=== PATIENT | female | born 1950 | race Caucasian/White ===

== ENCOUNTER → 2018-02-26 16:37 | Outpatient (CLI) | payer MEDICARE, SELFPAY | PROVIDERS: PCP Family Medicine; Visit Provider Internal Medicine | DX: L03.031 Cellulitis of right toe (principal) | CPT/HCPCS: 87070; 87075; 87205 ==

== ENCOUNTER 2018-06-07 15:57 | Emergency (ER) | payer MEDICARE, SELFPAY ==
[2018-06-07 16:05] VITALS: BP 155/114; PULSE 133; RESP 16; TEMP 36.6; O2SAT 93; BMI 31.9
--- NOTE | 2018-06-07 16:10 | DI.RAD.S_ITS ---
PROCEDURE: XR CHEST 1V INDICATIONS: chest pain TECHNIQUE: One view of the chest was acquired. COMPARISON: None. FINDINGS: Surgical changes and devices: None. Lungs and pleura: Linear areas of increased attenuation are seen within the right hilar region and the left costophrenic angle. No focal consolidation, effusion, or pneumothorax is evident. Mediastinum: Mediastinal contours appear normal. Heart size is enlarged. Bones and chest wall: No suspicious bony lesions. Degenerative changes of the spine and shoulders are not adequately evaluated. Overlying soft tissues appear unremarkable. IMPRESSION: 1. Cardiomegaly without overt heart failure. 2. Scar versus atelectasis within the right hilum and left costophrenic angle. No definite pneumonia. Dictated by: James Pedro M.D. on 06/07/2018 at 16:23 Approved by: James Pedro M.D. on 06/07/2018 at 16:24
[2018-06-07 16:21] LABS: Add Manual Diff / Slide Review NO; Eosinophils Percent Auto 2.8 % (2-4); Hematocrit 44.3 % (36-46); Hemoglobin 14.5 g/dL (12.0-16.0); Lymphocytes Percent Auto 19.3 % (25-40); Mean Corpuscular HGB Conc 32.8 % (30-36); Mean Corpuscular Hemoglobin 28.7 PG (26-34); Mean Corpuscular Volume 87.3 fL (80-100); Monocytes Percent Auto 7.9 % (3-14); Neutrophils Absolute Auto 7900 /uL (3000-5900); Platelet Count 289 X10^3/uL (150-400); Red Blood Cell Count 5.07 X10^6/uL (4.0-5.2); Red Cell Distribution Width 14.4 % (11.6-14.8); White Blood Cell Count 11.4 X10^3/uL (4.5-11.0)
[2018-06-07 16:24] VITALS: BP 134/103; PULSE 143
[2018-06-07] MEDS: SODIUM CHLORIDE 0.9% 1,000 ML 150 ML IV (16:24)
[2018-06-07] MEDS: dilTIAZem 5 MG/ML SDV 10 MG IV ×2 (16:24→16:48)
[2018-06-07 16:29] LABS: Prothrombin Time 12.1 SECONDS (10.1-12.7)
[2018-06-07 16:31] LABS: PTT Partial Thromboplastin Tim 29 SECONDS (26.4-36.2)
[2018-06-07 16:34] LABS: Alanine Aminotransferase 25 IU/L (9-52); Albumin Globulin Ratio 1.3 (1.0-2.8); Alkaline Phosphatase 85 U/L (38-126); Aspartate Aminotransferase 22 IU/L (14-36); BUN Creatinine Ratio 27.3 (6-22); Bilirubin Total 0.5 mg/dL (0.2-1.3); Blood Urea Nitrogen 30 mg/dL (7-17); Calcium 9.9 mg/dL (8.4-10.2); Carbon Dioxide 29 mmol/L (22-32); Chloride 103 mmol/L (98-107); Creatine Kinase 109 U/L (30-135); Estimated Glomerular Filt Rate 49.2 mL/min (>60); Globulin 3.1 g/dL (1.7-4.1); Glucose 93 mg/dL (80-110); HEMOLYSIS 17 (0-50); Magnesium 1.8 mg/dL (1.6-2.3); Sodium 142 mmol/L (137-145); Total Protein 7.1 g/dL (6.3-8.2)
[2018-06-07 16:46] LABS: Troponin I < 0.012 ng/mL (0.01-0.034)
[2018-06-07 16:48] VITALS: BP 136/84; PULSE 117
[2018-06-07 16:50] LABS: CKMB % Relative Index 1.6 % (1.5-5.0); Creatine Kinase MB 1.76 ng/mL (<2.37)
--- NOTE | 2018-06-07 16:54 | PC.NURSE ---
pt c/o abd discomfort, described as butterflys for the past few weeks, pt states she has also had a few episodes of dizziness intermittently.
[2018-06-07 16:58] VITALS: BP 143/84; PULSE 102; RESP 16; O2SAT 98
[2018-06-07] MEDS: METOPROLOL IR 25 MG TABLET PO (17:27)
[2018-06-07 17:34] LABS: Thyroid Stimulating Hormone 0.53 uIU/mL (0.47-4.68)
--- NOTE | 2018-06-07 17:37 | ED_ITS ---
HPI - Arrhythmia/Palpitations General Chief Complaint: Arrhythmia/Palpitations Stated Complaint: Heart Racing Time Seen by Provider: 06/07/18 16:10 Source: patient Mode of arrival: ambulatory Limitations: no limitations History of Present Illness HPI narrative: Patient is a 67-year-old female presenting from PCP with new onset AFib with RVR. He is actually there for abdominal discomfort diarrhea. She said that she has been having diarrhea off and on for awhile. She denies any nausea or vomiting. She has no chest pain heart palpitations shortness of breath neck pain lightheadedness dizziness. Related Data Home Medications Medication Instructions Recorded Confirmed multivitamin 1 cap PO EVERY DAY #0 10/01/10 06/07/18 cyanocobalamin (vitamin B-12) 1,000 mcg PO DAILY #0 08/05/16 06/07/18 Calcium 1 dose PO DAILY 06/07/18 06/07/18 albuterol sulfate [Ventolin HFA] 2 - 4 puff INH Q4H PRN 06/07/18 06/07/18 atorvastatin [Lipitor] 10 mg PO BEDTIME 06/07/18 06/07/18 cholecalciferol (vitamin D3) 2,000 unit PO DAILY 06/07/18 06/07/18 [Vitamin D3] fluticasone 1 spray INTRANASAL DAILY 06/07/18 06/07/18 fluticasone-vilanterol [Breo 1 inhalation INHALATION DAILY 06/07/18 06/07/18 Ellipta] gabapentin [Neurontin] 600 mg PO BID 06/07/18 06/07/18 levothyroxine 75 mcg PO DAILY 06/07/18 06/07/18 losartan-hydrochlorothiazide 1 tab PO DAILY 06/07/18 06/07/18 omeprazole magnesium [Prilosec OTC] 20 mg PO DAILY 06/07/18 06/07/18 Previous Rx's Medication Instructions Recorded metoprolol tartrate 25 mg PO BID #60 tab 06/07/18 warfarin [Coumadin] 5 mg PO DAILY #30 tab 06/07/18 Allergies Allergy/AdvReac Type Severity Reaction Status Date / Time No Known Drug Allergies Allergy Verified 06/07/18 15:04 Review of Systems Review of Systems All systems reviewed & are unremarkable except as noted in HPI and below Constitutional Denies chills, Denies fever(s), Denies lethargy and Denies weakness Cardiovascular Reports as per HPI, Denies dyspnea and Denies dyspnea on exertion Respiratory Denies cough, Denies dyspnea, Denies dyspnea on exertion and Denies wheezing Gastrointestinal Gastrointestinal: Reports abdominal pain, Denies change in bowel habits, Reports diarrhea, Denies nausea and Denies vomiting Musculoskeletal Denies back pain, Denies muscle weakness, Denies numbness and Denies tingling Integumentary/Breasts Denies pruritus, Denies erythema, Denies rash and Denies wounds Neurologic Denies numbness, Denies tingling and Denies weakness Allergic/Immunologic Denies wheezing [facility] Medical History Asthma (Chronic) Hyperlipidemia (Chronic) Hypertension (Chronic ~1997) Hypothyroidism (Chronic ~2007) Osteoarthritis (Chronic) Recurrent sinusitis (Chronic ~1999) Seasonal allergies (Chronic) Sleep apnea (Chronic) Chickenpox (Resolved) History of torn meniscus of right knee (Resolved) Measles (Resolved) Surgical History History of foot surgery (Resolved) Polyp of nasal sinus (Resolved) Anesthesia (Inactive) History of hip replacement (~2010) History of hip replacement (~2012) Status post hysterectomy with oophorectomy (~1996) Family History Father Heart disease Hypertension Mother Heart disease Stroke Hypertension Diabetes mellitus Dementia Grandfather Cancer Grandmother No problems noted. Grandfather No problems noted. Grandmother No problems noted. Social History Smoking Status: Former smoker Exam Initial Vital Signs Initial Vital Signs: Vital Signs Temperature 98 F 06/07/18 16:05 Pulse Rate 133 H 06/07/18 16:05 Respiratory Rate 16 06/07/18 16:05 Blood Pressure 155/114 H 06/07/18 16:05 Pulse Oximetry 93 06/07/18 16:05 GENERAL: Alert female no acute distress HEENT: Head atraumatic,EOMI, pupils reactive CARDIOVASCULAR: Tachycardic irregularly irregular RESPIRATORY: Breath sounds equal bilaterally, no wheezes rales or rhonchi. ABDOMEN: Soft, nontender. Normoactive bowel sounds all 4 quadrants. No guarding or rebound. EXTREMITIES: Normal range of motion, no clubbing or edema. Neurovascularly intact NEUROLOGICAL: Alert and oriented x4.Normal gait and speech. SKIN: Warm, dry, no laceration, no petechiae, no rashes or lesions. Course Orders Ordered: ED Orders 06/07/18 16:05 Complete Blood Count AUTO DIFF Stat Comprehensive Metabolic Panel Stat Magnesium Stat Partial Thromboplastin Time Stat Prothrombin Time INR Stat Thyroid Stimulating Hormone Stat Troponin & CK Cardiac Panel Stat 06/07/18 16:10 XR chest 1V Stat Discontinued Medications Diltiazem HCl (Cardizem) 10 mg IV NOW ONE Stop: 06/07/18 16:11 Last Admin: 06/07/18 16:24 Dose: 10 mg Diltiazem HCl (Cardizem) 10 mg IV NOW ONE Stop: 06/07/18 16:48 Last Admin: 06/07/18 16:48 Dose: 10 mg Sodium Chloride (Normal Saline 0.9%) 1,000 mls @ 150 mls/hr IV CONT BINH Last Infusion: 06/07/18 18:04 Dose: 0 mls/hr Admin: 06/07/18 16:24 Dose: 150 mls/hr Metoprolol Tartrate (Lopressor) 25 mg PO NOW ONE Stop: 06/07/18 17:16 Last Admin: 06/07/18 17:27 Dose: 25 mg Warfarin Sodium (Coumadin) 5 mg PO NOW ONE Stop: 06/07/18 17:31 Last Admin: 06/07/18 17:52 Dose: 5 mg Vital Signs - 8 hr 06/07/18 16:05 06/07/18 16:24 06/07/18 16:48 Temperature 98 F Pulse Rate 133 H 143 H 117 H Respiratory Rate 16 Blood Pressure 155/114 H 134/103 H 136/84 Blood Pressure [Left Arm] Pulse Oximetry 93 06/07/18 16:58 06/07/18 18:05 Temperature Pulse Rate 102 H 92 H Respiratory Rate 16 16 Blood Pressure 141/81 H Blood Pressure [Left Arm] 143/84 H Pulse Oximetry 98 98 MDM - Arrhythmia/Palpitations Lab Data Attestation: I reviewed the patient's lab results. Result diagrams: 06/07/18 16:05 06/07/18 16:05 Lab Results 06/07/18 06/07/1818 Range/Units 16:05 16:05 16:05 WBC 11.4 H (4.5-11.0) X10^3/uL RBC 5.07 (4.0-5.2) X10^6/uL Hgb 14.5 (12.0-16.0) g/dL Hct 44.3 (36-46) % MCV 87.3 (80-100) fL MCH 28.7 (26-34) PG MCHC 32.8 (30-36) % RDW 14.4 (11.6-14.8) % Plt Count 289 (150-400) X10^3/uL Neut % (Auto) 69.0 (50-75) % Lymph % (Auto) 19.3 L (25-40) % Atkinson % (Auto) 7.9 (3-14) % Eos % (Auto) 2.8 (2-4) % Baso % (Auto) 1.0 (0-2) % Neut # (Auto) 7900 H (5706-6419) /uL PT 12.1 (10.1-12.7) SECONDS INR 1.0 (0.9-1.3) APTT 29 (26.4-36.2) SECONDS Sodium 142 (137-145) mmol/L Potassium 4.0 (3.4-5.1) mmol/L Chloride 103 (98-107) mmol/L Carbon Dioxide 29 (22-32) mmol/L BUN 30 H (7-17) mg/dL Creatinine 1.10 H (0.52-1.04) mg/dL Estimated GFR 49.2 L (>60) mL/min BUN/Creatinine Ratio 27.3 H (6-22) Glucose 93 (80-110) mg/dL Calcium 9.9 (8.4-10.2) mg/dL Magnesium 1.8 (1.6-2.3) mg/dL Total Bilirubin 0.5 (0.2-1.3) mg/dL AST 22 (14-36) IU/L ALT 25 (9-52) IU/L Alkaline Phosphatase 85 (38-126) U/L Total Creatine Kinase 109 (30-135) U/L CK-MB (CK-2) 1.76 (<2.37) ng/mL CK-MB (CK-2) Rel Index 1.6 (1.5-5.0) % Troponin I < 0.012 (0.01-0.034) ng/mL Total Protein 7.1 (6.3-8.2) g/dL Albumin 4.0 (3.5-5.0) g/dL Globulin 3.1 (1.7-4.1) g/dL Albumin/Globulin Ratio 1.3 (1.0-2.8) TSH (0.47-4.68) uIU/mL 06/07/18 Range/Units 16:05 WBC (4.5-11.0) X10^3/uL RBC (4.0-5.2) X10^6/uL Hgb (12.0-16.0) g/dL Hct (36-46) % MCV (80-100) fL MCH (26-34) PG MCHC (30-36) % RDW (11.6-14.8) % Plt Count (150-400) X10^3/uL Neut % (Auto) (50-75) % Lymph % (Auto) (25-40) % Atkinson % (Auto) (3-14) % Eos % (Auto) (2-4) % Baso % (Auto) (0-2) % Neut # (Auto) (4024-8077) /uL PT (10.1-12.7) SECONDS INR (0.9-1.3) APTT (26.4-36.2) SECONDS Sodium (137-145) mmol/L Potassium (3.4-5.1) mmol/L Chloride (98-107) mmol/L Carbon Dioxide (22-32) mmol/L BUN (7-17) mg/dL Creatinine (0.52-1.04) mg/dL Estimated GFR (>60) mL/min BUN/Creatinine Ratio (6-22) Glucose (80-110) mg/dL Calcium (8.4-10.2) mg/dL Magnesium (1.6-2.3) mg/dL Total Bilirubin (0.2-1.3) mg/dL AST (14-36) IU/L ALT (9-52) IU/L Alkaline Phosphatase (38-126) U/L Total Creatine Kinase (30-135) U/L CK-MB (CK-2) (<2.37) ng/mL CK-MB (CK-2) Rel Index (1.5-5.0) % Troponin I (0.01-0.034) ng/mL Total Protein (6.3-8.2) g/dL Albumin (3.5-5.0) g/dL Globulin (1.7-4.1) g/dL Albumin/Globulin Ratio (1.0-2.8) TSH 0.53 (0.47-4.68) uIU/mL Imaging Data Chest x-ray: Radiologist's impression: PROCEDURE: XR CHEST 1V INDICATIONS: chest pain TECHNIQUE: One view of the chest was acquired. COMPARISON: None. FINDINGS: Surgical changes and devices: None. Lungs and pleura: Linear areas of increased attenuation are seen within the right hilar region and the left costophrenic angle. No focal consolidation, effusion, or pneumothorax is evident. Mediastinum: Mediastinal contours appear normal. Heart size is enlarged. Bones and chest wall: No suspicious bony lesions. Degenerative changes of the spine and shoulders are not adequately evaluated. Overlying soft tissues appear unremarkable. IMPRESSION: 1. Cardiomegaly without overt heart failure. 2. Scar versus atelectasis within the right hilum and left costophrenic angle. No definite pneumonia. Dictated by: James Pedro M.D. on 06/07/2018 at 16:23 ECG Data Attestation: I personally reviewed and interpreted this ECG as follows: Interpretation: AFib with RVR rate [address] changes MDM Narrative Medical decision making narrative: The patient is completely asymptomatic. Her heart rate is 151 it does respond well to diltiazem. A discussed at length with her her options of anticoagulation, at this time she would like to start Coumadin. She understands that it will need to be checked. I have called and spoken with Dr. Juan who recommends that she call office Monday to have an INR checked. KERA?DS?-VASc Score for Atrial Fibrillation Stroke Risk from [employer] on 2017 All calculations should be rechecked by clinician prior to use RESULT SUMMARY: 2 points Stroke risk was 2.2% per year in >90,000 patients (the [place] Atrial Fibrillation Cohort Study) and 2.9% risk of stroke/TIA/systemic embolism. One recommendation suggests a 0 score is ?low? risk and may not require anticoagulation; a 1 score is ?low-moderate? risk and should consider antiplatelet or anticoagulation, and score 2 or greater is ?moderate-high? risk and should otherwise be an anticoagulation candidate. INPUTS: Age ?> 0 = <65 Sex ?> 1 = Female <abbr title='Congestive heart failure'>CHF</abbr> history ?> 0 = No Hypertension history ?> 1 = Yes Stroke / TIA / Thromboembolism history ?> 0 = No Vascular disease history ?> 0 = No Diabetes history ?> 0 = No Discharge Plan Departure Patient Disposition: Home Clinical Impression: Atrial fibrillation Discharge Date/Time: 06/07/18 18:07 Interventions: ED Discharge Assessment Last Done: 06/07/18 18:05 Instructions: Atrial Fibrillation Activity Restrictions/Additional Instructions: *You have been diagnosed with atrial fibrillation *What to do: You will need to have your INR checked frequently initially. *Continue to take medications as directed: FAXED TO [employer] [place] [employer] [facility] Metoprolol 25 mg twice a day Coumadin/warfarin 5 mg once a day *Follow up with your primary care provider in 2-3 days, call tomorrow to set up INR appointment next week and Dr. Valladares will see you when she returned *Return to ER if you should have bloody stool, chest pain, heart palpitations, trauma or injury to head or any new, worsening or concerning symptoms Prescriptions: New warfarin [Coumadin] 5 mg tablet 5 mg PO DAILY Qty: 30 RF: 0 metoprolol tartrate 25 mg tablet 25 mg PO BID Qty: 60 RF: 0 No Action multivitamin 1 cap PO EVERY DAY Qty: 0 RF: 0 cyanocobalamin (vitamin B-12) 1,000 MCG tablet extended release 1,000 mcg PO DAILY Qty: 0 RF: 0 levothyroxine 75 mcg tablet 75 mcg PO DAILY RF: 0 atorvastatin [Lipitor] 10 mg tablet 10 mg PO BEDTIME RF: 0 gabapentin [Neurontin] 300 mg capsule 600 mg PO BID RF: 0 losartan-hydrochlorothiazide 50-12.5 mg tablet 1 tab PO DAILY RF: 0 omeprazole magnesium [Prilosec OTC] 20 mg Tablet,Delayed Release (Dr/Ec) 20 mg PO DAILY RF: 0 cholecalciferol (vitamin D3) [Vitamin D3] 2,000 unit Capsule 2,000 unit PO DAILY RF: 0 Calcium 1 dose PO DAILY RF: 0 albuterol sulfate [Ventolin HFA] 90 MCG/PUFF HFA aerosol inhaler 2 - 4 puff INH Q4H PRN (Reason: Shortness Of Breath) RF: 0 fluticasone 16 GM spray,suspension 1 spray Intranasal DAILY RF: 0 fluticasone-vilanterol [Breo Ellipta] 100-25 mcg/dose blister with device 1 inhalation INHALATION DAILY RF: 0 Referrals: Tasha Valladares DO [Primary Care Provider] -
[2018-06-07] MEDS: WARFARIN 5 MG TABLET PO (17:52)
[2018-06-07 18:05] VITALS: BP 141/81; PULSE 92; RESP 16; O2SAT 98
== END 2018-06-07 18:07 | disposition home or self-care (01) ==
PROVIDERS: Emergency Provider Emergency Medicine; PCP Family Medicine
DX: I48.91 Unspecified atrial fibrillation (principal)
CPT/HCPCS: 36591; 71045; 80053; 82550; 82553; 83735; 84443; 84484; 85025; 85610; 85730; 93005; 93010; 96361; 96374; 96376; 99283; 99285

== ENCOUNTER → 2018-06-08 06:01 | Outpatient (CLI) | payer MEDICARE, SELFPAY | PROVIDERS: PCP Family Medicine; Visit Provider Family Medicine ==

== ENCOUNTER → 2018-06-12 13:30 | Outpatient (CLI) | payer MEDICARE, SELFPAY ==
[2018-06-12 15:43] LABS: Adenovirus F 40/41 Not Detected (Not Detect); Astrovirus Not Detected (Not Detect); Campylobacter Not Detected (Not Detect); Clostridium difficile toxin AB Not Detected (Not Detect); Cryptosporidium Not Detected (Not Detect); Cyclospora cayetanensis Not Detected (Not Detect); Entamoeba histolytica Not Detected (Not Detect); Enteroaggregative E.coli Not Detected (Not Detect); Enteropathogenic E.coli Not Detected (Not Detect); Enterotoxigenic E.coli It/st Not Detected (Not Detect); Giardia lamblia Not Detected (Not Detect); Norovirus GI/GII Not Detected (Not Detect); Plesiomonsa shigelloides Not Detected (Not Detect); Rotavirus A Not Detected (Not Detect); Salmonella Not Detected (Not Detect); Sapovirus Not Detected (Not Detect); Shiga-like toxin-prod E.coli Not Detected (Not Detect); Shigella/Enteroinvasive E.coli Not Detected (Not Detect); Vibrio Not Detected (Not Detect); Vibrio cholerae Not Detected (Not Detect); Yersinia enterocolitica Not Detected (Not Detect)
== END ==
PROVIDERS: Family Provider Family Medicine; PCP Family Medicine; Visit Provider Internal Medicine
DX: R19.7 Diarrhea, unspecified (principal)
CPT/HCPCS: 87507

== ENCOUNTER → 2018-06-27 09:38 | Outpatient (CLI) | payer MEDICARE, SELFPAY ==
--- NOTE | 2018-06-27 09:40 | DI.ECHO.S_ITS ---
[place] +---------+ [facility] +---------+ : : [address] : : : : [id number] : : : : Phone: [phone]+ Echocardiogram Report + + :Name: NITZA ARAUJO Study Date: 06/27/2018 Height: 65 in : :[facility] Weight: 206 lb : : Gender: Female BSA: 2.0 m2 : :: 1950 Age: 67 yrs BP: 112/78 mmHg: :Reason For Study: Atrial fibrillation : : Performed By: Mary Boyd : :Referring: ALLYSON CA R : + + Interpretation Summary The study quality was technically adequate. The patient was in atrial fibrillation with heart rates between 109-139 bpm during the exam. -The left ventricle is normal in size and wall thickness. Ejection fraction is 60-65% although there is [id number] variability due to atrial fibrillation. There is no obvious regional wall motion abnormalities. -Diastolic function could not be accurately assessed due to atrial fibrillation. -The right ventricle is normal in size and function by visual assessment.TAPSE is at least 1.8 cm. -The right ventricular systolic pressure is estimated to be at least 31 mmHg based on an estimated right atrial pressure of 3 mm Hg. -No significant valve pathology. -There is no prior echocardiogram noted for this patient. Procedure: A two-dimensional transthoracic echocardiogram with color flow and Doppler was performed. The study quality was technically adequate. There is no prior echocardiogram noted for this patient. The patient was in atrial fibrillation with heart rates between 109-139 bpm during the exam. Left Ventricle: The left ventricle is normal in size. There is normal left ventricular wall thickness. The ejection fraction is estimated to be 60-65%. There are no obvious focal wall motion abnormalities noted but poor endocardial definition reduces the sensitivity for the detection of such. Diastolic function could not be accurately assessed due to atrial fibrillation. Right Ventricle: The right ventricle is normal in size and function. Atria: The left atrium is mildly dilated. Right atrial size is normal. There is no Doppler evidence for an interatrial shunt. Mitral Valve: The mitral valve is grossly normal. There is no mitral valve stenosis. There is mild to moderate mitral regurgitation. Aortic Valve: The aortic valve is trileaflet. The aortic valve opens well. There is no aortic valve stenosis. No aortic regurgitation is present. Tricuspid Valve: The tricuspid valve leaflets are thin and pliable. There is mild to moderate tricuspid regurgitation. The right ventricular systolic pressure is estimated to be at least 31 mmHg based on an estimated right atrial pressure of 3 mm Hg. Pulmonic Valve: The pulmonic valve is not well seen, but is grossly normal. There is no pulmonic valvular regurgitation. Great Vessels: The aortic root is normal size. The dimensions of the ascending aorta are normal. The aortic arch is normal in size. The IVC is of normal diameter and collapses greater than 50% with a sniff. This suggests a low right atrial pressure of 3 mm Hg. Pericardium/ Pleura There is no pericardial effusion. There is no pleural effusion. MMode/2D Measurements & Calculations LVIDd: 4.6 cm Ao root diam: 3.0 cm LVIDs: 3.0 cm Aortic Jxn: 2.6 cm FS: 34.4 % asc Aorta Diam: 3.1 cm EPSS: 0.18 cm Ao Arch Diam (Prox Trans): 2.8 cm IVSd: 0.86 cm LVPWd: 0.80 cm LV abdalla. diameter/BSA (cm/m^2): 2.3 LV sys. diameter/BSA (cm/m^2): 1.5 LA dimension: 4.5 cm RA long axis: 5.3 cm LA A2 area: 22.4 cm2 RA area: 19.3 cm2 LA A4 area: 23.7 cm2 RA vol: 59.7 ml LA length (vol): 5.6 cm RA : 29.8 ml/m2 LA vol: 80.1 ml IVC diam: 2.0 cm LA vol index: 40.0 ml/m2 RVDd major: 5.8 cm RVD1 (basal): 3.2 cm RVD2 (mid): 2.9 cm Doppler Measurements & Calculations Ao V2 max: 108.5 cm/sec MV P1/2t: 43.5 msec Ao V2 mean: 72.5 cm/sec Ao max P.7 mmHg Ao mean P.4 mmHg Ao V2 VTI: 18.9 cm TR max alley: 264.8 cm/sec MV V2 mean: 61.8 cm/sec TR max P.1 mmHg MV mean P.0 mmHg PA V2 max: 63.2 cm/sec MV V2 VTI: 14.4 cm PA V2 mean: 43.8 cm/sec PA mean P.86 mmHg PA Accel Time: 0.08 sec MV P1/2t max alley: 109.6 cm/sec MVA(P1/2t): 5.1 cm2 Electronically signed by: Tomasz Rivers M.D. on Reading Physician:06/27/2018 11:14 AM
== END ==
PROVIDERS: PCP Family Medicine; Visit Provider Internal Medicine
DX: I48.91 Unspecified atrial fibrillation (principal); I08.1 Rheumatic disorders of both mitral and tricuspid valves
CPT/HCPCS: 93306

== ENCOUNTER → 2018-07-17 13:45 | Outpatient (CLI) | payer MEDICARE, SELFPAY ==
--- NOTE | 2018-07-17 13:46 | DI.NM.S_ITS ---
PROCEDURE: NM BARRY PERF SPECT R&S PHARM Rest and pharmacological stress myocardial perfusion SPECT with gated imaging and ejection fraction RADIOPHARMACEUTICAL: 23.9 mCi Tc-99m tetrafosmin IV at rest and 24.3 mCi Tc-99m tetrafosmin IV at peak effect of pharmacological stress. [id number] was performed. INDICATIONS: Afib TECHNIQUE: Radiopharmaceutical was injected at peak stress test, and also at rest. SPECT images were obtained. SPECT myocardial perfusion images were displayed in short axis, horizontal long axis, and vertical long axis views. Gated images were reviewed using [employer] software. COMPARISON: None. CARDIAC STRESS: A pharmacologic stress test was performed under the supervision of an attending staff, using an infusion of lexiscan 0.4mg IV X1. Hemodynamic data: There is normal blood pressure and heart rate response to pharmacologic stress. Symptoms: The patient denied anginal chest pain. Aminophylline: none EKG: Atrial fibrillation with rapid ventricular response present throughout the study. No diagnostic changes of ischemia. FINDINGS: Raw data: There is good myocardial uptake of radiotracer. No significant motion artifacts. Nalt-rj-dgbwa ratio is 0.39 (normal is less than 0.38 for tetrafosmin tracer). Left ventricle function: Gated images demonstrate normal left ventricular wall thickening. No segmental wall motion abnormalities. No transient ischemic dilation; TID is 0.88 (normal less than 1.3). Left ventricle resting end diastolic volume is 48 mL. Left ventricle stress ejection fraction is 75%; normal range is above 45%. Myocardial perfusion: There is normal distribution of activity in the right and left ventricular myocardium. No fixed or reversible perfusion defects. IMPRESSION: Low risk, normal pharmaceutical nuclear stress test. Atrial fibrillation with rapid ventricular response present throughout the study. 1) Normal perfusion images, with no evidence of ischemia or infarction. 2) Normal left ventricular size, wall motion, and systolic function (post stress EF 75%). 3) No ECG evidence of ischemia. 4) Atrial fibrillation with rapid ventricular response present throughout the study. 5) No angina during the study. 6) No prior nuclear stress test available for comparison. Dictated by: Roseline Koo MD on 07/18/2018 at 12:55 Approved by: Roseline Koo MD on 07/18/2018 at 12:58
--- NOTE | 2018-07-17 14:59 | PM.TREADMILL ---
Cardiac Stress Test Report Referral & Results Date Patient Seen: 07/17/18 Requesting provider: Tasha Valladares Indication: Atrial fibrillation Rest ECG: Atrial fibrillation with rapid ventricular response Procedure Note: After both written and verbal informed consent the patient had an IV started by the diagnostic imaging RN, and then was hooked up to the treadmill monitoring system. The Lexiscan material, and then the Cardiolite tracer, were administered sequentially. An additional 3 min was spent monitoring the patient while supine on the gurney. The patient had a normal response to all infused materials. Impression: Patient had normal response as above, perfusion imaging will be reported separately Patient also tachycardic at rest. She was instructed to double the dose of her metoprolol so that she will now be taking 50 mg metoprolol tartrate twice daily. She has a follow-up with Dr. Valladares in 10 days or so Please note: Actual ECG tracings can be found in the PACS system.
== END ==
PROVIDERS: PCP Family Medicine; Visit Provider Internal Medicine
DX: I48.91 Unspecified atrial fibrillation (principal)
CPT/HCPCS: 78452; 93016; 93017; 93018; A9502; J2785

== ENCOUNTER → 2018-11-02 10:42 | Outpatient (CLI) | payer MEDICARE, SELFPAY ==
[2018-11-02 11:51] LABS: Alanine Aminotransferase 21 IU/L (9-52); Albumin Globulin Ratio 1.3 (1.0-2.8); Alkaline Phosphatase 80 U/L (38-126); Aspartate Aminotransferase 22 IU/L (14-36); Bilirubin Total 0.7 mg/dL (0.2-1.3); Blood Urea Nitrogen 25 mg/dL (7-17); Calcium 9.3 mg/dL (8.4-10.2); Carbon Dioxide 31 mmol/L (22-32); Chloride 100 mmol/L (98-107); Estimated Glomerular Filt Rate 54.8 mL/min (>60); Globulin 3.1 g/dL (1.7-4.1); Glucose 89 mg/dL (80-110); HEMOLYSIS < 15 (0-50); Magnesium 1.7 mg/dL (1.6-2.3); Potassium 3.7 mmol/L (3.4-5.1); Sodium 139 mmol/L (137-145); Total Protein 7.1 g/dL (6.3-8.2)
[2018-11-02 13:24] LABS: Thyroid Stimulating Hormone 0.15 uIU/mL (0.47-4.68)
[2018-11-03 12:13] LABS: Free T3, Triiodothyronine Free 3.42 pg/mL (2.77-5.27); Free T4, Direct Thyroxine 2.63 ng/dL (0.78-2.19)
== END ==
PROVIDERS: Family Provider Family Medicine; PCP Family Medicine; Visit Provider Internal Medicine Cardiovascular Disease
DX: I48.1 Persistent atrial fibrillation (principal); I10 Essential (primary) hypertension; E03.9 Hypothyroidism, unspecified
CPT/HCPCS: 36415; 80053; 83735; 84439; 84443; 84481

== ENCOUNTER → 2018-11-20 11:37 | Outpatient (CLI) | payer MEDICARE, SELFPAY ==
[2018-11-20 12:09] LABS: Add Manual Diff / Slide Review NO; Basophils Absolute Auto 100 /uL (0-100); Eosinophils Absolute Auto 300 /uL (0-450); Eosinophils Percent Auto 3.3 % (2-4); Hematocrit 45.6 % (36-46); Lymphocytes Absolute Auto 1500 /uL (1100-4500); Lymphocytes Percent Auto 16.4 % (25-40); Mean Corpuscular HGB Conc 32.8 % (30-36); Mean Corpuscular Hemoglobin 27.8 PG (26-34); Mean Corpuscular Volume 84.7 fL (80-100); Monocytes Absolute Auto 700 /uL (0-900); Neutrophils Absolute Auto 6600 /uL (1500-7000); Neutrophils Percent Auto 71.3 % (50-75); Platelet Count 229 X10^3/uL (150-400); Red Blood Cell Count 5.39 X10^6/uL (4.0-5.2); Red Cell Distribution Width 15.8 % (11.6-14.8); White Blood Cell Count 9.3 X10^3/uL (4.5-11.0)
== END ==
PROVIDERS: Family Provider Family Medicine; PCP Family Medicine; Visit Provider Internal Medicine Cardiovascular Disease
DX: I48.1 Persistent atrial fibrillation (principal)
CPT/HCPCS: 36415; 85025

== ENCOUNTER → 2018-12-06 12:47 | Outpatient (CLI) | payer MEDICARE, SELFPAY ==
[2018-12-06 13:29] LABS: B Type Natriuretic Peptide 227 (<100)
== END ==
PROVIDERS: Family Provider Family Medicine; PCP Family Medicine; Visit Provider Nurse Practitioner
DX: R60.0 Localized edema (principal); I48.1 Persistent atrial fibrillation; I10 Essential (primary) hypertension; R06.02 Shortness of breath
CPT/HCPCS: 36415; 83880

== ENCOUNTER → 2018-12-20 14:38 | Outpatient (CLI) | payer MEDICARE, SELFPAY ==
[2018-12-20 15:44] LABS: BUN Creatinine Ratio 21.8 (6-22); Blood Urea Nitrogen 24 mg/dL (7-17); Calcium 9.3 mg/dL (8.4-10.2); Carbon Dioxide 33 mmol/L (22-32); Chloride 101 mmol/L (98-107); Estimated Glomerular Filt Rate 49.1 mL/min (>60); Glucose 95 mg/dL (80-110); HEMOLYSIS < 15 (0-50); Potassium 4.5 mmol/L (3.4-5.1); Sodium 141 mmol/L (137-145)
== END ==
PROVIDERS: PCP Family Medicine; Visit Provider Nurse Practitioner
DX: I48.1 Persistent atrial fibrillation (principal); I10 Essential (primary) hypertension; R60.0 Localized edema
CPT/HCPCS: 36415; 80048

== ENCOUNTER → 2019-01-14 11:41 | Outpatient (CLI) | payer MEDICARE, SELFPAY ==
[2019-01-14 13:48] LABS: Free T3, Triiodothyronine Free 3.36 pg/mL (2.77-5.27); Free T4, Direct Thyroxine 1.74 ng/dL (0.78-2.19)
[2019-01-14 14:01] LABS: Thyroid Stimulating Hormone 0.32 uIU/mL (0.47-4.68)
[2019-01-14 14:59] LABS: BUN Creatinine Ratio 24.5 (6-22); Blood Urea Nitrogen 27 mg/dL (7-17); Calcium 9.3 mg/dL (8.4-10.2); Carbon Dioxide 29 mmol/L (22-32); Chloride 101 mmol/L (98-107); Estimated Glomerular Filt Rate 49.1 mL/min (>60); Glucose 91 mg/dL (80-110); HEMOLYSIS < 15 (0-50); Magnesium 1.6 mg/dL (1.6-2.3); Sodium 141 mmol/L (137-145)
[2019-01-16 16:05] LABS: Triiodothyronine T3 Total 105 ng/dL (76-181)
== END ==
PROVIDERS: PCP Family Medicine; Visit Provider Internal Medicine Cardiovascular Disease
DX: I48.0 Paroxysmal atrial fibrillation (principal); I10 Essential (primary) hypertension; E03.9 Hypothyroidism, unspecified
CPT/HCPCS: 36415; 80048; 83735; 84436; 84439; 84443; 84480; 84481

== ENCOUNTER → 2019-02-18 10:36 | Outpatient (CLI) | payer MEDICARE, SELFPAY ==
[2019-02-18 11:59] LABS: INR 1.8 (0.9-1.3); Prothrombin Time 21.1 SECONDS (10.1-12.7)
[2019-02-18 12:34] LABS: Thyroid Stimulating Hormone 1.81 uIU/mL (0.47-4.68)
== END ==
PROVIDERS: Nurse Practitioner; PCP Family Medicine; Visit Provider Nurse Practitioner
DX: R00.2 Palpitations (principal); R60.0 Localized edema; I48.1 Persistent atrial fibrillation; I10 Essential (primary) hypertension; R06.02 Shortness of breath; Z51.81 Encounter for therapeutic drug level monitoring; Z79.01 Long term (current) use of anticoagulants
CPT/HCPCS: 36415; 84443; 85610

== ENCOUNTER → 2019-02-28 09:07 | Outpatient (CLI) | payer MEDICARE, SELFPAY ==
--- NOTE | 2019-02-28 | DI.ECHO.S_ITS ---
[facility] +---------+ : : [address] : [address] [place] : : : : [id number] : : : : Phone: [phone]+ Echocardiogram Report + + :Name: NITZA ARAUJO Study Date: 02/28/2019 Height: 65 in : :[facility] Weight: 213 lb : : Gender: Female BSA: 2.0 m2 : :: 1950 Age: 68 yrs BP: 128/75 mmHg: :Reason For Study: AFIB : : Performed By: Chicho Godoy : :Referring: KIERRA MARR N : + + Interpretation Summary The left ventricle is normal in size. Left ventricular ejection fraction is estimated to be 60 +/- 5%. There has been no significant change in LV EF since the previous study. The right ventricle is normal in size and function. There is moderate mitral regurgitation. Compared to the prior echo study, there has been an increase in the severity of mitral regurgitation. There is moderate tricuspid regurgitation. Compared to the prior echo exam, there has been an increase in TR severity. The right ventricular systolic pressure is estimated to be at least 28 mmHg based on an estimated right atrial pressure of 3 mm Hg. Procedure: A two-dimensional transthoracic echocardiogram with color flow and Doppler was performed. The study quality was technically adequate. Comparison is made with the echocardiogram of 06/27/18. The patient was in atrial fibrillation with rapid ventricular response during the exam with a heart rate exceeding 100 bpm. The patient had a heart rate of 80-116 beats per minute. Left Ventricle: The left ventricle is normal in size. There is normal left ventricular wall thickness. There is no thrombus. Left ventricular ejection fraction is estimated to be 60 +/- 5%. There has been no significant change since the previous study. There are no focal wall motion abnormalities. E/E' med: 14.7. Right Ventricle: The right ventricle is normal in size and function. Atria: The left atrium is moderately dilated. Both atria have mildly increased in size since the prior echo exam. The right atrium is moderately dilated. The interatrial septum is intact with no evidence for an atrial septal defect. Mitral Valve: The mitral valve leaflets are slightly calcified. There is mild mitral annular calcification. There is moderate mitral regurgitation. Compared to the prior echo study, there has been an increase in the severity of mitral regurgitation. Aortic Valve: The aortic valve is trileaflet. The aortic valve opens well. There is no aortic valve stenosis. No aortic regurgitation is present. Tricuspid Valve: The tricuspid valve is normal. There is moderate tricuspid regurgitation. The right ventricular systolic pressure is estimated to be at least 28 mmHg based on an estimated right atrial pressure of 3 mm Hg. Compared to the prior echo exam, there has been an increase in TR severity. Compared to the prior echo exam, there has been no change in the severity of pulmonary hypertension. Pulmonic Valve: The pulmonic valve is not well seen, but is grossly normal. There is no pulmonic valvular regurgitation. Great Vessels: The aortic root is normal size. The dimensions of the ascending aorta are normal. The pulmonary artery is normal size. The IVC is of normal diameter and collapses greater than 50% with a sniff. This suggests a low right atrial pressure of 3 mm Hg. Pericardium/ Pleura There is no pericardial effusion. There is no pleural effusion. MMode/2D Measurements & Calculations LVIDd: 4.2 cm LVOT diam: 2.1 cm LVIDs: 2.6 cm Ao root diam: 3.0 cm FS: 38.9 % Aortic Jxn: 2.6 cm EPSS: 0.18 cm asc Aorta Diam: 3.2 cm IVSd: 0.86 cm Ao Arch Diam (Prox Trans): 2.6 cm LVPWd: 0.95 cm LV abdalla. diameter/BSA (cm/m^2): 2.1 LV sys. diameter/BSA (cm/m^2): 1.3 LA dimension: 4.7 cm RA long axis: 5.3 cm LA A2 area: 20.1 cm2 RA area: 23.6 cm2 LA A4 area: 25.7 cm2 RA vol: 89.8 ml LA length (vol): 5.8 cm RA : 44.2 ml/m2 LA vol: 75.4 ml IVC diam: 1.8 cm LA vol index: 37.1 ml/m2 RVD1 (basal): 3.5 cm RVD2 (mid): 3.8 cm Doppler Measurements & Calculations Ao V2 max: 95.6 cm/sec LVOT Max Jordan: 61.4 cm/sec Ao V2 mean: 69.0 cm/sec LV V1 max P.5 mmHg Ao max P.7 mmHg LV V1 VTI: 11.3 cm Ao mean P.1 mmHg GENESIS(I,D): 2.2 cm2 Ao V2 VTI: 17.1 cm GENESIS(V,D): 2.1 cm2 sev ratio: 0.66 GENESIS indexed to BSA (cm^2/m^2): 1.1 MV E max jordan: 91.5 cm/sec TR max jordan: 250.6 cm/sec MV A max jordan: 2.2 cm/sec TR max P.2 mmHg MV E/A: 42.2 PA V2 max: 61.3 cm/sec Med Peak E' Jordan: 6.2 cm/sec PA V2 mean: 47.3 cm/sec E/E' med: 14.7 PA mean P.94 mmHg Lat Peak E' Jordan: 8.4 cm/sec PA pr(Accel): 49.1 mmHg E/E' lat: 10.9 PA Accel Time: 0.07 sec E/e' average: 12.8 MV dec time: 0.13 sec SV(LVOT): 37.6 ml Reading Physician:01:06 PM
== END ==
PROVIDERS: Family Provider Family Medicine; PCP Family Medicine; Visit Provider Nurse Practitioner
DX: I48.1 Persistent atrial fibrillation (principal); R60.0 Localized edema
CPT/HCPCS: 93306

== ENCOUNTER → 2019-05-15 10:46 | Outpatient (CLI) | payer MEDICARE, SELFPAY ==
[2019-05-15 11:34] LABS: Add Manual Diff / Slide Review NO; Basophils Absolute Auto 100 /uL (0-100); Basophils Percent Auto 0.7 % (0-2); Eosinophils Absolute Auto 300 /uL (0-450); Hematocrit 39.1 % (36-46); Hemoglobin 12.9 g/dL (12.0-16.0); Lymphocytes Absolute Auto 1300 /uL (1100-4500); Lymphocytes Percent Auto 12.4 % (25-40); Mean Corpuscular Hemoglobin 28.8 PG (26-34); Mean Corpuscular Volume 87.4 fL (80-100); Monocytes Absolute Auto 1000 /uL (0-900); Monocytes Percent Auto 9.7 % (3-14); Neutrophils Absolute Auto 7800 /uL (1500-7000); Neutrophils Percent Auto 74.2 % (50-75); Platelet Count 230 X10^3/uL (150-400); Red Blood Cell Count 4.47 X10^6/uL (4.0-5.2); Red Cell Distribution Width 14.8 % (11.6-14.8); White Blood Cell Count 10.5 X10^3/uL (4.5-11.0)
[2019-05-15 11:39] LABS: HEMOLYSIS < 15 (0-50); Iron 64 ug/dL (37-170)
[2019-05-15 11:47] LABS: Transferrin 261 mg/dL (206-381)
[2019-05-15 11:57] LABS: Free T3, Triiodothyronine Free 3.42 pg/mL (2.77-5.27); Free T4, Direct Thyroxine 1.83 ng/dL (0.78-2.19)
[2019-05-15 12:11] LABS: Thyroid Stimulating Hormone 2.52 uIU/mL (0.47-4.68)
[2019-05-15 12:18] LABS: Ferritin 13.8 ng/mL (11.1-264); Vitamin D 25 Hydroxy (D3) 45.5 ng/mL (30.0-100.0)
[2019-05-15 12:32] LABS: Vitamin B12 > 1000 pg/mL (239-931)
[2019-05-17 14:04] LABS: Percent Iron Saturation 20 % (15-50); Total Iron Binding Capacity 326 ug/dL (265-497)
[2019-05-17 15:29] LABS: Homocysteine 10.9 umol/L (< 10.4)
[2019-05-17 23:30] LABS: Methylmalonic Acid 281 nmol/L (87-318)
== END ==
PROVIDERS: PCP Family Medicine; Visit Provider Family Medicine
DX: D64.9 Anemia, unspecified (principal); G47.33 Obstructive sleep apnea (adult) (pediatric); G62.9 Polyneuropathy, unspecified; I48.91 Unspecified atrial fibrillation; M81.0 Age-related osteoporosis without current pathological fracture; I10 Essential (primary) hypertension
CPT/HCPCS: 36415; 82306; 82607; 82728; 83090; 83540; 83550; 83921; 84439; 84443; 84481; 85025

== ENCOUNTER → 2019-06-28 11:10 | Outpatient (CLI) | payer MEDICARE, SELFPAY ==
[2019-06-28 12:04] LABS: Blood Urea Nitrogen 24 mg/dL (7-17); Calcium 9.1 mg/dL (8.4-10.2); Carbon Dioxide 30 mmol/L (22-32); Chloride 98 mmol/L (98-107); Estimated Glomerular Filt Rate 44.4 mL/min (>60); Glucose 105 mg/dL (80-110); HEMOLYSIS < 15 (0-50); Potassium 3.7 mmol/L (3.4-5.1); Sodium 137 mmol/L (137-145)
== END ==
PROVIDERS: PCP Family Medicine; Visit Provider Internal Medicine Cardiovascular Disease
DX: I10 Essential (primary) hypertension (principal)
CPT/HCPCS: 36415; 80048

== ENCOUNTER → 2019-11-26 11:21 | Outpatient (CLI) | payer MEDICARE, SELFPAY ==
[2019-12-09 11:26] LABS: Bullous Pemphigoid 230 IgG AB 110.5 U/ml (.)
== END ==
PROVIDERS: PCP Family Medicine; Referring Provider Dermatology; Visit Provider Dermatology
DX: L30.9 Dermatitis, unspecified (principal)
CPT/HCPCS: 83516

== ENCOUNTER → 2019-12-04 12:37 | Outpatient (CLI) | payer MEDICARE, SELFPAY ==
--- NOTE | 2019-12-04 12:38 | DI.CT.S_ITS ---
PROCEDURE: CT CHEST WO CON INDICATIONS: 3 month pulmonary nodule follow up TECHNIQUE: Noncontrast 5 mm thick sections acquired from the pulmonary apices to the posterior costophrenic angles. 1 mm lung window, 5 mm thick coronal and sagittal and 7 mm axial MIP reformats were then acquired. For radiation dose reduction, the following was used: automated exposure control, adjustment of mA and/or kV according to patient size. COMPARISON: None. FINDINGS: Image quality: Excellent. Lungs and pleura: 7 mm left upper lobe lung nodule, stable (3/136). 6 mm subpleural left lower lobe nodule (3/186) subpleural right middle lobe nodule measuring 6 mm (3/193), round right lower lobe 5 mm nodule (182), right middle lobe nodule measuring 5 mm (178), and right pedro-fissural nodules are stable. Mild chronic medial left lower lobe subpleural atelectatic changes and minor bibasilar scarring. No acute air space opacities. No pleural effusions or pneumothorax. Central and peripheral airways are patent and normal in caliber. Mediastinum: Heart size is normal. No pericardial effusion. No mediastinal adenopathy by size criteria. Thoracic aorta and central pulmonary arteries are normal in size. Esophagus is normal in caliber. No hiatal hernia. Bones and chest wall: No suspicious bony lesions. No vertebral body compression fractures. No axillary or supraclavicular adenopathy by size criteria. Thyroid gland is is diminutive.. Abdomen: Visualized upper abdominal solid organs and bowel loops appear normal in the absence of contrast. Prominent gallstone. IMPRESSION: 1. Stable bilateral pulmonary nodules as described. Continued followup in 12 months is recommended. 2. Cholelithiasis. Dictated by: Cammy Barraza M.D. on 12/04/2019 at 14:07 Approved by: Cammy Barraza M.D. on 12/04/2019 at 14:17
== END ==
PROVIDERS: PCP Family Medicine; Referring Provider Family Medicine; Visit Provider Family Medicine
DX: R91.8 Other nonspecific abnormal finding of lung field (principal); K80.20 Calculus of gallbladder without cholecystitis without obstruction
CPT/HCPCS: 71250

== ENCOUNTER → 2020-02-05 08:39 | Outpatient (CLI) | payer MEDICARE, SELFPAY ==
[2020-02-05 09:25] LABS: INR 2.2 (0.9-1.3); Prothrombin Time 25.4 SECONDS (10.1-12.7)
[2020-02-05 09:28] LABS: PTT Partial Thromboplastin Tim 33 SECONDS (26.4-36.2)
[2020-02-05 09:30] LABS: Alanine Aminotransferase 36 IU/L (<35); Albumin 3.6 g/dL (3.5-5.0); Albumin Globulin Ratio 1.2 (1.0-2.8); Alkaline Phosphatase 117 U/L (38-126); Aspartate Aminotransferase 30 IU/L (14-36); BUN Creatinine Ratio 26.4 (6-22); Bilirubin Total 0.8 mg/dL (0.2-1.3); Blood Urea Nitrogen 28 mg/dL (7-17); Calcium 9.2 mg/dL (8.4-10.2); Carbon Dioxide 31 mmol/L (22-32); Chloride 94 mmol/L (98-107); Estimated Glomerular Filt Rate 51.1 mL/min (>60); Glucose 71 mg/dL (80-110); HEMOLYSIS < 15 (0-50); Sodium 132 mmol/L (137-145); Total Protein 6.6 g/dL (6.3-8.2)
== END ==
PROVIDERS: PCP Family Medicine; Referring Provider Family Medicine; Visit Provider Family Medicine
DX: R79.89 Other specified abnormal findings of blood chemistry (principal); Z79.01 Long term (current) use of anticoagulants; I48.91 Unspecified atrial fibrillation; Z79.899 Other long term (current) drug therapy
CPT/HCPCS: 36415; 80053; 85610; 85730

== ENCOUNTER → 2020-02-12 14:33 | Outpatient (CLI) | payer MEDICARE, SELFPAY ==
[2020-02-13 07:22] LABS: Hepatitis B Core Antibody Negative (Negative)
[2020-02-13 07:38] LABS: Hepatitis B Core IgM Negative (Negative); Hepatitis B Surf Ab Qualitativ Non Reactive (.)
[2020-02-13 19:28] LABS: Hepatitis B Surface Antigen NEGATIVE s/c (NEGATIVE)
[2020-02-14 12:35] LABS: Hepatitis B Virus DNA HBV DNA not detected IU/mL (.)
== END ==
PROVIDERS: PCP Family Medicine; Referring Provider Family Medicine; Visit Provider Family Medicine
DX: R76.8 Other specified abnormal immunological findings in serum (principal); R79.89 Other specified abnormal findings of blood chemistry
CPT/HCPCS: 36415; 86704; 86705; 86706; 87340; 87517

== ENCOUNTER → 2020-02-15 10:39 | Outpatient (CLI) | payer MEDICARE, SELFPAY ==
--- NOTE | 2020-02-15 | DI.MG.S_ITS ---
BILATERAL DIGITAL SCREENING MAMMOGRAM 3D/2D WITH CAD: 02/15/2020 CLINICAL: Routine screening. Comparison is made to exams dated: 10/20/2017 mammogram, 09/09/2014 mammogram, and 09/02/2014 mammogram - [facility]. There are scattered fibroglandular elements in both breasts. Current study was also evaluated with a Computer Aided Detection (CAD) system. No significant masses, calcifications, or other findings are seen in either breast. There has been no significant interval change. IMPRESSION: NEGATIVE There is no mammographic evidence of malignancy. A 1 year screening mammogram is recommended. This exam was interpreted at Station ID: [id number]. NOTE: For mammograms, a report in lay terms will be sent to the patient. Approximately 15% of breast malignancies will not be visualized mammographically. In the management of a palpable breast mass, a negative mammogram must not discourage biopsy of a clinically suspicious lesion. Electronically Signed By: Rogerio krishnamurthy/arsen:02/17/2020 07:59:50 letter sent: Normal Exam ACR BI-RADS Category 1: Negative [id number]
== END ==
PROVIDERS: PCP Family Medicine; Referring Provider Family Medicine; Visit Provider Family Medicine
DX: Z12.31 Encounter for screening mammogram for malignant neoplasm of breast (principal)
CPT/HCPCS: 77063; 77067

== ENCOUNTER → 2020-03-03 11:03 | Outpatient (CLI) | payer MEDICARE, SELFPAY ==
--- NOTE | 2020-03-03 11:04 | DI.US.S_ITS ---
PROCEDURE: US ABDOMEN COMPLETE INDICATIONS: Elevated LFTs TECHNIQUE: Real-time scanning was performed of the abdominal and retroperitoneal organs, with image documentation. COMPARISON: [facility], CT, CT CHEST WO CON, 12/04/2019, 12:44. FINDINGS: Liver: Liver is normal in size and homogeneous in echotexture. Gallbladder: Prior CT scanning in December of this year had identified a relatively large calcified gallstone. This calculus can be again seen within the gallbladder lumen, mobile, measuring up to 1.1 x 2.7 x 2.8 cm. Gallbladder wall thickness is normal and there is no tenderness during sonographic palpation of the gallbladder. Biliary ducts: Intrahepatic bile ducts are non-dilated. Extrahepatic bile duct caliber measures 2.0 mm. Normal is 6-7 mm or less in diameter, or 10 mm or less post-cholecystectomy. Pancreas: Visualized portions of the pancreas are sonographically normal. Spleen: Spleen is normal in size and homogeneous in echotexture. Kidneys: Kidneys are normal in size and echotexture. Right kidney measures 10.0 cm long; left kidney measures 10.7 cm long. No hydronephrosis or nephrolithiasis. No solid masses. Aorta: Visualized aorta is normal in caliber at less than 3 cm. Iliacs: Proximal common iliac arteries are normal in caliber at less than 2.5 cm. IVC: Intrahepatic inferior vena cava is patent. Miscellaneous: No free abdominal fluid. IMPRESSION: Large gallstone mobile within the gallbladder lumen, no evidence of acute cholecystitis or biliary obstruction. Source of elevated liver function tests is not found. Depending on the clinical status follow-up by CT scanning may be warranted. Dictated by: Sacha Vanessa M.D. on 03/03/2020 at 14:53 Approved by: Sacha Vanessa M.D. on 03/03/2020 at 14:55
== END ==
PROVIDERS: PCP Family Medicine; Referring Provider Family Medicine; Visit Provider Family Medicine
DX: R79.89 Other specified abnormal findings of blood chemistry (principal); K80.20 Calculus of gallbladder without cholecystitis without obstruction
CPT/HCPCS: 76700

== ENCOUNTER → 2020-03-04 16:47 | Outpatient (CLI) | payer MEDICARE, SELFPAY ==
[2020-03-04 18:11] LABS: Add Manual Diff / Slide Review NO; Basophils Absolute Auto 100 /uL (0-100); Basophils Percent Auto 1.2 % (0-2); Eosinophils Absolute Auto 100 /uL (0-450); Eosinophils Percent Auto 1.5 % (2-4); Hematocrit 37.2 % (36-46); Hemoglobin 12.1 g/dL (12.0-16.0); Lymphocytes Absolute Auto 1000 /uL (1100-4500); Lymphocytes Percent Auto 10.4 % (25-40); Mean Corpuscular HGB Conc 32.5 % (30-36); Mean Corpuscular Hemoglobin 27.1 PG (26-34); Mean Corpuscular Volume 83.2 fL (80-100); Monocytes Absolute Auto 700 /uL (0-900); Monocytes Percent Auto 7.1 % (3-14); Neutrophils Absolute Auto 7400 /uL (1500-7000); Neutrophils Percent Auto 79.8 % (50-75); Platelet Count 241 X10^3/uL (150-400); Red Blood Cell Count 4.47 X10^6/uL (4.0-5.2); White Blood Cell Count 9.3 X10^3/uL (4.5-11.0)
[2020-03-04 18:24] LABS: Reticulocyte Count, Percent 1.4 % (1.06-2.63)
[2020-03-04 18:32] LABS: Alanine Aminotransferase 28 IU/L (<35); Albumin 3.6 g/dL (3.5-5.0); Albumin Globulin Ratio 1.3 (1.0-2.8); Alkaline Phosphatase 104 U/L (38-126); Aspartate Aminotransferase 34 IU/L (14-36); BUN Creatinine Ratio 18.2 (6-22); Bilirubin Total 0.6 mg/dL (0.2-1.3); Blood Urea Nitrogen 18 mg/dL (7-17); Carbon Dioxide 27 mmol/L (22-32); Chloride 99 mmol/L (98-107); Estimated Glomerular Filt Rate 55.3 mL/min (>60); Globulin 2.8 g/dL (1.7-4.1); Glucose 143 mg/dL (80-110); HEMOLYSIS < 15 (0-50); Potassium 3.8 mmol/L (3.4-5.1); Sodium 134 mmol/L (137-145); Total Protein 6.4 g/dL (6.3-8.2)
[2020-03-06 13:45] LABS: Glucose-6-Phosphate Dehydrogen 283 (127-427)
== END ==
PROVIDERS: PCP Family Medicine; Referring Provider Family Medicine; Visit Provider Family Medicine
DX: L12.0 Bullous pemphigoid (principal); R79.89 Other specified abnormal findings of blood chemistry
CPT/HCPCS: 36415; 80053; 82955; 85025; 85041; 85045

== ENCOUNTER → 2020-03-11 11:15 | Outpatient (CLI) | payer MEDICARE, SELFPAY ==
[2020-03-11 11:34] LABS: Add Manual Diff / Slide Review NO; Basophils Absolute Auto 100 /uL (0-100); Basophils Percent Auto 1.1 % (0-2); Eosinophils Absolute Auto 300 /uL (0-450); Eosinophils Percent Auto 2.9 % (2-4); Hematocrit 37.3 % (36-46); Hemoglobin 12.1 g/dL (12.0-16.0); Lymphocytes Absolute Auto 1300 /uL (1100-4500); Lymphocytes Percent Auto 11.4 % (25-40); Mean Corpuscular HGB Conc 32.6 % (30-36); Mean Corpuscular Volume 82.8 fL (80-100); Monocytes Absolute Auto 1300 /uL (0-900); Monocytes Percent Auto 11.6 % (3-14); Neutrophils Absolute Auto 8200 /uL (1500-7000); Platelet Count 265 X10^3/uL (150-400); Red Cell Distribution Width 16.4 % (11.6-14.8); White Blood Cell Count 11.3 X10^3/uL (4.5-11.0)
== END ==
PROVIDERS: PCP Family Medicine; Referring Provider Family Medicine; Visit Provider Family Medicine
DX: Z79.899 Other long term (current) drug therapy (principal)
CPT/HCPCS: 36415; 85025

== ENCOUNTER → 2020-03-18 14:16 | Outpatient (CLI) | payer MEDICARE, SELFPAY ==
[2020-03-18 14:54] LABS: Add Manual Diff / Slide Review NO; Basophils Absolute Auto 200 /uL (0-100); Basophils Percent Auto 1.3 % (0-2); Eosinophils Absolute Auto 400 /uL (0-450); Eosinophils Percent Auto 3.2 % (2-4); Hemoglobin 12.8 g/dL (12.0-16.0); Lymphocytes Absolute Auto 1300 /uL (1100-4500); Lymphocytes Percent Auto 9.9 % (25-40); Mean Corpuscular HGB Conc 31.9 % (30-36); Mean Corpuscular Hemoglobin 26.6 PG (26-34); Mean Corpuscular Volume 83.3 fL (80-100); Monocytes Absolute Auto 1200 /uL (0-900); Monocytes Percent Auto 9.2 % (3-14); Neutrophils Absolute Auto 10300 /uL (1500-7000); Neutrophils Percent Auto 76.4 % (50-75); Platelet Count 257 X10^3/uL (150-400); Red Cell Distribution Width 16.7 % (11.6-14.8); White Blood Cell Count 13.5 X10^3/uL (4.5-11.0)
== END ==
PROVIDERS: PCP Family Medicine; Referring Provider Family Medicine; Visit Provider Family Medicine
DX: Z79.899 Other long term (current) drug therapy (principal)
CPT/HCPCS: 36415; 85025

== ENCOUNTER → 2020-03-25 13:01 | Outpatient (CLI) | payer MEDICARE, SELFPAY ==
[2020-03-25 13:46] LABS: Add Manual Diff / Slide Review NO; Basophils Absolute Auto 100 /uL (0-100); Basophils Percent Auto 0.6 % (0-2); Eosinophils Absolute Auto 200 /uL (0-450); Eosinophils Percent Auto 1.1 % (2-4); Hematocrit 36.8 % (36-46); Hemoglobin 11.8 g/dL (12.0-16.0); Lymphocytes Absolute Auto 1300 /uL (1100-4500); Lymphocytes Percent Auto 9.1 % (25-40); Mean Corpuscular HGB Conc 32.1 % (30-36); Mean Corpuscular Volume 83.9 fL (80-100); Monocytes Absolute Auto 1100 /uL (0-900); Neutrophils Absolute Auto 11600 /uL (1500-7000); Neutrophils Percent Auto 81.2 % (50-75); Platelet Count 224 X10^3/uL (150-400); Red Blood Cell Count 4.38 X10^6/uL (4.0-5.2); Red Cell Distribution Width 17.6 % (11.6-14.8); White Blood Cell Count 14.3 X10^3/uL (4.5-11.0)
== END ==
PROVIDERS: PCP Family Medicine; Referring Provider Family Medicine; Visit Provider Family Medicine
DX: L12.0 Bullous pemphigoid (principal)
CPT/HCPCS: 36415; 85025

== ENCOUNTER → 2020-04-07 13:25 | Outpatient (CLI) | payer MEDICARE, SELFPAY ==
[2020-04-07 14:08] LABS: Hematocrit 35.8 % (36-46); Hemoglobin 11.6 g/dL (12.0-16.0); Mean Corpuscular HGB Conc 32.3 % (30-36); Mean Corpuscular Hemoglobin 27.3 PG (26-34); Mean Corpuscular Volume 84.7 fL (80-100); Platelet Count 192 X10^3/uL (150-400); Red Blood Cell Count 4.23 X10^6/uL (4.0-5.2); Reticulocyte Count, Percent 2.3 % (1.06-2.63); White Blood Cell Count 7.1 X10^3/uL (4.5-11.0)
[2020-04-07 14:19] LABS: Neutrophils Absolute Manual 6106 /uL (3000-5900); RBC Morphology Normal Morphology; Total Cells Counted 100
[2020-04-07 15:11] LABS: Alanine Aminotransferase 30 IU/L (<35); Albumin 3.3 g/dL (3.5-5.0); Albumin Globulin Ratio 1.3 (1.0-2.8); Alkaline Phosphatase 112 U/L (38-126); Aspartate Aminotransferase 33 IU/L (14-36); BUN Creatinine Ratio 18.7 (6-22); Bilirubin Total 0.9 mg/dL (0.2-1.3); Blood Urea Nitrogen 20 mg/dL (7-17); Calcium 8.6 mg/dL (8.4-10.2); Carbon Dioxide 28 mmol/L (22-32); Chloride 97 mmol/L (98-107); Estimated Glomerular Filt Rate 50.6 mL/min (>60); Globulin 2.5 g/dL (1.7-4.1); Glucose 101 mg/dL (80-110); HEMOLYSIS < 15 (0-50); Potassium 3.8 mmol/L (3.4-5.1); Sodium 133 mmol/L (137-145); Total Protein 5.8 g/dL (6.3-8.2)
== END ==
PROVIDERS: PCP Family Medicine; Referring Provider Family Medicine; Visit Provider Family Medicine
DX: L12.0 Bullous pemphigoid (principal); N18.2 Chronic kidney disease, stage 2 (mild); R79.89 Other specified abnormal findings of blood chemistry; Z79.899 Other long term (current) drug therapy
CPT/HCPCS: 36415; 80053; 85025; 85045

== ENCOUNTER → 2020-04-22 12:47 | Outpatient (CLI) | payer MEDICARE, SELFPAY ==
[2020-04-22 14:25] LABS: Add Manual Diff / Slide Review NO; Basophils Absolute Auto 100 /uL (0-100); Basophils Percent Auto 1.4 % (0-2); Eosinophils Absolute Auto 0 /uL (0-450); Hematocrit 35.9 % (36-46); Hemoglobin 11.6 g/dL (12.0-16.0); Lymphocytes Absolute Auto 1100 /uL (1100-4500); Lymphocytes Percent Auto 13.6 % (25-40); Mean Corpuscular HGB Conc 32.2 % (30-36); Mean Corpuscular Hemoglobin 27.6 PG (26-34); Mean Corpuscular Volume 85.6 fL (80-100); Monocytes Absolute Auto 1000 /uL (0-900); Monocytes Percent Auto 12.1 % (3-14); Neutrophils Absolute Auto 6000 /uL (1500-7000); Neutrophils Percent Auto 72.9 % (50-75); Platelet Count 275 X10^3/uL (150-400); Red Blood Cell Count 4.19 X10^6/uL (4.0-5.2); White Blood Cell Count 8.2 X10^3/uL (4.5-11.0)
== END ==
PROVIDERS: PCP Family Medicine; Referring Provider Family Medicine; Visit Provider Family Medicine
DX: Z79.899 Other long term (current) drug therapy (principal)
CPT/HCPCS: 36415; 85025

== ENCOUNTER → 2020-05-09 10:58 | Outpatient (CLI) | payer MEDICARE, SELFPAY ==
[2020-05-09 12:02] LABS: Add Manual Diff / Slide Review NO; Basophils Absolute Auto 100 /uL (0-100); Basophils Percent Auto 1.3 % (0-2); Eosinophils Absolute Auto 0 /uL (0-450); Eosinophils Percent Auto 0.2 % (2-4); Hematocrit 34.3 % (36-46); Hemoglobin 10.9 g/dL (12.0-16.0); Lymphocytes Absolute Auto 1500 /uL (1100-4500); Lymphocytes Percent Auto 14.5 % (25-40); Mean Corpuscular HGB Conc 31.7 % (30-36); Mean Corpuscular Hemoglobin 28.2 PG (26-34); Mean Corpuscular Volume 88.9 fL (80-100); Monocytes Absolute Auto 1400 /uL (0-900); Monocytes Percent Auto 13.4 % (3-14); Neutrophils Absolute Auto 7200 /uL (1500-7000); Neutrophils Percent Auto 70.6 % (50-75); Platelet Count 209 X10^3/uL (150-400); Red Blood Cell Count 3.85 X10^6/uL (4.0-5.2); Red Cell Distribution Width 19.8 % (11.6-14.8); White Blood Cell Count 10.2 X10^3/uL (4.5-11.0)
== END ==
PROVIDERS: PCP Family Medicine; Referring Provider Family Medicine; Visit Provider Family Medicine
DX: Z79.899 Other long term (current) drug therapy (principal); L12.0 Bullous pemphigoid
CPT/HCPCS: 36415; 85025

== ENCOUNTER → 2020-08-12 13:56 | Outpatient (CLI) | payer MEDICARE, SELFPAY ==
[2020-08-12 16:36] LABS: BUN Creatinine Ratio 24.5 (6-22); Blood Urea Nitrogen 23 mg/dL (7-17); Carbon Dioxide 29 mmol/L (22-32); Chloride 103 mmol/L (98-107); Estimated Glomerular Filt Rate 58.5 mL/min (>60); Glucose 95 mg/dL (80-110); HEMOLYSIS < 15 (0-50); Magnesium 1.8 mg/dL (1.6-2.3); Potassium 4.2 mmol/L (3.4-5.1); Sodium 137 mmol/L (137-145)
== END ==
PROVIDERS: PCP Family Medicine; Referring Provider Family Medicine; Visit Provider Family Medicine
DX: Z51.81 Encounter for therapeutic drug level monitoring (principal); I48.0 Paroxysmal atrial fibrillation; Z79.899 Other long term (current) drug therapy; I10 Essential (primary) hypertension; N18.2 Chronic kidney disease, stage 2 (mild)
CPT/HCPCS: 36415; 80048; 83735

== ENCOUNTER → 2020-11-25 09:35 | Outpatient (CLI) | payer MEDICARE, SELFPAY ==
[2020-11-25 10:13] LABS: COVID19 -Nasal RAPID Negative (Negative)
== END ==
PROVIDERS: PCP Family Medicine; Visit Provider Surgery
DX: Z01.812 Encounter for preprocedural laboratory examination (principal); Z20.822 Contact with and (suspected) exposure to COVID-19
CPT/HCPCS: 87635; C9803

== ENCOUNTER 2020-11-26 07:30 | Day surgery (SDC) | payer MEDICARE, SELFPAY ==
[2020-11-26] VITALS (9 sets, daily range): BP systolic 115–141; BP diastolic 55–90; PULSE 66–85; RESP 14–19; TEMP 36.2–36.6; O2SAT 94–99
--- NOTE | 2020-11-26 | PATH_ITS ---
[facility] Accession Number: [id number] . 01 Material submitted: . colon - SUBCUTANEOUS MASS AT 60 CM . 01 Clinical history: . DX COLONOSCOPY W/POSS BX/POSS POLYPECTOMY . 02 Diagnosis: Colon at 60 cm, Biopsies: Colonic mucosa with no diagnostic abnormality; please see comment. Negative for dysplasia or malignancy. MRV 12/03/2020 1306 Local . 02 Comment: The endoscopic impression of a submucosal mass is noted. No submucosal tissue is present for evaluation. There is no evidence of neoplasm in the sampled material. . 02 Electronically signed: . Eulalio Singh MD, PhD, Pathologist NPI- [id number] . 01 Gross description: . The specimen is received in formalin labeled subcutaneous mass 60 cm and consists of two andujar fragments of soft tissue, measuring 0.4 x 0.3 x 0.2 cm in aggregate. The specimen is entirely submitted in cassette A1. ([id number]) /[facility] 11/27/2020 1645 Local . 02 Pathologist provided ICD-10: D64.9, Z12.11 . 02 CPT . 839418 Performed at: [address] [facility] [address], [place], [place] [id number] MD Fan Wynn MD Phone: [phone] Performed at: 02 [facility] [id number] [address] [place], [place] [id number] MD Jud Grider MD Phone: [phone]
--- NOTE | 2020-11-26 08:10 | PM.PREOP ---
Pre-operative Note COVID-19 COVID-19 status: Negative Result date/Date tested (Pos, Neg/Pending): 11/25/20 Interval Note History & Physical reviewed/Exam performed by Physician: Yes Changes to H&P: No
[2020-11-26] MEDS: SODIUM CHLORIDE 0.9% 1,000 ML 200 ML IV (08:11)
--- NOTE | 2020-11-26 08:27 | P.OP.ENDO_ITS ---
Operative Date/Time/Diagnoses Date of procedure: 11/26/20 Time of procedure: 08:27 Pre-op diagnosis: Anemia, has not had a colonoscopy in 15 years Post-op diagnosis: other (Diverticulosis in the sigmoid colon, 3 cm subcutaneous mass in the descending colon, possible lipoma, possible GIST) Procedure & Clinicians Study performed: Colonoscopy Procedural sedation performed by the endoscopist Same procedure as scheduled: Yes Indications: Anemia, due for colonoscopy Surgeon: Zulema Farias Procedure Notes SCOAP/Timeout: Performed Procedure in detail: The patient was brought to the room and placed in left lateral decubitus position with all bony prominences padded. A time-out was performed and then the patient was given procedural sedation starting with 4 mg of Versed and 100 mcg of fentanyl. Vitals were monitored throughout the procedure and remained stable. Once adequately sedated, the procedure was begun. A rectal exam was performed revealing no abnormalities. The colonoscope was then introduced to the rectum and advanced to the cecum in the usual fashion. The cecum was identified by the appendiceal orifice, the mucosal tri- fold, and the ileocecal valve. The scope was then retracted while rotating side to side and examining each mucosal fold. At 60 cm, likely in the descending colon, a 3 cm subcutaneous umbilicated mass was seen, which appeared like a lipoma, or a GIST. It was biopsied, and tattooed 5 cm proximal and 2 cm distal. Marked diverticulosis is seen in the sigmoid colon with false passages, and some associated chronic thickening without stenosis. At the conclusion of the procedure retroflexion was performed and small grade 1-2 internal hemorrhoids without stigmata of bleeding were seen. The scope was then withdrawn from the rectum the procedure was concluded. The patient tolerated the procedure well and was transferred to the PACU in stable condition. Scope withdrawal time: 11 Sedation minutes: 24 Findings: diverticulosis and other findings (Subcutaneous mass, possible lipoma, possible GIST) Specimen(s): other (Biopsy of mass at 60 cm) Complications: none Impression: The mass in the descending colon, may be a lipoma or a gastrointestinal stromal tumor. Biopsies pending. Marked diverticulosis in the sigmoid colon Post-procedure Recommendations: Other recommendation (Follow-up will depend on biopsy results. Also recommend fiber supplement such as Metamucil. Weight 2 days to restart Eliquis.) Follow up: as needed Disposition: PACU
[2020-11-26] MEDS: MIDAZOLAM 5 MG/5 ML VIAL IV (08:37)
[2020-11-26] MEDS: fentaNYL 250 MCG/5 ML INJ IV (08:37)
--- NOTE | 2020-11-26 09:45 | SUR.PHASEII ---
brought in per Dr. Farias's instructions, call telles in reach, pt's belly soft and tolerating po flds.
--- NOTE | 2020-11-26 10:38 | SUR.PHASEII ---
Provider requested be brought back to OP upon her findings of a mass during her procedure. Findings, possible treatment were discussed. Pt was discharged to main entrance in stable condition
== END 2020-11-26 10:38 | disposition home or self-care (01) ==
PROVIDERS: PCP Family Medicine; Referring Provider Surgery; Visit Provider Surgery
PROC: 0DJD8ZZ Inspection of Lower Intestinal Tract, Via Natural or Artificial Opening Endoscopic (ICD-10-PCS; CPT 45378; principal; 2020-11-26 08:30)
DX: D64.9 Anemia, unspecified (principal); K57.30 Diverticulosis of large intestine without perforation or abscess without bleeding; K64.0 First degree hemorrhoids; E66.01 Morbid (severe) obesity due to excess calories; Z68.41 Body mass index [BMI] 40.0-44.9, adult
CPT/HCPCS: 45381; 45380; 99152; J2250; J3010

== ENCOUNTER → 2020-12-09 12:46 | Outpatient (CLI) | payer MEDICARE, SELFPAY ==
--- NOTE | 2020-12-09 12:47 | DI.CT.S_ITS ---
PROCEDURE: CT CHEST WO CON INDICATIONS: 1 year surviellence TECHNIQUE: Noncontrast 5 mm thick sections acquired from the pulmonary apices to the posterior costophrenic angles. 1 mm lung window, 5 mm thick coronal and sagittal and 7 mm axial MIP reformats were then acquired. For radiation dose reduction, the following was used: automated exposure control, adjustment of mA and/or kV according to patient size. COMPARISON: [facility], CT, CT CHEST WO CON, 12/04/2019, 12:44. FINDINGS: Image quality: Excellent. Lungs and pleura: Stable 7 mm peripheral left upper lobe nodule seen on image 130, series 3. Stable appearance of 6 mm subpleural left lower lobe pulmonary nodule seen on image 181, series 3. Stable 7 mm pleural-based posterior left lower lobe nodule seen on image 206, series 3. Stable 5 mm right middle lobe nodule seen on image 169, series 3. Stable round 5 mm right lower lobe nodule seen on image 177, series 3. Several subcentimeter fissural based nodules are seen on the right. No acute air space opacities. No pleural effusions or pneumothorax. No septal thickening or nodularity. Central and peripheral airways are patent and normal in caliber. Mediastinum: Heart size is normal. Moderate scattered atherosclerotic calcifications of the coronary arteries are noted. No pericardial effusion. No mediastinal adenopathy by size criteria. Thoracic aorta and central pulmonary arteries are normal in size. Esophagus is normal in caliber. No hiatal hernia. Bones and chest wall: No suspicious bony lesions. No vertebral body compression fractures. No axillary or supraclavicular adenopathy by size criteria. Thyroid gland is unremarkable. Abdomen: Cholelithiasis without CT evidence for acute cholecystitis. Remainder of the visualized upper abdominal solid organs and bowel loops appear normal in the absence of contrast. IMPRESSION: 1. Multiple stable bilateral pulmonary nodules as described above measuring between 5 and 7 mm. Continue annual surveillance chest CT in 12 months. 2. Cholelithiasis without CT evidence for acute cholecystitis. 3. Atherosclerosis. Dictated by: Rogerio Abreu M.D. on 12/09/2020 at 17:19 Approved by: Rogerio Abreu M.D. on 12/09/2020 at 17:28
== END ==
PROVIDERS: PCP Family Medicine; Referring Provider Family Medicine; Visit Provider Family Medicine
DX: R91.8 Other nonspecific abnormal finding of lung field (principal); I25.10 Atherosclerotic heart disease of native coronary artery without angina pectoris; K80.20 Calculus of gallbladder without cholecystitis without obstruction
CPT/HCPCS: 71250

== ENCOUNTER → 2021-06-14 16:28 | Outpatient (CLI) | payer MEDICARE, SELFPAY ==
--- NOTE | 2021-06-14 16:31 | DI.RAD.S_ITS ---
PROCEDURE: XR CHEST 2V INDICATIONS: short of breath, cough, no energy TECHNIQUE: 2 views of the chest were acquired. COMPARISON: [facility], CR, XR CHEST 2 VIEWS, 05/03/2021, 16:14. [facility], CR, XR CHEST 1V, 06/07/2018, 16:49. FINDINGS: Surgical changes and devices: Left pacemaker with right atrial and right ventricular leads. Lungs and pleura: No consolidation. Mild streaky retrocardiac airspace opacity. No pleural effusions or pneumothorax. Mediastinum: Mediastinal contours are normal. Heart size is enlarged. Bones and chest wall: No suspicious bony abnormalities. Soft tissues appear unremarkable. IMPRESSION: Cardiomegaly. Mild streaky retrocardiac airspace opacity. Favor atelectasis over pneumonia. Dictated by: Leopoldo Longo M.D. on 06/15/2021 at 8:15 Approved by: Leopoldo Longo M.D. on 06/15/2021 at 8:20
[2021-06-14 18:37] LABS: Add Manual Diff / Slide Review NO; Basophils Absolute Auto 100 /uL (0-100); Basophils Percent Auto 0.7 % (0-2); Eosinophils Absolute Auto 100 /uL (0-450); Eosinophils Percent Auto 1.1 % (2-4); Hematocrit 24.5 % (36-46); Hemoglobin 7.1 g/dL (12.0-16.0); Lymphocytes Absolute Auto 800 /uL (1100-4500); Lymphocytes Percent Auto 7.4 % (25-40); Mean Corpuscular Hemoglobin 19.1 PG (26-34); Mean Corpuscular Volume 65.8 fL (80-100); Monocytes Absolute Auto 1300 /uL (0-900); Monocytes Percent Auto 11.8 % (3-14); Neutrophils Absolute Auto 8700 /uL (1500-7000); Platelet Count 505 X10^3/uL (150-400); Red Blood Cell Count 3.72 X10^6/uL (4.0-5.2); Red Cell Distribution Width 19.8 % (11.6-14.8); White Blood Cell Count 11.1 X10^3/uL (4.5-11.0)
[2021-06-14 19:12] LABS: Anisocytosis 1+; Hypochromasia 1+; Microcytosis 2+; Ovalocytes 1+; Poikilocytosis 3+; Polychromasia 1+; Target Cells 1+
[2021-06-14 19:41] LABS: Erythrocyte Sedimentation Rate 42 MM/HR (0-20)
[2021-06-14 19:47] LABS: HEMOLYSIS < 15 (0-50); Iron 11 ug/dL (37-170)
[2021-06-14 19:50] LABS: Alanine Aminotransferase 10 IU/L (<35); Albumin 3.3 g/dL (3.5-5.0); Albumin Globulin Ratio 1.4 (1.0-2.8); Alkaline Phosphatase 75 U/L (38-126); Aspartate Aminotransferase 16 IU/L (14-36); BUN Creatinine Ratio 19.3 (6-22); Bilirubin Total 0.5 mg/dL (0.2-1.3); Blood Urea Nitrogen 22 mg/dL (7-17); Carbon Dioxide 26 mmol/L (22-32); Chloride 101 mmol/L (98-107); Estimated Glomerular Filt Rate 46.9 mL/min (>60); Globulin 2.4 g/dL (1.7-4.1); Glucose 98 mg/dL (80-110); HEMOLYSIS < 15 (0-50); Potassium 4.8 mmol/L (3.4-5.1); Sodium 136 mmol/L (137-145); Total Protein 5.7 g/dL (6.3-8.2)
[2021-06-14 19:52] LABS: C-Reactive Protein Quant 5.5 mg/dL (<1.0)
[2021-06-14 19:57] LABS: Percent Iron Saturation 3 % (15-50); Total Iron Binding Capacity 340 ug/dL (265-497); Transferrin 257 mg/dL (206-381)
[2021-06-14 20:00] LABS: NT-proBNP (BNP-Adult 18+) 1520 pg/mL (<125)
[2021-06-14 20:21] LABS: TSH w/ Reflex to FT4 3.25 uIU/mL (0.47-4.68)
[2021-06-14 20:23] LABS: Ferritin 11 ng/mL (11-264)
== END ==
PROVIDERS: PCP Family Medicine; Referring Provider Family Medicine; Visit Provider Family Medicine
DX: D64.9 Anemia, unspecified (principal); Z79.899 Other long term (current) drug therapy; Z95.0 Presence of cardiac pacemaker; Z79.01 Long term (current) use of anticoagulants; I10 Essential (primary) hypertension; N18.2 Chronic kidney disease, stage 2 (mild); E03.9 Hypothyroidism, unspecified
CPT/HCPCS: 36415; 71046; 80053; 82728; 83540; 83550; 83880; 84443; 85025; 85651; 86140

== ENCOUNTER 2021-06-15 09:17 | Emergency (ER) | payer MEDICARE, SELFPAY ==
[2021-06-15] VITALS (17 sets, daily range): BP systolic 107–183; BP diastolic 55–93; PULSE 59–69; RESP 16–35; TEMP 37.2; O2SAT 94–98; BMI 41.5
--- NOTE | 2021-06-15 09:26 | ED_ITS ---
HPI - Recheck/Abnormal Lab/Rx General Chief Complaint: Recheck/Abnormal Lab/Rx Stated Complaint: Anemia-complications Time Seen by Provider: 06/15/21 09:18 Source: patient Mode of arrival: Wheelchair History of Present Illness HPI narrative: Patient is a 70-year-old female who was called into the emergency department by her primary doctor for evaluation symptoms. It appears that the patient has had a complicated medical history to include atrial fibrillation and also pauses associated with that. She does have pacemaker in place. She is on anticoagulation. She states that she is also getting shortness of breath with exertion. Has felt very fatigued. No chest pain. As of yesterday she stop taking CellCept which she was on because of bullous pemphigoid. 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 Had an appointment with her primary doctor yesterday. Had labs performed. Was anemic. Had a chest x-ray which showed cardiomegaly and atel ectasis. She has also been coughing. Had elevated BNP. No fevers. No vision changes. No abdominal pain. No urinary symptoms. No change in bowel habits. No change in color of her stools. She does have lower extremity swelling but this is not new. Related Data Home Medications Medication Instructions Recorded Confirmed cyanocobalamin (vitamin B-12) 1,000 mcg PO DAILY #0 08/05/16 02/12/21 1,000 mcg tablet,extended release omeprazole magnesium 20 mg 20 mg PO DAILY 06/07/18 02/12/21 tablet,delayed release (Prilosec OTC) losartan 50 mg tablet 50 mg PO DAILY 12/25/18 02/12/21 potassium gluconate [potassium] PO DAILY 12/25/18 02/12/21 rivaroxaban 20 mg tablet (Xarelto) 20 mg PO DAILY 05/07/19 02/12/21 mycophenolate mofetil 500 mg 1,000 mg PO BID 07/01/20 02/12/21 tablet (CellCept) triamcinolone acetonide 0.1 % 1 applic TOP BID PRN gram 07/01/20 02/12/21 topical cream calcium carb-vit D3-magnesium 250 2 cap PO DAILY 11/04/20 02/12/21 mg-200 unit-125 mg capsule vitamin B complex 1 tab PO DAILY 05/05/21 08/13/21 flecainide 50 mg tablet 100 mg PO Q12H tab 06/14/21 metoprolol succinate 50 mg 50 mg PO BID 06/14/21 tablet,extended release 24 hr Previous Rx's Medication Instructions Recorded albuterol sulfate 90 mcg/actuation 2 - 4 puff INHALATION Q4H PRN #8.5 04/08/20 aerosol inhaler (Ventolin HFA) gram sodium,potassium,mag sulfates 17.5 177 ml PO DAILY #354 ml 11/04/20 gram-3.13 gram-1.6 gram oral soln atorvastatin 10 mg tablet See Rx Instructions .ROUTE 01/20/21 .COMPLEX #90 tab levothyroxine 75 mcg tablet See Rx Instructions .ROUTE 01/22/21 .COMPLEX #90 tab trazodone 50 mg tablet 50 mg PO BEDTIME PRN #90 tab 02/05/21 fluticasone furoate 100 See Rx Instructions .ROUTE 05/11/21 mcg-vilanterol 25 mcg/dose .COMPLEX #180 ea inhalation powder (Breo Ellipta) pramipexole 0.125 mg tablet 0.125 mg PO BEDTIME #90 tab 05/11/21 gabapentin 600 mg tablet See Rx Instructions .ROUTE 06/01/21 .COMPLEX #90 tab Allergies Allergy/AdvReac Type Severity Reaction Status Date / Time No Known Drug Allergies Allergy Verified 06/15/21 09:24 Review of Systems Constitutional Constitutional: Reports fatigue, Denies fever(s), Denies headache(s) and Reports lethargy Eyes Eyes: Reports system reviewed and no additional complaints, except as documented ENT Ears, Nose, Mouth, and Throat: Denies headache(s) and Denies sore throat Cardiovascular Cardiovascular: Reports as per HPI and Reports system reviewed and no additional complaints, except as documented Respiratory Respiratory: Reports as per HPI and Reports system reviewed and no additional complaints, except as documented Gastrointestinal Gastrointestinal: Denies abdominal pain, Denies melena, Denies change in bowel habits, Denies coffee ground emesis, Denies nausea and Denies vomiting Genitourinary Genitourinary: Denies dysuria Musculoskeletal Musculoskeletal: Reports system reviewed and no additional complaints, except as documented Integumentary/Breasts Skin/Breast: Reports system reviewed and no additional complaints, except as documented Neurologic Neurologic: Reports system reviewed and no additional complaints, except as documented and Denies headache(s) Psychiatric Psychiatric: Reports system reviewed and no additional complaints, except as documented Endocrine Endocrine: Reports fatigue Hematologic/Lymphatic On Anticoagulants: No Allergic/Immunologic Allergic/Immunologic: Reports system reviewed and no additional complaints, except as documented Patient History Medical History Anemia Asthma Atrial fibrillation by electrocardiography Bullous pemphigoid (~10/2019) Chickenpox Cholelithiasis Chronic kidney disease (CKD) stage G2/A1, mildly decreased glomerular filtration rate (GFR) between 60-89 mL/min/1.73 square meter and albuminuria creatinine ratio less than 30 mg/g (09/06/17) Chronic obstructive pulmonary disease (10/19/16) Class 1 obesity (09/05/16) Diverticulosis of colon (~12/2020) Eczema Environmental allergies (09/05/16) Fatigue due to sleep pattern disturbance Hepatitis B core antibody positive History of torn meniscus of right knee Hyperlipidemia (01/25/11) Hypertension (01/25/11) Hypothyroidism (~2007) Insomnia due to medical condition Measles Morbid obesity with body mass index (BMI) of 40.0 to 49.9 Osteoarthritis (01/25/11) Pacemaker (~05/2021) Pedal edema Persistent atrial fibrillation Pulmonary nodules/lesions, multiple Recurrent sinusitis (~1999) Seasonal allergies Sigmoid diverticulosis Snoring Surgical History (Updated 06/15/21 @ 08:09 by Tasha Valladares DO) Anesthesia History of foot surgery History of hip replacement (~2010) History of hip replacement (~2012) History of radiofrequency ablation procedure for cardiac arrhythmia (~07/2019) Polyp of nasal sinus Status post hysterectomy with oophorectomy (~1996) Family History Father Heart disease Hypertension Mother Heart disease Stroke Hypertension Diabetes mellitus Dementia Grandfather Cancer Grandmother No problems noted. Grandfather No problems noted. Grandmother No problems noted. Brother Pacemaker Social History marital status: household members: spouse occupational status: previously employed Smoking Status: Former smoker alcohol intake: current substance use type: does not use Smoking Status: Former smoker alcohol intake frequency: a few times a month Substance Use Type: does not use Exam Initial Vital Signs Initial Vital Signs: Vital Signs Temperature 99.0 F 06/15/21 09:20 Pulse Rate 67 06/15/21 09:20 Respiratory Rate 16 06/15/21 09:20 Blood Pressure 107/77 06/15/21 09:20 Pulse Oximetry 95 06/15/21 09:20 Const General: cooperative, comfortable, well developed and well groomed Limitations: mental status not altered HENWI Head: normal to inspection and normocephalic Chest Chest: normal inspection of the chest Breast inspection: normal inspection of the breasts Resp Effort & Inspection: normal respiratory effort Auscultation: clear to auscultation bilaterally Cardio Rate: regular rate Rhythm: regular rhythm GI Inspection: non-distended Palpation: soft and No tender Skin General: no rashes or lesions noted Neuro General: patient alert, patient awake, patient oriented x3 and moves all extremities Extrem General: normal to inspection, capillary refill normal and edema Psych Appearance: grossly normal and well kempt Course Orders Ordered: ED Orders 06/15/21 09:32 EKG-12 Lead Stat 06/15/21 09:35 Complete Blood Count AUTO DIFF Stat Comprehensive Metabolic Panel Stat Lactate (Lactic Acid) Stat Lipase Stat Magnesium Stat NT-proBNP (BNP-Adult 18+) Stat Troponin & CK Cardiac Panel Stat Type and Screen Stat Discontinued Medications Iron Sucrose 100 mg/ Sodium (Chloride) 105 mls @ 420 mls/hr IV NOW ONE Stop: 06/15/21 11:04 Last Infusion: 06/15/21 12:05 Dose: 0 mls/hr Documented by: Admin: 06/15/21 11:31 Dose: 420 mls/hr Documented by: DEREK Vital Signs Vital signs: Vital Signs - 8 hr 06/15/21 10:30 06/15/21 10:31 06/15/21 11:00 Pulse Rate 59 L 59 L 59 L Respiratory Rate 21 26 H 20 Blood Pressure 131/63 Pulse Oximetry 96 96 96 06/15/21 11:01 06/15/21 11:30 06/15/21 11:31 Pulse Rate 59 L 59 L 59 L Respiratory Rate 25 H 30 H 33 H Blood Pressure 144/67 H 143/93 H Pulse Oximetry 96 94 95 06/15/21 12:00 06/15/21 12:01 06/15/21 12:22 Pulse Rate 59 L 60 62 Respiratory Rate 23 24 Blood Pressure 155/71 H 183/74 H Pulse Oximetry 94 94 98 06/15/21 12:30 Pulse Rate 59 L Respiratory Rate 21 Blood Pressure 157/55 H Pulse Oximetry 97 MDM - Recheck/Abnormal Lab/Rx Medical Records Attestation: I reviewed the patient's medical records. Lab Data Attestation: I reviewed the patient's lab results. Result diagrams: 06/15/21 09:35 06/15/21 09:35 Labs: Lab Results 06/15/21 06/15/21 06/15/21 Range/Units 09:35 09:35 09:35 WBC 10.8 (4.5-11.0) X10^3/uL RBC 3.66 L (4.0-5.2) X10^6/uL Hgb 7.1 L (12.0-16.0) g/dL Hct 24.0 L (36-46) % MCV 65.6 L (80-100) fL MCH 19.5 L (26-34) PG MCHC 29.7 L (30-36) % RDW 19.7 H (11.6-14.8) % Plt Count 475 H (150-400) X10^3/uL Neut % (Auto) 80.6 H (50-75) % Lymph % (Auto) 7.4 L (25-40) % [place] % (Auto) 10.3 (3-14) % Eos % (Auto) 1.1 L (2-4) % Baso % (Auto) 0.6 (0-2) % Neut # (Auto) 8700 H (9910-2047) /uL Lymph # (Auto) 800 L (5387-5751) /uL [place] # (Auto) 1100 H (0-900) /uL Eos # (Auto) 100 (0-450) /uL Baso # (Auto) 100 (0-100) /uL RBC Morphology Not Reportable Polychromasia 1+ H Hypochromasia 2+ H Poikilocytosis 1+ H D Microcytosis 3+ H Sodium 136 L (137-145) mmol/L Potassium 4.1 (3.4-5.1) mmol/L Chloride 103 (98-107) mmol/L Carbon Dioxide 24 (22-32) mmol/L BUN 24 H (7-17) mg/dL Creatinine 1.24 H (0.52-1.04) mg/dL Estimated GFR 42.5 L (>60) mL/min BUN/Creatinine Ratio 19.4 (6-22) Glucose 137 H (80-110) mg/dL Lactate 1.4 (0.7-2.1) mmol/L Calcium 8.8 (8.4-10.2) mg/dL Magnesium 1.8 (1.6-2.3) mg/dL Total Bilirubin 0.5 (0.2-1.3) mg/dL AST 16 (14-36) IU/L ALT 11 (<35) IU/L Alkaline Phosphatase 73 (38-126) U/L Total Creatine Kinase 52 (30-135) U/L CK-MB (CK-2) TNP CK-MB (CK-2) Rel Index TNP Troponin I < 0.012 (0.01-0.034) ng/mL NT-Pro-B Natriuret Pep 1320 H (<125) pg/mL Total Protein 6.2 L (6.3-8.2) g/dL Albumin 3.5 (3.5-5.0) g/dL Globulin 2.7 (1.7-4.1) g/dL Albumin/Globulin Ratio 1.3 (1.0-2.8) Lipase 56 (23-300) U/L Blood Type Antibody Screen 06/15/21 Range/Units 09:35 WBC (4.5-11.0) X10^3/uL RBC (4.0-5.2) X10^6/uL Hgb (12.0-16.0) g/dL Hct (36-46) % MCV (80-100) fL MCH (26-34) PG MCHC (30-36) % RDW (11.6-14.8) % Plt Count (150-400) X10^3/uL Neut % (Auto) (50-75) % Lymph % (Auto) (25-40) % Edmonson % (Auto) (3-14) % Eos % (Auto) (2-4) % Baso % (Auto) (0-2) % Neut # (Auto) (4144-0498) /uL Lymph # (Auto) (4602-9400) /uL Edmonson # (Auto) (0-900) /uL Eos # (Auto) (0-450) /uL Baso # (Auto) (0-100) /uL RBC Morphology Polychromasia Hypochromasia Poikilocytosis Microcytosis Sodium (137-145) mmol/L Potassium (3.4-5.1) mmol/L Chloride (98-107) mmol/L Carbon Dioxide (22-32) mmol/L BUN (7-17) mg/dL Creatinine (0.52-1.04) mg/dL Estimated GFR (>60) mL/min BUN/Creatinine Ratio (6-22) Glucose (80-110) mg/dL Lactate (0.7-2.1) mmol/L Calcium (8.4-10.2) mg/dL Magnesium (1.6-2.3) mg/dL Total Bilirubin (0.2-1.3) mg/dL AST (14-36) IU/L ALT (<35) IU/L Alkaline Phosphatase (38-126) U/L Total Creatine Kinase (30-135) U/L CK-MB (CK-2) CK-MB (CK-2) Rel Index Troponin I (0.01-0.034) ng/mL NT-Pro-B Natriuret Pep (<125) pg/mL Total Protein (6.3-8.2) g/dL Albumin (3.5-5.0) g/dL Globulin (1.7-4.1) g/dL Albumin/Globulin Ratio (1.0-2.8) Lipase (23-300) U/L Blood Type O Positive Antibody Screen Negative ECG Data Attestation: I personally reviewed and interpreted this ECG as follows: Interpretation: AV dual paced Rate is 61 MDM Narrative Medical decision making narrative: Symptoms that the patient presents today are not new. They been going on for the past several weeks. She is not clinically in heart failure. However we did discuss potentially using some diuretics to see if this does not help her presenting symptoms. She states that diuretics and especially Lasix has caused her bullous pemphigoid to present itself in the past she would like to avoid this. We did discuss a blood transfusion given her anemia today. Patient would like to hold on this for now. We did discuss the risks and benefits of this treatment. Patient did stop her CellCept yesterday which may help some of her symptoms. We did interrogate her pacemaker and does appear to be functioning properly. I do not necessarily think the patient needs admitted to the hospital. Her symptoms are not new today she does have follow-up with Cardiology 2 days from now. I did discuss the case with her primary doctor. Plan will be to discharge home she was given strict return precautions. She expressed understanding and agreement. Discharge Plan Departure Patient Disposition: Home Clinical Impression: Fatigue, Anemia, Exertional shortness of breath Instructions: Anemia, DI for Fatigue Activity Restrictions/Additional Instructions: I do recommend that you continue all of your medications as directed. Keep your scheduled medical appointments. Contact your primary doctor for a follow-up. Return to the emergency department for any new or worsening symptoms. Prescriptions: No Action cyanocobalamin (vitamin B-12) 1,000 MCG tablet extended release 1,000 mcg PO DAILY Qty: 0 0RF sodium,potassium,mag sulfates 17.5-3.13-1.6 gram recon soln 177 ml PO DAILY Qty: 354 0RF Rx Instructions: Please take medication per [facility] written instructions. atorvastatin 10 mg tablet See Rx Instructions .ROUTE .COMPLEX Qty: 90 1RF Dose Instruction: TAKE ONE TABLET BY MOUTH ONE TIME DAILY AT BEDTIME Rx Instructions: TAKE ONE TABLET BY MOUTH ONE TIME DAILY AT BEDTIME levothyroxine 75 mcg tablet See Rx Instructions .ROUTE .COMPLEX Qty: 90 0RF Dose Instruction: TAKE 1 TABLET BY MOUTH ONCE DAILY FOR 6 DAYS PER WEEK Rx Instructions: TAKE 1 TABLET BY MOUTH ONCE DAILY FOR 6 DAYS PER WEEK pramipexole 0.125 mg tablet 0.125 mg PO BEDTIME Qty: 90 1RF Breo Ellipta 100-25 mcg/dose blister with device See Rx Instructions .ROUTE .COMPLEX Qty: 180 1RF Dose Instruction: INHALE ONE PUFF BY MOUTH ONE TIME DAILY Rx Instructions: INHALE ONE PUFF BY MOUTH ONE TIME DAILY gabapentin 600 mg tablet See Rx Instructions .ROUTE .COMPLEX Qty: 90 1RF Dose Instruction: TAKE 1 TABLET BY MOUTH ONCE DAILY AT BEDTIME Rx Instructions: TAKE 1 TABLET BY MOUTH ONCE DAILY AT BEDTIME flecainide 50 mg tablet 100 mg PO Q12H 0RF metoprolol succinate 50 mg tablet extended release 24 hr 50 mg PO BID 0RF Xarelto 20 mg tablet 20 mg PO DAILY 0RF albuterol sulfate [Ventolin HFA] 90 mcg/actuation HFA aerosol inhaler 2 - 4 puff inhalation Q4H PRN (Reason: Shortness Of Breath) Qty: 8.5 0RF trazodone 50 mg tablet 50 mg PO BEDTIME PRN (Reason: insomnia) Qty: 90 0RF calcium carb-vit D3-magnesium 250-200-125 mg-unit-mg capsule 2 cap PO DAILY 0RF vitamin B complex Tablet 1 tab PO DAILY 0RF omeprazole magnesium [Prilosec OTC] 20 mg Tablet,Delayed Release (Dr/Ec) 20 mg PO DAILY 0RF potassium gluconate PO DAILY 0RF losartan 50 mg tablet 50 mg PO DAILY 0RF mycophenolate mofetil [CellCept] 500 mg tablet 1,000 mg PO BID 0RF triamcinolone acetonide 0.1 % cream 1 applic TOP BID PRN (Reason: Rash) 0RF Referrals: Tasha Valladares DO [Primary Care Provider] -
[2021-06-15 10:02] LABS: Add Manual Diff / Slide Review NO; Basophils Absolute Auto 100 /uL (0-100); Basophils Percent Auto 0.6 % (0-2); Eosinophils Absolute Auto 100 /uL (0-450); Eosinophils Percent Auto 1.1 % (2-4); Hemoglobin 7.1 g/dL (12.0-16.0); Lymphocytes Absolute Auto 800 /uL (1100-4500); Lymphocytes Percent Auto 7.4 % (25-40); Mean Corpuscular HGB Conc 29.7 % (30-36); Mean Corpuscular Hemoglobin 19.5 PG (26-34); Mean Corpuscular Volume 65.6 fL (80-100); Monocytes Absolute Auto 1100 /uL (0-900); Monocytes Percent Auto 10.3 % (3-14); Neutrophils Absolute Auto 8700 /uL (1500-7000); Neutrophils Percent Auto 80.6 % (50-75); Platelet Count 475 X10^3/uL (150-400); Red Blood Cell Count 3.66 X10^6/uL (4.0-5.2); Red Cell Distribution Width 19.7 % (11.6-14.8); White Blood Cell Count 10.8 X10^3/uL (4.5-11.0)
[2021-06-15 10:14] LABS: Lactate (Lactic Acid) 1.4 mmol/L (0.7-2.1)
[2021-06-15 10:16] LABS: Alanine Aminotransferase 11 IU/L (<35); Albumin 3.5 g/dL (3.5-5.0); Albumin Globulin Ratio 1.3 (1.0-2.8); Alkaline Phosphatase 73 U/L (38-126); Aspartate Aminotransferase 16 IU/L (14-36); BUN Creatinine Ratio 19.4 (6-22); Bilirubin Total 0.5 mg/dL (0.2-1.3); Blood Urea Nitrogen 24 mg/dL (7-17); Calcium 8.8 mg/dL (8.4-10.2); Carbon Dioxide 24 mmol/L (22-32); Chloride 103 mmol/L (98-107); Creatine Kinase 52 U/L (30-135); Estimated Glomerular Filt Rate 42.5 mL/min (>60); Globulin 2.7 g/dL (1.7-4.1); Glucose 137 mg/dL (80-110); HEMOLYSIS < 15 (0-50); Lipase 56 U/L (23-300); Magnesium 1.8 mg/dL (1.6-2.3); Potassium 4.1 mmol/L (3.4-5.1); Sodium 136 mmol/L (137-145); Total Protein 6.2 g/dL (6.3-8.2)
[2021-06-15 10:22] LABS: Hypochromasia 2+; Poikilocytosis 1+
[2021-06-15 10:23] LABS: Microcytosis 3+; Polychromasia 1+
[2021-06-15 10:27] LABS: NT-proBNP (BNP-Adult 18+) 1320 pg/mL (<125); Troponin I < 0.012 ng/mL (0.01-0.034)
--- NOTE | 2021-06-15 10:44 | PC.NURSE ---
pt feels short of breath and dizzy with exertion.
[2021-06-15] MEDS: IRON SUCROSE 100 MG in SODIUM CHLORIDE 0.9% 100 ML 420 ML IV (11:31)
== END 2021-06-15 13:15 | disposition home or self-care (01) ==
PROVIDERS: Emergency Provider Emergency Medicine; PCP Family Medicine
DX: D64.9 Anemia, unspecified (principal); I10 Essential (primary) hypertension; Z79.01 Long term (current) use of anticoagulants; Z87.891 Personal history of nicotine dependence; Z95.0 Presence of cardiac pacemaker
CPT/HCPCS: 36415; 80053; 82550; 83605; 83690; 83735; 83880; 84484; 85025; 86850; 86900; 86901; 93005; 93010; 96365; 99284; J1756

== ENCOUNTER → 2021-07-05 14:36 | Outpatient (CLI) | payer MEDICARE, SELFPAY ==
[2021-07-05 20:00] LABS: Occult Blood 1 Negative (Negative); Occult Blood 2 Negative (Negative)
== END ==
PROVIDERS: PCP Family Medicine; Referring Provider Family Medicine; Visit Provider Family Medicine
DX: D64.9 Anemia, unspecified (principal); Z79.01 Long term (current) use of anticoagulants
CPT/HCPCS: 82270

== ENCOUNTER → 2021-07-07 15:49 | Outpatient (CLI) | payer MEDICARE, SELFPAY ==
--- NOTE | 2021-07-07 15:53 | DI.RAD.S_ITS ---
PROCEDURE: XR CHEST 2V INDICATIONS: shortness of breath TECHNIQUE: 2 views of the chest were acquired. COMPARISON: [facility], , XR CHEST 2V, 06/14/2021, 17:55. FINDINGS: Surgical changes and devices: Dual-chamber left-sided pacemaker present. Lungs and pleura: Lungs are clear. No pleural effusions or pneumothorax. Mediastinum: Heart size is enlarged. Mild vascular congestion noted. Blunting the right costophrenic angle. Bones and chest wall: No suspicious bony abnormalities. Soft tissues appear unremarkable. IMPRESSION: Cardiomegaly, pacemaker and mild vascular congestion Tiny right pleural effusion Approved by: Roque Rae M.D. on 07/07/2021 at 16:05
== END ==
PROVIDERS: PCP Family Medicine; Referring Provider Family Medicine; Visit Provider Family Medicine
DX: R06.00 Dyspnea, unspecified (principal); I51.7 Cardiomegaly; I50.9 Heart failure, unspecified; Z95.0 Presence of cardiac pacemaker
CPT/HCPCS: 71046

== ENCOUNTER 2021-07-07 16:39 | Inpatient (IN) | payer MEDICARE, SELFPAY ==
[2021-07-07] VITALS (17 sets, daily range): BP systolic 130–171; BP diastolic 58–87; PULSE 59–70; RESP 18–47; TEMP 36.7; O2SAT 95–98
--- NOTE | 2021-07-07 17:13 | ED_ITS ---
HPI - Recheck/Abnormal Lab/Rx General Chief Complaint: Recheck/Abnormal Lab/Rx Stated Complaint: Sent over by DR Valladares office Time Seen by Provider: 07/07/21 17:13 Source: patient Mode of arrival: Wheelchair History of Present Illness HPI narrative: 70-year-old female former smoker with history of chronic anemia, slowly worsening renal function and relatively recent pacer placement presents with her PCP for evaluation of worsening SOB. She has become sufficiently short of breath that she cannot make it 6-10 feet across the room without becoming profoundly winded and requiring significant assistance from her . She has been increasingly short of breath when lying flat as well. She denies any chest pain. She has had a few episodes of near-syncope with exertion. She has had no nausea, vomiting or diarrhea. She had recently been given a 5 day break from her Xarelto in order to do stool studies to further evaluate her anemia. She has had no fever or chills. Related Data Home Medications Medication Instructions Recorded Confirmed cyanocobalamin (vitamin B-12) 1,000 mcg PO DAILY #0 08/05/16 07/07/21 1,000 mcg tablet,extended release omeprazole magnesium 20 mg 20 mg PO DAILY 06/07/18 07/07/21 tablet,delayed release (Prilosec OTC) losartan 50 mg tablet 50 mg PO DAILY 12/25/18 07/07/21 rivaroxaban 20 mg tablet (Xarelto) 20 mg PO DAILY 05/07/19 07/07/21 triamcinolone acetonide 0.1 % 1 applic TOP BID PRN gram 07/01/20 07/07/21 topical cream calcium carb-vit D3-magnesium 250 2 cap PO DAILY 11/04/20 07/07/21 mg-200 unit-125 mg capsule vitamin B complex 1 tab PO DAILY 11/04/20 07/07/21 flecainide 50 mg tablet 100 mg PO Q12H tab 06/14/21 07/07/21 doxepin 10 mg capsule 10 mg PO BEDTIME cap 07/07/21 07/07/21 metoprolol succinate 50 mg 25 mg PO BID tab 07/07/21 07/07/21 tablet,extended release 24 hr potassium chloride 10 mEq 10 meq PO DAILY tab 07/07/21 07/07/21 tablet,extended release(part/cryst) Previous Rx's Medication Instructions Recorded albuterol sulfate 90 mcg/actuation 2 - 4 puff INHALATION Q4H PRN #8.5 04/08/20 aerosol inhaler (Ventolin HFA) gram levothyroxine 75 mcg tablet See Rx Instructions .ROUTE 01/22/21 .COMPLEX #90 tab trazodone 50 mg tablet 50 mg PO BEDTIME PRN #90 tab 02/05/21 fluticasone furoate 100 See Rx Instructions .ROUTE 05/11/21 mcg-vilanterol 25 mcg/dose .COMPLEX #180 ea inhalation powder (Breo Ellipta) pramipexole 0.125 mg tablet 0.125 mg PO BEDTIME #90 tab 05/11/21 gabapentin 600 mg tablet See Rx Instructions .ROUTE 06/01/21 .COMPLEX #90 tab atorvastatin 10 mg tablet See Rx Instructions .ROUTE 06/16/21 .COMPLEX #90 tab ferrous sulfate 325 mg (65 mg 325 mg PO BID #60 tab 06/24/21 iron) tablet Allergies Allergy/AdvReac Type Severity Reaction Status Date / Time No Known Drug Allergies Allergy Verified 07/07/21 12:25 Review of Systems Review of Systems Narrative: GENERAL: Denies chills, fatigue, malaise, fever, sweats. HEENT: Denies sinus pain, ear pain, sore throat, difficulty swallowing, dizziness. RESPIRATORY: See HPI CARDIOVASCULAR: Denies chest pain, palpitations, orthopnea, edema, GASTROINTESTINAL: Denies nausea, vomiting, abdominal pain, diarrhea, constipation, melena. : Denies dysuria, frequency, incontinence, hematuria, urinary retention. MUSCULOSKELETAL: denies weakness, joint pain, or bony pain SKIN: Denies rash, skin lesions, or other NEUROLOGIC: Denies weakness, headache, numbness, change in speech, confusion, seizures, incoordination. PSYCHIATRIC: No concerning psychosocial issues. 12 point review of systems is negative except for those stated above Patient History Medical History Anemia Asthma Atrial fibrillation by electrocardiography Bullous pemphigoid (~10/2019) Chickenpox Cholelithiasis Chronic kidney disease (CKD) stage G2/A1, mildly decreased glomerular filtration rate (GFR) between 60-89 mL/min/1.73 square meter and albuminuria creatinine ratio less than 30 mg/g (09/06/17) Chronic obstructive pulmonary disease (10/19/16) Class 1 obesity (09/05/16) Diverticulosis of colon (~12/2020) Eczema Environmental allergies (09/05/16) Fatigue due to sleep pattern disturbance Hepatitis B core antibody positive History of torn meniscus of right knee Hyperlipidemia (01/25/11) Hypertension (01/25/11) Hypothyroidism (~2007) Insomnia due to medical condition Measles Morbid obesity with body mass index (BMI) of 40.0 to 49.9 Osteoarthritis (01/25/11) Pacemaker (~05/2021) Pedal edema Persistent atrial fibrillation Pulmonary nodules/lesions, multiple Recurrent sinusitis (~1999) Seasonal allergies Sigmoid diverticulosis Snoring Surgical History Anesthesia History of foot surgery History of hip replacement (~2010) History of hip replacement (~2012) History of radiofrequency ablation procedure for cardiac arrhythmia (~07/2019) Polyp of nasal sinus Status post hysterectomy with oophorectomy (~1996) Family History Father Heart disease Hypertension Mother Heart disease Stroke Hypertension Diabetes mellitus Dementia Grandfather Cancer Grandmother No problems noted. Grandfather No problems noted. Grandmother No problems noted. Brother Pacemaker Social History marital status: household members: spouse occupational status: previously employed Smoking Status: Former smoker alcohol intake: current substance use type: does not use Smoking Status: Former smoker alcohol intake frequency: a few times a month Substance Use Type: does not use Exam Narrative Exam Narrative: GENERAL: [70 year old patient appears stated age. Well-developed patient, in mild distress. HEAD: Atraumatic. Normocephalic. EYES: Pupils equal round and reactive. Extraocular motions intact. No scleral icterus. No injection or drainage. ENT: Nose without bleeding, purulent drainage. Throat without erythema, t onsillar hypertrophy or exudate. Airway patent. NECK: Trachea midline. Non tender CARDIOVASCULAR: Regular rate and rhythm without murmurs, gallops, or rubs. RESPIRATORY: Increased work of breathing with minimal exertion. faint crackles in B/L bases GASTROINTESTINAL: Abdomen soft, non-tender, nondistended. EXTREMITIES: No edema or joint tenderness. BACK: Nontender without deformity or crepitance. No flank tenderness. NEURO: AOx3. SKIN: No rash or erythema of visible areas Initial Vital Signs Initial Vital Signs: Vital Signs Temperature 98.0 F 07/07/21 16:52 Pulse Rate 59 L 07/07/21 16:52 Respiratory Rate 22 07/07/21 16:52 Blood Pressure 130/58 L 07/07/21 16:52 Pulse Oximetry 98 07/07/21 16:52 Course Orders Ordered: ED Orders 07/07/21 17:31 CT angio chest PE protocol Stat 07/07/21 19:24 COVID19 - ADMIT ([employer] swab/PCR) Stat 07/07/21 19:26 Troponin & CK Cardiac Panel Stat 07/07/21 19:44 RT Consult Eval and Treat Now 07/07/21 19:46 Education, smoking cessation ONGOING 07/07/21 19:50 Magnesium Urgent Thyroid Stimulating Hormone Urgent 07/07/21 19:55 Phosphorous Urgent 07/07/21 20:05 Troponin & CK Cardiac Panel Stat 07/08/21 05:00 Complete Blood Count AUTO DIFF DAILY Comprehensive Metabolic Panel DAILY Prothrombin Time INR Routine Troponin I Routine 07/09/21 05:00 Complete Blood Count AUTO DIFF DAILY Comprehensive Metabolic Panel DAILY 07/10/21 05:00 Complete Blood Count AUTO DIFF DAILY Comprehensive Metabolic Panel DAILY Acetaminophen (Acetaminophen 325 Mg Tablet) 650 mg PO Q6HR PRN PRN Reason: Fever/Mild Pain (1-3) Albuterol/Ipratropium (Albuterol/Ipratropium 3 Ml Ampul) 3 ml INH [id number] [facility] Apixaban (Apixaban 5 Mg Tablet) 5 mg PO BID BINH Furosemide (Furosemide 20 Mg/2 Ml Vial) 20 mg IV BID [facility] Lactated Ringer's (Lactated Ringers) 1,000 mls @ 42 mls/hr IV CONT BINH Naloxone HCl (Naloxone 0.4 Mg/Ml Vial) 0.2 mg IV Q2MIN PRN PRN Reason: Opiate Reversal Ondansetron HCl (Ondansetron 4 Mg/2 Ml Inj) 4 mg IV Q8HR PRN PRN Reason: Nausea And Vomiting Prednisone (Prednisone 20 Mg Tablet) 40 mg PO DAILY BINH Stop: 07/11/21 08:59 Sennosides (Sennosides 8.6 Mg Tablet) 17.2 mg PO BEDTIME BINH Discontinued Medications Apixaban (Apixaban 5 Mg Tablet) 5 mg PO NOW ONE Stop: 07/07/21 19:31 Last Admin: 07/07/21 19:34 Dose: 5 mg Documented by: MICHELLE Furosemide (Furosemide 40 Mg/4 Ml Vial) 40 mg IV NOW ONE Stop: 07/07/21 20:08 Sodium Chloride (Normal Saline 0.9%) 500 mls @ 1,000 mls/hr IV BOLUS ONE Stop: 07/07/21 18:00 Last Infusion: 07/07/21 19:39 Dose: 0 mls/hr Documented by: Admin: 07/07/21 18:51 Dose: 1,000 mls/hr Documented by: MICHELLE Consultations Consultation #1: Discussed anticoagulation with on-call Hematology. She had been short of breath prior to her break from Xarelto which suggest an increased likelihood of a breakthrough while on anticoagulation. Dr. Hill recommend switching from Xarelto to Eliquis but against the loading dose that would often be used when initiating treatment. Vital Signs Vital signs: Vital Signs - 8 hr 07/07/21 16:52 07/07/21 19:40 Temperature 98.0 F Pulse Rate 59 L 63 Respiratory Rate 22 Blood Pressure 130/58 L 161/78 H Pulse Oximetry 98 95 MDM - Recheck/Abnormal Lab/Rx Imaging Data CT scan - chest: Radiologist's Impression: [address] [address] [address] Scan Report Signed Patient: Mishel Reeder MR#: [id number] : 1950 Acct:[id number] Age/Sex: 70 / F Date of Service: 07/07/21 Loc: ED Accession Number: [id number] ?? Procedure: CT angio chest PE protocol Ordering Provider: Lj Bean D.O. PROCEDURE:? CT ANGIO CHEST PE PROTOCOL ? INDICATIONS:? SOB, critical Dimer, recent pacer, post op complication? ? TECHNIQUE:? After the administration of intravenous contrast, 2 mm thick sections acquired from the pulmonary apices to the posterior costophrenic angles.? For radiation dose reduction, the following was used:? automated exposure control, adjustment of mA and/or kV according to patient size.? ? COMPARISON:? None. ? FINDINGS:? Image quality:? Excellent.? ? Pulmonary arteries:? Bilateral segmental and subsegmental pulmonary emboli no patria.? No evidence of right heart strain however.? There is a dual-chamber left-sided pacemaker. ? Lungs and pleura:? Moderate right pleural effusion with compressive atelectasis.? A focal pulmonary emphysema noted. ? Mediastinum:? Heart size is normal, without pericardial effusion.? No mediastinal or hilar adenopathy.? Thoracic aorta is normal in caliber and enhancement.? Esophagus is normal in caliber, without hiatal hernia.? ? Bones and chest wall:? No suspicious bony lesions.? Ribs and thoracic spine appear intact throughout.? Thyroid gland unremarkable.? No axillary or supraclavicular dread opathy.? ? Abdomen:? Cholelithiasis partially imaged. ? IMPRESSION:? ? Bilateral segmental and subsegmental pulmonary emboli without evidence of right heart strain. ? Moderate right pleural effusion with compressive atelectasis. ? Left-sided dual-chamber pacemaker without evidence of complication ? Note:? Critical results were discussed with Dr. Bean at 05:31 PM [place] time on 07/07/21 ? Approved by: Roque Rae M.D. on 07/07/2021 at 17:32? [facility] Narrative Medical decision making narrative: Patient with gradually worsening shortness of breath, renal function and elevated BNP is found to have bilateral pulmonary emboli in the absence of any radiographic findings suggestive of right heart strain. She is not hypoxemic at rest, she is not a candidate for mechanical retrieval. She does present a complex an area go with alterations in her anticoagulation, need for diuresis in the setting of worsening kidney function in the setting of persistent and symptomatic anemia. Discharge Plan Departure Patient Disposition: Admitted as Observation Clinical Impression: Pulmonary embolism, Pleural effusion, Acute CHF
--- NOTE | 2021-07-07 17:31 | DI.CT.S_ITS ---
PROCEDURE: CT ANGIO CHEST PE PROTOCOL INDICATIONS: SOB, critical Dimer, recent pacer, post op complication? TECHNIQUE: After the administration of intravenous contrast, 2 mm thick sections acquired from the pulmonary apices to the posterior costophrenic angles. For radiation dose reduction, the following was used: automated exposure control, adjustment of mA and/or kV according to patient size. COMPARISON: None. FINDINGS: Image quality: Excellent. Pulmonary arteries: Bilateral segmental and subsegmental pulmonary emboli noted. No evidence of right heart strain however. There is a dual-chamber left-sided pacemaker. Lungs and pleura: Moderate right pleural effusion with compressive atelectasis. A focal pulmonary emphysema noted. Mediastinum: Heart size is normal, without pericardial effusion. No mediastinal or hilar adenopathy. Thoracic aorta is normal in caliber and enhancement. Esophagus is normal in caliber, without hiatal hernia. Bones and chest wall: No suspicious bony lesions. Ribs and thoracic spine appear intact throughout. Thyroid gland unremarkable. No axillary or supraclavicular adenopathy. Abdomen: Cholelithiasis partially imaged. IMPRESSION: Bilateral segmental and subsegmental pulmonary emboli without evidence of right heart strain. Moderate right pleural effusion with compressive atelectasis. Left-sided dual-chamber pacemaker without evidence of complication Note: Critical results were discussed with Dr. Bean at 05:31 PM [place] time on 07/07/21 Approved by: Roque Rae M.D. on 07/07/2021 at 17:32
[2021-07-07] MEDS: SODIUM CHLORIDE 0.9% 500 ML 1000 ML IV (18:51)
[2021-07-07] MEDS: APIXABAN 5 MG TABLET PO (19:34)
[2021-07-07] MEDS: LACTATED RINGERS 1,000 ML 42 ML IV (21:02)
[2021-07-07] MEDS: FUROSEMIDE 20 MG/2 ML VIAL IV (21:24)
[2021-07-07] MEDS: SENNOSIDES 8.6 MG TABLET 17.2 MG PO (21:24)
[2021-07-07 21:28] LABS: COVID19 - ADMIT (NP swab/PCR) Negative (Negative)
[2021-07-07 22:24] LABS: Magnesium 1.9 mg/dL (1.6-2.3)
[2021-07-07 22:25] LABS: Creatine Kinase 40 U/L (30-135); Phosphorous 4.1 mg/dL (2.8-4.1)
[2021-07-07 22:37] LABS: Troponin I 0.016 ng/mL (0.01-0.034)
[2021-07-07 23:12] LABS: Thyroid Stimulating Hormone 2.64 uIU/mL (0.47-4.68)
[2021-07-08] VITALS (19 sets, daily range): BP systolic 103–148; BP diastolic 46–82; PULSE 61–72; RESP 16–22; TEMP 36.6–36.8; O2SAT 93–98; BMI 43.1
--- NOTE | 2021-07-08 00:20 | P.HP_ITS ---
History of Present Illness History of Present Illness Date Patient Seen: 07/07/21 Time Patient Seen: 20:00 Chief complaint: Sent over by DR Urias office Narrative: Mishel Reeder is a 70-year-old female former smoker with history of chronic anemia, persistent atrial fibrillation on Xarelto-post ablation with recent pacemaker placement 05/03/2021, COPD, CKD stage G2/A1, hyperlipidemia, hypothyroidism, peripheral neuropathy, morbid obesity, autoimmune bollous pemp higoid, YONI/Cpap presented to the ED with her PCP for evaluation of worsening SOB.? She has become sufficiently short of breath, unable to 6-10 feet across the room without becoming profoundly winded, 02 sat in the low 80's% and requiring significant assistance from her .? Patient desats to low 80% while lying in bed and speaking. Desaturation continued to low 80's, even after applying 2L/NC. Patient reports a few episodes of near-syncope with exertion, worsening global weakness, peripheral edema, and chronically worsening SOB over the past year.? These symptoms were present prior to pacemaker placement, and have only continued to worsen since placement. Patient reports falling to the slate floor due to a syncopal episode around [place], her husbands notes that she had LOC, developing a bump on the head. Following the fall, he reports two episodes of confusion, garbled speech, and extremity weakness. The patient is unable to recall these events. Patient denies weakness, changes in vision, changes in speech, difficulty swallowing, chest pain, abdominal pain, nausea, vomiting, diarrhea, chills, fever, urinary symptoms, vaginal symptoms hematemesis, hematuria, melena, no recent illness or trauma. Patient does note chronic stable bilateral peripheral edema. She had recently been given a 5 day break from her Xarelto in order to do stool studies to further evaluate her ane nancy.? PCP Dr. Valladares, Cemetery Laborer Dr. Devyn Blanco, Infectious Disease at [facility]. Upon admit patient's vitals temp 98?, BP 130/58, HR 59, R 22, O2 saturation 80% on room air. Patient failed multiple ambulation trials, including desaturation at rest. Patient's hgb 8.5, hct 30.2, MCV 68, BUN 47, creatinine 1.6, GFR 31.7, dimer 1528, Lac D 839, BNP 5820. Urinalysis is positive for nitrates, culture pending. CTA demonstrated bilateral segmental and subsegmental pulmonary embolisms without evidence of right heart strain, moderate right pleural effusion with compressive atelectasis, left dual chamber pacemaker without complication and place. Dr. Hill hematology was consulted in ED. patient admitted for acute respiratory failure secondary to bilateral pulmonary embolisms, right pleural effusion, in addition to exacerbation CHF/COPD, UTI resulting in acute on chronic kidney injury. Patient History Medical History Anemia Asthma Atrial fibrillation by electrocardiography Bullous pemphigoid (~10/2019) Chickenpox Cholelithiasis Chronic kidney disease (CKD) stage G2/A1, mildly decreased glomerular filtration rate (GFR) between 60-89 mL/min/1.73 square meter and albuminuria creatinine ratio less than 30 mg/g (09/06/17) Chronic obstructive pulmonary disease (10/19/16) Class 1 obesity (09/05/16) Diverticulosis of colon (~12/2020) Eczema Environmental allergies (09/05/16) Fatigue due to sleep pattern disturbance Hepatitis B core antibody positive History of torn meniscus of right knee Hyperlipidemia (01/25/11) Hypertension (01/25/11) Hypothyroidism (~2007) Insomnia due to medical condition Measles Morbid obesity with body mass index (BMI) of 40.0 to 49.9 Osteoarthritis (01/25/11) Pacemaker (~05/2021) Pedal edema Persistent atrial fibrillation Pulmonary nodules/lesions, multiple Recurrent sinusitis (~1999) Seasonal allergies Sigmoid diverticulosis Snoring Surgical History Anesthesia History of foot surgery History of hip replacement (~2010) History of hip replacement (~2012) History of radiofrequency ablation procedure for cardiac arrhythmia (~07/2019) Polyp of nasal sinus Status post hysterectomy with oophorectomy (~1996) Family & Social History Family History Father Heart disease Hypertension Mother Heart disease Stroke Hypertension Diabetes mellitus Dementia Grandfather Cancer Grandmother No problems noted. Grandfather No problems noted. Grandmother No problems noted. Brother Pacemaker Social History: household members spouse, pt uses a walker to get around at home. Tobacco & Substance use: Smoking Status Former smoker alcohol intake current alcohol intake frequency a few times a month Substance Use Type does not use Meds Home Medications and Allergies Home Medications Medication Instructions Recorded Confirmed Type cyanocobalamin (vitamin B-12) 1,000 mcg PO DAILY #0 08/05/16 07/08/21 History 1,000 mcg tablet,extended release omeprazole magnesium 20 mg 20 mg PO DAILY 06/07/18 07/08/21 History tablet,delayed release (Prilosec OTC) losartan 50 mg tablet 50 mg PO DAILY 12/25/18 07/08/21 History albuterol sulfate 90 mcg/actuation 2 - 4 puff INHALATION Q4H PRN #8.5 04/08/20 07/08/21 Rx aerosol inhaler (Ventolin HFA) gram calcium carb-vit D3-magnesium 250 2 cap PO DAILY 11/04/20 07/08/21 History mg-200 unit-125 mg capsule fluticasone furoate 100 See Rx Instructions .ROUTE 05/11/21 07/08/21 Rx mcg-vilanterol 25 mcg/dose .COMPLEX #180 ea inhalation powder (Breo Ellipta) pramipexole 0.125 mg tablet 0.125 mg PO BEDTIME #90 tab 05/11/21 07/08/21 Rx flecainide 50 mg tablet 100 mg PO BID tab 06/14/21 07/08/21 History ferrous sulfate 325 mg (65 mg 325 mg PO BID #60 tab 06/24/21 07/08/21 Rx iron) tablet doxepin 10 mg capsule 10 mg PO BEDTIME cap 07/07/21 07/08/21 History metoprolol succinate 50 mg 100 mg PO BID tab 07/07/21 07/08/21 History tablet,extended release 24 hr potassium chloride 10 mEq 10 meq PO BEDTIME tab 07/07/21 07/08/21 History tablet,extended release(part/cryst) atorvastatin 10 mg tablet 10 mg PO BEDTIME 07/08/21 07/08/21 History gabapentin 600 mg tablet 600 mg PO BEDTIME 07/08/21 07/08/21 History levothyroxine 75 mcg tablet 75 mcg PO DAILY 07/08/21 07/08/21 History niacinamide 500 mg tablet,extended 500 mg PO BID 07/08/21 07/08/21 History release Allergies Allergy/AdvReac Type Severity Reaction Status Date / Time No Known Drug Allergies Allergy Verified 07/07/21 12:25 Review of Systems Review of Systems Narrative: All 12 point systems reviewed with the patient and are negative except otherwise documented. Exam Vital Signs (past 8 hours): - 07/07/21 16:52 07/07/21 19:13 07/07/21 19:30 Temperature 98.0 F Pulse Rate 59 L 65 Respiratory Rate 22 Blood Pressure 130/58 L 171/81 H Pulse Oximetry 98 98 07/07/21 19:31 07/07/21 19:40 07/07/21 20:00 Temperature Pulse Rate 62 63 60 Respiratory Rate Blood Pressure 161/78 H 161/78 H Pulse Oximetry 98 95 96 07/07/21 20:01 07/07/21 20:30 07/07/21 21:00 Temperature Pulse Rate 60 62 60 Respiratory Rate Blood Pressure 144/62 H Pulse Oximetry 96 97 95 07/07/21 21:30 07/07/21 22:00 07/07/21 22:07 Temperature Pulse Rate 59 L 60 70 Respiratory Rate Blood Pressure 141/87 H Pulse Oximetry 95 96 96 07/07/21 22:30 07/07/21 22:31 07/07/21 23:00 Temperature Pulse Rate 61 59 L 59 L Respiratory Rate 24 21 29 H Blood Pressure 167/83 H Pulse Oximetry 97 97 97 07/07/21 23:16 07/07/21 23:30 Temperature Pulse Rate 63 59 L Respiratory Rate 47 H 18 Blood Pressure 139/77 151/72 H Pulse Oximetry 98 97 Oxygen Delivery Method Room Air Narrative Exam Narrative: General: Patient is a well-developed, well-nourished, delightful obese female in no distress, but increased work of breathing at this time. HEENT: Normocephalic, atraumatic, extraocular muscles intact, oral pharynx is clear and mucous membranes are dry. Neck is supple and symmetric, trachea is midline, no adenopathy, no thyroid enlargement, nontender, no masses palpated. Negative for JVD Chest: Normal AP diameter and contour, no nasal flaring, retractions. Positive shallow, tachypneic labored, work of breathing. Lungs: Auscultation of all lung wu, mild bilateral crackles in bases. Cardio: S1 & S2 with regular rate and rhythm without murmur, rubs, or gallops, no carotid bruit, no cardiac pulsations present. Abdomen: Soft nontender, negative for organomegaly, or masses. Bowel sounds are present in all 4 quadrants without guarding or rebound, no CVA tenderness. Musculoskeletal: Muscle strength and tone are equal within normal limits, no deformity, crepitus, effusions, cyanosis, or clubbing. Bilateral +3 non-pitting edema. Full range of motion intact radial and pedal pulses are normal. Skin: Warm dry and intact without rashes, ulcerations or petechiae. Neuro: Alert and orientated x3, sensation to touch intact, no gross deficits noted of cranial nerves. Psych: Patient has a well-kept appearance, appropriate affect, mental status attitude thought context and judgment are appropriate for age. Objective Labs Labs: Laboratory Results - last 24 hr 07/07/21 07/07/21 07/07/21 19:24 22:05 22:05 Phosphorus Magnesium 1.9 Total Creatine Kinase 40 CK-MB (CK-2) TNP CK-MB (CK-2) Rel Index TNP Troponin I 0.016 TSH SARS-CoV-2 (PCR) Negative 07/07/21 07/07/21 22:05 22:05 Phosphorus 4.1 Magnesium Total Creatine Kinase CK-MB (CK-2) CK-MB (CK-2) Rel Index Troponin I TSH 2.64 SARS-CoV-2 (PCR) Assessment & Plan Assessment & Plan narrative: Mishel Reeder is a 70-year-old female former smoker with history of chronic anemia, persistent atrial fibrillation on Xarelto-post ablation with recent pacemaker placement 05/03/2021, COPD, CKD stage G2/A1, hyperlipidemia, hypothyroidism, peripheral neuropathy, morbid obesity, autoimmune bollous pemphigoid, YONI/Cpap presented to the ED with her PCP for evaluation of worsening SOB.? patient admitted for acute respiratory failure secondary to bilateral pulmonary embolisms, right pleural effusion, in addition to exacerbation CHF/COPD, UTI resulting in acute on chronic kidney injury. Patient requires hospitalization for the resolution of acute respiratory failure, transitioning patient from Xarelto to Eliquis, respiratory support/monitoring for PE's, and pleural effusion, mild diuresis for CHF, gentle hydration for NGOC, treatment of UTI, and monitoring of anemia/ bleeding. 1.Acute respiratory failure with Hypoxia, secondary to bilateral pulmonary embolisms, right pleural effusion,acute, in the setting of COPD exacerbation/YONI Cpap, acute on chronic, present on admission -RR 22, O2 saturation 80% on room air. Patient failed multiple ambulation trials, including desaturation at rest. dimer 1528, Lac D 839 -CTA demonstrated bilateral segmental and subsegmental pulmonary embolisms without evidence of right heart strain, moderate right pleural effusion with compressive atelectasis, left dual chamber pacemaker without complication and place. -95% on 2L/NC- patient continues to desat to 80's at rest, while talking on 02. -continue albuterol, potassium -Resp consult: DuoNeb q.4 hours, prednisone 40 mg x 3 days -Eliquis 5 mg b.i.d. -Repeat Trop 2. Possible CHF exacerbation, acute, present on admission -BNP 5820 -Echo 02/28/2019 Dr. Nathan left EF 60+/-5%-moderate mitral valve regurgitation, tricuspid regurgitation. -Will consider repeat Echo, f/u with Cardiology Dr. Resendiz -2000 cc fluid restriction, low-sodium, mild diuresis- Lasix 20 mg IV b.i.d., avoid NSAIDs and morphine. 3. UTI, resulting in Acute kidney injury on chronic kidney injury, Stage G2/A1, acute on chronic, present on admission -Urinalysis is positive for nitrates, culture pending. Patient started on broad-spectrum Rocephin 1 g Q 24 hours. - BUN 47, creatinine 1.6, GFR 31.7 (last BUN 24, CHIP BIN OPERATOR 1.24, GFR 42.5 (GFR) between 60-89 mL- 06/2021) -Gentle hydration for renal function NS@42cc/hr -Hold Losarten 4. Anemia, Iron deficiency, Chronic, present on admssion- improved -hgb 8.5, hct 30.2, MCV 68 Managed by Hematology & PCP -continue ferrous sulfate -She has a significant anemia with her last hgb 7.1./Hgb 24, iron deficiency. She had a negative stool test for blood. -She has had one iron infusion and is taking oral iron with vitamin C as well. 5. Fall/syncopal episode, head injury, reported neurological deficit, recurrent/History of (Observed), present on admission-stable -recommend Head CT to evaluate for TIA/Stroke once NGOC resolved, and/or Outpt follow up neurology referral. -Pt demonstrated no s/s of TIA/Stroke on admission. 6. Persistent atrial fibrillation post ablation, pace maker placement (05/2021), on chronic anticoagulation, chronic, present on admission-stable -Xarelto Failure change pt to Eliquis 5 mg b.i.d. -Dr. Hill hematology consult. -continue flecainide, metoprolol -Pt on Telemed 7. Essential hypertension, chronic, present on admission-stable -continue metoprolol (PCP decreased to 25mg BID 07/07/2021), Hold losarten due to NGOC -Admitting B/P 130/58 8. Hyperlipidemia, chronic, present on admission -Continue Lipitor, niacin 9. Peripheral neuropathy, chronic, present on admission -Continue gabapentin 10. Depression, chronic, present on admission -continue Doxepin 11. Autoimmune Bullous pemphigoid, chronic, present on admission -continue Niacinamide 12. Restless leg syndrome, chronic, present on admission -Continue pramipexole 13. Hypothyroidism, acquired, chronic, present on admission -continue levothyroxine 14. GERD, chronic, present on admission -continue omeprazole 15. Insomnia, chronic, Present on admission -continue Trazadone 16. Obesity as evidence by BMI of 43.1, acute on chronic, present on admission -consult for dietary placed Code status:Full Surrogate decision maker: Spouse Keshav Reeder COVID PCR:Negative COVID vaccination: [employer]) x2, booster, 2020 DVT/VTE prophylaxis: SCDs and Eliquis Disposition: Patient's estimated length of stay greater than 2 midnights. I have utilized all available immediate resources to obtain, update, or review the patient's current medications. I confirmed that the patient's advanced care plan is present, Code status is documented and/or surrogate decision maker is listed in the patient's medical record. Time Spent With Patient Critical Care time: I spent a total of [] minutes of critical care time on this patient's care today; this time is exclusive of procedural time. Scores GCS Felix coma scale eye opening: Spontaneous [place] coma scale verbal response: Orientated Felix coma scale motor response: Obey commands [place] coma scale total score: 15
[2021-07-08 07:09] LABS: Add Manual Diff / Slide Review NO; Basophils Absolute Auto 100 /uL (0-100); Basophils Percent Auto 1.4 % (0-2); Eosinophils Absolute Auto 200 /uL (0-450); Eosinophils Percent Auto 3.1 % (2-4); Hematocrit 28.5 % (36-46); Hemoglobin 8.1 g/dL (12.0-16.0); Lymphocytes Absolute Auto 900 /uL (1100-4500); Lymphocytes Percent Auto 14.6 % (25-40); Mean Corpuscular HGB Conc 28.3 % (30-36); Mean Corpuscular Hemoglobin 19.2 PG (26-34); Mean Corpuscular Volume 67.8 fL (80-100); Monocytes Absolute Auto 600 /uL (0-900); Monocytes Percent Auto 10.2 % (3-14); Neutrophils Absolute Auto 4500 /uL (1500-7000); Neutrophils Percent Auto 70.7 % (50-75); Platelet Count 305 X10^3/uL (150-400); Red Blood Cell Count 4.21 X10^6/uL (4.0-5.2); Red Cell Distribution Width 22.5 % (11.6-14.8); White Blood Cell Count 6.3 X10^3/uL (4.5-11.0)
[2021-07-08 07:23] LABS: INR 2.4 (0.9-1.3); Prothrombin Time 27.6 SECONDS (10.1-12.7)
[2021-07-08] MEDS: BUDESONIDE 0.5 MG/2 ML NEB INH ×2 (07:27→20:47)
[2021-07-08] MEDS: ALBUTEROL/IPRATROPIUM 3 ML AMPUL INH ×3 (07:27→20:46)
[2021-07-08 07:28] LABS: Alanine Aminotransferase 11 IU/L (<35); Albumin 3.3 g/dL (3.5-5.0); Albumin Globulin Ratio 1.2 (1.0-2.8); Alkaline Phosphatase 59 U/L (38-126); Aspartate Aminotransferase 18 IU/L (14-36); BUN Creatinine Ratio 27.3 (6-22); Bilirubin Total 0.7 mg/dL (0.2-1.3); Blood Urea Nitrogen 39 mg/dL (7-17); Calcium 9.3 mg/dL (8.4-10.2); Carbon Dioxide 26 mmol/L (22-32); Chloride 106 mmol/L (98-107); Estimated Glomerular Filt Rate 36.1 mL/min (>60); Globulin 2.8 g/dL (1.7-4.1); Glucose 95 mg/dL (80-110); HEMOLYSIS < 15 (0-50); Potassium 3.8 mmol/L (3.4-5.1); Sodium 139 mmol/L (137-145); Total Protein 6.1 g/dL (6.3-8.2)
[2021-07-08 07:40] LABS: Troponin I 0.017 ng/mL (0.01-0.034)
[2021-07-08 08:01] LABS: Hypochromasia 2+; Microcytosis 2+
[2021-07-08 08:02] LABS: Anisocytosis 3+; Poikilocytosis 1+; Polychromasia 1+
[2021-07-08 08:03] LABS: Ovalocytes 1+
--- NOTE | 2021-07-08 10:23 | CM.DANOTE ---
DCP: Case received, EMR reviewed and met with patient. Introduced self and role. Was able to obtain information regarding patient's baseline activity status prior to hospitalization. DCP assessment completed with information currently available. Patient is a 70 year old female who admitted yesterday evening to the care of the hospitalist team. PCP: Dr. Valladares. Payer: confirmed: Medicare/[employer]. Patient came to the hospital sent over by her primary care provider secondary to symptoms of increased shortness of breath, as well as her lab results. Patient holds current diagnosis of pulmonary embolism/CHF. Patient had been also getting her iron infusion. Patient also had a recent pacer put in at [facility]. Met with patient in her room. She is pleasant. She resides here in [place] with her spouse, Keshav. At her baseline, she does not drive. She uses a FWW at home. Patient indicated that she had a fall around [place] time, and had to help getting her up. Patient stated that she also has a wheel-chair at home for use. P: DCP to continue to follow closely. She does not yet have P.T. orders in place, but may be able to work with P.T. when medically stable. Mirna Munoz RN/Locomotive Switch Operator Discharge Planning/Care Management Advanced directive, confirm from FAMILY Start: 07/08/21 00:52 Freq: Q24H Status: Active Protocol: Document 07/08/21 00:52 MW (Rec: 07/08/21 06:06 MW [id number]) Advance Directive, confirm on record Time 00:20 Person contacted patient Copy received No CM Discharge Assessment Start: 07/08/21 10:19 Freq: Status: Active Protocol: Document 07/08/21 10:21 (Rec: 07/08/21 10:23 [id number]) Discharge Planning Assessment Assigned Tag Press Operator Mirna Munoz RN/Locomotive Switch Operator Advance Directives? No History Provided By Patient,Medical Record Prior Living Arrangements House Household Members spouse Type of transporation used prior to Relies on Others admit Independent with ADL's Yes Is patient alert and oriented? Yes Needs Assistance With Home Chores / Shopping Caregiver for Another No DME Already Rented / Owned FWW / Walker Barriers to Discharge No Discharge Plan Home Referrals Initiated None needed Whiteboard Updated in Patient Room with Yes name and ext. # of Tag Press Operator Review Status In Process Next Review Type Continued Stay Review
[2021-07-08] MEDS: predniSONE 20 MG TABLET 40 MG PO (10:47)
[2021-07-08] MEDS: FUROSEMIDE 20 MG/2 ML VIAL IV ×2 (10:47→20:50)
[2021-07-08] MEDS: METOPROLOL ER 50 MG TABLET 25 MG PO ×2 (10:48→20:50)
[2021-07-08] MEDS: FERROUS SULFATE 325 MG TABLET PO ×2 (10:48→20:50)
[2021-07-08] MEDS: PANTOPRAZOLE DR 40 MG TABLET PO (10:48)
[2021-07-08] MEDS: LEVOTHYROXINE 75 MCG TABLET PO (10:54)
[2021-07-08] MEDS: APIXABAN 5 MG TABLET PO ×2 (10:54→20:59)
[2021-07-08] MEDS: FLECAINIDE 100 MG TABLET PO ×2 (10:54→20:53)
[2021-07-08] MEDS: NIACIN 500 MG TAB ER PO ×2 (10:57→20:54)
--- NOTE | 2021-07-08 14:44 | P.PN_ITS ---
Subjective Subjective Date Patient Seen: 07/08/21 Interval history: BRIEF HPI PATIENT BEING TREATED FOR A BILATERAL PE A URINARY TRACT INFECTION ON ELIQUIS AND ROCEPHIN TODAY SPOKE TO PATIENT WITH HER AT BEDSIDE SHE WOULD LIKE TO GO HOME SOON POSSIBLE SHE DID NOT HAVE ANY INCREASING SHORTNESS OF BREATH OR CHEST PRESSURE NO CHEST PAIN. NO COUGH NO SIGNIFICANT ISSUES IS ADMITTED OVERNIGHT Exam Vital Signs (past 8 hours): - 07/08/21 07:32 07/08/21 07:43 07/08/21 07:50 Temperature 97.9 F Pulse Rate 63 65 Respiratory Rate 16 18 Blood Pressure 131/46 L Pulse Oximetry 98 96 93 07/08/21 10:48 07/08/21 11:15 07/08/21 12:00 Temperature 97.9 F Pulse Rate 66 Respiratory Rate 18 18 Blood Pressure 131/46 L Pulse Oximetry 95 97 07/08/21 12:10 07/08/21 13:15 07/08/21 13:37 Temperature Pulse Rate 61 Respiratory Rate 18 Blood Pressure 103/51 L 127/55 L Pulse Oximetry 97 Oxygen Delivery Method Room Air Oxygen Flow Rate 0 Narrative Exam Narrative: NO ACUTE DISTRESS. MORBIDLY OBESE VITAL SIGNS STABLE HEAD ATRAUMATIC NORMOCEPHALIC NECK : SUPPLE WITHOUT ADENOPATHY NO CAROTID BRUITS EYE: EOMI, PERRLA, NORMAL CONJUNCTIVA; NO JAUNDICE CHEST: REGULAR RATE. NO RUBS. PMI IS NON DISPLACED. NO MURMURS; NORMAL S1- S2 PULMONARY: DECREASED BS OVER THE BASES. MILD BIBASILAR CRACKLES NOTED; NO INCREASED DULLNESS TO PERCUSSION ABDOMEN: SOFT. NONTENDER. NONDISTENDED. BOWEL SOUNDS ARE PRESENT IN ALL 4 QUADRANTS. EXTREMITIES: 2+ NONPITTINGEDEMA.. NO CYANOSIS CLUBBING NOTED. NEURO: CRANIAL NERVES 2-12 GROSSLY INTACT. NO FOCAL NEUROLOGICAL DEFICIT NOTED. MSK: NORMAL RANGE OF MOTION FOR AGE. NO JOINT EFFUSION. SKIN: NORMAL FOR ETHNICITY; NO ECCHYMOSIS. NO LESION. GOOD TURGOR.; NO RASHES : NORMAL EXTERNAL GENITALIA. PSYCH : APPROPRIATE MOOD AND AFFECT. ALERT AWAKE ORIENTED X3 Objective Labs Result Diagrams: 07/08/21 06:53 07/08/21 06:53 Labs: Laboratory Results - last 24 hr 07/07/21 07/07/21 07/07/21 19:24 22:05 22:05 WBC RBC Hgb Hct MCV MCH MCHC RDW Plt Count Neut % (Auto) Lymph % (Auto) [place] % (Auto) Eos % (Auto) Baso % (Auto) Neut # (Auto) Lymph # (Auto) [place] # (Auto) Eos # (Auto) Baso # (Auto) RBC Morphology Polychromasia Hypochromasia Poikilocytosis Anisocytosis Microcytosis Ovalocytes PT INR Sodium Potassium Chloride Carbon Dioxide BUN Creatinine Estimated GFR BUN/Creatinine Ratio Glucose Calcium Phosphorus Magnesium 1.9 Total Bilirubin AST ALT Alkaline Phosphatase Total Creatine Kinase 40 CK-MB (CK-2) TNP CK-MB (CK-2) Rel Index TNP Troponin I 0.016 Total Protein Albumin Globulin Albumin/Globulin Ratio TSH SARS-CoV-2 (PCR) Negative 07/07/21 07/07/21 07/08/21 22:05 22:05 06:53 WBC 6.3 RBC 4.21 Hgb 8.1 L Hct 28.5 L MCV 67.8 L MCH 19.2 L MCHC 28.3 L RDW 22.5 H Plt Count 305 Neut % (Auto) 70.7 Lymph % (Auto) 14.6 L [place] % (Auto) 10.2 Eos % (Auto) 3.1 Baso % (Auto) 1.4 Neut # (Auto) 4500 Lymph # (Auto) 900 L [place] # (Auto) 600 Eos # (Auto) 200 Baso # (Auto) 100 RBC Morphology See below Polychromasia 1+ H Hypochromasia 2+ H Poikilocytosis 1+ H Anisocytosis 3+ H Microcytosis 2+ H Ovalocytes 1+ H PT INR Sodium Potassium Chloride Carbon Dioxide BUN Creatinine Estimated GFR BUN/Creatinine Ratio Glucose Calcium Phosphorus 4.1 Magnesium Total Bilirubin AST ALT Alkaline Phosphatase Total Creatine Kinase CK-MB (CK-2) CK-MB (CK-2) Rel Index Troponin I Total Protein Albumin Globulin Albumin/Globulin Ratio TSH 2.64 SARS-CoV-2 (PCR) 07/08/21 07/08/21 06:53 06:53 WBC RBC Hgb Hct MCV MCH MCHC RDW Plt Count Neut % (Auto) Lymph % (Auto) [place] % (Auto) Eos % (Auto) Baso % (Auto) Neut # (Auto) Lymph # (Auto) [place] # (Auto) Eos # (Auto) Baso # (Auto) RBC Morphology Polychromasia Hypochromasia Poikilocytosis Anisocytosis Microcytosis Ovalocytes PT 27.6 H INR 2.4 H Sodium 139 Potassium 3.8 Chloride 106 Carbon Dioxide 26 BUN 39 H Creatinine 1.43 H Estimated GFR 36.1 L BUN/Creatinine Ratio 27.3 H Glucose 95 Calcium 9.3 Phosphorus Magnesium Total Bilirubin 0.7 AST 18 ALT 11 Alkaline Phosphatase 59 Total Creatine Kinase CK-MB (CK-2) CK-MB (CK-2) Rel Index Troponin I 0.017 Total Protein 6.1 L Albumin 3.3 L Globulin 2.8 Albumin/Globulin Ratio 1.2 TSH SARS-CoV-2 (PCR) [facility] Medical History Anemia Asthma Atrial fibrillation by electrocardiography Bullous pemphigoid (~10/2019) Chickenpox Cholelithiasis Chronic kidney disease (CKD) stage G2/A1, mildly decreased glomerular filtration rate (GFR) between 60-89 mL/min/1.73 square meter and albuminuria creatinine ratio less than 30 mg/g (09/06/17) Chronic obstructive pulmonary disease (10/19/16) Class 1 obesity (09/05/16) Diverticulosis of colon (~12/2020) Eczema Environmental allergies (09/05/16) Fatigue due to sleep pattern disturbance Hepatitis B core antibody positive History of torn meniscus of right knee Hyperlipidemia (01/25/11) Hypertension (01/25/11) Hypothyroidism (~2007) Insomnia due to medical condition Measles Morbid obesity with body mass index (BMI) of 40.0 to 49.9 Osteoarthritis (01/25/11) Pacemaker (~05/2021) Pedal edema Persistent atrial fibrillation Pulmonary nodules/lesions, multiple Recurrent sinusitis (~1999) Seasonal allergies Sigmoid diverticulosis Snoring Surgical History Anesthesia History of foot surgery History of hip replacement (~2010) History of hip replacement (~2012) History of radiofrequency ablation procedure for cardiac arrhythmia (~07/2019) Polyp of nasal sinus Status post hysterectomy with oophorectomy (~1996) Family History Father Heart disease Hypertension Mother Heart disease Stroke Hypertension Diabetes mellitus Dementia Grandfather Cancer Grandmother No problems noted. Grandfather No problems noted. Grandmother No problems noted. Brother Pacemaker Social History marital status: household members: spouse occupational status: previously employed Smoking Status: Former smoker alcohol intake: current substance use type: does not use Assessment & Plan Assessment & Plan narrative: PROBLEM LIST NEW ONSET PE. PRESENT ON ARRIVAL. ON ELIQUIS COPD WITH POSSIBLE ACUTE EXACERBATION. DUONEBS STEROIDS AND ANTIBIOTICS URINARY TRACT INFECTION. GRAM-NEGATIVE BACILLI; ON ROCEPHIN MORBID OBESITY. COUNSELING GIVEN ANEMIA. LIKELY IRON DEFICIENCY. COAGULOPATHY. COULD BE RELATED TO IS A WHILE TO ACUTE KIDNEY INJURY. ON CKD 2; AVOID NEPHROTOXINS PLAN URINE CULTURE TAKEN ON ADMISSION GROWING GRAM-NEGATIVE BACILLI WILL AWAIT IDENTIFICATION AND SENSITIVITY REPORT PRIOR TO MAKE ANY CHANGES TO ANTIBIOTICS MONITOR INPUT AND OUTPUT CLOSELY MONITOR CBC CLOSELY WELL MONITOR BLOOD CULTURE CLOSELY CONTINUE ELIQUIS IN REGARD TO NEW PE MONITOR VITALS STATUS CLOSELY OXYGEN SUPPLEMENT TO MAINTAIN PROPER OXYGEN SATURATION ABOVE 88% AGGRESSIVE PULMONARY TOILETING WITH RT INSIGHTS ANALYST ADDITIONAL MANAGEMENT PER CLINICAL COURSE Time Spent With Patient Critical Care time: I spent a total of [] minutes of critical care time on this patient's care today; this time is exclusive of procedural time.
[2021-07-08] MEDS: LACTOBACILLUS ACIDOPHILUS TABLET 1 EACH PO (16:22)
[2021-07-08] MEDS: ASCORBIC ACID 500 MG TABLET PO ×2 (16:22→20:53)
--- NOTE | 2021-07-08 16:39 | PC.NURSE ---
Pt had relatively uneventful day, Denies discomfort. HL RAC intact/patent. SpO2 97% RA continues w/ fine crackles Tele shows A-fib/BBB per ICU staff. Call light w/in reach, pt calls appropriately for needs. Continue w/plan of care.
[2021-07-08] MEDS: POTASSIUM CHLORIDE 10 MEQ TAB PO (20:50)
[2021-07-08] MEDS: ATORVASTATIN 20 MG TABLET 10 MG PO (20:52)
[2021-07-08] MEDS: GABAPENTIN 600 MG TABLET PO (20:52)
[2021-07-08] MEDS: SENNOSIDES 8.6 MG TABLET 17.2 MG PO (20:53)
[2021-07-08] MEDS: DOXEPIN 10 MG CAPSULE PO (20:54)
[2021-07-08] MEDS: PRAMIPEXOLE 0.25 MG TABLET 0.125 MG PO (21:16)
[2021-07-08] MEDS: SODIUM CHLORIDE 0.9% FLUSH 10 ML IV (21:20)
[2021-07-09] VITALS (9 sets, daily range): BP systolic 120–155; BP diastolic 59–65; PULSE 64–67; RESP 16–20; TEMP 36.3–36.4; O2SAT 94–96
[2021-07-09 07:01] LABS: Add Manual Diff / Slide Review NO; Basophils Absolute Auto 0 /uL (0-100); Basophils Percent Auto 0.3 % (0-2); Eosinophils Absolute Auto 0 /uL (0-450); Eosinophils Percent Auto 0.1 % (2-4); Hematocrit 28.1 % (36-46); Lymphocytes Absolute Auto 1000 /uL (1100-4500); Lymphocytes Percent Auto 13.8 % (25-40); Mean Corpuscular HGB Conc 28.6 % (30-36); Mean Corpuscular Hemoglobin 19.4 PG (26-34); Mean Corpuscular Volume 67.9 fL (80-100); Monocytes Absolute Auto 600 /uL (0-900); Monocytes Percent Auto 9.2 % (3-14); Neutrophils Absolute Auto 5400 /uL (1500-7000); Neutrophils Percent Auto 76.6 % (50-75); Platelet Count 298 X10^3/uL (150-400); Red Blood Cell Count 4.14 X10^6/uL (4.0-5.2); Red Cell Distribution Width 22.5 % (11.6-14.8)
[2021-07-09 07:12] LABS: Phosphorous 3.3 mg/dL (2.8-4.1)
[2021-07-09 07:13] LABS: Alanine Aminotransferase 11 IU/L (<35); Albumin 3.5 g/dL (3.5-5.0); Albumin Globulin Ratio 1.3 (1.0-2.8); Alkaline Phosphatase 59 U/L (38-126); Aspartate Aminotransferase 20 IU/L (14-36); BUN Creatinine Ratio 22.6 (6-22); Bilirubin Total 0.7 mg/dL (0.2-1.3); Blood Urea Nitrogen 31 mg/dL (7-17); Calcium 9.4 mg/dL (8.4-10.2); Carbon Dioxide 29 mmol/L (22-32); Chloride 106 mmol/L (98-107); Estimated Glomerular Filt Rate 37.9 mL/min (>60); Globulin 2.6 g/dL (1.7-4.1); Glucose 112 mg/dL (80-110); HEMOLYSIS < 15 (0-50); Potassium 3.6 mmol/L (3.4-5.1); Sodium 140 mmol/L (137-145); Total Protein 6.1 g/dL (6.3-8.2)
[2021-07-09 07:50] LABS: Anisocytosis 3+; Hypochromasia 2+; Microcytosis 1+; Ovalocytes 1+
[2021-07-09 07:51] LABS: Polychromasia 1+
[2021-07-09 07:53] LABS: Poikilocytosis 1+
[2021-07-09] MEDS: ALBUTEROL/IPRATROPIUM 3 ML AMPUL INH (09:09)
[2021-07-09] MEDS: BUDESONIDE 0.5 MG/2 ML NEB INH (09:09)
[2021-07-09] MEDS: APIXABAN 5 MG TABLET PO (10:00)
[2021-07-09] MEDS: CHOLECALCIFEROL (VITAMIN D3) 400 UNIT TABLET 800 UNIT PO (10:00)
[2021-07-09] MEDS: LACTOBACILLUS ACIDOPHILUS TABLET 1 EACH PO ×2 (10:00→12:45)
[2021-07-09] MEDS: METOPROLOL ER 50 MG TABLET 25 MG PO (10:00)
[2021-07-09] MEDS: PANTOPRAZOLE DR 40 MG TABLET PO (10:00)
[2021-07-09] MEDS: FERROUS SULFATE 325 MG TABLET PO (10:00)
[2021-07-09] MEDS: FUROSEMIDE 20 MG/2 ML VIAL IV (10:00)
[2021-07-09] MEDS: predniSONE 20 MG TABLET 40 MG PO (10:00)
[2021-07-09] MEDS: SODIUM CHLORIDE 0.9% FLUSH 10 ML IV (10:00)
[2021-07-09] MEDS: FLECAINIDE 100 MG TABLET PO (10:00)
[2021-07-09] MEDS: ASCORBIC ACID 500 MG TABLET PO (10:00)
[2021-07-09] MEDS: NIACIN 500 MG TAB ER PO (11:03)
--- NOTE | 2021-07-09 11:38 | PM.DS.1 ---
History of Present Illness History of Present Illness Date Patient Seen: 07/09/21 Chief complaint: Sent over by DR Urias office Narrative: History of Present Illness History of Present Illness Date Patient Seen:?07/07/21 Time Patient Seen:?20:00 Narrative: Mishel Reeder is a 70-year-old female former smoker with history of chronic anemia, persistent atrial fibrillation on Xarelto-post ablation with recent pacemaker placement 05/03/2021, COPD, CKD stage G2/A1, hyperlipidemia, hypothyroidism, peripheral neuropathy,? morbid obesity, autoimmune bollous pemphigoid, YONI/Cpap presented to the ED with her PCP for evaluation of worsening SOB.? She has become sufficiently short of breath, unable to 6-10 feet across the room without becoming profoundly winded, 02 sat in the low 80's% and requiring significant assistance from her .? Patient desats to low 80% while lying in bed and speaking. Desaturation continued to low 80's, even after applying 2L/NC.? Patient reports a few episodes of near-syncope with exertion, worsening global weakness, peripheral edema, and chronically worsening SOB over the past year.? These symptoms were present prior to pacemaker placement, and have only continued to worsen since placement. Patient reports falling to the slate floor due to a syncopal episode around [place], her husbands notes that she had LOC, developing a bump on the head. Following the fall, he reports two episodes of confusion, garbled speech, and extremity weakness. The patient is unable to recall these events. Patient denies weakness, changes in vision, changes in speech, difficulty swallowing, chest pain, abdominal pain, nausea, vomiting, diarrhea, chills, fever, urinary symptoms, vaginal symptoms hematemesis, hematuria, melena, no recent illness or trauma. Patient does note chronic stable bilateral peripheral edema.? She had recently been given a 5 day break from her Xarelto in order to do stool studies to further evaluate her anemia.? PCP Dr. Valladares, Emts Dr. Devyn Blanco, Infectious Disease at [facility]. Upon admit patient's vitals temp 98?, BP 130/58, HR 59, R 22, O2 saturation 80% on room air.? Patient failed multiple ambulation trials, including desaturation at rest.? Patient's hgb 8.5, hct 30.2, MCV 68, BUN 47, creatinine 1.6, GFR 31.7, dimer 1528, Lac D 839, BNP 5820.? Urinalysis is positive for nitrates, culture pending.? CTA demonstrated bilateral segmental and subsegmental pulmonary embolisms without evidence of right heart strain, moderate right pleural effusion with compressive atelectasis, left dual chamber pacemaker without complication and place.? Dr. Hill hematology was consulted in ED. patient admitted for acute respiratory failure secondary to bilateral pulmonary embolisms, right pleural effusion, in addition to exacerbation CHF/COPD, UTI resulting in acute on chronic kidney injury. Discharge Providers Provider Date of admission: 07/07/21 23:57 Discharge Date: 07/09/21 Primary care physician: Tasha Valladares DO Consults: 07/08/21 00:52 Consult to Dietitian, Adult Routine Comment: Reason For Exam: loss of appetite w/ multiple recent medical issues 07/08/21 14:55 Consult to Occupational Therapy Evaluate & Treat Comment: Physician Instructions: Evaluate and treat Consult to Physical Therapy Evaluate & Treat Comment: Physician Instructions: Evaluate and Treat Discharge provider: David Medina DO Summary Hospital Course Discharge Diagnosis: NEW ONSET PE.? PRESENT ON ARRIVAL.?DC ON ELIQUIS ?COPD . ACUTE EXACERBATION RULED OUT ? E COLI URINARY TRACT INFECTION.? PANSENSITIVE. DISCHARGED ON OMNICEF ?MORBID OBESITY. ? COUNSELING GIVEN ?ANEMIA.? IRON DEFICIENCY. BEING OUTPATIENT ? COAGULOPATHY. RELATED TO LONG-TERM ANTICOAGULANT THERAPY. ?ACUTE KIDNEY INJURY.? ON CKD 2;? AVOID NEPHROTOXINS Hospital Course: VERY PLEASANT 70-YEAR-OLD FEMALE SENT TO THE HOSPITAL BY PCP WITH REPORTED PE. SHE HAS BEEN ON XARELTO AND WAS SWITCHED TO ELIQUIS. SHE HAS BEEN DOING VERY WELL AND NO SIGN OF COMPLICATIONS FROM ANTI COAGULANT THERAPY TODAY AT THIS TIME SHE WILL BE CONTINUED ON ELIQUIS ON DISPOSITION. PATIENT HAS A URINARY TRACT INFECTION. E COLI GREW ON THE CULTURE TAKEN ON ADMISSION. THIS IS A PANSENSITIVE ORGANISM. SHE WILL BE DISCHARGED A 7 DAY COURSE OF ANTIBIOTICS. SHE APPEARS TO BE AT BASELINE AT THIS TIME CLINICALLY ADDITIONAL MANAGEMENT WILL BE DEFERRED TO OUTPATIENT PROVIDERS Status at Discharge Cognitive/behavioral status at discharge: oriented Functional status at discharge: independent ambulation Overall status at discharge: patient is back to baseline Time Spent with Patient Time spent: Greater than 30 minutes Exam Vital Signs (past 8 hours): - 07/09/21 04:00 07/09/21 05:41 07/09/21 09:09 Temperature 97.6 F Pulse Rate 67 67 66 Respiratory Rate 18 20 Blood Pressure 120/59 L 120/59 L Pulse Oximetry 94 95 07/09/21 09:15 07/09/21 10:05 Temperature 97.3 F L Pulse Rate 64 65 Respiratory Rate 18 18 Blood Pressure 123/65 Pulse Oximetry 96 Oxygen Delivery Method Room Air Oxygen Flow Rate 0 Narrative Exam Narrative: NO ACUTE DISTRESS. ? MORBIDLY OBESE VITAL SIGNS STABLE HEAD ATRAUMATIC NORMOCEPHALIC NECK : SUPPLE WITHOUT ADENOPATHY NO CAROTID BRUITS EYE:? EOMI, PERRLA, NORMAL CONJUNCTIVA; NO JAUNDICE CHEST:? REGULAR RATE.? ? NO RUBS.? PMI IS NON DISPLACED.? NO MURMURS; NORMAL S1-S2 PULMONARY:? DECREASED BS OVER THE BASES.? MILD BIBASILAR CRACKLES NOTED; NO INCREASED DULLNESS TO PERCUSSION ABDOMEN:? SOFT.? NONTENDER.? NONDISTENDED.? BOWEL SOUNDS ARE PRESENT IN ALL 4 QUADRANTS. ? EXTREMITIES:? 2+ NONPITTINGEDEMA..? NO CYANOSIS CLUBBING NOTED. NEURO:? CRANIAL NERVES 2-12 GROSSLY INTACT. NO FOCAL NEUROLOGICAL DEFICIT NOTED. MSK:? NORMAL RANGE OF MOTION FOR AGE.? NO JOINT EFFUSION. SKIN:? NORMAL FOR ETHNICITY; NO ECCHYMOSIS.? NO LESION. ? GOOD? TURGOR.; NO RASHES :? NORMAL EXTERNAL GENITALIA. PSYCH :? APPROPRIATE MOOD AND AFFECT.? ALERT AWAKE ORIENTED X3 Objective Labs Result Diagrams: 07/09/21 06:36 07/09/21 06:36 Labs: Laboratory Results - last 24 hr 07/09/21 07/09/21 07/09/21 06:36 06:36 06:36 WBC 7.0 RBC 4.14 Hgb 8.0 L Hct 28.1 L MCV 67.9 L MCH 19.4 L MCHC 28.6 L RDW 22.5 H Plt Count 298 Neut % (Auto) 76.6 H Lymph % (Auto) 13.8 L Wirt % (Auto) 9.2 Eos % (Auto) 0.1 L Baso % (Auto) 0.3 Neut # (Auto) 5400 Lymph # (Auto) 1000 L Wirt # (Auto) 600 Eos # (Auto) 0 Baso # (Auto) 0 RBC Morphology See below Polychromasia 1+ H Hypochromasia 2+ H Poikilocytosis 1+ H Anisocytosis 3+ H Microcytosis 1+ H Ovalocytes 1+ H Sodium 140 Potassium 3.6 Chloride 106 Carbon Dioxide 29 BUN 31 H Creatinine 1.37 H Estimated GFR 37.9 L BUN/Creatinine Ratio 22.6 H Glucose 112 H Calcium 9.4 Phosphorus 3.3 Total Bilirubin 0.7 AST 20 ALT 11 Alkaline Phosphatase 59 Total Protein 6.1 L Albumin 3.5 Globulin 2.6 Albumin/Globulin Ratio 1.3 [facility] Medical History Anemia Asthma Atrial fibrillation by electrocardiography Bullous pemphigoid (~10/2019) Chickenpox Cholelithiasis Chronic kidney disease (CKD) stage G2/A1, mildly decreased glomerular filtration rate (GFR) between 60-89 mL/min/1.73 square meter and albuminuria creatinine ratio less than 30 mg/g (09/06/17) Chronic obstructive pulmonary disease (10/19/16) Class 1 obesity (09/05/16) Diverticulosis of colon (~12/2020) Eczema Environmental allergies (09/05/16) Fatigue due to sleep pattern disturbance Hepatitis B core antibody positive History of torn meniscus of right knee Hyperlipidemia (01/25/11) Hypertension (01/25/11) Hypothyroidism (~2007) Insomnia due to medical condition Measles Morbid obesity with body mass index (BMI) of 40.0 to 49.9 Osteoarthritis (01/25/11) Pacemaker (~05/2021) Pedal edema Persistent atrial fibrillation Pulmonary nodules/lesions, multiple Recurrent sinusitis (~1999) Seasonal allergies Sigmoid diverticulosis Snoring Surgical History Anesthesia History of foot surgery History of hip replacement (~2010) History of hip replacement (~2012) History of radiofrequency ablation procedure for cardiac arrhythmia (~07/2019) Polyp of nasal sinus Status post hysterectomy with oophorectomy (~1996) Family History Father Heart disease Hypertension Mother Heart disease Stroke Hypertension Diabetes mellitus Dementia Grandfather Cancer Grandmother No problems noted. Grandfather No problems noted. Grandmother No problems noted. Brother Pacemaker Social History marital status: household members: spouse occupational status: previously employed Smoking Status: Former smoker alcohol intake: current substance use type: does not use Discharge Plan Discharge Plan Patient Disposition: Home Health Service Discharge orders & Medications Prescriptions: New ascorbic acid (vitamin C) [Vitamin C] 500 mg Tablet 500 mg PO BID Qty: 90 2RF Eliquis 5 mg Tablet 5 mg PO BID Qty: 120 2RF furosemide [Lasix] 20 mg tablet 20 mg PO DAILY Qty: 30 0RF cefdinir 300 mg capsule 300 mg PO BID Qty: 14 0RF Continued cyanocobalamin (vitamin B-12) 1,000 MCG tablet extended release 1,000 mcg PO DAILY Qty: 0 0RF pramipexole 0.125 mg tablet 0.125 mg PO BEDTIME Qty: 90 1RF Breo Ellipta 100-25 mcg/dose blister with device See Rx Instructions .ROUTE .COMPLEX Qty: 180 1RF Dose Instruction: INHALE ONE PUFF BY MOUTH ONE TIME DAILY Rx Instructions: INHALE ONE PUFF BY MOUTH ONE TIME DAILY flecainide 50 mg tablet 100 mg PO BID 0RF potassium chloride 10 mEq tablet,ER particles/crystals 10 meq PO BEDTIME 0RF Label Comments: TAKE ONE TABLET BY MOUTH ONE TIME DAILY. doxepin 10 mg capsule 10 mg PO BEDTIME 0RF Label Comments: TAKE ONE CAPSULE BY MOUTH EVERY NIGHT FOR ONE WEEK. MAY INCREASE TO TWO CAPSULES AT NIGHT FOR ONE WEEK AND THEN THREE CAPSULES NIGHTLY IF SHE IS TOLERATING metoprolol succinate 50 mg tablet extended release 24 hr 100 mg PO BID 0RF albuterol sulfate [Ventolin HFA] 90 mcg/actuation HFA aerosol inhaler 2 - 4 puff inhalation Q4H PRN (Reason: Shortness Of Breath) Qty: 8.5 0RF calcium carb-vit D3-magnesium 250-200-125 mg-unit-mg capsule 2 cap PO DAILY 0RF omeprazole magnesium [Prilosec OTC] 20 mg Tablet,Delayed Release (Dr/Ec) 20 mg PO DAILY 0RF niacinamide 500 mg Tablet Extended Release 500 mg PO BID 0RF gabapentin 600 mg tablet 600 mg PO BEDTIME 0RF Rx Instructions: TAKE 1 TABLET BY MOUTH ONCE DAILY AT BEDTIME atorvastatin 10 mg tablet 10 mg PO BEDTIME 0RF Rx Instructions: TAKE ONE TABLET BY MOUTH ONE TIME DAILY AT BEDTIME levothyroxine 75 mcg tablet 75 mcg PO DAILY 0RF Rx Instructions: TAKE 1 TABLET BY MOUTH ONCE DAILY FOR 6 DAYS PER WEEK losartan 50 mg tablet 50 mg PO DAILY 0RF Changed ferrous sulfate 325 mg (65 mg iron) tablet 325 mg PO TID Qty: 60 0RF Follow up/Referrals: Tasha Valladares DO [Primary Care Provider] - Diet/Activity/Treatments Diet: Carb-consistent/Diabetic, Low-fat, Low-sodium and Low-cholesterol Activity: TOLERATED Skin/Wound/Dressing Care Report to your healthcare provider any signs of infection, such as:: chills, fever, night sweats and increased pain Discharge Data Primary Care Provider: Tasha Valladares
--- NOTE | 2021-07-09 14:06 | PT-IP ANOTE ---
Pt already d/cd so cannot initiate PT evaluation.
--- NOTE | 2021-07-09 14:20 | OT.IPNOTE ---
Pt already discharged prior to seeing the pt.
--- NOTE | 2021-07-09 14:51 | PC.NURSE ---
Pt A&Ox3, VSS, afebrile on RA. She denies pain this a.m. She is able to get up to BSC independently with minimal SOB. After RT treatment this a.m. LS clear throught. Minimal edema to BLE's 1+. She is reweighed and reports an 8 lb wt loss since her admission. Yesterday I had trouble bending my legs and today I can. MD at bedside this a.m. evaluating patient and she is medically cleared for discharge. She and verbalize understanding of new medications and plan for discharge as well as follow up appointments. She denies need or desire for home health at this time. She is escorted to private vehicle with after lunch this a .m. with all of her belongings.
== END 2021-07-09 13:00 | disposition home or self-care (01) | DRG 175 ==
LOC: ED 20:05 → AC 07-08 04:06
PROVIDERS: Hospitalist; Admitting Provider Nurse Practitioner Family; Emergency Provider Emergency Medicine; PCP Family Medicine; Visit Provider Nurse Practitioner Family
DX: I26.94 Multiple subsegmental thrombotic pulmonary emboli without acute cor pulmonale (principal); J96.01 Acute respiratory failure with hypoxia; N17.9 Acute kidney failure, unspecified; N39.0 Urinary tract infection, site not specified; I48.19 Other persistent atrial fibrillation; Z68.41 Body mass index [BMI] 40.0-44.9, adult; J90 Pleural effusion, not elsewhere classified; L12.0 Bullous pemphigoid; I13.0 Hypertensive heart and chronic kidney disease with heart failure and stage 1 through stage 4 chronic kidney disease, or unspecified chronic kidney disease; E66.01 Morbid (severe) obesity due to excess calories; J44.9 Chronic obstructive pulmonary disease, unspecified; D50.9 Iron deficiency anemia, unspecified; I12.9 Hypertensive chronic kidney disease with stage 1 through stage 4 chronic kidney disease, or unspecified chronic kidney disease; N18.2 Chronic kidney disease, stage 2 (mild); G47.33 Obstructive sleep apnea (adult) (pediatric); B96.20 Unspecified Escherichia coli [E. coli] as the cause of diseases classified elsewhere; E78.5 Hyperlipidemia, unspecified; G62.9 Polyneuropathy, unspecified; F32.A Depression, unspecified; G25.81 Restless legs syndrome; E03.9 Hypothyroidism, unspecified; K21.9 Gastro-esophageal reflux disease without esophagitis; G47.00 Insomnia, unspecified; Z79.01 Long term (current) use of anticoagulants; Z20.822 Contact with and (suspected) exposure to COVID-19; Z87.891 Personal history of nicotine dependence; Z95.0 Presence of cardiac pacemaker; D64.9 Anemia, unspecified; I50.9 Heart failure, unspecified; I51.7 Cardiomegaly; Z79.899 Other long term (current) drug therapy
CPT/HCPCS: 36415; 71046; 71275; 80053; 81001; 82270; 82550; 82570; 83010; 83615; 83735; 83880; 84100; 84300; 84443; 84484; 85018; 85025; 85045; 85379; 85610; 86880; 87077; 87086; 87186; 87635; 94640; 94760; 96360; 96365; 96366; 99284; C9803; A9270; J1756; J1940; Q9967

== ENCOUNTER → 2021-08-05 14:02 | Outpatient (CLI) | payer MEDICARE, SELFPAY ==
[2021-07-12 16:04] VITALS: BMI 43.1
[2021-08-23 11:23] LABS: Cardiolipin IgA Negative
== END ==
PROVIDERS: PCP Family Medicine; Referring Provider Family Medicine; Visit Provider Family Medicine
DX: D64.9 Anemia, unspecified (principal); I26.94 Multiple subsegmental thrombotic pulmonary emboli without acute cor pulmonale
CPT/HCPCS: 36415; 83520; 86147; 86148

== ENCOUNTER → 2021-10-12 14:43 | Outpatient (CLI) | payer MEDICARE, SELFPAY ==
[2021-07-12 16:04] VITALS: BMI 43.1
[2021-10-12 15:57] LABS: BUN Creatinine Ratio 18.8 (6-22); Blood Urea Nitrogen 21 mg/dL (7-17); Calcium 9.3 mg/dL (8.4-10.2); Carbon Dioxide 32 mmol/L (22-32); Chloride 102 mmol/L (98-107); Estimated Glomerular Filt Rate 51.9 mL/min (>60); Glucose 107 mg/dL (80-110); HEMOLYSIS < 15 (0-50); Potassium 4.3 mmol/L (3.4-5.1); Sodium 140 mmol/L (137-145)
== END ==
PROVIDERS: PCP Family Medicine; Referring Provider Registered Nurse Diabetes Educator; Visit Provider Registered Nurse Diabetes Educator
DX: N18.30 Chronic kidney disease, stage 3 unspecified (principal); R60.9 Edema, unspecified; Z51.81 Encounter for therapeutic drug level monitoring
CPT/HCPCS: 36415; 80048

== ENCOUNTER → 2021-10-22 16:58 | Outpatient (CLI) | payer MEDICARE, SELFPAY ==
[2021-07-12 16:04] VITALS: BMI 43.1
--- NOTE | 2021-10-22 17:00 | DI.RAD.S_ITS ---
PROCEDURE: XR WRIST LT MIN 3V INDICATIONS: fall, left wrist pain TECHNIQUE: 4 views of the wrist were acquired. COMPARISON: None. FINDINGS: Bones: No fractures or dislocations. No suspicious bony lesions. The bones are demineralized. Joint space narrowing and subchondral sclerosis and subchondral cystic changes of the 1st carpometacarpal joint and triscaphe joint. Scaphoid view: No fracture. Soft tissues: No suspicious soft tissue calcifications. IMPRESSION: 1. Degenerative changes. 2. No acute abnormality. Dictated by: Dipak Sorto M.D. on 10/22/2021 at 17:23 Approved by: Dipak Sorto M.D. on 10/22/2021 at 17:24
== END ==
PROVIDERS: PCP Family Medicine; Referring Provider Nurse Practitioner Family; Visit Provider Nurse Practitioner Family
DX: S69.92XA Unspecified injury of left wrist, hand and finger(s), initial encounter (principal); X58.XXXA Exposure to other specified factors, initial encounter
CPT/HCPCS: 73110

== ENCOUNTER → 2021-11-10 14:17 | Outpatient (CLI) | payer MEDICARE, SELFPAY ==
[2021-07-12 16:04] VITALS: BMI 43.1
[2021-11-10 15:01] LABS: Appearance Urine UA CLOUDY; Bilirubin Urine UA NEGATIVE (NEGATIVE); Color Urine UA YELLOW; Glucose Urine UA NEGATIVE (Negative); Ketones Urine UA NEGATIVE (NEGATIVE); Leukocyte Esterase Urine UA 1+ (NEGATIVE); Nitrite Urine UA NEGATIVE (Negative); Occult Blood Urine UA 3+ (Negative); Protein Urine UA 2+ (Negative); Specific Gravity Urine UA 1.025 (1.000-1.035); Urobilinogen Urine UA 0.2 E.U./dL (0.2)
[2021-11-10 15:16] LABS: Amorphous Sediment Urine 1+; Culture Indicated Urine Specimen Cultured
[2021-11-10 17:14] LABS: pH Urine UA 5.5 (4.5-8.0)
[2021-11-10 17:16] LABS: Bacteria Urine Many (>30); RBC Urine 30-100/HPF (0-5/HPF); WBC Urine 30-100/HPF (0-5/HPF)
== END ==
PROVIDERS: PCP Family Medicine; Referring Provider Family Medicine; Visit Provider Family Medicine
DX: N39.0 Urinary tract infection, site not specified (principal)
CPT/HCPCS: 81001; 87077; 87086; 87186

== ENCOUNTER 2021-11-12 15:13 | Emergency (ER) | payer MEDICARE, SELFPAY ==
[2021-07-12 16:04] VITALS: BMI 43.1
[2021-11-12] VITALS (7 sets, daily range): BP systolic 154–189; BP diastolic 67–88; PULSE 64–67; RESP 18; TEMP 36.3; O2SAT 97–100; BMI 38.2
[2021-11-12 16:36] LABS: Add Manual Diff / Slide Review NO; Basophils Absolute Auto 100 /uL (0-100); Basophils Percent Auto 1.1 % (0-2); Eosinophils Absolute Auto 400 /uL (0-450); Hematocrit 41.9 % (36-46); Hemoglobin 13.5 g/dL (12.0-16.0); Lymphocytes Absolute Auto 800 /uL (1100-4500); Lymphocytes Percent Auto 10.7 % (25-40); Mean Corpuscular HGB Conc 32.2 % (30-36); Mean Corpuscular Hemoglobin 28.1 PG (26-34); Mean Corpuscular Volume 87.1 fL (80-100); Monocytes Absolute Auto 500 /uL (0-900); Monocytes Percent Auto 7.6 % (3-14); Neutrophils Absolute Auto 5400 /uL (1500-7000); Neutrophils Percent Auto 75.6 % (50-75); Platelet Count 187 X10^3/uL (150-400); Red Blood Cell Count 4.81 X10^6/uL (4.0-5.2); Red Cell Distribution Width 15.1 % (11.6-14.8); White Blood Cell Count 7.2 X10^3/uL (4.5-11.0)
[2021-11-12 16:47] LABS: BUN Creatinine Ratio 21.1 (6-22); Blood Urea Nitrogen 20 mg/dL (7-17); Calcium 9.1 mg/dL (8.4-10.2); Carbon Dioxide 27 mmol/L (22-32); Chloride 105 mmol/L (98-107); Estimated Glomerular Filt Rate > 60 mL/min (>60); Glucose 99 mg/dL (80-110); HEMOLYSIS < 15 (0-50); Potassium 4.2 mmol/L (3.4-5.1); Sodium 139 mmol/L (137-145)
--- NOTE | 2021-11-12 18:10 | ED_ITS ---
HPI - Extremity Problem General Chief complaint: Extremity Problem,Nontraumatic Stated complaint: LEFT LEG WOUND NOT HEALING Time Seen by Provider: 11/12/21 17:53 Source: patient Mode of arrival: Wheelchair History of Present Illness HPI Narrative: 71-year-old female nonsmoker with history of AFib on long-term anticoagulation, pulmonary embolism, bullous pemphigoid, hypertension, GERD, hypothyroid presents with her at the request of the walk-in clinic for evaluation of a poorly healing wound on her left anterior beavers. She states that about 1 month ago she had a blister in this spot that would frequently leak and eventually scabbed over. She has been having some discomfort with ambulation but denies any specific injury. She has had no dizziness, weakness or lightheadedness. She denies any fever or chills. She denies any loss of control of bowel or bladder, has no saddle anesthesia and denies any footdrop or lower extremity weakness. Related Data Home Medications Medication Instructions Recorded Confirmed cyanocobalamin (vitamin B-12) 1,000 mcg PO DAILY #0 08/05/16 10/22/21 1,000 mcg tablet,extended release omeprazole magnesium 20 mg 20 mg PO DAILY 06/07/18 10/22/21 tablet,delayed release (Prilosec OTC) losartan 50 mg tablet 50 mg PO DAILY 12/25/18 10/22/21 calcium carb-vit D3-magnesium 250 2 cap PO DAILY 11/04/20 10/22/21 mg-200 unit-125 mg capsule flecainide 50 mg tablet 100 mg PO BID tab 06/14/21 10/22/21 doxepin 10 mg capsule 10 mg PO BEDTIME cap 07/07/21 10/22/21 metoprolol succinate 50 mg 100 mg PO BID tab 07/07/21 10/22/21 tablet,extended release 24 hr potassium chloride 10 mEq 10 meq PO BEDTIME tab 07/07/21 10/22/21 tablet,extended release(part/cryst) atorvastatin 10 mg tablet 10 mg PO BEDTIME 07/08/21 10/22/21 gabapentin 600 mg tablet 600 mg PO BEDTIME 07/08/21 10/22/21 niacinamide 500 mg tablet,extended 500 mg PO BID 07/08/21 10/22/21 release ferrous sulfate 325 mg (65 mg 325 mg PO DAILY 08/18/21 10/22/21 iron) tablet Previous Rx's Medication Instructions Recorded albuterol sulfate 90 mcg/actuation 2 - 4 puff INHALATION Q4H PRN #8.5 04/08/20 aerosol inhaler (Ventolin HFA) gram fluticasone furoate 100 See Rx Instructions .ROUTE 05/11/21 mcg-vilanterol 25 mcg/dose .COMPLEX #180 ea inhalation powder (Breo Ellipta) apixaban 5 mg tablet (Eliquis) 5 mg PO BID #120 tab 07/09/21 levothyroxine 75 mcg tablet See Rx Instructions .ROUTE 08/27/21 .COMPLEX #90 tablet torsemide 5 mg tablet 2.5 mg PO DAILY #30 tab 09/22/21 pramipexole 0.125 mg tablet 0.125 mg PO BEDTIME #90 tab 11/05/21 cephalexin 500 mg capsule 500 mg PO BID 5 Days #10 cap 11/11/21 Allergies Allergy/AdvReac Type Severity Reaction Status Date / Time No Known Drug Allergies Allergy Verified 11/12/21 16:05 Review of Systems Review of Systems Narrative: GENERAL: Denies chills, fatigue, malaise, fever, sweats. HEENT: Denies sinus pain, ear pain, sore throat, difficulty swallowing, dizziness. RESPIRATORY: Denies dyspnea, cough, wheezing, hemoptysis, sputum. CARDIOVASCULAR: Denies chest pain, palpitations, orthopnea, edema, GASTROINTESTINAL: Denies nausea, vomiting, abdominal pain, diarrhea, constipat ion, melena. : Denies dysuria, frequency, incontinence, hematuria, urinary retention. MUSCULOSKELETAL: denies weakness, joint pain, or bony pain SKIN: See HPI NEUROLOGIC: Denies weakness, headache, numbness, change in speech, confusion, seizures, incoordination. PSYCHIATRIC: No concerning psychosocial issues. 12 point review of systems is negative except for those stated above Patient History Medical History Anemia Asthma Atrial fibrillation by electrocardiography Bullous pemphigoid (~10/2019) Chickenpox Cholelithiasis Chronic kidney disease (CKD) stage G2/A1, mildly decreased glomerular filtration rate (GFR) between 60-89 mL/min/1.73 square meter and albuminuria creatinine ratio less than 30 mg/g (09/06/17) Chronic obstructive pulmonary disease (10/19/16) Class 1 obesity (09/05/16) Diverticulosis of colon (~12/2020) Eczema Environmental allergies (09/05/16) Fatigue due to sleep pattern disturbance Hepatitis B core antibody positive History of torn meniscus of right knee Hyperlipidemia (01/25/11) Hypertension (01/25/11) Hypothyroidism (~2007) Insomnia due to medical condition Measles Morbid obesity with body mass index (BMI) of 40.0 to 49.9 Osteoarthritis (01/25/11) Pacemaker (~05/2021) Pedal edema Persistent atrial fibrillation Pulmonary nodules/lesions, multiple Recurrent sinusitis (~1999) Seasonal allergies Sigmoid diverticulosis Snoring Surgical History Anesthesia History of foot surgery History of hip replacement (~2010) History of hip replacement (~2012) History of radiofrequency ablation procedure for cardiac arrhythmia (~07/2019) Polyp of nasal sinus Status post hysterectomy with oophorectomy (~1996) Family History Father Heart disease Hypertension Mother Heart disease Stroke Hypertension Diabetes mellitus Dementia Grandfather Cancer Grandmother No problems noted. Grandfather No problems noted. Grandmother No problems noted. Brother Pacemaker Social History marital status: household members: spouse occupational status: previously employed Smoking Status: Former smoker alcohol intake: current substance use type: does not use Smoking Status: Former smoker alcohol intake frequency: a few times a month Substance Use Type: does not use Exam Narrative Exam Narrative: GENERAL: [] year old patient appears stated age. Well-developed patient, in mild distress. HEAD: Atraumatic. Normocephalic. EYES: Pupils equal round and reactive. Extraocular motions intact. No scleral icterus. No injection or drainage. ENT: Nose without bleeding, purulent drainage. Throat without erythema, tonsillar hypertrophy or exudate. Airway patent. NECK: Trachea midline. Non tender CARDIOVASCULAR: Regular rate and rhythm without murmurs, gallops, or rubs. RESPIRATORY: Clear to auscultation. Breath sounds equal bilaterally. No wheezes, rales, or rhonchi. GASTROINTESTINAL: Abdomen soft, non-tender, nondistended. EXTREMITIES: 2 x 2 cm kyleigh are with very minimal surrounding erythema, no drainage, no induration, no fluctuance or lymphangitis in the anterior mid beavers left lower extremity. No edema or joint tenderness. Bilateral lower extremitie s 5/5 strength with 1+ patellar reflexes. Sensation in dorsalis pedis is present bilaterally BACK: Nontender without deformity or crepitance. No flank tenderness. NEURO: AOx3. SKIN: No rash or erythema of visible areas Initial Vital Signs Initial Vital Signs: Vital Signs Temperature 97.3 F L 11/12/21 15:51 Pulse Rate 67 11/12/21 15:51 Respiratory Rate 18 11/12/21 15:51 Blood Pressure 173/74 H 11/12/21 15:51 Pulse Oximetry 99 11/12/21 15:51 Course Orders Ordered: ED Orders 11/12/21 18:18 XR tibia fibula LT 2V Stat 11/12/21 18:19 US periph venous low extrem lt Stat 11/12/21 19:05 CRP [C-Reactive Protein Quant] Stat ESR [Erythrocyte Sedimentation Rate] Stat Vital Signs Vital signs: Vital Signs - 8 hr 11/12/21 17:56 11/12/21 18:00 11/12/21 18:01 Pulse Rate 64 66 65 Respiratory Rate Blood Pressure 189/88 H 154/67 H Pulse Oximetry 99 100 99 11/12/21 20:35 11/12/21 20:37 11/12/21 21:15 Pulse Rate 67 67 Respiratory Rate 18 Blood Pressure 155/84 H 155/84 H Pulse Oximetry 97 MDM - Extremity (Nontraumatic) Lab Data Result diagrams: 11/12/21 16:20 11/12/21 16:20 Labs: Lab Results 11/12/21 11/12/21 11/12/21 Range/Units 16:20 16:20 19:05 WBC 7.2 (4.5-11.0) X10^3/uL RBC 4.81 (4.0-5.2) X10^6/uL Hgb 13.5 (12.0-16.0) g/dL Hct 41.9 (36-46) % MCV 87.1 (80-100) fL MCH 28.1 (26-34) PG MCHC 32.2 (30-36) % RDW 15.1 H (11.6-14.8) % Plt Count 187 (150-400) X10^3/uL Neut % (Auto) 75.6 H (50-75) % Lymph % (Auto) 10.7 L (25-40) % [place] % (Auto) 7.6 (3-14) % Eos % (Auto) 5.0 H (2-4) % Baso % (Auto) 1.1 (0-2) % Neut # (Auto) 5400 (5948-3795) /uL Lymph # (Auto) 800 L (8414-8064) /uL [place] # (Auto) 500 (0-900) /uL Eos # (Auto) 400 (0-450) /uL Baso # (Auto) 100 (0-100) /uL ESR 22 H (0-20) MM/HR Sodium 139 (137-145) mmol/L Potassium 4.2 (3.4-5.1) mmol/L Chloride 105 (98-107) mmol/L Carbon Dioxide 27 (22-32) mmol/L BUN 20 H (7-17) mg/dL Creatinine 0.95 (0.52-1.04) mg/dL Estimated GFR > 60 (>60) mL/min BUN/Creatinine Ratio 21.1 (6-22) Glucose 99 (80-110) mg/dL Calcium 9.1 (8.4-10.2) mg/dL C-Reactive Protein (<1.0) mg/dL / Range/Units 19:05 WBC (4.5-11.0) X10^3/uL RBC (4.0-5.2) X10^6/uL Hgb (12.0-16.0) g/dL Hct (36-46) % MCV (80-100) fL MCH (26-34) PG MCHC (30-36) % RDW (11.6-14.8) % Plt Count (150-400) X10^3/uL Neut % (Auto) (50-75) % Lymph % (Auto) (25-40) % [place] % (Auto) (3-14) % Eos % (Auto) (2-4) % Baso % (Auto) (0-2) % Neut # (Auto) (9651-7440) /uL Lymph # (Auto) (5127-9298) /uL [place] # (Auto) (0-900) /uL Eos # (Auto) (0-450) /uL Baso # (Auto) (0-100) /uL ESR (0-20) MM/HR Sodium (137-145) mmol/L Potassium (3.4-5.1) mmol/L Chloride (98-107) mmol/L Carbon Dioxide (22-32) mmol/L BUN (7-17) mg/dL Creatinine (0.52-1.04) mg/dL Estimated GFR (>60) mL/min BUN/Creatinine Ratio (6-22) Glucose (80-110) mg/dL Calcium (8.4-10.2) mg/dL C-Reactive Protein 3.2 H (<1.0) mg/dL Imaging Data Extremity x-ray #1: Radiologist's Impression: Launch?[place] [address] XRay Report Signed Patient: Mishel Reeder MR#: [id number] : 1950 Acct:[id number] Age/Sex: 71 / F Date of Service: 11/12/21 Loc: ED Accession Number: [id number] ?? Procedure: XR tibia fibula LT 2V Ordering Provider: Lj Bean D.O. PROCEDURE:? XR TIBIA FIBULA LT 2V ? INDICATIONS:? poorly healing wound x1 month, signs of osteo? ? TECHNIQUE:? 2 views of the tibia and fibula were acquired.? ? COMPARISON:? None. ? FINDINGS:? ? Bones:? No fractures or dislocations.? No periosteal reaction.? No focal sclerosis.? No suspicious bony lesions.? Degenerative change at the knee joint. ? Soft tissues:? No suspicious soft tissue calcifications or masses.? No radiopaque foreign body. ? IMPRESSION:? No osseous erosion or focal sclerosis demonstrated. ? Consider follow-up three-phase bone scan or MRI for further evaluation for osteomyelitis. ? ? Dictated by: Leopoldo Longo M.D. on 11/12/2021 at 19:01 ? ? Approved by: Leopoldo Longo M.D. on 11/12/2021 at 19:03 ? US - DVT: Radiologist's Impression: Mishel Reeder??71??F??1950 ? Allergy/Adv: No Known Drug Allergies Close Vascular Ultrasound (Signed) Call,Leopoldo - 11/12/21 Tibia/Fibula X-Ray (Signed) Call,Leopoldo - 11/12/21 Wrist X-Ray (Signed) Dipak Sorto - 10/22/21 Telemetry Strips 07/07/21 Chest CTA (Signed) Danish Raeic - 07/07/21 Chest X-Ray (Signed) Danish Raeic - 07/07/21 Chest X-Ray (Signed) Call,Leopoldo - 06/14/[address] (Signed) Rogerio Abreu - 12/09/20 Telemetry Strips 11/26/20 Abdomen Ultrasound (Signed) Sacha Vanessa - 03/03/20 Mammogram Screening (Signed) Rogerio Abreu - 02/15/20 DI Result CC 12/30/[address] (Signed) Cammy Barraza - 12/04/19 Outside DI 07/10/19 DI Result CC 07/02/19 Echocardiogram Ultrasound (Signed) Qiana Nathan - 02/28/19 Myocardial Perfusion Scan Nuc Med (Signed) Roseline Koo - 07/17/18 Echocardiogram Ultrasound (Signed) Tomasz Rivers - 06/27/18 Chest X-Ray (Signed) James Pedro - 06/07/18 Launch?[place] [address] Ultrasound Report Signed Patient: Mishel Reeder MR#: [id number] : 1950 Acct:[id number] Age/Sex: 71 / F Date of Service: 11/12/21 Loc: ED Accession Number: [id number] ?? Procedure: US periph venous low extrem lt Ordering Provider: Lj Bean D.O. PROCEDURE:? US PERIPH VENOUS LOW EXTREM LT ? INDICATIONS:? PAIN, EDEMA ? TECHNIQUE:? Real-time imaging, as well as color and pulse Doppler interrogation, were performed of the lower extremity deep veins from the inguinal ligament to the popliteal fossa.? ? COMPARISON:? [facility], CR, XR TIBIA FIBULA LT 2V, 11/12/2021, 18:21. ? FINDINGS:? The common femoral, femoral and popliteal veins are normally compressible, and free of intraluminal thrombus.? Color and pulse Doppler demonstrate normal phasic intraluminal flow.? There is normal augmentation response to distal compression maneuver. ? ? Popliteal fossa fluid collection measuring 2.7 x 2.6 x 1 cm. ? IMPRESSION:? No left lower extremity DVT. ? Small Noe's cyst. ? ? Dictated by: Leopoldo Longo M.D. on 11/12/2021 at 20:09 ? ? Approved by: Leopoldo Longo M.D. on 11/12/2021 at 20:10 ? MDM Narrative Medical decision making narrative: Multiple etiologies for patient's symptoms considered including: [DVT versus osteomyelitis versus active infection versus chronic healing complications versus other Patient has very reassuring history physical exam, no indication for antibiotics today. Patient is ambulatory through the department. Referral to Wound Care sent on her behalf Findings and discharge diagnosis discussed with patient/family followed by verbalization of understanding Return precautions discussed with patient/family whom verbalize understanding. Discharge Plan Departure Patient Disposition: Home Clinical Impression: Leg wound, left Activity Restrictions/Additional Instructions: *You have been diagnosed with [chronic left lower extremity wound. As we discussed, your history and physical exam as well as labs and imaging are very reassuring. The ultrasound shows no evidence of clot and the x-ray shows no obvious involvement of the bone. *What to do: *Please continue to take your regular medications as directed. [ ] New medication prescriptions sent to your pharmacy: [ ] [ ] New medication written as a paper prescription [ ] No new medications given *Please follow up with your primary care provider in 2-3 days, call for an appointment. Let them know you were seen in the Emergency Department and that we ask that you be seen in follow up. We will electronically transmit a record of monet mejia's note if your PCP is in our system *If you do not have a primary care provider please contact the [facility] Resource line at [phone]. They will ask some questions about your medical history and help get you set up with a doctor in the community. *Return to Emergency Department if you should have any new, worsening or concerning symptoms, such as [fever greater than 101 F, shaking chills, worsening pain, persistent vomiting or other bothersome symptoms] Prescriptions: No Action cyanocobalamin (vitamin B-12) 1,000 MCG tablet extended release 1,000 mcg PO DAILY Qty: 0 0RF Breo Ellipta 100-25 mcg/dose blister with device See Rx Instructions .ROUTE .COMPLEX Qty: 180 1RF Dose Instruction: INHALE ONE PUFF BY MOUTH ONE TIME DAILY Rx Instructions: INHALE ONE PUFF BY MOUTH ONE TIME DAILY flecainide 50 mg tablet 100 mg PO BID 0RF levothyroxine 75 mcg tablet See Rx Instructions .ROUTE .COMPLEX Qty: 90 0RF Dose Instruction: TAKE ONE TABLET BY MOUTH ONE TIME DAILY FOR 6 DAYS PER WEEK Rx Instructions: TAKE ONE TABLET BY MOUTH ONE TIME DAILY FOR 6 DAYS PER WEEK pramipexole 0.125 mg tablet 0.125 mg PO BEDTIME Qty: 90 1RF cephalexin 500 mg capsule 500 mg PO BID 5 Days Qty: 10 0RF potassium chloride 10 mEq tablet,ER particles/crystals 10 meq PO BEDTIME 0RF Label Comments: TAKE ONE TABLET BY MOUTH ONE TIME DAILY. doxepin 10 mg capsule 10 mg PO BEDTIME 0RF Label Comments: TAKE ONE CAPSULE BY MOUTH EVERY NIGHT FOR ONE WEEK. MAY INCREASE TO TWO CAPSULES AT NIGHT FOR ONE WEEK AND THEN THREE CAPSULES NIGHTLY IF SHE IS TOLERATING metoprolol succinate 50 mg tablet extended release 24 hr 100 mg PO BID 0RF albuterol sulfate [Ventolin HFA] 90 mcg/actuation HFA aerosol inhaler 2 - 4 puff inhalation Q4H PRN (Reason: Shortness Of Breath) Qty: 8.5 0RF torsemide 5 mg tablet 2.5 mg PO DAILY Qty: 30 1RF calcium carb-vit D3-magnesium 250-200-125 mg-unit-mg capsule 2 cap PO DAILY 0RF ferrous sulfate 325 mg (65 mg iron) tablet 325 mg PO DAILY 0RF omeprazole magnesium [Prilosec OTC] 20 mg Tablet,Delayed Release (Dr/Ec) 20 mg PO DAILY 0RF niacinamide 500 mg Tablet Extended Release 500 mg PO BID 0RF gabapentin 600 mg tablet 600 mg PO BEDTIME 0RF Rx Instructions: TAKE 1 TABLET BY MOUTH ONCE DAILY AT BEDTIME atorvastatin 10 mg tablet 10 mg PO BEDTIME 0RF Rx Instructions: TAKE ONE TABLET BY MOUTH ONE TIME DAILY AT BEDTIME Eliquis 5 mg Tablet 5 mg PO BID Qty: 120 2RF losartan 50 mg tablet 50 mg PO DAILY 0RF Referrals: Olinda Vanessa MD [Primary Care Provider] -
--- NOTE | 2021-11-12 18:18 | DI.RAD.S_ITS ---
PROCEDURE: XR TIBIA FIBULA LT 2V INDICATIONS: poorly healing wound x1 month, signs of osteo? TECHNIQUE: 2 views of the tibia and fibula were acquired. COMPARISON: None. FINDINGS: Bones: No fractures or dislocations. No periosteal reaction. No focal sclerosis. No suspicious bony lesions. Degenerative change at the knee joint. Soft tissues: No suspicious soft tissue calcifications or masses. No radiopaque foreign body. IMPRESSION: No osseous erosion or focal sclerosis demonstrated. Consider follow-up three-phase bone scan or MRI for further evaluation for osteomyelitis. Dictated by: Leopoldo Longo M.D. on 11/12/2021 at 19:01 Approved by: Leopoldo Longo M.D. on 11/12/2021 at 19:03
--- NOTE | 2021-11-12 18:19 | DI.US.S_ITS ---
PROCEDURE: US PERIPH VENOUS LOW EXTREM LT INDICATIONS: PAIN, EDEMA TECHNIQUE: Real-time imaging, as well as color and pulse Doppler interrogation, were performed of the lower extremity deep veins from the inguinal ligament to the popliteal fossa. COMPARISON: [facility], CR, XR TIBIA FIBULA LT 2V, 11/12/2021, 18:21. FINDINGS: The common femoral, femoral and popliteal veins are normally compressible, and free of intraluminal thrombus. Color and pulse Doppler demonstrate normal phasic intraluminal flow. There is normal augmentation response to distal compression maneuver. Popliteal fossa fluid collection measuring 2.7 x 2.6 x 1 cm. IMPRESSION: No left lower extremity DVT. Small Noe's cyst. Dictated by: Leopoldo Longo M.D. on 11/12/2021 at 20:09 Approved by: Leopoldo Longo M.D. on 11/12/2021 at 20:10
--- NOTE | 2021-11-12 18:28 | PC.NURSE ---
Pt reports a hx of Bullous pemphigoid which she states caused this current wound on her LLE. Small, scattered, blisters noted on her right calf.
[2021-11-12 19:30] LABS: C-Reactive Protein Quant 3.2 mg/dL (<1.0)
[2021-11-12 19:41] LABS: Erythrocyte Sedimentation Rate 22 MM/HR (0-20)
== END 2021-11-12 20:36 | disposition home or self-care (01) ==
PROVIDERS: Emergency Medicine; Emergency Provider Emergency Medicine; PCP Family Medicine
DX: S81.802A Unspecified open wound, left lower leg, initial encounter (principal); R60.9 Edema, unspecified
CPT/HCPCS: 36415; 73590; 80048; 85025; 85651; 86140; 93971; 99284

== ENCOUNTER → 2021-11-19 08:18 | Outpatient (CLI) | payer MEDICARE, SELFPAY ==
[2021-07-12 16:04] VITALS: BMI 43.1
== END ==
PROVIDERS: Family Provider Family Medicine; PCP Family Medicine; Referring Provider Emergency Medicine; Visit Provider Nurse Practitioner Family
DX: L12.0 Bullous pemphigoid (principal); L97.822 Non-pressure chronic ulcer of other part of left lower leg with fat layer exposed; R60.0 Localized edema; I13.0 Hypertensive heart and chronic kidney disease with heart failure and stage 1 through stage 4 chronic kidney disease, or unspecified chronic kidney disease; N18.9 Chronic kidney disease, unspecified; I50.9 Heart failure, unspecified; I48.91 Unspecified atrial fibrillation; Z79.01 Long term (current) use of anticoagulants; Z95.0 Presence of cardiac pacemaker; Z86.711 Personal history of pulmonary embolism
CPT/HCPCS: 11042; 87070; 87075; 87205; 93922; 99204; 99214

== ENCOUNTER → 2021-11-24 14:09 | Outpatient (CLI) | payer MEDICARE, SELFPAY ==
[2021-11-23 16:13] VITALS: BMI 43.1
== END ==
PROVIDERS: Family Provider Family Medicine; PCP Family Medicine; Visit Provider Physician Assistant
DX: N34.3 Urethral syndrome, unspecified (principal)
CPT/HCPCS: 87077; 87086; 87186

== ENCOUNTER → 2021-11-26 12:09 | Outpatient (CLI) | payer MEDICARE, SELFPAY ==
[2021-11-23 16:13] VITALS: BMI 43.1
== END ==
PROVIDERS: Family Provider Family Medicine; PCP Family Medicine; Referring Provider Emergency Medicine; Visit Provider Nurse Practitioner Family
DX: L12.0 Bullous pemphigoid (principal); L97.822 Non-pressure chronic ulcer of other part of left lower leg with fat layer exposed; R60.0 Localized edema; I13.0 Hypertensive heart and chronic kidney disease with heart failure and stage 1 through stage 4 chronic kidney disease, or unspecified chronic kidney disease; N18.9 Chronic kidney disease, unspecified; I50.9 Heart failure, unspecified; I48.91 Unspecified atrial fibrillation; Z79.01 Long term (current) use of anticoagulants; Z95.0 Presence of cardiac pacemaker; Z86.711 Personal history of pulmonary embolism
CPT/HCPCS: 11042

== ENCOUNTER → 2021-12-03 12:04 | Outpatient (CLI) | payer MEDICARE, SELFPAY ==
[2021-11-23 16:13] VITALS: BMI 43.1
== END ==
PROVIDERS: Family Provider Family Medicine; PCP Family Medicine; Referring Provider Family Medicine; Visit Provider Nurse Practitioner Family
DX: L12.0 Bullous pemphigoid (principal); L97.822 Non-pressure chronic ulcer of other part of left lower leg with fat layer exposed; R60.0 Localized edema; I13.0 Hypertensive heart and chronic kidney disease with heart failure and stage 1 through stage 4 chronic kidney disease, or unspecified chronic kidney disease; N18.9 Chronic kidney disease, unspecified; I50.9 Heart failure, unspecified; I48.91 Unspecified atrial fibrillation; Z95.0 Presence of cardiac pacemaker; Z86.711 Personal history of pulmonary embolism; Z79.01 Long term (current) use of anticoagulants
CPT/HCPCS: 11042

== ENCOUNTER → 2021-12-10 10:45 | Outpatient (CLI) | payer MEDICARE, SELFPAY ==
[2021-11-23 16:13] VITALS: BMI 43.1
== END ==
PROVIDERS: Family Provider Family Medicine; PCP Family Medicine; Referring Provider Family Medicine; Visit Provider Nurse Practitioner Family
DX: L12.0 Bullous pemphigoid (principal); L97.822 Non-pressure chronic ulcer of other part of left lower leg with fat layer exposed; R60.0 Localized edema; R10.13 Epigastric pain; R11.0 Nausea; I50.9 Heart failure, unspecified; N17.9 Acute kidney failure, unspecified
CPT/HCPCS: 36415; 80048; 83013; 99213

== ENCOUNTER → 2021-12-10 11:06 | Outpatient (CLI) | payer MEDICARE, SELFPAY ==
[2021-11-23 16:13] VITALS: BMI 43.1
[2021-12-10 12:30] LABS: Blood Urea Nitrogen 23 mg/dL (7-17); Carbon Dioxide 28 mmol/L (22-32); Chloride 105 mmol/L (98-107); Estimated Glomerular Filt Rate > 60 mL/min (>60); Glucose 88 mg/dL (80-110); HEMOLYSIS < 15 (0-50); Potassium 4.3 mmol/L (3.4-5.1); Sodium 138 mmol/L (137-145)
[2021-12-13 14:36] LABS: Interpretation Negative (Negative)
== END ==
PROVIDERS: Family Provider Family Medicine; PCP Family Medicine; Referring Provider Registered Nurse Diabetes Educator; Visit Provider Registered Nurse Diabetes Educator
DX: R10.13 Epigastric pain (principal); R11.0 Nausea; I50.9 Heart failure, unspecified; N17.9 Acute kidney failure, unspecified
CPT/HCPCS: 36415; 80048; 83013

== ENCOUNTER → 2021-12-13 11:49 | Outpatient (CLI) | payer MEDICARE, SELFPAY ==
[2021-11-23 16:13] VITALS: BMI 43.1
[2021-12-13 13:47] LABS: Appearance Urine UA SL CLOUDY; Bilirubin Urine UA NEGATIVE (NEGATIVE); Color Urine UA YELLOW; Glucose Urine UA NEGATIVE (Negative); Ketones Urine UA NEGATIVE (NEGATIVE); Leukocyte Esterase Urine UA 2+ (NEGATIVE); Nitrite Urine UA NEGATIVE (Negative); Occult Blood Urine UA 3+ (Negative); Protein Urine UA TRACE (Negative); Specific Gravity Urine UA 1.015 (1.000-1.035); Urobilinogen Urine UA 0.2 E.U./dL (0.2)
[2021-12-13 13:50] LABS: pH Urine UA 5.5 (4.5-8.0)
[2021-12-13 13:52] LABS: Bacteria Urine None Seen; Culture Indicated Urine Cult Not Indicated; RBC Urine 10-30/HPF (0-5/HPF); Squamous Epithelial Cell Urine 5-10 /HPF (0-5/HPF); WBC Urine 10-30/HPF (0-5/HPF)
== END ==
PROVIDERS: Family Provider Family Medicine; PCP Pediatrics; Referring Provider Pediatrics; Visit Provider Pediatrics
DX: G25.81 Restless legs syndrome (principal); I10 Essential (primary) hypertension; L12.0 Bullous pemphigoid; N18.2 Chronic kidney disease, stage 2 (mild); N39.0 Urinary tract infection, site not specified; R31.9 Hematuria, unspecified
CPT/HCPCS: 81001; 87077; 87086; 87186

== ENCOUNTER → 2021-12-17 14:09 | Outpatient (CLI) | payer MEDICARE, SELFPAY ==
[2021-11-23 16:13] VITALS: BMI 43.1
== END ==
PROVIDERS: Family Provider Family Medicine; PCP Pediatrics; Referring Provider Pediatrics; Visit Provider Family Medicine
DX: L12.0 Bullous pemphigoid (principal); L97.822 Non-pressure chronic ulcer of other part of left lower leg with fat layer exposed; R60.0 Localized edema; E11.22 Type 2 diabetes mellitus with diabetic chronic kidney disease; I13.0 Hypertensive heart and chronic kidney disease with heart failure and stage 1 through stage 4 chronic kidney disease, or unspecified chronic kidney disease; I50.9 Heart failure, unspecified; N18.9 Chronic kidney disease, unspecified; I48.91 Unspecified atrial fibrillation; E66.9 Obesity, unspecified; Z68.38 Body mass index [BMI] 38.0-38.9, adult; Z79.01 Long term (current) use of anticoagulants; Z95.0 Presence of cardiac pacemaker; Z86.711 Personal history of pulmonary embolism
CPT/HCPCS: 11042; 99213

== ENCOUNTER → 2021-12-24 12:00 | Outpatient (CLI) | payer MEDICARE, SELFPAY ==
[2021-11-23 16:13] VITALS: BMI 43.1
== END ==
PROVIDERS: Family Provider Student in an Organized Health Care Education/Training Program; PCP Student in an Organized Health Care Education/Training Program; Referring Provider Student in an Organized Health Care Education/Training Program; Visit Provider Nurse Practitioner Family
DX: L12.0 Bullous pemphigoid (principal); L97.822 Non-pressure chronic ulcer of other part of left lower leg with fat layer exposed; R60.0 Localized edema; I13.0 Hypertensive heart and chronic kidney disease with heart failure and stage 1 through stage 4 chronic kidney disease, or unspecified chronic kidney disease; N18.9 Chronic kidney disease, unspecified; I50.9 Heart failure, unspecified; I48.91 Unspecified atrial fibrillation; Z79.01 Long term (current) use of anticoagulants; Z95.0 Presence of cardiac pacemaker; Z86.711 Personal history of pulmonary embolism
CPT/HCPCS: 15271; Q4196

== ENCOUNTER → 2022-01-07 13:08 | Outpatient (CLI) | payer MEDICARE, SELFPAY ==
[2021-11-23 16:13] VITALS: BMI 43.1
== END ==
PROVIDERS: Family Provider Student in an Organized Health Care Education/Training Program; PCP Student in an Organized Health Care Education/Training Program; Referring Provider Student in an Organized Health Care Education/Training Program; Visit Provider Family Medicine
DX: L12.0 Bullous pemphigoid (principal); L97.822 Non-pressure chronic ulcer of other part of left lower leg with fat layer exposed; R60.0 Localized edema; I13.0 Hypertensive heart and chronic kidney disease with heart failure and stage 1 through stage 4 chronic kidney disease, or unspecified chronic kidney disease; N18.9 Chronic kidney disease, unspecified; I50.9 Heart failure, unspecified; I48.91 Unspecified atrial fibrillation; Z79.01 Long term (current) use of anticoagulants; Z86.711 Personal history of pulmonary embolism; Z95.0 Presence of cardiac pacemaker
CPT/HCPCS: 15271; Q4196

== ENCOUNTER → 2022-01-28 11:04 | Outpatient (CLI) | payer MEDICARE, SELFPAY ==
[2021-11-23 16:13] VITALS: BMI 43.1
== END ==
PROVIDERS: Family Provider Student in an Organized Health Care Education/Training Program; PCP Student in an Organized Health Care Education/Training Program; Referring Provider Student in an Organized Health Care Education/Training Program; Visit Provider Nurse Practitioner Family
DX: L12.0 Bullous pemphigoid (principal); L97.821 Non-pressure chronic ulcer of other part of left lower leg limited to breakdown of skin; R60.0 Localized edema; Z95.0 Presence of cardiac pacemaker; Z79.01 Long term (current) use of anticoagulants; S80.822A Blister (nonthermal), left lower leg, initial encounter
CPT/HCPCS: 97597; 99213

== ENCOUNTER 2022-02-03 10:30 | Outpatient (RCR) | payer MEDICARE, SELFPAY ==
[2021-11-23 16:13] VITALS: BMI 43.1
--- NOTE | 2022-01-26 08:51 | PT.OPPOC ---
Physical, Occupational & Speech Therapy At [facility] Current Diagnoses Iliotibial band syndrome, left leg (01/26/22) Difficulty in walking, not elsewhere classified (01/26/22) Dizziness and giddiness (01/26/22) Weakness (01/26/22) Visit Care Team Role Provider Type Brent Dumont MD Attending Provider Physician Family Provider Primary Care Provider Referring Provider Specialty: Internal Medicine Address: [address] [place] [address], [address], [address] Email: [email or web address] Plan Of Care PT-OP-T Assessment and Plan Start: 01/26/22 09:04 Freq: Status: Active Protocol: Document 01/26/22 09:06 RUFINO (Rec: 01/26/22 09:55 [facility] [id number]) Physical Therapy Assessment Rehab Potential Rehabilitation Potential Good Evaluation Complexity Number of Personal Factors/Comorbidities 1-2 Number of Body Systems Impaired 3 Impairments Impairments Activity Tolerance,Functional Mobility,Gait,Pain,Strength Goals no HEP Impairment not currently doing any exercises Short Term Goal (STG) Patient to be instructed in progressive HEP for strengthening, balance, gait STG Duration 03/03/22 Pediatric Nephrologist Goal (LTG) Patient to be independent and compliant with HEP to help her return to her prior level of fucntion LTG Duration 04/26/22 gait dysfunciton Impairment antalgic gait, uses single point cane, only sanjuanita short distances Impairment step-to pattern descending stairs Short Term Goal (STG) Patient able to ambulate with cane without limp all household and short distance community without assistance STG Duration 03/03/22 Care Home Goal (LTG) Patient able to descend stairs using railing with alternating pattern LTG Duration 04/26/22 weakness Impairment weakness left LE throughout, lacks antigravity strength hip Impairment difficulty with mobility including in/out of bed, sit to stand Short Term Goal (STG) Improve functional strength as evidenced by patient able to get in and out of bed without difficulty or assistance. STG Duration 02/23/22 Care Home Goal (LTG) Improve left LE strenth to at least 4+/5, patient able to move sit to stand 10x in a row without use of hands as evidence of improved functional strength LTG Duration 04/26/22 pain left LE Impairment 01/09 left LE with LEFS 21% Impairment limits patient mobility Short Term Goal (STG) decrease pain to no greater than 4/10 with all usual activities STG Duration 02/23/22 Pediatric Nephrologist Goal (LTG) Patient to report decrease in pain to no greater than 2/10 to allow her to return to her prior level of function including taking walks at [place]. Improve LEFS to at least 75%. LTG Duration 04/26/22 Assessment Summary Assessment Patient presents with function limiting pain and weakness in her left LE, started August 2021 unknown reason but patient has had 2 falls since then. Has gained weight and activity level has gradually declined. Also has N/T bilateral feet which has come on since August as well, negative for DM, appears possible nerve compression. She has moderate left LE weakness, gait dysfunction, decreased activity tolerance, tenderness to palpation and tightness IT band, decreased hamstring flexibility, core weakness. Would benefit from PT to decrease her pain, improve her flexibility and strength, improve her activity level, and help her return to her prior level of function Physical Therapy Plan Frequency and Duration Frequency of Treatment 2x/Week Duration of Treatment 12 weeks Plan of Care Start Date 01/26/22 Plan of Care End Date 04/26/22 Therapeutic Interventions Therapeutic Interventions Aquatic Therapy,Gait Training, Home Exercise Program,Manual Therapy,Neuromuscular Re- education,Patient/Caregiver Education,Self-Care/Home Management,Soft Tissue Mobilization,Taping, Therapeutic Activities, Therapeutic Exercises Next Visit Focus/Plan Next Note Type Treatment Note Next Visit Plan Start with recumbent elliptical, review HEP, gentle strengthening as tolerated. Consider manual treatment to IT band and manual lumbar traction. Plan of Care Dates Plan of Care Start Date 01/26/22 Plan of Care End Date 04/26/22 Electronically Signed by: Aurea Gonzalez, PT 01/30/22 0851 If you are in agreement with this Plan of Care, please return a signed and dated copy. I have reviewed this Plan of Care and certify that the skilled therapy services above are required to meet the patient?s needs. Physician Signature Date Printed Name and Credentials Clinical Instructor Signature Printed Name and Credentials
--- NOTE | 2022-01-26 16:00 | PT.OIE ---
Current Diagnoses Iliotibial band syndrome, left leg (01/26/22) Difficulty in walking, not elsewhere classified (01/26/22) Dizziness and giddiness (01/26/22) Weakness (01/26/22) Past Medical History (Last Reviewed 11/24/21 @ 16:38 by Nicole Ware PA-C) Anemia Asthma Atrial fibrillation by electrocardiography Bullous pemphigoid (~10/2019) Chickenpox Cholelithiasis Chronic kidney disease (CKD) stage G2/A1, mildly decreased glomerular filtration rate (GFR) between 60-89 mL/min/1.73 square meter and albuminuria creatinine ratio less than 30 mg/g (09/06/17) Chronic obstructive pulmonary disease (10/19/16) Class 1 obesity (09/05/16) Diverticulosis of colon (~12/2020) Eczema Environmental allergies (09/05/16) Fatigue due to sleep pattern disturbance Hepatitis B core antibody positive History of torn meniscus of right knee Hyperlipidemia (01/25/11) Hypertension (01/25/11) Hypothyroidism (~2007) Insomnia due to medical condition Measles Morbid obesity with body mass index (BMI) of 40.0 to 49.9 Osteoarthritis (01/25/11) Pacemaker (~05/2021) Pedal edema Persistent atrial fibrillation Pulmonary nodules/lesions, multiple Recurrent sinusitis (~1999) Seasonal allergies Sigmoid diverticulosis Snoring Past Surgical History (Last Reviewed 11/24/21 @ 16:38 by Nicole Ware PA-C) Anesthesia History of foot surgery History of hip replacement (~2010) History of hip replacement (~2012) History of radiofrequency ablation procedure for cardiac arrhythmia (~07/2019) Polyp of nasal sinus Status post hysterectomy with oophorectomy (~1996) Visit Care Team Role Provider Type Brent Dumont MD Attending Provider Physician Family Provider Primary Care Provider Referring Provider Specialty: Internal Medicine Address: [address] [place] [address], [address] [place] [address], [id number] Email: [email or web address] Physical Therapy Initial Evaluation PT-OP-A Visit Information Start: 01/26/22 09:04 Freq: Status: Active Protocol: Document 01/26/22 09:06 RUFINO (Rec: 01/26/22 09:55 [facility] [id number]) Out-Patient Physical Therapy Visit Information Visit Information Visit Type Initial Evaluation Visit Start Time 09:05 Visit Stop Time 09:50 Total Visit Minutes 45 Visit Number 1 PT-OP-B Current Condition Start: 01/26/22 09:04 Freq: Status: Active Protocol: Document 01/26/22 09:06 [facility] (Rec: 01/26/22 09:55 [facility] [id number]) Current Condition History of Current Condition Onset Date August 2021 Current Complaints Wa History of Current Condition August 2020 started getting weaker, iron level going down. May 03 pacemaker surgery, got even weaker, couldn't walk, passed out 1x. Fell 1 other time at [employer]. Did iron infusions, had pulmonary embolisms. Is on a blood thinner but had to go off for pacemaker surgery. Has walker and cane, holds onto when using cane. Takes immune suppressant due to autoimmune disorder. Has stairs at home, alternates legs ascending, step-to descending with railing. Unable to get up from chair without hands. No grab bars at home. Going to wound care for left LE wound. Arms hurting from using them for mobility. Increase in weight due to lack of activity. Uncertain cause of left LE pain which has come on during all her medical complications. Has history bertram CHANCE approx 2007 and 2009. N/T bilateral feet Prior Treatments and Tests x-ray: arthritis Future Testing and Treatments Planned unsure of next physician appointment. Treatment Goals Patient/Caregiver Goals Be able to go for a walk [place], improve strength, be able to play withShop[employer]ocket[employer]. Prior Functional Status Baseline Function- ADL's Independent Baseline Function- Mobility Independent Baseline Function- Gait no pain, no device Baseline Function- Work/School retired from [employer] Baseline Function- Recreation/Hobbies quilting Current Functional Impairments (Reported) Functional Limitations- ADL's painful Functional Limitations- Mobility/Gait painful, uses single point cane Functional Limitations- Recreation/ able to quilt, unable to take Hobbies walks PT-OP-C Subjective Start: 01/26/22 09:04 Freq: Status: Active Protocol: Document 01/26/22 09:06 [facility] (Rec: 01/30/22 08:48 [facility] [id number]) Patient Questionnaires Lower Extremity Functional Scale LEFS Score 21 OP-PT Pain Assessment Location left LE Intensity 7 Scale Used Numeric (0 - 10) Description Aching,Burning,Chronic,Tender Frequency Frequent PT-OP-D Balance Start: 01/26/22 09:04 Freq: Status: Active Protocol: Document 01/26/22 09:06 [facility] (Rec: 01/30/22 08:48 [facility] [id number]) Monteiro Balance Assessment Evaluation Sitting to Standing Ability Independent w/Hands Unsupported Stance Supervision- 2 minutes Sitting Unsupported, Feet on Floor Safely- 2 minutes Standing to Sitting Ability Assist, Use Legs on Chair Transfer Ability Safely, Hand Use Unsupported Stance- Eyes Closed Supervision, 10 seconds Unsupported Stance- Eyes Open Supervision to maintain Reaching Forward Standing Safely, 5 inches Pick- Up Object From Floor Independent/Safe Look Behind Shoulder - Standing Shifts Weight Unilateral Turning 360 Degrees Turns slowly, but safely Unsupported Stance, Alternating Feet on (I)- 8 Steps in > 20 secs Stair Unsupported Tandem Stance Balance Lost- Step/Stand Unilateral Leg Stance Lifts Leg/Unable to Hold Total Score Monteiro Total Score (out of 56 points) 37 PT-OP-G Mobility & Gait Start: 01/26/22 09:04 Freq: Status: Active Protocol: Document 01/26/22 09:06 [facility] (Rec: 01/30/22 08:48 [facility] [id number]) OP Gait Assessment Gait Gait Assistance Required: Independent Assistive Devices Assistive Device Front Wheeled Walker Gait Deviations General Gait Pattern Decreased Stride Length, Decreased Feet Clearance,Wide Based Gait Factors Limiting Gait Function Factors Limiting Gait Function Decreased Strength PT-OP-H Neuro Start: 01/26/22 09:04 Freq: Status: Active Protocol: Document 01/26/22 09:06 [facility] (Rec: 01/30/22 08:48 [facility] [id number]) Sensation Evaluation Gross Sensation Gross Sensation WNL PT-OP-J Posture/Palpation/Skin Start: 01/26/22 09:04 Freq: Status: Active Protocol: Document 01/26/22 09:06 [facility] (Rec: 01/30/22 08:48 [facility] [id number]) Posture Evaluation Position Standing Head/C-Spine Posture Forward Head Shoulder Posture (L) Rounded,(R) Rounded Scapula Posture (L) Protracted,(R) Protracted Arm Posture (L) Internally Rotated,(R) Internally Rotated PT-OP-K Range of Motion Start: 01/26/22 09:04 Freq: Status: Active Protocol: Document 01/26/22 09:06 [facility] (Rec: 01/30/22 08:48 [facility] [id number]) Hip Goniometric Range of Motion Hip ROM Limitations Hip ROM Limitations Soft Tissue Tightness Comments bertram IT band left greater than right, bertram quads, bertram hip flex , bertram hamstrings; all left greater than right Knee Goniometric Range of Motion Knee bertram Knee ROM WFL Yes Ankle and Foot Goniometric Range of Motion Ankle and Foot ROM Limitations ROM Limitations Soft Tissue Tightness Comments mod gastroc tightness bertram left greater than right PT-OP-M Strength Start: 01/26/22 09:04 Freq: Status: Active Protocol: Document 01/26/22 09:06 [facility] (Rec: 01/30/22 08:48 [facility] [id number]) Hip Strength Hip Manual Muscle Testing Left Flexion (L2) 4- Good- Extension (S1) 3+ Fair+ Abduction 3+ Fair+ Adduction 4 Good External Rotation 3+ Fair+ Internal Rotation 4 Good Right Flexion (L2) 4 Good Extension (S1) 3+ Fair+ Abduction 4- Good- Adduction 4 Good External Rotation 4- Good- Internal Rotation 4 Good Ankle/Foot Strength Ankle and Foot Manual Muscle Testing Left Dorsiflexion (L4) 4 Good Plantarflexion (S1) 4 Good Right Dorsiflexion (L4) 4+ Good+ Plantarflexion (S1) 4+ Good+ PT-OP-Q Treatments Start: 01/26/22 09:04 Freq: Status: Active Protocol: Document 01/26/22 09:06 [facility] (Rec: 01/30/22 08:48 [facility] [id number]) Self-Care/Home Management Treatment Education Patient Education Home Exercise Program,Pain Management,Posture PT-OP-T Assessment and Plan Start: 01/26/22 09:04 Freq: Status: Active Protocol: Document 01/26/22 09:06 [facility] (Rec: 01/26/22 09:55 [facility] [id number]) Physical Therapy Assessment Rehab Potential Rehabilitation Potential Good Evaluation Complexity Number of Personal Factors/Comorbidities 1-2 Number of Body Systems Impaired 3 Impairments Impairments Activity Tolerance,Functional Mobility,Gait,Pain,Strength Goals no HEP Impairment not currently doing any exercises Short Term Goal (STG) Patient to be instructed in progressive HEP for strengthening, balance, gait STG Duration 03/03/22 Usps Letter Carrier Goal (LTG) Patient to be independent and compliant with HEP to help her return to her prior level of fucntion LTG Duration 04/26/22 gait dysfunciton Impairment antalgic gait, uses single point cane, only sanjuanita short distances Impairment step-to pattern descending stairs Short Term Goal (STG) Patient able to ambulate with cane without limp all household and short distance community without assistance STG Duration 03/03/22 Usps Letter Carrier Goal (LTG) Patient able to descend stairs using railing with alternating pattern LTG Duration 04/26/22 weakness Impairment weakness left LE throughout, lacks antigravity strength hip Impairment difficulty with mobility including in/out of bed, sit to stand Short Term Goal (STG) Improve functional strength as evidenced by patient able to get in and out of bed without difficulty or assistance. STG Duration 02/23/22 Us[employer] Letter Carrier Goal (LTG) Improve left LE strenth to at least 4+/5, patient able to move sit to stand 10x in a row without use of hands as evidence of improved functional strength LTG Duration 04/26/22 pain left LE Impairment 7/10 left LE with LEFS 21% Impairment limits patient mobility Short Term Goal (STG) decrease pain to no greater than 4/10 with all usual activities STG Duration 02/23/22 Prison Goal (LTG) Patient to report decrease in pain to no greater than 2/10 to allow her to return to her prior level of function including taking walks at [facility]. Improve LEFS to at least 75%. LTG Duration 04/26/22 Assessment Summary Assessment Patient presents with function limiting pain and weakness in her left LE, started August 2021 unknown reason but patient has had 2 falls since then. Has gained weight and activity level has gradually declined. Also has N/T bilateral feet which has come on since August as well, negative for DM, appears possible nerve compression. She has moderate left LE weakness, gait dysfunction, decreased activity tolerance, tenderness to palpation and tightness IT band, decreased hamstring flexibility, core weakness. Would benefit from PT to decrease her pain, improve her flexibility and strength, improve her activity level, and help her return to her prior level of function Physical Therapy Plan Frequency and Duration Frequency of Treatment 2x/Week Duration of Treatment 12 weeks Plan of Care Start Date 01/26/22 Plan of Care End Date 04/26/22 Therapeutic Interventions Therapeutic Interventions Aquatic Therapy,Gait Training, Home Exercise Program,Manual Therapy,Neuromuscular Re- education,Patient/Caregiver Education,Self-Care/Home Management,Soft Tissue Mobilization,Taping, Therapeutic Activities, Therapeutic Exercises Next Visit Focus/Plan Next Note Type Treatment Note Next Visit Plan Start with recumbent elliptical, review HEP, gentle strengthening as tolerated. Consider manual treatment to IT band and manual lumbar traction.
--- NOTE | 2022-01-31 08:04 | PT-OP ANOTE ---
cancelled due to hurting leg other than one being treated over the weekend.
--- NOTE | 2022-02-03 16:38 | PT.OTN ---
Current Diagnoses Iliotibial band syndrome, left leg (02/03/22) Difficulty in walking, not elsewhere classified (02/03/22) Dizziness and giddiness (02/03/22) Weakness (02/03/22) Physical Therapy Treatment Note PT-OP-A Visit Information Start: 01/26/22 09:04 Freq: Status: Active Protocol: Document 02/03/22 10:30 [facility] (Rec: 02/03/22 11:17 [facility] [id number]) Out-Patient Physical Therapy Visit Information Visit Information Visit Type Treatment Note Visit Start Time 10:30 Visit Stop Time 11:25 Total Visit Minutes 55 Visit Number 2 PT-OP-B Current Condition Start: 01/26/22 09:04 Freq: Status: Active Protocol: Document 02/03/22 10:30 [facility] (Rec: 02/03/22 11:17 [facility] [id number]) Current Condition Treatment Goals Patient/Caregiver Goals Be able to go for a walk [place], improve strength, be able to play withBohemian Guitarsdchildren. PT-OP-C Subjective Start: 01/26/22 09:04 Freq: Status: Active Protocol: Document 02/03/22 10:30 [facility] (Rec: 02/03/22 11:17 [facility] [id number]) OP-PT Subjective Patient Comments Patient Comments Dizziness improving, comes and goes. Standing for a long time at [facility], right knee hurt and swollen possibly due to favoring left LE. PT-OP-D Balance Start: 01/26/22 09:04 Freq: Status: Active Protocol: Document 01/26/22 09:06 [facility] (Rec: 01/30/22 08:48 [facility] [id number]) Monteiro Balance Assessment Evaluation Sitting to Standing Ability Independent w/Hands Unsupported Stance Supervision- 2 minutes Sitting Unsupported, Feet on Floor Safely- 2 minutes Standing to Sitting Ability Assist, Use Legs on Chair Transfer Ability Safely, Hand Use Unsupported Stance- Eyes Closed Supervision, 10 seconds Unsupported Stance- Eyes Open Supervision to maintain Reaching Forward Standing Safely, 5 inches Pick- Up Object From Floor Independent/Safe Look Behind Shoulder - Standing Shifts Weight Unilateral Turning 360 Degrees Turns slowly, but safely Unsupported Stance, Alternating Feet on (I)- 8 Steps in > 20 secs Stair Unsupported Tandem Stance Balance Lost- Step/Stand Unilateral Leg Stance Lifts Leg/Unable to Hold Total Score Monteiro Total Score (out of 56 points) 37 PT-OP-G Mobility & Gait Start: 01/26/22 09:04 Freq: Status: Active Protocol: Document 01/26/22 09:06 [facility] (Rec: 01/30/22 08:48 [facility] [id number]) OP Gait Assessment Gait Gait Assistance Required: Independent Assistive Devices Assistive Device Front Wheeled Walker Gait Deviations General Gait Pattern Decreased Stride Length, Decreased Feet Clearance,Wide Based Gait Factors Limiting Gait Function Factors Limiting Gait Function Decreased Strength PT-OP-H Neuro Start: 01/26/22 09:04 Freq: Status: Active Protocol: Document 01/26/22 09:06 [facility] (Rec: 01/30/22 08:48 [facility] [id number]) Sensation Evaluation Gross Sensation Gross Sensation WNL PT-OP-J Posture/Palpation/Skin Start: 01/26/22 09:04 Freq: Status: Active Protocol: Document 01/26/22 09:06 [facility] (Rec: 01/30/22 08:48 [facility] [id number]) Posture Evaluation Position Standing Head/C-Spine Posture Forward Head Shoulder Posture (L) Rounded,(R) Rounded Scapula Posture (L) Protracted,(R) Protracted Arm Posture (L) Internally Rotated,(R) Internally Rotated PT-OP-K Range of Motion Start: 01/26/22 09:04 Freq: Status: Active Protocol: Document 01/26/22 09:06 [facility] (Rec: 01/30/22 08:48 [facility] [id number]) Hip Goniometric Range of Motion Hip ROM Limitations Hip ROM Limitations Soft Tissue Tightness Comments bertram IT band left greater than right, bertram quads, bertram hip flex , bertram hamstrings; all left greater than right Knee Goniometric Range of Motion Knee bertram Knee ROM WFL Yes Ankle and Foot Goniometric Range of Motion Ankle and Foot ROM Limitations ROM Limitations Soft Tissue Tightness Comments mod gastroc tightness bertram left greater than right PT-OP-M Strength Start: 01/26/22 09:04 Freq: Status: Active Protocol: Document 01/26/22 09:06 [facility] (Rec: 01/30/22 08:48 [facility] [id number]) Hip Strength Hip Manual Muscle Testing Left Flexion (L2) 4- Good- Extension (S1) 3+ Fair+ Abduction 3+ Fair+ Adduction 4 Good External Rotation 3+ Fair+ Internal Rotation 4 Good Right Flexion (L2) 4 Good Extension (S1) 3+ Fair+ Abduction 4- Good- Adduction 4 Good External Rotation 4- Good- Internal Rotation 4 Good Ankle/Foot Strength Ankle and Foot Manual Muscle Testing Left Dorsiflexion (L4) 4 Good Plantarflexion (S1) 4 Good Right Dorsiflexion (L4) 4+ Good+ Plantarflexion (S1) 4+ Good+ PT-OP-Q Treatments Start: 01/26/22 09:04 Freq: Status: Active Protocol: Document 02/03/22 10:30 [facility] (Rec: 02/03/22 11:17 [facility] [id number]) Cardio Equipment Recumbent Stepper (Sci-Fit) Duration (Minutes) 6 Resistance 1 Seat Position 11 Therapeutic Exercises Sitting Exercises sit to stand Reps/Minutes 1x Comments cues for goal of 10x without UE support LAQ Reps/Minutes 10x hamstring stretch Reps/Minutes 2x30 gluteal set Reps/Minutes 5x seated clam Resistance L2 Reps/Minutes 10x ball squeeze Reps/Minutes 10x TrA Reps/Minutes 5x Gait Training Gait Activity 1 Device Used [employer] Level of Assistance CGA, cues for correct use, sequencing Surface firm Distance/Duration 50 ft Treatment Focus correct fit and use, safety Self-Care/Home Management Treatment Education Patient Education Home Exercise Program,Pain Management,Posture Other Education updated written HEP with LAQ and sit to stand PT-OP-R Modalities Start: 01/26/22 09:04 Freq: Status: Active Protocol: Document 02/03/22 10:30 [facility] (Rec: 02/03/22 16:37 [facility] [id number]) Hot Pack/Cold Pack Treatment Cold Pack Location bilateral knees Patient Position Hooklying Treatment Duration (minutes) 10 Patient Tolerance Good PT-OP-T Assessment and Plan Start: 01/26/22 09:04 Freq: Status: Active Protocol: Document 02/03/22 10:30 [facility] (Rec: 02/03/22 11:17 [facility] [id number]) Physical Therapy Assessment Goals no HEP Impairment not currently doing any exercises Short Term Goal (STG) Patient to be instructed in progressive HEP for strengthening, balance, gait STG Duration 03/03/22 Shutdown Planner Goal (LTG) Patient to be independent and compliant with HEP to help her return to her prior level of fucntion LTG Duration 04/26/22 gait dysfunciton Impairment antalgic gait, uses single point cane, only sanju[place]ita short distances Impairment step-to pattern descending stairs Short Term Goal (STG) Patient able to ambulate with cane without limp all household and short distance community without assistance STG Duration 03/03/22 [facility] Goal (LTG) Patient able to descend stairs using railing with alternating pattern LTG Duration 04/26/22 weakness Impairment weakness left LE throughout, lacks antigravity strength hip Impairment difficulty with mobility including in/out of bed, sit to stand Short Term Goal (STG) Improve functional strength as evidenced by patient able to get in and out of bed without difficulty or assistance. STG Duration 02/23/22 Fpc Goal (LTG) Improve left LE strenth to at least 4+/5, patient able to move sit to stand 10x in a row without use of hands as evidence of improved functional strength LTG Duration 04/26/22 pain left LE Impairment 7/10 left LE with LEFS 21% Impairment limits patient mobility Short Term Goal (STG) decrease pain to no greater than 4/10 with all usual activities STG Duration 02/23/22 Shutdown Planner Goal (LTG) Patient to report decrease in pain to no greater than 2/10 to allow her to return to her prior level of function including taking walks at [facility]. Improve LEFS to at least 75%. LTG Duration 04/26/22 Assessment Summary Assessment Fair tolerance for gentle ther ex today. Patient has low activity tolerance. Cues for core activation prior to performing all ther ex with good understanding verbalized. Instructed in use of trekking poles for possible use instead of cane at times, especially outdoors; good understanding demonstrated after instruction, needs further practice. Physical Therapy Plan Frequency and Duration Frequency of Treatment 2x/Week Duration of Treatment 12 weeks Plan of Care Start Date 01/26/22 Plan of Care End Date 04/26/22 Therapeutic Interventions Therapeutic Interventions Aquatic Therapy,Gait Training, Home Exercise Program,Manual Therapy,Neuromuscular Re- education,Patient/Caregiver Education,Self-Care/Home Management,Soft Tissue Mobilization,Taping, Therapeutic Activities, Therapeutic Exercises Next Visit Focus/Plan Next Note Type Treatment Note Next Visit Plan Continue PT per POC with emphasis on strengthening. Consider manual treatment to IT band and manual lumbar traction depending on pain. Modalities as needed.
--- NOTE | 2022-02-07 08:02 | PT-OP ANOTE ---
cancelled PT due to in hospital with cellulitis 02/05-02/06/22
--- NOTE | 2022-02-15 18:09 | PT.OPDS ---
Current Diagnoses Iliotibial band syndrome, left leg (02/03/22) Difficulty in walking, not elsewhere classified (02/03/22) Dizziness and giddiness (02/03/22) Weakness (02/03/22) Visit Care Team Role Provider Type Brent Dumont MD Attending Provider Physician Family Provider Primary Care Provider Referring Provider Specialty: Internal Medicine Address: [address] [place] [address], [facility] Email: [email or web address] Visit Number Visit Number 2 Discharge Summary PT-OP-B Current Condition Start: 01/26/22 09:04 Freq: Status: Active Protocol: Document 02/03/22 10:30 SAK (Rec: 02/03/22 11:17 [facility] [id number]) Current Condition Treatment Goals Patient/Caregiver Goals Be able to go for a walk around [employer], improve strength, be able to play with[employer]. PT-OP-C Subjective Start: 01/26/22 09:04 Freq: Status: Active Protocol: Document 02/03/22 10:30 SAK (Rec: 02/03/22 11:17 [facility] [id number]) OP-PT Subjective Patient Comments Patient Comments Dizziness improving, comes and goes. Standing for a long time at [facility], right knee hurt and swollen possibly due to favoring left LE. PT-OP-D Balance Start: 01/26/22 09:04 Freq: Status: Active Protocol: Document 01/26/22 09:06 SAK (Rec: 01/30/22 08:48 [facility] [id number]) [place] Balance Assessment Evaluation Sitting to Standing Ability Independent w/Hands Unsupported Stance Supervision- 2 minutes Sitting Unsupported, Feet on Floor Safely- 2 minutes Standing to Sitting Ability Assist, Use Legs on Chair Transfer Ability Safely, Hand Use Unsupported Stance- Eyes Closed Supervision, 10 seconds Unsupported Stance- Eyes Open Supervision to maintain Reaching Forward Standing Safely, 5 inches Pick- Up Object From Floor Independent/Safe Look Behind Shoulder - Standing Shifts Weight Unilateral Turning 360 Degrees Turns slowly, but safely Unsupported Stance, Alternating Feet on (I)- 8 Steps in > 20 secs Stair Unsupported Tandem Stance Balance Lost- Step/Stand Unilateral Leg Stance Lifts Leg/Unable to Hold Total Score Monteiro Total Score (out of 56 points) 37 PT-OP-G Mobility & Gait Start: 01/26/22 09:04 Freq: Status: Active Protocol: Document 01/26/22 09:06 [facility] (Rec: 01/30/22 08:48 [facility] [id number]) OP Gait Assessment Gait Gait Assistance Required: Independent Assistive Devices Assistive Device Front Wheeled Walker Gait Deviations General Gait Pattern Decreased Stride Length, Decreased Feet Clearance,Wide Based Gait Factors Limiting Gait Function Factors Limiting Gait Function Decreased Strength PT-OP-H Neuro Start: 01/26/22 09:04 Freq: Status: Active Protocol: Document 01/26/22 09:06 [facility] (Rec: 01/30/22 08:48 [facility] [id number]) Sensation Evaluation Gross Sensation Gross Sensation WNL PT-OP-J Posture/Palpation/Skin Start: 01/26/22 09:04 Freq: Status: Active Protocol: Document 01/26/22 09:06 [facility] (Rec: 01/30/22 08:48 [facility] [id number]) Posture Evaluation Position Standing Head/C-Spine Posture Forward Head Shoulder Posture (L) Rounded,(R) Rounded Scapula Posture (L) Protracted,(R) Protracted Arm Posture (L) Internally Rotated,(R) Internally Rotated PT-OP-K Range of Motion Start: 01/26/22 09:04 Freq: Status: Active Protocol: Document 01/26/22 09:06 [facility] (Rec: 01/30/22 08:48 [facility] [id number]) Hip Goniometric Range of Motion Hip ROM Limitations Hip ROM Limitations Soft Tissue Tightness Comments bertram IT band left greater than right, bertram quads, bertram hip flex , bertram hamstrings; all left greater than right Knee Goniometric Range of Motion Knee bertram Knee ROM WFL Yes Ankle and Foot Goniometric Range of Motion Ankle and Foot ROM Limitations ROM Limitations Soft Tissue Tightness Comments mod gastroc tightness bertram left greater than right PT-OP-M Strength Start: 01/26/22 09:04 Freq: Status: Active Protocol: Document 01/26/22 09:06 [facility] (Rec: 01/30/22 08:48 [facility] [id number]) Hip Strength Hip Manual Muscle Testing Left Flexion (L2) 4- Good- Extension (S1) 3+ Fair+ Abduction 3+ Fair+ Adduction 4 Good External Rotation 3+ Fair+ Internal Rotation 4 Good Right Flexion (L2) 4 Good Extension (S1) 3+ Fair+ Abduction 4- Good- Adduction 4 Good External Rotation 4- Good- Internal Rotation 4 Good Ankle/Foot Strength Ankle and Foot Manual Muscle Testing Left Dorsiflexion (L4) 4 Good Plantarflexion (S1) 4 Good Right Dorsiflexion (L4) 4+ Good+ Plantarflexion (S1) 4+ Good+ PT-OP-T Assessment and Plan Start: 01/26/22 09:04 Freq: Status: Active Protocol: Document 02/15/22 18:08 [facility] (Rec: 02/15/22 18:08 [facility] [id number]) Physical Therapy Plan Discharge Physical Therapy Discharge Reasons Change in Medical Status
== END 2022-02-21 09:39 ==
LOC: PHYS 10:30
PROVIDERS: Family Provider Student in an Organized Health Care Education/Training Program; PCP Student in an Organized Health Care Education/Training Program; Referring Provider Student in an Organized Health Care Education/Training Program; Visit Provider Student in an Organized Health Care Education/Training Program
DX: M76.32 Iliotibial band syndrome, left leg (principal); R42 Dizziness and giddiness; R26.2 Difficulty in walking, not elsewhere classified; R53.1 Weakness
CPT/HCPCS: 97110; 97116; 97162; 97535

== ENCOUNTER 2022-02-05 17:26 | Observation (INO) | payer MEDICARE, SELFPAY ==
[2021-11-23 16:13] VITALS: BMI 43.1
[2022-02-05] VITALS (17 sets, daily range): BP systolic 147–179; BP diastolic 64–110; PULSE 70–77; RESP 17–31; TEMP 36.1–36.9; O2SAT 91–100; BMI 39.1; BMI 39.4
[2022-02-05 18:50] LABS: Add Manual Diff / Slide Review NO; Basophils Absolute Auto 100 /uL (0-100); Basophils Percent Auto 0.4 % (0-2); Eosinophils Absolute Auto 100 /uL (0-450); Eosinophils Percent Auto 0.4 % (2-4); Hematocrit 40.7 % (36-46); Hemoglobin 13.3 g/dL (12.0-16.0); Lymphocytes Absolute Auto 900 /uL (1100-4500); Lymphocytes Percent Auto 5.4 % (25-40); Mean Corpuscular HGB Conc 32.8 % (30-36); Mean Corpuscular Hemoglobin 28.5 PG (26-34); Mean Corpuscular Volume 86.9 fL (80-100); Monocytes Absolute Auto 1500 /uL (0-900); Monocytes Percent Auto 9.4 % (3-14); Neutrophils Absolute Auto 13900 /uL (1500-7000); Neutrophils Percent Auto 84.4 % (50-75); Platelet Count 190 X10^3/uL (150-400); Red Blood Cell Count 4.69 X10^6/uL (4.0-5.2); Red Cell Distribution Width 14.3 % (11.6-14.8); White Blood Cell Count 16.5 X10^3/uL (4.5-11.0)
[2022-02-05 18:59] LABS: Alanine Aminotransferase 9 IU/L (<35); Albumin 3.6 g/dL (3.5-5.0); Albumin Globulin Ratio 1.2 (1.0-2.8); Alkaline Phosphatase 110 U/L (38-126); Aspartate Aminotransferase 16 IU/L (14-36); BUN Creatinine Ratio 22.1 (6-22); Bilirubin Total 1.1 mg/dL (0.2-1.3); Blood Urea Nitrogen 19 mg/dL (7-17); Calcium 8.7 mg/dL (8.4-10.2); Carbon Dioxide 27 mmol/L (22-32); Chloride 100 mmol/L (98-107); Estimated Glomerular Filt Rate > 60 mL/min (>60); Glucose 104 mg/dL (80-110); HEMOLYSIS < 15 (0-50); Magnesium 1.7 mg/dL (1.6-2.3); Potassium 3.5 mmol/L (3.4-5.1); Sodium 136 mmol/L (137-145); Total Protein 6.6 g/dL (6.3-8.2)
--- NOTE | 2022-02-05 19:06 | ED.WOUNDLAC ---
HPI - Wound/Laceration General Chief Complaint: Wound/Laceration Stated Complaint: LEFT LEG HOT, SORE, SWOLLEN Time Seen by Provider: 02/05/22 17:47 Source: patient and family Mode of arrival: Wheelchair History of Present Illness HPI narrative: 71-year-old female former smoker with history of pacemaker, CHF, atrial fibrillation, anticoagulation, bolus pemphigoid and chronic wounds on left lower extremity managed by wound care presents due to a rapid progression of pain, redness and swelling on her left lower extremity. She had been previously treated for cellulitis and had been doing well but had symptoms return rather quickly over the past day or 2. She denies any fever or chills nor nausea or vomiting. She has no chest pain or shortness of breath. She denies any recent procedures on her leg and has not been on antibiotics recently. Related Data Home Medications Medication Instructions Recorded Confirmed cyanocobalamin (vitamin B-12) 1,000 mcg PO DAILY ##0 08/05/16 01/27/22 1,000 mcg tablet,extended release omeprazole magnesium 20 mg 20 mg PO DAILY 06/07/18 01/27/22 tablet,delayed release (Prilosec OTC) losartan 50 mg tablet 50 mg PO DAILY 12/25/18 01/27/22 calcium carb-vit D3-magnesium 250 2 cap PO DAILY 11/04/20 01/27/22 mg-200 unit-125 mg capsule flecainide 50 mg tablet 100 mg PO BID 06/14/21 01/27/22 doxepin 10 mg capsule 10 mg PO BEDTIME 07/07/21 01/27/22 metoprolol succinate 50 mg 100 mg PO BID 07/07/21 01/27/22 tablet,extended release 24 hr potassium chloride 10 mEq 10 meq PO BEDTIME 07/07/21 01/27/22 tablet,extended release(part/cryst) ferrous sulfate 325 mg (65 mg 325 mg PO DAILY 08/18/21 01/27/22 iron) tablet mycophenolate mofetil 200 mg/mL 1,000 mg PO BID 11/25/21 01/27/22 oral suspension (CellCept) Previous Rx's Medication Instructions Recorded albuterol sulfate 90 mcg/actuation 2 - 4 puff inhalation Q4H PRN 04/08/20 aerosol inhaler (Ventolin HFA) Shortness Of Breath #8.5 grams fluticasone furoate 100 See Rx Instructions .Route 05/11/21 mcg-vilanterol 25 mcg/dose .COMPLEX #180 ea inhalation powder (Breo Ellipta) torsemide 5 mg tablet 2.5 mg PO DAILY #30 tabs 09/22/21 pramipexole 0.125 mg tablet 0.125 mg PO BEDTIME #90 tabs 11/05/21 gabapentin 600 mg tablet See Rx Instructions .Route 11/26/21 .COMPLEX #90 tabs atorvastatin 10 mg tablet See Rx Instructions .Route 12/09/21 .COMPLEX #90 tabs tramadol 50 mg tablet 50 mg PO TID PRN severe pain #60 12/13/21 tabs levothyroxine 75 mcg tablet See Rx Instructions .Route 12/27/21 .COMPLEX #90 tabs apixaban 5 mg tablet (Eliquis) 5 mg PO BID #120 tabs 12/29/21 Allergies Allergy/AdvReac Type Severity Reaction Status Date / Time No Known Drug Allergies Allergy Verified 01/27/22 11:07 Review of Systems Review of Systems Narrative: GENERAL: Denies chills, fatigue, malaise, fever, sweats. HEENT: Denies sinus pain, ear pain, sore throat, difficulty swallowing, dizziness. RESPIRATORY: Denies dyspnea, cough, wheezing, hemoptysis, sputum. CARDIOVASCULAR: Denies chest pain, palpitations, orthopnea, edema, GASTROINTESTINAL: Denies nausea, vomiting, abdominal pain, diarrhea, constipation, melena. : Denies dysuria, frequency, incontinence, hematuria, urinary retention. MUSCULOSKELETAL: See HPI SKIN: See HPI NEUROLOGIC: Denies weakness, headache, numbness, change in speech, confusion, seizures, incoordination. PSYCHIATRIC: No concerning psychosocial issues. 12 point review of systems is negative except for those stated above Patient History Medical History Anemia Asthma Atrial fibrillation by electrocardiography Bullous pemphigoid (~10/2019) Chickenpox Cholelithiasis Chronic kidney disease (CKD) stage G2/A1, mildly decreased glomerular filtration rate (GFR) between 60-89 mL/min/1.73 square meter and albuminuria creatinine ratio less than 30 mg/g (09/06/17) Chronic obstructive pulmonary disease (10/19/16) Class 1 obesity (09/05/16) Diverticulosis of colon (~12/2020) Eczema Environmental allergies (09/05/16) Fatigue due to sleep pattern disturbance Hepatitis B core antibody positive History of torn meniscus of right knee Hyperlipidemia (01/25/11) Hypertension (01/25/11) Hypothyroidism (~2007) Insomnia due to medical condition Measles Morbid obesity with body mass index (BMI) of 40.0 to 49.9 Osteoarthritis (01/25/11) Pacemaker (~05/2021) Pedal edema Persistent atrial fibrillation Pulmonary nodules/lesions, multiple Recurrent sinusitis (~1999) Seasonal allergies Sigmoid diverticulosis Snoring Surgical History Anesthesia History of foot surgery History of hip replacement (~2010) History of hip replacement (~2012) History of radiofrequency ablation procedure for cardiac arrhythmia (~07/2019) Polyp of nasal sinus Status post hysterectomy with oophorectomy (~1996) Family History Father Heart disease Hypertension Mother Heart disease Stroke Hypertension Diabetes mellitus Dementia Grandfather Cancer Grandmother No problems noted. Grandfather No problems noted. Grandmother No problems noted. Brother Pacemaker Social History marital status: household members: spouse occupational status: previously employed Smoking Status: Former smoker alcohol intake: current substance use type: does not use Smoking Status: Former smoker alcohol intake frequency: a few times a month Substance Use Type: does not use Exam Narrative Exam Narrative: GENERAL: [71 year old patient appears stated age. Well-developed patient, in mild distress. HEAD: Atraumatic. Normocephalic. EYES: Pupils equal round and reactive. Extraocular motions intact. No scleral icterus. No injection or drainage. ENT: Nose without bleeding, purulent drainage. Throat without erythema, tonsillar hypertrophy or exudate. Airway patent. NECK: Trachea midline. Non tender CARDIOVASCULAR: Regular rate and rhythm without murmurs, gallops, or rubs. RESPIRATORY: Clear to auscultation. Breath sounds equal bilaterally. No wheezes, rales, or rhonchi. GASTROINTESTINAL: Abdomen soft, non-tender, nondistended. EXTREMITIES: Left lower extremity notably swollen with erythema and warmth from the dorsum of the foot extending circumferentially up most of the lower extremity to just below the knee. There are 3 small lesions that had been addressed by Wound Care, 1 of which is actively draining serous fluid, this has been cultured and sent to the lab BACK: Nontender without deformity or crepitance. No flank tenderness. NEURO: AOx3. SKIN: No rash or erythema of visible areas Initial Vital Signs Initial Vital Signs: Vital Signs Temperature 97 F L 02/05/22 17:36 Pulse Rate 70 02/05/22 17:36 Respiratory Rate 18 02/05/22 17:36 Blood Pressure 177/86 H 02/05/22 17:36 Pulse Oximetry 95 02/05/22 17:36 Oxygen Delivery Method 02/05/22 17:36 Course Orders Ordered: ED Orders 02/05/22 18:14 EKG-12 Lead Stat 02/05/22 18:36 Blood Culture Stat Complete Blood Count AUTO DIFF Stat Comprehensive Metabolic Panel Stat Magnesium Stat 02/05/22 21:19 Wound Culture and Gram Stain Stat 02/05/22 21:32 US periph venous low extrem lt Stat 02/05/22 21:40 COVID19 -Nasal RAPID/Pre-Proc Stat Acetaminophen (Acetaminophen 325 Mg Tablet) 650 mg PO Q6HR [facility] Last Admin: 02/06/22 00:36 Dose: 650 mg Documented By: MERA Al Hydrox/Mg Hydrox/Simethicone (Mag Hydrox/Alum/Simeth 30 Ml Udc) 30 ml PO Q6HR PRN PRN Reason: Dyspepsia Apixaban (Apixaban 5 Mg Tablet) 5 mg PO BID [facility] Last Admin: 02/06/22 00:36 Dose: 5 mg Documented By: MERA Atorvastatin Calcium ([facility] 20 Mg [facility] Doxepin HCl (Doxepin 10 Mg Capsule) 10 mg PO BEDTIME [facility] Last Admin: 02/06/22 00:50 Dose: Not Given Documented By: MERA Ferrous Sulfate (Ferrous Sulfate 325 Mg Tablet) 325 mg PO DAILY [facility] Flecainide Acetate (Flecainide 100 Mg Tablet) 100 mg PO BID [facility] Last Admin: 02/06/22 00:50 Dose: Not Given Documented By: Gabapentin (Gabapentin 600 Mg Tablet) 600 mg PO BEDTIME [facility] Last Admin: 02/06/22 00:35 Dose: 600 mg Documented By: Sodium Chloride (Normal Saline 0.9%) 1,000 mls @ 100 mls/hr IV CONT [facility] Last Admin: 02/06/22 00:50 Dose: 100 mls/hr Documented By: MERA Vancomycin HCl/Dextrose (Vancomycin) 2,000 mg in 400 mls @ 200 mls/hr IV Q24H [facility] Levothyroxine Sodium (Levothyroxine 75 Mcg Tablet) 75 mcg PO QACBREAK [facility] Losartan Potassium (Losartan 50 Mg Tablet) 50 mg PO DAILY [facility] Magnesium Hydroxide (Magnesium Hydroxide 30 Ml Udc) 30 ml PO DAILY PRN PRN Reason: Constipation Metoprolol Succinate (Metoprolol Er 50 Mg Tablet) 100 mg PO BID [facility] Last Admin: 02/06/22 00:52 Dose: 100 mg Documented By: MERA Mycophenolate Mofetil (Mycophenolate Mofetil 500 Mg Tablet) 1,000 mg PO BID [facility] Last Admin: 02/06/22 00:36 Dose: 1,000 mg Documented By: MERA Non-Formulary Medication (Fluticasone Furoate-Vilanterol [Breo Ellipta]) 0 mg .ROUTE .COMPLEX [facility] Pantoprazole Sodium (Pantoprazole Dr 20 Mg Tablet) 20 mg PO DAILY [facility] Potassium Chloride (Potassium Chloride 10 Meq Tab) 10 meq PO BEDTIME [facility] Pramipexole Dihydrochloride (Pramipexole 0.125 Mg Tablet) 0.125 mg PO BEDTIME [facility] Last Admin: 02/06/22 00:51 Dose: Not Given Documented By: MERA Torsemide (Torsemide 10 Mg Tablet) 2.5 mg PO DAILY [facility] Tramadol HCl (Tramadol 50 Mg Tablet) 50 mg PO TID PRN PRN Reason: severe pain Vancomycin HCl (Vancomycin Per Pharmacy) 1 request [facility] NOW ONE Stop: 02/06/22 07:53 Discontinued Medications Apixaban (Apixaban 5 Mg Tablet) 5 mg PO BID [facility] Vancomycin HCl/Dextrose (Vancomycin) 2,000 mg in 400 mls @ 200 mls/hr IV NOW ONE Stop: 02/05/22 23:14 Last Infusion: 02/05/22 22:56 Dose: 0 mls/hr Documented By: Admin: 02/05/22 21:20 Dose: 200 mls/hr Documented By: HAILEY Metoprolol Succinate (Metoprolol Er 50 Mg Tablet) 100 mg PO BID [facility] Mycophenolate Mofetil (Mycophenolate Mofetil 500 Mg Tablet) 1,000 mg PO BID [facility] Pramipexole Dihydrochloride (Pramipexole 0.125 Mg Tablet) 0.125 mg PO BEDTIME [facility] Vancomycin HCl (Vancomycin Per Pharmacy) 1 request [facility] NOW ONE Stop: 02/05/22 23:19 Vital Signs Vital signs: Vital Signs - 8 hr 02/05/22 17:36 02/05/22 18:27 02/05/22 18:28 Temperature 97 F L Pulse Rate 70 70 73 Respiratory Rate 18 Blood Pressure 177/86 H Pulse Oximetry 95 100 100 Oxygen Delivery Method Room Air 02/05/22 18:28 02/05/22 18:30 02/05/22 18:30 Temperature Pulse Rate 72 Respiratory Rate 17 Blood Pressure 148/67 H 153/66 H Pulse Oximetry 99 Oxygen Delivery Method 02/05/22 19:00 02/05/22 19:00 02/05/22 19:30 Temperature Pulse Rate 71 Respiratory Rate 18 Blood Pressure 156/67 H 179/110 H Pulse Oximetry 99 Oxygen Delivery Method 02/05/22 19:30 02/05/22 20:00 02/05/22 20:01 Temperature Pulse Rate 77 72 Respiratory Rate 18 19 Blood Pressure 165/69 H Pulse Oximetry 98 97 Oxygen Delivery Method 02/05/22 20:01 02/05/22 20:30 02/05/22 20:31 Temperature Pulse Rate 72 71 70 Respiratory Rate 24 22 20 Blood Pressure Pulse Oximetry 98 98 97 Oxygen Delivery Method 02/05/22 20:31 02/05/22 21:00 02/05/22 21:00 Temperature Pulse Rate 74 Respiratory Rate 25 H Blood Pressure 149/67 H 162/105 H Pulse Oximetry 97 Oxygen Delivery Method 02/05/22 21:30 02/05/22 21:31 02/05/22 21:31 Temperature Pulse Rate 71 75 Respiratory Rate 24 31 H Blood Pressure 160/74 H Pulse Oximetry 98 98 Oxygen Delivery Method 02/05/22 22:00 02/05/22 22:00 Temperature Pulse Rate 70 Respiratory Rate 18 Blood Pressure 176/73 H Pulse Oximetry 99 Oxygen Delivery Method MDM - Wound/Laceration Lab Data Result diagrams: 02/05/22 18:36 02/05/22 18:36 Labs: Lab Results 08/06/22 08/06/22 08/06/22 Range/Units 18:36 18:36 21:40 WBC 16.5 H (4.5-11.0) X10^3/uL RBC 4.69 (4.0-5.2) X10^6/uL Hgb 13.3 (12.0-16.0) g/dL Hct 40.7 (36-46) % MCV 86.9 (80-100) fL MCH 28.5 (26-34) PG MCHC 32.8 (30-36) % RDW 14.3 (11.6-14.8) % Plt Count 190 (150-400) X10^3/uL Neut % (Auto) 84.4 H (50-75) % Lymph % (Auto) 5.4 L (25-40) % [place] % (Auto) 9.4 (3-14) % Eos % (Auto) 0.4 L (2-4) % Baso % (Auto) 0.4 (0-2) % Neut # (Auto) 64778 H (9514-8391) /uL Lymph # (Auto) 900 L (8475-9603) /uL [place] # (Auto) 1500 H (0-900) /uL Eos # (Auto) 100 (0-450) /uL Baso # (Auto) 100 (0-100) /uL Sodium 136 L (137-145) mmol/L Potassium 3.5 (3.4-5.1) mmol/L Chloride 100 (98-107) mmol/L Carbon Dioxide 27 (22-32) mmol/L BUN 19 H (7-17) mg/dL Creatinine 0.86 (0.52-1.04) mg/dL Estimated GFR > 60 (>60) mL/min BUN/Creatinine Ratio 22.1 H (6-22) Glucose 104 (80-110) mg/dL Calcium 8.7 (8.4-10.2) mg/dL Magnesium 1.7 (1.6-2.3) mg/dL Total Bilirubin 1.1 (0.2-1.3) mg/dL AST 16 (14-36) IU/L ALT 9 (<35) IU/L Alkaline Phosphatase 110 (38-126) U/L Total Protein 6.6 (6.3-8.2) g/dL Albumin 3.6 (3.5-5.0) g/dL Globulin 3.0 (1.7-4.1) g/dL Albumin/Globulin Ratio 1.2 (1.0-2.8) SARS-CoV-2 (PCR) Negative (Negative) MDM Narrative Medical decision making narrative: Patient with multiple comorbidities has rapid onset circumferential cellulitis of the majority of her left lower leg. She has elevated white count and feels poorly. She requires hospitalization for stabilization and further treatment of her condition Discharge Plan Departure Patient Disposition: Admitted As Inpatient Clinical Impression: Cellulitis of left leg, Disequilibrium Admit Date/Time: 02/05/22 22:23 Admit Provider: Gavin Colvin
--- NOTE | 2022-02-05 19:45 | PC.NURSE ---
pt's left leg is red hot to the touch and swollen to the knee, the pt states she has always had dependent edema but yesterday the left leg became red, legs has a few tiny open areas and a blister, pt states she is unable to walk on the leg today and has difficulty even raising the leg
[2022-02-05] MEDS: VANCOMYCIN 2,000 MG/400 ML PIGGYBACK 200 MG IV (21:20)
--- NOTE | 2022-02-05 21:32 | DI.US.S_ITS ---
PROCEDURE: US [facility] VENOUS LOW EXTREM LT INDICATIONS: pain, swelling, redness TECHNIQUE: Real-time imaging, as well as color and pulse Doppler interrogation, were performed of the lower extremity deep veins from the inguinal ligament to the popliteal fossa. COMPARISON: [facility], [facility] VENOUS LOW EXTREM LT, 11/12/2021, 18:51. FINDINGS: The common femoral, femoral and popliteal veins are normally compressible, and free of intraluminal thrombus. Color and pulse Doppler demonstrate normal phasic intraluminal flow. There is normal augmentation response to distal compression maneuver. IMPRESSION: No DVT found. Dictated by: Sacha Vanessa M.D. on 02/05/2022 at 22:31 Approved by: Sacha Vanessa M.D. on 02/05/2022 at 22:31
[2022-02-05 22:01] LABS: COVID19 -Nasal RAPID Negative (Negative)
--- NOTE | 2022-02-05 23:56 | PM.HP.1 ---
History of Present Illness History of Present Illness Date Patient Seen: 02/05/22 Time Patient Seen: 23:57 Date of Onset of Symptoms: 02/05/22 Chief complaint: LEFT LEG HOT, SORE, SWOLLEN Narrative: Patient is a 71-year-old white female with history of multiple medical problems including but not limited to atrial fibrillation bullous pemphigoid chronic kidney disease COPD hypertension and history of edema. Apparently in her usual state health feeling relatively well up until yesterday when she began having some left leg pain. Seem to be getting worse. No other significant new change. No fevers no chills. But was not feeling great. Today increasing left foot and ankle pain and redness. Seem to be progressing quite fast. And was brought to the emergency room. No other significant change. Patient has a history of bladder infections and maybe has some questionable symptoms. No abdominal pain. No nausea no vomiting. Energy level is been down. Has been treating with CellCept for her pemphigus. But no other changes. No new medication. No history of trauma. Apparently patient has had a chronic wound on her left leg which they have been treating but felt like things had been going well. Has been seeing the wound clinic. No chest pain cough shortness of breath abdominal discomfort change in bowel movements. Patient has been taking her anticoagulant. She had a history of PE in July. Has been stable on that since that time. No other changes. Patient History Medical History Anemia Asthma Atrial fibrillation by electrocardiography Bullous pemphigoid (~10/2019) Chickenpox Cholelithiasis Chronic kidney disease (CKD) stage G2/A1, mildly decreased glomerular filtration rate (GFR) between 60-89 mL/min/1.73 square meter and albuminuria creatinine ratio less than 30 mg/g (09/06/17) Chronic obstructive pulmonary disease (10/19/16) Class 1 obesity (09/05/16) Diverticulosis of colon (~12/2020) Eczema Environmental allergies (09/05/16) Fatigue due to sleep pattern disturbance Hepatitis B core antibody positive History of torn meniscus of right knee Hyperlipidemia (01/25/11) Hypertension (01/25/11) Hypothyroidism (~2007) Insomnia due to medical condition Measles Morbid obesity with body mass index (BMI) of 40.0 to 49.9 Osteoarthritis (01/25/11) Pacemaker (~05/2021) Pedal edema Persistent atrial fibrillation Pulmonary nodules/lesions, multiple Recurrent sinusitis (~1999) Seasonal allergies Sigmoid diverticulosis Snoring Surgical History Anesthesia History of foot surgery History of hip replacement (~2010) History of hip replacement (~2012) History of radiofrequency ablation procedure for cardiac arrhythmia (~07/2019) Polyp of nasal sinus Status post hysterectomy with oophorectomy (~1996) Family & Social History Family History Father Heart disease Hypertension Mother Heart disease Stroke Hypertension Diabetes mellitus Dementia Grandfather Cancer Grandmother No problems noted. Grandfather No problems noted. Grandmother No problems noted. Brother Pacemaker Social History: household members spouse Prior Living Arrangements House Safety & Behavioral: Feels Safe in Current Yes Environment Been Physically Hurt or No Threatened By a Person Tobacco & Substance use: Smoking Status Former smoker alcohol intake current alcohol intake frequency a few times a month Substance Use Type does not use Meds Home Medications and Allergies Home Medications Medication Instructions Recorded Confirmed Type cyanocobalamin (vitamin B-12) 1,000 mcg PO DAILY ##0 08/05/16 01/27/22 History 1,000 mcg tablet,extended release omeprazole magnesium 20 mg 20 mg PO DAILY 06/07/18 01/27/22 History tablet,delayed release (Prilosec OTC) losartan 50 mg tablet 50 mg PO DAILY 12/25/18 01/27/22 History albuterol sulfate 90 mcg/actuation 2 - 4 puff inhalation Q4H PRN 04/08/20 01/27/22 Rx aerosol inhaler (Ventolin HFA) Shortness Of Breath #8.5 grams calcium carb-vit D3-magnesium 250 2 cap PO DAILY 11/04/20 01/27/22 History mg-200 unit-125 mg capsule fluticasone furoate 100 See Rx Instructions .Route 05/11/21 01/27/22 Rx mcg-vilanterol 25 mcg/dose .COMPLEX #180 ea inhalation powder (Breo Ellipta) flecainide 50 mg tablet 100 mg PO BID 06/14/21 01/27/22 History doxepin 10 mg capsule 10 mg PO BEDTIME 07/07/21 01/27/22 History metoprolol succinate 50 mg 100 mg PO BID 07/07/21 01/27/22 History tablet,extended release 24 hr potassium chloride 10 mEq 10 meq PO BEDTIME 07/07/21 01/27/22 History tablet,extended release(part/cryst) ferrous sulfate 325 mg (65 mg 325 mg PO DAILY 08/18/21 01/27/22 History iron) tablet torsemide 5 mg tablet 2.5 mg PO DAILY #30 tabs 09/22/21 01/27/22 Rx pramipexole 0.125 mg tablet 0.125 mg PO BEDTIME #90 tabs 11/05/21 01/27/22 Rx mycophenolate mofetil 200 mg/mL 1,000 mg PO BID 11/25/21 01/27/22 History oral suspension (CellCept) gabapentin 600 mg tablet See Rx Instructions .Route 11/26/21 01/27/22 Rx .COMPLEX #90 tabs atorvastatin 10 mg tablet See Rx Instructions .Route 12/09/21 01/27/22 Rx .COMPLEX #90 tabs tramadol 50 mg tablet 50 mg PO TID PRN severe pain #60 12/13/21 01/27/22 Rx tabs levothyroxine 75 mcg tablet See Rx Instructions .Route 12/27/21 01/27/22 Rx .COMPLEX #90 tabs apixaban 5 mg tablet (Eliquis) 5 mg PO BID #120 tabs 12/29/21 01/27/22 Rx Allergies Allergy/AdvReac Type Severity Reaction Status Date / Time No Known Drug Allergies Allergy Verified 01/27/22 11:07 Review of Systems Review of Systems Narrative: All negative except above Exam Vital Signs (past 8 hours): - 02/05/22 17:36 02/05/22 18:27 02/05/22 18:28 Temperature 97 F L Pulse Rate 70 70 73 Respiratory Rate 18 Blood Pressure 177/86 H Pulse Oximetry 95 100 100 Oxygen Delivery Method Room Air 02/05/22 18:28 02/05/22 18:30 02/05/22 18:30 Temperature Pulse Rate 72 Respiratory Rate 17 Blood Pressure 148/67 H 153/66 H Pulse Oximetry 99 Oxygen Delivery Method 02/05/22 19:00 02/05/22 19:00 02/05/22 19:30 Temperature Pulse Rate 71 Respiratory Rate 18 Blood Pressure 156/67 H 179/110 H Pulse Oximetry 99 Oxygen Delivery Method 02/05/22 19:30 02/05/22 20:00 02/05/22 20:01 Temperature Pulse Rate 77 72 Respiratory Rate 18 19 Blood Pressure 165/69 H Pulse Oximetry 98 97 Oxygen Delivery Method 02/05/22 20:01 02/05/22 20:30 02/05/22 20:31 Temperature Pulse Rate 72 71 70 Respiratory Rate 24 22 20 Blood Pressure Pulse Oximetry 98 98 97 Oxygen Delivery Method 02/05/22 20:31 02/05/22 21:00 02/05/22 21:00 Temperature Pulse Rate 74 Respiratory Rate 25 H Blood Pressure 149/67 H 162/105 H Pulse Oximetry 97 Oxygen Delivery Method 02/05/22 21:30 02/05/22 21:31 02/05/22 21:31 Temperature Pulse Rate 71 75 Respiratory Rate 24 31 H Blood Pressure 160/74 H Pulse Oximetry 98 98 Oxygen Delivery Method 02/05/22 22:00 02/05/22 22:00 02/05/22 22:30 Temperature Pulse Rate 70 70 Respiratory Rate 18 23 Blood Pressure 176/73 H Pulse Oximetry 99 91 Oxygen Delivery Method 02/05/22 22:31 02/05/22 22:31 Temperature Pulse Rate 70 Respiratory Rate 22 Blood Pressure 172/77 H Pulse Oximetry 92 Oxygen Delivery Method Oxygen Delivery Method Room Air Narrative Exam Narrative: Alert obese elderly female lying in bed no acute distress. HEENT exam mucous membranes moist neck supple without adenopathy. Lungs are clear. Heart regular rate and rhythm without murmurs clicks rubs or gallops. Abdomen is soft positive bowel sounds nontender. Extremities bilateral 2+ edema. Says moderate tenderness with no evidence of abscess or open wounds from about mid beavers to her toes. Feet is swollen bilaterally but left leg is erythematous to about 15 cm up the left leg. Above the malleolus. Warm to the touch. Deep violaceous red. No open or draining wounds that I can see. Capillary refills okay. Neurologic exam is normal. Objective Labs Result Diagrams: 02/05/22 18:36 02/05/22 18:36 Labs: Laboratory Results - last 24 hr 02/05/22 02/05/22 02/05/22 18:36 18:36 21:40 WBC 16.5 H RBC 4.69 Hgb 13.3 Hct 40.7 MCV 86.9 MCH 28.5 MCHC 32.8 RDW 14.3 Plt Count 190 Neut % (Auto) 84.4 H Lymph % (Auto) 5.4 L Karnes % (Auto) 9.4 Eos % (Auto) 0.4 L Baso % (Auto) 0.4 Neut # (Auto) 96551 H Lymph # (Auto) 900 L Karnes # (Auto) 1500 H Eos # (Auto) 100 Baso # (Auto) 100 Sodium 136 L Potassium 3.5 Chloride 100 Carbon Dioxide 27 BUN 19 H Creatinine 0.86 Estimated GFR > 60 BUN/Creatinine Ratio 22.1 H Glucose 104 Calcium 8.7 Magnesium 1.7 Total Bilirubin 1.1 AST 16 ALT 9 Alkaline Phosphatase 110 Total Protein 6.6 Albumin 3.6 Globulin 3.0 Albumin/Globulin Ratio 1.2 SARS-CoV-2 (PCR) Negative Assessment & Plan Assessment & Plan narrative: Cellulitis left leg. Aggressive. Basically significantly affected over the course of 24 hours. No real open wounds to culture although the emergency room did culture with they could see. I do not think it is going to be significant at this point. Hard to tell. But certainly primarily appears to be a cellulitis. At this point started on vancomycin will continue follow-up cultures and decide on long-term treated depending on response and if cultures grow anything. Does not appear be septic at this time. Dehydration mild. Will follow. Continue oral hydration. Atrial fibrillation. Status post ablation seems to be doing well. No evidence of active AFib. Will follow. History of pemphigus. On CellCept will continue usual meds. Hypertension. Stable at this time. History of pulmonary embolism. Did get ultrasound of left lower leg since slightly more swollen but I suspect it is not DVT. She is on anticoagulation. Will continue her anticoagulation with her history. History of renal failure chronic. Will recheck in a.m.. Stable at this time. Obesity. May impact some of her edema which is causing problems with her cellulitis. Will see how things go. Certainly not actively going to treat. Hypothyroidism usual meds COPD. Usual inhalers as needed DVT prophylaxis on treatment already. GI prophylaxis. On think we need any active treatment at this time will follow. Disposition. Clearly will be here more than 48 hours. Discussed with her and her . Questions answered. Time Spent With Patient Critical Care time: I spent a total of [] minutes of critical care time on this patient's care today; this time is exclusive of procedural time. Quality VTE Deep Vein Thrombosis/Pulmonary Embolism Present on Admission: No
[2022-02-06] MEDS: GABAPENTIN 600 MG TABLET PO (00:35)
[2022-02-06] MEDS: ACETAMINOPHEN 325 MG TABLET 650 MG PO ×2 (00:36→06:40)
[2022-02-06] MEDS: MYCOPHENOLATE MOFETIL 500 MG TABLET 1000 MG PO ×2 (00:36→09:08)
[2022-02-06] MEDS: APIXABAN 5 MG TABLET PO ×2 (00:36→08:55)
[2022-02-06] MEDS: SODIUM CHLORIDE 0.9% 1,000 ML 100 ML IV (00:50)
[2022-02-06 00:52] VITALS: BP 147/64; PULSE 71
[2022-02-06] MEDS: METOPROLOL ER 50 MG TABLET 100 MG PO ×2 (00:52→08:56)
[2022-02-06] MEDS: TRAMADOL 50 MG TABLET PO (01:34)
[2022-02-06 01:50] VITALS: BP 137/67; PULSE 67
[2022-02-06 05:46] LABS: Add Manual Diff / Slide Review NO; Basophils Absolute Auto 100 /uL (0-100); Basophils Percent Auto 0.7 % (0-2); Eosinophils Absolute Auto 100 /uL (0-450); Hematocrit 37.9 % (36-46); Hemoglobin 12.2 g/dL (12.0-16.0); Lymphocytes Absolute Auto 800 /uL (1100-4500); Lymphocytes Percent Auto 6.6 % (25-40); Mean Corpuscular HGB Conc 32.2 % (30-36); Mean Corpuscular Hemoglobin 28.1 PG (26-34); Mean Corpuscular Volume 87.5 fL (80-100); Monocytes Absolute Auto 1200 /uL (0-900); Monocytes Percent Auto 9.2 % (3-14); Neutrophils Absolute Auto 10400 /uL (1500-7000); Neutrophils Percent Auto 82.5 % (50-75); Platelet Count 165 X10^3/uL (150-400); Red Blood Cell Count 4.33 X10^6/uL (4.0-5.2); Red Cell Distribution Width 13.9 % (11.6-14.8); White Blood Cell Count 12.6 X10^3/uL (4.5-11.0)
[2022-02-06 05:57] LABS: BUN Creatinine Ratio 18.3 (6-22); Blood Urea Nitrogen 15 mg/dL (7-17); Carbon Dioxide 30 mmol/L (22-32); Chloride 103 mmol/L (98-107); Estimated Glomerular Filt Rate > 60 mL/min (>60); Glucose 95 mg/dL (80-110); Sodium 135 mmol/L (137-145)
[2022-02-06 05:59] LABS: Calcium 8.3 mg/dL (8.4-10.2); HEMOLYSIS < 15 (0-50); Potassium 3.3 mmol/L (3.4-5.1)
[2022-02-06] MEDS: LEVOTHYROXINE 75 MCG TABLET PO (06:40)
[2022-02-06] MEDS: ALBUTEROL 2.5 MG/3 ML NEB (ADULT) INH (07:48)
[2022-02-06 07:49] VITALS: PULSE 64; RESP 18; O2SAT 98
[2022-02-06] MEDS: BUDESONIDE 0.5 MG/2 ML NEB INH (07:49)
[2022-02-06 07:54] VITALS: PULSE 62; RESP 20
[2022-02-06 08:10] VITALS: BP 138/59; PULSE 60; TEMP 36.4; O2SAT 97
[2022-02-06] MEDS: ATORVASTATIN 20 MG TABLET 10 MG PO (08:54)
[2022-02-06] MEDS: PANTOPRAZOLE DR 20 MG TABLET PO (08:54)
[2022-02-06] MEDS: FERROUS SULFATE 325 MG TABLET PO (08:55)
[2022-02-06] MEDS: LOSARTAN 50 MG TABLET PO (08:56)
[2022-02-06] MEDS: FLECAINIDE 100 MG TABLET PO (08:56)
[2022-02-06] MEDS: POTASSIUM CHLORIDE 20 MEQ TAB 40 MEQ PO (09:07)
[2022-02-06] MEDS: TORSEMIDE 10 MG TABLET 2.5 MG PO (09:08)
[2022-02-06] MEDS: PRAMIPEXOLE 0.125 MG TABLET PO (10:35)
--- NOTE | 2022-02-06 12:17 | PM.DS.1 ---
History of Present Illness History of Present Illness Date Patient Seen: 02/06/22 Date of Onset of Symptoms: 02/05/22 Chief complaint: LEFT LEG HOT, SORE, SWOLLEN Narrative: Per Dr. Colvin, Patient is a 71-year-old white female with history of multiple medical problems including but not limited to atrial fibrillation bullous pemphigoid chronic kidney disease COPD hypertension and history of edema. Apparently in her usual state health feeling relatively well up until yesterday when she began having some left leg pain. Seem to be getting worse. No other significant new change. No fevers no chills. But was not feeling great. Today increasing left foot and ankle pain and redness. Seem to be progressing quite fast. And was brought to the emergency room. No other significant change. Patient has a history of bladder infections and maybe has some questionable symptoms. No abdominal pain. No nausea no vomiting. Energy level is been down. Has been treating with CellCept for her pemphigus. But no other changes. No new medication. No history of trauma. Apparently patient has had a chronic wound on her left leg which they have been treating but felt like things had been going well. Has been seeing the wound clinic. No chest pain cough shortness of breath abdominal discomfort change in bowel movements. Patient has been taking her anticoagulant. She had a history of PE in July. Has been stable on that since that time. No other changes. Discharge Providers Provider Date of admission: 02/05/22 22:23 Discharge Date: 02/06/22 Primary care physician: Brent Dumont MD Consults: 02/06/22 11:10 Consult to Inpatient Wound Care Nurse Routine Comment: Reason for consultation: Auto immune disease that attacks skin, cellulitis Has provider been notified: Yes Discharge provider: Jaime Sung DO Summary Hospital Course Discharge Diagnosis: Cellulitis left leg. history of paroxysmal Atrial fibrillation? Status post ablation History of bullous pemphigoid. Hypertension.? History of pulmonary embolism.? Obesity, BMI 39.? Hypothyroidism, chronic COPD without exacerbation, chronic Hospital Course: This is a 71-year-old female with a past medical history of bolus pemphigoid, paroxysmal atrial fibrillation status post ablation, hypertension, as well as prior PE and obesity with a BMI of 39 was admitted with a left lower extremity cellulitis. She was started on aggressive IV antibiotics with ceftriaxone and vancomycin with rapid improvement in swelling, erythema, and pain. Pain at the time of discharge, and her swelling had markedly improved. Discussed further management options including the risks and benefits of continued IV antibiotics or discharge home given her rapid improvement, the patient elected for discharge home. She will be of cephalexin and Linzeolid as I suspect some venous insufficiency contributing towards her cellulitis. Should cultures returned negative for MRSA that were collected in the emergency room she can stop Linezolid therapy. DVT study was performed as well which was negative for DVT. Exam Vital Signs (past 8 hours): - 02/06/22 07:49 02/06/22 07:54 02/06/22 08:10 Temperature 97.5 F L Pulse Rate 64 62 60 Respiratory Rate 18 20 Blood Pressure 138/59 L Pulse Oximetry 98 97 Oxygen Delivery Method Room Air Room Air Oxygen Flow Rate 0 Oxygen Delivery Method Room Air Oxygen Flow Rate 0 Narrative Exam Narrative: General:? Patient is well developed and well nourished, in no distress at this time. HEENT:? Normocephalic, atraumatic, extraocular muscles intact, oral pharynx is clear and mucous membranes are moist. Neck: supple and symmetric, trachea is midline, no cervical adenopathy. Negative for JVD Chest:? Normal AP diameter and contour without kyphoscoliosis, no tachypnea, equal chest rise bilaterally. Lungs:? CTA b/l no wheezing rhonchi or rales. Cardio:?RRR no m/r/g. distal pulses (radial and DP) +2 Abdomen: S NT ND. Musculoskeletal:? Muscle strength and tone are equal within normal limits, no deformity. Extremities: mild bilateral peripheral edema, mild L ankle swelling, left edema is > R. Edema is pitting. Skin:? Pale,?LLE with swelling as noted above, mild erythema, tenderness, and warmth. well appearing chronic superficial ulcers of the LLE (x3 small <0.5 cm on the anterior beavers), without surrounding erythema or induration. Neuro:? Alert and orientated x3,? sensation to touch slightly diminished bilateral lower extremities, no gross deficits noted of cranial nerves. Psych:? Patient has a well-kept appearance, appropriate affect, mental status attitude thought context and judgment are appropriate for age. Objective Labs Result Diagrams: 02/06/22 05:19 02/06/22 05:19 Labs: Laboratory Results - last 24 hr 02/05/22 02/05/22 02/05/22 18:36 18:36 21:40 WBC 16.5 H RBC 4.69 Hgb 13.3 Hct 40.7 MCV 86.9 MCH 28.5 MCHC 32.8 RDW 14.3 Plt Count 190 Neut % (Auto) 84.4 H Lymph % (Auto) 5.4 L Carver % (Auto) 9.4 Eos % (Auto) 0.4 L Baso % (Auto) 0.4 Neut # (Auto) 15946 H Lymph # (Auto) 900 L Carver # (Auto) 1500 H Eos # (Auto) 100 Baso # (Auto) 100 Sodium 136 L Potassium 3.5 Chloride 100 Carbon Dioxide 27 BUN 19 H Creatinine 0.86 Estimated GFR > 60 BUN/Creatinine Ratio 22.1 H Glucose 104 Calcium 8.7 Magnesium 1.7 Total Bilirubin 1.1 AST 16 ALT 9 Alkaline Phosphatase 110 Total Protein 6.6 Albumin 3.6 Globulin 3.0 Albumin/Globulin Ratio 1.2 SARS-CoV-2 (PCR) Negative 02/06/22 02/06/22 05:19 05:19 WBC 12.6 H RBC 4.33 Hgb 12.2 Hct 37.9 MCV 87.5 MCH 28.1 MCHC 32.2 RDW 13.9 Plt Count 165 Neut % (Auto) 82.5 H Lymph % (Auto) 6.6 L Carver % (Auto) 9.2 Eos % (Auto) 1.0 L Baso % (Auto) 0.7 Neut # (Auto) 00832 H Lymph # (Auto) 800 L Carver # (Auto) 1200 H Eos # (Auto) 100 Baso # (Auto) 100 Sodium 135 L Potassium 3.3 L Chloride 103 Carbon Dioxide 30 BUN 15 Creatinine 0.82 Estimated GFR > 60 BUN/Creatinine Ratio 18.3 Glucose 95 Calcium 8.3 L Magnesium Total Bilirubin AST ALT Alkaline Phosphatase Total Protein Albumin Globulin Albumin/Globulin Ratio SARS-CoV-2 (PCR) [facility] Medical History Anemia Asthma Atrial fibrillation by electrocardiography Bullous pemphigoid (~10/2019) Chickenpox Cholelithiasis Chronic kidney disease (CKD) stage G2/A1, mildly decreased glomerular filtration rate (GFR) between 60-89 mL/min/1.73 square meter and albuminuria creatinine ratio less than 30 mg/g (09/06/17) Chronic obstructive pulmonary disease (10/19/16) Class 1 obesity (09/05/16) Diverticulosis of colon (~12/2020) Eczema Environmental allergies (09/05/16) Fatigue due to sleep pattern disturbance Hepatitis B core antibody positive History of torn meniscus of right knee Hyperlipidemia (01/25/11) Hypertension (01/25/11) Hypothyroidism (~2007) Insomnia due to medical condition Measles Morbid obesity with body mass index (BMI) of 40.0 to 49.9 Osteoarthritis (01/25/11) Pacemaker (~05/2021) Pedal edema Persistent atrial fibrillation Pulmonary nodules/lesions, multiple Recurrent sinusitis (~1999) Seasonal allergies Sigmoid diverticulosis Snoring Surgical History Anesthesia History of foot surgery History of hip replacement (~2010) History of hip replacement (~2012) History of radiofrequency ablation procedure for cardiac arrhythmia (~07/2019) Polyp of nasal sinus Status post hysterectomy with oophorectomy (~1996) Family History Father Heart disease Hypertension Mother Heart disease Stroke Hypertension Diabetes mellitus Dementia Grandfather Cancer Grandmother No problems noted. Grandfather No problems noted. Grandmother No problems noted. Brother Pacemaker Social History marital status: household members: spouse occupational status: previously employed Smoking Status: Former smoker alcohol intake: current substance use type: does not use Discharge Plan Discharge Plan Patient Disposition: Home Provider Discharge Comment: You were admitted to the hospital with cellulitis of your left leg. This improved quickly with IV antibiotics and you are safe to discharge home. There was no blood clot in your leg. Please keep leg elevated at home and complete full treatment with antibiotics. Please follow up with wound care as previously scheduled. Discharge orders & Medications Prescriptions: New cephalexin 500 mg tablet 500 mg PO QID 14 Days Qty: 56 0RF linezolid 600 mg tablet 600 mg PO BID 14 Days Qty: 28 0RF Continued cyanocobalamin (vitamin B-12) 1,000 MCG tablet extended release 1,000 mcg PO DAILY Qty: 0 flecainide 50 mg tablet 100 mg PO BID pramipexole 0.125 mg tablet 0.125 mg PO BEDTIME Qty: 90 1RF Eliquis 5 mg tablet 5 mg PO BID Qty: 120 2RF potassium chloride 10 mEq tablet,ER particles/crystals 10 meq PO BEDTIME Label Comments: TAKE ONE TABLET BY MOUTH ONE TIME DAILY. doxepin 10 mg capsule 10 mg PO BEDTIME Label Comments: TAKE ONE CAPSULE BY MOUTH EVERY NIGHT FOR ONE WEEK. MAY INCREASE TO TWO CAPSULES AT NIGHT FOR ONE WEEK AND THEN THREE CAPSULES NIGHTLY IF SHE IS TOLERATING metoprolol succinate 50 mg tablet extended release 24 hr 100 mg PO BID albuterol sulfate [Ventolin HFA] 90 mcg/actuation HFA aerosol inhaler 2 - 4 puff inhalation Q4H PRN (Reason: Shortness Of Breath) Qty: 8.5 0RF tramadol 50 mg tablet 50 mg PO TID PRN (Reason: severe pain) Qty: 60 0RF Rx Instructions: Call for refills if/as needed. Caution regarding excessive sedation. ferrous sulfate 325 mg (65 mg iron) tablet 325 mg PO Q OTHER DAY atorvastatin 10 mg tablet 10 mg PO BEDTIME gabapentin 600 mg tablet 600 mg PO BEDTIME Label Comments: TAKE 1 TABLET BY MOUTH ONCE DAILY AT BEDTIME levothyroxine 75 mcg tablet 75 mcg PO DAILY Label Comments: TAKE ONE TABLET BY MOUTH ONE TIME DAILY FOR 6 DAYS PER WEEK mycophenolate mofetil 500 mg tablet 1,000 mg PO BID Label Comments: TAKE TWO TABLETS BY MOUTH TWICE DAILY omeprazole magnesium [Prilosec OTC] 20 mg Tablet,Delayed Release (Dr/Ec) 20 mg PO DAILY losartan 50 mg tablet 50 mg PO DAILY Follow up/Referrals: Brent Dumont MD [Primary Care Provider] - Diet/Activity/Treatments Diet: Diet as Tolerated Activity: As tolerated, keep leg elevated when resting. Visit Report/Discharge Packet Instructions: DI for Cellulitis -- Adult, Cellulitis Discharge Data Primary Care Provider: Brent Dumont Quality VTE Deep Vein Thrombosis/Pulmonary Embolism Present on Admission: No
--- NOTE | 2022-02-06 12:52 | CM.DANOTE ---
Addendum entered by ALESSANDRA Sandoval 02/06/22 13:01: ADD: Per , pt is stable for d/c home later today with oral abx and no identified barriers to discharge. BF Original Note: Patient is a 71 yo female who was admitted on 02/05/22 for Left Leg swelling. Pt has MCR and [employer] for insurance and her PCP is Dr. Brent Dumont. EMR was reviewed. Per , pt with hx of AFIB, COPD, edema and goes to [facility] at baseline. EMR was reviewed. Per , pt with cellulitis and admitted for IV-Abx and cultures pending towards determining d/c today vs tomorrow on orals pending progess. SW met bedside with pt and explained role and pt confirms she was last admitted in Jul 2021 this year for PEs and was able to d/c home with outpt f/u. Pt confirms she still lives in [place] with her spouse and is independent at baseline and has a walker and w/c at home in case needed. Pt no longer drives and her spouse is about 10 years older than she is but active and independent. Pt denies any hx of HH or SNF and does not anticipate any needs at d/c. Pt states they have their Living Will and DPOA pwk all completed with their workers compensation attorney but it will not be formally finalized until the of this month (about a week away). Pt states DPOA will be 1)spouse 2) Dtr in [facility]. Pt states she and spouse are the only two local although they have supportive friends and their adult children live driving distance away around [facility]. Plan: SW to follow for likely d/c home today vs tomorrow pending progess and cellulitis and abx and any further identified discharge planning needs. ALESSANDRA Sandoval Discharge Planning/Care Management CM Discharge Assessment Start: 02/06/22 12:47 Freq: Status: Active Protocol: Document 02/06/22 12:47 BF (Rec: 02/06/22 12:52 BF [id number]) Discharge Planning Assessment Assigned Editor Publications ALESSANDRA Malloy DPOA/Assigned Designee Name Spouse Keshav Contact Information [phone] Advance Directives? No Advance Directives on File No History Provided By Patient,Medical Record Has Patient been admitted in last 30 No days? Prior Living Arrangements House Household Members spouse Type of transporation used prior to Relies on Others admit Independent with ADL's Yes Is patient alert and oriented? Yes Needs Assistance With Home Chores / Shopping Caregiver for Another No Community Services used prior to Physical Therapy admission: DME Already Rented / Owned Wheelchair,FWW / Walker Barriers to Discharge No Discharge Plan Home Transportation Arrangement Spouse plans to provide transport home at d/c Referrals Initiated None needed Whiteboard Updated in Patient Room with Yes name and ext. # of Editor Publications Review Status In Process Please Provide Date Initial DC 02/06/22 Assessment Was Performed Next Review Type Continued Stay Review
== END 2022-02-06 13:38 | disposition home or self-care (01) ==
LOC: ED 21:35 → AC 22:45
PROVIDERS: Admitting Provider Family Medicine; Emergency Provider Emergency Medicine; Family Provider Student in an Organized Health Care Education/Training Program; PCP Student in an Organized Health Care Education/Training Program; Referring Provider Emergency Medicine; Visit Provider Internal Medicine
DX: L03.116 Cellulitis of left lower limb (principal); I13.0 Hypertensive heart and chronic kidney disease with heart failure and stage 1 through stage 4 chronic kidney disease, or unspecified chronic kidney disease; N18.2 Chronic kidney disease, stage 2 (mild); I50.9 Heart failure, unspecified; E66.9 Obesity, unspecified; J44.9 Chronic obstructive pulmonary disease, unspecified; Z68.39 Body mass index [BMI] 39.0-39.9, adult; E03.9 Hypothyroidism, unspecified; Z86.711 Personal history of pulmonary embolism; Z79.01 Long term (current) use of anticoagulants; Z95.0 Presence of cardiac pacemaker; Z20.822 Contact with and (suspected) exposure to COVID-19
CPT/HCPCS: 36415; 80048; 80053; 83735; 85025; 87040; 87070; 87075; 87077; 87147; 87186; 87205; 87635; 93005; 93971; 94640; 96365; 96366; 99284; C9803; G0378; J7613

== ENCOUNTER → 2022-02-11 13:53 | Outpatient (CLI) | payer MEDICARE, SELFPAY ==
[2022-02-05 22:38] VITALS: BMI 39.4
== END ==
PROVIDERS: Family Provider Student in an Organized Health Care Education/Training Program; PCP Student in an Organized Health Care Education/Training Program; Referring Provider Student in an Organized Health Care Education/Training Program; Visit Provider Nurse Practitioner Family
DX: L97.822 Non-pressure chronic ulcer of other part of left lower leg with fat layer exposed (principal); L12.0 Bullous pemphigoid; R60.0 Localized edema; L03.116 Cellulitis of left lower limb; I50.9 Heart failure, unspecified; I48.91 Unspecified atrial fibrillation; Z79.01 Long term (current) use of anticoagulants; I26.99 Other pulmonary embolism without acute cor pulmonale; Z95.0 Presence of cardiac pacemaker
CPT/HCPCS: 97597; 99213

== ENCOUNTER → 2022-03-04 14:09 | Outpatient (CLI) | payer MEDICARE, SELFPAY ==
[2022-02-05 22:38] VITALS: BMI 39.4
== END ==
PROVIDERS: Family Provider Student in an Organized Health Care Education/Training Program; PCP Pediatrics; Referring Provider Pediatrics; Visit Provider Nurse Practitioner Family
DX: L12.0 Bullous pemphigoid (principal); L97.822 Non-pressure chronic ulcer of other part of left lower leg with fat layer exposed; L03.116 Cellulitis of left lower limb; R60.9 Edema, unspecified; Z79.01 Long term (current) use of anticoagulants; L08.9 Local infection of the skin and subcutaneous tissue, unspecified; M79.605 Pain in left leg; Z95.0 Presence of cardiac pacemaker
CPT/HCPCS: 11042; 99212; 99214

== ENCOUNTER → 2022-03-11 11:09 | Outpatient (CLI) | payer MEDICARE, SELFPAY ==
[2022-02-05 22:38] VITALS: BMI 39.4
== END ==
PROVIDERS: Family Provider Student in an Organized Health Care Education/Training Program; PCP Pediatrics; Referring Provider Pediatrics; Visit Provider Nurse Practitioner Family
DX: L97.822 Non-pressure chronic ulcer of other part of left lower leg with fat layer exposed (principal); L12.0 Bullous pemphigoid; I50.9 Heart failure, unspecified; R60.9 Edema, unspecified; I48.91 Unspecified atrial fibrillation; Z79.01 Long term (current) use of anticoagulants; I26.99 Other pulmonary embolism without acute cor pulmonale; Z95.0 Presence of cardiac pacemaker
CPT/HCPCS: 11042

== ENCOUNTER → 2022-03-18 09:23 | Outpatient (CLI) | payer MEDICARE, SELFPAY ==
[2022-02-05 22:38] VITALS: BMI 39.4
== END ==
PROVIDERS: Family Provider Student in an Organized Health Care Education/Training Program; PCP Pediatrics; Referring Provider Pediatrics; Visit Provider Nurse Practitioner Family
DX: L97.821 Non-pressure chronic ulcer of other part of left lower leg limited to breakdown of skin (principal); L12.0 Bullous pemphigoid; I50.9 Heart failure, unspecified; R60.9 Edema, unspecified; I48.91 Unspecified atrial fibrillation; Z79.01 Long term (current) use of anticoagulants; I26.99 Other pulmonary embolism without acute cor pulmonale; Z95.0 Presence of cardiac pacemaker
CPT/HCPCS: 15271; 97597; Q4196

== ENCOUNTER → 2022-03-25 08:52 | Outpatient (CLI) | payer MEDICARE, SELFPAY ==
[2022-02-05 22:38] VITALS: BMI 39.4
== END ==
PROVIDERS: Family Provider Student in an Organized Health Care Education/Training Program; PCP Pediatrics; Referring Provider Emergency Medicine; Visit Provider Nurse Practitioner Family
DX: L97.822 Non-pressure chronic ulcer of other part of left lower leg with fat layer exposed (principal); L97.821 Non-pressure chronic ulcer of other part of left lower leg limited to breakdown of skin; L12.0 Bullous pemphigoid; R60.0 Localized edema; L53.9 Erythematous condition, unspecified
CPT/HCPCS: 15271; 97597; Q4196

== ENCOUNTER → 2022-04-01 14:08 | Outpatient (CLI) | payer MEDICARE, SELFPAY ==
[2022-02-05 22:38] VITALS: BMI 39.4
== END ==
PROVIDERS: Family Provider Student in an Organized Health Care Education/Training Program; PCP Pediatrics; Referring Provider Emergency Medicine; Visit Provider Nurse Practitioner Family
DX: L12.0 Bullous pemphigoid (principal)
CPT/HCPCS: 99213

== ENCOUNTER → 2022-04-08 10:28 | Outpatient (CLI) | payer MEDICARE, SELFPAY ==
[2022-02-05 22:38] VITALS: BMI 39.4
== END ==
PROVIDERS: Family Provider Student in an Organized Health Care Education/Training Program; PCP Pediatrics; Referring Provider Emergency Medicine; Visit Provider Nurse Practitioner Family
DX: L97.822 Non-pressure chronic ulcer of other part of left lower leg with fat layer exposed (principal); L97.821 Non-pressure chronic ulcer of other part of left lower leg limited to breakdown of skin; L12.0 Bullous pemphigoid; R60.9 Edema, unspecified; Z79.01 Long term (current) use of anticoagulants
CPT/HCPCS: 99212; 99213

== ENCOUNTER 2022-04-15 17:44 | Emergency (ER) | payer MEDICARE, SELFPAY ==
[2022-02-05 22:38] VITALS: BMI 39.4
[2022-04-15 18:21] VITALS: BP 185/85; PULSE 68; RESP 18; TEMP 37.2; O2SAT 98; BMI 37.4
--- NOTE | 2022-04-15 19:03 | DI.US.S_ITS ---
PROCEDURE: US [facility] VENOUS LOW EXTREM LT INDICATIONS: pain, swelling, redness left calf, no injury TECHNIQUE: Real-time imaging, as well as color and pulse Doppler interrogation, were performed of the lower extremity deep veins from the inguinal ligament to the popliteal fossa. COMPARISON: [facility], , [facility] VENOUS LOW EXTREM LT, 02/05/2022, 22:03. FINDINGS: The common femoral, femoral and popliteal veins are normally compressible, and free of intraluminal thrombus. Color and pulse Doppler demonstrate normal phasic intraluminal flow. There is normal augmentation response to distal compression maneuver. IMPRESSION: Technically difficult exam. No left lower extremity DVT. Dictated by: Leopoldo Longo M.D. on 04/15/2022 at 20:03 Approved by: Leopoldo Longo M.D. on 04/15/2022 at 20:04
--- NOTE | 2022-04-15 19:12 | ED.SKABFB ---
HPI - Skin/Abscess/Foreign Bdy General Chief complaint: Skin/Abscess/Foreign Body Stated complaint: Swollen red left leg Time Seen by Provider: 04/15/22 19:03 History of Present Illness HPI narrative: 71-year-old female nonsmoker with history of AFib on long-term anticoagulation, pulmonary embolism, bullous pemphigoid, hypertension, GERD, hypothyroid presents with her and a chief complaint of a relatively rapid onset of pain, swelling and redness of her left lower extremity in the absence of any injury. She denies any chest pain or shortness of breath. She denies any dizziness, weakness or lightheadedness and states that she had chills 2 nights ago but no measured fever. She denies nausea or vomiting. She denies any abdominal pain, constipation or diarrhea and has no urinary complaints. She is had cellulitis in the past and is concerned about the possibility of another occurrence Related Data Home Medications Medication Instructions Recorded Confirmed cyanocobalamin (vitamin B-12) 1,000 mcg PO DAILY ##0 08/05/16 03/15/22 1,000 mcg tablet,extended release omeprazole magnesium 20 mg 20 mg PO DAILY 06/07/18 03/15/22 tablet,delayed release (Prilosec OTC) losartan 50 mg tablet 50 mg PO DAILY 12/25/18 03/15/22 flecainide 50 mg tablet 100 mg PO BID 06/14/21 03/15/22 doxepin 10 mg capsule 10 mg PO BEDTIME 07/07/21 03/15/22 metoprolol succinate 50 mg 100 mg PO BID 07/07/21 03/15/22 tablet,extended release 24 hr potassium chloride 10 mEq 10 meq PO BEDTIME 07/07/21 03/15/22 tablet,extended release(part/cryst) ferrous sulfate 325 mg (65 mg 325 mg PO Q OTHER DAY 08/18/21 03/15/22 iron) tablet mycophenolate mofetil 500 mg tablet 1,000 mg PO BID 02/06/22 03/15/22 Previous Rx's Medication Instructions Recorded albuterol sulfate 90 mcg/actuation 2 - 4 puff inhalation Q4H PRN 04/08/20 aerosol inhaler (Ventolin HFA) Shortness Of Breath #8.5 grams pramipexole 0.125 mg tablet 0.125 mg PO BEDTIME #90 tabs 11/05/21 apixaban 5 mg tablet (Eliquis) 5 mg PO BID #120 tabs 12/29/21 gabapentin 600 mg tablet See Rx Instructions .Route 02/17/22 .COMPLEX #90 tabs tramadol 50 mg tablet 50 mg PO TID PRN severe pain #60 03/03/22 tabs atorvastatin 10 mg tablet See Rx Instructions .Route 03/11/22 .COMPLEX #90 tabs levothyroxine 75 mcg tablet See Rx Instructions .Route 04/07/22 .COMPLEX #90 tabs cephalexin 500 mg capsule 500 mg PO Q6H 10 days #40 caps 04/15/22 linezolid 600 mg tablet 600 mg PO BID #20 tabs 04/15/22 Allergies Allergy/AdvReac Type Severity Reaction Status Date / Time No Known Drug Allergies Allergy Verified 04/15/22 18:28 Review of Systems Review of Systems Narrative: GENERAL: Denies chills, fatigue, malaise, fever, sweats. HEENT: Denies sinus pain, ear pain, sore throat, difficulty swallowing, dizziness. RESPIRATORY: Denies dyspnea, cough, wheezing, hemoptysis, sputum. CARDIOVASCULAR: Denies chest pain, palpitations, orthopnea, edema, GASTROINTESTINAL: Denies nausea, vomiting, abdominal pain, diarrhea, constipation, melena. : Denies dysuria, frequency, incontinence, hematuria, urinary retention. MUSCULOSKELETAL: denies weakness, joint pain, or bony pain SKIN: See HPI NEUROLOGIC: Denies weakness, headache, numbness, change in speech, confusion, seizures, incoordination. PSYCHIATRIC: No concerning psychosocial issues. 12 point review of systems is negative except for those stated above Patient History Medical History Anemia Asthma Atrial fibrillation by electrocardiography Bullous pemphigoid (~10/2019) Chickenpox Cholelithiasis Chronic kidney disease (CKD) stage G2/A1, mildly decreased glomerular filtration rate (GFR) between 60-89 mL/min/1.73 square meter and albuminuria creatinine ratio less than 30 mg/g (09/06/17) Chronic obstructive pulmonary disease (10/19/16) Class 1 obesity (09/05/16) Diverticulosis of colon (~12/2020) Eczema Environmental allergies (09/05/16) Fatigue due to sleep pattern disturbance Hepatitis B core antibody positive History of torn meniscus of right knee Hyperlipidemia (01/25/11) Hypertension (01/25/11) Hypothyroidism (~2007) Insomnia due to medical condition Measles Morbid obesity with body mass index (BMI) of 40.0 to 49.9 Osteoarthritis (01/25/11) Pacemaker (~05/2021) Pedal edema Persistent atrial fibrillation Pulmonary nodules/lesions, multiple Recurrent sinusitis (~1999) Seasonal allergies Sigmoid diverticulosis Snoring Surgical History Anesthesia History of foot surgery History of hip replacement (~2010) History of hip replacement (~2012) History of radiofrequency ablation procedure for cardiac arrhythmia (~07/2019) Polyp of nasal sinus Status post hysterectomy with oophorectomy (~1996) Family History Father Heart disease Hypertension Mother Heart disease Stroke Hypertension Diabetes mellitus Dementia Grandfather Cancer Grandmother No problems noted. Grandfather No problems noted. Grandmother No problems noted. Brother Pacemaker Social History marital status: household members: spouse occupational status: previously employed Smoking Status: Former smoker alcohol intake: current substance use type: does not use Smoking Status: Former smoker alcohol intake frequency: a few times a month Substance Use Type: does not use Exam Narrative Exam Narrative: GENERAL: [71] year old patient appears stated age. Well-developed patient, in mild distress. HEAD: Atraumatic. Normocephalic. EYES: Pupils equal round and reactive. Extraocular motions intact. No scleral icterus. No injection or drainage. ENT: Nose without bleeding, purulent drainage. Throat without erythema, tonsillar hypertrophy or exudate. Airway patent. NECK: Trachea midline. Non tender CARDIOVASCULAR: Regular rate and rhythm without murmurs, gallops, or rubs. RESPIRATORY: Clear to auscultation. Breath sounds equal bilaterally. No wheezes, rales, or rhonchi. GASTROINTESTINAL: Abdomen soft, non-tender, nondistended. EXTREMITIES: Left lower extremity with a red, warm and painful rash involving her foot and the majority of the posterior aspect of her lower extremity to the knee BACK: Nontender without deformity or crepitance. No flank tenderness. NEURO: AOx3. SKIN: No rash or erythema of visible areas Initial Vital Signs Initial Vital Signs: Vital Signs Temperature 98.9 F 04/15/22 18:21 Pulse Rate 68 04/15/22 18:21 Respiratory Rate 18 04/15/22 18:21 Blood Pressure 185/85 H 04/15/22 18:21 Pulse Oximetry 98 04/15/22 18:21 Oxygen Delivery Method 04/15/22 18:21 Course Orders Ordered: ED Orders 04/15/22 19:03 US periph venous low extrem lt Stat 04/15/22 21:12 CBC Auto Diff [Complete Blood Count AUTO DIFF] Stat CMP [Comprehensive Metabolic Panel] Stat Lactate (Lactic Acid) Stat 04/15/22 22:04 Blood Culture Stat Discontinued Medications Cefazolin Sodium (Cephalexin 250 Mg Prepack) 1 bottle MISC SEEINSTR ONE Stop: 04/15/22 22:09 Last Admin: 04/15/22 22:34 Dose: 1 pack Documented By: OCTAVIA Vital Signs Vital signs: Vital Signs - 8 hr 04/15/22 18:21 04/15/22 22:30 Temperature 98.9 F Pulse Rate 68 68 Respiratory Rate 18 18 Blood Pressure 185/85 H 162/67 H Pulse Oximetry 98 100 Oxygen Delivery Method Room Air Room Air MDM - Skin/Abscess/Foreign Bdy Lab Data Result diagrams: 04/15/22 21:12 04/15/22 21:12 Labs: Lab Results 04/15/22 04/15/22 04/15/22 Range/Units 21:12 21:12 21:12 WBC 9.9 (4.5-11.0) X10^3/uL RBC 4.80 (4.0-5.2) X10^6/uL Hgb 13.3 (12.0-16.0) g/dL Hct 40.9 (36-46) % MCV 85.3 (80-100) fL MCH 27.7 (26-34) PG MCHC 32.5 (30-36) % RDW 15.4 H (11.6-14.8) % Plt Count 191 (150-400) X10^3/uL Neut % (Auto) 75.8 H (50-75) % Lymph % (Auto) 9.4 L (25-40) % Preston % (Auto) 10.9 (3-14) % Eos % (Auto) 2.9 (2-4) % Baso % (Auto) 1.0 (0-2) % Neut # (Auto) 7500 H (8277-8697) /uL Lymph # (Auto) 900 L (8184-7959) /uL Preston # (Auto) 1100 H (0-900) /uL Eos # (Auto) 300 (0-450) /uL Baso # (Auto) 100 (0-100) /uL Sodium 137 (137-145) mmol/L Potassium 3.8 (3.4-5.1) mmol/L Chloride 100 (98-107) mmol/L Carbon Dioxide 29 (22-32) mmol/L BUN 17 (7-17) mg/dL Creatinine 0.96 (0.52-1.04) mg/dL Estimated GFR > 60 (>60) mL/min BUN/Creatinine Ratio 17.7 (6-22) Glucose 100 (80-110) mg/dL Lactate 1.1 (0.7-2.1) mmol/L Calcium 8.8 (8.4-10.2) mg/dL Total Bilirubin 0.7 (0.2-1.3) mg/dL AST 16 (14-36) IU/L ALT 11 (<35) IU/L Alkaline Phosphatase 113 (38-126) U/L Total Protein 7.0 (6.3-8.2) g/dL Albumin 3.9 (3.5-5.0) g/dL Globulin 3.1 (1.7-4.1) g/dL Albumin/Globulin Ratio 1.3 (1.0-2.8) MDM Narrative Medical decision making narrative: Patient presents with recurrence of left lower extremity pain, redness and discomfort. She has no evidence of systemic findings such as fever, chills nor nausea or vomiting. Labs are very reassuring, ultrasound demonstrates no clot. Antibiotics initiated tonight and remainder sent to her pharmacy of choice. She is given extensive return precautions and has had questions answered to her apparent satisfaction. Both her and understand and agree with the plan Discharge Plan Departure Patient Disposition: Home Clinical Impression: Cellulitis of left leg Instructions: DI for Cellulitis -- Adult Activity Restrictions/Additional Instructions: *You have been diagnosed with [left leg cellulitis. As we discussed your history and physical exam are reassuring and ultrasound shows no clot] *What to do: *Please continue to take your regular medications as directed. [x ] New medication prescriptions sent to your pharmacy: [ [facility]] [ ] New medication written as a paper prescription [ ] No new medications given *Please follow up with your primary care provider in 2-3 days, call for an appointment. Let them know you were seen in the Emergency Department and that we ask that you be seen in follow up. We will electronically transmit a record of today's note if your PCP is in our system *Return to Emergency Department if you should have any new, worsening or concerning symptoms, such as [fever greater than 101 F, shaking chills, worsening pain, persistent vomiting or other bothersome symptoms] Prescriptions: New cephalexin 500 mg capsule 500 mg PO Q6H 10 Days Qty: 40 0RF linezolid 600 mg tablet 600 mg PO BID Qty: 20 0RF No Action cyanocobalamin (vitamin B-12) 1,000 MCG tablet extended release 1,000 mcg PO DAILY Qty: 0 flecainide 50 mg tablet 100 mg PO BID pramipexole 0.125 mg tablet 0.125 mg PO BEDTIME Qty: 90 1RF Eliquis 5 mg tablet 5 mg PO BID Qty: 120 2RF gabapentin 600 mg tablet See Rx Instructions .ROUTE .COMPLEX Qty: 90 0RF Dose Instruction: TAKE 1 TABLET BY MOUTH ONCE DAILY AT BEDTIME Rx Instructions: TAKE 1 TABLET BY MOUTH ONCE DAILY AT BEDTIME tramadol 50 mg tablet 50 mg PO TID PRN (Reason: severe pain) Qty: 60 0RF Rx Instructions: Call for refills if/as needed. Caution regarding excessive sedation. atorvastatin 10 mg tablet See Rx Instructions .ROUTE .COMPLEX Qty: 90 0RF Dose Instruction: TAKE ONE TABLET BY MOUTH ONE TIME DAILY AT BEDTIME Rx Instructions: TAKE ONE TABLET BY MOUTH ONE TIME DAILY AT BEDTIME levothyroxine 75 mcg tablet See Rx Instructions .ROUTE .COMPLEX Qty: 90 0RF Dose Instruction: TAKE ONE TABLET BY MOUTH ONE TIME DAILY FOR 6 DAYS PER WEEK Rx Instructions: TAKE ONE TABLET BY MOUTH ONE TIME DAILY FOR 6 DAYS PER WEEK potassium chloride 10 mEq tablet,ER particles/crystals 10 meq PO BEDTIME Label Comments: TAKE ONE TABLET BY MOUTH ONE TIME DAILY. doxepin 10 mg capsule 10 mg PO BEDTIME Label Comments: TAKE ONE CAPSULE BY MOUTH EVERY NIGHT FOR ONE WEEK. MAY INCREASE TO TWO CAPSULES AT NIGHT FOR ONE WEEK AND THEN THREE CAPSULES NIGHTLY IF SHE IS TOLERATING metoprolol succinate 50 mg tablet extended release 24 hr 100 mg PO BID albuterol sulfate [Ventolin HFA] 90 mcg/actuation HFA aerosol inhaler 2 - 4 puff inhalation Q4H PRN (Reason: Shortness Of Breath) Qty: 8.5 0RF ferrous sulfate 325 mg (65 mg iron) tablet 325 mg PO Q OTHER DAY mycophenolate mofetil 500 mg tablet 1,000 mg PO BID Label Comments: TAKE TWO TABLETS BY MOUTH TWICE DAILY omeprazole magnesium [Prilosec OTC] 20 mg Tablet,Delayed Release (Dr/Ec) 20 mg PO DAILY losartan 50 mg tablet 50 mg PO DAILY Referrals: Mike Gallo MD [Primary Care Provider] - Visit Report Forms: Patient Portal/API
[2022-04-15 21:30] LABS: Add Manual Diff / Slide Review NO; Basophils Absolute Auto 100 /uL (0-100); Eosinophils Absolute Auto 300 /uL (0-450); Eosinophils Percent Auto 2.9 % (2-4); Hematocrit 40.9 % (36-46); Hemoglobin 13.3 g/dL (12.0-16.0); Lymphocytes Absolute Auto 900 /uL (1100-4500); Lymphocytes Percent Auto 9.4 % (25-40); Mean Corpuscular HGB Conc 32.5 % (30-36); Mean Corpuscular Hemoglobin 27.7 PG (26-34); Mean Corpuscular Volume 85.3 fL (80-100); Monocytes Absolute Auto 1100 /uL (0-900); Monocytes Percent Auto 10.9 % (3-14); Neutrophils Absolute Auto 7500 /uL (1500-7000); Neutrophils Percent Auto 75.8 % (50-75); Platelet Count 191 X10^3/uL (150-400); Red Cell Distribution Width 15.4 % (11.6-14.8); White Blood Cell Count 9.9 X10^3/uL (4.5-11.0)
[2022-04-15 21:47] LABS: Alanine Aminotransferase 11 IU/L (<35); Albumin 3.9 g/dL (3.5-5.0); Albumin Globulin Ratio 1.3 (1.0-2.8); Alkaline Phosphatase 113 U/L (38-126); Aspartate Aminotransferase 16 IU/L (14-36); BUN Creatinine Ratio 17.7 (6-22); Bilirubin Total 0.7 mg/dL (0.2-1.3); Blood Urea Nitrogen 17 mg/dL (7-17); Calcium 8.8 mg/dL (8.4-10.2); Carbon Dioxide 29 mmol/L (22-32); Chloride 100 mmol/L (98-107); Estimated Glomerular Filt Rate > 60 mL/min (>60); Globulin 3.1 g/dL (1.7-4.1); Glucose 100 mg/dL (80-110); HEMOLYSIS < 15 (0-50); Lactate (Lactic Acid) 1.1 mmol/L (0.7-2.1); Potassium 3.8 mmol/L (3.4-5.1); Sodium 137 mmol/L (137-145)
[2022-04-15 22:30] VITALS: BP 162/67; PULSE 68; RESP 18; O2SAT 100
[2022-04-15] MEDS: cephALEXin 250 MG PREPACK 1 BOTTLE MISC (22:34)
== END 2022-04-15 22:35 | disposition home or self-care (01) ==
PROVIDERS: Emergency Provider Emergency Medicine; Family Provider Student in an Organized Health Care Education/Training Program; PCP Pediatrics
DX: L03.116 Cellulitis of left lower limb (principal)
CPT/HCPCS: 36415; 80053; 83605; 85025; 87040; 93971; 99283

== ENCOUNTER → 2022-04-29 08:44 | Outpatient (CLI) | payer MEDICARE, SELFPAY ==
[2022-04-27 17:23] VITALS: BMI 39.4
== END ==
PROVIDERS: PCP Pediatrics; Referring Provider Pediatrics; Visit Provider Family Medicine
DX: L97.822 Non-pressure chronic ulcer of other part of left lower leg with fat layer exposed (principal); L12.0 Bullous pemphigoid; I50.9 Heart failure, unspecified; R60.9 Edema, unspecified; I48.91 Unspecified atrial fibrillation; Z79.01 Long term (current) use of anticoagulants; I26.99 Other pulmonary embolism without acute cor pulmonale; Z95.0 Presence of cardiac pacemaker
CPT/HCPCS: 11042; 99213

== ENCOUNTER → 2022-05-06 10:59 | Outpatient (CLI) | payer MEDICARE, SELFPAY ==
[2022-04-27 17:23] VITALS: BMI 39.4
== END ==
PROVIDERS: PCP Family Medicine; Referring Provider Family Medicine; Visit Provider Nurse Practitioner Family
DX: L12.0 Bullous pemphigoid (principal)
CPT/HCPCS: 99213

== ENCOUNTER → 2022-05-13 10:19 | Outpatient (CLI) | payer MEDICARE, SELFPAY ==
[2022-04-27 17:23] VITALS: BMI 39.4
== END ==
PROVIDERS: PCP Family Medicine; Referring Provider Emergency Medicine; Visit Provider Nurse Practitioner Family
DX: L12.0 Bullous pemphigoid (principal)
CPT/HCPCS: 99213

== ENCOUNTER → 2022-05-20 11:25 | Outpatient (CLI) | payer MEDICARE, SELFPAY ==
[2022-04-27 17:23] VITALS: BMI 39.4
== END ==
PROVIDERS: PCP Family Medicine; Referring Provider Family Medicine; Visit Provider Nurse Practitioner Family
DX: L97.822 Non-pressure chronic ulcer of other part of left lower leg with fat layer exposed (principal); L12.0 Bullous pemphigoid; R60.0 Localized edema; Z79.01 Long term (current) use of anticoagulants
CPT/HCPCS: 97597; 99213

== ENCOUNTER → 2022-06-03 10:08 | Outpatient (CLI) | payer MEDICARE, SELFPAY ==
[2022-04-27 17:23] VITALS: BMI 39.4
== END ==
PROVIDERS: PCP Family Medicine; Referring Provider Family Medicine; Visit Provider Nurse Practitioner Family
DX: L97.822 Non-pressure chronic ulcer of other part of left lower leg with fat layer exposed (principal); L12.0 Bullous pemphigoid
CPT/HCPCS: 15271; 15272; 99213; Q4196

== ENCOUNTER 2022-06-06 14:52 | Emergency (ER) | payer MEDICARE, SELFPAY ==
[2022-04-27 17:23] VITALS: BMI 39.4
[2022-06-06 15:07] VITALS: BP 197/92; PULSE 65; RESP 18; TEMP 36.6; O2SAT 97; BMI 38.4
--- NOTE | 2022-06-06 15:13 | DI.US.S_ITS ---
PROCEDURE: US PERIPH VENOUS LOW EXTREM RT INDICATIONS: PAIN, EDEMA TECHNIQUE: Real-time imaging, as well as color and pulse Doppler interrogation, were performed of the lower extremity deep veins from the inguinal ligament to the popliteal fossa. COMPARISON: None. FINDINGS: The common femoral, femoral and popliteal veins are normally compressible, and free of intraluminal thrombus. Color and pulse Doppler demonstrate normal phasic intraluminal flow. There is normal augmentation response to distal compression maneuver. IMPRESSION: No sonographic evidence of DVT. Dictated by: Nuno Oliver M.D. on 06/06/2022 at 15:06 Approved by: Nuno Oliver M.D. on 06/06/2022 at 15:06
== END 2022-06-06 18:35 | disposition left against medical advice (07) ==
PROVIDERS: Emergency Provider Emergency Medicine; PCP Family Medicine
DX: R60.9 Edema, unspecified (principal)
CPT/HCPCS: 93971; 99281

== ENCOUNTER → 2022-06-10 10:32 | Outpatient (CLI) | payer MEDICARE, SELFPAY ==
[2022-04-27 17:23] VITALS: BMI 39.4
== END ==
PROVIDERS: PCP Family Medicine; Referring Provider Family Medicine; Visit Provider Nurse Practitioner Family
DX: L97.822 Non-pressure chronic ulcer of other part of left lower leg with fat layer exposed (principal); L12.0 Bullous pemphigoid; R60.9 Edema, unspecified
CPT/HCPCS: 15271; 15272; Q4196

== ENCOUNTER → 2022-06-17 11:07 | Outpatient (CLI) | payer MEDICARE, SELFPAY ==
[2022-04-27 17:23] VITALS: BMI 39.4
== END ==
PROVIDERS: PCP Family Medicine; Referring Provider Emergency Medicine; Visit Provider Nurse Practitioner Family
DX: L97.822 Non-pressure chronic ulcer of other part of left lower leg with fat layer exposed (principal); L12.0 Bullous pemphigoid; Z79.01 Long term (current) use of anticoagulants; R60.0 Localized edema; L53.9 Erythematous condition, unspecified
CPT/HCPCS: 15271; Q4196

== ENCOUNTER 2022-07-04 13:36 | Emergency (ER) | payer MEDICARE, SELFPAY ==
[2022-04-27 17:23] VITALS: BMI 39.4
[2022-07-04] VITALS (7 sets, daily range): BP systolic 139–165; BP diastolic 74–109; PULSE 108–125; RESP 15–24; TEMP 36.3; O2SAT 96–97; BMI 37.4
--- NOTE | 2022-07-04 14:35 | DI.US.S_ITS ---
PROCEDURE: US PERIP VENOUS LOW EXTREM LT INDICATIONS: EDEMA TECHNIQUE: Real-time imaging, as well as color and pulse Doppler interrogation, were performed of the lower extremity deep veins from the inguinal ligament to the popliteal fossa. COMPARISON: [facility], [facility] VENOUS LOW EXTREM LT, 04/15/2022, 19:18. FINDINGS: The common femoral, femoral and popliteal veins are normally compressible, and free of intraluminal thrombus. Color and pulse Doppler demonstrate normal phasic intraluminal flow. There is normal augmentation response to distal compression maneuver. IMPRESSION: Negative for deep venous thrombosis. Dictated by: Jean Lanier M.D. on 07/04/2022 at 14:32 Approved by: Jean Lanier M.D. on 07/04/2022 at 14:32
--- NOTE | 2022-07-04 14:41 | DI.RAD.S_ITS ---
PROCEDURE: XR CHEST 1V INDICATIONS: suspected sepsis TECHNIQUE: One view of the chest was acquired. COMPARISON: [facility], , US PERIPH VENOUS LOW EXTREM LT, 07/04/2022, 15:10. [facility], CR, XR CHEST 2V, 07/07/2021, 15:46. [facility], CR, XR CHEST 2V, 06/14/2021, 17:55. FINDINGS: Surgical changes and devices: A pacer device is seen. Lungs and pleura: On this semiupright portable chest examination, no large pneumothorax is seen. There is blunting of the left costophrenic angle. No focal infiltrates are seen. Mediastinum: Mediastinal contours appear normal. Heart size is normal. Bones and chest wall: No suspicious bony lesions. Overlying soft tissues appear unremarkable. IMPRESSION: Small left-sided pleural effusion. No focal infiltrates are seen. Dictated by: Jean Lanier M.D. on 07/04/2022 at 15:24 Approved by: Jean Lanier M.D. on 07/04/2022 at 15:26
[2022-07-04 15:14] LABS: Add Manual Diff / Slide Review NO; Basophils Absolute Auto 0 /uL (0-100); Basophils Percent Auto 0.4 % (0-2); Eosinophils Absolute Auto 0 /uL (0-450); Eosinophils Percent Auto 0.3 % (2-4); Hematocrit 45.2 % (36-46); Hemoglobin 14.5 g/dL (12.0-16.0); Lymphocytes Absolute Auto 700 /uL (1100-4500); Lymphocytes Percent Auto 8.2 % (25-40); Mean Corpuscular Hemoglobin 26.8 PG (26-34); Mean Corpuscular Volume 83.7 fL (80-100); Monocytes Absolute Auto 900 /uL (0-900); Monocytes Percent Auto 10.3 % (3-14); Neutrophils Absolute Auto 7200 /uL (1500-7000); Neutrophils Percent Auto 80.8 % (50-75); Platelet Count 179 X10^3/uL (150-400); Red Cell Distribution Width 15.2 % (11.6-14.8); White Blood Cell Count 8.9 X10^3/uL (4.5-11.0)
[2022-07-04 15:17] LABS: INR 1.6 (0.9-1.3); Prothrombin Time 18.9 SECONDS (10.1-12.7)
[2022-07-04 15:20] LABS: PTT Partial Thromboplastin Tim 31 SECONDS (26-36)
[2022-07-04 15:25] LABS: Alanine Aminotransferase 21 IU/L (<35); Albumin 3.4 g/dL (3.5-5.0); Alkaline Phosphatase 98 U/L (38-126); Aspartate Aminotransferase 33 IU/L (14-36); Bilirubin Total 1.1 mg/dL (0.2-1.3); Blood Urea Nitrogen 17 mg/dL (7-17); Calcium 8.7 mg/dL (8.4-10.2); Carbon Dioxide 28 mmol/L (22-32); Chloride 96 mmol/L (98-107); Creatine Kinase 122 U/L (30-135); Estimated Glomerular Filt Rate > 60 mL/min (>60); Globulin 3.5 g/dL (1.7-4.1); Glucose 84 mg/dL (80-110); HEMOLYSIS < 15 (0-50); Lipase 53 U/L (23-300); Potassium 3.2 mmol/L (3.4-5.1); Sodium 135 mmol/L (137-145); Total Protein 6.9 g/dL (6.3-8.2)
[2022-07-04 15:36] LABS: Troponin I 0.021 ng/mL (0.01-0.034)
[2022-07-04 15:41] LABS: CKMB % Relative Index 1.2 % (1.5-5.0); Creatine Kinase MB 1.46 ng/mL (<2.37)
[2022-07-04 16:35] LABS: COVID19 -Nasal RAPID Negative (Negative)
--- NOTE | 2022-07-04 16:46 | DI.RAD.S_ITS ---
PROCEDURE: XR FEMUR LT MIN 2V INDICATIONS: cellulitis, eval left leg/knee for sub q air TECHNIQUE: 2 views of the femur were acquired. COMPARISON: [facility], , XR TIBIA FIBULA LT 2V, 07/04/2022, 16:49. [facility], , US PERIPH VENOUS LOW EXTREM LT, 07/04/2022, 15:10. [facility], CR, XR CHEST 1V, 07/04/2022, 14:47. FINDINGS: Bones: No fractures or dislocations. No suspicious bony lesions. Left hip arthroplasty hardware is seen. Degenerative changes are seen, particularly involving the knee. Soft tissues: Distal soft tissue swelling is seen. No soft tissue gas is seen by plain film. IMPRESSION: Distal soft tissue swelling, without gas seen by plain film. Dictated by: Jean Lanier M.D. on 07/04/2022 at 16:33 Approved by: Jean Lanier M.D. on 07/04/2022 at 16:34
--- NOTE | 2022-07-04 16:46 | DI.RAD.S_ITS ---
PROCEDURE: XR TIBIA FIBULA LT 2V INDICATIONS: cellulitis, eval left leg/knee for sub q air TECHNIQUE: 2 views of the tibia and fibula were acquired. COMPARISON: [facility], , XR FEMUR LT MIN 2V, 07/04/2022, 16:49. [facility], , US PERIPH VENOUS LOW EXTREM LT, 07/04/2022, 15:10. [facility], CR, XR TIBIA FIBULA LT 2V, 11/12/2021, 18:21. FINDINGS: Bones: No fractures or dislocations. No suspicious bony lesions. Age-appropriate bony degenerative changes are seen. Soft tissues: Generalized soft tissue swelling is seen. By plain film, no soft tissue gas is seen. IMPRESSION: Soft tissue swelling is seen, without soft tissue gas seen by plain film. Dictated by: Jean Lanier M.D. on 07/04/2022 at 16:32 Approved by: Jean Lanier M.D. on 07/04/2022 at 16:33
--- NOTE | 2022-07-04 16:49 | ED_ITS ---
HPI - Extremity Problem <Jud Eckert, TRANSACTION MANAGER - Last Filed: 07/07/22 12:22> General Chief complaint: Extremity Problem,Nontraumatic Stated complaint: cough, swollen red lt leg Time Seen by Provider: 07/04/22 16:35 Source: patient and family Mode of arrival: Family Vehicle Related Data Home Medications Medication Instructions Recorded Confirmed cyanocobalamin (vitamin B-12) 1,000 mcg PO DAILY ##0 08/05/16 04/29/22 1,000 mcg tablet,extended release omeprazole magnesium 20 mg 20 mg PO DAILY 06/07/18 04/29/22 tablet,delayed release (Prilosec OTC) losartan 50 mg tablet 50 mg PO DAILY 12/25/18 04/29/22 flecainide 50 mg tablet 100 mg PO BID 06/14/21 04/29/22 metoprolol succinate 50 mg 100 mg PO BID 07/07/21 04/29/22 tablet,extended release 24 hr potassium chloride 10 mEq 10 meq PO BEDTIME 07/07/21 04/29/22 tablet,extended release(part/cryst) ferrous sulfate 325 mg (65 mg 325 mg PO Q OTHER DAY 08/18/21 04/29/22 iron) tablet mycophenolate mofetil 500 mg tablet 1,000 mg PO BID 02/06/22 04/29/22 Previous Rx's Medication Instructions Recorded albuterol sulfate 90 mcg/actuation 2 - 4 puff inhalation Q4H PRN 04/08/20 aerosol inhaler (Ventolin HFA) Shortness Of Breath #8.5 grams apixaban 5 mg tablet (Eliquis) 5 mg PO BID #120 tabs 12/29/21 levothyroxine 75 mcg tablet See Rx Instructions .Route 04/07/22 .COMPLEX #90 tabs pramipexole 0.125 mg tablet 0.125 mg PO BEDTIME #90 tabs 05/13/22 gabapentin 600 mg tablet See Rx Instructions .Route 05/18/22 .COMPLEX #90 tabs atorvastatin 10 mg tablet See Rx Instructions .Route 06/06/22 .COMPLEX #90 tabs tramadol 50 mg tablet 50 mg PO BID PRN severe pain #60 07/01/22 tabs doxycycline hyclate 100 mg capsule 100 mg PO BID 10 days #20 caps 07/04/22 Allergies Allergy/AdvReac Type Severity Reaction Status Date / Time No Known Drug Allergies Allergy Verified 06/06/22 15:07 Patient History <Jud Eckert [facility] - Last Filed: 07/07/22 12:22> Medical History Anemia Asthma Atrial fibrillation by electrocardiography Bullous pemphigoid (~10/2019) Chickenpox Cholelithiasis Chronic kidney disease (CKD) stage G2/A1, mildly decreased glomerular filtration rate (GFR) between 60-89 mL/min/1.73 square meter and albuminuria creatinine ratio less than 30 mg/g (09/06/17) Chronic obstructive pulmonary disease (10/19/16) Class 1 obesity (09/05/16) Diverticulosis of colon (~12/2020) Eczema Environmental allergies (09/05/16) Fatigue due to sleep pattern disturbance Hepatitis B core antibody positive History of torn meniscus of right knee Hyperlipidemia (01/25/11) Hypertension (01/25/11) Hypothyroidism (~2007) Insomnia due to medical condition Measles Morbid obesity with body mass index (BMI) of 40.0 to 49.9 Osteoarthritis (01/25/11) Pacemaker (~05/2021) Pedal edema Persistent atrial fibrillation Pulmonary nodules/lesions, multiple Recurrent sinusitis (~1999) Seasonal allergies Sigmoid diverticulosis Snoring Surgical History Anesthesia History of foot surgery History of hip replacement (~2010) History of hip replacement (~2012) History of radiofrequency ablation procedure for cardiac arrhythmia (~07/2019) Polyp of nasal sinus Status post hysterectomy with oophorectomy (~1996) Family History Father Heart disease Hypertension Mother Heart disease Stroke Hypertension Diabetes mellitus Dementia Grandfather Cancer Grandmother No problems noted. Grandfather No problems noted. Grandmother No problems noted. Brother Pacemaker Social History marital status: household members: spouse occupational status: previously employed Smoking Status: Former smoker alcohol intake: current substance use type: does not use Smoking Status: Former smoker tobacco type: cigarettes alcohol intake frequency: a few times a month Substance Use Type: does not use Exam <ISELA Roque - Last Filed: 07/07/22 12:22> Initial Vital Signs Initial Vital Signs: Vital Signs Temperature 97.3 F L 07/04/22 14:36 Pulse Rate 112 H 07/04/22 14:36 Respiratory Rate 24 07/04/22 14:36 Blood Pressure 165/109 H 07/04/22 14:36 Pulse Oximetry 96 07/04/22 14:36 Oxygen Delivery Method 07/04/22 14:36 <Varinder Hanson MD - Last Filed: 07/13/22 21:47> Initial Vital Signs Initial Vital Signs: Vital Signs Temperature 97.3 F L 07/04/22 14:36 Pulse Rate 112 H 07/04/22 14:36 Respiratory Rate 24 07/04/22 14:36 Blood Pressure 165/109 H 07/04/22 14:36 Pulse Oximetry 96 07/04/22 14:36 Oxygen Delivery Method 07/04/22 14:36 Course <ISELA Roque - Last Filed: 07/07/22 12:22> Orders Ordered: Discontinued Medications Doxycycline Hyclate (Doxycycline Hyclate 100 Mg Tablet) 100 mg PO NOW ONE Stop: 07/04/22 16:46 Last Admin: 07/04/22 17:21 Dose: 100 mg Documented By: OCTAVIA Ceftriaxone Sodium 2,000 mg/ (Sodium Chloride) 100 mls @ 200 mls/hr IV NOW ONE Stop: 07/04/22 16:46 Last Infusion: 07/04/22 18:04 Dose: 0 mls/hr Documented By: Admin: 07/04/22 17:21 Dose: 200 mls/hr Documented By: OCTAVIA Potassium Chloride (Potassium Chloride 20 Meq/15 Ml Udc) 40 meq PO NOW ONE Stop: 07/04/22 16:51 Last Admin: 07/04/22 17:21 Dose: 40 meq Documented By: OCTAVIA Vital Signs Vital signs: Vital Signs - 8 hr 07/04/22 14:36 Temperature 97.3 F L Pulse Rate 112 H Respiratory Rate 24 Blood Pressure 165/109 H Pulse Oximetry 96 Oxygen Delivery Method Room Air <Varinder Hanson MD - Last Filed: 07/13/22 21:47> Orders Ordered: Discontinued Medications Doxycycline Hyclate (Doxycycline Hyclate 100 Mg Tablet) 100 mg PO NOW ONE Stop: 07/04/22 16:46 Last Admin: 07/04/22 17:21 Dose: 100 mg Documented By: OCTAVIA Ceftriaxone Sodium 2,000 mg/ (Sodium Chloride) 100 mls @ 200 mls/hr IV NOW ONE Stop: 07/04/22 16:46 Last Infusion: 07/04/22 18:04 Dose: 0 mls/hr Documented By: Admin: 07/04/22 17:21 Dose: 200 mls/hr Documented By: OCTAVIA Potassium Chloride (Potassium Chloride 20 Meq/15 Ml Udc) 40 meq PO NOW ONE Stop: 07/04/22 16:51 Last Admin: 07/04/22 17:21 Dose: 40 meq Documented By: OCTAVIA Vital Signs Vital signs: Vital Signs - 8 hr 07/04/22 14:36 Temperature 97.3 F L Pulse Rate 112 H Respiratory Rate 24 Blood Pressure 165/109 H Pulse Oximetry 96 Oxygen Delivery Method Room Air MDM - Extremity (Nontraumatic) <ISELA Roque - Last Filed: 07/07/22 12:22> Lab Data Lab results narrative: [facility] CLIA ID [id number] [address] [place] [address] RUN DATE: 07/04/22 Specimen Inquiry PAGE 1 RUN TIME: 164 Name: Mishel Reeder Age/Sex: 71/F Attend Dr: Jaime Sung D.O. Unit#: [id number] : 1950Location: AC 209-1 Re02/05/22 Disch: 02/06/22 Status: DIS INOo SPEC #: [id number] NEAL: 02/05/22 STATUS: COMP REQ #: [id number] SPDESC: RECD: 02/05/[address]: Lj Bean D.O. SOURCE: Leg Lt ENTR: 02/05/[address]: Brent Dumont MD FAX TO: ORDERED: WOUND Cx and GS Procedure Result Verified Site Gram Stain Final 02/05/222148 White blood cells Occasional WBC seen Gram Positive Cocci 3+ Aerobic Culture for wounds Final 02/08/22737 Organism 1 Staphylococcus aureus Growth HEAVY 1. Staphylococcus aureus M.I.C. RX --------- --- * Daptomycin 0.5 S * Vancomycin <=0.5 S * Ciprofloxacin <=0.5 S * Clindamycin 0.25 S * Doxycycline <=0.5 S * Erythromycin <=0.25 S * Gentamicin <=0.5 S * Levofloxacin 0.25 S * Linezolid 2 S * Moxifloxacin <=0.25 S * Oxacillin Noe 0.5 S * Rifampin <=0.5 S * Tetracycline <=1 S * Trimethoprim/Sulfamethoxazole <=10 S Anaerobic Culture Final 02/06/22- 1145 Test not performed Result diagrams: 07/04/22 14:43 07/04/22 14:43 Labs: Lab Results 07/04/22 07/04/22 07/04/22 Range/Units 14:43 14:43 14:43 WBC 8.9 (4.5-11.0) X10^3/uL RBC 5.40 H (4.0-5.2) X10^6/uL Hgb 14.5 (12.0-16.0) g/dL Hct 45.2 (36-46) % MCV 83.7 (80-100) fL MCH 26.8 (26-34) PG MCHC 32.0 (30-36) % RDW 15.2 H (11.6-14.8) % Plt Count 179 (150-400) X10^3/uL Neut % (Auto) 80.8 H (50-75) % Lymph % (Auto) 8.2 L (25-40) % Lassen % (Auto) 10.3 (3-14) % Eos % (Auto) 0.3 L (2-4) % Baso % (Auto) 0.4 (0-2) % Neut # (Auto) 7200 H (6236-6933) /uL Lymph # (Auto) 700 L (0548-7526) /uL Lassen # (Auto) 900 (0-900) /uL Eos # (Auto) 0 (0-450) /uL Baso # (Auto) 0 (0-100) /uL PT 18.9 H (10.1-12.7) SECONDS INR 1.6 H (0.9-1.3) APTT 31 (26-36) SECONDS Sodium 135 L (137-145) mmol/L Potassium 3.2 L (3.4-5.1) mmol/L Chloride 96 L (98-107) mmol/L Carbon Dioxide 28 (22-32) mmol/L BUN 17 (7-17) mg/dL Creatinine 0.74 (0.52-1.04) mg/dL Estimated GFR > 60 (>60) mL/min BUN/Creatinine Ratio 23.0 H (6-22) Glucose 84 (80-110) mg/dL Lactate (0.7-2.1) mmol/L Calcium 8.7 (8.4-10.2) mg/dL Total Bilirubin 1.1 (0.2-1.3) mg/dL AST 33 (14-36) IU/L ALT 21 (<35) IU/L Alkaline Phosphatase 98 (38-126) U/L Total Creatine Kinase (30-135) U/L CK-MB (CK-2) (<2.37) ng/mL CK-MB (CK-2) Rel Index (1.5-5.0) % Troponin I (0.01-0.034) ng/mL Total Protein 6.9 (6.3-8.2) g/dL Albumin 3.4 L (3.5-5.0) g/dL Globulin 3.5 (1.7-4.1) g/dL Albumin/Globulin Ratio 1.0 (1.0-2.8) Lipase 53 (23-300) U/L Procalcitonin 0.10 (<0.5) ng/mL Urine RBC (0-5/HPF) Urine WBC (0-5/HPF) Urine Bacteria (None) Urine Mucus (Negative) Ur Culture Indicated? SARS-CoV-2 (PCR) (Negative) Influenza A (RT-PCR) (NEGATIVE) Influenza B (RT-PCR) (NEGATIVE) RSV (PCR) (Negative) 07/04/22 07/04/22 07/04/22 Range/Units 14:43 14:43 14:43 WBC (4.5-11.0) X10^3/uL RBC (4.0-5.2) X10^6/uL Hgb (12.0-16.0) g/dL Hct (36-46) % MCV (80-100) fL MCH (26-34) PG MCHC (30-36) % RDW (11.6-14.8) % Plt Count (150-400) X10^3/uL Neut % (Auto) (50-75) % Lymph % (Auto) (25-40) % Lassen % (Auto) (3-14) % Eos % (Auto) (2-4) % Baso % (Auto) (0-2) % Neut # (Auto) (2747-4105) /uL Lymph # (Auto) (1251-0939) /uL Lassen # (Auto) (0-900) /uL Eos # (Auto) (0-450) /uL Baso # (Auto) (0-100) /uL PT (10.1-12.7) SECONDS INR (0.9-1.3) APTT (26-36) SECONDS Sodium (137-145) mmol/L Potassium (3.4-5.1) mmol/L Chloride (98-107) mmol/L Carbon Dioxide (22-32) mmol/L BUN (7-17) mg/dL Creatinine (0.52-1.04) mg/dL Estimated GFR (>60) mL/min BUN/Creatinine Ratio (6-22) Glucose (80-110) mg/dL Lactate 1.0 (0.7-2.1) mmol/L Calcium (8.4-10.2) mg/dL Total Bilirubin (0.2-1.3) mg/dL AST (14-36) IU/L ALT (<35) IU/L Alkaline Phosphatase (38-126) U/L Total Creatine Kinase 122 (30-135) U/L CK-MB (CK-2) 1.46 (<2.37) ng/mL CK-MB (CK-2) Rel Index 1.2 L (1.5-5.0) % Troponin I 0.021 (0.01-0.034) ng/mL Total Protein (6.3-8.2) g/dL Albumin (3.5-5.0) g/dL Globulin (1.7-4.1) g/dL Albumin/Globulin Ratio (1.0-2.8) Lipase (23-300) U/L Procalcitonin (<0.5) ng/mL Urine RBC (0-5/HPF) Urine WBC (0-5/HPF) Urine Bacteria (None) Urine Mucus (Negative) Ur Culture Indicated? SARS-CoV-2 (PCR) Negative (Negative) Influenza A (RT-PCR) (NEGATIVE) Influenza B (RT-PCR) (NEGATIVE) RSV (PCR) (Negative) 07/04/22 07/04/22 Range/Units 17:19 17:19 WBC (4.5-11.0) X10^3/uL RBC (4.0-5.2) X10^6/uL Hgb (12.0-16.0) g/dL Hct (36-46) % MCV (80-100) fL MCH (26-34) PG MCHC (30-36) % RDW (11.6-14.8) % Plt Count (150-400) X10^3/uL Neut % (Auto) (50-75) % Lymph % (Auto) (25-40) % Lassen % (Auto) (3-14) % Eos % (Auto) (2-4) % Baso % (Auto) (0-2) % Neut # (Auto) (7113-4647) /uL Lymph # (Auto) (4683-5360) /uL Lassen # (Auto) (0-900) /uL Eos # (Auto) (0-450) /uL Baso # (Auto) (0-100) /uL PT (10.1-12.7) SECONDS INR (0.9-1.3) APTT (26-36) SECONDS Sodium (137-145) mmol/L Potassium (3.4-5.1) mmol/L Chloride (98-107) mmol/L Carbon Dioxide (22-32) mmol/L BUN (7-17) mg/dL Creatinine (0.52-1.04) mg/dL Estimated GFR (>60) mL/min BUN/Creatinine Ratio (6-22) Glucose (80-110) mg/dL Lactate (0.7-2.1) mmol/L Calcium (8.4-10.2) mg/dL Total Bilirubin (0.2-1.3) mg/dL AST (14-36) IU/L ALT (<35) IU/L Alkaline Phosphatase (38-126) U/L Total Creatine Kinase (30-135) U/L CK-MB (CK-2) (<2.37) ng/mL CK-MB (CK-2) Rel Index (1.5-5.0) % Troponin I (0.01-0.034) ng/mL Total Protein (6.3-8.2) g/dL Albumin (3.5-5.0) g/dL Globulin (1.7-4.1) g/dL Albumin/Globulin Ratio (1.0-2.8) Lipase (23-300) U/L Procalcitonin (<0.5) ng/mL Urine RBC 0-1/hpf D (0-5/HPF) Urine WBC 5-10/hpf H (0-5/HPF) Urine Bacteria Occasional (0-1) (None) Urine Mucus 1+ H (Negative) Ur Culture Indicated? Specimen cultured SARS-CoV-2 (PCR) Negative (Negative) Influenza A (RT-PCR) Flu a positive H (NEGATIVE) Influenza B (RT-PCR) Flu b negative (NEGATIVE) RSV (PCR) Negative (Negative) Urine Dip Bedside Urine Glucose Negative Bedside Urine Bilirubin - Negative Bedside Urine Ketone +/- 5 Urine Specific [place] 1.015 Bedside Urine Occult Blood +/- Bedside Urine pH 6.0 Bedside Urine Protein + 30 Bedside Urine Urobilinogen - Negative Bedside Urine Nitrite - Negative Bedside Urine Leukocytes - Negative Esterase Imaging Data Chest x-ray: Radiologist's Impression: PROCEDURE:? XR CHEST 1V ? INDICATIONS:? suspected sepsis ? TECHNIQUE:? One view of the chest was acquired.? ? COMPARISON:? [facility], , US PERIPH VENOUS LOW EXTREM LT, 07/04/2022, 15:10.? [facility], , XR CHEST 2V, 07/07/2021, 15:46.? [facility], , XR CHEST 2V, 06/14/2021, 17:55. ? FINDINGS:? ? Surgical changes and devices:? A pacer device is seen.? ? Lungs and pleura:? On this semiupright portable chest examination, no large pneumothorax is seen.? There is blunting of the left costophrenic angle.? No focal infiltrates are seen.? ? Mediastinum:? Mediastinal contours appear normal.? Heart size is normal.? ? Bones and chest wall:? No suspicious bony lesions.? Overlying soft tissues appear unremarkable.? ? IMPRESSION:? Small left-sided pleural effusion. ? No focal infiltrates are seen. ? ? Dictated by: Jean Lanier M.D. on 07/04/2022 at 15:24 ? ? Approved by: Jean Lanier M.D. on 07/04/2022 at 15:26 ? US - DVT: Radiologist's Impression: PROCEDURE:? US PERIPH VENOUS LOW EXTREM LT ? INDICATIONS:? EDEMA ? TECHNIQUE:? Real-time imaging, as well as color and pulse Doppler interrogation, were perf ormed of the lower extremity deep veins from the inguinal ligament to the popliteal fossa.? ? COMPARISON:? [facility] PERIP VENOUS LOW EXTREM LT, 04/15/2022, 19:18. ? FINDINGS:? The common femoral, femoral and popliteal veins are normally compressible, and free of intraluminal thrombus.? Color and pulse Doppler demonstrate normal phasic intraluminal flow.? There is normal augmentation response to distal compression maneuver. ? ? IMPRESSION:? ? Negative for deep venous thrombosis. ? ? Dictated by: Jean Lanier M.D. on 07/04/2022 at 14:32 ? ? Approved by: Jean Lanier M.D. on 07/04/2022 at 14:32 ? Extremity x-ray #2: Radiologist's Impression: PROCEDURE:? XR TIBIA FIBULA LT 2V ? INDICATIONS:? cellulitis, eval left leg/knee for sub q air ? TECHNIQUE:? 2 views of the tibia and fibula were acquired.? ? COMPARISON:? [facility], CR, XR FEMUR LT MIN 2V, 07/04/2022, 16:49.? [facility] PERIP VENOUS LOW EXTREM LT, 07/04/2022, 15:10.? [facility], CR, XR TIBIA FIBULA LT 2V, 11/12/2021, 18:21. ? FINDINGS:? ? Bones:? No fractures or dislocations.? No suspicious bony lesions.? Age-appropri ate bony degenerative changes are seen.? ? Soft tissues:? Generalized soft tissue swelling is seen.? By plain film, no soft tissue gas is seen. ? ? IMPRESSION:? ? Soft tissue swelling is seen, without soft tissue gas seen by plain film. ? ? Dictated by: Jean Lanier M.D. on 07/04/2022 at 16:32 ? ? Approved by: Jean Lanier M.D. on 07/04/2022 at 16:33 ? Extremity x-ray #1: Radiologist's Impression: PROCEDURE:? XR FEMUR LT MIN 2V ? INDICATIONS:? cellulitis, eval left leg/knee for sub q air ? TECHNIQUE:? 2 views of the femur were acquired.? ? COMPARISON:? [facility], CR, XR TIBIA FIBULA LT 2V, 07/04/2022, 16:49.? Located within [facility], PERIPH VENOUS LOW EXTREM LT, 07/04/2022, 15:10.? [facility], CR, XR CHEST 1V, 07/04/2022, 14:47. ? FINDINGS:? ? Bones:? No fractures or dislocations.? No suspicious bony lesions.? ? Left hip arthroplasty hardware is seen.? Degenerative changes are seen, particularly involving the knee. ? Soft tissues:? Distal soft tissue swelling is seen.? No soft tissue gas is seen by plain film. ? IMPRESSION:? Distal soft tissue swelling, without gas seen by plain film. ? Dictated by: Jean Lanier M.D. on 07/04/2022 at 16:33 ? ? Approved by: Jean Lanier M.D. on 07/04/2022 at 16:34 ? MDM Narrative Medical decision making narrative: This is a 71-year-old female with history of blood clots, CHF, atrial fibrillation and is anticoagulated on Eliquis, hypertension, hyperlipidemia, CKD with baseline creatinine of 0.96 and presents today with concern about tenderness and erythema to her left lateral leg which patient started to noticed 3 days ago. She has an active wound to her left foot and is being seen at wound care currently but is not on anti biotics. Her most recent wound culture from the left leg shows staph aureus growth with full susceptibility. Ultrasound DVT of her left lower extremity is negative for DVT. Patient expresses that she is had a productive cough for the last 3 days and with diarrhea. Respiratory panel is pending but COVID PCR is negative today. Patient's lab work overall is reassuring, no leukocytosis or anemia however there is a left shift, potassium of 3.2, this was treated with 40 mEq of oral potassium, patient is tolerating p.o., creatinine is 0.74, no elevation to liver enzymes or troponin, lipase of 53, procalcitonin 0.10. COVID PCR is negative. This patient presents with initial presentation of local erythema, warmth, swelling concerning for cellulitis. Sensitivity/pain to light touch around the erythematous area. No lymphangitic spread visible and no fluid pockets or fluctuance concerning for abscess noted. Low concern for osteomyelitis or DVT. Differential diagnoses also include DVT, necrotizing fasciitis, erysipelas, lymphangitis, scarlet fever. Patient is immunosuppressed on CellCept for her bullous pemphigoid, today her erythematous skin is without, bullae, pain out of proportion, or rapid progression concerning for necrotizing fasciitis. Patient to be discharged home with prescription for doxycycline, blood cultures are pending, she will follow-up at her appointment at the wound clinic on Monday as scheduled and follow up with their PMD. X-ray of her femur and tib-fib of the left is negative for subcu gas showing distal soft tissue swelling. Chest x-ray without any focal infiltrates. Vital Signs: I, the ED provider, reviewed the patient?s vital signs, past medical records and encounters if available, and nursing notes. I have spoken with the patient/family and discussed today?s findings whom verbalize understanding. Counseling was provided regarding the diagnosis and prognosis, and specific details were provided for the plan of care. Questions are addressed and there is agreement with the plan and for follow-up. Patient is appropriate for outpatient management. Portions of this chart have been created with [employer] voice recognition software. Occasional wrong word or sound alike substitutions may have occurred due to the inherent limitations of this software. I, ISELA Falcon, personally performed the services described in the documentation, and it accurately records my words and actions. I collaborated with the ED attending physician for RANDALL level 2, 3, and some level 4s as needed MIPS: This encounter doesn't have any diagnosis associated with MIPS criteria. Electronically signed by: ISELA Falcon Patient's symptoms improved over duration of stay with above-stated therapies. Findings and discharge diagnosis discussed with patient/family followed by verbalization of understanding Return precautions discussed with patient/family whom verbalize understanding. <Varinder Hanson MD - Last Filed: 07/13/22 21:47> Lab Data Labs: Lab Results 07/04/22 07/04/22 07/04/22 Range/Units 14:43 14:43 14:43 WBC 8.9 (4.5-11.0) X10^3/uL RBC 5.40 H (4.0-5.2) X10^6/uL Hgb 14.5 (12.0-16.0) g/dL Hct 45.2 (36-46) % MCV 83.7 (80-100) fL MCH 26.8 (26-34) PG MCHC 32.0 (30-36) % RDW 15.2 H (11.6-14.8) % Plt Count 179 (150-400) X10^3/uL Neut % (Auto) 80.8 H (50-75) % Lymph % (Auto) 8.2 L (25-40) % Lassen % (Auto) 10.3 (3-14) % Eos % (Auto) 0.3 L (2-4) % Baso % (Auto) 0.4 (0-2) % Neut # (Auto) 7200 H (4976-2171) /uL Lymph # (Auto) 700 L (4086-5836) /uL Lassen # (Auto) 900 (0-900) /uL Eos # (Auto) 0 (0-450) /uL Baso # (Auto) 0 (0-100) /uL PT 18.9 H (10.1-12.7) SECONDS INR 1.6 H (0.9-1.3) APTT 31 (26-36) SECONDS Sodium 135 L (137-145) mmol/L Potassium 3.2 L (3.4-5.1) mmol/L Chloride 96 L (98-107) mmol/L Carbon Dioxide 28 (22-32) mmol/L BUN 17 (7-17) mg/dL Creatinine 0.74 (0.52-1.04) mg/dL Estimated GFR > 60 (>60) mL/min BUN/Creatinine Ratio 23.0 H (6-22) Glucose 84 (80-110) mg/dL Lactate (0.7-2.1) mmol/L Calcium 8.7 (8.4-10.2) mg/dL Total Bilirubin 1.1 (0.2-1.3) mg/dL AST 33 (14-36) IU/L ALT 21 (<35) IU/L Alkaline Phosphatase 98 (38-126) U/L Total Creatine Kinase (30-135) U/L CK-MB (CK-2) (<2.37) ng/mL CK-MB (CK-2) Rel Index (1.5-5.0) % Troponin I (0.01-0.034) ng/mL Total Protein 6.9 (6.3-8.2) g/dL Albumin 3.4 L (3.5-5.0) g/dL Globulin 3.5 (1.7-4.1) g/dL Albumin/Globulin Ratio 1.0 (1.0-2.8) Lipase 53 (23-300) U/L Procalcitonin 0.10 (<0.5) ng/mL Urine RBC (0-5/HPF) Urine WBC (0-5/HPF) Urine Bacteria (None) Urine Mucus (Negative) Ur Culture Indicated? SARS-CoV-2 (PCR) (Negative) Influenza A (RT-PCR) (NEGATIVE) Influenza B (RT-PCR) (NEGATIVE) RSV (PCR) (Negative) 07/04/22 07/04/22 07/04/22 Range/Units 14:43 14:43 14:43 WBC (4.5-11.0) X10^3/uL RBC (4.0-5.2) X10^6/uL Hgb (12.0-16.0) g/dL Hct (36-46) % MCV (80-100) fL MCH (26-34) PG MCHC (30-36) % RDW (11.6-14.8) % Plt Count (150-400) X10^3/uL Neut % (Auto) (50-75) % Lymph % (Auto) (25-40) % Lassen % (Auto) (3-14) % Eos % (Auto) (2-4) % Baso % (Auto) (0-2) % Neut # (Auto) (2391-1694) /uL Lymph # (Auto) (0979-9485) /uL [place]assen # (Auto) (0-900) /uL Eos # (Auto) (0-450) /uL Baso # (Auto) (0-100) /uL PT (10.1-12.7) SECONDS INR (0.9-1.3) APTT (26-36) SECONDS Sodium (137-145) mmol/L Potassium (3.4-5.1) mmol/L Chloride (98-107) mmol/L Carbon Dioxide (22-32) mmol/L BUN (7-17) mg/dL Creatinine (0.52-1.04) mg/dL Estimated GFR (>60) mL/min BUN/Creatinine Ratio (6-22) Glucose (80-110) mg/dL Lactate 1.0 (0.7-2.1) mmol/L Calcium (8.4-10.2) mg/dL Total Bilirubin (0.2-1.3) mg/dL AST (14-36) IU/L ALT (<35) IU/L Alkaline Phosphatase (38-126) U/L Total Creatine Kinase 122 (30-135) U/L CK-MB (CK-2) 1.46 (<2.37) ng/mL CK-MB (CK-2) Rel Index 1.2 L (1.5-5.0) % Troponin I 0.021 (0.01-0.034) ng/mL Total Protein (6.3-8.2) g/dL Albumin (3.5-5.0) g/dL Globulin (1.7-4.1) g/dL Albumin/Globulin Ratio (1.0-2.8) Lipase (23-300) U/L Procalcitonin (<0.5) ng/mL Urine RBC (0-5/HPF) Urine WBC (0-5/HPF) Urine Bacteria (None) Urine Mucus (Negative) Ur Culture Indicated? SARS-CoV-2 (PCR) Negative (Negative) Influenza A (RT-PCR) (NEGATIVE) Influenza B (RT-PCR) (NEGATIVE) RSV (PCR) (Negative) 07/04/22 07/04/22 Range/Units 17:19 17:19 WBC (4.5-11.0) X10^3/uL RBC (4.0-5.2) X10^6/uL Hgb (12.0-16.0) g/dL Hct (36-46) % MCV (80-100) fL MCH (26-34) PG MCHC (30-36) % RDW (11.6-14.8) % Plt Count (150-400) X10^3/uL Neut % (Auto) (50-75) % Lymph % (Auto) (25-40) % Lassen % (Auto) (3-14) % Eos % (Auto) (2-4) % Baso % (Auto) (0-2) % Neut # (Auto) (1552-7819) /uL Lymph # (Auto) (2877-4271) /uL Lassen # (Auto) (0-900) /uL Eos # (Auto) (0-450) /uL Baso # (Auto) (0-100) /uL PT (10.1-12.7) SECONDS INR (0.9-1.3) APTT (26-36) SECONDS Sodium (137-145) mmol/L Potassium (3.4-5.1) mmol/L Chloride (98-107) mmol/L Carbon Dioxide (22-32) mmol/L BUN (7-17) mg/dL Creatinine (0.52-1.04) mg/dL Estimated GFR (>60) mL/min BUN/Creatinine Ratio (6-22) Glucose (80-110) mg/dL Lactate (0.7-2.1) mmol/L Calcium (8.4-10.2) mg/dL Total Bilirubin (0.2-1.3) mg/dL AST (14-36) IU/L ALT (<35) IU/L Alkaline Phosphatase (38-126) U/L Total Creatine Kinase (30-135) U/L CK-MB (CK-2) (<2.37) ng/mL CK-MB (CK-2) Rel Index (1.5-5.0) % Troponin I (0.01-0.034) ng/mL Total Protein (6.3-8.2) g/dL Albumin (3.5-5.0) g/dL Globulin (1.7-4.1) g/dL Albumin/Globulin Ratio (1.0-2.8) Lipase (23-300) U/L Procalcitonin (<0.5) ng/mL Urine RBC 0-1/hpf D (0-5/HPF) Urine WBC 5-10/hpf H (0-5/HPF) Urine Bacteria Occasional (0-1) (None) Urine Mucus 1+ H (Negative) Ur Culture Indicated? Specimen cultured SARS-CoV-2 (PCR) Negative (Negative) Influenza A (RT-PCR) Flu a positive H (NEGATIVE) Influenza B (RT-PCR) Flu b negative (NEGATIVE) RSV (PCR) Negative (Negative) Urine Dip Bedside Urine Glucose Negative Bedside Urine Bilirubin - Negative Bedside Urine Ketone +/- 5 Urine Specific [place] 1.015 Bedside Urine Occult Blood +/- Bedside Urine pH 6.0 Bedside Urine Protein + 30 Bedside Urine Urobilinogen - Negative Bedside Urine Nitrite - Negative Bedside Urine Leukocytes - Negative Esterase Discharge Plan Departure Patient Disposition: Home Clinical Impression: Cellulitis and abscess of left leg, Hypokalemia Diarrhea Qualifiers: Diarrhea type: unspecified type Qualified Code(s): R19.7 - Diarrhea, unspecified Instructions: DI for Cellulitis -- Adult, Diarrhea Activity Restrictions/Additional Instructions: *You have been diagnosed with cellulitis. We will follow-up with you if your blood culture grows another type of bacteria. Take this antibiotic for the next 10 days, follow-up with your primary care provider as needed, return for new or worsening symptoms, stay hydrated, and I hope you start having improvement of this right away. Follow-up with the wound care clinic Monday if you have an appointment. Let them know that you are now on doxycycline to cover for cellulitis. I will call you if your COVID test is positive. Your potassium level was low today, this is likely from diarrhea. Please try and stay hydrated and eat food with electrolytes and nutrition in it. I hope you start feeling better soon. Your COVID test was negative today however the respiratory panel is still pending from later. There is no air under the skin from your x-rays. *What to do: *Please continue to take your regular medications as directed. [x ] New medication prescriptions sent to your pharmacy: [ [facility]] [ ] New medication written as a paper prescription [ ] No new medications given *Please follow up with your primary care provider in 2-3 days, call for an appointment. Let them know you were seen in the Emergency Department and that we asked that you be seen for follow-up. We will electronically transmit a record of today's note if your PCP is in our system *If you do not have a primary care provider please contact [phone] to establish care with one of the [facility] primary care providers. *Return to Emergency Department if you should have any new, worsening, or concerning symptoms, such as [fever greater than 101F, chills, worsening pain, persistent vomiting or other bothersome symptoms]. Prescriptions: New doxycycline hyclate 100 mg capsule 100 mg PO BID 10 Days Qty: 20 0RF No Action cyanocobalamin (vitamin B-12) 1,000 MCG tablet extended release 1,000 mcg PO DAILY Qty: 0 flecainide 50 mg tablet 100 mg PO BID Eliquis 5 mg tablet 5 mg PO BID Qty: 120 2RF levothyroxine 75 mcg tablet See Rx Instructions .ROUTE .COMPLEX Qty: 90 0RF Dose Instruction: TAKE ONE TABLET BY MOUTH ONE TIME DAILY FOR 6 DAYS PER WEEK Rx Instructions: TAKE ONE TABLET BY MOUTH ONE TIME DAILY FOR 6 DAYS PER WEEK pramipexole 0.125 mg tablet 0.125 mg PO BEDTIME Qty: 90 1RF gabapentin 600 mg tablet See Rx Instructions .ROUTE .COMPLEX Qty: 90 1RF Dose Instruction: TAKE 1 TABLET BY MOUTH ONCE DAILY AT BEDTIME Rx Instructions: TAKE 1 TABLET BY MOUTH ONCE DAILY AT BEDTIME atorvastatin 10 mg tablet See Rx Instructions .ROUTE .COMPLEX Qty: 90 3RF Dose Instruction: TAKE ONE TABLET BY MOUTH ONE TIME DAILY AT BEDTIME Rx Instructions: TAKE ONE TABLET BY MOUTH ONE TIME DAILY AT BEDTIME tramadol 50 mg tablet 50 mg PO BID PRN (Reason: severe pain) Qty: 60 0RF potassium chloride 10 mEq tablet,ER particles/crystals 10 meq PO BEDTIME Label Comments: TAKE ONE TABLET BY MOUTH ONE TIME DAILY. metoprolol succinate 50 mg tablet extended release 24 hr 100 mg PO BID albuterol sulfate [Ventolin HFA] 90 mcg/actuation HFA aerosol inhaler 2 - 4 puff inhalation Q4H PRN (Reason: Shortness Of Breath) Qty: 8.5 0RF ferrous sulfate 325 mg (65 mg iron) tablet 325 mg PO Q OTHER DAY mycophenolate mofetil 500 mg tablet 1,000 mg PO BID Label Comments: TAKE TWO TABLETS BY MOUTH TWICE DAILY omeprazole magnesium [Prilosec OTC] 20 mg Tablet,Delayed Release (Dr/Ec) 20 mg PO DAILY losartan 50 mg tablet 50 mg PO DAILY Referrals: Yoan Lozano MD [Non-Staff] - Shira Corbin DO [Primary Care Provider] - <Varinder Hanson MD - Last Filed: 07/13/22 21:47> Cosign ED Attending Cosignature Attestation: I was immediately available in the department for consultation. ?This documentation has been reviewed and I agree with assessment and plan. Supervised by Varinder Hanson MD
[2022-07-04] MEDS: cefTRIAXone 2,000 MG in SODIUM CHLORIDE 0.9% 100 ML 200 MG IV (17:21)
[2022-07-04] MEDS: DOXYCYCLINE HYCLATE 100 MG TABLET PO (17:21)
[2022-07-04] MEDS: POTASSIUM CHLORIDE 20 MEQ/15 ML UDC 40 MEQ PO (17:21)
[2022-07-04 17:52] LABS: Bacteria Urine Occasional (0-1); Culture Indicated Urine Specimen Cultured; Mucus Urine 1+ (Negative); RBC Urine 0-1/HPF (0-5/HPF); WBC Urine 5-10/HPF (0-5/HPF)
[2022-07-04 18:17] LABS: Influenza A - CEPHEID Flu A POSITIVE (NEGATIVE); Influenza B - CEPHEID Flu B NEGATIVE (NEGATIVE); Respiratory Syncytial Virus Negative (Negative)
[2022-07-04 18:18] LABS: COVID-19 CEPHEID 4-PLEX PCR Negative (Negative)
== END 2022-07-04 18:28 | disposition home or self-care (01) ==
PROVIDERS: Emergency Medicine; Emergency Provider Nurse Practitioner Critical Care Medicine; PCP Family Medicine
DX: L03.116 Cellulitis of left lower limb (principal); L02.416 Cutaneous abscess of left lower limb; J10.1 Influenza due to other identified influenza virus with other respiratory manifestations; E87.6 Hypokalemia; R00.0 Tachycardia, unspecified; E86.0 Dehydration; R19.7 Diarrhea, unspecified; Z20.822 Contact with and (suspected) exposure to COVID-19
CPT/HCPCS: 0241U; 36415; 71045; 73552; 73590; 80053; 81003; 81015; 82550; 82553; 83605; 83690; 84145; 84484; 85025; 85610; 85730; 87040; 87077; 87086; 87186; 87635; 93005; 93971; 96365; 99285; C9803; J0696

== ENCOUNTER → 2022-07-08 10:25 | Outpatient (CLI) | payer MEDICARE, SELFPAY ==
[2022-04-27 17:23] VITALS: BMI 39.4
== END ==
PROVIDERS: PCP Family Medicine; Referring Provider Family Medicine; Visit Provider Nurse Practitioner Family
DX: L97.822 Non-pressure chronic ulcer of other part of left lower leg with fat layer exposed (principal); L12.0 Bullous pemphigoid; I50.9 Heart failure, unspecified; R60.9 Edema, unspecified; I48.91 Unspecified atrial fibrillation; I26.99 Other pulmonary embolism without acute cor pulmonale; Z95.0 Presence of cardiac pacemaker; Z79.01 Long term (current) use of anticoagulants
CPT/HCPCS: 15271; Q4196

== ENCOUNTER → 2022-07-15 10:17 | Outpatient (CLI) | payer MEDICARE, SELFPAY ==
[2022-04-27 17:23] VITALS: BMI 39.4
== END ==
PROVIDERS: PCP Family Medicine; Referring Provider Emergency Medicine; Visit Provider Nurse Practitioner Family
DX: L97.822 Non-pressure chronic ulcer of other part of left lower leg with fat layer exposed (principal); L12.0 Bullous pemphigoid; R60.0 Localized edema; L53.9 Erythematous condition, unspecified; Z86.718 Personal history of other venous thrombosis and embolism; Z79.01 Long term (current) use of anticoagulants; Z95.0 Presence of cardiac pacemaker
CPT/HCPCS: 99213

== ENCOUNTER → 2022-07-22 13:14 | Outpatient (CLI) | payer MEDICARE, SELFPAY ==
[2022-04-27 17:23] VITALS: BMI 39.4
== END ==
PROVIDERS: PCP Family Medicine; Referring Provider Family Medicine; Visit Provider Nurse Practitioner Family
DX: L97.822 Non-pressure chronic ulcer of other part of left lower leg with fat layer exposed (principal); L12.0 Bullous pemphigoid; R60.0 Localized edema; L53.9 Erythematous condition, unspecified; Z79.01 Long term (current) use of anticoagulants
CPT/HCPCS: 99213

== ENCOUNTER → 2022-07-29 10:47 | Outpatient (CLI) | payer MEDICARE, SELFPAY ==
[2022-04-27 17:23] VITALS: BMI 39.4
== END ==
PROVIDERS: PCP Family Medicine; Referring Provider Family Medicine; Visit Provider Nurse Practitioner Family
DX: L97.822 Non-pressure chronic ulcer of other part of left lower leg with fat layer exposed (principal); L03.116 Cellulitis of left lower limb; L12.0 Bullous pemphigoid; R60.9 Edema, unspecified; L02.416 Cutaneous abscess of left lower limb
CPT/HCPCS: 10061; 15271; 87070; 87077; 87147; 87186; 87205; 99213; Q4195

== ENCOUNTER → 2022-07-29 16:55 | Outpatient (CLI) | payer MEDICARE, SELFPAY ==
[2022-04-27 17:23] VITALS: BMI 39.4
== END ==
PROVIDERS: PCP Family Medicine; Visit Provider Surgery
DX: L02.416 Cutaneous abscess of left lower limb (principal); L03.119 Cellulitis of unspecified part of limb
CPT/HCPCS: 87070; 87075; 87077; 87147; 87186; 87205

== ENCOUNTER → 2022-08-05 10:20 | Outpatient (CLI) | payer MEDICARE, SELFPAY ==
[2022-04-27 17:23] VITALS: BMI 39.4
== END ==
PROVIDERS: PCP Family Medicine; Referring Provider Family Medicine; Visit Provider Nurse Practitioner Family
DX: L12.0 Bullous pemphigoid (principal); L97.822 Non-pressure chronic ulcer of other part of left lower leg with fat layer exposed; L03.116 Cellulitis of left lower limb; L02.416 Cutaneous abscess of left lower limb; R60.9 Edema, unspecified; Z79.01 Long term (current) use of anticoagulants
CPT/HCPCS: 15271; 99213; Q4196

== ENCOUNTER → 2022-08-10 15:07 | Outpatient (CLI) | payer MEDICARE, SELFPAY ==
[2022-04-27 17:23] VITALS: BMI 39.4
== END ==
PROVIDERS: PCP Family Medicine; Referring Provider Family Medicine; Visit Provider Surgery
DX: L12.0 Bullous pemphigoid (principal); L97.822 Non-pressure chronic ulcer of other part of left lower leg with fat layer exposed; S81.802A Unspecified open wound, left lower leg, initial encounter; L03.116 Cellulitis of left lower limb; R60.9 Edema, unspecified; Z79.01 Long term (current) use of anticoagulants
CPT/HCPCS: 87070; 87075; 87077; 87185; 87186; 87205; 99213; 99214

== ENCOUNTER → 2022-08-12 10:21 | Outpatient (CLI) | payer MEDICARE, SELFPAY ==
[2022-04-27 17:23] VITALS: BMI 39.4
== END ==
PROVIDERS: PCP Family Medicine; Referring Provider Family Medicine; Visit Provider Nurse Practitioner Family
DX: L12.0 Bullous pemphigoid (principal); S81.802A Unspecified open wound, left lower leg, initial encounter; S71.102A Unspecified open wound, left thigh, initial encounter; T81.89XA Other complications of procedures, not elsewhere classified, initial encounter; R60.0 Localized edema; L53.9 Erythematous condition, unspecified; Z79.01 Long term (current) use of anticoagulants
CPT/HCPCS: 11042; 15271; 97605; 99213; Q4196

== ENCOUNTER 2022-08-12 12:28 | Inpatient (IN) | payer MEDICARE, SELFPAY ==
[2022-04-27 17:23] VITALS: BMI 39.4
[2022-08-12] VITALS (48 sets, daily range): BP systolic 83–160; BP diastolic 41–83; PULSE 58–97; RESP 9–25; TEMP 36.3–36.8; O2SAT 92–100; BMI 36.6; BMI 38.7
--- NOTE | 2022-08-12 12:44 | DI.RAD.S_ITS ---
PROCEDURE: XR HIP W PEL IF DONE LT 2V INDICATIONS: left hip/thigh pain, s/ p fall, wound on hip TECHNIQUE: 2 views of the hip were acquired. COMPARISON: [facility], CR, XR FEMUR LT MIN 2V, 07/04/2022, 16:49. [facility], CR, XR TIBIA FIBULA LT 2V, 07/04/2022, 16:49. [facility], SARWAT, HIP 2V LEFT, 04/24/2009, 9:17. FINDINGS: Bones: Bilateral hip arthroplasties in place. Lumbosacral and pubic symphysis degenerative changes. A suspected mildly displaced periprosthetic fracture is seen adjacent to the left femoral stem. Soft tissues: No suspicious calcifications. Moderate fecal loading. IMPRESSION: Mildly displaced left periprosthetic fracture. Dictated by: Jerod Hansen M.D. on 08/12/2022 at 13:40 Approved by: Jerod Hansen M.D. on 08/12/2022 at 13:41
--- NOTE | 2022-08-12 12:44 | DI.RAD.S_ITS ---
PROCEDURE: XR KNEE LT 1TO2V INDICATIONS: left thigh, knee pain TECHNIQUE: 2 views of the knee were acquired. COMPARISON: [facility], CR, KNEE 3V LEFT, 07/24/2012, 17:20. FINDINGS: Bones: Moderate arthrosis, progressed compared to 2012. This particularly affects the medial compartment. No displaced fracture or dislocation. Soft tissues: Possible trace joint effusion. IMPRESSION: Moderate arthrosis. No acute radiographic abnormality. If there is high concern for further derangement, consider MRI evaluation. Dictated by: Jerod Hansen M.D. on 08/12/2022 at 13:37 Approved by: Jerod Hansen M.D. on 08/12/2022 at 13:38
--- NOTE | 2022-08-12 12:44 | DI.CT.S_ITS ---
PROCEDURE: CT HEAD/BRAIN WO CON INDICATIONS: left hip/thigh pain, s/ p fall, wound on hip TECHNIQUE: Noncontrast 4.5 mm thick angled axial sections acquired from the foramen magnum to the vertex, with coronal and sagittal reformats. For radiation dose reduction, the following was used: automated exposure control, adjustment of mA and/or kV according to patient size. COMPARISON: [facility], CT, CT CERVICAL SPINE WO CON, 08/12/2022, 12:49. FINDINGS: Image quality: Excellent. CSF spaces: Basal cisterns are patent. No extra-axial fluid collections. The ventricles are symmetric in size and shape. Brain: No intracranial bleeds or masses. There is cerebral volume loss for age, with resultant ventricular and sulcal prominence. There are periventricular and deep white matter chronic small vessel ischemic changes. There is intracranial internal carotid artery atherosclerosis. Skull and face: Calvarium and visualized facial bones appear intact, without suspicious lesions. Sinuses: There is moderate mucosal thickening within the right maxillary sinus and at least moderate mucosal thickening within the left maxillary sinus. The medial reyes of the maxillary sinuses have been removed. Milder mucosal thickening is seen elsewhere within the paranasal sinuses. Bilateral ko bullosa are seen. There is opacification of the right ko bullosa. No abnormal fluid is seen within the mastoid air cells. IMPRESSION: No acute intracranial hemorrhage is seen. No acute intracranial process is seen. Paranasal sinus disease is seen. Prior postoperative change, with bilateral antrectomy. Dictated by: Jean Lanier M.D. on 08/12/2022 at 12:22 Approved by: Jean Lanier M.D. on 08/12/2022 at 12:24
--- NOTE | 2022-08-12 12:44 | DI.CT.S_ITS ---
PROCEDURE: CT CERVICAL SPINE WO CON INDICATIONS: left hip/thigh pain, s/ p fall, wound on hip TECHNIQUE: Noncontrast 3 mm thick sections acquired from the skull base to the T4 level. Sagittal and coronal reformats were then constructed. For radiation dose reduction, the following was used: automated exposure control, adjustment of mA and/or kV according to patient size. COMPARISON: [facility], CT, CT HEAD/BRAIN WO CON, 08/12/2022, 12:49. FINDINGS: Image quality: This examination is somewhat limited by quantum mottle artifact. Bones: No fractures or dislocations. Visualized superior ribs are intact. Focal degenerative change is seen involving the C1-C2 interface anteriorly. There is [id number] disc space narrowing at C6-C7. Milder degenerative changes are seen elsewhere. Soft tissues: Prevertebral soft tissues are normal in thickness. No paravertebral hematomas. No apical pneumothoraces. Left-sided pacer leads are partially seen. IMPRESSION: Negative for acute fracture. Cervical spine degenerative changes are seen. Additional findings: Left-sided pacer leads Dictated by: Jean Lanier M.D. on 08/12/2022 at 12:24 Approved by: Jean Lanier M.D. on 08/12/2022 at 12:26
--- NOTE | 2022-08-12 12:44 | DI.RAD.S_ITS ---
PROCEDURE: XR CHEST 1V INDICATIONS: left hip/thigh pain, s/ p fall, wound on hip TECHNIQUE: One view of the chest was acquired. COMPARISON: [facility], CR, XR CHEST 1V, 07/04/2022, 14:47. [facility], CR, XR CHEST 2V, 07/07/2021, 15:46. FINDINGS: Surgical changes and devices: Left chest wall pulse generator with dual-chamber electrode leads in place. Lungs and pleura: Mildly prominent interstitium. No dense consolidation or pleural effusion. Suspected basal atelectasis is also present. Mediastinum: Mild cardiomegaly. Bones and chest wall: Bones are not well evaluated on chest radiography. IMPRESSION: Mildly prominent interstitium could represent edema versus atypical infection. No dense consolidation or pleural effusion. Suspected basal atelectasis. Consider future imaging surveillance to assess for resolution. Borderline cardiomegaly. Dictated by: Jerod Hansen M.D. on 08/12/2022 at 13:38 Approved by: Jerod Hansen M.D. on 08/12/2022 at 13:39
--- NOTE | 2022-08-12 12:47 | ED_ITS ---
HPI - Fall General Chief Complaint: Trauma Stated Complaint: fell down in [facility] on [facility] hurt LT side Time Seen by Provider: 08/12/22 12:44 Source: patient, EMS and RN notes reviewed Mode of arrival: EMS Limitations: no limitations History of Present Illness HPI Narrative: This is a 72-year-old female on Eliquis for AFib, has known pacemaker, has prior pulmonary emboli. Patient has a on her left hip for an abscess that developed after cellulitis. Patient states she is been following with the wound care center. She states today she fell on her left hip she states she was not dizzy she did not pass out but she is not sure if she slipped what happened. She complains of pain in her left shoulder left hip and left chest. She denies loss of consciousness she is unsure if she hit her head she is on Eliquis daily, she denies neck pain, back pain denies chest pain or shortness of breath other than on the left lateral side of her chest from after her fall. She denies nausea or vomiting. No loss of bowel or bladder control. No new numbness, tingling or weakness but has pain with movement of her left arm and leg. Has not had any recent fevers or chills. Patient does have prior hip replacement she states her right hip is at least 20 years old and her left hip is at least more than 5 years and was replaced it [place]. She states there was no issue with infection of the joint at that time at the the area of abscess and cellulitis was not over her prior incision site. Patient tetanus is not up-to-date. Former tobacco, occasional alcohol not daily, no illicit. Sarah grover is her primary care. She is following with the wound clinic locally and has wound vac in place. Related Data Home Medications Medication Instructions Recorded Confirmed cyanocobalamin (vitamin B-12) 1,000 mcg PO DAILY ##0 08/05/16 08/12/22 1,000 mcg tablet,extended release omeprazole magnesium 20 mg 20 mg PO DAILY 06/07/18 08/12/22 tablet,delayed release (Prilosec OTC) losartan 50 mg tablet 50 mg PO DAILY 12/25/18 08/12/22 flecainide 50 mg tablet 100 mg PO BID 06/14/21 08/12/22 metoprolol succinate 50 mg 100 mg PO BID 07/07/21 08/12/22 tablet,extended release 24 hr potassium chloride 10 mEq 10 meq PO BEDTIME 07/07/21 08/12/22 tablet,extended release(part/cryst) ferrous sulfate 325 mg (65 mg 325 mg PO Q OTHER DAY 08/18/21 08/12/22 iron) tablet mycophenolate mofetil 500 mg tablet 1,000 mg PO BID 02/06/22 08/12/22 tramadol 50 mg tablet 50 mg PO TID PRN Pain (Scale Score 08/12/22 08/12/22 7-10) Previous Rx's Medication Instructions Recorded albuterol sulfate 90 mcg/actuation 2 - 4 puff inhalation Q4H PRN 04/08/20 aerosol inhaler (Ventolin HFA) Shortness Of Breath #8.5 grams apixaban 5 mg tablet (Eliquis) 5 mg PO BID #120 tabs 12/29/21 pramipexole 0.125 mg tablet 0.125 mg PO BEDTIME #90 tabs 05/13/22 atorvastatin 10 mg tablet See Rx Instructions .Route 06/06/22 .COMPLEX #90 tabs trazodone 50 mg tablet See Rx Instructions PO BEDTIME PRN 07/20/22 insomnia #30 tabs levothyroxine 75 mcg tablet See Rx Instructions .Route 08/01/22 .COMPLEX #30 tabs Allergies Allergy/AdvReac Type Severity Reaction Status Date / Time diuretics AdvReac Rash Uncoded 08/12/22 17:29 Review of Systems Review of Systems ROS Unobtainable: All systems reviewed & are unremarkable except as noted in HPI and below Patient History Medical History Anemia Asthma Atrial fibrillation by electrocardiography Bullous pemphigoid (~10/2019) Chickenpox Cholelithiasis Chronic kidney disease (CKD) stage G2/A1, mildly decreased glomerular filtration rate (GFR) between 60-89 mL/min/1.73 square meter and albuminuria creatinine ra sang less than 30 mg/g (09/06/17) Chronic obstructive pulmonary disease (10/19/16) Class 1 obesity (09/05/16) Diverticulosis of colon (~12/2020) Eczema Environmental allergies (09/05/16) Fatigue due to sleep pattern disturbance Hepatitis B core antibody positive History of torn meniscus of right knee Hyperlipidemia (01/25/11) Hypertension (01/25/11) Hypothyroidism (~2007) Insomnia due to medical condition Measles Morbid obesity with body mass index (BMI) of 40.0 to 49.9 Osteoarthritis (01/25/11) Pacemaker (~05/2021) Pedal edema Persistent atrial fibrillation Pulmonary nodules/lesions, multiple Recurrent sinusitis (~1999) Seasonal allergies Sigmoid diverticulosis Snoring Surgical History Anesthesia History of foot surgery History of hip replacement (~2010) History of hip replacement (~2012) History of radiofrequency ablation procedure for cardiac arrhythmia (~07/2019) Polyp of nasal sinus Status post hysterectomy with oophorectomy (~1996) Family History Father Heart disease Hypertension Mother Heart disease Stroke Hypertension Diabetes mellitus Dementia Grandfather Cancer Grandmother No problems noted. Grandfather No problems noted. Grandmother No problems noted. Brother Pacemaker Social History marital status: household members: spouse occupational status: previously employed Smoking Status: Former smoker alcohol intake: current substance use type: does not use Smoking Status: Former smoker tobacco type: cigarettes alcohol intake frequency: a few times a month Substance Use Type: does not use Exam Narrative Exam Narrative: GEN:. Patient appears in moderate distress. HEAD: No evidence of trauma, no raccoon/Hicks sign. NECK: Nontender, painless range of motion, trachea midline Negative Nexus criteria, no line tenderness, distracting injury, altered mental status, neuro deficit, recent EtOH. EYES: PERRLA, EOMI ENT: External inspection normal, trachea is midline, TM's are normal no hemotypanum, Nares are clear, no septal hematoma, no dental or oral injury, pale conjunctiva, airway is normal and with normal occlusion, No bony tenderness RESP: Chest is nontender and has symmetric movement, no ecchymosis, breath sounds are normal no crackles, wheezes or rales CVS: Heart sounds are normal, no murmur noted, No JVD. ABG/GI: Nontender, soft, normal bowel sounds, no distention, no organomegaly, pelvic rock is negative NEURO: Oriented AOx3, neuro is grossly intact, sensation and motor is normal all 4 extremities moving, cranial nerves II through XII are intact, GCS is 15. PSYCH: Normal mood and affect SKIN: Intact except for skin tear of the left posterior bicep, patient also has some ecchymosis., warm and dry, no crepitus and without decubitus BACK: No CVA tenderness, no vertebral tenderness, no step-off's, no crepitus EXT: Patient has tenderness over the left hip/thigh. Slightly tender over the knee and has pain with movement at the knee and hip as well. No obvious deformity but somewhat difficult to tell from habitus. Patient does have back in place skin does not appear erythematous. No pedal edema. Patient has 2+ pulses upper and lower extremities. 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 Initial Vital Signs Initial Vital Signs: Vital Signs Temperature 97.7 F 08/12/22 12:32 Pulse Rate 65 08/12/22 12:32 Respiratory Rate 16 08/12/22 12:32 Blood Pressure 87/49 L 08/12/22 12:32 Pulse Oximetry 97 08/12/22 12:32 Oxygen Delivery Method 08/12/22 12:32 Scores GCS [place] coma scale eye opening: Spontaneous Felix coma scale verbal response: Orientated Felix coma scale motor response: Obey commands [place] coma scale total score: 15 Course Orders Ordered: ED Orders 08/12/22 12:44 CT cervical spine wo con Stat CT head/brain wo con Stat Chest [XR chest 1V] Stat XR hip w pel if done LT 2V Stat XR knee LT 1to2V Stat 08/12/22 12:48 XR shoulder LT min 2V Stat 08/12/22 12:50 BNP [NT-proBNP (BNP-Adult 18+)] Stat CBC Auto Diff [Complete Blood Count AUTO DIFF] Stat CMP [Comprehensive Metabolic Panel] Stat Lipase Stat PTT [Partial Thromboplastin Time] Stat Prothrombin Time INR Stat Troponin & CK Cardiac Panel Stat Type and Screen Stat 08/12/22 12:52 EKG-12 Lead Stat 08/12/22 14:15 COVID19 -Nasal RAPID/Pre-Proc Stat 08/12/22 14:37 CT LE LT wo con Stat Acetaminophen (Acetaminophen 325 Mg Tablet) 650 mg PO Q6H PRN PRN Reason: Fever/Mild Pain (1-3) Ondansetron HCl (Ondansetron 4 Mg/2 Ml Inj) 4 mg IV Q6HR PRN PRN Reason: Nausea And Vomiting Last Admin: 08/12/22 14:07 Dose: 4 mg Documented By: RB Oxycodone HCl (Oxycodone Ir 5 Mg Tablet) 10 mg PO Q6HR PRN PRN Reason: Pain, Severe (7-10) Last Admin: 08/12/22 17:09 Dose: 10 mg Documented By: RB Discontinued Medications Diphtheria/Tetanus/Acell Pertussis (Tet,Diph,Pertuss(Acell),Vac/Pf 0.5 Ml Syringe) 0.5 ml IM .ONCE ONE Stop: 08/12/22 16:56 Last Admin: 08/12/22 17:09 Dose: 0.5 ml Documented By: RB Sodium Chloride (Normal Saline 0.9%) 500 mls @ 1,000 mls/hr IV BOLUS ONE Stop: 08/12/22 13:13 Last Infusion: 08/12/22 14:15 Dose: 0 mls/hr Documented By: Admin: 08/12/22 13:39 Dose: 1,000 mls/hr Documented By: RB Morphine Sulfate (Morphine 4 Mg/Ml Inj) 4 mg IV NOW ONE Stop: 08/12/22 14:01 Last Admin: 08/12/22 14:08 Dose: 4 mg Documented By: RB Morphine Sulfate (Morphine 4 Mg/Ml Inj) 4 mg IV NOW ONE Stop: 08/12/22 15:49 Last Admin: 08/12/22 15:51 Dose: 4 mg Documented By: RB Oxycodone HCl (Oxycodone Ir 10 Mg Tablet) 10 mg PO Q6HR PRN PRN Reason: Pain, Severe (7-10) Vital Signs Vital signs: Vital Signs - 8 hr 08/12/22 12:32 08/12/22 12:47 08/12/22 12:50 Temperature 97.7 F Pulse Rate 65 60 60 Respiratory Rate 16 18 23 Blood Pressure 87/49 L Pulse Oximetry 97 99 100 Oxygen Delivery Method Room Air 08/12/22 12:55 08/12/22 12:37 08/12/22 13:22 Temperature Pulse Rate 60 62 61 Respiratory Rate 18 Blood Pressure 83/47 L Pulse Oximetry 99 96 93 Oxygen Delivery Method Room Air 08/12/22 13:25 08/12/22 13:30 08/12/22 13:35 Temperature Pulse Rate 60 60 60 Respiratory Rate 17 Blood Pressure Pulse Oximetry 97 96 96 Oxygen Delivery Method 08/12/22 13:40 08/12/22 13:45 08/12/22 13:50 Temperature Pulse Rate 60 60 60 Respiratory Rate 22 20 17 Blood Pressure Pulse Oximetry 95 97 97 Oxygen Delivery Method 08/12/22 13:54 08/12/22 13:54 08/12/22 14:00 Temperature Pulse Rate 60 66 Respiratory Rate 18 22 Blood Pressure 123/57 L Pulse Oximetry 96 97 Oxygen Delivery Method 08/12/22 14:01 08/12/22 14:01 08/12/22 14:10 Temperature Pulse Rate 64 Respiratory Rate 20 Blood Pressure 152/63 H 153/64 H Pulse Oximetry 98 Oxygen Delivery Method 08/12/22 14:10 08/12/22 14:20 08/12/22 14:20 Temperature Pulse Rate 66 60 Respiratory Rate 20 Blood Pressure 135/62 Pulse Oximetry 94 95 Oxygen Delivery Method 08/12/22 14:30 08/12/22 14:30 08/12/22 14:40 Temperature Pulse Rate 61 Respiratory Rate 22 Blood Pressure 139/69 159/68 H Pulse Oximetry 95 Oxygen Delivery Method 08/12/22 14:40 08/12/22 14:54 08/12/22 14:57 Temperature Pulse Rate 97 H 58 L 71 Respiratory Rate 25 H 17 Blood Pressure Pulse Oximetry 94 95 92 Oxygen Delivery Method 08/12/22 14:57 08/12/22 15:00 08/12/22 15:01 Temperature Pulse Rate 60 62 Respiratory Rate 14 14 Blood Pressure 160/83 H Pulse Oximetry 94 94 Oxygen Delivery Method 08/12/22 15:01 08/12/22 15:10 08/12/22 15:11 Temperature Pulse Rate 60 61 Respiratory Rate 9 L 14 Blood Pressure 125/61 Pulse Oximetry 92 Oxygen Delivery Method 08/12/22 15:11 08/12/22 15:20 08/12/22 15:20 Temperature Pulse Rate 60 Respiratory Rate 16 Blood Pressure 128/60 127/65 Pulse Oximetry 93 Oxygen Delivery Method 08/12/22 15:30 08/12/22 15:30 08/12/22 15:40 Temperature Pulse Rate 60 Respiratory Rate 22 Blood Pressure 126/63 129/62 Pulse Oximetry Oxygen Delivery Method 08/12/22 15:40 08/12/22 15:50 08/12/22 15:50 Temperature Pulse Rate 60 62 Respiratory Rate 13 16 Blood Pressure 139/63 Pulse Oximetry 94 94 Oxygen Delivery Method 08/12/22 16:00 08/12/22 16:00 08/12/22 16:10 Temperature Pulse Rate 64 Respiratory Rate 14 Blood Pressure 131/61 137/62 Pulse Oximetry 99 Oxygen Delivery Method Room Air 08/12/22 16:10 08/12/22 16:20 08/12/22 16:20 Temperature Pulse Rate 64 65 Respiratory Rate 16 17 Blood Pressure 134/61 Pulse Oximetry 93 95 Oxygen Delivery Method 08/12/22 16:30 08/12/22 16:30 08/12/22 16:40 Temperature Pulse Rate 64 Respiratory Rate 18 Blood Pressure 138/67 135/70 Pulse Oximetry 92 Oxygen Delivery Method 08/12/22 16:40 08/12/22 16:50 08/12/22 16:50 Temperature Pulse Rate 63 70 Respiratory Rate 21 22 Blood Pressure 149/75 H Pulse Oximetry 92 95 Oxygen Delivery Method 08/12/22 17:00 08/12/22 17:00 08/12/22 17:10 Temperature Pulse Rate 66 Respiratory Rate 21 Blood Pressure 132/62 141/70 H Pulse Oximetry 92 Oxygen Delivery Method 08/12/22 17:10 08/12/22 17:20 08/12/22 17:20 Temperature Pulse Rate 64 67 Respiratory Rate 13 19 Blood Pressure 143/61 H Pulse Oximetry 95 Oxygen Delivery Method 08/12/22 17:30 08/12/22 17:40 Temperature Pulse Rate Respiratory Rate Blood Pressure 140/83 133/61 Pulse Oximetry Oxygen Delivery Method [facility] - Fall Lab Data 08/12/22 12:50 08/12/22 12:50 Labs: Lab Results 08/12/22 08/12/22 08/12/22 Range/Units 12:50 12:50 12:50 WBC 9.3 (4.5-11.0) X10^3/uL RBC 4.19 (4.0-5.2) X10^6/uL Hgb 11.4 L (12.0-16.0) g/dL Hct 35.5 L (36-46) % MCV 84.7 (80-100) fL MCH 27.2 (26-34) PG MCHC 32.1 (30-36) % RDW 17.5 H (11.6-14.8) % Plt Count 294 (150-400) X10^3/uL Neut % (Auto) 75.6 H (50-75) % Lymph % (Auto) 14.3 L (25-40) % [place] % (Auto) 7.5 (3-14) % Eos % (Auto) 2.0 (2-4) % Baso % (Auto) 0.6 (0-2) % Neut # (Auto) 7000 (9109-8988) /uL Lymph # (Auto) 1300 (5224-9447) /uL Valencia # (Auto) 700 (0-900) /uL Eos # (Auto) 200 (0-450) /uL Baso # (Auto) 100 (0-100) /uL PT 14.2 H (10.1-12.7) SECONDS INR 1.2 (0.9-1.3) APTT 28 (26-36) SECONDS Sodium 136 L (137-145) mmol/L Potassium 4.1 (3.4-5.1) mmol/L Chloride 98 (98-107) mmol/L Carbon Dioxide 30 (22-32) mmol/L BUN 13 (7-17) mg/dL Creatinine 0.75 (0.52-1.04) mg/dL Estimated GFR > 60 (>60) mL/min BUN/Creatinine Ratio 17.3 (6-22) Glucose 114 H (80-110) mg/dL Calcium 8.6 (8.4-10.2) mg/dL Total Bilirubin 0.6 (0.2-1.3) mg/dL AST 30 (14-36) IU/L ALT 17 (<35) IU/L Alkaline Phosphatase 108 (38-126) U/L Total Creatine Kinase 113 (30-135) U/L CK-MB (CK-2) 1.85 (<2.37) ng/mL CK-MB (CK-2) Rel Index 1.6 (1.5-5.0) % Troponin I < 0.012 (0.01-0.034) ng/mL NT-Pro-B Natriuret Pep 1310 H (<125) pg/mL Total Protein 6.1 L (6.3-8.2) g/dL Albumin 3.3 L (3.5-5.0) g/dL Globulin 2.8 (1.7-4.1) g/dL Albumin/Globulin Ratio 1.2 (1.0-2.8) Lipase 63 (23-300) U/L SARS-CoV-2 (PCR) (Negative) Blood Type Antibody Screen 08/12/22 08/12/22 Range/Units 12:50 14:15 WBC (4.5-11.0) X10^3/uL RBC (4.0-5.2) X10^6/uL Hgb (12.0-16.0) g/dL Hct (36-46) % MCV (80-100) fL MCH (26-34) PG MCHC (30-36) % RDW (11.6-14.8) % Plt Count (150-400) X10^3/uL Neut % (Auto) (50-75) % Lymph % (Auto) (25-40) % Valencia % (Auto) (3-14) % Eos % (Auto) (2-4) % Baso % (Auto) (0-2) % Neut # (Auto) (7309-4376) /uL Lymph # (Auto) (6248-5321) /uL Valencia # (Auto) (0-900) /uL Eos # (Auto) (0-450) /uL Baso # (Auto) (0-100) /uL PT (10.1-12.7) SECONDS INR (0.9-1.3) APTT (26-36) SECONDS Sodium (137-145) mmol/L Potassium (3.4-5.1) mmol/L Chloride (98-107) mmol/L Carbon Dioxide (22-32) mmol/L BUN (7-17) mg/dL Creatinine (0.52-1.04) mg/dL Estimated GFR (>60) mL/min BUN/Creatinine Ratio (6-22) Glucose (80-110) mg/dL Calcium (8.4-10.2) mg/dL Total Bilirubin (0.2-1.3) mg/dL AST (14-36) IU/L ALT (<35) IU/L Alkaline Phosphatase (38-126) U/L Total Creatine Kinase (30-135) U/L CK-MB (CK-2) (<2.37) ng/mL CK-MB (CK-2) Rel Index (1.5-5.0) % Troponin I (0.01-0.034) ng/mL NT-Pro-B Natriuret Pep (<125) pg/mL Total Protein (6.3-8.2) g/dL Albumin (3.5-5.0) g/dL Globulin (1.7-4.1) g/dL Albumin/Globulin Ratio (1.0-2.8) Lipase (23-300) U/L SARS-CoV-2 (PCR) Negative (Negative) Blood Type O Positive Antibody Screen Negative Imaging Data CT LE : Radiologist's Impression: [address] [address] [address] Scan Report Signed Patient: Mishel Reeder MR#: [id number] : 1950 Acct:[id number] Age/Sex: 72 / F Date of Service: 08/12/22 Loc: ED Accession Number: [id number] ?? Procedure: CT LE LT wo con Ordering Provider: Sheryl Javier D.O. PROCEDURE:? CT LE LT W CON ? INDICATIONS:? left hip fracture ? TECHNIQUE:? Noncontrast 3-mm axial sections acquired from the distal tibial shaft to the talar dome, with coronal and sagittal reformats..? ? ? COMPARISON:? [facility], CR, XR HIP W PEL IF DONE LT 2V, 08/12/2022, 12:50.? [facility], CR, XR FEMUR LT MIN 2V, 07/04/2022, 16:49. ? FINDINGS:? Image quality:? Excellent.? ? Bones:? Mildly displaced left proximal femur periprosthetic fracture, extending to the greater trochanter.? Knee arthrosis is partially seen.? There are also pubic symphysis degenerative changes.? ? Soft tissues:? Surrounding soft tissue swelling is present.? More focal edema is also seen on the lateral side of the lower extremity, adjacent to the knee.? Intrapelvic structures are not well evaluated on this study, overall unremarkable.? There are colonic diverticula. ? IMPRESSION:? Left proximal femur periprosthetic fracture. ? ? Dictated by: Jerod Hansen M.D. on 08/12/2022 at 15:22 ? ? Approved by: Jerod Hansen M.D. on 08/12/2022 at 15:25?? ECG Data Attestation: I personally reviewed and interpreted this ECG as follows: Interpretation: Ventricularly paced rhythm rate of 64 QRS of 182 QTC of 485. No acute ST elevation depression noted. MDM Narrative Medical decision making narrative: This is a 72-year-old female who had called level fall she has periprosthetic hip fracture, left clavicular fracture and skin tear on her left arm she is anticoagulant Eliquis. Patient was unsure if she would hit her head so head CT had been obtained although she did not have headache, no loss of consciousness or concussive symptoms. Lab workup shows a hemoglobin of 11 for she was 14 on 07/04/2022, cause her 1.2 and PTT of 28. Chemistry shows a sodium of 136 normal electrolytes and renal function glucose is 114 with normal LFTs trope is negative BNP is 13 10 patient has not been having any cardiac changes. Patient is negative for COVID today. Patient had initial blood pressure of 80 but on recheck was 1 teens to 120s she did receive 500 about bolus, Zofran, narcotics for pain management. Spoke with Orthopedic surgery they conferred with their partner Dr. Lynch they asked for CT of the hip fracture for more definitive imaging. This was felt patient can be toe-touch weight-bearing with maximum load of 20 lb, follow up in 2 weeks for repeat imaging with Dr. Sarah Lynch. Patient has not been able to get out of the bed or even attempt to weightbear or ambulate in the department at with her clavicle fracture will have difficulty using a walker she normally uses a cane. Discussed with Dr. Argueta who accepts for observation as patient's pain has not been managed with 2 doses of IV pain medication and oral pain medication. Discharge Plan Departure Patient Disposition: Admitted as Observation Clinical Impression: Skin tear of left upper extremity, Nida-prosthetic fracture around prosthetic hip, Clavicle fracture, Fall Admit Date/Time: 08/12/22 17:40 Admit Provider: Jaime Sung
--- NOTE | 2022-08-12 12:48 | DI.RAD.S_ITS ---
PROCEDURE: XR SHOULDER LT MIN 2V INDICATIONS: left shoulder/humeral pain TECHNIQUE: 3 views of the shoulder were acquired. COMPARISON: [facility], , SHOULDER MINIMUM 2VIEW RIGHT, 10/01/2010, 14:29. FINDINGS: Bones: Mildly displaced fracture of the left clavicle. Glenohumeral degenerative changes, moderate. Soft tissues: Partially seen left chest wall pulse generator. IMPRESSION: Distal clavicle fracture. Dictated by: Jerod Hansen M.D. on 08/12/2022 at 13:41 Approved by: Jerod Hansen M.D. on 08/12/2022 at 13:42
[2022-08-12 13:06] LABS: INR 1.2 (0.9-1.3); Prothrombin Time 14.2 SECONDS (10.1-12.7)
[2022-08-12 13:08] LABS: PTT Partial Thromboplastin Tim 28 SECONDS (26-36)
[2022-08-12 13:10] LABS: Alanine Aminotransferase 17 IU/L (<35); Albumin 3.3 g/dL (3.5-5.0); Albumin Globulin Ratio 1.2 (1.0-2.8); Alkaline Phosphatase 108 U/L (38-126); Aspartate Aminotransferase 30 IU/L (14-36); BUN Creatinine Ratio 17.3 (6-22); Bilirubin Total 0.6 mg/dL (0.2-1.3); Blood Urea Nitrogen 13 mg/dL (7-17); Calcium 8.6 mg/dL (8.4-10.2); Carbon Dioxide 30 mmol/L (22-32); Chloride 98 mmol/L (98-107); Creatine Kinase 113 U/L (30-135); Estimated Glomerular Filt Rate > 60 mL/min (>60); Globulin 2.8 g/dL (1.7-4.1); Glucose 114 mg/dL (80-110); HEMOLYSIS < 15 (0-50); Lipase 63 U/L (23-300); Potassium 4.1 mmol/L (3.4-5.1); Sodium 136 mmol/L (137-145); Total Protein 6.1 g/dL (6.3-8.2)
[2022-08-12 13:14] LABS: Add Manual Diff / Slide Review NO; Basophils Absolute Auto 100 /uL (0-100); Basophils Percent Auto 0.6 % (0-2); Eosinophils Absolute Auto 200 /uL (0-450); Hematocrit 35.5 % (36-46); Hemoglobin 11.4 g/dL (12.0-16.0); Lymphocytes Absolute Auto 1300 /uL (1100-4500); Lymphocytes Percent Auto 14.3 % (25-40); Mean Corpuscular HGB Conc 32.1 % (30-36); Mean Corpuscular Hemoglobin 27.2 PG (26-34); Mean Corpuscular Volume 84.7 fL (80-100); Monocytes Absolute Auto 700 /uL (0-900); Monocytes Percent Auto 7.5 % (3-14); Neutrophils Absolute Auto 7000 /uL (1500-7000); Neutrophils Percent Auto 75.6 % (50-75); Platelet Count 294 X10^3/uL (150-400); Red Blood Cell Count 4.19 X10^6/uL (4.0-5.2); Red Cell Distribution Width 17.5 % (11.6-14.8); White Blood Cell Count 9.3 X10^3/uL (4.5-11.0)
[2022-08-12 13:19] LABS: NT-proBNP (BNP-Adult 18+) 1310 pg/mL (<125)
[2022-08-12 13:24] LABS: Troponin I < 0.012 ng/mL (0.01-0.034)
[2022-08-12 13:25] LABS: CKMB % Relative Index 1.6 % (1.5-5.0); Creatine Kinase MB 1.85 ng/mL (<2.37)
[2022-08-12] MEDS: SODIUM CHLORIDE 0.9% 500 ML 1000 ML IV (13:39)
[2022-08-12] MEDS: ONDANSETRON 4 MG/2 ML INJ IV (14:07)
[2022-08-12] MEDS: MORPHINE 4 MG/ML INJ IV ×2 (14:08→15:51)
--- NOTE | 2022-08-12 14:16 | PC.NURSE ---
Patient needed to use the bathroom but unable to get out of bed. Patient authorized this RN and fellow RN to cut off her pants and place a periwick. Patient able to urinate without issue.
--- NOTE | 2022-08-12 14:37 | DI.CT.S_ITS ---
PROCEDURE: CT LE LT W CON INDICATIONS: left hip fracture TECHNIQUE: Noncontrast 3-mm axial sections acquired from the distal tibial shaft to the talar dome, with coronal and sagittal reformats.. COMPARISON: [facility], CR, XR HIP W PEL IF DONE LT 2V, 08/12/2022, 12:50. [facility], CR, XR FEMUR LT MIN 2V, 07/04/2022, 16:49. FINDINGS: Image quality: Excellent. Bones: Mildly displaced left proximal femur periprosthetic fracture, extending to the greater trochanter. Knee arthrosis is partially seen. There are also pubic symphysis degenerative changes. Soft tissues: Surrounding soft tissue swelling is present. More focal edema is also seen on the lateral side of the lower extremity, adjacent to the knee. Intrapelvic structures are not well evaluated on this study, overall unremarkable. There are colonic diverticula. IMPRESSION: Left proximal femur periprosthetic fracture. Dictated by: Jerod Hansen M.D. on 08/12/2022 at 15:22 Approved by: Jerod Hansen M.D. on 08/12/2022 at 15:25
[2022-08-12 14:38] LABS: COVID19 -Nasal RAPID Negative (Negative)
--- NOTE | 2022-08-12 14:40 | CM.DANOTE ---
Patient is a 72 yo female who was admitted on 08/12/22 for GLF/fxs. Pt has MCR and A[employer] for insurance and her PCP is Dr. Shira Corbin. EMR was reviewed. Per ED MD, pt with GLF with shoulder laceration and clavical fx and femoral stem fx and consult Ortho MD and plan is admission for ongoing medical care and possible surgery. SW met bedside with pt and spouse in the ED while awaiting bed on Acute Care and explained role and they confirm they still live in [place] and pt is independent with ADL's and uses a FWW at home and a cane when she leaves the house and no longer drives and spouse provides transportation. They confirm that they finalized their Living [place] and DPOA is 1) spouse 2) Dtr who lives on [address] in [place]. They do not have local family, closest is Dtr in [place], but they have local supportive friends. Pt states she still hasn't completed POLST/advanced directives as she is still deciding on her preferences. Pt has an autoimmune skin disorder that she states has caused ongoing wound care needs and cellulitis and has been seeing Barbara Borden at [facility] for about a year and was at her appointment today getting home wound vac placed when she got tripped up leaving her appointment and fell which brought her to the ED. Pt denies other falls. Pt states after I&D in Jul last month, HH was supposed to be set up but they never received a call from HH and therefore she came into the Wound Clinic. Pt and spouse cannot remember which HH agency was set up from Surgeon's office. Pt denies any hx of SNF and had not had HH before either. SW discussed need for Ortho Consult to determine if surgery indicated and then likely PT/OT eval towards determining SNF vs HH. Pt and spouse acknowledged understanding and are hopeful for safe d/c to home if possible but open to recommendations based on assist level and needs. Plan: SW to follow closely for Ortho Consult to determine if surgical intervention needed and PT/OT eval towards determining SNF vs HH when medically stable. ALESSANDRA Sandoval Discharge Planning/Care Management CM Discharge Assessment Start: 08/12/22 14:37 Freq: Status: Active Protocol: Document 08/12/22 14:37 BF (Rec: 08/12/22 14:40 BF [id number]) Discharge Planning Assessment Assigned Mathematics Teacher ALESSANDRA Malloy DPOA/Assigned Designee Name spouse Keshav Contact Information [phone] Advance Directives? No: still trying to decide on her directives Advance Directives on File No History Provided By Patient,Significant Other, Medical Record Has Patient been admitted in last 30 Yes days? Comment Here in Jul 2022 for abscess that was I&D and discharged home with outpt wound clinic [facility] Prior Living Arrangements House Household Members spouse Type of transporation used prior to Relies on Others admit Comment Spouse drives Independent with ADL's Yes Is patient alert and oriented? Yes Needs Assistance With Home Chores / Shopping Caregiver for Another No Community Services used prior to Wound Care admission: Comment Established with [facility] since last year DME Already Rented / Owned FWW / Walker,Cane Patient/Family Preference [facility] Facility,Home with Home Health Comment SNF vs HH pending Ortho Consult and PT/OT eval Barriers to Discharge No Discharge Plan Home with Home Health Transportation Arrangement Spouse plans to provide transport home at d/c vs SNF Additional Comment Pending Ortho Consult and PT/ OT eval Whiteboard Updated in Patient Room with Yes name and ext. # of Mathematics Teacher Review Status In Process Please Provide Date Initial DC 08/12/22 Assessment Was Performed Next Review Type Continued Stay Review
[2022-08-12] MEDS: TET,DIPH,PERTUSS(ACELL),VAC/PF 0.5 ML SYRINGE IM (17:09)
[2022-08-12] MEDS: OXYCODONE IR 5 MG TABLET 10 MG PO (17:09)
--- NOTE | 2022-08-12 17:41 | PC.NURSE ---
Failed ambulation trial. Unable to bear weight, unable to utilize walker.
--- NOTE | 2022-08-12 18:38 | PC.NURSE ---
Day shift: Pt in room from ED at approx 1825. Transfer from stretcher tolerated well but pain present in the left hip. Wound vac in place on LLE. Pt with chronic wound in this area per report/chart. Abrasion left shoulder w/ no dressing in place. VS WNL. RA 94%. Pt stated that she is cold and warm blankets in place. Spouse in room for support. She is A&Ox4 and in good spirits at this time. Her cut up shirt was removed and placed in trash per her request. Oriented to room and call light. Call light in reach. Instructed on I.S. use.
[2022-08-12] MEDS: MYCOPHENOLATE MOFETIL 500 MG TABLET 1000 MG PO (21:13)
[2022-08-12] MEDS: FLECAINIDE 100 MG TABLET PO (21:14)
[2022-08-12] MEDS: PRAMIPEXOLE 0.125 MG TABLET PO (21:14)
[2022-08-12] MEDS: APIXABAN 5 MG TABLET PO (21:15)
--- NOTE | 2022-08-12 21:26 | P.HP_ITS ---
History of Present Illness History of Present Illness Date Patient Seen: 08/12/22 Time Patient Seen: 18:41 Chief complaint: fell down in Wound Center on thinners hurt LT side Narrative: Mishel Reeder is a 72-year-old female?former smoker with history of chronic iron def anemia, paroxysmal atrial fibrillation on eliquis-post ablation with recent pacemaker placement 05/03/2021, SSS, Hx of Domenic PE (2021),COPD, CKD stage G2/A1, hyperlipidemia, hypothyroidism, peripheral neuropathy,? morbid obesity, YONI/Cpap, insomnia, oa, ambulates with cane/walker, chronic cellulitis left thigh since 02/21- Dr. 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 ?Presented to the ED today following a ground level fall impacting and c/o left hip, left sh oulder pain. On admit patient's pain to left hip and left shoulder, and left lateral chest wall is well-controlled 12/10, with medication from ED. On admit patient denies chest pain, shortness in breath, headache, changes in vision, difficulty swallowing, speech impairment, new or changed weakness, numbness, tingling, denies LOC, fever, body aches, chills, cough, recent exposure to illness, abdominal pain, nausea, vomiting, urinary incontinence/retention, dysuria, frequency, urgency, hematuria, bowel changes, constipation, incontinence, melena, rashes, recent changes to medication. Patient initially presented to the ED moderately hypotensive BP 87/49, 83/47, patient received fluid bolus and pain control resulting in improvement on admit temp 98.2?, 124/46, 70, 18, 98% on room air. H&H 11.4/35.5, (last 07/04/22 Hgb 14.5) the remainder of patient's labs are unremarkable, troponin negative, with the exception of BNP 1310, total protein 6.1, albumin 3.3. EKG ventricle paced at a rate of [address] or T-wave changes. GCS 15, COVID is negative. Chest x-ray mildly predominant interstitium, borderline cardiomegaly, possible basal atelectasis. Left lower extremity CT demonstrates mildly displaced left proximal femur periprosthetic fracture. X-ray of left shoulder demonstrates distal clavicle fracture. Left knee x-ray trace joint effusion. Head CT is negative for any intracranial acute process. C-spine is negative. Patient typed and crossed blood type: O positive. Patient admitted for observation ground level fall resulting in pathological left proximal femur fracture and left distal clavicle fracture, left biceps skin tear, on Eliquis. Patient History Medical History Anemia Asthma Atrial fibrillation by electrocardiography Bullous pemphigoid (~10/2019) Chickenpox Cholelithiasis Chronic kidney disease (CKD) stage G2/A1, mildly decreased glomerular filtration rate (GFR) between 60-89 mL/min/1.73 square meter and albuminuria creatinine ratio less than 30 mg/g (09/06/17) Chronic obstructive pulmonary disease (10/19/16) Class 1 obesity (09/05/16) Diverticulosis of colon (~12/2020) Eczema Environmental allergies (09/05/16) Fatigue due to sleep pattern disturbance Hepatitis B core antibody positive History of torn meniscus of right knee Hyperlipidemia (01/25/11) Hypertension (01/25/11) Hypothyroidism (~2007) Insomnia due to medical condition Measles Morbid obesity with body mass index (BMI) of 40.0 to 49.9 Osteoarthritis (01/25/11) Pacemaker (~05/2021) Pedal edema Persistent atrial fibrillation Pulmonary nodules/lesions, multiple Recurrent sinusitis (~1999) Seasonal allergies Sigmoid diverticulosis Snoring Surgical History Anesthesia History of foot surgery History of hip replacement (~2010) History of hip replacement (~2012) History of radiofrequency ablation procedure for cardiac arrhythmia (~07/2019) Polyp of nasal sinus Status post hysterectomy with oophorectomy (~1996) Family & Social History Family History Father Heart disease Hypertension Mother Heart disease Stroke Hypertension Diabetes mellitus Dementia Grandfather Cancer Grandmother No problems noted. Grandfather No problems noted. Grandmother No problems noted. Brother Pacemaker Social History: household members spouse Prior Living Arrangements House Safety & Behavioral: Feels Safe in Current Yes Environment Been Physically Hurt or No Threatened By a Person Tobacco & Substance use: Tobacco type cigarettes Smoking Status Former smoker alcohol intake current alcohol intake frequency a few times a month Substance Use Type does not use Meds Home Medications and Allergies Home Medications Medication Instructions Recorded Confirmed Type cyanocobalamin (vitamin B-12) 1,000 mcg PO DAILY ##0 08/05/16 08/12/22 History 1,000 mcg tablet,extended release omeprazole magnesium 20 mg 20 mg PO DAILY 06/07/18 08/12/22 History tablet,delayed release (Prilosec OTC) losartan 50 mg tablet 50 mg PO DAILY 12/25/18 08/12/22 History albuterol sulfate 90 mcg/actuation 2 - 4 puff inhalation Q4H PRN 04/08/20 08/12/22 Rx aerosol inhaler (Ventolin HFA) Shortness Of Breath #8.5 grams flecainide 50 mg tablet 100 mg PO BID 06/14/21 08/12/22 History metoprolol succinate 50 mg 100 mg PO BID 07/07/21 08/12/22 History tablet,extended release 24 hr potassium chloride 10 mEq 10 meq PO BEDTIME 07/07/21 08/12/22 History tablet,extended release(part/cryst) ferrous sulfate 325 mg (65 mg 325 mg PO Q OTHER DAY 08/18/21 08/12/22 History iron) tablet apixaban 5 mg tablet (Eliquis) 5 mg PO BID #120 tabs 12/29/21 08/12/22 Rx mycophenolate mofetil 500 mg tablet 1,000 mg PO BID 02/06/22 08/12/22 History pramipexole 0.125 mg tablet 0.125 mg PO BEDTIME #90 tabs 05/13/22 08/12/22 Rx atorvastatin 10 mg tablet See Rx Instructions .Route 06/06/22 08/12/22 Rx .COMPLEX #90 tabs trazodone 50 mg tablet See Rx Instructions PO BEDTIME PRN 07/20/22 08/12/22 Rx insomnia #30 tabs levothyroxine 75 mcg tablet See Rx Instructions .Route 08/01/22 08/12/22 Rx .COMPLEX #30 tabs tramadol 50 mg tablet 50 mg PO TID PRN Pain (Scale Score 08/12/22 08/12/22 History 7-10) Allergies Allergy/AdvReac Type Severity Reaction Status Date / Time diuretics AdvReac Rash Uncoded 08/12/22 17:29 Review of Systems Review of Systems Narrative: All 12 point systems reviewed with the patient and are negative except otherwise documented. Exam Vital Signs (past 8 hours): - 08/12/22 13:30 08/12/22 13:35 08/12/22 13:40 Temperature Pulse Rate 60 60 60 Respiratory Rate 22 Blood Pressure Pulse Oximetry 96 96 95 Oxygen Delivery Method 08/12/22 13:45 08/12/22 13:50 08/12/22 13:54 Temperature Pulse Rate 60 60 Respiratory Rate 20 17 Blood Pressure 123/57 L Pulse Oximetry 97 97 Oxygen Delivery Method 08/12/22 13:54 08/12/22 14:00 08/12/22 14:01 Temperature Pulse Rate 60 66 64 Respiratory Rate 18 22 20 Blood Pressure Pulse Oximetry 96 97 98 Oxygen Delivery Method 08/12/22 14:01 08/12/22 14:10 08/12/22 14:10 Temperature Pulse Rate 66 Respiratory Rate Blood Pressure 152/63 H 153/64 H Pulse Oximetry 94 Oxygen Delivery Method 08/12/22 14:20 08/12/22 14:20 08/12/22 14:30 Temperature Pulse Rate 60 Respiratory Rate 20 Blood Pressure 135/62 139/69 Pulse Oximetry 95 Oxygen Delivery Method 08/12/22 14:30 08/12/22 14:40 08/12/22 14:40 Temperature Pulse Rate 61 97 H Respiratory Rate 22 25 H Blood Pressure 159/68 H Pulse Oximetry 95 94 Oxygen Delivery Method 08/12/22 14:54 08/12/22 14:57 08/12/22 14:57 Temperature Pulse Rate 58 L 71 Respiratory Rate 17 Blood Pressure 160/83 H Pulse Oximetry 95 92 Oxygen Delivery Method 08/12/22 15:00 08/12/22 15:01 08/12/22 15:01 Temperature Pulse Rate 60 62 Respiratory Rate 14 14 Blood Pressure 125/61 Pulse Oximetry 94 94 Oxygen Delivery Method 08/12/22 15:10 08/12/22 15:11 08/12/22 15:11 Temperature Pulse Rate 60 61 Respiratory Rate 9 L 14 Blood Pressure 128/60 Pulse Oximetry 92 Oxygen Delivery Method 08/12/22 15:20 08/12/22 15:20 08/12/22 15:30 Temperature Pulse Rate 60 Respiratory Rate 16 Blood Pressure 127/65 126/63 Pulse Oximetry 93 Oxygen Delivery Method 08/12/22 15:30 08/12/22 15:40 08/12/22 15:40 Temperature Pulse Rate 60 60 Respiratory Rate 22 13 Blood Pressure 129/62 Pulse Oximetry 94 Oxygen Delivery Method 08/12/22 15:50 08/12/22 15:50 08/12/22 16:00 Temperature Pulse Rate 62 Respiratory Rate 16 Blood Pressure 139/63 131/61 Pulse Oximetry 94 Oxygen Delivery Method 08/12/22 16:00 08/12/22 16:10 08/12/22 16:10 Temperature Pulse Rate 64 64 Respiratory Rate 14 16 Blood Pressure 137/62 Pulse Oximetry 99 93 Oxygen Delivery Method Room Air 08/12/22 16:20 08/12/22 16:20 08/12/22 16:30 Temperature Pulse Rate 65 Respiratory Rate 17 Blood Pressure 134/61 138/67 Pulse Oximetry 95 Oxygen Delivery Method 08/12/22 16:30 08/12/22 16:40 08/12/22 16:40 Temperature Pulse Rate 64 63 Respiratory Rate 18 21 Blood Pressure 135/70 Pulse Oximetry 92 92 Oxygen Delivery Method 08/12/22 16:50 08/12/22 16:50 08/12/22 17:00 Temperature Pulse Rate 70 Respiratory Rate 22 Blood Pressure 149/75 H 132/62 Pulse Oximetry 95 Oxygen Delivery Method 08/12/22 17:00 08/12/22 17:10 08/12/22 17:10 Temperature Pulse Rate 66 64 Respiratory Rate 21 13 Blood Pressure 141/70 H Pulse Oximetry 92 95 Oxygen Delivery Method 08/12/22 17:20 08/12/22 17:20 08/12/22 17:30 Temperature Pulse Rate 67 Respiratory Rate 19 Blood Pressure 143/61 H 140/83 Pulse Oximetry Oxygen Delivery Method 08/12/22 17:40 08/12/22 17:50 08/12/22 18:32 Temperature 98.2 F Pulse Rate 70 Respiratory Rate 18 Blood Pressure 133/61 131/75 124/46 L Pulse Oximetry 98 Oxygen Delivery Method 08/12/22 18:41 08/12/22 18:41 08/12/22 21:11 Temperature 98.2 F 97.4 F L Pulse Rate 70 72 Respiratory Rate 18 16 Blood Pressure 124/46 L 110/41 L Pulse Oximetry 98 98 98 Oxygen Delivery Method Room Air 08/12/22 21:24 Temperature Pulse Rate 67 Respiratory Rate Blood Pressure 136/59 L Pulse Oximetry Oxygen Delivery Method Oxygen Delivery Method Room Air Narrative Exam Narrative: GEN:.? Patient is a kimmy elderly female, well-nourished, in no distress at this time. HEAD: No evidence of trauma, no raccoon/Hicks sign. NECK: Nontender, painless range of motion, trachea midline Negative Nexus criteria, no line tenderness, distracting injury, altered mental status, neuro deficit, recent EtOH. EYES: PERRLA, EOMI ENT: External inspection normal, trachea is midline, TM's are normal no hemotypanum, Nares are clear, no septal hematoma, no dental or oral injury, pale conjunctiva, airway is normal and with normal occlusion, No bony tenderness RESP: Chest is nontender and has symmetric movement, no ecchymosis, breath sounds are normal no crackles, wheezes or rales CVS: Bradycardic regular rhythm with no murmur noted, No JVD. ABG/GI: Nontender, soft, normal bowel sounds x4 , no distention, no organomegaly, pelvic rock is negative NEURO: Oriented AOx3, neuro is grossly intact, sensation and motor is normal all 4 extremities moving, cranial nerves II through XII are intact, GCS is 15.? PSYCH: Normal mood and affect, thought process, decision-making are appropriate for age. SKIN: Intact except for skin tear with ecchymosis of the left posterior bicep, abrasion to right elbow, patient has noted Puraply vac in place w/dressing to po sterior left thigh, without signs of infection- warm and dry, no crepitus and without decubitus BACK: No CVA tenderness, no vertebral tenderness, no step-off's, no crepitus EXT:? Patient has tenderness over the left hip/thigh.? Slightly tender over the knee and has pain with movement at the knee and hip as well.? Left lower extremity has compression stocking, and dressing over left ankle wound. No obvious deformity but somewhat difficult to tell from habitus.?Trace edema bilaterally. ? Patient has 2+ pulses upper and lower extremities.? Equal model maker scale and normal dorsiflexion plantar flexion bilaterally. Objective Labs 08/12/22 12:50 08/12/22 12:50 Labs: Laboratory Results - last 24 hr 08/12/22 08/12/22 08/12/22 12:50 12:50 12:50 WBC 9.3 RBC 4.19 Hgb 11.4 L Hct 35.5 L MCV 84.7 MCH 27.2 MCHC 32.1 RDW 17.5 H Plt Count 294 Neut % (Auto) 75.6 H Lymph % (Auto) 14.3 L [place] % (Auto) 7.5 Eos % (Auto) 2.0 Baso % (Auto) 0.6 Neut # (Auto) 7000 Lymph # (Auto) 1300 [place] # (Auto) 700 Eos # (Auto) 200 Baso # (Auto) 100 PT 14.2 H INR 1.2 APTT 28 Sodium 136 L Potassium 4.1 Chloride 98 Carbon Dioxide 30 BUN 13 Creatinine 0.75 Estimated GFR > 60 BUN/Creatinine Ratio 17.3 Glucose 114 H Calcium 8.6 Total Bilirubin 0.6 AST 30 ALT 17 Alkaline Phosphatase 108 Total Creatine Kinase 113 CK-MB (CK-2) 1.85 CK-MB (CK-2) Rel Index 1.6 Troponin I < 0.012 NT-Pro-B Natriuret Pep 1310 H Total Protein 6.1 L Albumin 3.3 L Globulin 2.8 Albumin/Globulin Ratio 1.2 Lipase 63 SARS-CoV-2 (PCR) Blood Type Antibody Screen 08/12/22 08/12/22 12:50 14:15 WBC RBC Hgb Hct MCV MCH MCHC RDW Plt Count Neut % (Auto) Lymph % (Auto) [place] % (Auto) Eos % (Auto) Baso % (Auto) Neut # (Auto) Lymph # (Auto) [place] # (Auto) Eos # (Auto) Baso # (Auto) PT INR APTT Sodium Potassium Chloride Carbon Dioxide BUN Creatinine Estimated GFR BUN/Creatinine Ratio Glucose Calcium Total Bilirubin AST ALT Alkaline Phosphatase Total Creatine Kinase CK-MB (CK-2) CK-MB (CK-2) Rel Index Troponin I NT-Pro-B Natriuret Pep Total Protein Albumin Globulin Albumin/Globulin Ratio Lipase SARS-CoV-2 (PCR) Negative Blood Type O Positive Antibody Screen Negative Assessment & Plan Assessment & Plan narrative: Mishel Reeder is a 72-year-old female?former smoker with history of chronic iron def anemia, paroxysmal atrial fibrillation on eliquis-post ablation with recent pacemaker placement 05/03/2021, SSS, COPD, CKD stage G2/A1, hyperlipidemia, hypothyroidism, peripheral neuropathy,? 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 1. Ground level fall resulting in pathological left proximal femur fracture and left distal clavicle fracture, left biceps skin tear, acute, present on admission -Left lower extremity CT demonstrates mildly displaced left proximal femur periprosthetic fracture. X-ray of left shoulder demonstrates distal clavicle fracture. -Dr. Lynch was consulted by ED who felt fractures were nonoperable, authorized touch toe weight-bearing max 20 lb and repeat imaging in 2 weeks. -Placed Syed consult -pain management, ice, lidocaine, ice, meds -PT/OT consult, wound care evaluation of right elbow, left bicep skin tear -SENIOR RD ENGINEER consult likely will require SNF or rehab placement on discharge 2. Chronic left thigh cellulitis, w/bulbous sigmoid left ankle wound, acute on chronic, secondary to Autoimmune Bullous pemphigoid, acute on chronic, present on admission -patient is unable to tolerate diuretics as they cause pemphigoid/ bollous flare/outbreaks. -managed by Wound clinic ongoing-puraply vaccum applied 07/29/2022, in place- completed doxycycline treatment. -since 02/21- Dr. Mark I&D on 07/29/2022 for abscess cellulitis of the left thigh, and full-thickness bulbous sigmoid left ankle wound check on 07/31/2022. -continue CellCept-attempts are being made to change to/ trial patient on Dupixent. -Ordered blood cultures 3.. Anemia, Iron deficiency, Chronic, present on admssion- in remission -H&H 11.4/35.5-(last 07/04/22 Hgb 14.5) H&H have been normal since 08/2021 - Managed by -Dr. Hill hematology & PCP -continue ferrous sulfate -monitor H&H, bleeding, guaiac as needed -typed and crossed blood type: O positive. 4. Paroxysmal atrial fibrillation, w/SSS, post ablation, pace maker placement (05/2021), on chronic anticoagulation, chronic, history of bilateral PE (2021) present on admission-stable -Continue Eliquis 5 mg b.i.d. (Failed Xeralto) -Managed by Cardiology -continue flecainide, losartan, metoprolol -Pt on Telemed -Echo 02/28/2019 Dr. Nathan left EF 60+/-5%-moderate mitral valve regurgitation, tricuspid regurgitation. 5. Essential hypertension, chronic, present on admission-stable -continue losartan, flecainide, metoprolol -Admitting B/P 125/46 6. Hyperlipidemia, chronic, present on admission -Continue Lipitor 7. Peripheral neuropathy, chronic, present on admission -Continue tramadol 8. Restless leg syndrome, chronic, present on admission -Continue pramipexole 9. Hypothyroidism, acquired, chronic, present on admission -continue levothyroxine 10. GERD, chronic, present on admission -continue omeprazole 11. Insomnia, chronic, Present on admission -continue Trazadone 12. Obesity, moderate, acute on chronic, present on admission -dietary consult ordered regarding nutritional education and information for dietary, lifestyle, exercise, and weight changes. -the patient is at much higher risk for medical and surgical complications due to obesity as it relates to chronic illnesses:, and acute illness and injuries. The patient's obesity increases the difficulty and complexity of medical and/or surgical interventions, management and increases the chances of poor outcome such as morbidity and mortality as well as impaired wound healing. -as evidence by BMI of 38.7 -consult for dietary placed Code status:Full Surrogate decision maker: Spouse Keshav Reeder COVPOLO PCR:Negative COVID vaccination:? Pfizer x2, + booster DVT/VTE prophylaxis: Patient on Eliquis, SCD to right leg only Disposition: Patient admitted for observation to monitor for bleeding, pain control, ortho/PT/OT evaluation will likely be requiring rehab placement. I have utilized all available immediate resources to obtain, update, or review the patient's current medications. I confirmed that the patient's advanced care plan is present, Code status is documented and/or surrogate decision maker is listed in the patient's medical record. I have personally reviewed patient's chart notes from PCP, specialists, diagnostic imaging, and laboratory results. Time Spent With Patient Critical Care time: I spent a total of [] minutes of critical care time on this patient's care today; this time is exclusive of procedural time. Quality VTE Deep Vein Thrombosis/Pulmonary Embolism Present on Admission: No
[2022-08-12] MEDS: METOPROLOL ER 50 MG TABLET 100 MG PO (21:28)
[2022-08-12] MEDS: SODIUM CHLORIDE 0.9% 500 ML 60 ML IV (22:23)
[2022-08-13] VITALS (11 sets, daily range): BP systolic 100–128; BP diastolic 39–84; PULSE 68–75; RESP 14–18; TEMP 36.3–37.3; O2SAT 90–95
[2022-08-13] MEDS: OXYCODONE IR 5 MG TABLET 10 MG PO ×2 (04:41→11:39)
[2022-08-13 05:51] LABS: Add Manual Diff / Slide Review NO; Basophils Absolute Auto 0 /uL (0-100); Basophils Percent Auto 0.6 % (0-2); Eosinophils Absolute Auto 100 /uL (0-450); Eosinophils Percent Auto 1.7 % (2-4); Hematocrit 32.2 % (36-46); Hemoglobin 10.5 g/dL (12.0-16.0); Lymphocytes Absolute Auto 800 /uL (1100-4500); Lymphocytes Percent Auto 10.2 % (25-40); Mean Corpuscular HGB Conc 32.5 % (30-36); Mean Corpuscular Hemoglobin 27.5 PG (26-34); Mean Corpuscular Volume 84.6 fL (80-100); Monocytes Absolute Auto 800 /uL (0-900); Monocytes Percent Auto 10.3 % (3-14); Neutrophils Absolute Auto 6000 /uL (1500-7000); Neutrophils Percent Auto 77.2 % (50-75); Platelet Count 230 X10^3/uL (150-400); Red Blood Cell Count 3.81 X10^6/uL (4.0-5.2); Red Cell Distribution Width 17.2 % (11.6-14.8); White Blood Cell Count 7.8 X10^3/uL (4.5-11.0)
[2022-08-13 06:00] LABS: BUN Creatinine Ratio 17.9 (6-22); Blood Urea Nitrogen 17 mg/dL (7-17); Calcium 7.8 mg/dL (8.4-10.2); Carbon Dioxide 28 mmol/L (22-32); Chloride 100 mmol/L (98-107); Estimated Glomerular Filt Rate > 60 mL/min (>60); Glucose 105 mg/dL (80-110); HEMOLYSIS < 15 (0-50); Magnesium 1.3 mg/dL (1.6-2.3); Potassium 4.6 mmol/L (3.4-5.1); Sodium 132 mmol/L (137-145)
[2022-08-13] MEDS: SODIUM CHLORIDE 0.9% 500 ML 60 ML IV (06:55)
[2022-08-13] MEDS: MAGNESIUM SULFATE 2 GM/50 ML PIGGYBACK IV (08:01)
[2022-08-13] MEDS: HYDROMORPHONE 1 MG INJ IV ×2 (08:28→16:48)
[2022-08-13] MEDS: ONDANSETRON 4 MG/2 ML INJ IV (08:31)
[2022-08-13] MEDS: FLECAINIDE 100 MG TABLET PO ×2 (08:32→20:49)
[2022-08-13] MEDS: METOPROLOL ER 50 MG TABLET 100 MG PO (08:32)
[2022-08-13] MEDS: MYCOPHENOLATE MOFETIL 500 MG TABLET 1000 MG PO ×2 (08:33→20:47)
[2022-08-13] MEDS: APIXABAN 5 MG TABLET PO ×2 (08:33→20:48)
[2022-08-13] MEDS: LOSARTAN 50 MG TABLET PO (08:33)
[2022-08-13] MEDS: FERROUS SULFATE 325 MG TABLET PO (08:36)
[2022-08-13] MEDS: LIDOCAINE PATCH 1 EACH ADH..PATCH TOP (11:12)
[2022-08-13] MEDS: ACETAMINOPHEN 325 MG TABLET 650 MG PO (11:40)
--- NOTE | 2022-08-13 12:06 | P.CONS_ITS ---
History of Present Illness Consult details Date Patient Seen: 08/13/22 Time Patient Seen: 12:07 Chief complaint: fell down in [facility] on thinners hurt LT side Reason for consult: Left CHANCE periprosthetic fracture, left distal clavicle fracture Requesting provider: Guillermina Salgado Narrative: Mishel Reeder is a 72-year-old female?former smoker with history of chronic iron def anemia, paroxysmal atrial fibrillation on eliquis-post ablation with recent pacemaker placement 05/03/2021, SSS, Hx of Domenic PE (2021),COPD, CKD stage G2/A1, hyperlipidemia, hypothyroidism, peripheral neuropathy,? morbid obesity, YONI/Cpap, insomnia, oa, ambulates with cane/walker She has chronic cellulitis left thigh since 02/21- Dr. 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 The patient had a ground level fall on 08/12/2022 while leaving her wound care appointment. She is c/o left hip, left shoulder pain.? She also suffered a left upper extremity skin tear as she hit the door frame. She presented to the ER and was diagnosed with a left distal clavicle fracture as well as a left total hip arthroplasty periprosthetic greater trochanteric fracture. Patient underwent bilateral total hip arthroplasties with Dr. Arteaga in [place] in approximately 2014. She denies any fevers, chills, night sweats. No excruciating pain with small left hip movements. She is on Eliquis baseline. She has some baseline left lower extremity numbness. Denies any chest pain or shortness of breath. Meds Home Medications and Allergies Home Medications Medication Instructions Recorded Confirmed Type cyanocobalamin (vitamin B-12) 1,000 mcg PO DAILY ##0 08/05/16 08/12/22 History 1,000 mcg tablet,extended release omeprazole magnesium 20 mg 20 mg PO DAILY 06/07/18 08/12/22 History tablet,delayed release (Prilosec OTC) losartan 50 mg tablet 50 mg PO DAILY 12/25/18 08/12/22 History albuterol sulfate 90 mcg/actuation 2 - 4 puff inhalation Q4H PRN 04/08/20 08/12/22 Rx aerosol inhaler (Ventolin HFA) Shortness Of Breath #8.5 grams flecainide 50 mg tablet 100 mg PO BID 06/14/21 08/12/22 History metoprolol succinate 50 mg 100 mg PO BID 07/07/21 08/12/22 History tablet,extended release 24 hr potassium chloride 10 mEq 10 meq PO BEDTIME 07/07/21 08/12/22 History tablet,extended release(part/cryst) ferrous sulfate 325 mg (65 mg 325 mg PO Q OTHER DAY 08/18/21 08/12/22 History iron) tablet apixaban 5 mg tablet (Eliquis) 5 mg PO BID #120 tabs 12/29/21 08/12/22 Rx mycophenolate mofetil 500 mg tablet 1,000 mg PO BID 02/06/22 08/12/22 History pramipexole 0.125 mg tablet 0.125 mg PO BEDTIME #90 tabs 05/13/22 08/12/22 Rx atorvastatin 10 mg tablet See Rx Instructions .Route 06/06/22 08/12/22 Rx .COMPLEX #90 tabs trazodone 50 mg tablet See Rx Instructions PO BEDTIME PRN 07/20/22 08/12/22 Rx insomnia #30 tabs levothyroxine 75 mcg tablet See Rx Instructions .Route 08/01/22 08/12/22 Rx .COMPLEX #30 tabs tramadol 50 mg tablet 50 mg PO TID PRN Pain (Scale Score 08/12/22 08/12/22 History 7-10) Allergies Allergy/AdvReac Type Severity Reaction Status Date / Time diuretics AdvReac Rash Uncoded 08/12/22 17:29 Exam Vital Signs (past 8 hours): - 08/13/22 04:38 08/13/22 05:22 08/13/22 08:31 Temperature 98.2 F 97.3 F L Pulse Rate 68 75 Respiratory Rate 17 16 Blood Pressure 128/59 L 126/60 Pulse Oximetry 93 93 91 Oxygen Delivery Method Room Air Oxygen Flow Rate 0 08/13/22 09:19 Temperature Pulse Rate Respiratory Rate Blood Pressure 126/60 Pulse Oximetry Oxygen Delivery Method Oxygen Flow Rate Oxygen Delivery Method Room Air Oxygen Flow Rate 0 Narrative Exam Narrative: Morning. Pleasant 72-year-old female, resting comfortably in bed, no acute distress. Her is at bedside. Left distal clavicle is tender to palpation, no apparent visible deformity is noted. She does have a skin tear on her left humerus, no surrounding erythema, induration, or thierry pus. Bilateral upper extremity: Motor functions are grossly intact, sensation is grossly intact to light touch. Left distal thigh I and D with wound VAC in place demonstrates no surrounding erythema, thierry pus or induration. Nontender to palpation. Left leg log roll demonstrates some mild pain in the proximal aspect the femur, no excruciating groin pain. Bilateral lower extremity: Motor functions are grossly intact, sensation is decreased left worse than right, patient notes this is her baseline. Bilateral calves are soft and nontender palpation Objective Labs 08/13/22 05:34 08/13/22 05:34 Labs: Laboratory Results - last 24 hr 08/12/22 08/12/22 08/12/22 12:50 12:50 12:50 WBC 9.3 RBC 4.19 Hgb 11.4 L Hct 35.5 L MCV 84.7 MCH 27.2 MCHC 32.1 RDW 17.5 H Plt Count 294 Neut % (Auto) 75.6 H Lymph % (Auto) 14.3 L [place] % (Auto) 7.5 Eos % (Auto) 2.0 Baso % (Auto) 0.6 Neut # (Auto) 7000 Lymph # (Auto) 1300 [place] # (Auto) 700 Eos # (Auto) 200 Baso # (Auto) 100 PT 14.2 H INR 1.2 APTT 28 Sodium 136 L Potassium 4.1 Chloride 98 Carbon Dioxide 30 BUN 13 Creatinine 0.75 Estimated GFR > 60 BUN/Creatinine Ratio 17.3 Glucose 114 H Calcium 8.6 Magnesium Total Bilirubin 0.6 AST 30 ALT 17 Alkaline Phosphatase 108 Total Creatine Kinase 113 CK-MB (CK-2) 1.85 CK-MB (CK-2) Rel Index 1.6 Troponin I < 0.012 NT-Pro-B Natriuret Pep 1310 H Total Protein 6.1 L Albumin 3.3 L Globulin 2.8 Albumin/Globulin Ratio 1.2 Lipase 63 SARS-CoV-2 (PCR) Blood Type Antibody Screen 08/12/22 08/12/22 08/13/22 12:50 14:15 05:34 WBC 7.8 RBC 3.81 L Hgb 10.5 L Hct 32.2 L MCV 84.6 MCH 27.5 MCHC 32.5 RDW 17.2 H Plt Count 230 Neut % (Auto) 77.2 H Lymph % (Auto) 10.2 L [place] % (Auto) 10.3 Eos % (Auto) 1.7 L Baso % (Auto) 0.6 Neut # (Auto) 6000 Lymph # (Auto) 800 L [place] # (Auto) 800 Eos # (Auto) 100 Baso # (Auto) 0 PT INR APTT Sodium Potassium Chloride Carbon Dioxide BUN Creatinine Estimated GFR BUN/Creatinine Ratio Glucose Calcium Magnesium Total Bilirubin AST ALT Alkaline Phosphatase Total Creatine Kinase CK-MB (CK-2) CK-MB (CK-2) Rel Index Troponin I NT-Pro-B Natriuret Pep Total Protein Albumin Globulin Albumin/Globulin Ratio Lipase SARS-CoV-2 (PCR) Negative Blood Type O Positive Antibody Screen Negative 08/13/22 05:34 WBC RBC Hgb Hct MCV MCH MCHC RDW Plt Count Neut % (Auto) Lymph % (Auto) [place] % (Auto) Eos % (Auto) Baso % (Auto) Neut # (Auto) Lymph # (Auto) [place] # (Auto) Eos # (Auto) Baso # (Auto) PT INR APTT Sodium 132 L Potassium 4.6 Chloride 100 Carbon Dioxide 28 BUN 17 Creatinine 0.95 Estimated GFR > 60 BUN/Creatinine Ratio 17.9 Glucose 105 Calcium 7.8 L Magnesium 1.3 L Total Bilirubin AST ALT Alkaline Phosphatase Total Creatine Kinase CK-MB (CK-2) CK-MB (CK-2) Rel Index Troponin I NT-Pro-B Natriuret Pep Total Protein Albumin Globulin Albumin/Globulin Ratio Lipase SARS-CoV-2 (PCR) Blood Type Antibody Screen COUNTS INCLUDE 234 BEDS AT THE [facility] Medical History Anemia Asthma Atrial fibrillation by electrocardiography Bullous pemphigoid (~10/2019) Chickenpox Cholelithiasis Chronic kidney disease (CKD) stage G2/A1, mildly decreased glomerular filtration rate (GFR) between 60-89 mL/min/1.73 square meter and albuminuria creatinine ratio less than 30 mg/g (09/06/17) Chronic obstructive pulmonary disease (10/19/16) Class 1 obesity (09/05/16) Diverticulosis of colon (~12/2020) Eczema Environmental allergies (09/05/16) Fatigue due to sleep pattern disturbance Hepatitis B core antibody positive History of torn meniscus of right knee Hyperlipidemia (01/25/11) Hypertension (01/25/11) Hypothyroidism (~2007) Insomnia due to medical condition Measles Morbid obesity with body mass index (BMI) of 40.0 to 49.9 Osteoarthritis (01/25/11) Pacemaker (~05/2021) Pedal edema Persistent atrial fibrillation Pulmonary nodules/lesions, multiple Recurrent sinusitis (~1999) Seasonal allergies Sigmoid diverticulosis Snoring Surgical History Anesthesia History of foot surgery History of hip replacement (~2010) History of hip replacement (~2012) History of radiofrequency ablation procedure for cardiac arrhythmia (~07/2019) Polyp of nasal sinus Status post hysterectomy with oophorectomy (~1996) Family History Father Heart disease Hypertension Mother Heart disease Stroke Hypertension Diabetes mellitus Dementia Grandfather Cancer Grandmother No problems noted. Grandfather No problems noted. Grandmother No problems noted. Brother Pacemaker Social History marital status: household members: spouse occupational status: previously employed Tobacco & Substance Use Smoking Status: Former smoker alcohol intake: current substance use type: does not use Assessment & Plan Assessment and plan (1) Nida-prosthetic fracture around prosthetic hip: Status: Acute (2) Clavicle fracture: Status: Acute (3) Abscess of left thigh: Status: Acute (4) Fall: Status: Acute (5) Skin tear of left upper extremity: Status: Acute Plan -left distal clavicle fracture -left hip periprosthetic fracture of the greater trochanter -chronic anticoagulation use -chronic wound issues including a recent left distal thigh I and D approximately 2 weeks ago, left ankle chronic wound care treatment Assessment & Plan narrative: -non operative treatment for the left distal clavicle fracture, and left hip periprosthetic fracture as the implant appears to be well fixed distally, fracture along greater trochanter. -mobilize with PT/OT -20 lb weight-bearing on left lower extremity -weight-bearing as tolerated on left upper extremity -sling left upper extremity for comfort -continue with multimodal pain management -Eliquis baseline should be sufficient for DVT prophylaxis -continue with current wound care treatment regimen -follow-up with Orthopedics in 2-3 weeks for repeat x-rays: AP pelvis and left lateral hip; two views left clavicle -disposition per primary team Time Spent With Patient Critical Care time: I spent a total of [] minutes of critical care time on this patient's care today; this time is exclusive of procedural time.
--- NOTE | 2022-08-13 12:08 | PT-IP ANOTE ---
PT eval received and EMR reviewed. pt with GLF and sustained a L femur periprosthetic fracture and L distal clavicular fx. Per EMR, pt's L femur fx is non-operable and per Dr. Lynch, pt will be TTWB on LLE with 20# max weight. No protocols given of L clavicular fx. Talked to DAYDAY Jackson today for clarification and will inform PT once consultation is completed. PT eval on hold this morning until clarification received for L clavicular fx protocols.
--- NOTE | 2022-08-13 13:06 | PM.PN.1 ---
Subjective Subjective Date Patient Seen: 08/13/22 Interval history: 72 F admitted with non-operative femur and clavicular fx. Still in quite a bit of pain, requiring IV medications overnight. Otherwise denies complaints. No chest pain, shortnes of breath, nausea, vomiting. She has no dysuria or urinary frequency. Exam Vital Signs (past 8 hours): - 08/13/22 05:22 08/13/22 08:31 08/13/22 09:19 Temperature 98.2 F 97.3 F L Pulse Rate 68 75 Respiratory Rate 17 16 Blood Pressure 128/59 L 126/60 126/60 Pulse Oximetry 93 91 Oxygen Flow Rate 0 Oxygen Delivery Method Room Air Oxygen Flow Rate 0 Narrative Exam Narrative: GEN:.? Patient is a kimmy elderly female, well-nourished, in no distress at this time. CV: Bradycardic regular rhythm with no murmur noted, No JVD. PULM: CTA b/l GI: S NT ND NEURO: Oriented AOx3, neuro is grossly intact, sensation and motor is normal all 4 extremities moving, cranial nerves II through XII are intact, GCS is 15.? PSYCH: Normal mood and affect, thought process, decision-making are appropriate for age. SKIN: Intact except for skin tear with ecchymosis of the left posterior bicep, abrasion to right elbow, patient has noted wound vac in place w/dressing to posterior left thigh, without signs of infection- Objective Labs 08/13/22 05:34 08/13/22 05:34 Labs: Laboratory Results - last 24 hr 08/12/22 08/12/22 08/12/22 12:50 12:50 12:50 WBC 9.3 RBC 4.19 Hgb 11.4 L Hct 35.5 L MCV 84.7 MCH 27.2 MCHC 32.1 RDW 17.5 H Plt Count 294 Neut % (Auto) 75.6 H Lymph % (Auto) 14.3 L [place] % (Auto) 7.5 Eos % (Auto) 2.0 Baso % (Auto) 0.6 Neut # (Auto) 7000 Lymph # (Auto) 1300 [place] # (Auto) 700 Eos # (Auto) 200 Baso # (Auto) 100 PT 14.2 H INR 1.2 APTT 28 Sodium 136 L Potassium 4.1 Chloride 98 Carbon Dioxide 30 BUN 13 Creatinine 0.75 Estimated GFR > 60 BUN/Creatinine Ratio 17.3 Glucose 114 H Calcium 8.6 Magnesium Total Bilirubin 0.6 AST 30 ALT 17 Alkaline Phosphatase 108 Total Creatine Kinase 113 CK-MB (CK-2) 1.85 CK-MB (CK-2) Rel Index 1.6 Troponin I < 0.012 NT-Pro-B Natriuret Pep 1310 H Total Protein 6.1 L Albumin 3.3 L Globulin 2.8 Albumin/Globulin Ratio 1.2 Lipase 63 SARS-CoV-2 (PCR) Blood Type Antibody Screen 08/12/22 08/12/22 08/13/22 12:50 14:15 05:34 WBC 7.8 RBC 3.81 L Hgb 10.5 L Hct 32.2 L MCV 84.6 MCH 27.5 MCHC 32.5 RDW 17.2 H Plt Count 230 Neut % (Auto) 77.2 H Lymph % (Auto) 10.2 L [place] % (Auto) 10.3 Eos % (Auto) 1.7 L Baso % (Auto) 0.6 Neut # (Auto) 6000 Lymph # (Auto) 800 L [place] # (Auto) 800 Eos # (Auto) 100 Baso # (Auto) 0 PT INR APTT Sodium Potassium Chloride Carbon Dioxide BUN Creatinine Estimated GFR BUN/Creatinine Ratio Glucose Calcium Magnesium Total Bilirubin AST ALT Alkaline Phosphatase Total Creatine Kinase CK-MB (CK-2) CK-MB (CK-2) Rel Index Troponin I NT-Pro-B Natriuret Pep Total Protein Albumin Globulin Albumin/Globulin Ratio Lipase SARS-CoV-2 (PCR) Negative Blood Type O Positive Antibody Screen Negative 08/13/22 05:34 WBC RBC Hgb Hct MCV MCH MCHC RDW Plt Count Neut % (Auto) Lymph % (Auto) [place] % (Auto) Eos % (Auto) Baso % (Auto) Neut # (Auto) Lymph # (Auto) [place] # (Auto) Eos # (Auto) Baso # (Auto) PT INR APTT Sodium 132 L Potassium 4.6 Chloride 100 Carbon Dioxide 28 BUN 17 Creatinine 0.95 Estimated GFR > 60 BUN/Creatinine Ratio 17.9 Glucose 105 Calcium 7.8 L Magnesium 1.3 L Total Bilirubin AST ALT Alkaline Phosphatase Total Creatine Kinase CK-MB (CK-2) CK-MB (CK-2) Rel Index Troponin I NT-Pro-B Natriuret Pep Total Protein Albumin Globulin Albumin/Globulin Ratio Lipase SARS-CoV-2 (PCR) Blood Type Antibody Screen [facility] Medical History Anemia Asthma Atrial fibrillation by electrocardiography Bullous pemphigoid (~10/2019) Chickenpox Cholelithiasis Chronic kidney disease (CKD) stage G2/A1, mildly decreased glomerular filtration rate (GFR) between 60-89 mL/min/1.73 square meter and albuminuria creatinine ratio less than 30 mg/g (09/06/17) Chronic obstructive pulmonary disease (10/19/16) Class 1 obesity (09/05/16) Diverticulosis of colon (~12/2020) Eczema Environmental allergies (09/05/16) Fatigue due to sleep pattern disturbance Hepatitis B core antibody positive History of torn meniscus of right knee Hyperlipidemia (01/25/11) Hypertension (01/25/11) Hypothyroidism (~2007) Insomnia due to medical condition Measles Morbid obesity with body mass index (BMI) of 40.0 to 49.9 Osteoarthritis (01/25/11) Pacemaker (~05/2021) Pedal edema Persistent atrial fibrillation Pulmonary nodules/lesions, multiple Recurrent sinusitis (~1999) Seasonal allergies Sigmoid diverticulosis Snoring Surgical History Anesthesia History of foot surgery History of hip replacement (~2010) History of hip replacement (~2012) History of radiofrequency ablation procedure for cardiac arrhythmia (~07/2019) Polyp of nasal sinus Status post hysterectomy with oophorectomy (~1996) Family History Father Heart disease Hypertension Mother Heart disease Stroke Hypertension Diabetes mellitus Dementia Grandfather Cancer Grandmother No problems noted. Grandfather No problems noted. Grandmother No problems noted. Brother Pacemaker Social History marital status: household members: spouse occupational status: previously employed Smoking Status: Former smoker alcohol intake: current substance use type: does not use Assessment & Plan Assessment & Plan narrative: Mishel Reeder is a 72-year-old female?former smoker with history of chronic iron def anemia, paroxysmal atrial fibrillation on eliquis-post ablation with recent pacemaker placement 05/03/2021, SSS, COPD, CKD stage G2/A1, hyperlipidemia, hypothyroidism, peripheral neuropathy,? 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 Her pain was difficult to control, requiring IV medications and was changed to inpatient given expected stay beyond two midnights. Probable need for SNF pending PT/OT 1. Ground level fall resulting in pathological left proximal femur fracture and left distal clavicle fracture, left biceps skin tear, acute, present on admission -Left lower extremity CT demonstrates mildly displaced left proximal femur periprosthetic fracture. X-ray of left shoulder demonstrates distal clavicle fracture. -Dr. Lynch was consulted by ED who felt fractures were nonoperable, authorized touch toe weight-bearing max 20 lb and repeat imaging in 2 weeks. -Appreciate ortho consultation. -pain management, ice, lidocaine, ice, meds -PT/OT consult -[employer] consult likely will require SNF or rehab placement on discharge 2. Bullous pemphigoid, acute on chronic, present on admission with hx of cellulitis -patient is unable to tolerate diuretics as they cause pemphigoid/ bollous flare/outbreaks. -managed by Wound clinic ongoing-puraply vaccum applied 07/29/2022, in place- completed doxycycline treatment. -since 02/21- Dr. Mark I&D on 07/29/2022 for abscess cellulitis of the left thigh, and full-thickness bulbous sigmoid left ankle wound check on 07/31/2022. -continue CellCept-attempts are being made to change to/ trial patient on Dupixent. -Ordered blood cultures 3.. Anemia, Iron deficiency, Chronic, present on admssion- in remission -H&H 11.4/35.5-(last 07/04/22 Hgb 14.5) H&H have been normal since 08/2021 - Managed by -Dr. Hill hematology & PCP -continue ferrous sulfate -monitor H&H, bleeding, guaiac as needed -typed and crossed blood type: O positive. 4. Paroxysmal atrial fibrillation, w/SSS, post ablation, pace maker placement (05/2021), on chronic anticoagulation, chronic, history of bilateral PE (2021) present on admission-stable -Continue Eliquis 5 mg b.i.d. (Failed Xeralto) -Managed by Cardiology -continue flecainide, losartan, metoprolol -Pt on Telemed -Echo 02/28/2019 Dr. Nathan left EF 60+/-5%-moderate mitral valve regurgitation, tricuspid regurgitation. 5. Essential hypertension, chronic, present on admission-stable -continue losartan, flecainide, metoprolol -Admitting B/P 125/46 6. Hyperlipidemia, chronic, present on admission -Continue Lipitor 7. Peripheral neuropathy, chronic, present on admission -Continue tramadol 8. Restless leg syndrome, chronic, present on admission -Continue pramipexole 9. Hypothyroidism, acquired, chronic, present on admission -continue levothyroxine 10. GERD, chronic, present on admission -continue omeprazole 11. Insomnia, chronic, Present on admission -continue Trazadone 12. Obesity, moderate, acute on chronic, present on admission -dietary consult ordered regarding nutritional education and information for dietary, lifestyle, exercise, and weight changes. -the patient is at much higher risk for medical and surgical complications due to obesity as it relates to chronic illnesses:, and acute illness and injuries. The patient's obesity increases the difficulty and complexity of medical and/or surgical interventions, management and increases the chances of poor outcome such as morbidity and mortality as well as impaired wound healing. -as evidence by BMI of 38.7 -consult for dietary placed Code status:Full Surrogate decision maker: Spouse Keshav Reeder COVID PCR:Negative COVID vaccination:? Pfizer x2, + booster DVT/VTE prophylaxis: Patient on Eliquis, SCD to right leg only Disposition: Inpatient today, probable SNF pending PT / OT. Time Spent With Patient Critical Care time: I spent a total of [] minutes of critical care time on this patient's care today; this time is exclusive of procedural time. Quality VTE Deep Vein Thrombosis/Pulmonary Embolism Present on Admission: No
--- NOTE | 2022-08-13 13:20 | PT.IIE ---
Current Diagnoses Cutaneous abscess of left lower limb (08/12/22) Periprosthetic fracture around other internal prosthetic joint, initial encounter (08/12/22) Laceration without foreign body of left upper arm, initial encounter (08/12/22) Fracture of unspecified part of unspecified clavicle, initial encounter for closed fracture (08/12/22) Unspecified fall, initial encounter (08/12/22) Presence of unspecified artificial hip joint (08/12/22) Surgical History (Last Reviewed 08/13/22 @ 12:10 by Brandie Jackson PA-C) Anesthesia History of foot surgery History of hip replacement (~2010) History of hip replacement (~2012) History of radiofrequency ablation procedure for cardiac arrhythmia (~07/2019) Polyp of nasal sinus Status post hysterectomy with oophorectomy (~1996) Medical History (Last Reviewed 08/13/22 @ 12:10 by Brandie Jackson PA-C) Anemia Asthma Atrial fibrillation by electrocardiography Bullous pemphigoid (~10/2019) Chickenpox Cholelithiasis Chronic kidney disease (CKD) stage G2/A1, mildly decreased glomerular filtration rate (GFR) between 60-89 mL/min/1.73 square meter and albuminuria creatinine ratio less than 30 mg/g (09/06/17) Chronic obstructive pulmonary disease (10/19/16) Class 1 obesity (09/05/16) Diverticulosis of colon (~12/2020) Eczema Environmental allergies (09/05/16) Fatigue due to sleep pattern disturbance Hepatitis B core antibody positive History of torn meniscus of right knee Hyperlipidemia (01/25/11) Hypertension (01/25/11) Hypothyroidism (~2007) Insomnia due to medical condition Measles Morbid obesity with body mass index (BMI) of 40.0 to 49.9 Osteoarthritis (01/25/11) Pacemaker (~05/2021) Pedal edema Persistent atrial fibrillation Pulmonary nodules/lesions, multiple Recurrent sinusitis (~1999) Seasonal allergies Sigmoid diverticulosis Snoring Physical Therapy Inpatient Evaluation/Re-Eval M1 PT/OT-IP Prior Functional Status Start: 08/13/22 16:42 Freq: NEEDED Status: Active Protocol: Document 08/13/22 13:20 AB (Rec: 08/13/22 17:01 AB [id number]) Medical Review Prior Functional Status Medical History Reviewed Yes Communication able to make needs known Mobility and Gait pt stated that she is modified independent with all mobilities and ambulation without AD indoors but occasionally uses a 4WW; uses a SPC for outdoor mobility Social History Household Members spouse Living Arrangements House Number of Floors (Floors) Two Floors Number of Stairs To Enter/Railing? pt stays on main level of the house ramp to enter Home Environment High Toilet,Walk in Shower, Built-In Shower Seat,Ramp Home Equipment Four Wheel Walker,Straight Cane,Hand Held Shower,Grab Bars Near Toilet,Grab Bars In Shower M2 PT-IP Current Condition Start: 08/13/22 16:42 Freq: NEEDED Status: Active Protocol: Document 08/13/22 13:20 AB (Rec: 08/13/22 17:01 AB [id number]) Physical Therapy Current Condition Current Condition Evaluation Date 08/13/22 Treatment Diagnosis GLF; L femur fx; L clavicular fx; difficulty in walking Onset Date 08/12/22 M3 PT-IP Subjective Start: 08/13/22 16:42 Freq: NEEDED Status: Active Protocol: Document 08/13/22 13:20 AB (Rec: 08/13/22 17:01 AB [id number]) Subjective Physical Therapy Visit Type Type Initial Evaluation Visit Start Time 13:20 Visit Stop Time 14:15 Total Visit Minutes 55 Number of RETAIL ASSET PROTECTION SPECIALIST Visits 0 Physical Therapy Visit Comments Patient Comments agreeable to do PT Therapy Pain Assessment Pain When Pain Assessed During Mobility Pain Present Pain Present Pain Reported Location Left Shoulder Scale Used pain scale not stated Pain Management Techniques Distraction,Modification of Treatment,Re-positioning, Timing of Activity with Medications M4 PT-IP Mobility and Gait Start: 08/13/22 16:42 Freq: NEEDED Status: Active Protocol: Document 08/13/22 13:20 AB (Rec: 08/13/22 17:01 AB [id number]) PT-Bed Mobility Assessment Supine to Sit Supine to Sit Maximum Assistance,2 Person Assistance,Head of Bed Elevated,Bedrails Sit to Supine Sit to Supine Maximum Assistance,2 Person Assistance,Head of Bed Elevated,Bedrails Scooting Scooting to Edge of Bed Dependent Scooting Up and Down in Bed Dependent PT-Transfer Assessment Sit to and From Stand Sit to and from Stand Maximum Assistance,2 Person Assistance,Use of Upper Extremities Equipment Transfer Assistive Device Gait Belt,Front Wheeled Walker Orthotic/Prosthetic Devices or Brace: No Comments Mobility Comments educated pt on TTWB on LLE with 20# max weight but informed pt that if unable to just do NWB for safety. pt agreed. stated that she will not put weight on LLE. informed pt that LUE is WBAT. completed supine to sit max A x 2 and max cues with HOB elevated and use of rail. able to sit on EOB max A initially . scooted on EOB requiring total A x 2. able to sit min A after repositioning. increase posterior trunk lean during sitting and cued to correct. instructed pt regarding NWB on LLE. completed sit to stand max A x 2 and max cues. pt completed x 2 reps. required max A x 2 for standing balance using FWW for support. pt requested to go back to bed. max A x 2 for sit to supine. total A x 2 for repositioning in bed. call light and table placed within reach. Gait Assessment Comments Gait Comments unable at this time PT-Balance Assessment Sitting Balance and Reactions Static Sitting Balance Ability Fair Dynamic Sitting Balance Ability Poor Standing Balance and Reactions Static Standing Balance Ability Poor Dynamic Standing Balance Ability Poor Device Used FWW M5 PT-IP Objective Assessments Start: 08/13/22 16:42 Freq: NEEDED Status: Active Protocol: Document 08/13/22 13:20 AB (Rec: 08/13/22 17:01 AB [id number]) Orientation Orientation/Cognition Level of Alertness Alert Orientation Name,Place,Situation Language Function Ability No Deficits Noted Safety Awareness Decreased Safety Awareness Memory Description No Deficits Noted Gross Range of Motion Lower Extremity ROM Assessment Within Functional Limits Strength Lower Extremity Strength Assessment Bilaterally Impaired Comments Strength Comments RLE: 3+/5 LLE: 3-/5 Muscle Tone Muscle Tone WNL Yes M6 PT-IP Treatment Start: 08/13/22 16:42 Freq: NEEDED Status: Active Protocol: Document 08/13/22 13:20 AB (Rec: 08/13/22 17:01 AB [id number]) Physical Therapy Treatment Education Education Provided Weight Bearing Status,Safety M7 PT-IP Assessment and Plan Start: 08/13/22 16:42 Freq: NEEDED Status: Active Protocol: Document 08/13/22 13:20 AB (Rec: 08/13/22 17:01 AB [id number]) PT Summary Assessment and Plan Potential Rehabilitation Potential Fair Status of Condition at Evaluation Evolving Summary Impairments Pain,ROM,Strength,Balance, Coordination,Sensation,Tone, Cognition,Bed Mobility, Transfers,Gait,Activity Tolerance Assessment Summary pt with a GLF sustaining a L proximal femur periprosthetic fx and L distal clavicular fx. per ortho MD, fractures are non operable. LLE is TTWB with 20# max weight, pt and PT opted to do NWB for safety as pt will not be able to gauge 20#. LUE is WBAT. pt also has dx bubous sigmoid and has LLE wounds and currently has a wound vac on. pt requiring max A x2 with mobility and unable to stand pivot transfer or ambulate at this time. pt will require a mechanical lift for transfers at this time. pt will need SNF rehab to improve strength and function. Goals Bed Mobility Goal Moderate Assistance Transfer Goal Moderate Assistance,Front Wheeled Walker Gait Goal Moderate Assistance,Front Wheel Walker Gait Distance 15 Other Goals improve bed mobility, transfers and ambulation CGA 25 ft Days to Meet Goals 10 Frequency of Treatment Frequency Of Treatment Once a Day Treatment Plan Physical Therapy Treatment Plan Bed Mobility Training,Transfer Training,Gait Training, Therapeutic Exercise,Balance Retraining,Discharge Planning, Hot or Cold Pack,Neuromuscular Re-ed,Coordination Retraining ,Manual Therapy Weight Bearing Status Allowed Weight Bearing Amount (enter % LLE: TTWB 20 # max or #) (%) LUE: WBAT Recommendations To Nursing Amount of Assist Needed Mechanical Lift Discharge Recommendations PT Discharge Recommendations SNF Rehab Transportation Needs at Discharge Wheelchair/Cabulance
--- NOTE | 2022-08-13 13:27 | CM.DPNOTE ---
Discharge Planning Note: Patient lying in bed, tired this morning from pain meds. Admitted yesterday, she is s/p GLF with periprosthetic L femur fracture and left clavicle fracture. She usually is independent with ADLs, uses a FWW/cane at home. Lives with spouse Keshav. Vac dressing intact to left thigh. Also dressing intact to left ankle. Under care of [facility] wound care, Barbara Borden for about a year. PT Eval Pending. Plan: Home with HH vs SNF. Zoya Meadows RN/DCP
[2022-08-13] MEDS: TRAMADOL 50 MG TABLET PO (20:49)
[2022-08-13] MEDS: PRAMIPEXOLE 0.125 MG TABLET PO (21:06)
[2022-08-13] MEDS: SODIUM CHLORIDE 0.9% FLUSH 10 ML IV (21:06)
[2022-08-14] VITALS (8 sets, daily range): BP systolic 101–141; BP diastolic 44–79; PULSE 61–72; RESP 14–21; TEMP 35.8–36.8; O2SAT 93–100
[2022-08-14 06:03] LABS: Add Manual Diff / Slide Review NO; Basophils Absolute Auto 100 /uL (0-100); Basophils Percent Auto 0.7 % (0-2); Eosinophils Absolute Auto 200 /uL (0-450); Eosinophils Percent Auto 2.2 % (2-4); Hematocrit 30.6 % (36-46); Lymphocytes Absolute Auto 900 /uL (1100-4500); Lymphocytes Percent Auto 10.9 % (25-40); Mean Corpuscular HGB Conc 32.6 % (30-36); Mean Corpuscular Hemoglobin 27.7 PG (26-34); Mean Corpuscular Volume 84.9 fL (80-100); Monocytes Absolute Auto 1000 /uL (0-900); Monocytes Percent Auto 12.2 % (3-14); Neutrophils Absolute Auto 6400 /uL (1500-7000); Platelet Count 187 X10^3/uL (150-400); Red Cell Distribution Width 17.3 % (11.6-14.8); White Blood Cell Count 8.6 X10^3/uL (4.5-11.0)
[2022-08-14 06:14] LABS: BUN Creatinine Ratio 19.3 (6-22); Blood Urea Nitrogen 27 mg/dL (7-17); Carbon Dioxide 26 mmol/L (22-32); Chloride 99 mmol/L (98-107); Estimated Glomerular Filt Rate 39 mL/min (>60); Glucose 100 mg/dL (80-110); HEMOLYSIS < 15 (0-50); Magnesium 1.8 mg/dL (1.6-2.3); Potassium 4.3 mmol/L (3.4-5.1); Sodium 131 mmol/L (137-145)
[2022-08-14] MEDS: OXYCODONE IR 5 MG TABLET 10 MG PO ×2 (06:34→19:24)
--- NOTE | 2022-08-14 06:51 | PC.NURSE ---
Patient reports feeling very dry and thirsty. Patient put out 200 ml dark yellow urine via purewick, and BPs have been low through the night (MAP has been WNL).
[2022-08-14] MEDS: APIXABAN 5 MG TABLET PO ×2 (08:42→20:08)
[2022-08-14] MEDS: FLECAINIDE 100 MG TABLET PO ×2 (08:42→20:08)
[2022-08-14] MEDS: MYCOPHENOLATE MOFETIL 500 MG TABLET 1000 MG PO ×2 (08:42→20:09)
--- NOTE | 2022-08-14 09:14 | PC.NURSE ---
Assess- Patient is alert and oriented x4. Patient has mulitple skin issues, including an abcess to l.leg with wound vac in place at 125mm suction. She has a fx femur, clavicle, and skin tears to her l.arm. Dressings have been changed and cleansed. CDI. She also has multiple bruises. She is not able to ambulate at this time but she did sit at the side of the bed. Resting now after eating breakfast.
--- NOTE | 2022-08-14 10:13 | PM.PN.1 ---
Exam Vital Signs (past 8 hours): - 08/14/22 03:12 08/14/22 04:00 08/14/22 07:00 Temperature 98.2 F 96.4 F L Pulse Rate 66 66 Respiratory Rate 16 21 Blood Pressure 106/67 114/58 L Pulse Oximetry 95 95 95 Oxygen Delivery Method Nasal Cannula Oxygen Flow Rate 2 2 2 08/14/22 08:50 Temperature Pulse Rate Respiratory Rate Blood Pressure Pulse Oximetry Oxygen Delivery Method Room Air Oxygen Flow Rate Fraction of Inspired Oxygen 28 Oxygen Delivery Method Room Air Oxygen Flow Rate 2 Objective Labs 08/14/22 05:33 08/14/22 05:33 Labs: Laboratory Results - last 24 hr 08/14/22 08/14/22 05:33 05:33 WBC 8.6 RBC 3.60 L Hgb 10.0 L Hct 30.6 L MCV 84.9 MCH 27.7 MCHC 32.6 RDW 17.3 H Plt Count 187 Neut % (Auto) 74.0 Lymph % (Auto) 10.9 L [place] % (Auto) 12.2 Eos % (Auto) 2.2 Baso % (Auto) 0.7 Neut # (Auto) 6400 Lymph # (Auto) 900 L [place] # (Auto) 1000 H Eos # (Auto) 200 Baso # (Auto) 100 Sodium 131 L Potassium 4.3 Chloride 99 Carbon Dioxide 26 BUN 27 H Creatinine 1.40 H Estimated GFR 39 L BUN/Creatinine Ratio 19.3 Glucose 100 Calcium 8.0 L Magnesium 1.8 PFSH Medical History Anemia Asthma Atrial fibrillation by electrocardiography Bullous pemphigoid (~10/2019) Chickenpox Cholelithiasis Chronic kidney disease (CKD) stage G2/A1, mildly decreased glomerular filtration rate (GFR) between 60-89 mL/min/1.73 square meter and albuminuria creatinine ratio less than 30 mg/g (09/06/17) Chronic obstructive pulmonary disease (10/19/16) Class 1 obesity (09/05/16) Diverticulosis of colon (~12/2020) Eczema Environmental allergies (09/05/16) Fatigue due to sleep pattern disturbance Hepatitis B core antibody positive History of torn meniscus of right knee Hyperlipidemia (01/25/11) Hypertension (01/25/11) Hypothyroidism (~2007) Insomnia due to medical condition Measles Morbid obesity with body mass index (BMI) of 40.0 to 49.9 Osteoarthritis (01/25/11) Pacemaker (~05/2021) Pedal edema Persistent atrial fibrillation Pulmonary nodules/lesions, multiple Recurrent sinusitis (~1999) Seasonal allergies Sigmoid diverticulosis Snoring Surgical History Anesthesia History of foot surgery History of hip replacement (~2010) History of hip replacement (~2012) History of radiofrequency ablation procedure for cardiac arrhythmia (~07/2019) Polyp of nasal sinus Status post hysterectomy with oophorectomy (~1996) Family History Father Heart disease Hypertension Mother Heart disease Stroke Hypertension Diabetes mellitus Dementia Grandfather Cancer Grandmother No problems noted. Grandfather No problems noted. Grandmother No problems noted. Brother Pacemaker Social History marital status: household members: spouse occupational status: previously employed Smoking Status: Former smoker alcohol intake: current substance use type: does not use Assessment & Plan Assessment & Plan narrative: No acute issue overnight. No S/s of DVT to LLE. Slow to progress with PT and mobilization due to left hip fracture and left sided clavicle fx. May partial weight bear to LLE per Dr. Lynch and use left arm as tolerated for walker use limited by pain due to clavicle fx. Currently no surgical treatment recommended. Follow up with orthopedic clinic 1-2 weeks after discharge. Time Spent With Patient Critical Care time: I spent a total of [] minutes of critical care time on this patient's care today; this time is exclusive of procedural time. Quality VTE Deep Vein Thrombosis/Pulmonary Embolism Present on Admission: No
[2022-08-14] MEDS: METOPROLOL ER 50 MG TABLET 100 MG PO ×2 (11:17→20:08)
[2022-08-14] MEDS: SODIUM CHLORIDE 0.9% FLUSH 10 ML IV ×2 (11:18→20:09)
--- NOTE | 2022-08-14 12:03 | CM.DPC ---
DCP SNF Planning: Per MD, pt making some progress and not yet stable for discharge. Per PT, due to pt's clavicle fx and femur fx and WBAT status difficult for pt to ambulate without significant physical assist and recommending SNF at d/c. SW met bedside with pt and she remembered this SW from her admission in the ED and explained the current recommendation of SNF and provided SNF Choice list via Ipad and paper. Pt confirms that she was really hopeful for home with spouse and HH but aware that she and spouse are older and may not be able to manage her current assist needs. Pt states her spouse, son and DIL are planning to visit today and watch the Superbowl so she will discuss SNF and SNF preferences with them and let SW know. Pt is straight Medicare and Inpt Status and no barriers to SNF or auth needed. Pt does currently have a home wound vac placed and if SNF may need SNF to get wound vac ordered prior to accepting. PASRR completed in anticipation of SNF. Plan: SW to follow later today with pt and family towards determining SNF preferences towards likely d/c to SNF pending progress. ALESSANDRA Sandoval
--- NOTE | 2022-08-14 14:19 | PM.PN.1 ---
Subjective Subjective Date Patient Seen: 08/14/22 Interval history: 72 F admitted with non-operative femur and clavicular fx. Still in quite a bit of pain. Otherwise denies complaints. No chest pain, shortnes of breath, nausea, vomiting. She has no dysuria or urinary frequency. Exam Vital Signs (past 8 hours): - 08/14/22 07:00 08/14/22 08:50 08/14/22 11:00 Temperature 96.4 F L 96.9 F L Pulse Rate 66 61 Respiratory Rate 21 20 Blood Pressure 114/58 L 111/79 Pulse Oximetry 95 96 Oxygen Delivery Method Room Air Oxygen Flow Rate 2 2 08/14/22 12:00 Temperature Pulse Rate Respiratory Rate Blood Pressure Pulse Oximetry Oxygen Delivery Method Room Air Oxygen Flow Rate Fraction of Inspired Oxygen 28 Oxygen Delivery Method Room Air Oxygen Flow Rate 2 Narrative Exam Narrative: GEN:.? Patient is a kimmy elderly female, well-nourished, in no distress at this time. CV: Bradycardic regular rhythm with no murmur noted, No JVD. PULM: CTA b/l GI: S NT ND NEURO: Oriented AOx3, neuro is grossly intact, sensation and motor is normal all 4 extremities moving, cranial nerves II through XII are intact? PSYCH: Normal mood and affect, thought process, decision-making are appropriate for age. SKIN: Intact except for skin tear with ecchymosis of the left posterior bicep, abrasion to right elbow, patient has noted wound vac in place w/dressing to posterior left thigh, without signs of infection- Objective Labs 08/14/22 05:33 08/14/22 05:33 Labs: Laboratory Results - last 24 hr 08/14/22 08/14/22 05:33 05:33 WBC 8.6 RBC 3.60 L Hgb 10.0 L Hct 30.6 L MCV 84.9 MCH 27.7 MCHC 32.6 RDW 17.3 H Plt Count 187 Neut % (Auto) 74.0 Lymph % (Auto) 10.9 L [place] % (Auto) 12.2 Eos % (Auto) 2.2 Baso % (Auto) 0.7 Neut # (Auto) 6400 Lymph # (Auto) 900 L [place] # (Auto) 1000 H Eos # (Auto) 200 Baso # (Auto) 100 Sodium 131 L Potassium 4.3 Chloride 99 Carbon Dioxide 26 BUN 27 H Creatinine 1.40 H Estimated GFR 39 L BUN/Creatinine Ratio 19.3 Glucose 100 Calcium 8.0 L Magnesium 1.8 PFSH Medical History Anemia Asthma Atrial fibrillation by electrocardiography Bullous pemphigoid (~10/2019) Chickenpox Cholelithiasis Chronic kidney disease (CKD) stage G2/A1, mildly decreased glomerular filtration rate (GFR) between 60-89 mL/min/1.73 square meter and albuminuria creatinine ratio less than 30 mg/g (09/06/17) Chronic obstructive pulmonary disease (10/19/16) Class 1 obesity (09/05/16) Diverticulosis of colon (~12/2020) Eczema Environmental allergies (09/05/16) Fatigue due to sleep pattern disturbance Hepatitis B core antibody positive History of torn meniscus of right knee Hyperlipidemia (01/25/11) Hypertension (01/25/11) Hypothyroidism (~2007) Insomnia due to medical condition Measles Morbid obesity with body mass index (BMI) of 40.0 to 49.9 Osteoarthritis (01/25/11) Pacemaker (~05/2021) Pedal edema Persistent atrial fibrillation Pulmonary nodules/lesions, multiple Recurrent sinusitis (~1999) Seasonal allergies Sigmoid diverticulosis Snoring Surgical History Anesthesia History of foot surgery History of hip replacement (~2010) History of hip replacement (~2012) History of radiofrequency ablation procedure for cardiac arrhythmia (~07/2019) Polyp of nasal sinus Status post hysterectomy with oophorectomy (~1996) Family History Father Heart disease Hypertension Mother Heart disease Stroke Hypertension Diabetes mellitus Dementia Grandfather Cancer Grandmother No problems noted. Grandfather No problems noted. Grandmother No problems noted. Brother Pacemaker Social History marital status: household members: spouse occupational status: previously employed Smoking Status: Former smoker alcohol intake: current substance use type: does not use Assessment & Plan Assessment & Plan narrative: Mishel Reeder is a 72-year-old female?former smoker with history of chronic iron def anemia, paroxysmal atrial fibrillation on eliquis-post ablation with recent pacemaker placement 05/03/2021, SSS, COPD, CKD stage G2/A1, hyperlipidemia, hypothyroidism, peripheral neuropathy,? 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 Her pain was difficult to control, requiring IV medications and was changed to inpatient given expected stay beyond two midnights. Probable need for SNF pending PT/OT 1. Ground level fall resulting in pathological left proximal femur fracture and left distal clavicle fracture, left biceps skin tear, acute, present on admission -Left lower extremity CT demonstrates mildly displaced left proximal femur periprosthetic fracture. X-ray of left shoulder demonstrates distal clavicle fracture. -Dr. Lynch was consulted by ED who felt fractures were nonoperable, authorized touch toe weight-bearing max 20 lb and repeat imaging in 2 weeks. -Appreciate ortho consultation. -pain management, ice, lidocaine, ice, meds -PT/OT consult -likely will require SNF or rehab placement on discharge 2. Bullous pemphigoid, acute on chronic, present on admission with hx of cellulitis -patient is unable to tolerate diuretics as they cause pemphigoid/ bollous flare/outbreaks. -managed by Wound clinic ongoing-puraply vaccum applied 07/29/2022, in place- completed doxycycline treatment. -since 02/21- Dr. Fink I&D on 07/29/2022 for abscess cellulitis of the left thigh, and full-thickness bulbous sigmoid left ankle wound check on 07/31/2022. -continue CellCept-attempts are being made to change to/ trial patient on Dupixent. -Ordered blood cultures 3.. Anemia, Iron deficiency, Chronic, present on admssion- in remission -H&H 11.4/35.5-(last 07/04/22 Hgb 14.5) H&H have been normal since 08/2021 - Managed by -Dr. Hill hematology & PCP -continue ferrous sulfate -monitor H&H, bleeding, guaiac as needed -typed and crossed blood type: O positive. 4. Paroxysmal atrial fibrillation, w/SSS, post ablation, pace maker placement (05/2021), on chronic anticoagulation, chronic, history of bilateral PE (2021) present on admission-stable -Continue Eliquis 5 mg b.i.d. (Failed Xeralto) -Managed by Cardiology -continue flecainide, losartan, metoprolol -Pt on Telemed -Echo 02/28/2019 Dr. Nathan left EF 60+/-5%-moderate mitral valve regurgitation, tricuspid regurgitation. 5. Essential hypertension, chronic, present on admission-stable -continue losartan, flecainide, metoprolol -Admitting B/P 125/46 6. Hyperlipidemia, chronic, present on admission -Continue Lipitor 7. Peripheral neuropathy, chronic, present on admission -Continue tramadol 8. Restless leg syndrome, chronic, present on admission -Continue pramipexole 9. Hypothyroidism, acquired, chronic, present on admission -continue levothyroxine 10. GERD, chronic, present on admission -continue omeprazole 11. Insomnia, chronic, Present on admission -continue Trazadone 12. Obesity, moderate, acute on chronic, present on admission -dietary consult ordered regarding nutritional education and information for dietary, lifestyle, exercise, and weight changes. -the patient is at much higher risk for medical and surgical complications due to obesity as it relates to chronic illnesses:, and acute illness and injuries. The patient's obesity increases the difficulty and complexity of medical and/or surgical interventions, management and increases the chances of poor outcome such as morbidity and mortality as well as impaired wound healing. -as evidence by BMI of 38.7 -consult for dietary placed 13. Asymptomatic bacteuria - urine cultures with sensitive E. coli, but no current symptoms represents asymptomatic bacteuria. Code status:Full Surrogate decision maker: Spouse Keshav Reeder COVID PCR:Negative COVID vaccination:? Pfizer x2, + booster DVT/VTE prophylaxis: Patient on Eliquis, SCD to right leg only Disposition: Inpatient, probable SNF. Time Spent With Patient Critical Care time: I spent a total of [] minutes of critical care time on this patient's care today; this time is exclusive of procedural time. Quality VTE Deep Vein Thrombosis/Pulmonary Embolism Present on Admission: No
[2022-08-14] MEDS: PRAMIPEXOLE 0.125 MG TABLET PO (20:10)
--- NOTE | 2022-08-14 23:37 | PC.NURSE ---
Patient is alert and oriented. Breath sounds CTA with oxygen via NC at 2L/min with sat of 100% so decreased to 1L/min and will continue to wean to RA as able. HRR. Denies nausea. BT present and is passing flatus. Using external female catheter; urine is clear, kitty. Is needing assistance to reposition q2h as has limited movement in left arm related to clavicle fx. Gait not assessed at this time. Wound vac to posterior left thigh is intact and set to 125mmHg. Allevyn dressings to left deltoid and right elbow are CDI. Has edema bilateral LE left > right. Dressing to blistered area (per patient) placed at wound clinic and is CDI. Complained earlier of pain in left shoulder, leg and back and was medicated with oxycodone and denies pain at present time. Fall risk score is high and bed alarm is activated.
[2022-08-15] VITALS (13 sets, daily range): BP systolic 101–153; BP diastolic 53–82; PULSE 63–75; RESP 12–19; TEMP 36.1–36.8; O2SAT 67–97
[2022-08-15] MEDS: diphenhydrAMINE 25 MG TABLET 50 MG PO (00:39)
[2022-08-15] MEDS: OXYCODONE IR 5 MG TABLET 10 MG PO ×3 (04:58→23:26)
[2022-08-15 06:13] LABS: Add Manual Diff / Slide Review NO; Basophils Absolute Auto 100 /uL (0-100); Basophils Percent Auto 1.3 % (0-2); Eosinophils Absolute Auto 300 /uL (0-450); Eosinophils Percent Auto 3.3 % (2-4); Hematocrit 31.5 % (36-46); Hemoglobin 10.1 g/dL (12.0-16.0); Lymphocytes Absolute Auto 600 /uL (1100-4500); Lymphocytes Percent Auto 8.4 % (25-40); Mean Corpuscular HGB Conc 32.2 % (30-36); Mean Corpuscular Hemoglobin 27.2 PG (26-34); Mean Corpuscular Volume 84.5 fL (80-100); Monocytes Absolute Auto 1000 /uL (0-900); Monocytes Percent Auto 12.4 % (3-14); Neutrophils Absolute Auto 5700 /uL (1500-7000); Neutrophils Percent Auto 74.6 % (50-75); Platelet Count 187 X10^3/uL (150-400); Red Blood Cell Count 3.73 X10^6/uL (4.0-5.2); Red Cell Distribution Width 16.7 % (11.6-14.8); White Blood Cell Count 7.7 X10^3/uL (4.5-11.0)
[2022-08-15 06:22] LABS: BUN Creatinine Ratio 22.2 (6-22); Blood Urea Nitrogen 22 mg/dL (7-17); Carbon Dioxide 27 mmol/L (22-32); Chloride 98 mmol/L (98-107); Estimated Glomerular Filt Rate 60 mL/min (>60); Glucose 95 mg/dL (80-110); HEMOLYSIS < 15 (0-50); Magnesium 1.7 mg/dL (1.6-2.3); Potassium 4.2 mmol/L (3.4-5.1); Sodium 130 mmol/L (137-145)
[2022-08-15] MEDS: APIXABAN 5 MG TABLET PO ×2 (08:57→20:49)
[2022-08-15] MEDS: MYCOPHENOLATE MOFETIL 500 MG TABLET 1000 MG PO ×2 (08:57→20:49)
[2022-08-15] MEDS: FLECAINIDE 100 MG TABLET PO ×2 (08:57→20:49)
[2022-08-15] MEDS: SODIUM CHLORIDE 0.9% FLUSH 10 ML IV ×2 (08:58→20:49)
[2022-08-15] MEDS: FERROUS SULFATE 325 MG TABLET PO (08:59)
[2022-08-15] MEDS: METOPROLOL ER 50 MG TABLET 100 MG PO (09:00)
--- NOTE | 2022-08-15 12:56 | DIET.CONS ---
Dietary Consultation Note Admission Date: 08/12/2022 17:40 Assessment: 72y F admitted after GLF in Wound Care resulting in non-operative fractures in left lower leg and right upper arm referred to nutrition for BMI 38 and chronic cellulitis. RD met with pt and spouse at bedside, pt feeling a bit depressed about injury, having wound vac from previous cellulitis and not doing the things she loves because of it- quilting especially. Pt states she was sick with viral pneumonia after Pily and was mostly eating canned soups because of N/V/D and coughing. Pt states she and spouse discussed getting back into meal planning a few days before her injury and hospitalization. Pt and spouse counselled on wound healing nutrition MNT including protein source with each meal and snack, Vits A and C as well as zinc and sources of each. Encouraged pt to start taking MVI if not doing so already. Pt states they will start having chicken or fish with dinner. Collaborated on easy meal prep to reduce burden of clean up including rotisserie chicken, salmon patties and easy to grab protein such as cheese stick, yogurt, pb. Pt to d/c to SNF for further strengthening before going home. Ht: 165.1 cm Wt: 105.5 kg BMI: 38.7 Last BM: 08/12/22 (08/12/22 18:27) MNA: 12 Thanh Score: 16 Diet: 08/12/22 Dinner General (Regular) Diet Diet Modifications: Nutrition Percent Meal Consumed 100% 08/14/22 18:00 Percent Meal Consumed 100% 08/14/22 13:00 Percent Meal Consumed 100% 08/14/22 08:43 Labs: RBC 3.73 X10^6/uL (4.0-5.2) L 08/15/22 06:03 Hgb 10.1 g/dL (12.0-16.0) L 08/15/22 06:03 Hct 31.5 % (36-46) L 08/15/22 06:03 Creatinine 0.99 mg/dL (0.52-1.04) 08/15/22 06:03 NT-Pro-B Natriuret Pep 1310 pg/mL (<125) H 08/12/22 12:50 Electronically Signed by: Julienne Kearney 08/15/22 12:[address] [address]
--- NOTE | 2022-08-15 13:26 | P.PN_ITS ---
Subjective Subjective Date Patient Seen: 08/15/22 Interval history: 72 F admitted with non-operative femur and clavicular fx. Pain is there but generally controlled. Otherwise denies complaints. No chest pain, shortnes of breath, nausea, vomiting. She has no dysuria or urinary frequency. BP soft, losartan held and metoprolol reduced to 50 mg BID from 100. Exam Vital Signs (past 8 hours): - 08/15/22 08:00 08/15/22 09:00 08/15/22 09:00 Temperature 97.0 F L Pulse Rate 67 67 Respiratory Rate 18 Blood Pressure 101/61 101/61 Pulse Oximetry 94 94 Oxygen Delivery Method Room Air Oxygen Flow Rate 2 0 08/15/22 12:00 Temperature 97.0 F L Pulse Rate 69 Respiratory Rate 16 Blood Pressure 126/58 L Pulse Oximetry 92 Oxygen Delivery Method Oxygen Flow Rate 0 Fraction of Inspired Oxygen 28 SaO2/FiO2 Ratio 332 Oxygen Delivery Method Room Air Oxygen Flow Rate 0 Narrative Exam Narrative: GEN:.? Patient is a kimmy elderly female, well-nourished, in no distress at this time. CV: Bradycardic regular rhythm with no murmur noted, No JVD. PULM: CTA b/l GI: S NT ND NEURO: Oriented AOx3, neuro is grossly intact, sensation and motor is normal all 4 extremities moving, cranial nerves II through XII are intact? PSYCH: Normal mood and affect, thought process, decision-making are appropriate for age. SKIN: Intact except for skin tear with ecchymosis of the left posterior bicep, abrasion to right elbow, patient has noted wound vac in place w/dressing to posterior left thigh, without signs of infection- Objective Labs 08/15/22 06:03 08/15/22 06:03 Labs: Laboratory Results - last 24 hr 08/15/22 08/15/22 06:03 06:03 WBC 7.7 RBC 3.73 L Hgb 10.1 L Hct 31.5 L MCV 84.5 MCH 27.2 MCHC 32.2 RDW 16.7 H Plt Count 187 Neut % (Auto) 74.6 Lymph % (Auto) 8.4 L Crawford % (Auto) 12.4 Eos % (Auto) 3.3 Baso % (Auto) 1.3 Neut # (Auto) 5700 Lymph # (Auto) 600 L Crawford # (Auto) 1000 H Eos # (Auto) 300 Baso # (Auto) 100 Sodium 130 L Potassium 4.2 Chloride 98 Carbon Dioxide 27 BUN 22 H Creatinine 0.99 Estimated GFR 60 BUN/Creatinine Ratio 22.2 H Glucose 95 Calcium 8.0 L Magnesium 1.7 PFSH Medical History Anemia Asthma Atrial fibrillation by electrocardiography Bullous pemphigoid (~10/2019) Chickenpox Cholelithiasis Chronic kidney disease (CKD) stage G2/A1, mildly decreased glomerular filtration rate (GFR) between 60-89 mL/min/1.73 square meter and albuminuria creatinine ratio less than 30 mg/g (09/06/17) Chronic obstructive pulmonary disease (10/19/16) Class 1 obesity (09/05/16) Diverticulosis of colon (~12/2020) Eczema Environmental allergies (09/05/16) Fatigue due to sleep pattern disturbance Hepatitis B core antibody positive History of torn meniscus of right knee Hyperlipidemia (01/25/11) Hypertension (01/25/11) Hypothyroidism (~2007) Insomnia due to medical condition Measles Morbid obesity with body mass index (BMI) of 40.0 to 49.9 Osteoarthritis (01/25/11) Pacemaker (~05/2021) Pedal edema Persistent atrial fibrillation Pulmonary nodules/lesions, multiple Recurrent sinusitis (~1999) Seasonal allergies Sigmoid diverticulosis Snoring Surgical History Anesthesia History of foot surgery History of hip replacement (~2010) History of hip replacement (~2012) History of radiofrequency ablation procedure for cardiac arrhythmia (~07/2019) Polyp of nasal sinus Status post hysterectomy with oophorectomy (~1996) Family History Father Heart disease Hypertension Mother Heart disease Stroke Hypertension Diabetes mellitus Dementia Grandfather Cancer Grandmother No problems noted. Grandfather No problems noted. Grandmother No problems noted. Brother Pacemaker Social History marital status: household members: spouse occupational status: previously employed Smoking Status: Former smoker alcohol intake: current substance use type: does not use Assessment & Plan Assessment & Plan narrative: Mishel Reeder is a 72-year-old female?former smoker with history of chronic iron def anemia, paroxysmal atrial fibrillation on eliquis-post ablation with recent pacemaker placement 05/03/2021, SSS, COPD, CKD stage G2/A1, hyperlipidemia, hypothyroidism, peripheral neuropathy,? 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 Her pain was difficult to control, requiring IV medications and was changed to inpatient given expected stay beyond two midnights. Probable need for SNF pending PT/OT 1. Ground level fall resulting in pathological left proximal femur fracture and left distal clavicle fracture, left biceps skin tear, acute, present on admission -Left lower extremity CT demonstrates mildly displaced left proximal femur periprosthetic fracture. X-ray of left shoulder demonstrates distal clavicle fracture. -Dr. Lynch was consulted by ED who felt fractures were nonoperable, authorized touch toe weight-bearing max 20 lb and repeat imaging in 2 weeks. -Appreciate ortho consultation. -pain management, ice, lidocaine, ice, meds -PT/OT consult -likely will require SNF or rehab placement on discharge 2. Bullous pemphigoid, acute on chronic, present on admission with hx of cellulitis -patient is unable to tolerate diuretics as they cause pemphigoid/ bollous flare/outbreaks. -managed by Wound clinic ongoing-puraply vaccum applied 07/29/2022, in place- completed doxycycline treatment. -since 02/21- Dr. Fink I&D on 07/29/2022 for abscess cellulitis of the left thigh, and full-thickness bulbous sigmoid left ankle wound check on 07/31/2022. -continue CellCept-attempts are being made to change to/ trial patient on D upixent. -Ordered blood cultures 3.. Anemia, Iron deficiency, Chronic, present on admssion- in remission -H&H 11.4/35.5-(last 07/04/22 Hgb 14.5) H&H have been normal since 08/2021 - Managed by -Dr. Hill hematology & PCP -continue ferrous sulfate -monitor H&H, bleeding, guaiac as needed -typed and crossed blood type: O positive. 4. Paroxysmal atrial fibrillation, w/SSS, post ablation, pace maker placement (05/2021), on chronic anticoagulation, chronic, history of bilateral PE (2021) present on admission-stable -Continue Eliquis 5 mg b.i.d. (Failed Xeralto) -Managed by Cardiology -continue flecainide -Pt on tele -Echo 02/28/2019 Dr. Nathan left EF 60+/-5%-moderate mitral valve regurgitatio n, tricuspid regurgitation. 5. Essential hypertension, chronic, present on admission-stable -continue holding losartan given low normal BP, metoprolol reduced from 100 to 50 mg BID. 6. Hyperlipidemia, chronic, present on admission -Continue Lipitor 7. Peripheral neuropathy, chronic, present on admission -Continue tramadol 8. Restless leg syndrome, chronic, present on admission -Continue pramipexole 9. Hypothyroidism, acquired, chronic, present on admission -continue levothyroxine 10. GERD, chronic, present on admission -continue omeprazole 11. Insomnia, chronic, Present on admission -continue Trazadone 12. Obesity, moderate, acute on chronic, present on admission -dietary consult ordered regarding nutritional education and information for dietary, lifestyle, exercise, and weight changes. -the patient is at much higher risk for medical and surgical complications due to obesity as it relates to chronic illnesses:, and acute illness and injuries. The patient's obesity increases the difficulty and complexity of medical and/or surgical interventions, management and increases the chances of poor outcome such as morbidity and mortality as well as impaired wound healing. -as evidence by BMI of 38.7 -consult for dietary placed 13. Asymptomatic bacteuria - urine cultures with sensitive E. coli, but no current symptoms represents asymptomatic bacteuria. Code status:Full Surrogate decision maker: Spouse Keshav ENNIS PCR:Negative COVID vaccination:? Pfizer x2, + booster DVT/VTE prophylaxis: Patient on Eliquis, SCD to right leg only Disposition: Inpatient, probable SNF. Time Spent With Patient Critical Care time: I spent a total of [] minutes of critical care time on this patient's care t roberto; this time is exclusive of procedural time. Quality VTE Deep Vein Thrombosis/Pulmonary Embolism Present on Admission: No
--- NOTE | 2022-08-15 13:31 | OT.IP.EVAL ---
Current Diagnoses Cutaneous abscess of left lower limb (08/12/22) Periprosthetic fracture around other internal prosthetic joint, initial encounter (08/12/22) Laceration without foreign body of left upper arm, initial encounter (08/12/22) Fracture of unspecified part of unspecified clavicle, initial encounter for closed fracture (08/12/22) Unspecified fall, initial encounter (08/12/22) Presence of unspecified artificial hip joint (08/12/22) Past Medical History (Last Reviewed 08/13/22 @ 12:10 by Brandie Jackson PA-C) Anemia Asthma Atrial fibrillation by electrocardiography Bullous pemphigoid (~10/2019) Chickenpox Cholelithiasis Chronic kidney disease (CKD) stage G2/A1, mildly decreased glomerular filtration rate (GFR) between 60-89 mL/min/1.73 square meter and albuminuria creatinine ratio less than 30 mg/g (09/06/17) Chronic obstructive pulmonary disease (10/19/16) Class 1 obesity (09/05/16) Diverticulosis of colon (~12/2020) Eczema Environmental allergies (09/05/16) Fatigue due to sleep pattern disturbance Hepatitis B core antibody positive History of torn meniscus of right knee Hyperlipidemia (01/25/11) Hypertension (01/25/11) Hypothyroidism (~2007) Insomnia due to medical condition Measles Morbid obesity with body mass index (BMI) of 40.0 to 49.9 Osteoarthritis (01/25/11) Pacemaker (~05/2021) Pedal edema Persistent atrial fibrillation Pulmonary nodules/lesions, multiple Recurrent sinusitis (~1999) Seasonal allergies Sigmoid diverticulosis Snoring Surgical History (Last Reviewed 08/13/22 @ 12:10 by Brandie Jackson PA-C) Anesthesia History of foot surgery History of hip replacement (~2010) History of hip replacement (~2012) History of radiofrequency ablation procedure for cardiac arrhythmia (~07/2019) Polyp of nasal sinus Status post hysterectomy with oophorectomy (~1996) Occupational Therapy Inpatient Evaluation/Re-Eval M1 PT/OT-IP Prior Functional Status Start: 08/13/22 16:42 Freq: NEEDED Status: Active Protocol: Document 08/15/22 13:31 [facility] (Rec: 08/15/22 14:58 [facility] [id number]) Medical Review Prior Functional Status Medical History Reviewed Yes Communication able to make needs known Mobility and Gait pt stated that she is modified independent with all mobilities and ambulation without AD indoors but occasionally uses a 4WW; uses a SPC for outdoor mobility Activities of Daily Living and IADL's Pt states able to do all his ADL's on her own and assist with IADL needs. Social History Household Members spouse Living Arrangements House Number of Floors (Floors) Two Floors Number of Stairs To Enter/Railing? pt stays on main level of the house ramp to enter Home Environment High Toilet,Walk in Shower, Built-In Shower Seat,Ramp Home Equipment Four Wheel Walker,Straight Cane,Hand Held Shower,Grab Bars Near Toilet,Grab Bars In Shower M2 OT-IP Current Condition Start: 08/15/22 14:33 Freq: Status: Active Protocol: Document 08/15/22 13:31 [facility] (Rec: 08/15/22 14:58 [facility] [id number]) Occupational Therapy Current Condition Current Condition Evaluation Date 08/15/22 Treatment Diagnosis Left proximal femur fx, left distal clavical fx Diagnosis Onset Date 08/12/22 Post Operative Precautions Other Precautions 20lb weight bearing for LLE, LUE WBAT , sling for comfort Weight Bearing Status Weight Bearing Status Partial Weight Bearing Allowed Weight Bearing Amount (enter % 20lb weight bearing for LLE, or #) (%) WBAT for LUE M3 OT- IP Subjective and Pain Start: 08/15/22 14:33 Freq: Status: Active Protocol: Document 08/15/22 13:31 [facility] (Rec: 08/15/22 14:58 [facility] [id number]) OT- Subjective Occupational Therapy Visit Type Type Initial Evaluation Visit Start Time 13:31 Visit Stop Time 14:10 Total Visit Minutes 39 Occupational Therapy Visit Comments Patient Comments Pt agreed to get up. PT present during session due to pt needing extensive assist for mobility needs. Patient/Caregiver Goals TO get better OT Pain Assessment Pain When Pain Assessed During Mobility Pain Present Pain Present Pain Reported M4 OT- IP ADL's Start: 08/15/22 14:33 Freq: Status: Active Protocol: Document 08/15/22 13:31 [facility] (Rec: 08/15/22 14:58 [facility] [id number]) OT [id number] Comments OT Self-Feeding Comments NOt at meal time. OT ADL-Grooming General Evaluation Grooming Ability Standby Assistance Comments OT Grooming Comments Pt able to wash her face after set-up of wash cloth and brush her hair. OT ADL-Oral Care Comments Oral Care Comments Not performed. OT ADL-Dressing General Eval Lower Body Dressing Ability Total Assistance Comments OT Dressing Comments Assist for socks and brief management needs. OT ADL-Toileting General Evaluation Toileting Ability Total Assistance Comments OT Toileting Comments Pt needing use of Purewick and total assist for hygiene and brief change. OT ADL-Bathing Comments OT Bathing Comments Sponge bath more appropriate at this time. M5 OT- IP IADL's Start: 08/15/22 14:33 Freq: Status: Active Protocol: Document 08/15/22 13:31 [facility] (Rec: 08/15/22 14:58 [facility] [id number]) OT-Instrumental Activities of Daily Living Deficits IADL Deficits Identified Deficits Home Safety Awareness Awareness of Need for Assistance at Home Good Awareness Ability to Problem Solve Emergency Able to Problem Solve Situations Medication Management Medication Management Comments Pt states does her meds prior. Money Management Money Management Comments Pt pays her bills prior. Meal Preparation Meal Preparation Caregiver Provides Assist Pattern Hand Pattern Hand Caregiver Provides Assist M6 OT- IP Functional Cognition Start: 08/15/22 14:33 Freq: Status: Active Protocol: Document 08/15/22 13:31 [facility] (Rec: 08/15/22 14:58 [facility] [id number]) Cognitive Factors Limiting Selfcare Function Cognitive Ability Level of Alertness Alert Attention Span Ability Capable of Focused Attention, Capable of Sustained Attention Ability to Follow Commands Able to Follow One Step Commands Cognitive Comments Cognitive Assessment Comments Pt able to follow commands for ADL and mobility needs at this time. Pt has difficulty to follow 20lb weight bearing to LLE and best at this time to follow LLE NWB. OT- Vision and Hearing OT- Hearing Assessment OT- Hearing Assessment WFL OT- Vision Assessment Visual Acuity Glasses All The Time Occular Pursuits WFL M7 OT- IP Mobility and Balance Start: 08/15/22 14:33 Freq: Status: Active Protocol: Document 08/15/22 13:31 [facility] (Rec: 08/15/22 14:58 [facility] [id number]) OT- Bed Mobility Assessment Supine to Sit Supine to Sit Assist Maximum Assistance,2 Person Assistance,Head of Bed Elevated Sit to Supine Sit to Supine Assist Total Assistance,2 Person Assistance Scooting Scooting to Edge of Bed Maximum Assistance,1 Person Assistance OT-Transfer Assessment Sit to and From Stand Sit to and from Stand Maximum Assistance,2 Person Assistance Comments Mobility Comments MAXA X 2 and use of green pad to assist to roll in addition of using the tilt function of the hospital bed. MAX AX 2 with HOB up assist to get her legs to the edge of the bed and trunk with use of green pad for assist. Pt able to use her left hand to push on the bed as prior considering use of hemiwalker to assist to stand and used FWW. MAX AX 2 to stand to FWW and leaning heavily on the right and able to stay upright enough so nursing aid able to change out the bed sheets. OT- Balance Assessment Sitting Balance and Reactions Static Sitting Balance Ability Good Dynamic Sitting Balance Ability Fair Standing Balance and Reactions Static Standing Balance Ability Poor Dynamic Standing Balance Ability Poor M8 OT- IP Objective Assessments Start: 08/15/22 14:33 Freq: Status: Active Protocol: Document 08/15/22 13:31 [facility] (Rec: 08/15/22 14:58 [facility] [id number]) OT Gross Range of Motion Upper Extremity Range of Motion Assessment Left Impaired OT Strength Upper Extremity Strength Assessment Left Impaired OT-Muscle Tone Assessment Muscle Tone WNL Yes M9 OT- IP Assessment and Plan Start: 08/15/22 14:33 Freq: Status: Active Protocol: Document 08/15/22 13:31 [facility] (Rec: 08/15/22 14:58 [facility] [id number]) OT Summary Assessment and Plan Potential Rehabilitation Potential Good Analytic Complexity at Evaluation Moderate Summary OT Impairments Pain,Range of Motion,Strength, Balance,Functional Mobility, Grooming,Dressing,Toileting, Bathing,Toilet Transfers, Shower Transfers,Activity Tolerance Progress Towards Goals Slow Progress due to Pain,Slow Progress due to Medical Issues,Slow Progress due to Activity Tolerance Assessment Summary Pt MOD complexity and main barriers are LLE now 20lb weight bearing, now use of wound vac, and extensive two person assist for ADl and for mobility needs. Pt will benefit from skilled rehab. Goals Grooming Goal Standby Assistance Dressing Goal Moderate Assistance Toileting Goal Moderate Assistance Bathing Goal Moderate Assistance Toilet Transfer Goal Moderate Assistance Shower Transfer Goal Moderate Assistance Days to Meet Goals 20 Frequency of Treatment Frequency Of Treatment Once a Day Treatment Plan OT Treatment Plan ADL Training,Functional Mobility,Patient/Family Education,Discharge Planning Other Treatment Recommendations and Next MAXA x2 with sliding board to Treatment Focus drop arm commode. Discharge Recommendations OT Discharge Recommendations SNF Rehab Transportation Needs at Discharge Wheelchair/Cabulance
--- NOTE | 2022-08-15 13:55 | CM.DPC ---
DCP SNF Planning: Per MD, pt likely stable for d/c when SNF secured and pt having some confusion and urinary retention today. CARIDAD confirmed that [facility] can accept and they are working closely with Madeleine at [facility] on pt's current wound vac needs at SNF and wound care appointments and therefore cannot accept pt until tomorrow 08/16/22. Per [facility], pt registered for a clinical trial for a new medication and pt needs to understand that if the approval for trial comes through while pt at SNF, she will have to wait until after SNF to start the clinical trial. CARIDAD left msg for spouse regarding the clinical trial. PASRR previously done in anticipation of SNF tomorrow. Plan: SW to follow for plan of [facility] tomorrow and likely may need updated COVID swab prior to d/c and confirmation regarding clinical trial. Mellissa Palma, ROD DRAWER
--- NOTE | 2022-08-15 14:05 | PT.IPTN ---
Current Diagnoses Cutaneous abscess of left lower limb (08/12/22) Periprosthetic fracture around other internal prosthetic joint, initial encounter (08/12/22) Laceration without foreign body of left upper arm, initial encounter (08/12/22) Fracture of unspecified part of unspecified clavicle, initial encounter for closed fracture (08/12/22) Unspecified fall, initial encounter (08/12/22) Presence of unspecified artificial hip joint (08/12/22) Physical Therapy Treatment Note M2 PT-IP Current Condition Start: 08/13/22 16:42 Freq: NEEDED Status: Active Protocol: Document 08/13/22 13:20 AB (Rec: 08/13/22 17:01 AB [id number]) Physical Therapy Current Condition Current Condition Evaluation Date 08/13/22 Treatment Diagnosis GLF; L femur fx; L clavicular fx; difficulty in walking Onset Date 08/12/22 M3 PT-IP Subjective Start: 08/13/22 16:42 Freq: NEEDED Status: Active Protocol: Document 08/15/22 14:05 AW (Rec: 08/15/22 14:30 AW [id number]) Subjective Physical Therapy Visit Type Type Treatment Note Visit Start Time 13:33 Visit Stop Time 14:05 Total Visit Minutes 32 Notes Co-tx with OT due to complex nature of pt's mobility needs Physical Therapy Visit Comments Patient Comments Pt is willing to participate with therapies. Patient Goals Get stronger and ultimately go home. Therapy Pain Assessment Pain When Pain Assessed During Mobility Pain Present Pain Present Denied Pain Location Left Shoulder Scale Used pain scale not stated Pain Management Techniques Modification of Treatment,Re- positioning,Timing of Activity with Medications M4 PT-IP Mobility and Gait Start: 08/13/22 16:42 Freq: NEEDED Status: Active Protocol: Document 08/15/22 14:05 AW (Rec: 08/15/22 14:30 AW [id number]) PT-Bed Mobility Assessment Rolling Type of Rolling Bilateral Level of Assist Maximal Assistance,2 Person Assistance Supine to Sit Supine to Sit Maximum Assistance,2 Person Assistance,Head of Bed Elevated,Bedrails Sit to Supine Sit to Supine Maximum Assistance,2 Person Assistance,Head of Bed Elevated,Bedrails Scooting Scooting to Edge of Bed Maximum Assistance Scooting Up and Down in Bed Maximum Assistance PT-Transfer Assessment Sit to and From Stand Sit to and from Stand Maximum Assistance,2 Person Assistance,Use of Upper Extremities Equipment Transfer Assistive Device Gait Belt,Front Wheeled Walker Orthotic/Prosthetic Devices or Brace: No Comments Mobility Comments Pt was lying in bed as PT and OT arrived. BP 135/86 HR 80 SpO2 96% on room air. She needed a briefs change. With heavy use of bed tilt feature and max A x 2, pt rolled side to side. She was also able to minimally bridge her hips to allow for better placement of the brief. She then completed supine to sit max A x 2 with HOB elevated. She was able to sit EOB with good trunk control and was observed to push with both arms to scoot forward. Therapists considered deena-walker but pt was noted to be pushing off the bed with her LUE. Therapists decided FWW was more appropriate. With FWW and max A x 2, pt leaned forward enough for AIRCRAFT DESIGN ENGINEER to replace soiled sheets beneath her. First attempt at sit to stand pt was not able to fully extend her right knee. After brief seated rest, pt stood max A x 2 with FWW for ~10 seconds to allow for full linens change. She was able to fully extend her right knee and hip. PT was on left side with foot slid under pt's left foot. Pt was certainly putting more than 20# weight through LLE. Pt sat EOB and needed max to total assist to scoot toward HOB in sitting. Sit to supine was completed max to total A x 2. Once in supine, pt was able to bridge her hips slightly for better positioning. She also pushed with both legs as PT and OT assisted to boost her toward HOB. Pt was left with OT for further assessment. Gait Assessment Comments Gait Comments Unable to maintain <20# WB LLE . Unable to ambulate at this time PT-Balance Assessment Sitting Balance and Reactions Static Sitting Balance Ability Good Dynamic Sitting Balance Ability Fair Standing Balance and Reactions Static Standing Balance Ability Poor Dynamic Standing Balance Ability Poor Device Used FWW M5 PT-IP Objective Assessments Start: 08/13/22 16:42 Freq: NEEDED Status: Active Protocol: Document 08/13/22 13:20 AB (Rec: 08/13/22 17:01 AB [id number]) Orientation Orientation/Cognition Level of Alertness Alert Orientation Name,Place,Situation Language Function Ability No Deficits Noted Safety Awareness Decreased Safety Awareness Memory Description No Deficits Noted Gross Range of Motion Lower Extremity ROM Assessment Within Functional Limits Strength Lower Extremity Strength Assessment Bilaterally Impaired Comments Strength Comments RLE: 3+/5 LLE: 3-/5 Muscle Tone Muscle Tone WNL Yes M6 PT-IP Treatment Start: 08/13/22 16:42 Freq: NEEDED Status: Active Protocol: Document 08/15/22 14:05 AW (Rec: 08/15/22 14:30 AW [id number]) Physical Therapy Treatment Education Education Provided Weight Bearing Status,Safety Other Treatments Other Treatment Performed Pt completed ankle pumps and LAQ BLE x 10 in sitting M7 PT-IP Assessment and Plan Start: 08/13/22 16:42 Freq: NEEDED Status: Active Protocol: Document 08/15/22 14:05 AW (Rec: 08/15/22 14:30 AW [id number]) PT Summary Assessment and Plan Summary Progress Towards Goals Slow Progress due to Pain Assessment Summary Mishel continues to require max assist x 2 for bed mobility and sit to stand. She has difficulty maintaining her LLE weightbearing restriction. However, she was able to participate more with bed mobility by bridging her hips and pushing with both legs for repositioning. She was able to push off the bed with her left arm without increase in pain for sit to stand. Pt will require SNF rehab to improve strength and mobility independence. Goals Bed Mobility Goal Moderate Assistance Transfer Goal Moderate Assistance,Front Wheeled Walker Gait Goal Moderate Assistance,Front Wheel Walker Gait Distance 15 Other Goals improve bed mobility, transfers and ambulation CGA 25 ft Days to Meet Goals 10 Frequency of Treatment Frequency Of Treatment Once a Day Treatment Plan Physical Therapy Treatment Plan Bed Mobility Training,Transfer Training,Gait Training, Therapeutic Exercise,Balance Retraining,Discharge Planning, Hot or Cold Pack,Neuromuscular Re-ed,Coordination Retraining ,Manual Therapy Precautions Brace Sling for comfort LUE. In consultation with OT, sling was not used as pt is using her LUE functionally and not complaining of pain at rest. Weight Bearing Status Allowed Weight Bearing Amount (enter % LLE: TTWB 20 # max or #) (%) LUE: WBAT Recommendations To Nursing Amount of Assist Needed Mechanical Lift Discharge Recommendations PT Discharge Recommendations SNF Rehab Transportation Needs at Discharge Wheelchair/Cabulance
[2022-08-15] MEDS: MAGNESIUM CHLORIDE 64 MG TABLET 128 MG PO (15:01)
[2022-08-15] MEDS: METOPROLOL ER 50 MG TABLET PO (20:49)
[2022-08-15] MEDS: PRAMIPEXOLE 0.125 MG TABLET PO (20:49)
[2022-08-15] MEDS: LIDOCAINE PATCH 1 EACH ADH..PATCH TOP (23:26)
--- NOTE | 2022-08-15 23:55 | PC.NURSE ---
Patient is alert and oriented. Breath sounds diminished throughout and patient taking shallow respirations; RA sat 96%. Encouraged I.S. use but patient has difficulty getting to 500. Reports she wears a CPAP at night so instructed to have spouse bring in a.m. so she can use at facility on discharge. HRR. Denied nausea. BT present and is passing flatus; last BM was 2/10. Has external catheter in place but has also been incontinent at times. Is being repositioned q2h as unable to move by herself. Gait not assessed and PT is recommending use of mechanical lift for nursing transfers. Wound vac intact to posterior left thigh and set to 125mmHg. Allevyn dressings to left deltoid and right elbow are CDI. Edema in bilateral LE left > right. SCD's have not been ordered. Initially denied pain but now complaining of 7/10 pain in left shoulder, leg and back; screamed when being repositioned. Medicated with oxycodone, Lidoderm patch applied and ice pack provided. Fall risk assessment is high and bed alarm is activated.
[2022-08-16 04:00] VITALS: BP 160/75; PULSE 72; RESP 18; TEMP 36.4; O2SAT 93
[2022-08-16] MEDS: ACETAMINOPHEN 325 MG TABLET 650 MG PO ×2 (04:07→11:52)
[2022-08-16] MEDS: LEVOTHYROXINE 75 MCG TABLET PO (05:31)
--- NOTE | 2022-08-16 07:47 | P.DS_ITS ---
History of Present Illness History of Present Illness Date Patient Seen: 08/16/22 Time Patient Seen: 07:48 Chief complaint: fell down in [facility] on thinners hurt LT side Narrative: Mishel Reeder is a 72-year-old female?former smoker with history of chronic iron def anemia, paroxysmal atrial fibrillation on eliquis-post ablation with recent pacemaker placement 05/03/2021, SSS, Hx of Domenic PE (2021),COPD, CKD stage G2/A1, hyperlipidemia, hypothyroidism, peripheral neuropathy,? morbid obesity, YONI/Cpap, insomnia, oa, ambulates with cane/walker, chronic cellulitis left thigh since 02/21- Dr. 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 ?Presented to the ED today following a ground level fall impacting and c/o left hip, left sh oulder pain. On admit patient's pain to left hip and left shoulder, and left lateral chest wall is well-controlled 12/10, with medication from ED. On admit patient denies chest pain, shortness in breath, headache, changes in vision, difficulty swallowing, speech impairment, new or changed weakness, numbness, tingling, denies LOC, fever, body aches, chills, cough, recent exposure to illness, abdominal pain, nausea, vomiting, urinary incontinence/retention, dysuria, frequency, urgency, hematuria, bowel changes, constipation, incontinence, melena, rashes, recent changes to medication. Patient initially presented to the ED moderately hypotensive BP 87/49, 83/47, patient received fluid bolus and pain control resulting in improvement on admit temp 98.2?, 124/46, 70, 18, 98% on room air. H&H 11.4/35.5, (last 07/04/22 Hgb 14.5) the remainder of patient's labs are unremarkable, troponin negative, with the exception of BNP 1310, total protein 6.1, albumin 3.3. EKG ventricle paced at a rate of [address] or T-wave changes. GCS 15, COVID is negative. Chest x-ray mildly predominant interstitium, borderline cardiomegaly, possible basal atelectasis. Left lower extremity CT demonstrates mildly displaced left proximal femur periprosthetic fracture. X-ray of left shoulder demonstrates distal clavicle fracture. Left knee x-ray trace joint effusion. Head CT is negative for any intracranial acute process. C-spine is negative. Patient typed and crossed blood type: O positive. Patient admitted for observation ground level fall resulting in pathological left proximal femur fracture and left distal clavicle fracture, left biceps skin tear, on Eliquis. Discharge Providers Provider Date of admission: 08/12/22 17:40 Discharge Date: 08/16/22 Primary care physician: Shira Corbin DO Consults: 08/12/22 18:41 Consult to Occupational Therapy Evaluate & Treat Comment: Physician Instructions: Evaluate and treat Consult to Physical Therapy Evaluate & Treat Comment: Physician Instructions: Evaluate and Treat 08/12/22 21:13 Consult to Dietitian, Adult Urgent Comment: Reason For Exam: chronic cellulitis, BMI 38.7 08/12/22 21:15 Consult to CULINARY ARTS TEACHER - Intern Product Marketing Manager Routine Comment: likely SNF or Rehab on d/c 08/12/22 21:16 Consult to Inpatient Wound Care Nurse Routine Comment: Reason for consultation: lt bicep, rt elbow Has provider been notified: No Consult to Orthopedic Surgery Routine Comment: Consulting Provider: Noni Lynch Reason for consultation: LT prox periprost femur fx. distal claviclefx Has provider been notified: Yes Discharge provider: Eulalio Dubose DO Summary Hospital Course Discharge Diagnosis: 1. Ground level fall resulting in pathological left proximal femur fracture and left distal clavicle fracture, left biceps skin tear, acute, present on admission -Left lower extremity CT demonstrates mildly displaced left proximal femur pe riprosthetic fracture.? X-ray of left shoulder demonstrates distal clavicle fracture. -Dr. Lynch was consulted by ED who felt fractures were nonoperable, authorized touch toe weight-bearing max 20 lb and repeat imaging in 2 weeks. -Appreciate ortho consultation. -pain management, ice, lidocaine, ice, meds -PT/OT consulted and rec SNF 2.? Bullous pemphigoid, acute on chronic, present on admission with hx of cellulitis -patient is unable to tolerate diuretics as they cause pemphigoid/ bollous fla re/outbreaks. -managed by Wound clinic ongoing-puraply vaccum applied 07/29/2022,? in place- completed doxycycline treatment. -since 02/21- Dr. Fink I&D on 07/29/2022 for abscess cellulitis of the left thigh, and full-thickness bulbous sigmoid left ankle wound check on 07/31/2022. -continue CellCept-attempts are being made to change to/ trial patient on Dupixent. -Ordered blood cultures ? 3.. Anemia, Iron deficiency, Chronic, present on admssion- in remission -H&H 11.4/35.5-(last 07/04/22 Hgb 14.5) H&H have been normal since 08/2021 - Managed by -Dr. Hill hematology & PCP -continue ferrous sulfate -monitor H&H, bleeding, guaiac as needed -typed and crossed blood type:? O positive. 4. Paroxysmal atrial fibrillation, w/SSS, post ablation, pace maker placement (05/2021), on chronic anticoagulation, chronic, history of bilateral PE (2021) present on admission-stable -Continue Eliquis 5 mg b.i.d. (Failed Xeralto) -Managed by Cardiology -continue flecainide -Pt on tele -Echo 02/28/2019 Dr. Nathan left EF 60+/-5%-moderate mitral valve regurgitation, tricuspid regurgitation. 5. Essential hypertension, chronic, present on admission-stable -continue home losartan and metoprolol 6. Hyperlipidemia, chronic, present on admission -Continue Lipitor 7. Peripheral neuropathy, chronic, present on admission -Continue tramadol 8. Restless leg syndrome, chronic, present on admission -Continue pramipexole 9. Hypothyroidism, acquired, chronic, present on admission -continue levothyroxine 10. GERD, chronic, present on admission -continue omeprazole 11. Insomnia, chronic, Present on admission -continue Trazadone 12. Obesity, moderate, acute on chronic, present on admission -dietary consult ordered regarding nutritional education and information for dietary, lifestyle, exercise, and weight changes. -the patient is at much higher risk for medical and surgical complications due to obesity as it relates to chronic illnesses:, and acute illness and injuries.? The patient's obesity increases the difficulty and complexity of medical and/or surgical interventions, management and increases the chances of poor outcome such as morbidity and mortality as well as impaired wound healing. -as evidence by BMI of 38.7 -consult for dietary placed 13. Asymptomatic bacteuria ?- urine cultures with sensitive E. coli, but no current symptoms represents asymptomatic bacteuria. Hospital Course: Mishel Reeder is a 72-year-old female?former smoker with history of chronic iron def anemia, paroxysmal atrial fibrillation on eliquis-post ablation with recent pacemaker placement 05/03/2021, SSS, COPD, CKD stage G2/A1, hyperlipidemia, hypothyroidism, peripheral neuropathy,? 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 Her pain was difficult to control, requiring IV medications. She was eventually able to tolerate po pain meds alone and discharged to SNF for ongoing rehab. All of her home meds were continued on discharge. Time Spent with Patient Time spent: Greater than 30 minutes Exam Vital Signs (past 8 hours): - 08/16/22 04:00 08/16/22 04:00 Temperature 97.6 F Pulse Rate 72 Respiratory Rate 18 Blood Pressure 160/75 H Pulse Oximetry 93 93 Oxygen Delivery Method Room Air Oxygen Flow Rate 0 0 Fraction of Inspired Oxygen 28 SaO2/FiO2 Ratio 332 Oxygen Delivery Method Room Air Oxygen Flow Rate 0 Narrative Exam Narrative: GEN:.? Patient is a kimmy elderly female, well-nourished, in no distress at this time. CV: Bradycardic regular rhythm with no murmur noted, No JVD. PULM: CTA b/l GI: S NT ND NEURO: Oriented AOx3, neuro is grossly intact, sensation and motor is normal all 4 extremities moving, cranial nerves II through XII are intact? PSYCH: Normal mood and affect, thought process, decision-making are appropriate for age. SKIN: Intact except for skin tear with ecchymosis of the left posterior bicep, abrasion to right elbow, patient has noted wound vac in place w/dressing to posterior left thigh, without signs of infection- Objective Labs 08/15/22 06:03 08/15/22 06:03 [facility] Medical History Anemia Asthma Atrial fibrillation by electrocardiography Bullous pemphigoid (~10/2019) Chickenpox Cholelithiasis Chronic kidney disease (CKD) stage G2/A1, mildly decreased glomerular filtration rate (GFR) between 60-89 mL/min/1.73 square meter and albuminuria creatinine ratio less than 30 mg/g (09/06/17) Chronic obstructive pulmonary disease (10/19/16) Class 1 obesity (09/05/16) Diverticulosis of colon (~12/2020) Eczema Environmental allergies (09/05/16) Fatigue due to sleep pattern disturbance Hepatitis B core antibody positive History of torn meniscus of right knee Hyperlipidemia (01/25/11) Hypertension (01/25/11) Hypothyroidism (~2007) Insomnia due to medical condition Measles Morbid obesity with body mass index (BMI) of 40.0 to 49.9 Osteoarthritis (01/25/11) Pacemaker (~05/2021) Pedal edema Persistent atrial fibrillation Pulmonary nodules/lesions, multiple Recurrent sinusitis (~1999) Seasonal allergies Sigmoid diverticulosis Snoring Surgical History Anesthesia History of foot surgery History of hip replacement (~2010) History of hip replacement (~2012) History of radiofrequency ablation procedure for cardiac arrhythmia (~07/2019) Polyp of nasal sinus Status post hysterectomy with oophorectomy (~1996) Family History Father Heart disease Hypertension Mother Heart disease Stroke Hypertension Diabetes mellitus Dementia Grandfather Cancer Grandmother No problems noted. Grandfather No problems noted. Grandmother No problems noted. Brother Pacemaker Social History marital status: household members: spouse occupational status: previously employed Smoking Status: Former smoker alcohol intake: current substance use type: does not use Discharge Plan Discharge Plan Patient Disposition: SNF Discharge orders & Medications Prescriptions: New oxycodone 10 mg tablet 10 mg PO Q6HR PRN (Reason: Pain, Severe (7-10)) 30 Days Qty: 30 0RF Continued cyanocobalamin (vitamin B-12) 1,000 MCG tablet extended release 1,000 mcg PO DAILY Qty: 0 flecainide 50 mg tablet 100 mg PO BID Eliquis 5 mg tablet 5 mg PO BID Qty: 120 2RF pramipexole 0.125 mg tablet 0.125 mg PO BEDTIME Qty: 90 1RF atorvastatin 10 mg tablet See Rx Instructions .ROUTE .COMPLEX Qty: 90 3RF Dose Instruction: TAKE ONE TABLET BY MOUTH ONE TIME DAILY AT BEDTIME Rx Instructions: TAKE ONE TABLET BY MOUTH ONE TIME DAILY AT BEDTIME trazodone 50 mg tablet See Rx Instructions PO BEDTIME PRN (Reason: insomnia) Qty: 30 2RF Rx Instructions: .5-3 tabs by mouth before bed as needed for insomnia. (can increase dose by .5 tab up to max 3 tabs to find dose that helps you sleep but doesn't leave you groggy in the morning) levothyroxine 75 mcg tablet See Rx Instructions .ROUTE .COMPLEX Qty: 30 0RF Dose Instruction: TAKE ONE TABLET BY MOUTH ONE TIME DAILY FOR 6 DAYS PER WEEK Rx Instructions: TAKE ONE TABLET BY MOUTH ONE TIME DAILY FOR 6 DAYS PER WEEK dont take it on Monday potassium chloride 10 mEq tablet,ER particles/crystals 10 meq PO BEDTIME Label Comments: TAKE ONE TABLET BY MOUTH ONE TIME DAILY. metoprolol succinate 50 mg tablet extended release 24 hr 100 mg PO BID albuterol sulfate [Ventolin HFA] 90 mcg/actuation HFA aerosol inhaler 2 - 4 puff inhalation Q4H PRN (Reason: Shortness Of Breath) Qty: 8.5 0RF ferrous sulfate 325 mg (65 mg iron) tablet 325 mg PO Q OTHER DAY mycophenolate mofetil 500 mg tablet 1,000 mg PO BID Label Comments: TAKE TWO TABLETS BY MOUTH TWICE DAILY omeprazole magnesium [Prilosec OTC] 20 mg Tablet,Delayed Release (Dr/Ec) 20 mg PO DAILY tramadol 50 mg tablet 50 mg PO TID PRN (Reason: Pain (Scale Score 7-10)) losartan 50 mg tablet 50 mg PO DAILY Follow up/Referrals: Noni Lynch MD [Physician] - (Please call to make an appointment in 2 weeks for repeat x-rays: Left hip and left clavicle fractures) Shira Corbin DO [Primary Care Provider] - 2 Weeks Diet/Activity/Treatments Other treatments: -non operative treatment for the left distal clavicle fracture, and left hip periprosthetic fracture as the implant appears to be well fixed distally, fracture along greater trochanter. -20 lb weight-bearing on left lower extremity -weight-bearing as tolerated on left upper extremity -sling left upper extremity for comfort -Eliquis baseline should be sufficient for DVT prophylaxis -continue with current wound care treatment regimen -follow-up with Orthopedics in 2-3 weeks for repeat x-rays: AP pelvis and left lateral hip; two views left clavicle Skin/Wound/Dressing Care Report to your healthcare provider any signs of infection, such as:: chills, fever, night sweats, unusual drainage and unusual redness Visit Report/Discharge Packet Stand Alone Forms: Patient Portal/API, Stroke Signs & Symptoms Discharge Data Primary Care Provider: Shira Corbin VTE Deep Vein Thrombosis/Pulmonary Embolism Present on Admission: No
[2022-08-16 08:00] VITALS: BP 143/57; PULSE 67; RESP 16; TEMP 35.9; O2SAT 95
[2022-08-16 08:24] VITALS: BP 143/57; PULSE 63
[2022-08-16] MEDS: MYCOPHENOLATE MOFETIL 500 MG TABLET 1000 MG PO (08:24)
[2022-08-16] MEDS: OXYCODONE IR 5 MG TABLET 10 MG PO (08:24)
[2022-08-16] MEDS: METOPROLOL ER 50 MG TABLET PO (08:24)
[2022-08-16] MEDS: FLECAINIDE 100 MG TABLET PO (08:24)
[2022-08-16] MEDS: FERROUS SULFATE 325 MG TABLET PO (08:25)
[2022-08-16] MEDS: APIXABAN 5 MG TABLET PO (08:25)
[2022-08-16] MEDS: SODIUM CHLORIDE 0.9% FLUSH 10 ML IV (08:27)
[2022-08-16 08:54] VITALS: BP 114/49; PULSE 66
[2022-08-16 09:00] VITALS: O2SAT 95
[2022-08-16 11:16] LABS: COVID19 -Nasal RAPID Negative (Negative)
[2022-08-16] MEDS: TRAMADOL 50 MG TABLET PO (11:52)
--- NOTE | 2022-08-16 12:08 | PC.NURSE ---
Redressed L lateral thigh wound vac dressing w/ suction at 125 hg/mm. Premedicated pt with 50 mg toradol and 650 mg tylenol for transfer. Called report to edenes with [facility] who received report. D/c prescriptions, paperwork and d/c instructions handed over to facility p/c transportee. [facility] w/ [facility] @ 1200.
== END 2022-08-16 12:00 | DRG 560 ==
LOC: ED 14:32 → AC 18:10
PROVIDERS: Student in an Organized Health Care Education/Training Program; Admitting Provider Internal Medicine; Emergency Provider Emergency Medicine; PCP Family Medicine; Referring Provider Emergency Medicine; Visit Provider Internal Medicine
DX: M97.02XA Periprosthetic fracture around internal prosthetic left hip joint, initial encounter (principal); L03.116 Cellulitis of left lower limb; L12.0 Bullous pemphigoid; L97.822 Non-pressure chronic ulcer of other part of left lower leg with fat layer exposed; S42.032A Displaced fracture of lateral end of left clavicle, initial encounter for closed fracture; I48.0 Paroxysmal atrial fibrillation; E66.9 Obesity, unspecified; J44.9 Chronic obstructive pulmonary disease, unspecified; E78.5 Hyperlipidemia, unspecified; E03.9 Hypothyroidism, unspecified; Z20.822 Contact with and (suspected) exposure to COVID-19; K21.9 Gastro-esophageal reflux disease without esophagitis; D50.9 Iron deficiency anemia, unspecified; G62.9 Polyneuropathy, unspecified; I49.5 Sick sinus syndrome; G47.33 Obstructive sleep apnea (adult) (pediatric); G47.00 Insomnia, unspecified; S41.112A Laceration without foreign body of left upper arm, initial encounter; W18.30XA Fall on same level, unspecified, initial encounter; G25.81 Restless legs syndrome; Z68.38 Body mass index [BMI] 38.0-38.9, adult; Z79.01 Long term (current) use of anticoagulants; Z79.899 Other long term (current) drug therapy; Z95.0 Presence of cardiac pacemaker; Z86.711 Personal history of pulmonary embolism; Z96.653 Presence of artificial knee joint, bilateral; Z87.891 Personal history of nicotine dependence; Z88.8 Allergy status to other drugs, medicaments and biological substances; Z82.3 Family history of stroke; Z83.3 Family history of diabetes mellitus; Z80.9 Family history of malignant neoplasm, unspecified; Z82.49 Family history of ischemic heart disease and other diseases of the circulatory system; Z84.89 Family history of other specified conditions; S81.802A Unspecified open wound, left lower leg, initial encounter; S71.102A Unspecified open wound, left thigh, initial encounter; T81.89XA Other complications of procedures, not elsewhere classified, initial encounter; R60.0 Localized edema; L53.9 Erythematous condition, unspecified; R06.9 Unspecified abnormalities of breathing
CPT/HCPCS: 11042; 15271; 36415; 70450; 71045; 72125; 73030; 73502; 73560; 73700; 80048; 80053; 82550; 82553; 83690; 83735; 83880; 84484; 85025; 85610; 85730; 86850; 86900; 86901; 87040; 87070; 87077; 87086; 87185; 87186; 87205; 87635; 90471; 93005; 94760; 96374; 96375; 96376; 97163; 97166; 97530; 97605; 99214; 99285; C9803; 90715; J1170; J2270; J2405; J3475; Q4196

== ENCOUNTER → 2022-08-19 09:31 | Outpatient (CLI) | payer MEDICARE, SELFPAY ==
[2022-08-12 18:27] VITALS: BMI 38.7
== END ==
PROVIDERS: PCP Family Medicine; Referring Provider Family Medicine; Visit Provider Nurse Practitioner Family
DX: L12.0 Bullous pemphigoid (principal); L97.822 Non-pressure chronic ulcer of other part of left lower leg with fat layer exposed; L97.122 Non-pressure chronic ulcer of left thigh with fat layer exposed; S81.802A Unspecified open wound, left lower leg, initial encounter; S41.102A Unspecified open wound of left upper arm, initial encounter; Z79.01 Long term (current) use of anticoagulants; R60.0 Localized edema; L08.9 Local infection of the skin and subcutaneous tissue, unspecified
CPT/HCPCS: 11042; 11045; 97597; 97605; 99213

== ENCOUNTER → 2022-08-23 11:18 | Outpatient (CLI) | payer MEDICARE, SELFPAY ==
[2022-08-12 18:27] VITALS: BMI 38.7
== END ==
PROVIDERS: PCP Family Medicine; Referring Provider Family Medicine; Visit Provider Surgery
DX: L12.0 Bullous pemphigoid (principal); S81.802A Unspecified open wound, left lower leg, initial encounter; S41.102A Unspecified open wound of left upper arm, initial encounter; R60.0 Localized edema; L53.9 Erythematous condition, unspecified
CPT/HCPCS: 99213

== ENCOUNTER → 2022-08-26 09:03 | Outpatient (CLI) | payer MEDICARE, SELFPAY ==
[2022-08-12 18:27] VITALS: BMI 38.7
== END ==
PROVIDERS: PCP Family Medicine; Referring Provider Family Medicine; Visit Provider Nurse Practitioner Family
DX: L12.0 Bullous pemphigoid (principal); L97.822 Non-pressure chronic ulcer of other part of left lower leg with fat layer exposed; S81.802A Unspecified open wound, left lower leg, initial encounter; T81.89XA Other complications of procedures, not elsewhere classified, initial encounter; S40.812D Abrasion of left upper arm, subsequent encounter
CPT/HCPCS: 11042; 97597; 97598

== ENCOUNTER → 2022-08-30 10:28 | Outpatient (CLI) | payer MEDICARE, SELFPAY ==
[2022-08-12 18:27] VITALS: BMI 38.7
== END ==
PROVIDERS: PCP Family Medicine; Referring Provider Emergency Medicine; Visit Provider Surgery
DX: S71.102A Unspecified open wound, left thigh, initial encounter (principal); L12.0 Bullous pemphigoid; R60.0 Localized edema; L53.9 Erythematous condition, unspecified
CPT/HCPCS: 97605

== ENCOUNTER → 2022-09-02 10:33 | Outpatient (CLI) | payer MEDICARE, SELFPAY ==
[2022-08-12 18:27] VITALS: BMI 38.7
== END ==
PROVIDERS: PCP Family Medicine; Referring Provider Emergency Medicine; Visit Provider Surgery
DX: L12.0 Bullous pemphigoid (principal); L97.822 Non-pressure chronic ulcer of other part of left lower leg with fat layer exposed; S81.802A Unspecified open wound, left lower leg, initial encounter; R60.9 Edema, unspecified; Z79.01 Long term (current) use of anticoagulants; I26.99 Other pulmonary embolism without acute cor pulmonale
CPT/HCPCS: 97597

== ENCOUNTER → 2022-09-06 09:44 | Outpatient (CLI) | payer MEDICARE, SELFPAY ==
[2022-08-12 18:27] VITALS: BMI 38.7
== END ==
PROVIDERS: PCP Family Medicine; Referring Provider Family Medicine; Visit Provider Surgery
DX: L12.0 Bullous pemphigoid (principal); R60.0 Localized edema; T81.89XA Other complications of procedures, not elsewhere classified, initial encounter; S71.102A Unspecified open wound, left thigh, initial encounter
CPT/HCPCS: 99213

== ENCOUNTER → 2022-09-09 09:55 | Outpatient (CLI) | payer MEDICARE, SELFPAY ==
[2022-08-12 18:27] VITALS: BMI 38.7
== END ==
PROVIDERS: PCP Family Medicine; Referring Provider Emergency Medicine; Visit Provider Nurse Practitioner Family
DX: S71.102A Unspecified open wound, left thigh, initial encounter (principal); L12.0 Bullous pemphigoid; I50.9 Heart failure, unspecified; R60.0 Localized edema
CPT/HCPCS: 99213

== ENCOUNTER 2022-09-14 12:10 | Inpatient (IN) | payer MEDICARE, SELFPAY ==
[2022-08-12 18:27] VITALS: BMI 38.7
[2022-09-14] VITALS (28 sets, daily range): BP systolic 100–183; BP diastolic 47–90; PULSE 60–69; RESP 16–20; TEMP 36.1–36.9; O2SAT 95–99; BMI 36.6
[2022-09-14 13:08] LABS: Add Manual Diff / Slide Review NO; Basophils Absolute Auto 100 /uL (0-100); Basophils Percent Auto 0.7 % (0-2); Eosinophils Absolute Auto 100 /uL (0-450); Eosinophils Percent Auto 1.1 % (2-4); Hematocrit 46.2 % (36-46); Hemoglobin 15.3 g/dL (12.0-16.0); Lymphocytes Absolute Auto 1100 /uL (1100-4500); Lymphocytes Percent Auto 10.8 % (25-40); Mean Corpuscular HGB Conc 33.1 % (30-36); Mean Corpuscular Hemoglobin 26.9 PG (26-34); Mean Corpuscular Volume 81.3 fL (80-100); Monocytes Absolute Auto 1100 /uL (0-900); Monocytes Percent Auto 10.5 % (3-14); Neutrophils Absolute Auto 8100 /uL (1500-7000); Neutrophils Percent Auto 76.9 % (50-75); Platelet Count 294 X10^3/uL (150-400); Red Blood Cell Count 5.69 X10^6/uL (4.0-5.2); Red Cell Distribution Width 16.8 % (11.6-14.8); White Blood Cell Count 10.6 X10^3/uL (4.5-11.0)
--- NOTE | 2022-09-14 13:11 | ED.ABDPAIN ---
HPI - Abdominal Pain <Francy Gannon PA-C - Last Filed: 09/14/22 18:12> General Chief Complaint: Abdominal Pain Stated Complaint: Abd pain, hx gallstones Time Seen by Provider: 09/14/22 12:31 Source: EMS Mode of arrival: EMS History of Present Illness HPI narrative: 72-year-old [facility] with recent history of periprosthetic left femur fracture left distal clavicle fracture; chronic left thigh abscess, renal failure stage G2/A1, atrial fibrillation, pacemaker (2020), hypertension, diverticulosis and cholelithiasis presents to the ER from rehab facility with concern for left-sided abdominal pain. Patient states she is been having left-sided abdominal pain since last for the past 6 days she says it has been fairly constant but sometimes the pain is sharp. It is mostly up high but she also feels it down lower on her left side. She states that she has been having vomiting associated with this up to 10 times per day and has had little food and fluid intake. She feels that eating and drinking trigger her to vomit. She has recently been taking Zofran medication to help with her vomiting which has helped some. She endorses generalized weakness which she attributes to being in rehab and her injuries. She states they have gradually been decreasing her pain meds and now she is only taking 2 oxycodone at night before sleeping. She states she is never had abdominal pain like this before describes it as a 6/10 but ?I tolerate pain well?. Patient states her last bowel movement was on Monday, she typically has a bowel movement about every other day. Patient notes that she is in ?adult diapers?. She denies diarrhea, constipation, fevers, chills, flank pain, dysuria, urgency or frequency of urination or any other symptoms. Related Data Home Medications Medication Instructions Recorded Confirmed cyanocobalamin (vitamin B-12) 1,000 mcg PO DAILY ##0 08/05/16 09/14/22 1,000 mcg tablet,extended release omeprazole magnesium 20 mg 20 mg PO DAILY 06/07/18 09/14/22 tablet,delayed release (Prilosec OTC) losartan 50 mg tablet 50 mg PO DAILY 12/25/18 09/14/22 flecainide 50 mg tablet 100 mg PO BID 06/14/21 09/14/22 metoprolol succinate 50 mg 100 mg PO BID 07/07/21 09/14/22 tablet,extended release 24 hr potassium chloride 10 mEq 10 meq PO BEDTIME 07/07/21 09/14/22 tablet,extended release(part/cryst) ferrous sulfate 325 mg (65 mg 325 mg PO Q OTHER DAY 08/18/21 09/14/22 iron) tablet mycophenolate mofetil 500 mg tablet 1,000 mg PO BID 02/06/22 09/14/22 acetaminophen 325 mg tablet 650 mg PO Q6H PRN Pain (Scale 09/14/22 09/14/22 Score 1-3) atorvastatin 10 mg tablet 10 mg PO BEDTIME 09/14/22 09/14/22 benzonatate 100 mg capsule 100 mg PO Q6H PRN Cough 09/14/22 09/14/22 calcium carbonate 200 mg calcium 1 tab PO DAILY 09/14/22 09/14/22 (500 mg)-vitamin D3 400 unit tablet d-mannose 500 mg capsule 500 mg PO DAILY 09/14/22 09/14/22 guaifenesin 600 mg tablet, 600 mg PO Q12H PRN Congestion 09/14/22 09/14/22 extended release 12 hr (Mucinex) levothyroxine 75 mcg tablet 75 mcg PO DAILY 09/14/22 09/14/22 melatonin 3 mg tablet 3 mg PO BEDTIME PRN Insomnia 09/14/22 09/14/22 ondansetron HCl 4 mg/5 mL oral 4 mg PO Q4H PRN Nausea 09/14/22 09/14/22 solution Previous Rx's Medication Instructions Recorded albuterol sulfate 90 mcg/actuation 2 - 4 puff inhalation Q4H PRN 04/08/20 aerosol inhaler (Ventolin HFA) Shortness Of Breath #8.5 grams apixaban 5 mg tablet (Eliquis) 5 mg PO BID #120 tabs 12/29/21 pramipexole 0.125 mg tablet 0.125 mg PO BEDTIME #90 tabs 05/13/22 oxycodone 10 mg tablet 10 mg PO Q6HR PRN Pain, Severe 08/16/22 (7-10) 30 days #30 tabs tramadol 50 mg tablet 50 mg PO TID PRN Pain (Scale Score 08/16/22 7-10) 30 days #30 tabs Allergies Allergy/AdvReac Type Severity Reaction Status Date / Time furosemide [From Lasix] Allergy Verified 09/14/22 19:46 spironolactone Allergy Verified 09/14/22 19:47 diuretics AdvReac Rash Uncoded 09/14/22 19:47 Review of Systems <Francy Gannon PA-C - Last Filed: 09/14/22 18:12> Review of Systems Narrative: Unremarkable except as noted in the HPI Patient History <Francy Gannon PA-C - Last Filed: 09/14/22 18:12> Medical History Anemia Asthma Atrial fibrillation by electrocardiography Bullous pemphigoid (~10/2019) Chickenpox Cholelithiasis Chronic kidney disease (CKD) stage G2/A1, mildly decreased glomerular filtration rate (GFR) between 60-89 mL/min/1.73 square meter and albuminuria creatinine ratio less than 30 mg/g (09/06/17) Chronic obstructive pulmonary disease (10/19/16) Class 1 obesity (09/05/16) Diverticulosis of colon (~12/2020) Eczema Environmental allergies (09/05/16) Fatigue due to sleep pattern disturbance Hepatitis B core antibody positive History of torn meniscus of right knee Hyperlipidemia (01/25/11) Hypertension (01/25/11) Hypothyroidism (~2007) Insomnia due to medical condition Measles Morbid obesity with body mass index (BMI) of 40.0 to 49.9 Osteoarthritis (01/25/11) Pacemaker (~05/2021) Pedal edema Persistent atrial fibrillation Pulmonary nodules/lesions, multiple Recurrent sinusitis (~1999) Seasonal allergies Sigmoid diverticulosis Snoring Surgical History Anesthesia History of foot surgery History of hip replacement (~2010) History of hip replacement (~2012) History of radiofrequency ablation procedure for cardiac arrhythmia (~07/2019) Polyp of nasal sinus Status post hysterectomy with oophorectomy (~1996) Family History Father Heart disease Hypertension Mother Heart disease Stroke Hypertension Diabetes mellitus Dementia Grandfather Cancer Grandmother No problems noted. Grandfather No problems noted. Grandmother No problems noted. Brother Pacemaker Social History marital status: household members: spouse occupational status: previously employed Smoking Status: Former smoker alcohol intake: current substance use type: does not use Smoking Status: Former smoker tobacco type: cigarettes alcohol intake frequency: a few times a month Substance Use Type: does not use Exam <Francy Gannon PA-C - Last Filed: 09/14/22 18:12> Narrative Exam Narrative: GENERAL: 72 year old patient appears stated age. Well-developed patient, in mild distress, patient is alert and oriented with no deficits noted. HEAD: Atraumatic. Normocephalic. EYES: Pupils equal round and reactive. Extraocular motions intact. No scleral icterus. No injection or drainage. ENT: Nose without bleeding, purulent drainage. Airway patent. NECK: Trachea midline. Non tender CARDIOVASCULAR: Regular rate and rhythm without murmurs, gallops, or rubs. RESPIRATORY: Clear to auscultation. Breath sounds equal bilaterally. No wheezes, rales, or rhonchi. GASTROINTESTINAL: Abdomen soft, patient has tenderness over the left upper quadrant and left lower quadrant that is mild, otherwise non-tender, nondistended. EXTREMITIES: No edema or joint tenderness. BACK: Nontender without deformity or crepitance. No flank tenderness. NEURO: AOx3. SKIN: No rash or erythema of visible areas Initial Vital Signs Initial Vital Signs: Vital Signs Temperature 98.4 F 09/14/22 12:11 Pulse Rate 66 09/14/22 12:11 Respiratory Rate 18 09/14/22 12:11 Blood Pressure 152/90 H 09/14/22 12:11 Pulse Oximetry 97 09/14/22 12:11 Oxygen Delivery Method Room Air 09/14/22 12:11 <Sheryl Javier DO - Last Filed: 09/14/22 20:05> Initial Vital Signs Initial Vital Signs: Vital Signs Temperature 98.4 F 09/14/22 12:11 Pulse Rate 66 09/14/22 12:11 Respiratory Rate 18 09/14/22 12:11 Blood Pressure 152/90 H 09/14/22 12:11 Pulse Oximetry 97 09/14/22 12:11 Oxygen Delivery Method Room Air 09/14/22 12:11 Course <Francy Gannon PA-C - Last Filed: 09/14/22 18:12> Course Course Narrative: Consulted Dr. Javier upon receipt of labs with patient's sodium noted to be at 114. Ordered COVID test as well as CT abdomen pelvis, 500mL fluid bolus NS. Dr. Javier also orders additional urine labs for further evaluation of her hyponatremia. Patient is placed on seizure precautions. 13:45 CT resulted and imaging suggestive of proximal sigmoid colon diverticulosis and possible early diverticulitis. This could potentially explain the patient's left-sided abdominal pain. 15:[address] Dubose gave report on this patient Dr. Dubose agrees to admit as inpatient. 15:38 Decision to Admit Date: 09/14/22 Decision to Admit time: 13:45 Orders Ordered: ED Orders 09/14/22 13:00 Complete Blood Count AUTO DIFF Stat Comprehensive Metabolic Panel Stat Lipase Stat Prothrombin Time INR Stat 09/14/22 13:05 Magnesium Urgent 09/14/22 13:45 Creatinine Urine Random Stat Sodium Urine Random Stat UA Complete [Urinalysis and Microscopic] Stat 09/14/22 13:49 CT abdomen pelvis w con Stat 09/14/22 14:10 Covid-19 + FLU A/B + RSV - PCR Stat 09/14/22 14:19 EKG-12 Lead Stat 09/14/22 17:25 BMP [Basic Metabolic Panel] Q4H 09/14/22 21:00 BMP [Basic Metabolic Panel] Q4H 09/15/22 01:00 BMP [Basic Metabolic Panel] Q4H 09/15/22 05:00 BMP [Basic Metabolic Panel] Q4H CBC Auto Diff [Complete Blood Count AUTO DIFF] DAILY 09/15/22 09:00 BMP [Basic Metabolic Panel] Q4H 09/15/22 13:00 BMP [Basic Metabolic Panel] Q4H 09/15/22 17:00 BMP [Basic Metabolic Panel] Q4H 09/15/22 21:00 BMP [Basic Metabolic Panel] Q4H 09/16/22 01:00 BMP [Basic Metabolic Panel] Q4H 09/16/22 05:00 BMP [Basic Metabolic Panel] Q4H CBC Auto Diff [Complete Blood Count AUTO DIFF] DAILY 09/17/22 05:00 CBC Auto Diff [Complete Blood Count AUTO DIFF] DAILY Acetaminophen (Acetaminophen 325 Mg Tablet) 650 mg PO Q6H PRN PRN Reason: Fever/Mild Pain (1-3) Apixaban (Apixaban 5 Mg Tablet) 5 mg PO BID [facility] Atorvastatin Calcium (Atorvastatin 20 Mg Tablet) 10 mg PO BEDTIME [facility] Flecainide Acetate (Flecainide 100 Mg Tablet) 100 mg PO BID [facility] Sodium Chloride (Normal Saline 0.9%) 1,000 mls @ 100 mls/hr IV CONT [facility] Stop: 09/15/22 03:59 Piperacillin Sod/Tazobactam (Sod 3.375 gm/ Sodium Chloride) 100 mls @ 25 mls/hr IV Q8H [facility] Magnesium Sulfate (Magnesium Sulfate) 4 gm in 100 mls @ 25 mls/hr IV NOW ONE Stop: 09/14/22 20:43 Last Infusion: 09/14/22 18:23 Dose: 0 mls/hr Documented By: JANET Co-signed By: [facility] Admin: 09/14/22 17:22 Dose: 25 mls/hr Documented By: RB Co-signed By: JANET Levothyroxine Sodium (Levothyroxine 75 Mcg Tablet) 75 mcg PO 0600 [facility] Losartan Potassium (Losartan 50 Mg Tablet) 50 mg PO DAILY [facility] Melatonin (Melatonin 3 Mg Tablet) 6 mg PO BEDTIME PRN PRN Reason: Insomnia Metoclopramide HCl (Metoclopramide 10 Mg/2 Ml Inj) 10 mg IV Q6HR PRN PRN Reason: Nausea And Vomiting Metoprolol Succinate (Metoprolol Er 50 Mg Tablet) 100 mg PO BID [facility] Mycophenolate Mofetil (Mycophenolate Mofetil 500 Mg Tablet) 1,000 mg PO BID [facility] Naloxone HCl (Naloxone 0.4 Mg/Ml Vial) 0.2 mg IV Q2MIN PRN PRN Reason: Opiate Reversal Ondansetron HCl (Ondansetron 4 Mg Odt) 4 mg PO NOW PRN PRN Reason: Nausea And Vomiting Ondansetron HCl (Ondansetron 4 Mg/2 Ml Inj) 4 mg IV NOW PRN PRN Reason: Nausea And Vomiting Ondansetron HCl (Ondansetron 4 Mg/2 Ml Inj) 4 mg IV Q6HR [facility] Last Admin: 09/14/22 17:46 Dose: 4 mg Documented By: RB Oxycodone HCl (Oxycodone Ir 10 Mg Tablet) 10 mg PO Q6HR PRN PRN Reason: Pain, Severe (7-10) Pantoprazole Sodium (Pantoprazole Dr 20 Mg Tablet) 20 mg PO 0600 [facility] Polyethylene Glycol (Polyethylene Glycol 3350 17 Gm Powd.Pack) 17 gm PO DAILY PRN PRN Reason: Constipation Pramipexole Dihydrochloride (Pramipexole 0.125 Mg Tablet) 0.125 mg PO BEDTIME [facility] Sennosides (Sennosides 8.6 Mg Tablet) 8.6 mg PO BID PRN PRN Reason: Constipation Tramadol HCl (Tramadol 50 Mg Tablet) 50 mg PO TID PRN PRN Reason: Pain (Scale Score 7-10) Trazodone HCl (Trazodone 50 Mg Tablet) 50 mg PO BEDTIME PRN PRN Reason: insomnia Discontinued Medications Sodium Chloride (Normal Saline 0.9%) 1,000 mls @ 500 mls/hr IV BOLUS ONE Stop: 09/14/22 15:44 Last Infusion: 09/14/22 16:48 Dose: 0 mls/hr Documented By: Admin: 09/14/22 14:32 Dose: 500 mls/hr Documented By: RB Piperacillin Sod/Tazobactam (Sod 4.5 gm/ Sodium Chloride) 100 mls @ 200 mls/hr IV NOW ONE Stop: 09/14/22 15:49 Last Infusion: 09/14/22 17:46 Dose: 0 mls/hr Documented By: Admin: 09/14/22 17:05 Dose: 200 mls/hr Documented By: RB Sodium Chloride (Normal Saline 0.9%) 1,000 mls @ 500 mls/hr IV BOLUS ONE Stop: 09/14/22 17:47 Last Infusion: 09/14/22 18:24 Dose: 0 mls/hr Documented By: Admin: 09/14/22 17:15 Dose: 500 mls/hr Documented By: RB Vital Signs Vital signs: Vital Signs - 8 hr 09/14/22 12:11 09/14/22 12:49 09/14/22 13:00 Temperature 98.4 F Pulse Rate 66 63 61 Respiratory Rate 18 Blood Pressure 152/90 H Pulse Oximetry 97 97 97 Oxygen Delivery Method Room Air 09/14/22 13:15 09/14/22 13:30 09/14/22 13:45 Temperature Pulse Rate 62 61 Respiratory Rate Blood Pressure 156/80 H Pulse Oximetry 96 97 Oxygen Delivery Method 09/14/22 13:45 09/14/22 14:05 09/14/22 14:06 Temperature Pulse Rate 61 69 62 Respiratory Rate 20 Blood Pressure Pulse Oximetry 95 99 98 Oxygen Delivery Method 09/14/22 14:06 09/14/22 14:15 09/14/22 14:30 Temperature Pulse Rate 63 Respiratory Rate Blood Pressure 166/72 H 182/82 H Pulse Oximetry 98 Oxygen Delivery Method 09/14/22 14:30 09/14/22 14:45 09/14/22 14:55 Temperature Pulse Rate 63 61 Respiratory Rate Blood Pressure Pulse Oximetry 97 96 96 Oxygen Delivery Method 09/14/22 15:01 09/14/22 15:15 09/14/22 15:30 Temperature Pulse Rate 62 Respiratory Rate Blood Pressure 179/79 H 183/83 H Pulse Oximetry 97 Oxygen Delivery Method 09/14/22 15:30 09/14/22 15:45 Temperature Pulse Rate 63 65 Respiratory Rate Blood Pressure Pulse Oximetry 98 97 Oxygen Delivery Method <Sheryl Javier, DO - Last Filed: 09/14/22 20:05> Orders Ordered: ED Orders 09/14/22 13:00 Complete Blood Count AUTO DIFF Stat Comprehensive Metabolic Panel Stat Lipase Stat Prothrombin Time INR Stat 09/14/22 13:05 Magnesium Urgent 09/14/22 13:45 Creatinine Urine Random Stat Sodium Urine Random Stat UA Complete [Urinalysis and Microscopic] Stat 09/14/22 13:49 CT abdomen pelvis w con Stat 09/14/22 14:10 Covid-19 + FLU A/B + RSV - PCR Stat 09/14/22 14:19 EKG-12 Lead Stat 09/14/22 17:25 BMP [Basic Metabolic Panel] Q4H 09/14/22 21:00 BMP [Basic Metabolic Panel] Q4H 09/15/22 01:00 BMP [Basic Metabolic Panel] Q4H 09/15/22 05:00 BMP [Basic Metabolic Panel] Q4H CBC Auto Diff [Complete Blood Count AUTO DIFF] DAILY 09/15/22 09:00 BMP [Basic Metabolic Panel] Q4H 09/15/22 13:00 BMP [Basic Metabolic Panel] Q4H 09/15/22 17:00 BMP [Basic Metabolic Panel] Q4H 09/15/22 21:00 BMP [Basic Metabolic Panel] Q4H 09/16/22 01:00 BMP [Basic Metabolic Panel] Q4H 09/16/22 05:00 BMP [Basic Metabolic Panel] Q4H CBC Auto Diff [Complete Blood Count AUTO DIFF] DAILY 09/17/22 05:00 CBC Auto Diff [Complete Blood Count AUTO DIFF] DAILY Acetaminophen (Acetaminophen 325 Mg Tablet) 650 mg PO Q6H PRN PRN Reason: Fever/Mild Pain (1-3) Apixaban (Apixaban 5 Mg Tablet) 5 mg PO BID [facility] Atorvastatin Calcium (Atorvastatin 20 Mg Tablet) 10 mg PO BEDTIME [facility] Flecainide Acetate (Flecainide 100 Mg Tablet) 100 mg PO BID [facility] Sodium Chloride (Normal Saline 0.9%) 1,000 mls @ 100 mls/hr IV CONT [facility]IN[facility] Stop: 09/15/22 03:59 Piperacillin Sod/Tazobactam (Sod 3.375 gm/ Sodium Chloride) 100 mls @ 25 mls/hr IV Q8H [facility] Magnesium Sulfate (Magnesium Sulfate) 4 gm in 100 mls @ 25 mls/hr IV NOW ONE Stop: 09/14/22 20:43 Last Infusion: 09/14/22 18:23 Dose: 0 mls/hr Documented By: JANET Co-signed By: ADITYA Admin: 09/14/22 17:22 Dose: 25 mls/hr Documented By: CHRISTIANO Co-signed By: JANET Levothyroxine Sodium (Levothyroxine 75 Mcg Tablet) 75 mcg PO 0600 [facility] Losartan Potassium (Losartan 50 Mg Tablet) 50 mg PO DAILY [facility] Melatonin (Melatonin 3 Mg Tablet) 6 mg PO BEDTIME PRN PRN Reason: Insomnia Metoclopramide HCl (Metoclopramide 10 Mg/2 Ml Inj) 10 mg IV Q6HR PRN PRN Reason: Nausea And Vomiting Metoprolol Succinate (Metoprolol Er 50 Mg Tablet) 100 mg PO BID [facility] Mycophenolate Mofetil (Mycophenolate Mofetil 500 Mg Tablet) 1,000 mg PO BID [facility] Naloxone HCl (Naloxone 0.4 Mg/Ml Vial) 0.2 mg IV Q2MIN PRN PRN Reason: Opiate Reversal Ondansetron HCl (Ondansetron 4 Mg Odt) 4 mg PO NOW PRN PRN Reason: Nausea And Vomiting Ondansetron HCl (Ondansetron 4 Mg/2 Ml Inj) 4 mg IV NOW PRN PRN Reason: Nausea And Vomiting Ondansetron HCl (Ondansetron 4 Mg/2 Ml Inj) 4 mg IV Q6HR [facility] Last Admin: 09/14/22 17:46 Dose: 4 mg Documented By: RB Oxycodone HCl (Oxycodone Ir 10 Mg Tablet) 10 mg PO Q6HR PRN PRN Reason: Pain, Severe (7-10) Pantoprazole Sodium (Pantoprazole Dr 20 Mg Tablet) 20 mg PO 0600 [facility] Polyethylene Glycol (Polyethylene Glycol 3350 17 Gm Powd.Pack) 17 gm PO DAILY PRN PRN Reason: Constipation Pramipexole Dihydrochloride (Pramipexole 0.125 Mg Tablet) 0.125 mg PO BEDTIME [facility] Sennosides (Sennosides 8.6 Mg Tablet) 8.6 mg PO BID PRN PRN Reason: Constipation Tramadol HCl (Tramadol 50 Mg Tablet) 50 mg PO TID PRN PRN Reason: Pain (Scale Score 7-10) Trazodone HCl (Trazodone 50 Mg Tablet) 50 mg PO BEDTIME PRN PRN Reason: insomnia Discontinued Medications Sodium Chloride (Normal Saline 0.9%) 1,000 mls @ 500 mls/hr IV BOLUS ONE Stop: 09/14/22 15:44 Last Infusion: 09/14/22 16:48 Dose: 0 mls/hr Documented By: Admin: 09/14/22 14:32 Dose: 500 mls/hr Documented By: RB Piperacillin Sod/Tazobactam (Sod 4.5 gm/ Sodium Chloride) 100 mls @ 200 mls/hr IV NOW ONE Stop: 09/14/22 15:49 Last Infusion: 09/14/22 17:46 Dose: 0 mls/hr Documented By: Admin: 09/14/22 17:05 Dose: 200 mls/hr Documented By: RB Sodium Chloride (Normal Saline 0.9%) 1,000 mls @ 500 mls/hr IV BOLUS ONE Stop: 09/14/22 17:47 Last Infusion: 09/14/22 18:24 Dose: 0 mls/hr Documented By: Admin: 09/14/22 17:15 Dose: 500 mls/hr Documented By: RB Vital Signs Vital signs: Vital Signs - 8 hr 09/14/22 12:11 09/14/22 12:49 09/14/22 13:00 Temperature 98.4 F Pulse Rate 66 63 61 Respiratory Rate 18 Blood Pressure 152/90 H Pulse Oximetry 97 97 97 Oxygen Delivery Method Room Air 09/14/22 13:15 09/14/22 13:30 09/14/22 13:45 Temperature Pulse Rate 62 61 Respiratory Rate Blood Pressure 156/80 H Pulse Oximetry 96 97 Oxygen Delivery Method 09/14/22 13:45 09/14/22 14:05 09/14/22 14:06 Temperature Pulse Rate 61 69 62 Respiratory Rate 20 Blood Pressure Pulse Oximetry 95 99 98 Oxygen Delivery Method 09/14/22 14:06 09/14/22 14:15 09/14/22 14:30 Temperature Pulse Rate 63 Respiratory Rate Blood Pressure 166/72 H 182/82 H Pulse Oximetry 98 Oxygen Delivery Method 09/14/22 14:30 09/14/22 14:45 09/14/22 14:55 Temperature Pulse Rate 63 61 Respiratory Rate Blood Pressure Pulse Oximetry 97 96 96 Oxygen Delivery Method 09/14/22 15:01 09/14/22 15:15 09/14/22 15:30 Temperature Pulse Rate 62 Respiratory Rate Blood Pressure 179/79 H 183/83 H Pulse Oximetry 97 Oxygen Delivery Method 09/14/22 15:30 09/14/22 15:45 Temperature Pulse Rate 63 65 Respiratory Rate Blood Pressure Pulse Oximetry 98 97 Oxygen Delivery Method MDM - Abdominal Pain <Francy Gannon PA-C - Last Filed: 09/14/22 18:12> Differential Diagnosis Differential diagnosis: Likely abdominal pain, diverticulitis and other (Hyponatremia) Medical Records Attestation: I reviewed the patient's medical records. Lab Data Attestation: I reviewed the patient's lab results. 09/14/22 13:00 09/14/22 17:25 Labs: Lab Results 09/14/22 09/14/22 09/14/22 Range/Units 13:00 13:00 13:00 WBC 10.6 (4.5-11.0) X10^3/uL RBC 5.69 H (4.0-5.2) X10^6/uL Hgb 15.3 (12.0-16.0) g/dL Hct 46.2 H (36-46) % MCV 81.3 (80-100) fL MCH 26.9 (26-34) PG MCHC 33.1 (30-36) % RDW 16.8 H (11.6-14.8) % Plt Count 294 (150-400) X10^3/uL Neut % (Auto) 76.9 H (50-75) % Lymph % (Auto) 10.8 L (25-40) % Sutter % (Auto) 10.5 (3-14) % Eos % (Auto) 1.1 L (2-4) % Baso % (Auto) 0.7 (0-2) % Neut # (Auto) 8100 H (2650-6793) /uL Lymph # (Auto) 1100 (7739-3122) /uL Sutter # (Auto) 1100 H (0-900) /uL Eos # (Auto) 100 (0-450) /uL Baso # (Auto) 100 (0-100) /uL PT 19.0 H (10.1-12.7) SECONDS INR 1.6 H (0.9-1.3) Sodium 114 L* (137-145) mmol/L Potassium 3.9 (3.4-5.1) mmol/L Chloride 79 L (98-107) mmol/L Carbon Dioxide 23 (22-32) mmol/L BUN 20 H (7-17) mg/dL Creatinine 0.70 (0.52-1.04) mg/dL Estimated GFR > 60 (>60) mL/min BUN/Creatinine Ratio 28.6 H (6-22) Glucose 95 (80-110) mg/dL Calcium 8.8 (8.4-10.2) mg/dL Magnesium (1.6-2.3) mg/dL Total Bilirubin 1.2 (0.2-1.3) mg/dL AST 29 (14-36) IU/L ALT 25 (<35) IU/L Alkaline Phosphatase 241 H (38-126) U/L Total Protein 7.1 (6.3-8.2) g/dL Albumin 4.0 (3.5-5.0) g/dL Globulin 3.1 (1.7-4.1) g/dL Albumin/Globulin Ratio 1.3 (1.0-2.8) Lipase 53 (23-300) U/L SARS-CoV-2 (PCR) (Negative) Influenza A (RT-PCR) (NEGATIVE) Influenza B (RT-PCR) (NEGATIVE) RSV (PCR) (Negative) 09/14/22 09/14/22 Range/Units 13:05 14:10 WBC (4.5-11.0) X10^3/uL RBC (4.0-5.2) X10^6/uL Hgb (12.0-16.0) g/dL Hct (36-46) % MCV (80-100) fL MCH (26-34) PG MCHC (30-36) % RDW (11.6-14.8) % Plt Count (150-400) X10^3/uL Neut % (Auto) (50-75) % Lymph % (Auto) (25-40) % Sutter % (Auto) (3-14) % Eos % (Auto) (2-4) % Baso % (Auto) (0-2) % Neut # (Auto) (9131-6960) /uL Lymph # (Auto) (6644-9374) /uL Sutter # (Auto) (0-900) /uL Eos # (Auto) (0-450) /uL Baso # (Auto) (0-100) /uL PT (10.1-12.7) SECONDS INR (0.9-1.3) Sodium (137-145) mmol/L Potassium (3.4-5.1) mmol/L Chloride (98-107) mmol/L Carbon Dioxide (22-32) mmol/L BUN (7-17) mg/dL Creatinine (0.52-1.04) mg/dL Estimated GFR (>60) mL/min BUN/Creatinine Ratio (6-22) Glucose (80-110) mg/dL Calcium (8.4-10.2) mg/dL Magnesium 1.3 L (1.6-2.3) mg/dL Total Bilirubin (0.2-1.3) mg/dL AST (14-36) IU/L ALT (<35) IU/L Alkaline Phosphatase (38-126) U/L Total Protein (6.3-8.2) g/dL Albumin (3.5-5.0) g/dL Globulin (1.7-4.1) g/dL Albumin/Globulin Ratio (1.0-2.8) Lipase (23-300) U/L SARS-CoV-2 (PCR) Negative (Negative) Influenza A (RT-PCR) Flu a negative (NEGATIVE) Influenza B (RT-PCR) Flu b negative (NEGATIVE) RSV (PCR) Negative (Negative) Imaging Data CT scan - abdomen/pelvis: Attestation: I personally reviewed and interpreted this imaging study as follows: My Impression: Agree with the radiologist's interpretation Radiologist's Impression: [address] [address] [address] Scan Report Signed Patient: Mishel Reeder MR#: [id number] : 1950 Acct:[id number] Age/Sex: 72 / F Date of Service: 09/14/22 Loc: ED Accession Number: [id number] ?? Procedure: CT abdomen pelvis w con Ordering Provider: Francy Gannon P.A-C PROCEDURE:? CT ABDOMEN PELVIS W CON ? INDICATIONS:? Left UQ Abd pain, vomiting x 6 days ? TECHNIQUE:? After the administration of intravenous contrast, axial sections acquired from the lung bases to the pubic symphysis.? Coronal and sagittal reformats were performed.? For radiation dose reduction, the following was used:? automated exposure control, adjustment of mA and/or kV according to patient size.? ? COMPARISON:? None. ? FINDINGS:? Image quality:? Excellent.? ? Lung bases:? Linear scarring/atelectasis in posterior medial aspect of left lung base is seen.. Heart:? Heart size is enlarged, no pericardial effusion.? Pacemaker leads are seen in right atrium and right ventricle.? Rygy-sa-holccrbn atherosclerotic disease in coronary vessels are seen.? There is a small hiatal hernia. ? ABDOMEN: Liver:? Liver is normal in size.? No discrete hepatic lesion..? ? Gallbladder:? Densely calcified stone in dependent portion of gallbladder lumen is noted. ?No gallbladder wall thickening or pericholecystic fluid. Biliary ducts:? Unremarkable.? ? Pancreas:? Unremarkable.? ? Spleen:? There is a small splenule.? No discrete splenic lesion..? ? Adrenal Glands:? Unremarkable.? ? Kidneys and Ureters:? Bilateral kidneys are normal in size and enhancement.? Bilateral renal cortical cysts are seen.? No hydronephrosis or hydroureter. ? Stomach and Bowel:? There is no bowel obstruction.? No gastric or small bowel wall thickening.? Normal appendix.? There is sigmoid diverticulosis.? Very mild sigmoid colon wall thickening with pericolonic fat stranding in left lower quadrant abdomen is seen, early diverticulitis is suspected.? No abscess collection.? Peritoneum:? No abnormal intraperitoneal fluid.? No free air.? ? Ventral Wall: ? Small umbilical hernia is seen containing fat only. Abdominal Nodes:? No retroperitoneal or mesenteric adenopathy by size criteria.? Vessels:? Aorta and inferior vena cava are normal in size.? Rygm-[id number] atherosclerotic disease in abdominal aorta and bilateral iliac arteries are seen. ? PELVIS: Pelvic Organs:? Unremarkable.? ? Bladder:? Unremarkable.? ? Pelvic Nodes: No enlarged lymph nodes.? Miscellaneous: No hernias are seen. ? ? ? Bones:? Patient is status post bilateral total hip arthroplasty with significant beam hardening artifacts slightly limits evaluation of lower pelvis.? Age indeterminate superior endplate anterior wedge compression deformity at L1 level is seen with up to 30 percent loss of L1 vertebral body height anteriorly.? Degenerative endplate changes are noted in visualized lower thoracic and lumbar spine. ? ? IMPRESSION:? 1.? Age indeterminate anterior wedge compression deformity involving superior endplate of L1 vertebral body with up to 30 percent loss of L1 vertebral body height.? Degenerative disc disease throughout lower thoracic and lumbar spine. ? No suspicious bony lesions.? Prior bilateral total hip arthroplasty. ? 2. Finding may represent mild acute diverticulitis involving proximal sigmoid colon in left lower quadrant.? No other area of abnormal bowel wall thickening.? Normal appendix.? No bowel obstruction.? No free fluid or free air. ? 3. Bilateral renal cysts.? No hydronephrosis or hydroureter. ? 4. Cholelithiasis without CT evidence of acute cholecystitis.? No biliary ductal dilatation.? ? Dictated by: Jesse Gonzalez M.D. on 09/14/2022 at 15:00 ? ? Approved by: Jesse Gonzalez M.D. on 09/14/2022 at 15:06?? Treatment and Disposition Shared decision making:: Shared decision-making was used with the patient and patient's when discussing plan for admission to the hospital, and workup today in the emergency department MDM Narrative Medical decision making narrative: 72-year-old female with history notable for currently in rehab 2nd to periprosthetic left femur fracture and left distal clavicle fracture, chronic left thigh abscess, CKD, hypertension, CHF presented to the emergency department with concern for 6 days of left-sided abdominal pain with persistent 10-14 times a day vomiting reduced p.o. intake. Patient was actually quite well-appearing alert and oriented however her labs were concerning for significant hyponatremia to 114. Most recent labs obtained approximately 1 month ago showed normal sodium levels for the patient of 130. This patient has had a relatively acute decline in her sodium levels, suspect some of this or possibly all of this could be due to the reduced p.o. intake the past week with her vomiting. CT scan was obtained to further evaluate her abdominal pain and was notable for suspected early diverticulitis patient has known diverticulosis. Cholelithiasis without evidence of cholecystitis on CT. Upon discovery of the hyponatremia patient was given a 500 cc fluid bolus of NS, additional urine labs ordered for further evaluation, patient plan for admission for further management of her hyponatremia and abdominal pain/diverticulitis. Report called to hospitalist Dr. Dubose who agrees to take the patient as an inpatient. Patient and in agreement with the plan. <Sheryl Javier, DO - Last Filed: 09/14/22 20:05> Lab Data Labs: Lab Results 09/14/22 09/14/22 09/14/22 Range/Units 13:00 13:00 13:00 WBC 10.6 (4.5-11.0) X10^3/uL RBC 5.69 H (4.0-5.2) X10^6/uL Hgb 15.3 (12.0-16.0) g/dL Hct 46.2 H (36-46) % MCV 81.3 (80-100) fL MCH 26.9 (26-34) PG MCHC 33.1 (30-36) % RDW 16.8 H (11.6-14.8) % Plt Count 294 (150-400) X10^3/uL Neut % (Auto) 76.9 H (50-75) % Lymph % (Auto) 10.8 L (25-40) % [place] % (Auto) 10.5 (3-14) % Eos % (Auto) 1.1 L (2-4) % Baso % (Auto) 0.7 (0-2) % Neut # (Auto) 8100 H (9949-2039) /uL Lymph # (Auto) 1100 (3271-8034) /uL [place] # (Auto) 1100 H (0-900) /uL Eos # (Auto) 100 (0-450) /uL Baso # (Auto) 100 (0-100) /uL PT 19.0 H (10.1-12.7) SECONDS INR 1.6 H (0.9-1.3) Sodium 114 L* (137-145) mmol/L Potassium 3.9 (3.4-5.1) mmol/L Chloride 79 L (98-107) mmol/L Carbon Dioxide 23 (22-32) mmol/L BUN 20 H (7-17) mg/dL Creatinine 0.70 (0.52-1.04) mg/dL Estimated GFR > 60 (>60) mL/min BUN/Creatinine Ratio 28.6 H (6-22) Glucose 95 (80-110) mg/dL Calcium 8.8 (8.4-10.2) mg/dL Magnesium (1.6-2.3) mg/dL Total Bilirubin 1.2 (0.2-1.3) mg/dL AST 29 (14-36) IU/L ALT 25 (<35) IU/L Alkaline Phosphatase 241 H (38-126) U/L Total Protein 7.1 (6.3-8.2) g/dL Albumin 4.0 (3.5-5.0) g/dL Globulin 3.1 (1.7-4.1) g/dL Albumin/Globulin Ratio 1.3 (1.0-2.8) Lipase 53 (23-300) U/L SARS-CoV-2 (PCR) (Negative) Influenza A (RT-PCR) (NEGATIVE) Influenza B (RT-PCR) (NEGATIVE) RSV (PCR) (Negative) 09/14/22 09/14/22 Range/Units 13:05 14:10 WBC (4.5-11.0) X10^3/uL RBC (4.0-5.2) X10^6/uL Hgb (12.0-16.0) g/dL Hct (36-46) % MCV (80-100) fL MCH (26-34) PG MCHC (30-36) % RDW (11.6-14.8) % Plt Count (150-400) X10^3/uL Neut % (Auto) (50-75) % Lymph % (Auto) (25-40) % [place] % (Auto) (3-14) % Eos % (Auto) (2-4) % Baso % (Auto) (0-2) % Neut # (Auto) (7333-7724) /uL Lymph # (Auto) (4978-9149) /uL [place] # (Auto) (0-900) /uL Eos # (Auto) (0-450) /uL Baso # (Auto) (0-100) /uL PT (10.1-12.7) SECONDS INR (0.9-1.3) Sodium (137-145) mmol/L Potassium (3.4-5.1) mmol/L Chloride (98-107) mmol/L Carbon Dioxide (22-32) mmol/L BUN (7-17) mg/dL Creatinine (0.52-1.04) mg/dL Estimated GFR (>60) mL/min BUN/Creatinine Ratio (6-22) Glucose (80-110) mg/dL Calcium (8.4-10.2) mg/dL Magnesium 1.3 L (1.6-2.3) mg/dL Total Bilirubin (0.2-1.3) mg/dL AST (14-36) IU/L ALT (<35) IU/L Alkaline Phosphatase (38-126) U/L Total Protein (6.3-8.2) g/dL Albumin (3.5-5.0) g/dL Globulin (1.7-4.1) g/dL Albumin/Globulin Ratio (1.0-2.8) Lipase (23-300) U/L SARS-CoV-2 (PCR) Negative (Negative) Influenza A (RT-PCR) Flu a negative (NEGATIVE) Influenza B (RT-PCR) Flu b negative (NEGATIVE) RSV (PCR) Negative (Negative) ECG Data Attestation: I personally reviewed and interpreted this ECG as follows: Interpretation: Atrial sensed ventricular paced rhythm rate 8062, P are 224, QRS 92 and QTC 495. Discharge Plan Departure Patient Disposition: Admitted As Inpatient Clinical Impression: Acute hyponatremia, Diverticulitis, Abdominal pain, LUQ, Nausea & vomiting, Fall Admit Date/Time: 09/14/22 15:55 Admit Provider: Eulalio Dubose <Sheryl Javier, - Last Filed: 09/14/22 20:05> Cosign ED Attending Mistyature Attestation: I was immediately available in the department for consultation. Documentation has been reviewed. Case was discussed at length, patient only given very minimal fluids to prevent over-correction, patient very briefly seen. Admitted to hospitalist for hyponatremia likely in the setting of nausea vomiting/diarrhea. Patient did not have significant neurologic changes necessitating 3% saline but we discussed and I ordered seizure precautions.
[2022-09-14 13:25] LABS: INR 1.6 (0.9-1.3)
[2022-09-14 13:29] LABS: Alanine Aminotransferase 25 IU/L (<35); Albumin Globulin Ratio 1.3 (1.0-2.8); Alkaline Phosphatase 241 U/L (38-126); Aspartate Aminotransferase 29 IU/L (14-36); BUN Creatinine Ratio 28.6 (6-22); Bilirubin Total 1.2 mg/dL (0.2-1.3); Blood Urea Nitrogen 20 mg/dL (7-17); Calcium 8.8 mg/dL (8.4-10.2); Carbon Dioxide 23 mmol/L (22-32); Chloride 79 mmol/L (98-107); Estimated Glomerular Filt Rate > 60 mL/min (>60); Globulin 3.1 g/dL (1.7-4.1); Glucose 95 mg/dL (80-110); HEMOLYSIS 18 (0-50); Lipase 53 U/L (23-300); Potassium 3.9 mmol/L (3.4-5.1); Sodium 114 mmol/L (137-145); Total Protein 7.1 g/dL (6.3-8.2)
--- NOTE | 2022-09-14 13:49 | DI.CT.S_ITS ---
PROCEDURE: CT ABDOMEN PELVIS W CON INDICATIONS: Left UQ Abd pain, vomiting x 6 days TECHNIQUE: After the administration of intravenous contrast, axial sections acquired from the lung bases to the pubic symphysis. Coronal and sagittal reformats were performed. For radiation dose reduction, the following was used: automated exposure control, adjustment of mA and/or kV according to patient size. COMPARISON: None. FINDINGS: Image quality: Excellent. Lung bases: Linear scarring/atelectasis in posterior medial aspect of left lung base is seen.. Heart: Heart size is enlarged, no pericardial effusion. Pacemaker leads are seen in right atrium and right ventricle. [id number]-[id number] atherosclerotic disease in coronary vessels are seen. There is a small hiatal hernia. ABDOMEN: Liver: Liver is normal in size. No discrete hepatic lesion.. Gallbladder: Densely calcified stone in dependent portion of gallbladder lumen is noted. No gallbladder wall thickening or pericholecystic fluid. Biliary ducts: Unremarkable. Pancreas: Unremarkable. Spleen: There is a small splenule. No discrete splenic lesion.. Adrenal Glands: Unremarkable. Kidneys and Ureters: Bilateral kidneys are normal in size and enhancement. Bilateral renal cortical cysts are seen. No hydronephrosis or hydroureter. Stomach and Bowel: There is no bowel obstruction. No gastric or small bowel wall thickening. Normal appendix. There is sigmoid diverticulosis. Very mild sigmoid colon wall thickening with pericolonic fat stranding in left lower quadrant abdomen is seen, early diverticulitis is suspected. No abscess collection. Peritoneum: No abnormal intraperitoneal fluid. No free air. Ventral Wall: Small umbilical hernia is seen containing fat only. Abdominal Nodes: No retroperitoneal or mesenteric adenopathy by size criteria. Vessels: Aorta and inferior vena cava are normal in size. [id number] atherosclerotic disease in abdominal aorta and bilateral iliac arteries are seen. PELVIS: Pelvic Organs: Unremarkable. Bladder: Unremarkable. Pelvic Nodes: No enlarged lymph nodes. Miscellaneous: No hernias are seen. Bones: Patient is status post bilateral total hip arthroplasty with significant beam hardening artifacts slightly limits evaluation of lower pelvis. Age indeterminate superior endplate anterior wedge compression deformity at L1 level is seen with up to 30 percent loss of L1 vertebral body height anteriorly. Degenerative endplate changes are noted in visualized lower thoracic and lumbar spine. IMPRESSION: 1. Age indeterminate anterior wedge compression deformity involving superior endplate of L1 vertebral body with up to 30 percent loss of L1 vertebral body height. Degenerative disc disease throughout lower thoracic and lumbar spine. No suspicious bony lesions. Prior bilateral total hip arthroplasty. 2. Finding may represent mild acute diverticulitis involving proximal sigmoid colon in left lower quadrant. No other area of abnormal bowel wall thickening. Normal appendix. No bowel obstruction. No free fluid or free air. 3. Bilateral renal cysts. No hydronephrosis or hydroureter. 4. Cholelithiasis without CT evidence of acute cholecystitis. No biliary ductal dilatation. Dictated by: Jesse Gonzalez M.D. on 09/14/2022 at 15:00 Approved by: Jesse Gonzalez M.D. on 09/14/2022 at 15:06
[2022-09-14] MEDS: SODIUM CHLORIDE 0.9% 1,000 ML 500 ML IV ×2 (14:32→17:15)
[2022-09-14 15:06] LABS: Influenza A - CEPHEID Flu A NEGATIVE (NEGATIVE); Influenza B - CEPHEID Flu B NEGATIVE (NEGATIVE); Respiratory Syncytial Virus Negative (Negative)
[2022-09-14 15:10] LABS: COVID-19 CEPHEID 4-PLEX PCR Negative (Negative)
--- NOTE | 2022-09-14 16:07 | PM.HP.1 ---
History of Present Illness History of Present Illness Date Patient Seen: 09/14/22 Time Patient Seen: 16:07 Chief complaint: Abd pain, hx gallstones Narrative: Mishel Reeder is a 72-year-old female?former smoker with history of chronic iron def anemia, paroxysmal atrial fibrillation on eliquis-post ablation with recent pacemaker placement 05/03/2021, SSS, Hx of Domenic PE (2021), COPD, CKD stage G2/A1, hyperlipidemia, hypothyroidism, peripheral neuropathy,? morbid obesity, YONI on cpap, insomnia, OA, bollous pemphigoid on CellCept who presents from [facility] with aucte onset NV and sodium of 114. Patient says she has been vomiting up to 10x per day for the past few days and feels like she may have picked up a bug. She also notes left sided abd pain. She denies neurologic symptoms including headache, dizziness, or seizures. On the floor patient says her nausea is somewhat better and she is trying some soup. Patient History Medical History Anemia Asthma Atrial fibrillation by electrocardiography Bullous pemphigoid (~10/2019) Chickenpox Cholelithiasis Chronic kidney disease (CKD) stage G2/A1, mildly decreased glomerular filtration rate (GFR) between 60-89 mL/min/1.73 square meter and albuminuria creatinine ratio less than 30 mg/g (09/06/17) Chronic obstructive pulmonary disease (10/19/16) Class 1 obesity (09/05/16) Diverticulosis of colon (~12/2020) Eczema Environmental allergies (09/05/16) Fatigue due to sleep pattern disturbance Hepatitis B core antibody positive History of torn meniscus of right knee Hyperlipidemia (01/25/11) Hypertension (01/25/11) Hypothyroidism (~2007) Insomnia due to medical condition Measles Morbid obesity with body mass index (BMI) of 40.0 to 49.9 Osteoarthritis (01/25/11) Pacemaker (~05/2021) Pedal edema Persistent atrial fibrillation Pulmonary nodules/lesions, multiple Recurrent sinusitis (~1999) Seasonal allergies Sigmoid diverticulosis Snoring Surgical History Anesthesia History of foot surgery History of hip replacement (~2010) History of hip replacement (~2012) History of radiofrequency ablation procedure for cardiac arrhythmia (~07/2019) Polyp of nasal sinus Status post hysterectomy with oophorectomy (~1996) Family & Social History Family History Father Heart disease Hypertension Mother Heart disease Stroke Hypertension Diabetes mellitus Dementia Grandfather Cancer Grandmother No problems noted. Grandfather No problems noted. Grandmother No problems noted. Brother Pacemaker Social History: household members spouse Safety & Behavioral: Feels Safe in Current Yes Environment Been Physically Hurt or No Threatened By a Person Tobacco & Substance use: Tobacco type cigarettes Smoking Status Former smoker alcohol intake current alcohol intake frequency a few times a month Substance Use Type does not use Meds Home Medications and Allergies Home Medications Medication Instructions Recorded Confirmed Type cyanocobalamin (vitamin B-12) 1,000 mcg PO DAILY ##0 08/05/16 09/14/22 History 1,000 mcg tablet,extended release omeprazole magnesium 20 mg 20 mg PO DAILY 06/07/18 09/14/22 History tablet,delayed release (Prilosec OTC) losartan 50 mg tablet 50 mg PO DAILY 12/25/18 09/14/22 History albuterol sulfate 90 mcg/actuation 2 - 4 puff inhalation Q4H PRN 04/08/20 09/14/22 Rx aerosol inhaler (Ventolin HFA) Shortness Of Breath #8.5 grams flecainide 50 mg tablet 100 mg PO BID 06/14/21 09/14/22 History metoprolol succinate 50 mg 100 mg PO BID 07/07/21 09/14/22 History tablet,extended release 24 hr potassium chloride 10 mEq 10 meq PO BEDTIME 07/07/21 09/14/22 History tablet,extended release(part/cryst) ferrous sulfate 325 mg (65 mg 325 mg PO Q OTHER DAY 08/18/21 09/14/22 History iron) tablet apixaban 5 mg tablet (Eliquis) 5 mg PO BID #120 tabs 12/29/21 09/14/22 Rx mycophenolate mofetil 500 mg tablet 1,000 mg PO BID 02/06/22 09/14/22 History pramipexole 0.125 mg tablet 0.125 mg PO BEDTIME #90 tabs 05/13/22 09/14/22 Rx oxycodone 10 mg tablet 10 mg PO Q6HR PRN Pain, Severe 08/16/22 09/14/22 Rx (7-10) 30 days #30 tabs tramadol 50 mg tablet 50 mg PO TID PRN Pain (Scale Score 08/16/22 09/14/22 Rx 7-10) 30 days #30 tabs acetaminophen 325 mg tablet 650 mg PO Q6H PRN Pain (Scale 09/14/22 09/14/22 History Score 1-3) atorvastatin 10 mg tablet 10 mg PO BEDTIME 09/14/22 09/14/22 History benzonatate 100 mg capsule 100 mg PO Q6H PRN Cough 09/14/22 09/14/22 History calcium carbonate 200 mg calcium 1 tab PO DAILY 09/14/22 09/14/22 History (500 mg)-vitamin D3 400 unit tablet d-mannose 500 mg capsule 500 mg PO DAILY 09/14/22 09/14/22 History guaifenesin 600 mg tablet, 600 mg PO Q12H PRN Congestion 09/14/22 09/14/22 History extended release 12 hr (Mucinex) levothyroxine 75 mcg tablet 75 mcg PO DAILY 09/14/22 09/14/22 History melatonin 3 mg tablet 3 mg PO BEDTIME PRN Insomnia 09/14/22 09/14/22 History ondansetron HCl 4 mg/5 mL oral 4 mg PO Q4H PRN Nausea 09/14/22 09/14/22 History solution Allergies Allergy/AdvReac Type Severity Reaction Status Date / Time diuretics AdvReac Rash Uncoded 09/14/22 12:16 Exam Vital Signs (past 8 hours): - 09/14/22 12:11 09/14/22 12:49 09/14/22 13:00 Temperature 98.4 F Pulse Rate 66 63 61 Respiratory Rate 18 Blood Pressure 152/90 H Pulse Oximetry 97 97 97 Oxygen Delivery Method Room Air 09/14/22 13:15 09/14/22 13:30 Temperature Pulse Rate 62 61 Respiratory Rate Blood Pressure Pulse Oximetry 96 97 Oxygen Delivery Method Oxygen Delivery Method Room Air Narrative Exam Narrative: GEN: no acute distress, very pleasant HEENT: moist mucous membranes, PERRL NECK: trachea midline, no JVD CV: regular rate and rhythm, no murmurs PULM: clear bilaterally ABD: soft, tender in LLQ, nondistended, no organomegaly EXT: warm and well perfused with no edema NEURO: awake, alert, oriented, no focal deficits Objective Labs 09/14/22 13:00 09/14/22 17:25 Labs: Laboratory Results - last 24 hr 09/14/22 09/14/22 09/14/22 13:00 13:00 13:00 WBC 10.6 RBC 5.69 H Hgb 15.3 Hct 46.2 H MCV 81.3 MCH 26.9 MCHC 33.1 RDW 16.8 H Plt Count 294 Neut % (Auto) 76.9 H Lymph % (Auto) 10.8 L [place] % (Auto) 10.5 Eos % (Auto) 1.1 L Baso % (Auto) 0.7 Neut # (Auto) 8100 H Lymph # (Auto) 1100 [place] # (Auto) 1100 H Eos # (Auto) 100 Baso # (Auto) 100 PT 19.0 H INR 1.6 H Sodium 114 L* Potassium 3.9 Chloride 79 L Carbon Dioxide 23 BUN 20 H Creatinine 0.70 Estimated GFR > 60 BUN/Creatinine Ratio 28.6 H Glucose 95 Calcium 8.8 Total Bilirubin 1.2 AST 29 ALT 25 Alkaline Phosphatase 241 H Total Protein 7.1 Albumin 4.0 Globulin 3.1 Albumin/Globulin Ratio 1.3 Lipase 53 SARS-CoV-2 (PCR) Influenza A (RT-PCR) Influenza B (RT-PCR) RSV (PCR) 09/14/22 14:10 WBC RBC Hgb Hct MCV MCH MCHC RDW Plt Count Neut % (Auto) Lymph % (Auto) [place] % (Auto) Eos % (Auto) Baso % (Auto) Neut # (Auto) Lymph # (Auto) [place] # (Auto) Eos # (Auto) Baso # (Auto) PT INR Sodium Potassium Chloride Carbon Dioxide BUN Creatinine Estimated GFR BUN/Creatinine Ratio Glucose Calcium Total Bilirubin AST ALT Alkaline Phosphatase Total Protein Albumin Globulin Albumin/Globulin Ratio Lipase SARS-CoV-2 (PCR) Negative Influenza A (RT-PCR) Flu a negative Influenza B (RT-PCR) Flu b negative RSV (PCR) Negative Assessment & Plan Assessment & Plan narrative: # acute hyponatremia -Na 114 in ED, previously 130 one month ago -etiology hypovolemic from vomiting -received 500cc in ED, will give another 500 bolus and start 100cc/hr -correct no more than 8 mEq per 24 hours, goal Na 120-122 by 1pm on 09/15 -q4h BMP's # acute abdominal pain with NV -likely due to diverticulitis seen on CT abd -zosyn IV -antiemetics PRN # Bullous pemphigoid, chronic, present on admission -patient is unable to tolerate diuretics as they cause pemphigoid/ bollous flare/outbreaks. -continue CellCept # Paroxysmal atrial fibrillation, w/SSS s/p ablation and pacemaker placement (05/2021), history of bilateral PE (2021) present on admission-stable -Continue Eliquis 5 mg b.i.d. (Failed Xeralto) -Managed by Cardiology -continue flecainide -Pt on tele -last Echo 02/28/2019 Dr. Nathan left EF 60+/-5%-moderate mitral valve regurgitation, tricuspid regurgitation. # Essential hypertension, chronic, present on admission-stable -continue home losartan and metoprolol # Hyperlipidemia, chronic, present on admission -Continue Lipitor # Peripheral neuropathy, chronic, present on admission -Continue tramadol # Restless leg syndrome, chronic, present on admission -Continue pramipexole # Hypothyroidism, acquired, chronic, present on admission -continue levothyroxine # GERD, chronic, present on admission -continue omeprazole # Insomnia, chronic, Present on admission -continue Trazadone # Obesity, moderate, acute on chronic, present on admission -dietary consult ordered regarding nutritional education and information for dietary, lifestyle, exercise, and weight changes. -the patient is at much higher risk for medical and surgical complications due to obesity as it relates to chronic illnesses:, and acute illness and injuries.? The patient's obesity increases the difficulty and complexity of medical and/or surgical interventions, management and increases the chances of poor outcome such as morbidity and mortality as well as impaired wound healing. -as evidence by BMI of 36.6 Code status is full code. COVID negative. DVT prophylaxis with Eliquis. Proxy is Keshav. I have reviewed home meds and used all available resources to reconcile the home meds. This patient will be admitted as inpatient and will require greater than 2 midnights of hospital time to treat hyponatremia and diverticulitis. Time Spent With Patient Critical Care time: I spent a total of [] minutes of critical care time on this patient's care today; this time is exclusive of procedural time.
[2022-09-14 16:16] LABS: Magnesium 1.3 mg/dL (1.6-2.3)
[2022-09-14] MEDS: PIPERACILLIN/TAZO 4.5 GM in SODIUM CHLORIDE 0.9% 100 ML IV (17:05)
[2022-09-14] MEDS: MAGNESIUM SULFATE 4 GM/100 ML PIGGYBACK IV (17:22)
[2022-09-14 17:46] LABS: BUN Creatinine Ratio 29.5 (6-22); Blood Urea Nitrogen 18 mg/dL (7-17); Calcium 7.9 mg/dL (8.4-10.2); Carbon Dioxide 22 mmol/L (22-32); Chloride 82 mmol/L (98-107); Estimated Glomerular Filt Rate > 60 mL/min (>60); Glucose 81 mg/dL (80-110); HEMOLYSIS < 15 (0-50); Potassium 3.5 mmol/L (3.4-5.1)
[2022-09-14] MEDS: ONDANSETRON 4 MG/2 ML INJ IV (17:46)
[2022-09-14 17:56] LABS: Sodium 116 mmol/L (137-145)
[2022-09-14] MEDS: MYCOPHENOLATE MOFETIL 500 MG TABLET 1000 MG PO (20:51)
[2022-09-14] MEDS: METOPROLOL ER 50 MG TABLET 100 MG PO (20:52)
[2022-09-14] MEDS: PRAMIPEXOLE 0.125 MG TABLET PO (20:52)
[2022-09-14] MEDS: TRAZODONE 50 MG TABLET PO (20:52)
[2022-09-14] MEDS: FLECAINIDE 100 MG TABLET PO (20:53)
[2022-09-14] MEDS: ATORVASTATIN 20 MG TABLET 10 MG PO (20:53)
[2022-09-14] MEDS: MELATONIN 3 MG TABLET 6 MG PO (20:53)
[2022-09-14] MEDS: APIXABAN 5 MG TABLET PO (20:53)
[2022-09-14] MEDS: OXYCODONE IR 10 MG TABLET PO (21:09)
[2022-09-14 21:18] LABS: BUN Creatinine Ratio 22.7 (6-22); Blood Urea Nitrogen 17 mg/dL (7-17); Calcium 7.8 mg/dL (8.4-10.2); Carbon Dioxide 23 mmol/L (22-32); Chloride 83 mmol/L (98-107); Estimated Glomerular Filt Rate > 60 mL/min (>60); Glucose 97 mg/dL (80-110); HEMOLYSIS < 15 (0-50); Potassium 3.1 mmol/L (3.4-5.1)
[2022-09-14] MEDS: SODIUM CHLORIDE 0.9% 1,000 ML 100 ML IV (21:23)
[2022-09-14 21:29] LABS: Sodium 116 mmol/L (137-145)
[2022-09-14] MEDS: PIPERACILLIN/TAZO 3.375 GM in SODIUM CHLORIDE 0.9% 100 ML IV (23:13)
[2022-09-15] VITALS (7 sets, daily range): BP systolic 134–178; BP diastolic 62–83; PULSE 60–65; RESP 14–19; TEMP 36.1–36.4; O2SAT 96–100
[2022-09-15 05:05] LABS: Add Manual Diff / Slide Review NO; Basophils Absolute Auto 0 /uL (0-100); Basophils Percent Auto 0.4 % (0-2); Eosinophils Absolute Auto 100 /uL (0-450); Eosinophils Percent Auto 0.6 % (2-4); Hematocrit 42.6 % (36-46); Hemoglobin 14.2 g/dL (12.0-16.0); Lymphocytes Absolute Auto 900 /uL (1100-4500); Lymphocytes Percent Auto 9.2 % (25-40); Mean Corpuscular HGB Conc 33.4 % (30-36); Mean Corpuscular Hemoglobin 27.4 PG (26-34); Mean Corpuscular Volume 81.9 fL (80-100); Monocytes Absolute Auto 1100 /uL (0-900); Monocytes Percent Auto 10.7 % (3-14); Neutrophils Absolute Auto 7900 /uL (1500-7000); Neutrophils Percent Auto 79.1 % (50-75); Platelet Count 246 X10^3/uL (150-400); Red Cell Distribution Width 16.8 % (11.6-14.8)
[2022-09-15 05:13] LABS: BUN Creatinine Ratio 22.4 (6-22); Blood Urea Nitrogen 19 mg/dL (7-17); Calcium 7.9 mg/dL (8.4-10.2); Carbon Dioxide 23 mmol/L (22-32); Chloride 83 mmol/L (98-107); Estimated Glomerular Filt Rate > 60 mL/min (>60); Glucose 85 mg/dL (80-110); HEMOLYSIS < 15 (0-50); Potassium 3.3 mmol/L (3.4-5.1)
[2022-09-15 05:18] LABS: Sodium 117 mmol/L (137-145)
[2022-09-15] MEDS: ONDANSETRON 4 MG/2 ML INJ IV ×3 (06:13→17:50)
[2022-09-15] MEDS: LEVOTHYROXINE 75 MCG TABLET PO (06:13)
[2022-09-15] MEDS: PANTOPRAZOLE DR 20 MG TABLET PO (06:13)
[2022-09-15] MEDS: ACETAMINOPHEN 325 MG TABLET 650 MG PO (06:26)
--- NOTE | 2022-09-15 07:45 | PM.PN.1 ---
Subjective Subjective Interval history: Nausea and vomiting has improved. Eating some food this morning. Much less abdominal pain. No mental confusion. Exam Vital Signs (past 8 hours): - 09/15/22 04:45 Temperature 97 F L Pulse Rate 65 Respiratory Rate 16 Blood Pressure 134/69 Pulse Oximetry 96 Oxygen Flow Rate 0 Oxygen Delivery Method Room Air Oxygen Flow Rate 0 Narrative Exam Narrative: GEN: no acute distress, very pleasant. Speech normal. HEENT: moist mucous membranes, anicteric sclera. NECK: trachea midline, no JVD CV: regular rate and rhythm, no murmurs PULM: clear bilaterally, no wheezing. ABD: soft, non-tender, non-distended, no organomegaly. EXT: warm and well perfused with no edema NEURO: awake, alert, oriented, no focal deficits Objective Labs 09/15/22 04:35 09/15/22 11:15 Labs: Laboratory Results - last 24 hr 09/14/22 09/14/22 09/14/22 13:00 13:00 13:00 WBC 10.6 RBC 5.69 H Hgb 15.3 Hct 46.2 H MCV 81.3 MCH 26.9 MCHC 33.1 RDW 16.8 H Plt Count 294 Neut % (Auto) 76.9 H Lymph % (Auto) 10.8 L [place] % (Auto) 10.5 Eos % (Auto) 1.1 L Baso % (Auto) 0.7 Neut # (Auto) 8100 H Lymph # (Auto) 1100 [place] # (Auto) 1100 H Eos # (Auto) 100 Baso # (Auto) 100 PT 19.0 H INR 1.6 H Sodium 114 L* Potassium 3.9 Chloride 79 L Carbon Dioxide 23 BUN 20 H Creatinine 0.70 Estimated GFR > 60 BUN/Creatinine Ratio 28.6 H Glucose 95 Calcium 8.8 Magnesium Total Bilirubin 1.2 AST 29 ALT 25 Alkaline Phosphatase 241 H Total Protein 7.1 Albumin 4.0 Globulin 3.1 Albumin/Globulin Ratio 1.3 Lipase 53 SARS-CoV-2 (PCR) Influenza A (RT-PCR) Influenza B (RT-PCR) RSV (PCR) 09/14/22 09/14/22 09/14/22 13:05 14:10 17:25 WBC RBC Hgb Hct MCV MCH MCHC RDW Plt Count Neut % (Auto) Lymph % (Auto) [place] % (Auto) Eos % (Auto) Baso % (Auto) Neut # (Auto) Lymph # (Auto) [place] # (Auto) Eos # (Auto) Baso # (Auto) PT INR Sodium 116 L* Potassium 3.5 Chloride 82 L Carbon Dioxide 22 BUN 18 H Creatinine 0.61 Estimated GFR > 60 BUN/Creatinine Ratio 29.5 H Glucose 81 Calcium 7.9 L Magnesium 1.3 L Total Bilirubin AST ALT Alkaline Phosphatase Total Protein Albumin Globulin Albumin/Globulin Ratio Lipase SARS-CoV-2 (PCR) Negative Influenza A (RT-PCR) Flu a negative Influenza B (RT-PCR) Flu b negative RSV (PCR) Negative 09/14/22 09/15/22 09/15/22 21:00 04:35 04:35 WBC 10.0 RBC 5.20 Hgb 14.2 Hct 42.6 MCV 81.9 MCH 27.4 MCHC 33.4 RDW 16.8 H Plt Count 246 Neut % (Auto) 79.1 H Lymph % (Auto) 9.2 L [place] % (Auto) 10.7 Eos % (Auto) 0.6 L Baso % (Auto) 0.4 Neut # (Auto) 7900 H Lymph # (Auto) 900 L [place] # (Auto) 1100 H Eos # (Auto) 100 Baso # (Auto) 0 PT INR Sodium 116 L* 117 L* Potassium 3.1 L 3.3 L Chloride 83 L 83 L Carbon Dioxide 23 23 BUN 17 19 H Creatinine 0.75 0.85 Estimated GFR > 60 > 60 BUN/Creatinine Ratio 22.7 H 22.4 H Glucose 97 85 Calcium 7.8 L 7.9 L Magnesium Total Bilirubin AST ALT Alkaline Phosphatase Total Protein Albumin Globulin Albumin/Globulin Ratio Lipase SARS-CoV-2 (PCR) Influenza A (RT-PCR) Influenza B (RT-PCR) RSV (PCR) [facility] Medical History Anemia Asthma Atrial fibrillation by electrocardiography Bullous pemphigoid (~10/2019) Chickenpox Cholelithiasis Chronic kidney disease (CKD) stage G2/A1, mildly decreased glomerular filtration rate (GFR) between 60-89 mL/min/1.73 square meter and albuminuria creatinine ratio less than 30 mg/g (09/06/17) Chronic obstructive pulmonary disease (10/19/16) Class 1 obesity (09/05/16) Diverticulosis of colon (~12/2020) Eczema Environmental allergies (09/05/16) Fatigue due to sleep pattern disturbance Hepatitis B core antibody positive History of torn meniscus of right knee Hyperlipidemia (01/25/11) Hypertension (01/25/11) Hypothyroidism (~2007) Insomnia due to medical condition Measles Morbid obesity with body mass index (BMI) of 40.0 to 49.9 Osteoarthritis (01/25/11) Pacemaker (~05/2021) Pedal edema Persistent atrial fibrillation Pulmonary nodules/lesions, multiple Recurrent sinusitis (~1999) Seasonal allergies Sigmoid diverticulosis Snoring Surgical History Anesthesia History of foot surgery History of hip replacement (~2010) History of hip replacement (~2012) History of radiofrequency ablation procedure for cardiac arrhythmia (~07/2019) Polyp of nasal sinus Status post hysterectomy with oophorectomy (~1996) Family History Father Heart disease Hypertension Mother Heart disease Stroke Hypertension Diabetes mellitus Dementia Grandfather Cancer Grandmother No problems noted. Grandfather No problems noted. Grandmother No problems noted. Brother Pacemaker Social History marital status: household members: spouse occupational status: previously employed Smoking Status: Former smoker alcohol intake: current substance use type: does not use Assessment & Plan Assessment & Plan narrative: -hypovolemic hyponatremia, present on admission and improving -Na 114 in ED, previously 130 one month ago -etiology hypovolemic from vomiting -received 500cc in ED, will give another 500 bolus and start 100cc/hr -correct no more than 8 mEq per 24 hours, goal Na 120-122 by 1pm on 09/15 -q4h BMP's -Abdominal pain and possible diverticulitis with NV, present on admission and improving. -likely due to diverticulitis seen on CT abd -zosyn IV -antiemetics PRN -Bullous pemphigoid, chronic, present on admission and stable. -patient is unable to tolerate diuretics as they cause pemphigoid/ bollous flare/outbreaks. -continue CellCept -Paroxysmal atrial fibrillation, w/SSS s/p ablation and pacemaker placement (05/2021), history of bilateral PE (2021) present on admission-stable -Continue Eliquis 5 mg b.i.d. (Failed Xeralto) -Managed by Cardiology -continue flecainide -Pt on tele -last Echo 02/28/2019 Dr. Nathan left EF 60+/-5%-moderate mitral valve regurgitation, tricuspid regurgitation. -Essential hypertension, chronic, present on admission-stable -continue home losartan and metoprolol -Hyperlipidemia, chronic, present on admission -Continue Lipitor -Peripheral neuropathy, chronic, present on admission -Continue tramadol -Restless leg syndrome, chronic, present on admission -Continue pramipexole -Hypothyroidism, acquired, chronic, present on admission -continue levothyroxine -GERD, chronic, present on admission -continue omeprazole -Insomnia, chronic, Present on admission -continue Trazadone -Obesity class 2 with BMI of 36, present on admission and active. -dietary consult ordered regarding nutritional education and information for dietary, lifestyle, exercise, and weight changes. -the patient is at much higher risk for medical and surgical complications due to obesity as it relates to chronic illnesses:, and acute illness and injuries.? The patient's obesity increases the difficulty and complexity of medical and/or surgical interventions, management and increases the chances of poor outcome such as morbidity and mortality as well as impaired wound healing. Code status is full code. COVID negative. DVT prophylaxis with Eliquis. Proxy is Keshav. This patient will be admitted as inpatient and will require greater than 2 midnights of hospital time to treat hyponatremia and diverticulitis.
[2022-09-15] MEDS: PIPERACILLIN/TAZO 3.375 GM in SODIUM CHLORIDE 0.9% 100 ML IV ×2 (09:17→16:11)
[2022-09-15] MEDS: FLECAINIDE 100 MG TABLET PO ×2 (09:17→20:52)
[2022-09-15] MEDS: MYCOPHENOLATE MOFETIL 500 MG TABLET 1000 MG PO ×2 (09:18→20:51)
[2022-09-15] MEDS: LOSARTAN 50 MG TABLET PO (09:18)
[2022-09-15] MEDS: APIXABAN 5 MG TABLET PO ×2 (09:18→20:50)
[2022-09-15] MEDS: METOPROLOL ER 50 MG TABLET 100 MG PO ×2 (09:18→20:50)
[2022-09-15 11:48] LABS: BUN Creatinine Ratio 25.7 (6-22); Blood Urea Nitrogen 19 mg/dL (7-17); Calcium 7.8 mg/dL (8.4-10.2); Carbon Dioxide 25 mmol/L (22-32); Chloride 86 mmol/L (98-107); Estimated Glomerular Filt Rate > 60 mL/min (>60); Glucose 95 mg/dL (80-110); HEMOLYSIS < 15 (0-50); Potassium 3.5 mmol/L (3.4-5.1)
[2022-09-15 11:52] LABS: Sodium 117 mmol/L (137-145)
[2022-09-15] MEDS: POTASSIUM CHLORIDE 20 MEQ TAB 40 MEQ PO (12:04)
--- NOTE | 2022-09-15 13:18 | CM.IDA ---
Initial DCP Assessment Patient is 72 y/o female who presents to via EMS from [facility] rehab due to concern for left sided abdominal pain. Patient has with recent history of periprosthetic left femur fracture left distal clavicle fracture; chronic left thigh abscess, renal failure stage G2/A1, atrial fibrillation, pacemaker (2020), hypertension, diverticulosis and cholelithiasis Patient's PCP is Dr. Shira Corbin, patient has Medicare [facility] insurance. [employer] enters room to meet with patient, present in room is patient's spouse Keshav. Patient endorses prior to [facility] stay she was independent with ADLs and used FWW and cane. Patient's spouse typically drives. Patient endorses preference not to return to [facility] rehab and preference to return to home with HH, patient denies HH agency preference. Patient endorses he is able to transfer from FWW to wheelchair and can transfer to commode, patient states she has not tried transferring to car. Patient endorses she can only bear about 20lbs on left leg. Patient endorses she has local family with a daughter that lives in [place], son in [place] and grandson in [place]. Patient has hx of ongoing wound care with ISELA Kwan at [facility]. PT/OT has not been ordered, patient will likely need PT/OT eval to determine patient's level of care. Patient endorses she may be able to transport home with via POV if she can transfer to car but may need cabulance. [employer] to complete F2F for HH referral. Plan: Pending OT/PT eval, plan A: Home with HH vs. return to [facility]. F/u with HH referral and contact [facility] regarding patient's POC. Per EMR patient likely to stay more than 2 midnights. RHONA Alarcon Discharge Planning/Care Management CM Discharge Assessment Start: 09/15/22 13:10 Freq: Status: Active Protocol: Document 09/15/22 13:10 LN (Rec: 09/15/22 13:17 LN [id number]) Discharge Planning Assessment Assigned Block Mechanic RHONA Henry DPOA/Assigned Designee Name Keshav Reeder/Spouse Contact Information [phone] Advance Directives? Yes: still trying to decide on her directives Advance Directives on File No History Provided By Patient,Significant Other, Medical Record Has Patient been admitted in last 30 No days? Comment Patient d/c'd to [facility] rehab on 08/15/22 Prior Living Arrangements House Household Members spouse Type of transporation used prior to Relies on Others admit Facility Name Admitted From: [facility] Willing to Return to Facility? No: Patient preference to d/c to home with HH Independent with ADL's No Is patient alert and oriented? Yes Needs Assistance With Bathing,Home Chores / Shopping Caregiver for Another No Comment Patient is established with [facility] outpatient [facility]ound care DME Already Rented / Owned Wheelchair,FWW / Walker,Cane Patient/Family Preference Home with Home Health Comment Patient preference is to d/c to home with HH, no preference for HH agency. Discharge Plan Home with Home Health Transportation Arrangement Spouse plans to provide transport home at d/c vs Cabulance if needed Referrals Initiated Home Health Additional Comment Pending PT/OT eval SNF/HH Preference No HH preference Please Provide Date Initial DC 09/15/22 Assessment Was Performed
[2022-09-15] MEDS: BENZONATATE 100 MG CAPSULE PO ×2 (14:25→22:54)
[2022-09-15] MEDS: SODIUM CHLORIDE 0.9% 1,000 ML 75 ML IV (15:18)
[2022-09-15 16:01] LABS: Blood Urea Nitrogen 17 mg/dL (7-17); Calcium 8.1 mg/dL (8.4-10.2); Carbon Dioxide 24 mmol/L (22-32); Chloride 86 mmol/L (98-107); Estimated Glomerular Filt Rate > 60 mL/min (>60); Glucose 93 mg/dL (80-110); HEMOLYSIS < 15 (0-50); Potassium 3.5 mmol/L (3.4-5.1)
[2022-09-15 17:00] LABS: Sodium 119 mmol/L (137-145)
[2022-09-15 19:25] LABS: BUN Creatinine Ratio 22.9 (6-22); Blood Urea Nitrogen 16 mg/dL (7-17); Calcium 7.8 mg/dL (8.4-10.2); Carbon Dioxide 22 mmol/L (22-32); Chloride 91 mmol/L (98-107); Estimated Glomerular Filt Rate > 60 mL/min (>60); Glucose 99 mg/dL (80-110); HEMOLYSIS < 15 (0-50); Potassium 3.3 mmol/L (3.4-5.1); Sodium 121 mmol/L (137-145)
[2022-09-15] MEDS: ATORVASTATIN 20 MG TABLET 10 MG PO (20:51)
[2022-09-15] MEDS: PRAMIPEXOLE 0.125 MG TABLET PO (20:52)
[2022-09-16] VITALS (7 sets, daily range): BP systolic 125–150; BP diastolic 42–67; PULSE 61–66; RESP 15–17; TEMP 36.2–36.6; O2SAT 96–100; BMI 36.6
[2022-09-16 00:07] LABS: BUN Creatinine Ratio 16.7 (6-22); Blood Urea Nitrogen 14 mg/dL (7-17); Carbon Dioxide 23 mmol/L (22-32); Chloride 93 mmol/L (98-107); Estimated Glomerular Filt Rate > 60 mL/min (>60); Glucose 79 mg/dL (80-110); HEMOLYSIS < 15 (0-50); Potassium 3.3 mmol/L (3.4-5.1); Sodium 123 mmol/L (137-145)
[2022-09-16] MEDS: PIPERACILLIN/TAZO 3.375 GM in SODIUM CHLORIDE 0.9% 100 ML IV ×3 (00:29→16:29)
[2022-09-16] MEDS: ONDANSETRON 4 MG/2 ML INJ IV ×4 (00:30→18:15)
[2022-09-16 01:27] LABS: BUN Creatinine Ratio 19.2 (6-22); Blood Urea Nitrogen 14 mg/dL (7-17); Calcium 8.1 mg/dL (8.4-10.2); Carbon Dioxide 23 mmol/L (22-32); Chloride 94 mmol/L (98-107); Estimated Glomerular Filt Rate > 60 mL/min (>60); Glucose 78 mg/dL (80-110); HEMOLYSIS < 15 (0-50); Potassium 3.3 mmol/L (3.4-5.1); Sodium 123 mmol/L (137-145)
[2022-09-16 04:46] LABS: Add Manual Diff / Slide Review NO; BUN Creatinine Ratio 15.7 (6-22); Basophils Absolute Auto 200 /uL (0-100); Basophils Percent Auto 2.7 % (0-2); Blood Urea Nitrogen 13 mg/dL (7-17); Carbon Dioxide 24 mmol/L (22-32); Chloride 94 mmol/L (98-107); Eosinophils Absolute Auto 100 /uL (0-450); Eosinophils Percent Auto 0.9 % (2-4); Estimated Glomerular Filt Rate > 60 mL/min (>60); Glucose 77 mg/dL (80-110); HEMOLYSIS < 15 (0-50); Hematocrit 39.8 % (36-46); Lymphocytes Absolute Auto 700 /uL (1100-4500); Lymphocytes Percent Auto 7.4 % (25-40); Mean Corpuscular HGB Conc 32.7 % (30-36); Mean Corpuscular Hemoglobin 26.8 PG (26-34); Mean Corpuscular Volume 81.9 fL (80-100); Monocytes Absolute Auto 800 /uL (0-900); Monocytes Percent Auto 8.3 % (3-14); Neutrophils Absolute Auto 7500 /uL (1500-7000); Neutrophils Percent Auto 80.7 % (50-75); Platelet Count 216 X10^3/uL (150-400); Potassium 3.4 mmol/L (3.4-5.1); Red Blood Cell Count 4.87 X10^6/uL (4.0-5.2); Red Cell Distribution Width 16.7 % (11.6-14.8); Sodium 125 mmol/L (137-145); White Blood Cell Count 9.3 X10^3/uL (4.5-11.0)
[2022-09-16] MEDS: LEVOTHYROXINE 75 MCG TABLET PO (06:40)
[2022-09-16] MEDS: PANTOPRAZOLE DR 20 MG TABLET PO (06:40)
--- NOTE | 2022-09-16 07:30 | PM.PN.1 ---
Subjective Subjective Interval history: Less abdomen pain, better appetite. Some diarrhea for 2 days. Was in SNF gor rehab, hip fracture (partial weight bearing 20 lbs until 09/27 fu Ortho (Dr Mally HERNANDEZ)). Exam Vital Signs (past 8 hours): - 09/16/22 06:00 Temperature 97.1 F L Pulse Rate 64 Respiratory Rate 15 Blood Pressure 148/66 H Pulse Oximetry 96 Oxygen Flow Rate 0 Oxygen Delivery Method Room Air Oxygen Flow Rate 0 Narrative Exam Narrative: GEN: no acute distress, very pleasant. Speech normal. HEENT: moist mucous membranes, anicteric sclera. NECK: trachea midline, no JVD CV: regular rate and rhythm, no murmurs PULM: clear bilaterally, no wheezing. ABD: soft, non-tender, non-distended, no organomegaly. EXT: warm and well perfused with no edema NEURO: awake, alert, oriented, no focal deficits Objective Imaging CT scan - abdomen: Radiologist's impression: 1.? Age indeterminate anterior wedge compression deformity involving superior endplate of L1 vertebral body with up to 30 percent loss of L1 vertebral body height.? Degenerative disc disease throughout lower thoracic and lumbar spine. ? No suspicious bony lesions.? Prior bilateral total hip arthroplasty. ? 2. Finding may represent mild acute diverticulitis involving proximal sigmoid colon in left lower quadrant.? No other area of abnormal bowel wall thickening.? Normal appendix.? No bowel obstruction.? No free fluid or free air. ? 3. Bilateral renal cysts.? No hydronephrosis or hydroureter. ? 4. Cholelithiasis without CT evidence of acute cholecystitis.? No biliary ductal dilatation.? Labs 09/16/22 04:25 09/16/22 04:25 Labs: Laboratory Results - last 24 hr 09/15/22 09/15/22 09/15/22 11:15 15:13 19:03 WBC RBC Hgb Hct MCV MCH MCHC RDW Plt Count Neut % (Auto) Lymph % (Auto) [place] % (Auto) Eos % (Auto) Baso % (Auto) Neut # (Auto) Lymph # (Auto) [place] # (Auto) Eos # (Auto) Baso # (Auto) Sodium 117 L* 119 L* 121 L Potassium 3.5 3.5 3.3 L Chloride 86 L 86 L 91 L Carbon Dioxide 25 24 22 BUN 19 H 17 16 Creatinine 0.74 0.74 0.70 Estimated GFR > 60 > 60 > 60 BUN/Creatinine Ratio 25.7 H 23.0 H 22.9 H Glucose 95 93 99 Calcium 7.8 L 8.1 L 7.8 L 09/15/22 09/16/22 09/16/22 23:39 01:01 04:25 WBC RBC Hgb Hct MCV MCH MCHC RDW Plt Count Neut % (Auto) Lymph % (Auto) [place] % (Auto) Eos % (Auto) Baso % (Auto) Neut # (Auto) Lymph # (Auto) [place] # (Auto) Eos # (Auto) Baso # (Auto) Sodium 123 L 123 L 125 L Potassium 3.3 L 3.3 L 3.4 Chloride 93 L 94 L 94 L Carbon Dioxide 23 23 24 BUN 14 14 13 Creatinine 0.84 0.73 0.83 Estimated GFR > 60 > 60 > 60 BUN/Creatinine Ratio 16.7 19.2 15.7 Glucose 79 L 78 L 77 L Calcium 8.0 L 8.1 L 8.0 L 09/16/22 04:25 WBC 9.3 RBC 4.87 Hgb 13.0 Hct 39.8 MCV 81.9 MCH 26.8 MCHC 32.7 RDW 16.7 H Plt Count 216 Neut % (Auto) 80.7 H Lymph % (Auto) 7.4 L [place] % (Auto) 8.3 Eos % (Auto) 0.9 L Baso % (Auto) 2.7 H Neut # (Auto) 7500 H Lymph # (Auto) 700 L [place] # (Auto) 800 Eos # (Auto) 100 Baso # (Auto) 200 H Sodium Potassium Chloride Carbon Dioxide BUN Creatinine Estimated GFR BUN/Creatinine Ratio Glucose Calcium [facility] Medical History Anemia Asthma Atrial fibrillation by electrocardiography Bullous pemphigoid (~10/2019) Chickenpox Cholelithiasis Chronic kidney disease (CKD) stage G2/A1, mildly decreased glomerular filtration rate (GFR) between 60-89 mL/min/1.73 square meter and albuminuria creatinine ratio less than 30 mg/g (09/06/17) Chronic obstructive pulmonary disease (10/19/16) Class 1 obesity (09/05/16) Diverticulosis of colon (~12/2020) Eczema Environmental allergies (09/05/16) Fatigue due to sleep pattern disturbance Hepatitis B core antibody positive History of torn meniscus of right knee Hyperlipidemia (01/25/11) Hypertension (01/25/11) Hypothyroidism (~2007) Insomnia due to medical condition Measles Morbid obesity with body mass index (BMI) of 40.0 to 49.9 Osteoarthritis (01/25/11) Pacemaker (~05/2021) Pedal edema Persistent atrial fibrillation Pulmonary nodules/lesions, multiple Recurrent sinusitis (~1999) Seasonal allergies Sigmoid diverticulosis Snoring Surgical History Anesthesia History of foot surgery History of hip replacement (~2010) History of hip replacement (~2012) History of radiofrequency ablation procedure for cardiac arrhythmia (~07/2019) Polyp of nasal sinus Status post hysterectomy with oophorectomy (~1996) Family History Father Heart disease Hypertension Mother Heart disease Stroke Hypertension Diabetes mellitus Dementia Grandfather Cancer Grandmother No problems noted. Grandfather No problems noted. Grandmother No problems noted. Brother Pacemaker Social History marital status: household members: spouse occupational status: previously employed Smoking Status: Former smoker alcohol intake: current substance use type: does not use Assessment & Plan Assessment & Plan narrative: 1. Hypovolemic hyponatremia, present on admission and improving. -Na 114 in ED, previously 130 one month ago -etiology hypovolemic from vomiting -received 500cc in ED, will give another 500 bolus and start 100cc/hr -correct no more than 8 mEq per 24 hours, goal Na 120-122 by 1pm on 09/15 -Q12 Na, 125 today. Saline at 50/hr. 2. Abdominal pain and possible diverticulitis with NV, present on admission and improving. -likely due to diverticulitis seen on CT abd -zosyn IV -antiemetics PRN 3. Diarrhea, new and active. -possible from Abx, follow. No testing or intervention performed at this point. 4. Recent hip fracture, present on admission and active -OOB, PT and OT eval. Came from SNF (wants to go home). 5. Left thigh and leg wounds, present on admission and active. -wound care will change dressings today. 6. Bullous pemphigoid, chronic, present on admission and stable. -patient is unable to tolerate diuretics as they cause pemphigoid/ bollous flare/outbreaks. -continue CellCept 7. Paroxysmal atrial fibrillation, w/SSS s/p ablation and pacemaker placement (05/2021), history of bilateral PE (2021) present on admission and stable. -Continue Eliquis 5 mg b.i.d. (Failed Xeralto) -Managed by Cardiology -continue flecainide -Pt on tele -last Echo 02/28/2019 Dr. Nathan left EF 60+/-5%-moderate mitral valve regurgitation, tricuspid regurgitation. 8. Essential hypertension, chronic, present on admission and stable. -continue home losartan and metoprolol 9. Hyperlipidemia, present on admission and stable. -Continue Lipitor 10. Peripheral neuropathy, present on admission and stable. -Continue tramadol 13. Restless leg syndrome, present on admission and stable. -Continue pramipexole 14. Hypothyroidism, acquired, present on admission and stable. -continue levothyroxine 15. GERD, present on admission and stable. -continue omeprazole 16. Insomnia, Present on admission and stable. -continue Trazadone 17. Obesity class 2 with BMI of 36, present on admission and active. -dietary consult ordered regarding nutritional education and information for dietary, lifestyle, exercise, and weight changes. -the patient is at much higher risk for medical and surgical complications due to obesity as it relates to chronic illnesses:, and acute illness and injuries.? The patient's obesity increases the difficulty and complexity of medical and/or surgical interventions, management and increases the chances of poor outcome such as morbidity and mortality as well as impaired wound healing. Code status is full code. COVID negative. DVT prophylaxis with Eliquis. Proxy is Keshav. This patient will be admitted as inpatient and will require greater than 2 midnights of hospital time to treat hyponatremia and diverticulitis.
[2022-09-16] MEDS: FLECAINIDE 100 MG TABLET PO ×2 (08:36→20:34)
[2022-09-16] MEDS: APIXABAN 5 MG TABLET PO ×2 (08:36→20:34)
[2022-09-16] MEDS: MYCOPHENOLATE MOFETIL 500 MG TABLET 1000 MG PO ×2 (08:36→20:34)
[2022-09-16] MEDS: METOPROLOL ER 50 MG TABLET 100 MG PO ×2 (08:36→20:34)
[2022-09-16] MEDS: LOSARTAN 50 MG TABLET PO (08:37)
[2022-09-16] MEDS: POTASSIUM CHLORIDE 20 MEQ/15 ML UDC 40 MEQ PO (11:32)
[2022-09-16] MEDS: BENZONATATE 100 MG CAPSULE PO ×2 (11:33→19:56)
--- NOTE | 2022-09-16 12:23 | PT-IP ANOTE ---
Attempted evaluation but pt has been incontinent of loose stool and needs to be cleaned up before mobility. Notified nursing. Will come back later today for physical therapy.
--- NOTE | 2022-09-16 14:19 | PC.NURSE ---
1200 Wound care nurse came to see patient and changed Left dorsal and medial ankle dressing and Left lower lateral thigh dressing. Patient tolerated dressing change well and denied pain and denied need for pain medication.
--- NOTE | 2022-09-16 14:49 | PT.IIE ---
Current Diagnoses Hypo-osmolality and hyponatremia (09/14/22) Surgical History (Last Reviewed 09/14/22 @ 18:03 by Francy Gannon PA-C) Anesthesia History of foot surgery History of hip replacement (~2010) History of hip replacement (~2012) History of radiofrequency ablation procedure for cardiac arrhythmia (~07/2019) Polyp of nasal sinus Status post hysterectomy with oophorectomy (~1996) Medical History (Last Reviewed 09/15/22 @ 07:46 by Clayton Medina MD) Anemia Asthma Atrial fibrillation by electrocardiography Bullous pemphigoid (~10/2019) Chickenpox Cholelithiasis Chronic kidney disease (CKD) stage G2/A1, mildly decreased glomerular filtration rate (GFR) between 60-89 mL/min/1.73 square meter and albuminuria creatinine ratio less than 30 mg/g (09/06/17) Chronic obstructive pulmonary disease (10/19/16) Class 1 obesity (09/05/16) Diverticulosis of colon (~12/2020) Eczema Environmental allergies (09/05/16) Fatigue due to sleep pattern disturbance Hepatitis B core antibody positive History of torn meniscus of right knee Hyperlipidemia (01/25/11) Hypertension (01/25/11) Hypothyroidism (~2007) Insomnia due to medical condition Measles Morbid obesity with body mass index (BMI) of 40.0 to 49.9 Osteoarthritis (01/25/11) Pacemaker (~05/2021) Pedal edema Persistent atrial fibrillation Pulmonary nodules/lesions, multiple Recurrent sinusitis (~1999) Seasonal allergies Sigmoid diverticulosis Snoring Physical Therapy Inpatient Evaluation/Re-Eval M1 PT/OT-IP Prior Functional Status Start: 09/16/22 17:10 Freq: NEEDED Status: Active Protocol: Document 09/16/22 14:59 DLM (Rec: 09/16/22 17:31 DLM [id number]) Medical Review Prior Functional Status Medical History Reviewed Yes Diet/Fluid Consistency Regular Communication WNL Mobility and Gait Prior to her fall on 08/12/22 she was independent ambulating at home with occasional use of a 4WW. She was ambulating with a cane in the community. She was admitted from [facility] rehab where she has been using a wheelchair due to her 20# weight limit on left LE (femur fx). She has been working on transfers with therapy with slide board and with the FWW. She reports it is difficult for her to keep only 20# on her left LE in standing. She reports increased weakness at SNF for the past week with her feeling sick. Activities of Daily Living and IADL's She was independent before her fall on 08/12/22. Since her fall she has been needing assistance. Social History Household Members spouse Living Arrangements House Number of Floors (Floors) Two Floors Number of Stairs To Enter/Railing? she can stay on main level of house, ramp to enter Home Environment High Toilet,Walk in Shower, Built-In Shower Seat Home Equipment Four Wheel Walker,Straight Cane,Hand Held Shower,Grab Bars Near Toilet,Grab Bars In Shower M2 PT-IP Current Condition Start: 09/16/22 17:10 Freq: NEEDED Status: Active Protocol: Document 09/16/22 14:59 DLM (Rec: 09/16/22 17:31 DL [id number]) Physical Therapy Current Condition Current Condition Evaluation Date 09/16/22 Treatment Diagnosis abdominal pain, impaired mobility/gait Onset Date 09/14/22 M3 PT-IP Subjective Start: 09/16/22 17:10 Freq: NEEDED Status: Active Protocol: Document 09/16/22 14:59 DLM (Rec: 09/16/22 17:31 DLM [id number]) Subjective Physical Therapy Visit Type Type Initial Evaluation Visit Start Time 14:15 Visit Stop Time 14:59 Total Visit Minutes 44 Number of SAWMILL SUPERVISOR Visits 0 Physical Therapy Visit Comments Patient Comments She reports she wants to get up today. She likes to be able to sit up in the wheelchair. She reports the hospital bed and wheelchair are taller than the ones she uses at SNF rehab. Patient Goals she wants to get strong enough to go home M4 PT-IP Mobility and Gait Start: 09/16/22 17:10 Freq: NEEDED Status: Active Protocol: Document 09/16/22 14:59 DLM (Rec: 09/16/22 17:31 DLM [id number]) PT-Bed Mobility Assessment Supine to Sit Supine to Sit Contact Guard Assistance, Minimal Assistance,Head of Bed Elevated,Bedrails Scooting Scooting to Edge of Bed Moderate Assistance PT-Transfer Assessment Equipment Transfer Assistive Device Sliding Board Transfers Transfer Destination Wheelchair Transfer Technique Lateral Scoot Transfer Ability Level of Assist Moderate Assistance,Use of Upper Extremities Comments Mobility Comments Pt's feet can not touch the floor sitting on the edge of the bed which complicates her slide board transfer. Therapist placed slide board while pt independent leans to side. Pt prefers to slide to right side due to left clavicle fracture. She had difficulty sliding today on the bed but did well once fully on the board. Pt up to wheelchair. She propelled the wheelchair in the abbott for exercise. She has an intermittent cough. Gait Assessment Comments Gait Comments not ambulatory at this time due to 20# weight bearing restriction on left LE, femur fx Stair Climbing Assessment Comments Stair Climbing Comments ramp to enter at home PT-Balance Assessment Sitting Balance and Reactions Static Sitting Balance Ability Good Dynamic Sitting Balance Ability Good M5 PT-IP Objective Assessments Start: 09/16/22 17:10 Freq: NEEDED Status: Active Protocol: Document 09/16/22 14:59 DLM (Rec: 09/16/22 17:31 DLM [id number]) Orientation Orientation/Cognition Level of Alertness Alert Orientation Name,Age,Birthday,Month,Date, Year,Day of Week,Place, Situation Language Function Ability No Deficits Noted Safety Awareness Understands Safety Issues Memory Description No Deficits Noted Gross Range of Motion Upper Extremity ROM Assessment Left Impaired Impairments pain left shoulder associated with clavicle fx Lower Extremity ROM Assessment Left Impaired Impairments pain left hip area Strength Upper Extremity Strength Assessment Left Impaired Lower Extremity Strength Assessment Left Impaired Coordination Assessment Gross Coordination Gross Coordination WNL Sensation Assessment Comments Sensation Comments no changes reported by pt Muscle Tone Muscle Tone WNL Yes M6 PT-IP Treatment Start: 09/16/22 17:10 Freq: NEEDED Status: Active Protocol: Document 09/16/22 14:59 DLM (Rec: 09/16/22 17:31 DLM [id number]) Physical Therapy Treatment Education Education Provided Weight Bearing Status,Safety Other Treatments Other Treatment Performed Her Spouse is present during this visit and encourages her M7 PT-IP Assessment and Plan Start: 09/16/22 17:10 Freq: NEEDED Status: Active Protocol: Document 09/16/22 14:59 DLM (Rec: 09/16/22 17:31 DLM [id number]) PT Summary Assessment and Plan Potential Rehabilitation Potential Good Status of Condition at Evaluation Evolving Summary Impairments Pain,Strength,Balance,Bed Mobility,Transfers,Gait, Activity Tolerance Assessment Summary Mishel is alert and resting in bed. She is eager to get up and sit up in the wheelchair. She was able to do a slide board transfer to the wheelchair. Unfortunately, the hospital bed is taller than the wheelchair and going back to bed will be more challenging for her. Discussed with pt that the mechanical lift can be used to get back to bed if she gets fatigued sitting up. She is limited by her 20# weight bearing restriction on her left LE and her left clavicle fracture. She reports she was progressing well in SNF rehab. She agress to return to SNF rehab to get stronger and more independent with her mobility before returning home. Her mobility is somewhat equipment dependent and is more challenging for her at the hospital with the tall bed. Goals Bed Mobility Goal Independent Transfer Goal Minimal Assistance,Slide Board Other Goals Sit-stand with FWW and min assist, TTWB left LE (20# restriction). Transfer bed-chair with FWW and min assist, TTWB left LE. Days to Meet Goals 4 Frequency of Treatment Frequency Of Treatment Once a Day Treatment Plan Physical Therapy Treatment Plan Bed Mobility Training,Transfer Training,Therapeutic Exercise ,Balance Retraining,Discharge Planning,Hot or Cold Pack, Neuromuscular Re-ed Other Recommendations and Next Treatment will not progress to gait at Focus this time due to her 20# weight bearing restriction on left LE and her difficulty maintaining it in standing Precautions Other Precautions left LE wound Weight Bearing Status Weight Bearing Status Touch Down Weight Bearing Allowed Weight Bearing Amount (enter % 20# restriction on left LE due or #) (%) to femur fx WBAT left UE due to clavicle fx Recommendations To Nursing Amount of Assist Needed 1 Person Assist,Mechanical Lift Discharge Recommendations PT Discharge Recommendations SNF Rehab Other Discharge Recommendations return to [facility] rehab before returning home with Spouse Transportation Needs at Discharge Wheelchair/Cabulance
--- NOTE | 2022-09-16 16:01 | OT.IPNOTE ---
Attempted to see pt for OT eval and pt too tired and just wanting to be hoyered back to bed at this time. Pt agreed along with her when medically stable to just go back to [facility] for skilled rehab.
[2022-09-16] MEDS: ACETAMINOPHEN 325 MG TABLET 650 MG PO (16:37)
[2022-09-16] MEDS: LOPERAMIDE 2 MG CAPSULE PO ×2 (18:15→20:47)
[2022-09-16] MEDS: ATORVASTATIN 20 MG TABLET 10 MG PO (20:34)
[2022-09-16] MEDS: MELATONIN 3 MG TABLET 6 MG PO (20:35)
[2022-09-16] MEDS: TRAZODONE 50 MG TABLET PO (20:36)
[2022-09-16] MEDS: PRAMIPEXOLE 0.125 MG TABLET PO (20:36)
[2022-09-16 21:07] LABS: Clostridium Difficile Tox PCR Positive for C. diff (Negative)
[2022-09-17] MEDS: VANCOMYCIN 125 MG CAPSULE PO ×5 (00:12→23:38)
[2022-09-17] MEDS: PIPERACILLIN/TAZO 3.375 GM in SODIUM CHLORIDE 0.9% 100 ML IV ×2 (00:12→09:02)
[2022-09-17] MEDS: BENZONATATE 100 MG CAPSULE PO ×3 (00:12→20:15)
[2022-09-17 05:20] LABS: Add Manual Diff / Slide Review NO; Basophils Absolute Auto 100 /uL (0-100); Basophils Percent Auto 1.1 % (0-2); Eosinophils Absolute Auto 200 /uL (0-450); Eosinophils Percent Auto 2.7 % (2-4); Hematocrit 39.5 % (36-46); Lymphocytes Absolute Auto 900 /uL (1100-4500); Lymphocytes Percent Auto 14.4 % (25-40); Mean Corpuscular Volume 81.8 fL (80-100); Monocytes Absolute Auto 600 /uL (0-900); Monocytes Percent Auto 10.2 % (3-14); Neutrophils Absolute Auto 4500 /uL (1500-7000); Neutrophils Percent Auto 71.6 % (50-75); Platelet Count 210 X10^3/uL (150-400); Red Blood Cell Count 4.82 X10^6/uL (4.0-5.2); Red Cell Distribution Width 17.2 % (11.6-14.8); White Blood Cell Count 6.2 X10^3/uL (4.5-11.0)
[2022-09-17 05:31] LABS: BUN Creatinine Ratio 9.6 (6-22); Blood Urea Nitrogen 8 mg/dL (7-17); Calcium 8.3 mg/dL (8.4-10.2); Carbon Dioxide 24 mmol/L (22-32); Chloride 99 mmol/L (98-107); Estimated Glomerular Filt Rate > 60 mL/min (>60); Glucose 74 mg/dL (80-110); HEMOLYSIS < 15 (0-50); Potassium 3.5 mmol/L (3.4-5.1); Sodium 131 mmol/L (137-145)
[2022-09-17] MEDS: PANTOPRAZOLE DR 20 MG TABLET PO (05:46)
[2022-09-17] MEDS: LEVOTHYROXINE 75 MCG TABLET PO (05:46)
[2022-09-17 05:49] VITALS: BP 135/69; PULSE 60; RESP 16; TEMP 36.3; O2SAT 99
[2022-09-17] MEDS: SODIUM CHLORIDE 0.9% 1,000 ML 50 ML IV (09:03)
[2022-09-17] MEDS: POTASSIUM CHLORIDE 20 MEQ TAB 40 MEQ PO (09:09)
[2022-09-17] MEDS: ACETAMINOPHEN 325 MG TABLET 650 MG PO (09:09)
[2022-09-17] MEDS: FLECAINIDE 100 MG TABLET PO ×2 (09:09→20:17)
[2022-09-17] MEDS: METOPROLOL ER 50 MG TABLET 100 MG PO ×2 (09:10→20:17)
[2022-09-17] MEDS: MYCOPHENOLATE MOFETIL 500 MG TABLET 1000 MG PO ×2 (09:10→20:16)
[2022-09-17] MEDS: LOSARTAN 50 MG TABLET PO (09:10)
[2022-09-17] MEDS: APIXABAN 5 MG TABLET PO ×2 (09:10→20:17)
--- NOTE | 2022-09-17 10:00 | PT.IPTN ---
Current Diagnoses Hypo-osmolality and hyponatremia (09/14/22) Physical Therapy Treatment Note M2 PT-IP Current Condition Start: 09/16/22 17:10 Freq: NEEDED Status: Active Protocol: Document 09/16/22 14:59 DLM (Rec: 09/16/22 17:31 DLM [id number]) Physical Therapy Current Condition Current Condition Evaluation Date 09/16/22 Treatment Diagnosis abdominal pain, impaired mobility/gait Onset Date 09/14/22 M3 PT-IP Subjective Start: 09/16/22 17:10 Freq: NEEDED Status: Active Protocol: Document 09/17/22 10:46 TS (Rec: 09/17/22 11:09 TS [id number]) Subjective Physical Therapy Visit Type Type Treatment Note Visit Start Time 10:00 Visit Stop Time 10:40 Total Visit Minutes 40 Number of STRAIGHTEDGE MACHINE OPERATOR HELPER Visits 1 Physical Therapy Visit Comments Patient Comments Pt found resting in bed, agreeable to PT session. Reports she is feeling a little better today but still feels weak. Patient Goals she wants to get strong enough to go home M4 PT-IP Mobility and Gait Start: 09/16/22 17:10 Freq: NEEDED Status: Active Protocol: Document 09/17/22 10:46 TS (Rec: 09/17/22 11:09 TS [id number]) PT-Bed Mobility Assessment Rolling Type of Rolling Bilateral Level of Assist Standby Assistance Supine to Sit Supine to Sit Standby Assistance,Head of Bed Elevated,Bedrails Sit to Supine Sit to Supine Moderate Assistance,1 Person Assistance Scooting Scooting to Edge of Bed Standby Assistance PT-Transfer Assessment Sit to and From Stand Sit to and from Stand Maximum Assistance,1 Person Assistance,Use of Upper Extremities Comments Mobility Comments Pt found resting in bed, agreeable to PT session. Pt SBA for rolling bilaterally with use of handrails for pericare with DOCUMENT IMPROVEMENT SPECIALIST at start of session. Supine to sit with HOB elevated SBA with use of BUE on handrails. She scooted EOB SBA with use of handrails BUE with feet not quite flat on floor. She performed sit to stands x4 requiring MaxA x1 with awareness of weightbearing precaution for LLE. In standing pt required Fritz-ModA for posterior lean, improved with cues for core/ glute act and upright posture. She became fatigued and could not perform transfer to chair . She lateral stepped EOB to HOB x5 maintaining WBering precautions and required cues for FWW management. Sit to supine ModA for Le's into bed. She required ModA x2 scotting to HOB. Pt was left in room with DOCUMENT IMPROVEMENT SPECIALIST tending to needs. Gait Assessment Comments Gait Comments not ambulatory at this time due to 20# weight bearing restriction on left LE, femur fx and fatigue. Stair Climbing Assessment Comments Stair Climbing Comments ramp to enter at home PT-Balance Assessment Sitting Balance and Reactions Static Sitting Balance Ability Good Dynamic Sitting Balance Ability Good Standing Balance and Reactions Static Standing Balance Ability Poor Dynamic Standing Balance Ability Poor Comments Other Balance Tests/Deviations/Treatment Pt maintains midline in : sitting with use BUE for support and does not demonstrate a flexed posture. In standing she requires cues for core/glute act and upright posture Fritz-ModA x4. M5 PT-IP Objective Assessments Start: 09/16/22 17:10 Freq: NEEDED Status: Active Protocol: Document 09/16/22 14:59 DLM (Rec: 09/16/22 17:31 DLM [id number]) Orientation Orientation/Cognition Level of Alertness Alert Orientation Name,Age,Birthday,Month,Date, Year,Day of Week,Place, Situation Language Function Ability No Deficits Noted Safety Awareness Understands Safety Issues Memory Description No Deficits Noted Gross Range of Motion Upper Extremity ROM Assessment Left Impaired Impairments pain left shoulder associated with clavicle fx Lower Extremity ROM Assessment Left Impaired Impairments pain left hip area Strength Upper Extremity Strength Assessment Left Impaired Lower Extremity Strength Assessment Left Impaired Coordination Assessment Gross Coordination Gross Coordination WNL Sensation Assessment Comments Sensation Comments no changes reported by pt Muscle Tone Muscle Tone WNL Yes M6 PT-IP Treatment Start: 09/16/22 17:10 Freq: NEEDED Status: Active Protocol: Document 09/17/22 10:46 TS (Rec: 09/17/22 11:09 TS [id number]) Physical Therapy Treatment Education Education Provided Weight Bearing Status,Safety M7 PT-IP Assessment and Plan Start: 09/16/22 17:10 Freq: NEEDED Status: Active Protocol: Document 09/17/22 10:46 TS (Rec: 09/17/22 11:09 TS [id number]) PT Summary Assessment and Plan Potential Rehabilitation Potential Good Status of Condition at Evaluation Evolving Summary Impairments Pain,Strength,Balance,Bed Mobility,Transfers,Gait, Activity Tolerance Assessment Summary Gay progressed her bed mobility this session to SBA with BUE support with handrails but requires ModA for LE's back into bed. Sit to stands she requires MaxA for posterior lean and could maintain wbering precautions. She could not perform pivot transfer to chair due to being fatigue after sit to stands x4. PT continues to recommend return to SNF to improve her strength, activity tolerance and functional mobility. Goals Bed Mobility Goal Independent Transfer Goal Minimal Assistance,Slide Board Other Goals Sit-stand with FWW and min assist, TTWB left LE (20# restriction). Transfer bed-chair with FWW and min assist, TTWB left LE. Days to Meet Goals 4 Frequency of Treatment Frequency Of Treatment Once a Day Treatment Plan Physical Therapy Treatment Plan Bed Mobility Training,Transfer Training,Therapeutic Exercise ,Balance Retraining,Discharge Planning,Hot or Cold Pack, Neuromuscular Re-ed Other Recommendations and Next Treatment Pivot transfer to chair, gait Focus if able. Weight Bearing Status Weight Bearing Status Touch Down Weight Bearing Allowed Weight Bearing Amount (enter % 20# restriction on left LE due or #) (%) to femur fx WBAT left UE due to clavicle fx Recommendations To Nursing Amount of Assist Needed 1 Person Assist,Mechanical Lift Discharge Recommendations PT Discharge Recommendations SNF Rehab Other Discharge Recommendations return to [facility] rehab before returning home with Spouse Transportation Needs at Discharge Wheelchair/Cabulance
[2022-09-17] MEDS: POTASSIUM CHLORIDE 20 MEQ/15 ML UDC 40 MEQ PO (11:19)
[2022-09-17] MEDS: ONDANSETRON 4 MG/2 ML INJ IV (11:20)
[2022-09-17 12:00] VITALS: BP 154/73; PULSE 60; RESP 14; TEMP 36.4; O2SAT 100
--- NOTE | 2022-09-17 13:00 | PT.IPNOTE ---
Discussed treatment plan with CRESTER and the patient and will increase frequency to twice a day. Pt testing is now positive for C-diff. Discharge back to SNF delayed for couple of days.
--- NOTE | 2022-09-17 13:10 | CM.DPNOTE ---
DCP Note Discussion with patient and spouse this morning at bedside to review DCP- Patient admits she was very hopeful to return home upon discharge but she and spouse feel it will be safer for patient to return to [facility] before return home. Therapies recommending return to SNF Reviewed who anticipates welcoming patient back, patient will need a yasmine bed in [facility] at this time,likely Monday or Monday JW
--- NOTE | 2022-09-17 13:20 | PT.IPTN ---
Current Diagnoses Hypo-osmolality and hyponatremia (09/14/22) Physical Therapy Treatment Note M2 PT-IP Current Condition Start: 09/16/22 17:10 Freq: NEEDED Status: Active Protocol: Document 09/16/22 14:59 DLM (Rec: 09/16/22 17:31 DLM [id number]) Physical Therapy Current Condition Current Condition Evaluation Date 09/16/22 Treatment Diagnosis abdominal pain, impaired mobility/gait Onset Date 09/14/22 M3 PT-IP Subjective Start: 09/16/22 17:10 Freq: NEEDED Status: Active Protocol: Document 09/17/22 14:07 TS (Rec: 09/17/22 14:30 TS [id number]) Subjective Physical Therapy Visit Type Type Treatment Note Visit Start Time 13:20 Visit Stop Time 14:01 Total Visit Minutes 41 Number of CLAY PREPARATION SUPERVISOR Visits 2 Physical Therapy Visit Comments Patient Comments Pt found resting in bed and agreeable to PT session. She reports that she would like to work with PT again today. Patient Goals she wants to get strong enough to go home M4 PT-IP Mobility and Gait Start: 09/16/22 17:10 Freq: NEEDED Status: Active Protocol: Document 09/17/22 14:07 TS (Rec: 09/17/22 14:30 TS [id number]) PT-Bed Mobility Assessment Supine to Sit Supine to Sit Standby Assistance,Head of Bed Elevated,Bedrails Sit to Supine Sit to Supine Moderate Assistance,1 Person Assistance Scooting Scooting to Edge of Bed Standby Assistance Scooting Up and Down in Bed Maximum Assistance PT-Transfer Assessment Sit to and From Stand Sit to and from Stand Minimal Assistance,Moderate Assistance Equipment Transfer Assistive Device Gait Belt,Front Wheeled Walker Transfers Transfer Destination Wheelchair Transfer Technique Stand Pivot Transfer Ability Level of Assist Minimal Assistance Comments Mobility Comments Pt found resting in bed, agreeable to second treatment session today. Supine to sit SBA with BUE support on handrails. Sit to stand with FWW x1 Fritz, cues for weight forward, BUE support pushing from bed, demonstrates safety awareness of wbering precaution for LLE. Stand pivot transfer to w/c Fritz, cues for FWW management and reaching back for arms of chair for eccentric control. Manual W/C mobility x150' around unit and back inot room , fatiguing last 20'. She performed sit to stand x1 with ModA and required cues for pushing off both arms of chair and weight frward to come into standing. She performed another pivot transfer to bed Fritz and management of IV pole . Sit to supine ModA for LE's into bed. Scooting to HOB MaxA x2 with cues for bending knees and pushing in heels. She was left in bed with call light nearby, spouse in room, RN notified of IV error pole message. Gait Assessment Comments Gait Comments not ambulatory at this time due to 20# weight bearing restriction on left LE, femur fx. Stair Climbing Assessment Comments Stair Climbing Comments ramp to enter at home PT-Balance Assessment Sitting Balance and Reactions Static Sitting Balance Ability Good Dynamic Sitting Balance Ability Good Standing Balance and Reactions Static Standing Balance Ability Fair Dynamic Standing Balance Ability Poor Comments Other Balance Tests/Deviations/Treatment Pt retroleans when intially : coming into standing, improves with cues for upright posture . M5 PT-IP Objective Assessments Start: 09/16/22 17:10 Freq: NEEDED Status: Active Protocol: Document 09/16/22 14:59 DLM (Rec: 09/16/22 17:31 DLM [id number]) Orientation Orientation/Cognition Level of Alertness Alert Orientation Name,Age,Birthday,Month,Date, Year,Day of Week,Place, Situation Language Function Ability No Deficits Noted Safety Awareness Understands Safety Issues Memory Description No Deficits Noted Gross Range of Motion Upper Extremity ROM Assessment Left Impaired Impairments pain left shoulder associated with clavicle fx Lower Extremity ROM Assessment Left Impaired Impairments pain left hip area Strength Upper Extremity Strength Assessment Left Impaired Lower Extremity Strength Assessment Left Impaired Coordination Assessment Gross Coordination Gross Coordination WNL Sensation Assessment Comments Sensation Comments no changes reported by pt Muscle Tone Muscle Tone WNL Yes M6 PT-IP Treatment Start: 09/16/22 17:10 Freq: NEEDED Status: Active Protocol: Document 09/17/22 14:07 TS (Rec: 09/17/22 14:30 TS [id number]) Physical Therapy Treatment Education Education Provided Weight Bearing Status,Safety M7 PT-IP Assessment and Plan Start: 09/16/22 17:10 Freq: NEEDED Status: Active Protocol: Document 09/17/22 14:07 TS (Rec: 09/17/22 14:30 TS [id number]) PT Summary Assessment and Plan Potential Rehabilitation Potential Good Status of Condition at Evaluation Evolving Summary Impairments Pain,Strength,Balance,Bed Mobility,Transfers,Gait, Activity Tolerance Progress Towards Goals Progressing Toward Goals Assessment Summary Due to Dixies increase tolerance for activity increased her visits to twice a day. She progressed her sit to stands this session with decreased assist from MaxA to Fritz x1 from bed to ModA x1 from w/c. She used the manual W/C 150' around unit, became fatigued last 20', requesting back to bed. She progressed to a stand pivot transfer with the FWW x2 maintaining wbering precautions. The hospital bed remains challenging due to how tall it is. PT continues to recommend return to SNF to improve her strength, transfers and functional mobility. Goals Bed Mobility Goal Independent Transfer Goal Minimal Assistance,Slide Board Other Goals Sit-stand with FWW and min assist, TTWB left LE (20# restriction). Transfer bed-chair with FWW and min assist, TTWB left LE. Days to Meet Goals 4 Frequency of Treatment Frequency Of Treatment Twice a Day Treatment Plan Physical Therapy Treatment Plan Bed Mobility Training,Transfer Training,Therapeutic Exercise ,Balance Retraining,Discharge Planning,Hot or Cold Pack, Neuromuscular Re-ed Other Recommendations and Next Treatment Pivot transfer to chair Focus Weight Bearing Status Weight Bearing Status Touch Down Weight Bearing Allowed Weight Bearing Amount (enter % 20# restriction on left LE due or #) (%) to femur fx WBAT left UE due to clavicle fx Recommendations To Nursing Amount of Assist Needed 1 Person Assist,Mechanical Lift Discharge Recommendations PT Discharge Recommendations SNF Rehab Other Discharge Recommendations return to [facility] rehab before returning home with Spouse Transportation Needs at Discharge Wheelchair/Cabulance
--- NOTE | 2022-09-17 16:27 | P.PN_ITS ---
Subjective Subjective Interval history: Less abdominal pain today, only one episode of diarrhea today, wanting to try more of a diet today. C. diff was positive, started on oral vanco. Exam Vital Signs (past 8 hours): - 09/17/22 12:00 Temperature 97.6 F Pulse Rate 60 Respiratory Rate 14 Blood Pressure 154/73 H Pulse Oximetry 100 Oxygen Flow Rate 0 Oxygen Delivery Method Room Air Oxygen Flow Rate 0 Narrative Exam Narrative: GEN: no acute distress, very pleasant. Speech normal. HEENT: moist mucous membranes, anicteric sclera. NECK: trachea midline, no JVD CV: regular rate and rhythm, no murmurs PULM: clear bilaterally, no wheezing. ABD: soft, non-tender, non-distended, no organomegaly. EXT: warm and well perfused with no edema NEURO: awake, alert, oriented, no focal deficits Objective Labs 09/17/22 05:05 09/17/22 05:05 Labs: Laboratory Results - last 24 hr 09/16/22 09/17/22 09/17/22 17:45 05:05 05:05 WBC 6.2 RBC 4.82 Hgb 13.0 Hct 39.5 MCV 81.8 MCH 27.0 MCHC 33.0 RDW 17.2 H Plt Count 210 Neut % (Auto) 71.6 Lymph % (Auto) 14.4 L [place] % (Auto) 10.2 Eos % (Auto) 2.7 Baso % (Auto) 1.1 Neut # (Auto) 4500 Lymph # (Auto) 900 L [place] # (Auto) 600 Eos # (Auto) 200 Baso # (Auto) 100 Sodium 131 L Potassium 3.5 Chloride 99 Carbon Dioxide 24 BUN 8 Creatinine 0.83 Estimated GFR > 60 BUN/Creatinine Ratio 9.6 Glucose 74 L Calcium 8.3 L C. difficile Tox (PCR) Positive for c. diff H [facility] Medical History Anemia Asthma Atrial fibrillation by electrocardiography Bullous pemphigoid (~10/2019) Chickenpox Cholelithiasis Chronic kidney disease (CKD) stage G2/A1, mildly decreased glomerular filtration rate (GFR) between 60-89 mL/min/1.73 square meter and albuminuria creatinine ratio less than 30 mg/g (09/06/17) Chronic obstructive pulmonary disease (10/19/16) Class 1 obesity (09/05/16) Diverticulosis of colon (~12/2020) Eczema Environmental allergies (09/05/16) Fatigue due to sleep pattern disturbance Hepatitis B core antibody positive History of torn meniscus of right knee Hyperlipidemia (01/25/11) Hypertension (01/25/11) Hypothyroidism (~2007) Insomnia due to medical condition Measles Morbid obesity with body mass index (BMI) of 40.0 to 49.9 Osteoarthritis (01/25/11) Pacemaker (~05/2021) Pedal edema Persistent atrial fibrillation Pulmonary nodules/lesions, multiple Recurrent sinusitis (~1999) Seasonal allergies Sigmoid diverticulosis Snoring Surgical History Anesthesia History of foot surgery History of hip replacement (~2010) History of hip replacement (~2012) History of radiofrequency ablation procedure for cardiac arrhythmia (~07/2019) Polyp of nasal sinus Status post hysterectomy with oophorectomy (~1996) Family History Father Heart disease Hypertension Mother Heart disease Stroke Hypertension Diabetes mellitus Dementia Grandfather Cancer Grandmother No problems noted. Grandfather No problems noted. Grandmother No problems noted. Brother Pacemaker Social History marital status: household members: spouse occupational status: previously employed Smoking Status: Former smoker alcohol intake: current substance use type: does not use Assessment & Plan Assessment & Plan narrative: 1. Hypovolemic hyponatremia, present on admission and improving. -Na 114 in ED, previously 130 one month ago, has improved to 131 today. Now tolerating oral intake with improved diarrhea. Can stop IV fluids, she lost IV access today. -if continued improvement / stability tomorrow without IV fluids can return to SNF. 2. C. diff colitis, possible diverticulitis, with N/V, present on admission and improving. - presenting diverticulitis may have been C. diff colitis, but with + c. diff and loss of IV access and previous improvement will continue augmentin now for possible diverticulitis along with oral vanco for C. diff. 3. Recent hip fracture, present on admission and active -OOB, PT and OT eval. Came from SNF (wants to go home). 4. Left thigh and leg wounds, present on admission and active. -wound care will change dressings today. 5. Bullous pemphigoid, chronic, present on admission and stable. -patient is unable to tolerate diuretics as they cause pemphigoid/ bollous flare/outbreaks. -continue CellCept 6. Paroxysmal atrial fibrillation, w/SSS s/p ablation and pacemaker placement (05/2021), history of bilateral PE (2021) present on admission and stable. -Continue Eliquis 5 mg b.i.d. (Failed Xeralto) -Managed by Cardiology -continue flecainide -Pt on tele -last Echo 02/28/2019 Dr. Nathan left EF 60+/-5%-moderate mitral valve regurgitation, tricuspid regurgitation. 7. Essential hypertension, chronic, present on admission and stable. -continue home losartan and metoprolol 8. Hyperlipidemia, present on admission and stable. -Continue Lipitor 9. Peripheral neuropathy, present on admission and stable. -Continue tramadol 10. Restless leg syndrome, present on admission and stable. -Continue pramipexole 11. Hypothyroidism, acquired, present on admission and stable. -continue levothyroxine 12. GERD, present on admission and stable. -continue omeprazole 13. Insomnia, Present on admission and stable. -continue Trazadone 14. Obesity class 2 with BMI of 36, present on admission and active. -dietary consult ordered regarding nutritional education and information for tary, lifestyle, exercise, and weight changes. -the patient is at much higher risk for medical and surgical complications due to obesity as it relates to chronic illnesses:, and acute illness and injuries.? The patient's obesity increases the difficulty and complexity of medical and/or surgical interventions, management and increases the chances of poor outcome such as morbidity and mortality as well as impaired wound healing. Code status is full code. COVID negative. DVT prophylaxis with Eliquis. Proxy is Keshav. Dispo: probable return to SNF tomorrow if tolerating oral intake Time Spent With Patient Critical Care time: I spent a total of [] minutes of critical care time on this patient's care today; this time is exclusive of procedural time.
[2022-09-17 16:50] VITALS: BP 143/62; PULSE 63; RESP 17; TEMP 35.6; O2SAT 98
[2022-09-17] MEDS: MELATONIN 3 MG TABLET 6 MG PO (20:15)
[2022-09-17] MEDS: AMOXICILLIN/CLAV 875/125 MG 1 TAB PO (20:15)
[2022-09-17] MEDS: PRAMIPEXOLE 0.125 MG TABLET PO (20:15)
[2022-09-17] MEDS: TRAZODONE 50 MG TABLET PO (20:15)
[2022-09-17] MEDS: ATORVASTATIN 20 MG TABLET 10 MG PO (20:16)
[2022-09-17 20:17] VITALS: BP 143/62; PULSE 63
[2022-09-17] MEDS: TRAMADOL 50 MG TABLET PO (20:17)
[2022-09-17 20:20] VITALS: BP 158/69; PULSE 61; RESP 18; TEMP 36.3; O2SAT 97
[2022-09-17 20:35] VITALS: BP 158/69; PULSE 61
[2022-09-18 04:54] LABS: BUN Creatinine Ratio 7.8 (6-22); Blood Urea Nitrogen 6 mg/dL (7-17); Calcium 8.6 mg/dL (8.4-10.2); Carbon Dioxide 25 mmol/L (22-32); Chloride 99 mmol/L (98-107); Estimated Glomerular Filt Rate > 60 mL/min (>60); Glucose 82 mg/dL (80-110); HEMOLYSIS < 15 (0-50); Potassium 3.7 mmol/L (3.4-5.1); Sodium 132 mmol/L (137-145)
[2022-09-18] MEDS: PANTOPRAZOLE DR 20 MG TABLET PO (05:10)
[2022-09-18] MEDS: LEVOTHYROXINE 75 MCG TABLET PO (05:10)
[2022-09-18] MEDS: VANCOMYCIN 125 MG CAPSULE PO ×2 (05:10→11:07)
[2022-09-18 06:00] VITALS: BP 138/66; PULSE 67; RESP 18; TEMP 36.3; O2SAT 98
[2022-09-18 07:45] VITALS: BP 156/76; PULSE 60; RESP 20; TEMP 36.4; O2SAT 99
[2022-09-18 09:02] VITALS: BP 156/76
[2022-09-18] MEDS: AMOXICILLIN/CLAV 875/125 MG 1 TAB PO (09:02)
[2022-09-18] MEDS: MYCOPHENOLATE MOFETIL 500 MG TABLET 1000 MG PO (09:02)
[2022-09-18] MEDS: LOSARTAN 50 MG TABLET PO (09:02)
[2022-09-18] MEDS: METOPROLOL ER 50 MG TABLET 100 MG PO (09:02)
[2022-09-18] MEDS: FLECAINIDE 100 MG TABLET PO (09:02)
[2022-09-18] MEDS: APIXABAN 5 MG TABLET PO (09:06)
--- NOTE | 2022-09-18 10:04 | P.DS_ITS ---
History of Present Illness History of Present Illness Date Patient Seen: 09/18/22 Time Patient Seen: 10:04 Chief complaint: Abd pain, hx gallstones Narrative: Per admitting provider, Mishel Reeder is a 72-year-old female?former smoker with history of chronic iron def anemia, paroxysmal atrial fibrillation on eliquis-post ablation with recent pacemaker placement 05/03/2021, SSS, Hx of Domenic PE (2021), COPD, CKD stage G2/A1, hyperlipidemia, hypothyroidism, peripheral neuropathy,? morbid obesity, YONI on cpap, insomnia, OA, bollous pemphigoid on CellCept who presents from [facility] with aucte onset NV and sodium of 114. Patient says she has been vomiting up to 10x per day for the past few days and feels like she may have picked up a bug. She also notes left sided abd pain. She denies neurologic symptoms including headache, dizziness, or seizures. On the floor patient says her nausea is somewhat better and she is trying some soup. Discharge Providers Provider Date of admission: 09/14/22 15:55 Discharge Date: 09/18/22 Primary care physician: Shira Corbin DO Consults: 09/15/22 16:33 Consult to Physical Therapy Evaluate & Treat Comment: discharge eval Physician Instructions: Evaluate and Treat 09/15/22 16:34 Consult to Occupational Therapy Evaluate & Treat Comment: discharge eval Physician Instructions: Evaluate and treat 09/16/22 12:06 Consult to Physical Therapy Evaluate & Treat Comment: discharge planning (cam from snf) Physician Instructions: Evaluate and Treat 09/16/22 12:07 Consult to Occupational Therapy Evaluate & Treat Comment: discharge planning (came from snf) Physician Instructions: Evaluate and treat Discharge provider: Jaime Sung DO Summary Hospital Course Discharge Diagnosis: 1. Hypovolemic hyponatremia, present on admission and improving. 2. C. diff colitis, possible diverticulitis, with N/V, present on admission and improving. 3. Recent hip fracture, present on admission and active 4. Left thigh and leg wounds, present on admission and active. 5. Bullous pemphigoid, chronic, present on admission and stable. 6. Paroxysmal atrial fibrillation, w/SSS s/p ablation and pacemaker placement (05/2021), history of bilateral PE (2021) present on admission and stable. 7. Essential hypertension, chronic, present on admission and stable. 8. Hyperlipidemia,? present on admission and stable. 9. Peripheral neuropathy,? present on admission and stable. 10. Restless leg syndrome,? present on admission and stable. 11. Hypothyroidism, acquired,? present on admission and stable. 12. GERD,? present on admission and stable. 13. Insomnia,? Present on admission and stable. 14. Obesity class 2 with BMI of 36, present on admission and active. Hospital Course: This is a 72 year old female who presented with nausea, vomiting and abdominal pain from [facility]. On admission assessment she was found to be severely hyponatremic with sodium of 114, this improved to normal with initiation of fluids. She also had appearance of diverticulitis on initial imaging and start on empiric antibiotics with zosyn. She continued to improve, but had profound diarrhea. C. diff testing was performed and was positive. After initiation of oral vancomycin her diarrhea and abdominal pain improved. It is not entirely maksim ar if C. difficile was a result of initial antibiotics or was present on admission, but seems likely that it was given improvement with treatment. She will continue on treatment for possible diverticulitis with amoxicillin - pot clavulanate and oral vancomycin for her C. diff. She was discharged to return to [facility] for continued therapies after recent femur fracture, at the time of discharge sodium had improved to 132 off of fluids for 24 hours and her diarrhea had resolved. She was eating and tolerating a diet without difficulty. the patient is at much higher risk for medical and surgical complications due to obesity as it relates to chronic illnesses:, and acute illness and injuries.? T he patient's obesity increases the difficulty and complexity of medical and/or surgical interventions, management and increases the chances of poor outcome such as morbidity and mortality as well as impaired wound healing. Time Spent with Patient Time spent: Greater than 30 minutes Exam Vital Signs (past 8 hours): - 09/18/22 06:00 09/18/22 07:45 09/18/22 09:02 Temperature 97.3 F L 97.6 F Pulse Rate 67 60 Respiratory Rate 18 20 Blood Pressure 138/66 156/76 H 156/76 H Pulse Oximetry 98 99 Oxygen Flow Rate 0 Oxygen Delivery Method Room Air Oxygen Flow Rate 0 Narrative Exam Narrative: GEN: no acute distress, very pleasant. Speech normal. HEENT: moist mucous membranes, anicteric sclera. NECK: trachea midline, no JVD CV: regular rate and rhythm, no murmurs PULM: clear bilaterally, no wheezing. ABD: soft, non-tender, non-distended, no organomegaly. EXT: warm and well perfused with no edema NEURO: awake, alert, oriented, no focal deficits Objective Labs 09/17/22 05:05 09/18/22 04:30 Labs: Laboratory Results - last 24 hr 09/18/22 04:30 Sodium 132 L Potassium 3.7 Chloride 99 Carbon Dioxide 25 BUN 6 L Creatinine 0.77 Estimated GFR > 60 BUN/Creatinine Ratio 7.8 Glucose 82 Calcium 8.6 [facility] Medical History Anemia Asthma Atrial fibrillation by electrocardiography Bullous pemphigoid (~10/2019) Chickenpox Cholelithiasis Chronic kidney disease (CKD) stage G2/A1, mildly decreased glomerular filtration rate (GFR) between 60-89 mL/min/1.73 square meter and albuminuria creatinine ratio less than 30 mg/g (09/06/17) Chronic obstructive pulmonary disease (10/19/16) Class 1 obesity (09/05/16) Diverticulosis of colon (~12/2020) Eczema Environmental allergies (09/05/16) Fatigue due to sleep pattern disturbance Hepatitis B core antibody positive History of torn meniscus of right knee Hyperlipidemia (01/25/11) Hypertension (01/25/11) Hypothyroidism (~2007) Insomnia due to medical condition Measles Morbid obesity with body mass index (BMI) of 40.0 to 49.9 Osteoarthritis (01/25/11) Pacemaker (~05/2021) Pedal edema Persistent atrial fibrillation Pulmonary nodules/lesions, multiple Recurrent sinusitis (~1999) Seasonal allergies Sigmoid diverticulosis Snoring Surgical History Anesthesia History of foot surgery History of hip replacement (~2010) History of hip replacement (~2012) History of radiofrequency ablation procedure for cardiac arrhythmia (~07/2019) Polyp of nasal sinus Status post hysterectomy with oophorectomy (~1996) Family History Father Heart disease Hypertension Mother Heart disease Stroke Hypertension Diabetes mellitus Dementia Grandfather Cancer Grandmother No problems noted. Grandfather No problems noted. Grandmother No problems noted. Brother Pacemaker Social History marital status: household members: spouse occupational status: previously employed Smoking Status: Former smoker alcohol intake: current substance use type: does not use Discharge Plan Discharge Plan Patient Disposition: SNF Transfer to: [facility] Healthcare Provider Discharge Comment: 72 F admitted with hyponatremia, found to have C. diff colitis, also possible diverticulitis as well on dual antibiotic treatment. Should remain on enhanced contact precautions at [facility]. Returning to SNF for continued therapies after femur fracture. Discharge orders & Medications Prescriptions: New loperamide 2 mg Capsule 2 mg PO QID PRN (Reason: Diarrhea) 7 Days Qty: 10 0RF vancomycin 125 mg Capsule 125 mg PO Q6H 10 Days Qty: 40 0RF amoxicillin-pot clavulanate 875-125 mg Tablet 1 tab PO BID 7 Days Qty: 14 0RF Continued cyanocobalamin (vitamin B-12) 1,000 MCG tablet extended release 1,000 mcg PO DAILY Qty: 0 flecainide 50 mg tablet 100 mg PO BID Eliquis 5 mg tablet 5 mg PO BID Qty: 120 2RF pramipexole 0.125 mg tablet 0.125 mg PO BEDTIME Qty: 90 1RF potassium chloride 10 mEq tablet,ER particles/crystals 10 meq PO BEDTIME Patient Comments: TAKE ONE TABLET BY MOUTH ONE TIME DAILY. metoprolol succinate 50 mg tablet extended release 24 hr 100 mg PO BID albuterol sulfate [Ventolin HFA] 90 mcg/actuation HFA aerosol inhaler 2 - 4 puff inhalation Q4H PRN (Reason: Shortness Of Breath) Qty: 8.5 0RF ferrous sulfate 325 mg (65 mg iron) tablet 325 mg PO Q OTHER DAY mycophenolate mofetil 500 mg tablet 1,000 mg PO BID Patient Comments: TAKE TWO TABLETS BY MOUTH TWICE DAILY acetaminophen 325 mg Tablet 650 mg PO Q6H PRN (Reason: Pain (Scale Score 1-3)) atorvastatin 10 mg tablet 10 mg PO BEDTIME melatonin 3 mg Tablet 3 mg PO BEDTIME PRN (Reason: Insomnia) levothyroxine 75 mcg Tablet 75 mcg PO DAILY Rx Instructions: does not take Monday ondansetron HCl 4 mg/5 mL Solution 4 mg PO Q4H PRN (Reason: Nausea) benzonatate 100 mg Capsule 100 mg PO Q6H PRN (Reason: Cough) calcium carbonate-vitamin D3 200 mg (500 mg) -400 unit Tablet 1 tab PO DAILY guaifenesin [Mucinex] 600 mg Tablet Extended Release 12hr 600 mg PO Q12H PRN (Reason: Congestion) d-mannose 500 mg Capsule 500 mg PO DAILY tramadol 50 mg tablet 50 mg PO TID PRN (Reason: Pain (Scale Score 7-10)) 30 Days Qty: 30 0RF oxycodone 10 mg tablet 10 mg PO Q6HR PRN (Reason: Pain, Severe (7-10)) 30 Days Qty: 30 0RF omeprazole magnesium [Prilosec OTC] 20 mg Tablet,Delayed Release (Dr/Ec) 20 mg PO DAILY losartan 50 mg tablet 50 mg PO DAILY Follow up/Referrals: Shira Corbin DO [Primary Care Provider] - Discharge Health Status Health Concerns: C. difficile Colitis Precautions: Contact Diet/Activity/Treatments Diet: Diet as Tolerated Liquid consistency: Normal/Thin Food texture: Regular Activity: As tolerated Special Rehabilitation Services Reason for rehabilitation: Post-operative therapy Rehab type: Physical therapy and Occupational therapy Visit Report/Discharge Packet Stand Alone Forms: Patient Portal/API Discharge Data Primary Care Provider: Shira Corbin
--- NOTE | 2022-09-18 10:46 | CM.DPC ---
DCP Discharge SNF Per MD, pt medically stable to d/c back to [facility] for rehab today and no identified barriers to discharge. Per RN and TOPOGRAPHICAL ENGINEER, pt aware of discharge to SNF today and agreeable and spouse bedside as well. CARIDAD called [facility] admissions and confirmed they can accept today and provide transport around 1200. SW faxed signed med list, scripts; and MD orders and no PASRR needed. COVID swab orders placed and RN kindly getting updated swab. Awaiting d/c summary to be signed. CARIDAD provided RN with number to call report at [facility] and updated manager social media and [employer]. Plan: Patient to d/c back to [facility] rehab today via facility van 1200 prior to safe return home with spouse and likely HH. ALESSANDRA Sandoval
--- NOTE | 2022-09-18 11:04 | PT-IP ANOTE ---
Attempted to see pt twice this AM, pt refused PT due to upcoming discharge to rehab.
[2022-09-18 11:37] LABS: COVID19 -Nasal RAPID Negative (Negative)
[2022-09-18 12:00] VITALS: BP 155/78; PULSE 60; RESP 21; TEMP 36.2; O2SAT 97
[2022-09-20 11:57] LABS: C difficie Toxins A and B, EIA Negative (Negative)
== END 2022-09-18 12:15 | DRG 641 ==
LOC: ED 15:40 → AC 15:59
PROVIDERS: Emergency Medicine; Hospitalist; Internal Medicine; Admitting Provider Student in an Organized Health Care Education/Training Program; Emergency Provider Student in an Organized Health Care Education/Training Program; PCP Family Medicine; Referring Provider Student in an Organized Health Care Education/Training Program; Visit Provider Student in an Organized Health Care Education/Training Program
DX: E87.1 Hypo-osmolality and hyponatremia (principal); L12.0 Bullous pemphigoid; A04.72 Enterocolitis due to Clostridium difficile, not specified as recurrent; K57.32 Diverticulitis of large intestine without perforation or abscess without bleeding; I48.0 Paroxysmal atrial fibrillation; I10 Essential (primary) hypertension; G62.9 Polyneuropathy, unspecified; G25.81 Restless legs syndrome; E78.5 Hyperlipidemia, unspecified; E03.9 Hypothyroidism, unspecified; K21.9 Gastro-esophageal reflux disease without esophagitis; G47.00 Insomnia, unspecified; E66.9 Obesity, unspecified; E86.1 Hypovolemia; D64.9 Anemia, unspecified; Z68.36 Body mass index [BMI] 36.0-36.9, adult; Z95.0 Presence of cardiac pacemaker; Z87.891 Personal history of nicotine dependence; Z20.822 Contact with and (suspected) exposure to COVID-19; Z86.718 Personal history of other venous thrombosis and embolism; Z79.01 Long term (current) use of anticoagulants
CPT/HCPCS: 0241U; 36415; 36592; 74177; 80048; 80053; 83690; 83735; 85025; 85610; 87324; 87493; 87635; 93005; 93010; 96365; 96367; 96368; 97110; 97162; 97530; 99284; C9803; J2405; J2543; J3475; Q9967

== ENCOUNTER → 2022-09-23 12:55 | Outpatient (CLI) | payer MEDICARE, SELFPAY ==
[2022-09-16 21:20] VITALS: BMI 36.6
== END ==
PROVIDERS: PCP Family Medicine; Referring Provider Emergency Medicine; Visit Provider Nurse Practitioner Family
DX: S81.802A Unspecified open wound, left lower leg, initial encounter (principal); T81.89XA Other complications of procedures, not elsewhere classified, initial encounter
CPT/HCPCS: 99212

== ENCOUNTER → 2022-09-30 10:51 | Outpatient (CLI) | payer MEDICARE, SELFPAY ==
[2022-09-16 21:20] VITALS: BMI 36.6
== END ==
PROVIDERS: PCP Family Medicine; Referring Provider Family Medicine; Visit Provider Nurse Practitioner Family
DX: S71.102A Unspecified open wound, left thigh, initial encounter (principal); T81.89XA Other complications of procedures, not elsewhere classified, initial encounter; L12.0 Bullous pemphigoid; R60.9 Edema, unspecified; Z79.01 Long term (current) use of anticoagulants
CPT/HCPCS: 11042

== ENCOUNTER → 2022-10-05 15:37 | Outpatient (CLI) | payer MEDICARE, SELFPAY ==
[2022-09-16 21:20] VITALS: BMI 36.6
[2022-10-05 16:56] LABS: BUN Creatinine Ratio 17.9 (6-22); Blood Urea Nitrogen 12 mg/dL (7-17); Calcium 9.2 mg/dL (8.4-10.2); Carbon Dioxide 29 mmol/L (22-32); Chloride 97 mmol/L (98-107); Estimated Glomerular Filt Rate > 60 mL/min (>60); Glucose 83 mg/dL (80-110); HEMOLYSIS < 15 (0-50); Potassium 3.8 mmol/L (3.4-5.1); Sodium 134 mmol/L (137-145)
== END ==
PROVIDERS: PCP Family Medicine; Referring Provider Family Medicine; Visit Provider Family Medicine
DX: E87.1 Hypo-osmolality and hyponatremia (principal)
CPT/HCPCS: 36415; 80048

== ENCOUNTER → 2022-10-07 12:49 | Outpatient (CLI) | payer MEDICARE, SELFPAY ==
[2022-09-16 21:20] VITALS: BMI 36.6
== END ==
PROVIDERS: PCP Family Medicine; Referring Provider Family Medicine; Visit Provider Nurse Practitioner Family
DX: S81.802A Unspecified open wound, left lower leg, initial encounter (principal); L97.822 Non-pressure chronic ulcer of other part of left lower leg with fat layer exposed; L12.0 Bullous pemphigoid; Z79.01 Long term (current) use of anticoagulants; Z95.0 Presence of cardiac pacemaker
CPT/HCPCS: 99213

== ENCOUNTER → 2022-10-14 10:38 | Outpatient (CLI) | payer OTHER, MEDICARE, SELFPAY ==
[2022-09-16 21:20] VITALS: BMI 36.6
== END ==
PROVIDERS: PCP Family Medicine; Referring Provider Family Medicine; Visit Provider Nurse Practitioner Family
DX: L97.822 Non-pressure chronic ulcer of other part of left lower leg with fat layer exposed (principal); L12.0 Bullous pemphigoid; R60.0 Localized edema; I10 Essential (primary) hypertension; Z79.01 Long term (current) use of anticoagulants
CPT/HCPCS: 97597

== ENCOUNTER → 2022-10-21 10:34 | Outpatient (CLI) | payer OTHER, MEDICARE, SELFPAY ==
[2022-09-16 21:20] VITALS: BMI 36.6
--- NOTE | 2022-10-21 | OV.WND_ITS ---
Progress Note Details Patient Name: Mishel Reeder Patient Number: [id number] Clinician: Essence Saunders R.N. Patient Date of : 1950 Physician / Lifestyle Coordinator: Nica Borden [facility] Patient SUBJECTIVE Chief Complaint This information was obtained from the patient, chart Wound to left lower leg. Allergies Thiazides (Severity: Severe, Reaction: Triggers Bullous Pemphigoid), furosemide (Severity: Severe, Reaction: Triggers Bullous Pemphigoid), spironolactone (Severity: Severe, Reaction: Triggers Bullous Pemphigoid), adhesive, foam bandage (Reaction: (Optifoam) skin irritation/inflammation) HPI This information was obtained from the patient History of CHF, A-fib, pacemaker, chronic anticoagulation, CKD, HTN, pulmonary embolism, chronic lower extremity edema, intermittent cellulitis and bullous pemphigoid with frequent episodes of cellulitis. She gets pemphigoid breakouts, bilateral lower extremities with any sort of friction and certain dressings including conform gauze and adhesives. She also states diuretics unfortunately give her bullous flare. Wound #7 Left Leg is an acute full Thickness Bullous Pemphigoid. Initially noticed the wound 04/18/2022. Wound almost heals and then unfortunately blisters over again. She believes the wound is better. Denies any fever, chills. Denies odor, purulent drainage from the wound. Chronic non pitting pedal edema bilaterally. She is elevating her feet as much as possible but cannot take diuretics or wear compression stockings. Follows with cardiology PCP Dr. Corbin 08/19/2022 Doppler Right pedal and post tibial biphasic pulses 08/05/2022 Doppler Right pedal biphasic, post tib triphasic. Left biphasic pedal and post tib 11/19/2021 ZAC Left good waveform, unable to get reading. Right 1.02. 11/19/2021 Doppler Biphasic pedal, post tibial pulses bilaterally. Pedal pulses 3+ easily palpable bilaterally. 11/12/2021 Vascular US. IMPRESSION: No left lower extremity DVT. Small Noe's cyst. Dressings are not being changed as recommended. Nursing to call the SNF to ensure they have the proper instructions. Her agrees to change the dressing if not done as recommended. Medical History This information was obtained from the patient Patient has a medical history of: Anemia Asthma Atrial fibrillation Bullous Pemphigoid Chicken Pox Cholelithiasis Chronic Kidney Disease Chronic Obstructive Pulmonary Disease (COPD) Eczema Diverticulitis Hepatitis B core antibody positive hyperlipidemia Hypertension Hypothyroidism Insomnia Measles Pacemaker Pulmonary Nodules/ lesions multiple Recurrent Sinusitis Sigmoid diverticulosis pulmonary embolism C. difficile (August 2022) Surgical History This information was obtained from the patient Patient has a surgical history of: Foot surgery Bilat Hip Replacement Bilat Polyp removal, nasal sinus Hysterectomy with oophorectomy Additional Information Does patient have a history of Cancer? Yes? Complete all questions.: No OBJECTIVE Wound Assessment(s) Wound #7 Left Leg is an acute Full Thickness Bullous Pemphigoid and has received a status of Not Healed. Initial wound encounter measurements are 1cm length x 0.9cm width x 0.1cm depth, with an area of 0.9 sq cm and a volume of 0.09 cubic cm. Adipose is exposed. No tunneling has been noted. No sinus tract has been noted. No undermining has been noted. There is a small amount of serous drainage noted which has no odor. The patient reports a wound pain of level 0/10. The wound margin is attached. Wound bed has Yes epithelialization, No eschar, Yes slough, Yes bright red, firm granulation. The periwound skin moisture is normal. The periwound skin exhibited: Edema, Hemosiderosis. The periwound skin did not exhibit: Erythema. The temperature of the periwound skin is WNL. Periwound skin does not exhibit signs or symptoms of infection. Local Pulse is Doppler. Vitals Height/Length: 65 in (165.1 cm), Weight: 207.1 lbs (94.14 kgs), BMI: 34.5, Temperature: 97.9 ?F (36.61 ?C), Pulse: 64 bpm, Respiratory Rate: 18 breaths/min, Blood Pressure: 149/74 mmHg, Pulse Oximetry: 97 %. Physical Exam Constitutional Vital signs reviewed and noted. Blood pressure normal. Pulse rate regular. Afebrile. Cooperative, comfortable, in no acute distress. in a wheelchair. Alert and oriented X 3. Well nourished. Respiratory: normal respiratory effort, able to speak in complete sentences and no use of accessory muscles. Cardiovascular: pedal edema bilaterally. Integumentary (Hair, Skin) see wound description. Psychiatric: Judgement and insight: Normal affect with normal thought pattern. Orientation to time, place and person: Normal affect with normal thought pattern. Mood and affect: Normal affect with normal thought pattern. Additional Information The patient's potential to heal is: fair. 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 Tolerated debridement without difficulty. Wound has improved as evidenced by measurements. Wound seems to be healing quickly. Puraply approved however deferred pending wound appearance at next visit. No evidence of infection today. No indication for antibiotics. Chronic non pitting pedal edema bilaterally. Continue with elevation as much as possible. The following factors have been identified that may impair wound healing: Devitalized tissue Lower leg edema Reduced mobility Advanced age Bullous disease Goals: Remove devitalized tissue in the wound that can inhibit wound healing. Minimize edema. Manage comorbidities. Wound closure PROCEDURES Wound #7 Wound #7 (Bullous Pemphigoid) is located on the left leg. A selective debridement with a total area debrided of 0.9 sq cm was performed by Nica Boredn FNP-C. Dermis and Epidermis were removed along with devitalized tissue: slough. The following instrument(s) were used: curette. Pain control was achieved using EMLA lidocaine/prilocaine 2.5%/2.5%. A time out was not conducted prior to the start of the procedure. A minimal amount of bleeding was controlled with pressure. The procedure was tolerated well with a pain level of 0 throughout and a pain level of 0 following the procedure. Post Debridement Measurements: 1cm length x 0.9cm width x 0.1cm depth; with an area of 0.9 sq cm and a volume of 0.09 cubic cm; PLAN Wound Orders: Wound #7 Left Leg Anesthetic Topical Xylocaine to wound bed - In clinic. Hygiene May shower - Protect from shower water, with waterproof covering. Cleanser Cleanse Wound with normal saline Dressings Primary dressing - Adaptic. Cover and secure with - ABD pad secured with conform wrap gauze and netting. Please use conform wrap gauze instead of Kerlix/gauze bandage roll as it irritates patient's skin. Change Dressing - [facility]- please change dressing Monday or Monday. Additional Orders: Other Instructions: - [facility]- please change dressing Monday or Monday. Follow-Up Appointments Return Appointment - One week. Other information: If you develop fever, chills, increased pain, drainage, redness or swelling please call our office. If after hours, respond to the ER. Should you experience any significant changes in your wound(s) or have any questions regarding your home care instructions please contact the wound center @ [phone]. If after hours, contact your primary care physician or go to the hospital emergency room. Scribing Attestation I attest, as the nurse, that I scribed these orders for the physician. Electronic Signature(s) Signed By: Date: Nica Borden 10/21/2022 12:51:51 (PT) Entered By: Nica Borden on 10/21/2022 12:51:29 (PT)
== END ==
PROVIDERS: PCP Family Medicine; Referring Provider Emergency Medicine; Visit Provider Nurse Practitioner Family
DX: L12.0 Bullous pemphigoid (principal); L97.822 Non-pressure chronic ulcer of other part of left lower leg with fat layer exposed; R60.9 Edema, unspecified; Z79.01 Long term (current) use of anticoagulants; Z95.0 Presence of cardiac pacemaker; Z86.718 Personal history of other venous thrombosis and embolism
CPT/HCPCS: 97597

== ENCOUNTER → 2022-10-28 10:12 | Outpatient (CLI) | payer MEDICARE, SELFPAY ==
[2022-09-16 21:20] VITALS: BMI 36.6
== END ==
PROVIDERS: PCP Family Medicine; Referring Provider Family Medicine; Visit Provider Nurse Practitioner Family
DX: L12.0 Bullous pemphigoid (principal); L97.821 Non-pressure chronic ulcer of other part of left lower leg limited to breakdown of skin; R60.0 Localized edema; Z79.01 Long term (current) use of anticoagulants; Z86.718 Personal history of other venous thrombosis and embolism; M79.605 Pain in left leg
CPT/HCPCS: 99213

== ENCOUNTER → 2022-11-04 11:52 | Outpatient (CLI) | payer OTHER, MEDICARE, SELFPAY ==
[2022-09-16 21:20] VITALS: BMI 36.6
== END ==
PROVIDERS: PCP Family Medicine; Referring Provider Emergency Medicine; Visit Provider Nurse Practitioner Family
DX: L12.0 Bullous pemphigoid (principal); L97.822 Non-pressure chronic ulcer of other part of left lower leg with fat layer exposed; R60.9 Edema, unspecified; Z79.01 Long term (current) use of anticoagulants
CPT/HCPCS: 97597; 99213

== ENCOUNTER → 2022-11-11 10:36 | Outpatient (CLI) | payer MEDICARE, SELFPAY ==
[2022-09-16 21:20] VITALS: BMI 36.6
== END ==
PROVIDERS: PCP Family Medicine; Referring Provider Emergency Medicine; Visit Provider Nurse Practitioner Family
DX: L12.0 Bullous pemphigoid (principal); L97.822 Non-pressure chronic ulcer of other part of left lower leg with fat layer exposed; Z79.01 Long term (current) use of anticoagulants
CPT/HCPCS: 97597

== ENCOUNTER → 2022-11-18 11:22 | Outpatient (CLI) | payer MEDICARE, SELFPAY ==
[2022-09-16 21:20] VITALS: BMI 36.6
== END ==
PROVIDERS: PCP Family Medicine; Referring Provider Emergency Medicine; Visit Provider Physician Assistant
DX: L12.0 Bullous pemphigoid (principal); S81.802A Unspecified open wound, left lower leg, initial encounter; R60.0 Localized edema; R20.8 Other disturbances of skin sensation; I13.0 Hypertensive heart and chronic kidney disease with heart failure and stage 1 through stage 4 chronic kidney disease, or unspecified chronic kidney disease; N18.9 Chronic kidney disease, unspecified; I50.9 Heart failure, unspecified; I48.91 Unspecified atrial fibrillation; Z79.01 Long term (current) use of anticoagulants; Z95.0 Presence of cardiac pacemaker; Z86.711 Personal history of pulmonary embolism; Z74.09 Other reduced mobility
CPT/HCPCS: 97597

== ENCOUNTER → 2022-12-02 11:00 | Outpatient (CLI) | payer MEDICARE, SELFPAY ==
[2022-09-16 21:20] VITALS: BMI 36.6
== END ==
PROVIDERS: PCP Family Medicine; Referring Provider Family Medicine; Visit Provider Physician Assistant
DX: L12.0 Bullous pemphigoid (principal); L97.822 Non-pressure chronic ulcer of other part of left lower leg with fat layer exposed; R60.9 Edema, unspecified; Z79.01 Long term (current) use of anticoagulants
CPT/HCPCS: 11042; 99213

== ENCOUNTER → 2022-12-16 10:33 | Outpatient (CLI) | payer MEDICARE, SELFPAY ==
[2022-09-16 21:20] VITALS: BMI 36.6
== END ==
PROVIDERS: Family Provider Family Medicine; PCP Family Medicine; Referring Provider Emergency Medicine; Visit Provider Physician Assistant
DX: L12.0 Bullous pemphigoid (principal); R60.9 Edema, unspecified
CPT/HCPCS: 99213

== ENCOUNTER → 2023-01-13 10:04 | Outpatient (CLI) | payer MEDICARE, SELFPAY ==
[2022-09-16 21:20] VITALS: BMI 36.6
== END ==
PROVIDERS: Family Provider Family Medicine; PCP Family Medicine; Referring Provider Family Medicine; Visit Provider Physician Assistant
DX: L12.0 Bullous pemphigoid (principal); Z79.01 Long term (current) use of anticoagulants
CPT/HCPCS: 99212

== ENCOUNTER 2023-02-08 12:00 | Outpatient (RCR) | payer MEDICARE, SELFPAY ==
[2022-09-16 21:20] VITALS: BMI 36.6
--- NOTE | 2023-01-09 11:45 | PT.OIE ---
Current Diagnoses Pain in left hip (01/09/23) Unsteadiness on feet (01/09/23) Other abnormalities of gait and mobility (01/09/23) Unspecified trochanteric fracture of left femur, subsequent encounter for closed fracture with routine healing (01/09/23) History of falling (01/09/23) Past Medical History (Last Updated 10/10/22 @ 11:38 by Shira Corbin DO) Abscess of left thigh (~07/2022) Acute CHF (~07/2021) Acute hyponatremia Anemia Asthma Atrial fibrillation by electrocardiography Bullous pemphigoid (~10/2019) C. difficile colitis (~08/2022) Chickenpox Cholelithiasis Chronic kidney disease (CKD) stage G2/A1, mildly decreased glomerular filtration rate (GFR) between 60-89 mL/min/1.73 square meter and albuminuria creatinine ratio less than 30 mg/g (09/06/17) Chronic obstructive pulmonary disease (10/19/16) Class 1 obesity (09/05/16) Clavicle fracture (~08/2022) Diverticulitis Diverticulosis of colon (~12/2020) Eczema Environmental allergies (09/05/16) Fatigue due to sleep pattern disturbance Hepatitis B core antibody positive History of torn meniscus of right knee Hyperlipidemia (01/25/11) Hypertension (01/25/11) Hypothyroidism (~2007) Insomnia due to medical condition Measles Morbid obesity with body mass index (BMI) of 40.0 to 49.9 Osteoarthritis (01/25/11) Pacemaker (~05/2021) Pedal edema Nida-prosthetic fracture around prosthetic hip (~08/2022) Persistent atrial fibrillation Pleural effusion (~2021) Pulmonary embolism (~07/2021) Pulmonary nodules/lesions, multiple Recurrent sinusitis (~1999) Seasonal allergies Sigmoid diverticulosis Skin tear of left upper extremity (~08/2022) Snoring Past Surgical History (Last Reviewed 09/14/22 @ 18:03 by Francy Gannon PA-C) Anesthesia History of foot surgery History of hip replacement (~2010) History of hip replacement (~2012) History of radiofrequency ablation procedure for cardiac arrhythmia (~07/2019) Polyp of nasal sinus Status post hysterectomy with oophorectomy (~1996) Visit Care Team Role Provider Type Shira Corbin DO Family Provider Physician Primary Care Provider Specialty: Medical Address: [address] [place] [address], [address], [place], [address] Email: [email or web address] Noni Lynch MD Attending Provider Physician Referring Provider Specialty: Orthopedics Orthopedic Surgery Address: [address] [place] [address], [place], [address] Email: [email or web address] Physical Therapy Initial Evaluation PT-OP-A Visit Information Start: 01/09/23 17:15 Freq: Status: Active Protocol: Document 01/09/23 11:00 DCW (Rec: 01/09/23 17:27 DCW [id number]) Out-Patient Physical Therapy Visit Information Visit Information Visit Type Initial Evaluation Visit Start Time 11:00 Visit Stop Time 11:45 Total Visit Minutes 45 Visit Number 1 Number of PROCESSING REP Visits 0 Evaluation Information Evaluation Date 01/09/23 PT-OP-B Current Condition Start: 01/09/23 17:15 Freq: Status: Active Protocol: Document 01/09/23 11:00 DCW (Rec: 01/09/23 17:27 DC [id number]) Current Condition History of Current Condition Onset Date 08/12/22 Current Complaints Poor balance, decreased confidence, hip pain s/p femoral fracture History of Current Condition Pt is a 72 year old female presenting to skilled therapy 5 months s/p closed fracture of trochanter of left femur. Pt fell on 08/12/22 while attending wound care appointment, suffered trochantaric fracture as well as distal L clavicle fracture. Pt reports she was in a local SNF for two months, and then was discharged home with home health PT, which she participated in until ~one month ago. Pt feels like she has gotten stronger with rehab , and overall feels like she is moving well, but does note decreased confidence in her balance. Pt reports she has gotten to the point where she can go down the stairs to her sewing room, and has gotten much better at unassisted sit< ->stands. Is back to showering independently. Uses 4WW when out in community, but notes she counter surfs at home. Would feel more comfortable getting back to walking with a cane, and to work toward floor transfers. Prior Treatments and Tests Hip x-ray: IMPRESSION: Mildly displaced left periprosthetic fracture. per Jerod Hansen M.D. on 08/12/2022 Shoulder x-ray: IMPRESSION: Distal clavicle fracture. per Jerod Hansen M.D. on 08/12/2022 Treatment Goals Patient/Caregiver Goals I just want to feel more confident with my balance and walking. PT-OP-C Subjective Start: 01/09/23 17:15 Freq: Status: Active Protocol: Document 01/09/23 11:00 DCW (Rec: 01/09/23 17:27 DCW [id number]) OP-PT Subjective Patient Comments Patient Comments I'm strong. Dr. Lynch just said I should do a little more to work on my balance. OP-PT Pain Assessment Location Left Hip Intensity 3 Scale Used Numeric (0 - 10) Left Shoulder Intensity 1 Scale Used Numeric (0 - 10) PT-OP-D Balance Start: 01/09/23 17:15 Freq: Status: Active Protocol: Document 01/09/23 11:00 DCW (Rec: 01/10/23 12:12 DCW [id number]) Balance Tests Monteiro Balance Test Monteiro Balance Test Score 36/56 Monteiro Impairment Rating 20 to 39% Impaired (Score 34- 44) Monteiro Balance Assessment Evaluation Sitting to Standing Ability Several Tries w/Hands Unsupported Stance Supervision- 2 minutes Sitting Unsupported, Feet on Floor Supervision- 2 minutes Standing to Sitting Ability Assist, Control w/Hands Transfer Ability Safely, Hand Use Unsupported Stance- Eyes Closed Supervision, 10 seconds Unsupported Stance- Eyes Open Supervision to maintain Reaching Forward Standing Safely, 5 inches Pick- Up Object From Floor Supervision Look Behind Shoulder - Standing Turns Sideways Only Turning 360 Degrees Turns slowly, but safely Unsupported Stance, Alternating Feet on (I)- 8 Steps in > 20 secs Stair Unsupported Tandem Stance Small Step- 30 seconds Unilateral Leg Stance Lifts Leg/Unable to Hold Total Score Monteiro Total Score (out of 56 points) 36 Monteiro Impairment Rating 20 to 39% Impaired (Score 34- 44) PT-OP-E Functional Tests Start: 01/09/23 17:15 Freq: Status: Active Protocol: Document 01/09/23 11:00 DCW (Rec: 01/10/23 12:12 DCW [id number]) Functional Tests Dynamic Gait Index (DGI) Score 15 DGI Impairment Rating 20 to <40% Impaired (Score 15- 19) PT-OP-M Strength Start: 01/09/23 17:15 Freq: Status: Active Protocol: Document 01/09/23 11:00 DCW (Rec: 01/10/23 12:12 DCW [id number]) Hip Strength Hip Manual Muscle Testing Right Flexion (L2) 4- Good- Abduction 4- Good- Adduction 3+ Fair+ Left Flexion (L2) 4- Good- Abduction 4- Good- Adduction 3+ Fair+ Knee Strength Knee Manual Muscle Testing Right Flexion (S2) 4- Good- Extension (L3) 4- Good- Left Flexion (S2) 3+ Fair+ Extension (L3) 4- Good- Ankle/Foot Strength Ankle and Foot Manual Muscle Testing Right Dorsiflexion (L4) 3 Fair Left Dorsiflexion (L4) 3 Fair PT-OP-T Assessment and Plan Start: 01/09/23 17:15 Freq: Status: Active Protocol: Document 01/09/23 11:00 DCW (Rec: 01/10/23 15:42 DCW [id number]) Physical Therapy Assessment Rehab Potential Rehabilitation Potential Good Evaluation Complexity Number of Personal Factors/Comorbidities 3 or More Number of Body Systems Impaired 3 Clinical Presentation at Evaluation Unstable Impairments Impairments Activity Tolerance,Balance, Functional Activities, Functional Mobility,Soft Tissue Mobility,Strength Goals no HEP Impairment Pt does not have an appropriate home exercise program Short Term Goal (STG) Pt to be independent and compliant with an appropriate HEP STG Duration 02/09/23 gait dysfunciton Impairment Pt scores as a falls risk, per score on DGI () Snf Goal (LTG) Pt to increase score of DGI by at least 5 points to 2024 in order to demonstrate decreased falls risk LTG Duration 04/09/23 weakness Impairment Pt scores MMT between 3/5-3+5 in multiple LE planes Snf Goal (LTG) Pt to increase LE MMT to at least 4-/5 in all tested planes in order to improve functional mobility LTG Duration 04/09/23 Assessment Summary Assessment Pt presents with signs and symptoms consistent with referring diagnosis. Pt has overall made good progress in the five months since her proximal femoral fracture, is showing fairly good mobility with use of 4WW. Still tests as an increased falls risk per Monteiro (36/56) and DGI (15/24), as well as general LE weakness bilaterally, specifically in bilateral hip abduction, left knee flexion, and bilateral dorsiflexion. Pt should benefit from skilled therapy focusing on decreasing falls risk, improving balance /gait, working on transitioning from 4WW to SPC, per pt desires, and trial of improving floor transfers. Is currently doing good work with HH PT HEP, but will require increased difficulty and focus on challenging her balance. Physical Therapy Plan Frequency and Duration Frequency of Treatment 2x/Week Plan of Care Start Date 01/09/23 Plan of Care End Date 04/09/23 Therapeutic Interventions Therapeutic Interventions Balance Training,Gait Training ,Home Exercise Program,Manual Therapy,Neuromuscular Re- education,Patient/Caregiver Education,Self-Care/Home Management,Soft Tissue Mobilization,Therapeutic Activities,Therapeutic Exercises Next Visit Focus/Plan Next Note Type Treatment Note Next Visit Plan LE strengthening, balance challenges, gait training, NMR
--- NOTE | 2023-01-09 11:45 | PT.OPPOC ---
Physical, Occupational & Speech Therapy At [facility] Current Diagnoses Pain in left hip (01/09/23) Unsteadiness on feet (01/09/23) Other abnormalities of gait and mobility (01/09/23) Unspecified trochanteric fracture of left femur, subsequent encounter for closed fracture with routine healing (01/09/23) History of falling (01/09/23) Visit Care Team Role Provider Type Shira Corbin DO Family Provider Physician Primary Care Provider Specialty: Medical Address: [address] [place] [address], [address], [place], [address] Email: [email or web address] Noni Lynhc MD Attending Provider Physician Referring Provider Specialty: Orthopedics Orthopedic Surgery Address: [address] [place] [address], [address] Email: [email or web address] Plan Of Care PT-OP-T Assessment and Plan Start: 01/09/23 17:15 Freq: Status: Active Protocol: Document 01/09/23 11:00 DCW (Rec: 01/10/23 15:42 DCW [id number]) Physical Therapy Assessment Rehab Potential Rehabilitation Potential Good Evaluation Complexity Number of Personal Factors/Comorbidities 3 or More Number of Body Systems Impaired 3 Clinical Presentation at Evaluation Unstable Impairments Impairments Activity Tolerance,Balance, Functional Activities, Functional Mobility,Soft Tissue Mobility,Strength Goals no HEP Impairment Pt does not have an appropriate home exercise program Short Term Goal (STG) Pt to be independent and compliant with an appropriate HEP STG Duration 02/09/23 gait dysfunciton Impairment Pt scores as a falls risk, per score on DGI () Fpc Goal (LTG) Pt to increase score of DGI by at least 5 points to in order to demonstrate decreased falls risk LTG Duration 04/09/23 weakness Impairment Pt scores MMT between 3/5-3+5 in multiple LE planes Fpc Goal (LTG) Pt to increase LE MMT to at least 4-/5 in all tested planes in order to improve functional mobility LTG Duration 04/09/23 Assessment Summary Assessment Pt presents with signs and symptoms consistent with referring diagnosis. Pt has overall made good progress in the five months since her proximal femoral fracture, is showing fairly good mobility with use of 4WW. Still tests as an increased falls risk per Monteiro (36/56) and DGI (15/24), as well as general LE weakness bilaterally, specifically in bilateral hip abduction, left knee flexion, and bilateral dorsiflexion. Pt should benefit from skilled therapy focusing on decreasing falls risk, improving balance /gait, working on transitioning from 4WW to SPC, per pt desires, and trial of improving floor transfers. Is currently doing good work with PT HEP, but will require increased difficulty and focus on challenging her balance. Physical Therapy Plan Frequency and Duration Frequency of Treatment 2x/Week Plan of Care Start Date 01/09/23 Plan of Care End Date 04/09/23 Therapeutic Interventions Therapeutic Interventions Balance Training,Gait Training ,Home Exercise Program,Manual Therapy,Neuromuscular Re- education,Patient/Caregiver Education,Self-Care/Home Management,Soft Tissue Mobilization,Therapeutic Activities,Therapeutic Exercises Next Visit Focus/Plan Next Note Type Treatment Note Next Visit Plan LE strengthening, balance challenges, gait training, NMR Plan of Care Dates Plan of Care Start Date 01/09/23 Plan of Care End Date 04/09/23 Electronically Signed by: Keo Luis, PT 01/10/23 8933 If you are in agreement with this Plan of Care, please return a signed and dated copy. I have reviewed this Plan of Care and certify that the skilled therapy services above are required to meet the patient?s needs. Physician Signature Date Printed Name and Credentials Clinical Instructor Signature Printed Name and Credentials
--- NOTE | 2023-01-12 11:46 | PT.OTN ---
Current Diagnoses Pain in left hip (01/12/23) Unsteadiness on feet (01/12/23) Other abnormalities of gait and mobility (01/12/23) Unspecified trochanteric fracture of left femur, subsequent encounter for closed fracture with routine healing (01/12/23) History of falling (01/12/23) Physical Therapy Treatment Note PT-OP-A Visit Information Start: 01/09/23 17:15 Freq: Status: Active Protocol: Document 01/12/23 11:00 DCW (Rec: 01/12/23 11:45 DCW [id number]) Out-Patient Physical Therapy Visit Information Visit Information Visit Type Treatment Note Visit Start Time 11:00 Visit Stop Time 11:45 Total Visit Minutes 45 Visit Number 2 Number of WOODEN SHADE HARDWARE INSTALLER Visits 0 Evaluation Information Evaluation Date 01/09/23 PT-OP-B Current Condition Start: 01/09/23 17:15 Freq: Status: Active Protocol: Document 01/09/23 11:00 DCW (Rec: 01/09/23 17:27 DCW [id number]) Current Condition History of Current Condition Onset Date 08/12/22 Current Complaints Poor balance, decreased confidence, hip pain s/p femoral fracture History of Current Condition Pt is a 72 year old female presenting to skilled therapy 5 months s/p closed fracture of trochanter of left femur. Pt fell on 08/12/22 while attending wound care appointment, suffered trochantaric fracture as well as distal L clavicle fracture. Pt reports she was in a local SNF for two months, and then was discharged home with home health PT, which she participated in until ~one month ago. Pt feels like she has gotten stronger with rehab , and overall feels like she is moving well, but does note decreased confidence in her balance. Pt reports she has gotten to the point where she can go down the stairs to her sewing room, and has gotten much better at unassisted sit< ->stands. Is back to showering independently. Uses [employer] when out in community, but notes she counter surfs at home. Would feel more comfortable getting back to walking with a cane, and to work toward floor transfers. Prior Treatments and Tests Hip x-ray: IMPRESSION: Mildly displaced left periprosthetic fracture. per Jerod Hansen M.D. on 08/12/2022 Shoulder x-ray: IMPRESSION: Distal clavicle fracture. per Jerod Hansen M.D. on 08/12/2022 Treatment Goals Patient/Caregiver Goals I just want to feel more confident with my balance and walking. PT-OP-C Subjective Start: 01/09/23 17:15 Freq: Status: Active Protocol: Document 01/12/23 11:00 DCW (Rec: 01/12/23 11:45 DCW [id number]) OP-PT Subjective Patient Comments Patient Comments It's almost like I have been learning to walk again. PT-OP-D Balance Start: 01/09/23 17:15 Freq: Status: Active Protocol: Document 01/09/23 11:00 DCW (Rec: 01/10/23 12:12 DCW [id number]) Balance Tests Monteiro Balance Test Monteiro Balance Test Score 36/56 Monteiro Impairment Rating 20 to 39% Impaired (Score 34- 44) Monteiro Balance Assessment Evaluation Sitting to Standing Ability Several Tries w/Hands Unsupported Stance Supervision- 2 minutes Sitting Unsupported, Feet on Floor Supervision- 2 minutes Standing to Sitting Ability Assist, Control w/Hands Transfer Ability Safely, Hand Use Unsupported Stance- Eyes Closed Supervision, 10 seconds Unsupported Stance- Eyes Open Supervision to maintain Reaching Forward Standing Safely, 5 inches Pick- Up Object From Floor Supervision Look Behind Shoulder - Standing Turns Sideways Only Turning 360 Degrees Turns slowly, but safely Unsupported Stance, Alternating Feet on (I)- 8 Steps in > 20 secs Stair Unsupported Tandem Stance Small Step- 30 seconds Unilateral Leg Stance Lifts Leg/Unable to Hold Total Score Monteiro Total Score (out of 56 points) 36 Monteiro Impairment Rating 20 to 39% Impaired (Score 34- 44) PT-OP-E Functional Tests Start: 01/09/23 17:15 Freq: Status: Active Protocol: Document 01/09/23 11:00 DCW (Rec: 01/10/23 12:12 DCW [id number]) Functional Tests Dynamic Gait Index (DGI) Score 15/24 DGI Impairment Rating 20 to <40% Impaired (Score 15- 19) PT-OP-M Strength Start: 01/09/23 17:15 Freq: Status: Active Protocol: Document 01/09/23 11:00 DCW (Rec: 01/10/23 12:12 DCW [id number]) Hip Strength Hip Manual Muscle Testing Right Flexion (L2) 4- Good- Abduction 4- Good- Adduction 3+ Fair+ Left Flexion (L2) 4- Good- Abduction 4- Good- Adduction 3+ Fair+ Knee Strength Knee Manual Muscle Testing Right Flexion (S2) 4- Good- Extension (L3) 4- Good- Left Flexion (S2) 3+ Fair+ Extension (L3) 4- Good- Ankle/Foot Strength Ankle and Foot Manual Muscle Testing Right Dorsiflexion (L4) 3 Fair Left Dorsiflexion (L4) 3 Fair PT-OP-Q Treatments Start: 01/09/23 17:15 Freq: Status: Active Protocol: Document 01/12/23 11:00 DCW (Rec: 01/12/23 11:45 DCW [id number]) Cardio Equipment Recumbent Elliptical ([employer]) Duration (Minutes) 5 Resistance 4 Seat Position 8 Therapeutic Exercises Standing Exercises Hip Extension Standing Exercise Name Hip Extension Side bilateral Resistance Yellow Hip Adduction Standing Exercise Name Hip Adduction Side bilateral Resistance Lv 2 T-band Other Exercises Resisted Ambulation Other Exercise Name Resisted side-stepping Resistance Yellow Neuro Re-Education Treatment Balance Activities Foam Stance Details EO/EC Surface Blue foam Equipment // bars Tandem Ambulation Details Tandem Ambulation Equipment // bars Hurdles Details Hurdles Equipment // bars Comments Fwd, side-stepping PT-OP-T Assessment and Plan Start: 01/09/23 17:15 Freq: Status: Active Protocol: Document 01/12/23 11:00 DCW (Rec: 01/12/23 11:45 DCW [id number]) Physical Therapy Assessment Impairments Impairments Activity Tolerance,Balance, Functional Activities, Functional Mobility,Soft Tissue Mobility,Strength Goals no HEP Impairment Pt does not have an appropriate home exercise program Short Term Goal (STG) Pt to be independent and compliant with an appropriate HEP STG Duration 02/09/23 gait dysfunciton Impairment Pt scores as a falls risk, per score on DGI () Gizzard Puller Goal (LTG) Pt to increase score of DGI by at least 5 points to in order to demonstrate decreased falls risk LTG Duration 04/09/23 weakness Impairment Pt scores MMT between 3/5-3+5 in multiple LE planes Usp Goal (LTG) Pt to increase LE MMT to at least 4-/5 in all tested planes in order to improve functional mobility LTG Duration 04/09/23 Assessment Summary Assessment Pt did fairly well today, had some fatigue in bilateral hips after a few repetitions, but was able to complete all attempted TherEx today. Relied on UEs for most balance challenges, although did work on trying to use just fingertips as she progress through today's session. Continue to focus on balance and LE strengthening, as well as gait training. Physical Therapy Plan Frequency and Duration Frequency of Treatment 2x/Week Plan of Care Start Date 01/09/23 Plan of Care End Date 04/09/23 Therapeutic Interventions Therapeutic Interventions Balance Training,Gait Training ,Home Exercise Program,Manual Therapy,Neuromuscular Re- education,Patient/Caregiver Education,Self-Care/Home Management,Soft Tissue Mobilization,Therapeutic Activities,Therapeutic Exercises Next Visit Focus/Plan Next Note Type Treatment Note Next Visit Plan LE strengthening, balance challenges, gait training, NMR
--- NOTE | 2023-01-17 11:45 | PT.OTN ---
Current Diagnoses Pain in left hip (01/17/23) Unsteadiness on feet (01/17/23) Other abnormalities of gait and mobility (01/17/23) Unspecified trochanteric fracture of left femur, subsequent encounter for closed fracture with routine healing (01/17/23) History of falling (01/17/23) Physical Therapy Treatment Note PT-OP-A Visit Information Start: 01/09/23 17:15 Freq: Status: Active Protocol: Document 01/17/23 11:00 DCW (Rec: 01/17/23 11:45 DCW [id number]) Out-Patient Physical Therapy Visit Information Visit Information Visit Type Treatment Note Visit Start Time 11:00 Visit Stop Time 11:45 Total Visit Minutes 45 Visit Number 3 Number of RETREAD SUPERVISOR Visits 0 Evaluation Information Evaluation Date 01/09/23 PT-OP-B Current Condition Start: 01/09/23 17:15 Freq: Status: Active Protocol: Document 01/09/23 11:00 DCW (Rec: 01/09/23 17:27 DCW [id number]) Current Condition History of Current Condition Onset Date 08/12/22 Current Complaints Poor balance, decreased confidence, hip pain s/p femoral fracture History of Current Condition Pt is a 72 year old female presenting to skilled therapy 5 months s/p closed fracture of trochanter of left femur. Pt fell on 08/12/22 while attending wound care appointment, suffered trochantaric fracture as well as distal L clavicle fracture. Pt reports she was in a local SNF for two months, and then was discharged home with home health PT, which she participated in until ~one month ago. Pt feels like she has gotten stronger with rehab , and overall feels like she is moving well, but does note decreased confidence in her balance. Pt reports she has gotten to the point where she can go down the stairs to her sewing room, and has gotten much better at unassisted sit< ->stands. Is back to showering independently. Uses [employer] when out in community, but notes she counter surfs at home. Would feel more comfortable getting back to walking with a cane, and to work toward floor transfers. Prior Treatments and Tests Hip x-ray: IMPRESSION: Mildly displaced left periprosthetic fracture. per Jerod Hansen M.D. on 08/12/2022 Shoulder x-ray: IMPRESSION: Distal clavicle fracture. per Jerod Hansen M.D. on 08/12/2022 Treatment Goals Patient/Caregiver Goals I just want to feel more confident with my balance and walking. PT-OP-C Subjective Start: 01/09/23 17:15 Freq: Status: Active Protocol: Document 01/17/23 11:00 DCW (Rec: 01/17/23 11:45 DCW [id number]) OP-PT Subjective Patient Comments Patient Comments I felt pretty good after lasttime. PT-OP-D Balance Start: 01/09/23 17:15 Freq: Status: Active Protocol: Document 01/09/23 11:00 DCW (Rec: 01/10/23 12:12 DCW [id number]) Balance Tests Monteiro Balance Test Monteiro Balance Test Score 36/56 Monteiro Impairment Rating 20 to 39% Impaired (Score 34- 44) Monteiro Balance Assessment Evaluation Sitting to Standing Ability Several Tries w/Hands Unsupported Stance Supervision- 2 minutes Sitting Unsupported, Feet on Floor Supervision- 2 minutes Standing to Sitting Ability Assist, Control w/Hands Transfer Ability Safely, Hand Use Unsupported Stance- Eyes Closed Supervision, 10 seconds Unsupported Stance- Eyes Open Supervision to maintain Reaching Forward Standing Safely, 5 inches Pick- Up Object From Floor Supervision Look Behind Shoulder - Standing Turns Sideways Only Turning 360 Degrees Turns slowly, but safely Unsupported Stance, Alternating Feet on (I)- 8 Steps in > 20 secs Stair Unsupported Tandem Stance Small Step- 30 seconds Unilateral Leg Stance Lifts Leg/Unable to Hold Total Score Monteiro Total Score (out of 56 points) 36 Monteiro Impairment Rating 20 to 39% Impaired (Score 34- 44) PT-OP-E Functional Tests Start: 01/09/23 17:15 Freq: Status: Active Protocol: Document 01/09/23 11:00 DCW (Rec: 01/10/23 12:12 DCW [id number]) Functional Tests Dynamic Gait Index (DGI) Score 15/24 DGI Impairment Rating 20 to <40% Impaired (Score 15- 19) PT-OP-M Strength Start: 01/09/23 17:15 Freq: Status: Active Protocol: Document 01/09/23 11:00 DCW (Rec: 01/10/23 12:12 DCW [id number]) Hip Strength Hip Manual Muscle Testing Right Flexion (L2) 4- Good- Abduction 4- Good- Adduction 3+ Fair+ Left Flexion (L2) 4- Good- Abduction 4- Good- Adduction 3+ Fair+ Knee Strength Knee Manual Muscle Testing Right Flexion (S2) 4- Good- Extension (L3) 4- Good- Left Flexion (S2) 3+ Fair+ Extension (L3) 4- Good- Ankle/Foot Strength Ankle and Foot Manual Muscle Testing Right Dorsiflexion (L4) 3 Fair Left Dorsiflexion (L4) 3 Fair PT-OP-Q Treatments Start: 01/09/23 17:15 Freq: Status: Active Protocol: Document 01/17/23 11:00 DCW (Rec: 01/17/23 11:45 DCW [id number]) Cardio Equipment Recumbent Elliptical ([employer]) Duration (Minutes) 5 Resistance 4 Seat Position 8 Gym Equipment Shuttle Recovery Unilateral Squats Resistance 37# Bilateral Squats Resistance 50# Shuttle Balance Blue Details WBOS, Staggered Therapeutic Exercises Standing Exercises Hip Abduction Standing Exercise Name Hip Abduction Side bilateral Resistance Yellow @ knee Hip Extension Standing Exercise Name Hip Extension Side bilateral Resistance Yellow @ knee Neuro Re-Education Treatment Balance Activities Tandem Ambulation Details Tandem Ambulation Equipment @ rail Hurdles Details Hurdles Equipment @ rail Comments Fwd, side-stepping PT-OP-T Assessment and Plan Start: 01/09/23 17:15 Freq: Status: Active Protocol: Document 01/17/23 11:00 DCW (Rec: 01/17/23 11:45 DCW [id number]) Physical Therapy Assessment Impairments Impairments Activity Tolerance,Balance, Functional Activities, Functional Mobility,Soft Tissue Mobility,Strength Goals no HEP Impairment Pt does not have an appropriate home exercise program Short Term Goal (STG) Pt to be independent and compliant with an appropriate HEP STG Duration 02/09/23 gait dysfunciton Impairment Pt scores as a falls risk, per score on DGI () Flush Tester Goal (LTG) Pt to increase score of DGI by at least 5 points to in order to demonstrate decreased falls risk LTG Duration 04/09/23 weakness Impairment Pt scores MMT between 3/5-3+5 in multiple LE planes Flush Tester Goal (LTG) Pt to increase LE MMT to at least 4-/5 in all tested planes in order to improve functional mobility LTG Duration 04/09/23 Assessment Summary Assessment Pt continues to fatigue a bit during her session, but works very hard on balance challenges. Avoided any pressure near ankles due to area around left distal calf that she just got discharged from wound care secondary to prior ulcer. Physical Therapy Plan Frequency and Duration Frequency of Treatment 2x/Week Plan of Care Start Date 01/09/23 Plan of Care End Date 04/09/23 Therapeutic Interventions Therapeutic Interventions Balance Training,Gait Training ,Home Exercise Program,Manual Therapy,Neuromuscular Re- education,Patient/Caregiver Education,Self-Care/Home Management,Soft Tissue Mobilization,Therapeutic Activities,Therapeutic Exercises Next Visit Focus/Plan Next Note Type Treatment Note Next Visit Plan LE strengthening, balance challenges, gait training, NMR
--- NOTE | 2023-02-06 10:15 | PT.OTN ---
Current Diagnoses Pain in left hip (02/06/23) Unsteadiness on feet (02/06/23) Other abnormalities of gait and mobility (02/06/23) Unspecified trochanteric fracture of left femur, subsequent encounter for closed fracture with routine healing (02/06/23) History of falling (02/06/23) Physical Therapy Treatment Note PT-OP-A Visit Information Start: 01/09/23 17:15 Freq: Status: Active Protocol: Document 02/06/23 09:42 DCW (Rec: 02/06/23 10:15 DCW [id number]) Out-Patient Physical Therapy Visit Information Visit Information Visit Type Treatment Note Visit Note 12 min late Visit Start Time 09:42 Visit Stop Time 10:15 Total Visit Minutes 33 Visit Number 5 Number of TECHNOLOGY DIRECTOR Visits 0 Evaluation Information Evaluation Date 01/09/23 PT-OP-B Current Condition Start: 01/09/23 17:15 Freq: Status: Active Protocol: Document 01/09/23 11:00 DCW (Rec: 01/09/23 17:27 DCW [id number]) Current Condition History of Current Condition Onset Date 08/12/22 Current Complaints Poor balance, decreased confidence, hip pain s/p femoral fracture History of Current Condition Pt is a 72 year old female presenting to skilled therapy 5 months s/p closed fracture of trochanter of left femur. Pt fell on 08/12/22 while attending wound care appointment, suffered trochantaric fracture as well as distal L clavicle fracture. Pt reports she was in a local SNF for two months, and then was discharged home with home health PT, which she participated in until ~one month ago. Pt feels like she has gotten stronger with rehab , and overall feels like she is moving well, but does note decreased confidence in her balance. Pt reports she has gotten to the point where she can go down the stairs to her sewing room, and has gotten much better at unassisted sit< ->stands. Is back to showering independently. Uses [employer] when out in community, but notes she counter surfs at home. Would feel more comfortable getting back to walking with a cane, and to work toward floor transfers. Prior Treatments and Tests Hip x-ray: IMPRESSION: Mildly displaced left periprosthetic fracture. per Jerod Hansen M.D. on 08/12/2022 Shoulder x-ray: IMPRESSION: Distal clavicle fracture. per Jerod Hansen M.D. on 08/12/2022 Treatment Goals Patient/Caregiver Goals I just want to feel more confident with my balance and walking. PT-OP-C Subjective Start: 01/09/23 17:15 Freq: Status: Active Protocol: Document 02/06/23 09:42 DCW (Rec: 02/06/23 10:15 DCW [id number]) OP-PT Subjective Patient Comments Patient Comments Pt reports she is a little more stiff than usual, her 7 year old granddaughter is visiting, and so she's been more active than usual. PT-OP-D Balance Start: 01/09/23 17:15 Freq: Status: Active Protocol: Document 01/09/23 11:00 DCW (Rec: 01/10/23 12:12 DCW [id number]) Balance Tests Monteiro Balance Test Monteiro Balance Test Score 36/56 Monteiro Impairment Rating 20 to 39% Impaired (Score 34- 44) Monteiro Balance Assessment Evaluation Sitting to Standing Ability Several Tries w/Hands Unsupported Stance Supervision- 2 minutes Sitting Unsupported, Feet on Floor Supervision- 2 minutes Standing to Sitting Ability Assist, Control w/Hands Transfer Ability Safely, Hand Use Unsupported Stance- Eyes Closed Supervision, 10 seconds Unsupported Stance- Eyes Open Supervision to maintain Reaching Forward Standing Safely, 5 inches Pick- Up Object From Floor Supervision Look Behind Shoulder - Standing Turns Sideways Only Turning 360 Degrees Turns slowly, but safely Unsupported Stance, Alternating Feet on (I)- 8 Steps in > 20 secs Stair Unsupported Tandem Stance Small Step- 30 seconds Unilateral Leg Stance Lifts Leg/Unable to Hold Total Score Monteiro Total Score (out of 56 points) 36 Monteiro Impairment Rating 20 to 39% Impaired (Score 34- 44) PT-OP-E Functional Tests Start: 01/09/23 17:15 Freq: Status: Active Protocol: Document 01/09/23 11:00 DCW (Rec: 01/10/23 12:12 DCW [id number]) Functional Tests Dynamic Gait Index (DGI) Score 15/24 DGI Impairment Rating 20 to <40% Impaired (Score 15- 19) PT-OP-M Strength Start: 01/09/23 17:15 Freq: Status: Active Protocol: Document 01/09/23 11:00 DCW (Rec: 01/10/23 12:12 DCW [id number]) Hip Strength Hip Manual Muscle Testing Right Flexion (L2) 4- Good- Abduction 4- Good- Adduction 3+ Fair+ Left Flexion (L2) 4- Good- Abduction 4- Good- Adduction 3+ Fair+ Knee Strength Knee Manual Muscle Testing Right Flexion (S2) 4- Good- Extension (L3) 4- Good- Left Flexion (S2) 3+ Fair+ Extension (L3) 4- Good- Ankle/Foot Strength Ankle and Foot Manual Muscle Testing Right Dorsiflexion (L4) 3 Fair Left Dorsiflexion (L4) 3 Fair PT-OP-Q Treatments Start: 01/09/23 17:15 Freq: Status: Active Protocol: Document 02/06/23 09:42 DCW (Rec: 02/06/23 10:15 [facility] [id number]) Cardio Equipment Recumbent Elliptical ([employer]) Duration (Minutes) 5 Resistance 4 Seat Position 8 Gym Equipment Shuttle Recovery Unilateral Squats Resistance 37# Reps/Time x20 each Bilateral Squats Resistance 50# Reps/Time x25 Shuttle Balance Blue Details WBOS, Staggered Neuro Re-Education Treatment Balance Activities Tandem Ambulation Details Tandem Ambulation Equipment // bars Reps/Duration 2x10ft ea Hurdles Details Hurdles Equipment // bars Comments Fwd, side-stepping PT-OP-T Assessment and Plan Start: 01/09/23 17:15 Freq: Status: Active Protocol: Document 02/06/23 09:42 DCW (Rec: 02/06/23 10:15 [facility] [id number]) Physical Therapy Assessment Impairments Impairments Activity Tolerance,Balance, Functional Activities, Functional Mobility,Soft Tissue Mobility,Strength Goals no HEP Impairment Pt does not have an appropriate home exercise program Impairment not currently doing any exercises Short Term Goal (STG) Pt to be independent and compliant with an appropriate HEP STG Duration 02/09/23 gait dysfunciton Impairment Pt scores as a falls risk, per score on DGI () Impairment step-to pattern descending stairs Glass Sander Belt Goal (LTG) Pt to increase score of DGI by at least 5 points to in order to demonstrate decreased falls risk LTG Duration 04/09/23 weakness Impairment Pt scores MMT between 3/5-3+5 in multiple LE planes Impairment difficulty with mobility including in/out of bed, sit to stand Glass Sander Belt Goal (LTG) Pt to increase LE MMT to at least 4-/5 in all tested planes in order to improve functional mobility LTG Duration 04/09/23 Assessment Summary Assessment Did much better today with rest breaks, two total breaks in between different exercises . Showing some improvement with balance, but does continue to rely heavily on UE support. Physical Therapy Plan Frequency and Duration Frequency of Treatment 2x/Week Plan of Care Start Date 01/09/23 Plan of Care End Date 04/09/23 Therapeutic Interventions Therapeutic Interventions Balance Training,Gait Training ,Home Exercise Program,Manual Therapy,Neuromuscular Re- education,Patient/Caregiver Education,Self-Care/Home Management,Soft Tissue Mobilization,Therapeutic Activities,Therapeutic Exercises Next Visit Focus/Plan Next Note Type Treatment Note Next Visit Plan Corner balance (consider for HEP), hurdles. POC: LE strengthening, balance challenges, gait training, NMR
--- NOTE | 2023-02-08 12:46 | PT.OTN ---
Current Diagnoses Pain in left hip (02/08/23) Unsteadiness on feet (02/08/23) Other abnormalities of gait and mobility (02/08/23) Unspecified trochanteric fracture of left femur, subsequent encounter for closed fracture with routine healing (02/08/23) History of falling (02/08/23) Physical Therapy Treatment Note PT-OP-A Visit Information Start: 01/09/23 17:15 Freq: Status: Active Protocol: Document 02/08/23 12:01 DCW (Rec: 02/08/23 12:46 DCW [id number]) Out-Patient Physical Therapy Visit Information Visit Information Visit Type Treatment Note Visit Start Time 12:01 Visit Stop Time 12:45 Total Visit Minutes 44 Visit Number 6 Number of ECCLESIASTICAL WORKER Visits 0 Evaluation Information Evaluation Date 01/09/23 PT-OP-B Current Condition Start: 01/09/23 17:15 Freq: Status: Active Protocol: Document 01/09/23 11:00 DCW (Rec: 01/09/23 17:27 DCW [id number]) Current Condition History of Current Condition Onset Date 08/12/22 Current Complaints Poor balance, decreased confidence, hip pain s/p femoral fracture History of Current Condition Pt is a 72 year old female presenting to skilled therapy 5 months s/p closed fracture of trochanter of left femur. Pt fell on 08/12/22 while attending wound care appointment, suffered trochantaric fracture as well as distal L clavicle fracture. Pt reports she was in a local SNF for two months, and then was discharged home with home health PT, which she participated in until ~one month ago. Pt feels like she has gotten stronger with rehab , and overall feels like she is moving well, but does note decreased confidence in her balance. Pt reports she has gotten to the point where she can go down the stairs to her sewing room, and has gotten much better at unassisted sit< ->stands. Is back to showering independently. Uses 4WW when out in community, but notes she counter surfs at home. Would feel more comfortable getting back to walking with a cane, and to work toward floor transfers. Prior Treatments and Tests Hip x-ray: IMPRESSION: Mildly displaced left periprosthetic fracture. per Jerod Hansen M.D. on 08/12/2022 Shoulder x-ray: IMPRESSION: Distal clavicle fracture. per Jerod Hansen M.D. on 08/12/2022 Treatment Goals Patient/Caregiver Goals I just want to feel more confident with my balance and walking. PT-OP-C Subjective Start: 01/09/23 17:15 Freq: Status: Active Protocol: Document 02/08/23 12:01 DCW (Rec: 02/08/23 12:46 DCW [id number]) OP-PT Subjective Patient Comments Patient Comments Pt reports she is doing pretty well overall. Was able to go to [employer] yesterday and walk over uneven surfaces using her 4WW. PT-OP-D Balance Start: 01/09/23 17:15 Freq: Status: Active Protocol: Document 01/09/23 11:00 DCW (Rec: 01/10/23 12:12 DCW [id number]) Balance Tests Monteiro Balance Test Monteiro Balance Test Score 36/56 Monteiro Impairment Rating 20 to 39% Impaired (Score 34- 44) Monteiro Balance Assessment Evaluation Sitting to Standing Ability Several Tries w/Hands Unsupported Stance Supervision- 2 minutes Sitting Unsupported, Feet on Floor Supervision- 2 minutes Standing to Sitting Ability Assist, Control w/Hands Transfer Ability Safely, Hand Use Unsupported Stance- Eyes Closed Supervision, 10 seconds Unsupported Stance- Eyes Open Supervision to maintain Reaching Forward Standing Safely, 5 inches Pick- Up Object From Floor Supervision Look Behind Shoulder - Standing Turns Sideways Only Turning 360 Degrees Turns slowly, but safely Unsupported Stance, Alternating Feet on (I)- 8 Steps in > 20 secs Stair Unsupported Tandem Stance Small Step- 30 seconds Unilateral Leg Stance Lifts Leg/Unable to Hold Total Score Monteiro Total Score (out of 56 points) 36 Monteiro Impairment Rating 20 to 39% Impaired (Score 34- 44) PT-OP-E Functional Tests Start: 01/09/23 17:15 Freq: Status: Active Protocol: Document 01/09/23 11:00 DCW (Rec: 01/10/23 12:12 DCW [id number]) Functional Tests Dynamic Gait Index (DGI) Score 1524 DGI Impairment Rating 20 to <40% Impaired (Score 15- 19) PT-OP-M Strength Start: 01/09/23 17:15 Freq: Status: Active Protocol: Document 01/09/23 11:00 DCW (Rec: 01/10/23 12:12 [facility] [id number]) Hip Strength Hip Manual Muscle Testing Right Flexion (L2) 4- Good- Abduction 4- Good- Adduction 3+ Fair+ Left Flexion (L2) 4- Good- Abduction 4- Good- Adduction 3+ Fair+ Knee Strength Knee Manual Muscle Testing Right Flexion (S2) 4- Good- Extension (L3) 4- Good- Left Flexion (S2) 3+ Fair+ Extension (L3) 4- Good- Ankle/Foot Strength Ankle and Foot Manual Muscle Testing Right Dorsiflexion (L4) 3 Fair Left Dorsiflexion (L4) 3 Fair PT-OP-Q Treatments Start: 01/09/23 17:15 Freq: Status: Active Protocol: Document 02/08/23 12:01 DCW (Rec: 02/08/23 12:46 [facility] [id number]) Cardio Equipment Recumbent Elliptical (Biodex) Duration (Minutes) 5 Resistance 4 Seat Position 9 Gym Equipment Shuttle Recovery Unilateral Squats Resistance 37# Reps/Time x20 each Bilateral Squats Resistance 50# (Two new) Reps/Time x25 Shuttle Balance Blue Details WBOS, Staggered Therapeutic Exercises Standing Exercises Hip Extension Standing Exercise Name Hip Extension Side bilateral Resistance Yellow @ knee Other Exercises Resisted Ambulation Other Exercise Name Resisted side-stepping Resistance Yellow @ knees Comments vc for neutral foot position, upright posture Neuro Re-Education Treatment Balance Activities SL Details SL balance Equipment @handrail Reps/Duration trials Comments CEPHALOMETRIC TRACER>fingertips>no CEPHALOMETRIC TRACER ( challenging) Foam Stance Details EO/EC Surface Blue foam Equipment // bars Tandem Ambulation Details Tandem Ambulation Equipment // bars Reps/Duration 2x10ft ea PT-OP-T Assessment and Plan Start: 01/09/23 17:15 Freq: Status: Active Protocol: Document 02/08/23 12:01 DCW (Rec: 02/08/23 12:46 [facility] [id number]) Physical Therapy Assessment Impairments Impairments Activity Tolerance,Balance, Functional Activities, Functional Mobility,Soft Tissue Mobility,Strength Goals no HEP Impairment Pt does not have an appropriate home exercise program Impairment not currently doing any exercises Short Term Goal (STG) Pt to be independent and compliant with an appropriate HEP STG Duration 02/09/23 gait dysfunciton Impairment Pt scores as a falls risk, per score on DGI () Impairment step-to pattern descending stairs Asbestos Surveyor Goal (LTG) Pt to increase score of DGI by at least 5 points to in order to demonstrate decreased falls risk LTG Duration 04/09/23 weakness Impairment Pt scores MMT between 3/5-3+5 in multiple LE planes Impairment difficulty with mobility including in/out of bed, sit to stand Senior Living Goal (LTG) Pt to increase LE MMT to at least 4-/5 in all tested planes in order to improve functional mobility LTG Duration 04/09/23 Assessment Summary Assessment Continues to greatly improve tolerance to activities during her PT sessions, able to fully participate with minimal rest breaks. Continue to work on balance challenges and LE strengthening. Physical Therapy Plan Frequency and Duration Frequency of Treatment 2x/Week Plan of Care Start Date 01/09/23 Plan of Care End Date 04/09/23 Therapeutic Interventions Therapeutic Interventions Balance Training,Gait Training ,Home Exercise Program,Manual Therapy,Neuromuscular Re- education,Patient/Caregiver Education,Self-Care/Home Management,Soft Tissue Mobilization,Therapeutic Activities,Therapeutic Exercises Next Visit Focus/Plan Next Note Type Treatment Note Next Visit Plan Corner balance (consider for HEP), hurdles. POC: LE strengthening, balance challenges, gait training, NMR
--- NOTE | 2023-02-28 10:09 | PT.OPDS ---
Current Diagnoses Pain in left hip (02/08/23) Unsteadiness on feet (02/08/23) Other abnormalities of gait and mobility (02/08/23) Unspecified trochanteric fracture of left femur, subsequent encounter for closed fracture with routine healing (02/08/23) History of falling (02/08/23) Visit Care Team Role Provider Type Shira Corbin DO Family Provider Physician Primary Care Provider Specialty: Medical Address: [address] [place] [address], [address], [place], [address] Email: [email or web address] Noni Lynch MD Attending Provider Physician Referring Provider Specialty: Orthopedics Orthopedic Surgery Address: [address] [place] [address], [place], [address] Email: @[employer] Visit Number Visit Number 6 Discharge Summary PT-OP-B Current Condition Start: 01/09/23 17:15 Freq: Status: Active Protocol: Document 01/09/23 11:00 DCW (Rec: 01/09/23 17:27 DCW [id number]) Current Condition History of Current Condition Onset Date 08/12/22 Current Complaints Poor balance, decreased confidence, hip pain s/p femoral fracture History of Current Condition Pt is a 72 year old female presenting to skilled therapy 5 months s/p closed fracture of trochanter of left femur. Pt fell on 08/12/22 while attending wound care appointment, suffered trochantaric fracture as well as distal L clavicle fracture. Pt reports she was in a local SNF for two months, and then was discharged home with home health PT, which she participated in until ~one month ago. Pt feels like she has gotten stronger with rehab , and overall feels like she is moving well, but does note decreased confidence in her balance. Pt reports she has gotten to the point where she can go down the stairs to her sewing room, and has gotten much better at unassisted sit< ->stands. Is back to showering independently. Uses [employer] when out in community, but notes she counter surfs at home. Would feel more comfortable getting back to walking with a cane, and to work toward floor transfers. Prior Treatments and Tests Hip x-ray: IMPRESSION: Mildly displaced left periprosthetic fracture. per Jerod Hansen M.D. on 08/12/2022 Shoulder x-ray: IMPRESSION: Distal clavicle fracture. per Jerod Hansen M.D. on 08/12/2022 Treatment Goals Patient/Caregiver Goals I just want to feel more confident with my balance and walking. PT-OP-C Subjective Start: 01/09/23 17:15 Freq: Status: Active Protocol: Document 02/08/23 12:01 DCW (Rec: 02/08/23 12:46 DCW [id number]) OP-PT Subjective Patient Comments Patient Comments Pt reports she is doing pretty well overall. Was able to go to [employer] yesterday and walk over uneven surfaces using her 4WW. PT-OP-D Balance Start: 01/09/23 17:15 Freq: Status: Active Protocol: Document 01/09/23 11:00 DCW (Rec: 01/10/23 12:12 DCW [id number]) Balance Tests Monteiro Balance Test Monteiro Balance Test Score 36/56 Monteiro Impairment Rating 20 to 39% Impaired (Score 34- 44) Monteiro Balance Assessment Evaluation Sitting to Standing Ability Several Tries w/Hands Unsupported Stance Supervision- 2 minutes Sitting Unsupported, Feet on Floor Supervision- 2 minutes Standing to Sitting Ability Assist, Control w/Hands Transfer Ability Safely, Hand Use Unsupported Stance- Eyes Closed Supervision, 10 seconds Unsupported Stance- Eyes Open Supervision to maintain Reaching Forward Standing Safely, 5 inches Pick- Up Object From Floor Supervision Look Behind Shoulder - Standing Turns Sideways Only Turning 360 Degrees Turns slowly, but safely Unsupported Stance, Alternating Feet on (I)- 8 Steps in > 20 secs Stair Unsupported Tandem Stance Small Step- 30 seconds Unilateral Leg Stance Lifts Leg/Unable to Hold Total Score Monteiro Total Score (out of 56 points) 36 Monteiro Impairment Rating 20 to 39% Impaired (Score 34- 44) PT-OP-E Functional Tests Start: 01/09/23 17:15 Freq: Status: Active Protocol: Document 01/09/23 11:00 DCW (Rec: 01/10/23 12:12 DCW [id number]) Functional Tests Dynamic Gait Index (DGI) Score 1524 DGI Impairment Rating 20 to <40% Impaired (Score 15- 19) PT-OP-M Strength Start: 01/09/23 17:15 Freq: Status: Active Protocol: Document 01/09/23 11:00 DCW (Rec: 01/10/23 12:12 DCW [id number]) Hip Strength Hip Manual Muscle Testing Right Flexion (L2) 4- Good- Abduction 4- Good- Adduction 3+ Fair+ Left Flexion (L2) 4- Good- Abduction 4- Good- Adduction 3+ Fair+ Knee Strength Knee Manual Muscle Testing Right Flexion (S2) 4- Good- Extension (L3) 4- Good- Left Flexion (S2) 3+ Fair+ Extension (L3) 4- Good- Ankle/Foot Strength Ankle and Foot Manual Muscle Testing Right Dorsiflexion (L4) 3 Fair Left Dorsiflexion (L4) 3 Fair PT-OP-T Assessment and Plan Start: 01/09/23 17:15 Freq: Status: Active Protocol: Document 02/28/23 10:07 DCW (Rec: 02/28/23 10:08 DCW [id number]) Physical Therapy Assessment Assessment Summary Assessment Pt's phoned clinic on 02/22/23, reports pt was in the ED for SOB and weakness. Doctor suggested she take it easy and avoid strenuous movements. requested pt be discharged from skilled PT at this time. Physical Therapy Plan Discharge Physical Therapy Discharge Reasons Change in Medical Status Next Visit Focus/Plan Next Note Type Discharge Summary
== END 2023-03-01 10:20 | disposition home or self-care (01) ==
LOC: PHYS 12:00
PROVIDERS: Family Provider Family Medicine; PCP Family Medicine; Referring Provider Orthopaedic Surgery; Visit Provider Orthopaedic Surgery
DX: S72.102D Unspecified trochanteric fracture of left femur, subsequent encounter for closed fracture with routine healing (principal); M25.552 Pain in left hip; R26.81 Unsteadiness on feet; Z91.81 History of falling; R26.89 Other abnormalities of gait and mobility
CPT/HCPCS: 97110; 97112; 97162

== ENCOUNTER → 2023-02-09 17:27 | Outpatient (CLI) | payer MEDICARE, SELFPAY ==
[2022-09-16 21:20] VITALS: BMI 36.6
--- NOTE | 2023-02-09 17:31 | DI.RAD.S_ITS ---
PROCEDURE: XR CHEST 2V INDICATIONS: Cough TECHNIQUE: 2 views of the chest were acquired. COMPARISON: [facility], , XR CHEST 2V, 07/07/2021, 15:46. FINDINGS: Surgical changes and devices: A cardiac pacemaker is seen with pulse generator in the left chest. Lungs and pleura: Mild central pulmonary vascular congestion. No acute pulmonary opacity. No pleural effusions or pneumothorax. Mediastinum: Mediastinal contours are normal. Heart size is mildly enlarged. Bones and chest wall: No suspicious bony abnormalities. Soft tissues appear unremarkable. IMPRESSION: Cardiomegaly and mild prominence of the central pulmonary vasculature. No focal pulmonary opacity. Approved by: Francois Escobar M.D. on 02/10/2023 at 8:23
== END ==
PROVIDERS: Family Provider Family Medicine; PCP Family Medicine; Referring Provider Nurse Practitioner Family; Visit Provider Nurse Practitioner Family
DX: I51.7 Cardiomegaly (principal); R05.9 Cough, unspecified
CPT/HCPCS: 71046

== ENCOUNTER → 2023-02-22 12:08 | Outpatient (CLI) | payer MEDICARE, SELFPAY ==
[2023-02-20 14:01] VITALS: BMI 36.6
--- NOTE | 2023-02-22 12:09 | DI.RAD.S_ITS ---
PROCEDURE: XR CHEST 2V INDICATIONS: cough, chest congestion TECHNIQUE: 2 views of the chest were acquired. COMPARISON: [facility], CR, XR CHEST 2V, 02/09/2023, 17:58. FINDINGS: Surgical changes and devices: Dual lead left-sided transvenous pacemaker. Lungs and pleura: Small linear retrocardiac opacity and blunting of both posterior costophrenic sulci may indicate atelectasis or small pneumonia. Lungs demonstrate mild diffuse interstitial thickening. Mediastinum: Slight central vascular congestion. Normal size heart. Bones and chest wall: No suspicious bony abnormalities. Soft tissues appear unremarkable. IMPRESSION: 1. Chronic mild interstitial prominence indicating edema or interstitial pneumonia. 2. Small linear airspace opacity in the retrocardiac regions with trace effusions. This may be related to CHF with pulmonary edema. Dictated by: Cammy Barraza M.D. on 02/22/2023 at 15:22 Approved by: Cammy Barraza M.D. on 02/22/2023 at 15:23
== END ==
PROVIDERS: Family Provider Family Medicine; PCP Family Medicine; Referring Provider Family Medicine; Visit Provider Family Medicine
DX: R05.9 Cough, unspecified (principal); R06.02 Shortness of breath
CPT/HCPCS: 71046

== ENCOUNTER 2023-03-07 14:31 | Emergency (ER) | payer MEDICARE, SELFPAY ==
[2023-02-20 14:01] VITALS: BMI 36.6
[2023-03-07 14:50] VITALS: BP 155/102; PULSE 71; RESP 22; TEMP 37.2; O2SAT 94; BMI 33.9
--- NOTE | 2023-03-07 14:58 | DI.RAD.S_ITS ---
PROCEDURE: XR CHEST 1V INDICATIONS: Shortness of breath TECHNIQUE: One view of the chest was acquired. COMPARISON: [facility], CR, XR CHEST 1V, 08/12/2022, 12:50. FINDINGS: Surgical changes and devices: Stable cardiac pacer Lungs and pleura: Lungs are clear. No pleural effusions or pneumothorax. Mediastinum: Mediastinal contours appear normal. Heart size is normal. Bones and chest wall: No suspicious bony lesions. Overlying soft tissues appear unremarkable. IMPRESSION: No acute cardiopulmonary disease process. Dictated by: Alissa Britt MD, PhD on 03/07/2023 at 15:49 Approved by: Alissa Britt MD, PhD on 03/07/2023 at 15:50
[2023-03-07 15:52] LABS: Influenza A - CEPHEID Flu A NEGATIVE (NEGATIVE); Influenza B - CEPHEID Flu B NEGATIVE (NEGATIVE); Respiratory Syncytial Virus Negative (Negative)
[2023-03-07 15:53] LABS: COVID-19 CEPHEID 4-PLEX PCR Negative (Negative)
[2023-03-07 16:29] LABS: Add Manual Diff / Slide Review NO; Basophils Absolute Auto 100 /uL (0-100); Basophils Percent Auto 1.3 % (0-2); Eosinophils Absolute Auto 400 /uL (0-450); Eosinophils Percent Auto 3.8 % (2-4); Hematocrit 44.9 % (36-46); Hemoglobin 14.5 g/dL (12.0-16.0); Lymphocytes Absolute Auto 800 /uL (1100-4500); Lymphocytes Percent Auto 8.7 % (25-40); Mean Corpuscular HGB Conc 32.4 % (30-36); Mean Corpuscular Hemoglobin 27.1 PG (26-34); Mean Corpuscular Volume 83.8 fL (80-100); Monocytes Absolute Auto 800 /uL (0-900); Monocytes Percent Auto 8.2 % (3-14); Neutrophils Absolute Auto 7400 /uL (1500-7000); Platelet Count 254 X10^3/uL (150-400); Red Blood Cell Count 5.35 X10^6/uL (4.0-5.2); Red Cell Distribution Width 14.5 % (11.6-14.8); White Blood Cell Count 9.5 X10^3/uL (4.5-11.0)
[2023-03-07 16:30] LABS: INR 1.8 (0.9-1.3)
[2023-03-07] MEDS: ALBUTEROL/IPRATROPIUM 3 ML AMPUL INH ×2 (16:34→17:15)
[2023-03-07] MEDS: methylPREDNISolone 125 MG/2 ML VIAL IV (16:34)
[2023-03-07 16:36] VITALS: O2SAT 92
[2023-03-07 16:36] LABS: Alanine Aminotransferase 13 IU/L (<35); Albumin 3.8 g/dL (3.5-5.0); Albumin Globulin Ratio 1.3 (1.0-2.8); Alkaline Phosphatase 116 U/L (38-126); Aspartate Aminotransferase 21 IU/L (14-36); Bilirubin Total 0.7 mg/dL (0.2-1.3); Blood Urea Nitrogen 17 mg/dL (7-17); Calcium 9.7 mg/dL (8.4-10.2); Carbon Dioxide 30 mmol/L (22-32); Chloride 98 mmol/L (98-107); Estimated Glomerular Filt Rate > 60 mL/min (>60); Glucose 109 mg/dL (80-110); HEMOLYSIS < 15 (0-50); Potassium 3.9 mmol/L (3.4-5.1); Sodium 136 mmol/L (137-145); Total Protein 6.8 g/dL (6.3-8.2)
[2023-03-07 16:47] LABS: NT-proBNP (BNP-Adult 18+) 1540 pg/mL (<125); Troponin I < 0.012 ng/mL (0.01-0.034)
--- NOTE | 2023-03-07 17:38 | ED_ITS ---
HPI - SOB/Dyspnea General Chief Complaint: Shortness of Breath/Dyspnea Stated Complaint: cough/SOB/T-30/sore back from coughing Time Seen by Provider: 03/07/23 15:14 Source: patient Mode of arrival: Wheelchair Limitations: no limitations History of Present Illness HPI Narrative: This is a 72-year-old female with history of atrial fibrillation on flecainide, Eliquis, hypertension, dyslipidemia, history of bullous pemphigoid with a pacemaker in place. Patient states she started having symptoms around obvious with cough and difficulty with breathing, she went to the walk-in clinic had a chest x-ray which was negative, 10 days ago saw her primary care symptoms have persisted with out fevers or chills. She has discomfort when she coughs but otherwise has no chest pain. She is had shortness of breath with some exertion but notes she had significantly productive cough with green productive sputum that has since decreased somewhat. She has no hemoptysis. It has been a very wet cough. No syncope. Patient states no nausea or vomiting no diarrhea constipation. She sometimes has swelling of her feet been a little bit more lately. She states her cough is worse when she lays flat but she states she can lay flat and use her CPAP at night without issue. Patient did receive a DuoNeb and albuterol here which she found helpful. She notes no acute changes to her medications recently these include flecainide, Eliquis, carvedilol, levothyroxine, losartan, she is on mycophenolate for her bullous pemphigoid but being weaned down, omeprazole, pramipexole and trazodone. She states prior pacemaker denies other major surgeries. States no drug allergies but loop diuretics worsen her bullous pemphigoid. No other known drug allergies. Quit smoking tobacco remotely, no alcohol, no illicit. Dr. Sarah Corbin is her PCP. 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 Related Data Home Medications Medication Instructions Recorded Confirmed cyanocobalamin (vitamin B-12) 1,000 mcg PO DAILY ##0 08/05/16 02/09/23 1,000 mcg tablet,extended release omeprazole magnesium 20 mg 20 mg PO DAILY 06/07/18 02/09/23 tablet,delayed release (Prilosec OTC) losartan 50 mg tablet 50 mg PO DAILY 12/25/18 02/09/23 flecainide 50 mg tablet 100 mg PO BID 06/14/21 02/09/23 potassium chloride 10 mEq 10 meq PO BEDTIME 07/07/21 02/09/23 tablet,extended release(part/cryst) ferrous sulfate 325 mg (65 mg 325 mg PO Q OTHER DAY 08/18/21 02/09/23 iron) tablet mycophenolate mofetil 500 mg tablet 1,000 mg PO BID 02/06/22 02/09/23 acetaminophen 325 mg tablet 650 mg PO Q6H PRN Pain (Scale 09/14/22 02/09/23 Score 1-3) atorvastatin 10 mg tablet 10 mg PO BEDTIME 09/14/22 02/09/23 calcium carbonate 200 mg calcium 1 tab PO DAILY 09/14/22 02/09/23 (500 mg)-vitamin D3 400 unit tablet d-mannose 500 mg capsule 500 mg PO DAILY 09/14/22 02/09/23 guaifenesin 600 mg tablet, 600 mg PO Q12H PRN Congestion 09/14/22 02/09/23 extended release 12 hr (Mucinex) melatonin 3 mg tablet 3 mg PO BEDTIME PRN Insomnia 09/14/22 02/09/23 carvedilol 12.5 mg tablet 12.5 mg PO BID 02/09/23 02/09/23 Previous Rx's Medication Instructions Recorded albuterol sulfate 90 mcg/actuation 2 - 4 puff inhalation Q4H PRN 04/08/20 aerosol inhaler (Ventolin HFA) Shortness Of Breath #8.5 grams apixaban 5 mg tablet (Eliquis) 5 mg PO BID #120 tabs 12/29/21 levothyroxine 75 mcg tablet 75 mcg PO DAILY #72 tabs 12/13/22 pramipexole 0.125 mg tablet 0.125 mg PO BEDTIME #90 tabs 01/06/23 trazodone 50 mg tablet 50 mg PO BEDTIME PRN insomnia #90 01/26/23 tabs tramadol 50 mg tablet 50 mg PO BID PRN Pain (Scale Score 02/08/23 7-10) #60 tabs azithromycin 250 mg tablet See Rx Instructions PO .COMPLEX #6 02/22/23 tabs benzonatate 100 mg capsule 100 mg PO TID PRN cough #30 caps 02/22/23 albuterol sulfate 90 mcg/actuation 2 puff inhalation Q4-6H PRN 03/07/23 aerosol inhaler shortness of breath or wheezing #8.5 grams amoxicillin 875 mg-potassium 1 tab PO BID #20 tabs 03/07/23 clavulanate 125 mg tablet prednisone 10 mg tablets in a dose See Rx Instructions PO .COMPLEX 03/07/23 pack #21 ea Allergies Allergy/AdvReac Type Severity Reaction Status Date / Time furosemide [From Lasix] Allergy Verified 02/09/23 16:57 hydrochlorothiazide Allergy Rash Verified 02/09/23 16:57 spironolactone Allergy Verified 02/09/23 16:57 Review of Systems Review of Systems ROS Unobtainable: All systems reviewed & are unremarkable except as noted in HPI and below Patient History Medical History Abscess of left thigh (~07/2022) Acute CHF (~07/2021) Acute hyponatremia Anemia Asthma Atrial fibrillation by electrocardiography Bullous pemphigoid (~10/2019) C. difficile colitis (~08/2022) Chickenpox Cholelithiasis Chronic kidney disease (CKD) stage G2/A1, mildly decreased glomerular filtration rate (GFR) between 60-89 mL/min/1.73 square meter and albuminuria creatinine ratio less than 30 mg/g (09/06/17) Chronic obstructive pulmonary disease (10/19/16) Class 1 obesity (09/05/16) Clavicle fracture (~08/2022) Diverticulitis Diverticulosis of colon (~12/2020) Eczema Environmental allergies (09/05/16) Fatigue due to sleep pattern disturbance Hepatitis B core antibody positive History of torn meniscus of right knee Hyperlipidemia (01/25/11) Hypertension (01/25/11) Hypothyroidism (~2007) Insomnia due to medical condition Measles Morbid obesity with body mass index (BMI) of 40.0 to 49.9 Osteoarthritis (01/25/11) Pacemaker (~05/2021) Pedal edema Nida-prosthetic fracture around prosthetic hip (~08/2022) Persistent atrial fibrillation Pleural effusion (~2021) Pulmonary embolism (~07/2021) Pulmonary nodules/lesions, multiple Recurrent sinusitis (~1999) Seasonal allergies Sigmoid diverticulosis Skin tear of left upper extremity (~08/2022) Snoring Surgical History Anesthesia History of foot surgery History of hip replacement (~2010) History of hip replacement (~2012) History of radiofrequency ablation procedure for cardiac arrhythmia (~07/2019) Polyp of nasal sinus Status post hysterectomy with oophorectomy (~1996) Family History Father Heart disease Hypertension Mother Heart disease Stroke Hypertension Diabetes mellitus Dementia Grandfather Cancer Grandmother No problems noted. Grandfather No problems noted. Grandmother No problems noted. Brother Pacemaker Social History marital status: household members: spouse occupational status: previously employed Smoking Status: Former smoker alcohol intake: current substance use type: does not use Smoking Status: Former smoker tobacco type: cigarettes alcohol intake frequency: a few times a month Substance Use Type: does not use Exam Narrative Exam Narrative: GEN: well nourished, well appearing female, alert and oriented x 3, patient appears to be in mild distress. HEENT: Atraumatic, pupils are equal round reactive to light, extraocular movements are intact, nares are clear, TMs are clear with no fluid, there is no conjunctival pallor. Throat is clear without any exudates, erythema, tonsillar enlargement or uvular deviation HEART: Regular rate and rhythm without murmur, clicks, rubs. No carotid bruits, pulses are equal in upper and lower extremities. Patient has 2+ edema bilateral lower extremity. LUNGS:Lungs clear to auscultation, no wheezes, rales, crackles, chest moves symmetrically ABD:bowel sounds normal, soft, non-tender, no guarding, rebound, rigidity, no masses noted, no hepatosplenomegaly :No CVA tenderness. MSCL: Non-tender, no muscle atrophy, muscles strength 5/5 upper and lower extremities, full range of motion, normal gait NEURO:CN 2-12 intact, sensation normal Initial Vital Signs Initial Vital Signs: Vital Signs Temperature 99 F 03/07/23 14:50 Pulse Rate 71 03/07/23 14:50 Respiratory Rate 22 03/07/23 14:50 Blood Pressure 155/102 H 03/07/23 14:50 Pulse Oximetry 94 03/07/23 14:50 Oxygen Delivery Method Room Air 03/07/23 14:50 Course Orders Ordered: Discontinued Medications Albuterol/Ipratropium (Albuterol/Ipratropium 3 Ml Ampul) 3 ml INH NOW ONE Stop: 03/07/23 16:26 Last Admin: 03/07/23 16:34 Dose: 3 ml Documented By: ALEX Albuterol/Ipratropium (Albuterol/Ipratropium 3 Ml Ampul) 3 ml INH NOW ONE Stop: 03/07/23 17:04 Last Admin: 03/07/23 17:15 Dose: 3 ml Documented By: ALEX Amoxicillin/Clavulanate Potassium (Amoxicillin/Clav 875/125 Mg) 1 tab PO NOW ONE Stop: 03/07/23 19:31 Last Admin: 03/07/23 19:36 Dose: 1 tab Documented By: SHANTA Methylprednisolone (Methylprednisolone 125 Mg/2 Ml Vial) 125 mg IV NOW ONE Stop: 03/07/23 16:26 Last Admin: 03/07/23 16:34 Dose: 125 mg Documented By: SHANTA Vital Signs Vital signs: Vital Signs - 8 hr 03/07/23 14:50 03/07/23 16:36 03/07/23 19:34 Temperature 99 F Pulse Rate 71 70 Respiratory Rate 22 26 H Blood Pressure 155/102 H 166/82 H Pulse Oximetry 94 92 92 Oxygen Delivery Method Room Air Room Air MDM - SOB/Dyspnea Lab Data 03/07/23 16:07 03/07/23 16:07 Labs: Lab Results 03/07/23 03/07/23 03/07/23 Range/Units 15:00 16:07 16:07 WBC 9.5 (4.5-11.0) X10^3/uL RBC 5.35 H (4.0-5.2) X10^6/uL Hgb 14.5 (12.0-16.0) g/dL Hct 44.9 (36-46) % MCV 83.8 (80-100) fL MCH 27.1 (26-34) PG MCHC 32.4 (30-36) % RDW 14.5 (11.6-14.8) % Plt Count 254 (150-400) X10^3/uL Neut % (Auto) 78.0 H (50-75) % Lymph % (Auto) 8.7 L (25-40) % [place] % (Auto) 8.2 (3-14) % Eos % (Auto) 3.8 (2-4) % Baso % (Auto) 1.3 (0-2) % Neut # (Auto) 7400 H (3106-0957) /uL Lymph # (Auto) 800 L (2254-5361) /uL [place] # (Auto) 800 (0-900) /uL Eos # (Auto) 400 (0-450) /uL Baso # (Auto) 100 (0-100) /uL PT 21.0 H (10.1-12.7) SECONDS INR 1.8 H (0.9-1.3) Sodium (137-145) mmol/L Potassium (3.4-5.1) mmol/L Chloride (98-107) mmol/L Carbon Dioxide (22-32) mmol/L BUN (7-17) mg/dL Creatinine (0.52-1.04) mg/dL Estimated GFR (>60) mL/min BUN/Creatinine Ratio (6-22) Glucose (80-110) mg/dL Lactate (0.7-2.1) mmol/L Calcium (8.4-10.2) mg/dL Total Bilirubin (0.2-1.3) mg/dL AST (14-36) IU/L ALT (<35) IU/L Alkaline Phosphatase (38-126) U/L Troponin I (0.01-0.034) ng/mL NT-Pro-B Natriuret Pep (<125) pg/mL Total Protein (6.3-8.2) g/dL Albumin (3.5-5.0) g/dL Globulin (1.7-4.1) g/dL Albumin/Globulin Ratio (1.0-2.8) SARS-CoV-2 (PCR) Negative (Negative) Influenza A (RT-PCR) Flu a negative (NEGATIVE) Influenza B (RT-PCR) Flu b negative (NEGATIVE) RSV (PCR) Negative (Negative) 03/07/23 03/07/23 Range/Units 16:07 16:07 WBC (4.5-11.0) X10^3/uL RBC (4.0-5.2) X10^6/uL Hgb (12.0-16.0) g/dL Hct (36-46) % MCV (80-100) fL MCH (26-34) PG MCHC (30-36) % RDW (11.6-14.8) % Plt Count (150-400) X10^3/uL Neut % (Auto) (50-75) % Lymph % (Auto) (25-40) % [place] % (Auto) (3-14) % Eos % (Auto) (2-4) % Baso % (Auto) (0-2) % Neut # (Auto) (6232-9714) /uL Lymph # (Auto) (2782-7034) /uL [place] # (Auto) (0-900) /uL Eos # (Auto) (0-450) /uL Baso # (Auto) (0-100) /uL PT (10.1-12.7) SECONDS INR (0.9-1.3) Sodium 136 L (137-145) mmol/L Potassium 3.9 (3.4-5.1) mmol/L Chloride 98 (98-107) mmol/L Carbon Dioxide 30 (22-32) mmol/L BUN 17 (7-17) mg/dL Creatinine 0.81 (0.52-1.04) mg/dL Estimated GFR > 60 (>60) mL/min BUN/Creatinine Ratio 21.0 (6-22) Glucose 109 (80-110) mg/dL Lactate 1.0 (0.7-2.1) mmol/L Calcium 9.7 (8.4-10.2) mg/dL Total Bilirubin 0.7 (0.2-1.3) mg/dL AST 21 (14-36) IU/L ALT 13 (<35) IU/L Alkaline Phosphatase 116 (38-126) U/L Troponin I < 0.012 (0.01-0.034) ng/mL NT-Pro-B Natriuret Pep 1540 H (<125) pg/mL Total Protein 6.8 (6.3-8.2) g/dL Albumin 3.8 (3.5-5.0) g/dL Globulin 3.0 (1.7-4.1) g/dL Albumin/Globulin Ratio 1.3 (1.0-2.8) SARS-CoV-2 (PCR) (Negative) Influenza A (RT-PCR) (NEGATIVE) Influenza B (RT-PCR) (NEGATIVE) RSV (PCR) (Negative) Imaging Data Chest x-ray: Radiologist's Impression: [address] [address] XRay Report Signed Patient: Mishel Reeder MR#: [id number] : 1950 Acct:[id number] Age/Sex: 72 / F Date of Service: 03/07/23 Loc: ED Accession Number: [id number] ?? Procedure: XR chest 1V Ordering Provider: Sheryl Javier D.O. PROCEDURE:? XR CHEST 1V ? INDICATIONS:? Shortness of breath ? TECHNIQUE:? One view of the chest was acquired.? ? COMPARISON:? [facility], , XR CHEST 1V, 08/12/2022, 12:50. ? FINDINGS:? ? Surgical changes and devices:? Stable cardiac pacer ? Lungs and pleura:? Lungs are clear.? No pleural effusions or pneumothorax.? ? Mediastinum:? Mediastinal contours appear normal.? Heart size is normal.? ? Bones and chest wall:? No suspicious bony lesions.? Overlying soft tissues appear unremarkable.? ? ? IMPRESSION:? No acute cardiopulmonary disease process. ? ? Dictated by: Alissa Britt MD, PhD on 03/07/2023 at 15:49 ? ? Approved by: Alissa Britt MD, PhD on 03/07/2023 at 15:50?? CT scan - chest: Radiologist's Impression: [address] [address] [address] Scan Report Signed Patient: Mishel Reeder MR#: [id number] : 1950 Acct:[id number] Age/Sex: 72 / F Date of Service: 03/07/23 Loc: ED Accession Number: [id number] ?? Procedure: CT chest w con Ordering Provider: Sheryl Javier D.O. PROCEDURE:? CT CHEST W CON ? INDICATIONS:? cough, wet productive cough since January. rhonchi, +BNP ? TECHNIQUE:? After the administration of intravenous contrast, 5 mm thick sections acquired from the pulmonary apices to the posterior costophrenic angles.? 1 mm axial lung, 5 mm thick coronal and sagittal reformats and 7 mm axial MIP were acquired.? For radiation dose reduction, the following was used:? automated exposure control, adjustment of mA and/or kV according to patient size.? ? COMPARISON:? [facility], CT, CT CHEST WO CON, 12/09/2020, 12:59. ? FINDINGS:? Image quality:? Excellent.? ? Lungs and pleura:? Patchy bilateral lower lobe airspace consolidations, particularly in the medial left lower lobe where there is a dense subpleural consolidation.? There are areas peribronchial thickening and interstitial thickening involving the medial right lower lobe. ? Minor tree-in-bud nodularity is seen in the lower aspect of the right upper lobe, right middle lobe, and peripheral aspect of the right lower lobe.? Mild tree-in-bud nodularity present in the posterior aspect of the lingula. There is a stable solid nodule laterally in the left upper lobe at a mid lung level measuring 6.5 mm.? No pleural effusions.? Central airways are patent.? Mild diffuse bronchial wall thickening bilaterally. ? Mediastinum:? Heart size at the upper limits of normal.? Pacemaker leads in place.? No pericardial effusion.? Mild coronary artery calcification.? Normal caliber aorta and pulmonary arteries.? No anterior or posterior mediastinal mass.? No significant mediastinal or hilar adenopathy. ? Bones and chest wall:? No suspicious bony lesions.? There is a compression fracture of T6 which is new since 12/09/20.? There is also a compression fracture of L1 with scalloping of the endplates.? No axillary or supraclavicular adenopathy by size criteria.? Thyroid gland has a normal CT appearance.? Left chest pacemaker power pack is present. .? ? Abdomen:? There is a large calcified stone in the neck of the gallbladder measuring 2.1 cm.? The upper abdomen is otherwise within normal limits as visualized. ? IMPRESSION:? ? 1. Interstitial, alveolar, and peribronchial changes in both lungs suggesting acute infection, potentially aspiration. ? 2. No pleural effusion. ? 3. Heart size upper limits of normal with pacemaker in place. ? 4. Development of T6 compression fracture since the prior exam.? Correlate with history and tenderness. ? 5. Cholelithiasis.? ? ? Dictated by: Cammy Barraza M.D. on 03/07/2023 at 19:14 ? ? Approved by: Cammy Barraza M.D. on 03/07/2023 at 19:21?? ECG Data Attestation: I personally reviewed and interpreted this ECG as follows: Prior ECG tracings: available for review Interpretation: Sinus rhythm, rate of 69, rate of 230, pr of 104, qtc 486. Incomplete right bundle-branch, left axis deviation. EKG notes STEMI but appears to be more motion artifact it is beat to be not consistent throughout all beats in each lead does not appear to be acute ST elevation does have some depression in 1 aVL and lateral lead V1 V2 EKG 2. Sinus rhythm rate of 60 7p are 236 QRS of 102 and QTC of 471. No acute ST changes patient's EKG appears consistent from prior to secondary. Patient has priors most recent 09/14/22 paced and similar appearing segments. MDM Narrative Medical decision making narrative: This is a 72-year-old female who describes longstanding cough for the past almost 2 months with shortness of breath, productive sputum that was greenish that is slightly improved but patient has never had resolution. She is had chest x-rays twice before today which were both negative, she is not had any ant ibiotics no fevers or chills but notes some discomfort in her back. Patient states she is had a wet productive cough during that time as well. Patient's O2 has been 94-92% most of time. Patient has very rhonchorous lungs on examination with some mild wheeze she had DuoNebs which did improve her symptoms. Patient's EKG leads as STEMI appears similar to her priors and she is having acute or card iac equivalent type symptoms at this time. She is had shortness of breath but seems much more related to her cough. Patient's labs show an elevated BNP but otherwise negative troponin, renal function, CBC shows leftward shift but no leukocytosis, INR is 1.8 consistent with patient's daily anticoagulant apixaban, sodium and other electrolytes, renal function LFTs and troponin were negative. Be patient's BNP is been much higher in the past and she has some mild edema but lung exam is not consistent with fluid. Discussed with patient she is open to CT of the chest, PE seems less likely with her chronic anticoagulation and she notes she takes her medication regularly. This shows interstitial, alveolar and peribronchial changes suggesting acute infection potentially aspiration central airways are patent patient does have a stable lung nodule that is 6.5 mm patient is aware of the lung nodule. There is some minor tree-in-bud nodularity noted, and patient does have a dense subpleural consolidation consistent with area of patient's discomfort. She is also noted to have a compression fracture at T6 she notes she did have a fall in the past and thinks it might be from that, she has gallstone which was relayed to the patient and she is also aware. Discussed with patient will cover with oral antibiotic, steroids and refill her albuterol was feature which did not have. Would like her to follow up with primary care in the next week for recheck and if not having any improvement in symptoms may need follow up with pulmonology for further workup. Patient's seems comfortable with this plan, she is not had any hypoxia she states she feels but improved after treatments here today and would like to return home. We will hold off on any additional diuretics cc of antibiotics and treatment for her disease improved her symptoms. Discharge Plan Departure Patient Disposition: Home Clinical Impression: Pneumonia, Compression fracture of T6 vertebra, Cholelithiasis, Lung nodule Instructions: DI for Pneumonia -- Adult Activity Restrictions/Additional Instructions: Your imaging today does show changes consistent with potential infection, it may be related to aspiration but you should follow up with primary care and if not improving pulmonology. Call to set up an appointment. You do have a pulmonary nodule, continue to follow with your physician to monitor this. Incidentally your found to have a T6 compression fracture that is new since 2020 imaging and a compression fracture of L1. You have a large gallstone in the gallbladder. Take antibiotics until gone. Use your albuterol 2-4 puffs every 4 hours as needed for wheezing or shortness of breath. Use the spacer with your inhaler. Please take oral antibiotics until gone. Prescription sent to [facility] in [place]. Please return for fevers increasing chest pain, shortness of breath, lightheadedness or passing out, coughing up blood, increasing swelling in your extremities or other new or concerning changes. Prescriptions: New albuterol sulfate 90 mcg/actuation HFA aerosol inhaler 2 puff inhalation Q4-6H PRN (Reason: shortness of breath or wheezing) Qty: 8.5 0RF amoxicillin-pot clavulanate 875-125 mg tablet 1 tab PO BID Qty: 20 0RF prednisone 10 mg tablets,dose pack See Rx Instructions .ROUTE .COMPLEX Qty: 21 0RF Rx Instructions: Take 60 mg p.o. x1 day, then 50 mg p.o. x1 day, then 40 mg p.o. x1 day, then 30 mg p.o. x1 day, then 20 mg p.o. x1 day, then 10 mg p.o. x1 day No Action carvedilol 12.5 mg tablet 12.5 mg PO BID cyanocobalamin (vitamin B-12) 1,000 MCG tablet extended release 1,000 mcg PO DAILY Qty: 0 flecainide 50 mg tablet 100 mg PO BID Eliquis 5 mg tablet 5 mg PO BID Qty: 120 2RF levothyroxine 75 mcg tablet 75 mcg PO DAILY Qty: 72 2RF Rx Instructions: does not take Monday pramipexole 0.125 mg tablet 0.125 mg PO BEDTIME Qty: 90 1RF trazodone 50 mg tablet 50 mg PO BEDTIME PRN (Reason: insomnia) Qty: 90 0RF tramadol 50 mg tablet 50 mg PO BID PRN (Reason: Pain (Scale Score 7-10)) Qty: 60 0RF potassium chloride 10 mEq tablet,ER particles/crystals 10 meq PO BEDTIME Patient Comments: TAKE ONE TABLET BY MOUTH ONE TIME DAILY. azithromycin 250 mg tablet See Rx Instructions PO .COMPLEX Qty: 6 0RF Rx Instructions: For 250 mg dose pack: take 500 mg today (day 1), then 250 mg for 4 days (days 2-5) PO benzonatate 100 mg capsule 100 mg PO TID PRN (Reason: cough) Qty: 30 0RF albuterol sulfate [Ventolin HFA] 90 mcg/actuation HFA aerosol inhaler 2 - 4 puff inhalation Q4H PRN (Reason: Shortness Of Breath) Qty: 8.5 0RF ferrous sulfate 325 mg (65 mg iron) tablet 325 mg PO Q OTHER DAY mycophenolate mofetil 500 mg tablet 1,000 mg PO BID Patient Comments: TAKE TWO TABLETS BY MOUTH TWICE DAILY acetaminophen 325 mg Tablet 650 mg PO Q6H PRN (Reason: Pain (Scale Score 1-3)) atorvastatin 10 mg tablet 10 mg PO BEDTIME melatonin 3 mg Tablet 3 mg PO BEDTIME PRN (Reason: Insomnia) calcium carbonate-vitamin D3 200 mg (500 mg) -400 unit Tablet 1 tab PO DAILY guaifenesin [Mucinex] 600 mg Tablet Extended Release 12hr 600 mg PO Q12H PRN (Reason: Congestion) d-mannose 500 mg Capsule 500 mg PO DAILY omeprazole magnesium [Prilosec OTC] 20 mg Tablet,Delayed Release (Dr/Ec) 20 mg PO DAILY losartan 50 mg tablet 50 mg PO DAILY Referrals: Shira Corbin DO [Primary Care Provider] - Stand Alone Forms: Patient Portal/API
--- NOTE | 2023-03-07 17:50 | DI.CT.S_ITS ---
PROCEDURE: CT CHEST W CON INDICATIONS: cough, wet productive cough since January. rhonchi, +BNP TECHNIQUE: After the administration of intravenous contrast, 5 mm thick sections acquired from the pulmonary apices to the posterior costophrenic angles. 1 mm axial lung, 5 mm thick coronal and sagittal reformats and 7 mm axial MIP were acquired. For radiation dose reduction, the following was used: automated exposure control, adjustment of mA and/or kV according to patient size. COMPARISON: [facility], CT, [facility], 12/09/2020, 12:59. FINDINGS: Image quality: Excellent. Lungs and pleura: Patchy bilateral lower lobe airspace consolidations, particularly in the medial left lower lobe where there is a dense subpleural consolidation. There are areas peribronchial thickening and interstitial thickening involving the medial right lower lobe. Minor tree-in-bud nodularity is seen in the lower aspect of the right upper lobe, right middle lobe, and peripheral aspect of the right lower lobe. Mild tree-in-bud nodularity present in the posterior aspect of the lingula. There is a stable solid nodule laterally in the left upper lobe at a mid lung level measuring 6.5 mm. No pleural effusions. Central airways are patent. Mild diffuse bronchial wall thickening bilaterally. Mediastinum: Heart size at the upper limits of normal. Pacemaker leads in place. No pericardial effusion. Mild coronary artery calcification. Normal caliber aorta and pulmonary arteries. No anterior or posterior mediastinal mass. No significant mediastinal or hilar adenopathy. Bones and chest wall: No suspicious bony lesions. There is a compression fracture of T6 which is new since 12/09/20. There is also a compression fracture of L1 with scalloping of the endplates. No axillary or supraclavicular adenopathy by size criteria. Thyroid gland has a normal CT appearance. Left chest pacemaker power pack is present. . Abdomen: There is a large calcified stone in the neck of the gallbladder measuring 2.1 cm. The upper abdomen is otherwise within normal limits as visualized. IMPRESSION: 1. Interstitial, alveolar, and peribronchial changes in both lungs suggesting acute infection, potentially aspiration. 2. No pleural effusion. 3. Heart size upper limits of normal with pacemaker in place. 4. Development of T6 compression fracture since the prior exam. Correlate with history and tenderness. 5. Cholelithiasis. Dictated by: Cammy Barraza M.D. on 03/07/2023 at 19:14 Approved by: Cammy Barraza M.D. on 03/07/2023 at 19:21
--- NOTE | 2023-03-07 18:53 | PC.NURSE ---
SOFTWARE DEVELOPMENT ANALYST NOTE: pt was incontinent of urine. brief changed and linen changed
[2023-03-07 19:34] VITALS: BP 166/82; PULSE 70; RESP 26; O2SAT 92
[2023-03-07] MEDS: AMOXICILLIN/CLAV 875/125 MG 1 TAB PO (19:36)
== END 2023-03-07 19:50 | disposition home or self-care (01) ==
PROVIDERS: Emergency Provider Emergency Medicine; Family Provider Family Medicine; PCP Family Medicine
DX: J18.9 Pneumonia, unspecified organism (principal); M48.54XA Collapsed vertebra, not elsewhere classified, thoracic region, initial encounter for fracture; K80.20 Calculus of gallbladder without cholecystitis without obstruction; R91.1 Solitary pulmonary nodule; Z79.01 Long term (current) use of anticoagulants; Z20.822 Contact with and (suspected) exposure to COVID-19; I45.10 Unspecified right bundle-branch block; I10 Essential (primary) hypertension
CPT/HCPCS: 0241U; 36415; 71045; 71260; 80053; 83605; 83880; 84484; 85025; 85610; 93005; 93010; 94640; 96374; 99284; J2930

== ENCOUNTER → 2023-08-21 13:32 | Outpatient (CLI) | payer MEDICARE, SELFPAY ==
[2023-02-20 14:01] VITALS: BMI 36.6
--- NOTE | 2023-08-21 13:34 | DI.ECHO.S_ITS ---
[facility] +---------+ [facility] +---------+ : : [address] : : : : [id number] : : : : Phone: [phone]+ Echocardiogram Report + + :Name: NITZA ARAUJO Study Date: 08/21/2023 Height: 62 in : :[facility] ReadingLocation: Weight: 210 lb : : Gender: Female BSA: 2.0 m2 : :: 1950 Age: 73 yrs BP: 161/90 mmHg: :Reason For Study: PAROXYSMAL ATRIAL FIBRILLATION : :Ordering Physician: MERI, : :BETTY Performed By: Nuno Melgar : :Referring: BETTY LOZANO : + + Interpretation Summary The left ventricle is normal in size. Left ventricular systolic function appears normal without focal wall motion abnormalities. The ejection fraction is estimated to be 55-60%. Diastolic parameters suggest a pseudonormalization pattern, consistent with probable elevated filling pressures. The right ventricle is normal in size and function. The right ventricular systolic pressure is estimated to be at least 39 mmHg based on an estimated right atrial pressure of 3 mm Hg. The left atrial size is normal. There is no significant valvular heart disease. The aortic root is normal size. Procedure: A two-dimensional transthoracic echocardiogram with color flow and Doppler was performed. The study quality was technically adequate. Comparison is made with the echocardiogram of 02/28/2019. The heart rate ranged between 67-75 bpm during the study. Left Ventricle: The left ventricle is normal in size. Left ventricular wall thickness is mildly increased. Left ventricular systolic function appears normal without focal wall motion abnormalities. The ejection fraction is estimated to be 55-60%. Diastolic parameters suggest a pseudonormalization pattern, consistent with probable elevated filling pressures. Right Ventricle: The right ventricle is normal in size and function. There is a pacemaker lead in the right ventricle. Atria: The left atrial size is normal. Right atrial size is normal. There is a catheter/pacemaker lead seen in the right atrium. Mitral Valve: The mitral valve is normal in structure and function. There is no mitral valve stenosis. There is trace mitral regurgitation. Aortic Valve: The aortic valve is trileaflet. There is no aortic valve stenosis. No aortic regurgitation is present. Tricuspid Valve: The tricuspid valve is normal in structure and function. There is no tricuspid stenosis. There is mild tricuspid regurgitation. The right ventricular systolic pressure is estimated to be at least 39 mmHg based on an estimated right atrial pressure of 3 mm Hg. Pulmonic Valve: The pulmonic valve is not well visualized. There is no pulmonic valvular stenosis. There is no pulmonic valvular regurgitation. There is no significant valvular heart disease. Great Vessels: The aortic root is normal size. The dimensions of the ascending aorta are normal. The IVC is of normal diameter and collapses greater than 50% with a sniff. This suggests a low right atrial pressure of 3 mm Hg. Pericardium/ Pleura There is no pericardial effusion. There is no pleural effusion. MMode/2D Measurements & Calculations LVIDd: 4.3 cm LVOT diam: 2.1 cm LVIDs: 2.7 cm Ao root diam: 3.2 cm FS: 37.7 % asc Aorta Diam: 3.3 cm IVSd: 1.5 cm Ao Arch Diam (Prox Trans): 2.5 cm LVPWd: 1.2 cm LV abdalla. diameter/BSA (cm/m^2): 2.2 LV sys. diameter/BSA (cm/m^2): 1.4 LA A2 area: 17.9 cm2 RA long axis: 4.2 cm LA A4 area: 15.4 cm2 RA area: 11.0 cm2 LA length (vol): 4.8 cm RA vol: 24.2 ml LA vol: 49.0 ml RA : 12.4 ml/m2 LA vol index: 25.1 ml/m2 IVC diam: 1.9 cm RVD1 (basal): 3.8 cm RVD2 (mid): 3.4 cm TAPSE: 2.4 cm Doppler Measurements & Calculations Ao V2 max: 145.8 cm/sec LVOT Max Jordan: 98.4 cm/sec Ao V2 mean: 112.0 cm/sec LV V1 max P.9 mmHg Ao max P.5 mmHg LV V1 VTI: 21.6 cm Ao mean P.3 mmHg GENESIS(I,D): 2.5 cm2 Ao V2 VTI: 29.8 cm GENESIS(V,D): 2.4 cm2 sev ratio: 0.72 GENESIS indexed to BSA (cm^2/m^2): 1.3 MV E max jordan: 79.8 cm/sec TR max jordan: 300.9 cm/sec MV A max jordan: 65.5 cm/sec TR max P.3 mmHg MV E/A: 1.2 PA V2 max: 105.7 cm/sec Med Peak E' Jordan: 5.0 cm/sec PA V2 mean: 75.8 cm/sec E/E' med: 15.9 PA mean P.5 mmHg Lat Peak E' Jordan: 4.9 cm/sec PA pr(Accel): 36.2 mmHg E/E' lat: 16.3 E/e' average: 16.1 MV dec time: 0.18 sec SV(LVOT): 75.8 ml Reading Physician:10:23 PM
== END ==
LOC: ECHO 13:32
PROVIDERS: Family Provider Family Medicine; PCP Family Medicine; Referring Provider Internal Medicine Cardiovascular Disease; Visit Provider Internal Medicine Cardiovascular Disease
DX: I48.19 Other persistent atrial fibrillation (principal); I48.0 Paroxysmal atrial fibrillation; I07.1 Rheumatic tricuspid insufficiency
CPT/HCPCS: 93306

== ENCOUNTER → 2023-09-21 10:19 | Outpatient (CLI) | payer MEDICARE, SELFPAY ==
[2023-02-20 14:01] VITALS: BMI 36.6
[2023-09-21 10:47] LABS: Hematocrit 44.5 % (36-46); Hemoglobin 14.5 g/dL (12.0-16.0); Mean Corpuscular HGB Conc 32.5 % (30-36); Mean Corpuscular Hemoglobin 28.3 PG (26-34); Platelet Count 192 X10^3/uL (150-400); Red Blood Cell Count 5.12 X10^6/uL (4.0-5.2); Red Cell Distribution Width 15.5 % (11.6-14.8); White Blood Cell Count 6.6 X10^3/uL (4.5-11.0)
[2023-09-21 11:19] LABS: HEMOLYSIS < 15 (0-50); Iron 78 ug/dL (37-170)
[2023-09-21 11:25] LABS: BUN Creatinine Ratio 21.8 (6-22); Blood Urea Nitrogen 19 mg/dL (7-17); Calcium 9.2 mg/dL (8.4-10.2); Carbon Dioxide 31 mmol/L (22-32); Chloride 104 mmol/L (98-107); Cholesterol 154 mg/dL (140-199); Estimated Glomerular Filt Rate > 60 mL/min (>60); Glucose 90 mg/dL (80-110); HDL Cholesterol 53 mg/dL (40-60); HEMOLYSIS < 15 (0-50); LDL Cholesterol Calculated 77 mg/dL (<100); Potassium 4.2 mmol/L (3.4-5.1); Sodium 137 mmol/L (137-145); Triglycerides 120 mg/dL (35-150)
[2023-09-21 11:29] LABS: NT-proBNP (BNP-Adult 18+) 442 pg/mL (<450)
[2023-09-21 11:30] LABS: High Sensitivity CRP - Cardiac 1.9 mg/L (1.0-3.0)
[2023-09-21 11:31] LABS: Percent Iron Saturation 28 % (15-50); Total Iron Binding Capacity 276 ug/dL (265-497); Transferrin 223 mg/dL (206-381)
[2023-09-21 11:41] LABS: Hemoglobin A1C% w Est Avg Glu 5.4 % (4.0-6.0)
[2023-09-21 11:50] LABS: TSH w/ Reflex to FT4 2.57 uIU/mL (0.47-4.68)
[2023-09-21 11:55] LABS: Ferritin 37 ng/mL (11-264)
== END ==
PROVIDERS: Family Provider Family Medicine; PCP Family Medicine; Referring Provider Family Medicine; Visit Provider Family Medicine
DX: I48.91 Unspecified atrial fibrillation (principal); E78.5 Hyperlipidemia, unspecified; J32.9 Chronic sinusitis, unspecified; J40 Bronchitis, not specified as acute or chronic; D64.9 Anemia, unspecified; N18.2 Chronic kidney disease, stage 2 (mild); E66.01 Morbid (severe) obesity due to excess calories; G47.33 Obstructive sleep apnea (adult) (pediatric); E03.9 Hypothyroidism, unspecified
CPT/HCPCS: 36415; 80048; 80061; 82728; 83036; 83540; 83550; 83880; 84443; 85027; 86140

== ENCOUNTER → 2023-10-31 16:47 | Outpatient (CLI) | payer MEDICARE, SELFPAY ==
[2023-02-20 14:01] VITALS: BMI 36.6
== END ==
PROVIDERS: Family Provider Family Medicine; PCP Family Medicine; Visit Provider Physician Assistant Surgical
DX: R31.9 Hematuria, unspecified (principal)
CPT/HCPCS: 87086

== ENCOUNTER → 2023-11-03 11:48 | Outpatient (CLI) | payer MEDICARE, SELFPAY ==
[2023-02-20 14:01] VITALS: BMI 36.6
[2023-11-03 13:11] LABS: Bacteria Urine Few (2-10); Culture Indicated Urine Cult Not Indicated; RBC Urine >100/HPF (0-5/HPF); Squamous Epithelial Cell Urine 0-1 /HPF (0-5/HPF); Urine Volume Low Vol <10mL (spun); WBC Urine 0-1/HPF (0-5/HPF)
== END ==
PROVIDERS: Family Provider Family Medicine; PCP Family Medicine; Visit Provider Family Medicine
DX: R31.9 Hematuria, unspecified (principal)
CPT/HCPCS: 81015

== ENCOUNTER → 2023-11-29 10:25 | Outpatient (CLI) | payer MEDICARE, SELFPAY ==
[2023-02-20 14:01] VITALS: BMI 36.6
== END ==
PROVIDERS: Family Provider Family Medicine; PCP Family Medicine; Referring Provider Internal Medicine Critical Care Medicine; Visit Provider Internal Medicine Critical Care Medicine
DX: R06.02 Shortness of breath (principal); F17.210 Nicotine dependence, cigarettes, uncomplicated; R94.2 Abnormal results of pulmonary function studies
CPT/HCPCS: 94060; 94726; 94729

== ENCOUNTER → 2023-11-30 14:26 | Outpatient (CLI) | payer MEDICARE, SELFPAY ==
[2023-02-20 14:01] VITALS: BMI 36.6
[2023-11-30 16:34] LABS: BUN Creatinine Ratio 21.1 (6-22); Blood Urea Nitrogen 19 mg/dL (7-17); Calcium 9.1 mg/dL (8.4-10.2); Carbon Dioxide 31 mmol/L (22-32); Chloride 103 mmol/L (98-107); Estimated Glomerular Filt Rate > 60 mL/min (>60); Glucose 95 mg/dL (80-110); HEMOLYSIS < 15 (0-50); Potassium 4.7 mmol/L (3.4-5.1); Sodium 139 mmol/L (137-145)
== END ==
PROVIDERS: Family Provider Family Medicine; PCP Family Medicine; Referring Provider Urology; Visit Provider Urology
DX: R31.0 Gross hematuria (principal)
CPT/HCPCS: 36415; 80048

== ENCOUNTER → 2023-12-11 11:04 | Outpatient (CLI) | payer MEDICARE, SELFPAY ==
[2023-02-20 14:01] VITALS: BMI 36.6
--- NOTE | 2023-12-11 11:07 | DI.CT.S_ITS ---
PROCEDURE: CT IVP A/P W/WO INDICATIONS: Gross hematuria TECHNIQUE: Optional 5 mm thick noncontrast images acquired from the diaphragm to the symphysis pubis. After the administration of intravenous contrast, 5 mm thick images acquired from the diaphragm to the symphysis pubis after a 10-minute delay. 2 mm thick coronal and sagittal reformats were then performed of the kidneys and ureters. For radiation dose reduction, the following was used: automated exposure control, adjustment of mA and/or kV according to patient size. COMPARISON: None. FINDINGS: Image quality: Diagnostic. Kidneys and Ureters: Kidneys are mildly atrophic, without hydronephrosis. Small burden of punctate, nonobstructing, bilateral nephrolithiasis. No perinephric fat stranding. There is normal bilateral renal enhancement. Renal calyces appear normal in morphology when filled with contrast. Opacified portions of both ureters demonstrate normal caliber Bladder: Bladder wall thickness is normal. No calcified bladder stones. OTHER: Lower chest: Cardiomegaly. Liver: No solid mass. Gallbladder: Cholelithiasis without wall thickening or adjacent fat stranding to suggest acute cholecystitis. Biliary ducts: No biliary dilation. Pancreas: No ductal dilation. Spleen: Size is within normal limits. Adrenal Glands: No adrenal nodules. Stomach and Bowel: Normal colonic caliber, without significant wall thickening. Colonic diverticulosis without evidence of diverticulitis. Normal appendix. Asymmetric lower rectal wall thickening (series 5, image 208). Peritoneum: No abnormal intraperitoneal fluid. No free air. Ventral Wall: Small umbilical hernia containing fat. Abdominal Nodes: No retroperitoneal or mesenteric adenopathy by size criteria. Vessels: Aorta and inferior vena cava are normal in size. PELVIS: Pelvic Organs: Unremarkable. Pelvic Nodes: No enlarged lymph nodes. Miscellaneous: No inguinal hernias are seen. Bones: No aggressive osseous abnormality. Degenerative disc disease of the lumbar spine. IMPRESSION: Small burden of bilateral, punctate, nonobstructing nephrolithiasis. Cholelithiasis without wall thickening or adjacent fat stranding to suggest acute cholecystitis. Asymmetric low rectal wall thickening. Consider visualization or palpation to exclude mass. Colonic diverticulosis without evidence of diverticulitis. Dictated by: José Harrison M.D. on 12/11/2023 at 14:09 Approved by: José Harrison M.D. on 12/11/2023 at 14:16
[2023-12-11 11:35] LABS: Estimated Glomerular Filt Rate > 60 mL/min (>60)
== END ==
PROVIDERS: Family Provider Family Medicine; PCP Family Medicine; Referring Provider Urology; Visit Provider Urology
DX: R31.0 Gross hematuria (principal); N20.0 Calculus of kidney; K57.90 Diverticulosis of intestine, part unspecified, without perforation or abscess without bleeding; K80.20 Calculus of gallbladder without cholecystitis without obstruction; K42.9 Umbilical hernia without obstruction or gangrene; I51.7 Cardiomegaly
CPT/HCPCS: 36415; 74178; 82565; Q9967

== ENCOUNTER → 2024-09-19 15:33 | Outpatient (CLI) | payer MEDICARE, SELFPAY ==
[2023-02-20 14:01] VITALS: BMI 36.6
--- NOTE | 2024-09-19 15:37 | DI.RAD.S_ITS ---
PROCEDURE: XR RIBS LT MIN 3V W CXR1V INDICATIONS: Rib, ankle and foot pain after fall TECHNIQUE: 3 views of the ribs were acquired, along with a single view chest. COMPARISON: None. FINDINGS: Surgical changes and devices: Left chest wall pacemaker leads are in the region of right atrium and right ventricle. Bones and chest wall: No fractures or dislocations. No suspicious bony lesions. Overlying soft tissues appear unremarkable. Lungs and pleura: No pleural effusions or pneumothorax. Lungs appear clear. Mediastinum: Mediastinal contours appear normal. Heart size is enlarged. IMPRESSION: No gross displaced rib fracture or pneumothorax. Dictated by: Jesse Gonzalez M.D. on 09/19/2024 at 16:39 Approved by: Jesse Gonzalez M.D. on 09/19/2024 at 16:40
--- NOTE | 2024-09-19 15:37 | DI.RAD.S_ITS ---
PROCEDURE: XR ANKLE LT MIN 3V INDICATIONS: Rolled ankle TECHNIQUE: 3 views of the ankle were acquired. COMPARISON: None. FINDINGS: Bones: Radiolucency involving tip of medial malleolus concerning for subtle nondisplaced fracture versus nutrient vessel. No other fracture or dislocation. Ankle mortise is normally aligned. No suspicious bony lesions. Soft tissues: Diffuse ankle soft tissue swelling. No tibiotalar joint effusion. Achilles tendon appears normal. IMPRESSION: Finding may indicate nondisplaced medial malleolus fracture suggest clinical correlation for focal pain in this area. Diffuse ankle soft tissue swelling. Dictated by: Jesse Gonzalez M.D. on 09/19/2024 at 16:42 Approved by: Jesse Gonzalez M.D. on 09/19/2024 at 16:43
--- NOTE | 2024-09-19 15:37 | DI.RAD.S_ITS ---
PROCEDURE: XR FOOT LT MIN 3V INDICATIONS: Rolled ankle TECHNIQUE: 3 views of the foot were acquired. COMPARISON: None. FINDINGS: Bones: Diffuse osteopenia. Postfusion changes are noted at 1st MTP joint with surgical hardware in place. No gross hardware loosening or failure. Near complete bony union at 1st MTP joint is seen. Acute fracture is seen involving 2nd metatarsal neck with plantar displacement of femoral head and overlapping at fracture site. No suspicious bony lesions. Soft tissues: Marked soft tissue swelling over dorsum of midfoot and forefoot is seen. IMPRESSION: Marked dorsal soft tissue swelling. Diffuse osteopenia. Suggestion of displaced 2nd metatarsal neck fracture. Post fusion changes at 1st MTP joint. Dictated by: Jesse Gonzalez M.D. on 09/19/2024 at 16:40 Approved by: Jesse Gonzalez M.D. on 09/19/2024 at 16:42
== END ==
PROVIDERS: Family Provider Family Medicine; PCP Family Medicine; Referring Provider Family Medicine; Visit Provider Physician Assistant Medical
DX: R07.81 Pleurodynia (principal); M25.572 Pain in left ankle and joints of left foot; M79.672 Pain in left foot; M79.89 Other specified soft tissue disorders; Z98.1 Arthrodesis status
CPT/HCPCS: 71101; 73610; 73630

== ENCOUNTER → 2024-10-09 11:17 | Outpatient (CLI) | payer MEDICARE, SELFPAY ==
[2023-02-20 14:01] VITALS: BMI 36.6
[2024-10-09 12:14] LABS: Hemoglobin A1C% w Est Avg Glu 5.1 % (4.0-6.0)
[2024-10-09 12:27] LABS: Alanine Aminotransferase 14 IU/L (<35); Albumin 3.5 g/dL (3.5-5.0); Albumin Globulin Ratio 1.4 (1.0-2.8); Alkaline Phosphatase 120 U/L (38-126); Aspartate Aminotransferase 19 IU/L (14-36); BUN Creatinine Ratio 23.1 (6-22); Bilirubin Total 0.6 mg/dL (0.2-1.3); Blood Urea Nitrogen 25 mg/dL (7-17); Calcium 9.1 mg/dL (8.4-10.2); Carbon Dioxide 29 mmol/L (22-32); Chloride 102 mmol/L (98-107); Cholesterol 152 mg/dL (140-199); Estimated Glomerular Filt Rate 53 mL/min (>60); Globulin 2.5 g/dL (1.7-4.1); Glucose 95 mg/dL (80-110); HDL Cholesterol 54 mg/dL (40-60); HEMOLYSIS < 15 (0-50); LDL Cholesterol Calculated 77 mg/dL (<100); Potassium 4.7 mmol/L (3.4-5.1); Sodium 137 mmol/L (137-145); Triglycerides 105 mg/dL (35-150)
[2024-10-09 12:56] LABS: TSH w/ Reflex to FT4 < 0.02 uIU/mL (0.47-4.68)
[2024-10-09 13:21] LABS: Free T4, Direct Thyroxine 1.73 ng/dL (0.78-2.19)
[2024-10-10 07:39] LABS: CRP, High Sensitivity 3.84 mg/L (0.00-3.00)
== END ==
PROVIDERS: Family Provider Family Medicine; PCP Family Medicine; Referring Provider Family Medicine; Visit Provider Family Medicine
DX: I10 Essential (primary) hypertension (principal); E78.5 Hyperlipidemia, unspecified
CPT/HCPCS: 36415; 80053; 80061; 83036; 84439; 84443; 86140

== ENCOUNTER → 2024-11-18 09:49 | Outpatient (CLI) | payer MEDICARE, SELFPAY ==
[2023-02-20 14:01] VITALS: BMI 36.6
--- NOTE | 2024-11-18 09:52 | DI.RAD.S_ITS ---
PROCEDURE: XR DEXA AXIAL W/VFA INDICATIONS: screen osteoporosis COMPARISON: None. FINDINGS: Lumbar Spine: Bone mineral density 0.836 g/cm2, T score -1.7, previously -1.2. Left Forearm: Bone mineral density 0.404 g/cm2, T score -4.8. Fracture Risk Calculation (when applicable): Not applicable (T score greater or equal to -1.0 to: NORMAL) (T score from -1.1 to -2.4: OSTEOPENIA) (T score less than or equal to -2.5: OSTEOPOROSIS) IMPRESSION: 1. Osteoporosis of the left forearm. 2. Osteopenia of the lumbar spine. Follow-up guidelines as follows: Osteoporosis: Consider a repeat DEXA and Vertebral Fracture Assessment (VFA) exam in 2 years or sooner if medically necessary, to reassess this patient's status. Osteopenia: Consider a repeat DEXA in 2-3 years to reassess this patient's status, or if there is a new clinical indication. Normal: Consider a repeat DEXA in 5 years or sooner, or if there is a new clinical indication. All treatment decisions require clinical judgment and consideration of individual patient factors, including patient preferences, comorbidities, previous drug use, risk factors not captured in the FRAX model (e.g., frailty, falls, vitamin D deficiency, increased bone turnover, interval significant decline in bone density ) and possible under- or over-estimation of fracture risk by FRAX. In addition, the NOF Guide recommends that FDA-approved medical therapies be considered in postmenopausal women and men age >= 50 years with a: * Hip or vertebral (clinical or morphometric) fracture * T-score of <=-2.5 at the spine or hip * Ten-year fracture probability by FRAX of >= 3% for hip fracture or >=20% for major osteoporotic fracture. Dictated by: Poli Kunz M.D. on 11/18/2024 at 12:53 Approved by: Poli Kunz M.D. on 11/18/2024 at 12:54
== END ==
PROVIDERS: Family Provider Family Medicine; PCP Family Medicine; Referring Provider Family Medicine; Visit Provider Family Medicine
DX: Z13.820 Encounter for screening for osteoporosis (principal); M81.0 Age-related osteoporosis without current pathological fracture; M85.88 Other specified disorders of bone density and structure, other site; N95.9 Unspecified menopausal and perimenopausal disorder
CPT/HCPCS: 77081; 77085

== ENCOUNTER → 2024-11-26 15:38 | Outpatient (CLI) | payer MEDICARE, SELFPAY ==
[2023-02-20 14:01] VITALS: BMI 36.6
[2024-11-26 16:58] LABS: Alanine Aminotransferase 19 IU/L (<35); Albumin Globulin Ratio 1.7 (1.0-2.8); Alkaline Phosphatase 92 U/L (38-126); Aspartate Aminotransferase 24 IU/L (14-36); BUN Creatinine Ratio 16.8 (6-22); Bilirubin Total 0.7 mg/dL (0.2-1.3); Blood Urea Nitrogen 21 mg/dL (7-17); Calcium 9.6 mg/dL (8.4-10.2); Carbon Dioxide 28 mmol/L (22-32); Chloride 100 mmol/L (98-107); Estimated Glomerular Filt Rate 45 mL/min (>60); Globulin 2.4 g/dL (1.7-4.1); Glucose 85 mg/dL (70-99); HEMOLYSIS < 15 (0-50); Potassium 4.4 mmol/L (3.4-5.1); Sodium 136 mmol/L (137-145); Total Protein 6.4 g/dL (6.3-8.2)
== END ==
PROVIDERS: Family Provider Family Medicine; PCP Family Medicine; Referring Provider Family Medicine; Visit Provider Family Medicine
DX: N18.2 Chronic kidney disease, stage 2 (mild) (principal)
CPT/HCPCS: 36415; 80053

== ENCOUNTER 2025-02-24 09:45 | Outpatient (RCR) | payer MEDICARE, SELFPAY ==
[2023-02-20 14:01] VITALS: BMI 36.6
--- NOTE | 2025-02-19 15:00 | PT.OIE ---
Current Diagnoses Unsteadiness on feet (02/19/25) Abnormal results of kidney function studies (02/19/25) Past Medical History (Last Updated 02/13/25 @ 14:35 by Chidi Wu MD) Abscess of left thigh (~07/2022) Acute hyponatremia Anemia Asthma Asymptomatic microscopic hematuria Atrial fibrillation by electrocardiography Bullous pemphigoid (~10/2019) C. difficile colitis (~08/2022) Chickenpox Cholelithiasis Chronic kidney disease (CKD) stage G2/A1, mildly decreased glomerular filtration rate (GFR) between 60-89 mL/min/1.73 square meter and albuminuria creatinine ratio less than 30 mg/g (09/06/17) Chronic obstructive pulmonary disease (10/19/16) Class 1 obesity (09/05/16) Clavicle fracture (~08/2022) Diverticulitis Diverticulosis of colon (~12/2020) Dyspnea Eczema Environmental allergies (09/05/16) Fatigue due to sleep pattern disturbance Gross hematuria Hepatitis B core antibody positive History of diverticulitis History of pacemaker History of pulmonary embolism (~07/2021) History of torn meniscus of right knee Hyperlipidemia (01/25/11) Hypertension (01/25/11) Hypothyroidism (~2007) Insomnia due to medical condition Measles Morbid obesity with body mass index (BMI) of 40.0 to 49.9 Obstructive lung disease Osteoarthritis (01/25/11) Pacemaker (~05/2021) Pedal edema Nida-prosthetic fracture around prosthetic hip (~08/2022) Persistent atrial fibrillation Pleural effusion (~2021) Pulmonary nodules/lesions, multiple Recurrent sinusitis (~1999) Seasonal allergies Sigmoid diverticulosis Skin tear of left upper extremity (~08/2022) Past Surgical History (Last Updated 11/30/23 @ 14:23 by Varinder Ng MD) Anesthesia History of foot surgery History of hip replacement (~2010) History of hip replacement (~2012) History of radiofrequency ablation procedure for cardiac arrhythmia (~07/2019) Polyp of nasal sinus Status post hysterectomy with oophorectomy (~1996) Visit Care Team Role Provider Type Shira Corbin DO Attending Provider Physician Family Provider Primary Care Provider Referring Provider Specialty: Medical Address: [address] [place] [address], [address], [address] Email: [email or web address] Physical Therapy Initial Evaluation PT OP: Balance, Vestibular, Neuro Start: 02/19/25 15:09 Freq: Status: Active Protocol: Document 02/19/25 14:15 DCW (Rec: 02/19/25 17:28 DCW [id number]) Out-Patient Physical Therapy Visit Information Visit Information Visit Type Initial Evaluation Visit Start Time 14:15 Visit Stop Time 15:00 Visit Number 1 Number of SPRAYING MACHINE OPERATOR Visits 0 Progress Note Due 03/21/25 Evaluation Information Evaluation Date 02/19/25 Precautions Precautions Pacemaker, A-fib, HTN Current Condition History of Current Condition Onset Date Five month history Current Complaints Weakness, poor balance, falls History of Current Pt is a 74 year old female presenting with complaints Condition of declining balance, poor activity tolerance, and general weakness and deconditioning. Pt reports that she had a fall in August, which resulted in her breaking a toe on her left foot. This resulted in her spending the next six weeks in a wheelchair. Since that time, she has felt very weak and has difficulty walking. Uses a 4WW whenever she leaves the house. No falls since August, but has a very high fear of falling. Pt reports she really just wants to build up her strength and conditioning in order to feel comfortable walking, I don't care if I have to walk with a cane or walker, I just want to feel safe and comfortable. Pt trying to lose weight, has started with injections, has lost ten pounds over the past month, but feels she would be doing better if she could get up and move more. OP-PT Subjective Patient Comments Patient Comments I've got to do something, I've got to get moving somehow. Patient Questionnaires Dizziness Handicap Inventory DHI Score 76% Other Questionnaire Name Falls Efficacy Scale - International: 44/64 and Score Monteiro Balance Assessment Evaluation Sitting to Standing Independent w/out Hands Ability Unsupported Stance 30 seconds Sitting Unsupported, Safely- 2 minutes Feet on Floor Standing to Sitting Safely, Minimal Hand Use Ability Transfer Ability Safely, Minimal Hand Use Unsupported Stance- 3 seconds Eyes Closed Unsupported Stance- Assist to attain, 15 secs Eyes Open Reaching Forward Safely, 5 inches Standing Pick- Up Object From Supervision Floor Look Behind Shoulder Turns Sideways Only - Standing Turning 360 Degrees Supervision/Verbal Cues Unsupported Stance, 2 Steps w/Minimum Assist Alternating Feet on Stair Unsupported Tandem Small Step- 30 seconds Stance Unilateral Leg Lifts Leg/Unable to Hold Stance Total Score Monteiro Total Score ( 34 out of 56 points) Functional Tests 2 Minute Walk Test Distance 240' Device Used 4WW Comments SOB following test Timed Up and Go (TUG) Score 18.67 /c 4WW Comments Three-trial average (21.28, 18.75, 15.98) Hip Strength Hip Manual Muscle Testing Right Flexion (L2) 3 Fair Extension (S1) 4 Good Abduction 4- Good- Adduction 4- Good- External Rotation 4 Good Internal Rotation 3+ Fair+ Left Flexion (L2) 3 Fair Extension (S1) 4 Good Abduction 4- Good- Adduction 4- Good- External Rotation 4 Good Internal Rotation 3+ Fair+ Knee Strength Knee Manual Muscle Testing Right Flexion (S2) 3+ Fair+ Extension (L3) 4- Good- Left Flexion (S2) 4- Good- Extension (L3) 3+ Fair+ Ankle/Foot Strength Ankle and Foot Manual Muscle Testing Right Dorsiflexion (L4) 4- Good- Left Dorsiflexion (L4) 3+ Fair+ Physical Therapy Assessment Rehab Potential Rehabilitation Fair Potential Evaluation Complexity Number of Personal 3 or More Factors/ Comorbidities Number of Body 4 or More Systems Impaired Clinical Unstable Presentation at Evaluation Impairments Impairments Activity Tolerance,Balance,Coordination,Functional Activities,Functional Mobility,Soft Tissue Mobility, Strength,Tone,Transfers Goals Three Impairment Bilateral LE weakness Mcfp Goal (LTG) Pt to improve bilateral hip abduction to 4/5 or greater in order to help stability of hips during gait. LTG Duration 05/20/25 Two Impairment TUG score of 18.67 indicates poor activity tolerance Senior Sustainability Consultant Goal (LTG) Pt to improve TUG score to <13 seconds with use of LRAD in order to demonstrate increased activity tolerance LTG Duration 05/20/25 One Impairment Pt presents as a high falls risk, per Monteiro Score (34/56 ) Senior Sustainability Consultant Goal (LTG) Pt to demonstrate a decrease in falls risk by improving her Monteiro Balance Scale score by at least six points to 40/56 LTG Duration 05/20/25 Assessment Summary Assessment Pt presents with signs and symptoms consistent with referring diagnosis. Pt demonstrates global weakness, deconditioning, and a high falls risk. Pt limited with mobility and activity tolerance. Has a planned trip to [place] next October, currently fearful she will not be able to go unless she improves in all areas. Pt will likely benefit from skilled therapeutic intervention in order to increase LE strength, decrease falls risk, improve activity tolerance, and return to a more independent level of function. Limiting factors may include history of back pain, HTN, A-fib, pacemaker, bilateral THAs, and pulmonary edema. Physical Therapy Plan Frequency and Duration Frequency of 2x/Week Treatment Plan of Care Start 02/19/25 Date Plan of Care End 05/20/25 Date Therapeutic Interventions Therapeutic Balance Training,Coordination Training,Gait Training, Interventions Home Exercise Program,Joint Mobilizations,Manual Therapy,Neuromuscular Re-education,Patient/Caregiver Education,Self-Care/Home Management,Soft Tissue Mobilization,Therapeutic Activities,Therapeutic Exercises,Vestibular Rehabilitation Next Visit Focus/Plan Next Note Type Treatment Note Next Visit Plan Strengthening, activity tolerance, balance
--- NOTE | 2025-02-24 10:36 | PT.OTN ---
Current Diagnoses Unsteadiness on feet (02/24/25) Abnormal results of kidney function studies (02/24/25) Physical Therapy Treatment Note PT OP: Balance, Vestibular, Neuro Start: 02/19/25 15:09 Freq: Status: Active Protocol: Document 02/24/25 09:54 SP (Rec: 02/24/25 10:48 SP [id number]) Out-Patient Physical Therapy Visit Information Visit Information Visit Type Treatment Note Visit Start Time 09:54 Visit Stop Time 10:36 Visit Number 2 Number of COMMISSIONS SPECIALIST Visits 1 Progress Note Due 03/21/25 Precautions Precautions Pacemaker, A-fib, HTN, pt reports has had sensitivity tape on her skin in her past. OP-PT Subjective Patient Comments Patient Comments Pt reports felt ok after eval, ready to work on improving strength and balance. She stated has falls and now fearful of falling. Uses 4WW out in public but in house uses with/without SPC, still have swelling in L ankle. 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 Cardio Equipment Recumbent Elliptical (NuStep) Duration (Minutes) 6 Resistance 4 Seat Position 9 Other BUes, BLEs Gym Equipment Shuttle Recovery Unilateral Squats Details cued knee alignment Resistance 25#> 37 (1 teal) Reps/Time x10 each Bilateral Squats Details cued knee alignment Resistance 50# (1 navy, 1 teal) Reps/Time 20 reps Therapeutic Exercises Sitting Exercises Foot Intrinsic Sitting Exercise arch lift short vs long axis- provided HO Name Reps/Minutes 10 reps Hip Abduction Sitting Exercise added to HEP with HO Name Side bilateral Resistance TB #3 at thighs Reps/Minutes 60 sec hold x1 rep, then 15 reps out/in LAQ Sitting Exercise added to HEP with HO Name Side bilateral Resistance aROM Reps/Minutes 10 SH x10 Other Exercises self STMs Other Exercise Name discussed ball roll plantar surface- didn't trial in PT nor give HO Comments recheck futrure appt racquetball if ok. Manual Therapy Treatment Soft Tissue Mobilization foot/ankle Body Location R Mobilization Type Manual Lymphatic Drainage Comments ed pt and gentle retro glides, Joint Mobilizations R foot Joint MTP gross motor rotation, 1-5 MTP rotation, calcaneal med/lat Grade II Comments gentle mobiltiy, manual DF stretch- limited DF/tight calf Neuro Re-Education Treatment Balance Activities corner balance Details future appt Self-Care/Home Management Treatment Education Patient Education Home Exercise Program,Pain Management,Safety Caregiver Education Ed pt and retro lymphatic glides R foot/ankle prox>distal> prox rest time- verbalized understanding, continue wear compression socks, Other Education Instructed with HOs: strength LAQ hold, resisted seated clamshell hold and mobility, arch lift, next add toe abduction and corner balance. Physical Therapy Assessment Goals Three Impairment Bilateral LE weakness Lamps Tester And Inspector Goal (LTG) Pt to improve bilateral hip abduction to 4/5 or greater in order to help stability of hips during gait. LTG Duration 05/20/25 Two Impairment TUG score of 18.67 indicates poor activity tolerance Lamps Tester And Inspector Goal (LTG) Pt to improve TUG score to <13 seconds with use of LRAD in order to demonstrate increased activity tolerance LTG Duration 05/20/25 One Impairment Pt presents as a high falls risk, per Monteiro Score (34/56 ) Lamps Tester And Inspector Goal (LTG) Pt to demonstrate a decrease in falls risk by improving her Monteiro Balance Scale score by at least six points to 40/56 LTG Duration 05/20/25 Assessment Summary Assessment Pt good tolerance to added LE strengthening seated HEP for home with provided HOs and band, cues for set up and good tiring effort. Provided instruction light gentle retrograde massage to L ankle but has been assisting her, education on gentle lymphatic glides prox>distal then distal>proximal, improved decreased edema in foot. DIscussion continue use compression socks for support circulation. Physical Therapy Plan Frequency and Duration Frequency of 2x/Week Treatment Plan of Care Start 02/19/25 Date Plan of Care End 05/20/25 Date Therapeutic Interventions Therapeutic Balance Training,Coordination Training,Gait Training, Interventions Home Exercise Program,Joint Mobilizations,Manual Therapy,Neuromuscular Re-education,Patient/Caregiver Education,Self-Care/Home Management,Soft Tissue Mobilization,Therapeutic Activities,Therapeutic Exercises,Vestibular Rehabilitation Next Visit Focus/Plan Next Note Type Treatment Note Next Visit Plan Add calf stretch next and toe abduction, recheck HEP as needed. Will progress balance and maybe add corner balance home with HO next appt. POC: Strengthening, activity tolerance, balance 02/24/25: Pt will be going OOT soon to visit [facility].
--- NOTE | 2025-03-10 09:38 | PT.OPDS ---
Current Diagnoses Unsteadiness on feet (02/24/25) Abnormal results of kidney function studies (02/24/25) Visit Care Team Role Provider Type Shira Corbin DO Attending Provider Physician Family Provider Primary Care Provider Referring Provider Specialty: Medical Address: [address] [place] [address], [address], [place], [address] Email: [email or web address] Visit Number Visit Number 2 Discharge Summary PT OP: Balance, Vestibular, Neuro Start: 02/19/25 15:09 Freq: Status: Active Protocol: Document 03/10/25 09:36 DCW (Rec: 03/10/25 09:37 DCW [id number]) Out-Patient Physical Therapy Visit Information Visit Information Visit Type Discharge Summary Physical Therapy Assessment Goals Three Impairment Bilateral LE weakness Gamemaster Goal (LTG) Pt to improve bilateral hip abduction to 4/5 or greater in order to help stability of hips during gait. LTG Duration 05/20/25 Two Impairment TUG score of 18.67 indicates poor activity tolerance Care Home Goal (LTG) Pt to improve TUG score to <13 seconds with use of LRAD in order to demonstrate increased activity tolerance LTG Duration 05/20/25 One Impairment Pt presents as a high falls risk, per Monteiro Score (34/56 ) Care Home Goal (LTG) Pt to demonstrate a decrease in falls risk by improving her Monteiro Balance Scale score by at least six points to 40/56 LTG Duration 05/20/25 Assessment Summary Assessment Pt phoned clinic, stating she had a fall and would like to cancel remaining appointments. Pt understands she will need a new referral in order to return to PT in the future. Physical Therapy Plan Discharge Physical Therapy Discharge Reasons Patient Request Next Visit Focus/Plan Next Note Type Discharge Summary
== END 2025-03-11 11:22 | disposition home or self-care (01) ==
LOC: PHYS 09:45
PROVIDERS: Family Provider Family Medicine; PCP Family Medicine; Referring Provider Family Medicine; Visit Provider Family Medicine
DX: R26.81 Unsteadiness on feet (principal); R94.4 Abnormal results of kidney function studies
CPT/HCPCS: 97110; 97140; 97163; 97535

== ENCOUNTER → 2025-03-14 13:29 | Outpatient (CLI) | payer MEDICARE, SELFPAY ==
[2023-02-20 14:01] VITALS: BMI 36.6
== END ==
PROVIDERS: Family Provider Family Medicine; PCP Family Medicine; Visit Provider Nurse Practitioner Family
DX: R30.0 Dysuria (principal)
CPT/HCPCS: 87077; 87086; 87186

== ENCOUNTER → 2025-03-14 14:06 | Outpatient (CLI) | payer MEDICARE, SELFPAY ==
[2023-02-20 14:01] VITALS: BMI 36.6
[2025-03-14 15:07] LABS: Add Manual Diff / Slide Review NO; Hematocrit 40.8 % (36-46); Hemoglobin 13.6 g/dL (12.0-16.0); Lymphocytes Absolute Auto 700 /uL (1100-4500); Mean Corpuscular HGB Conc 33.3 % (30-36); Mean Corpuscular Hemoglobin 29.5 PG (26-34); Mean Corpuscular Volume 88.6 fL (80-100); Platelet Count 174 X10^3/uL (150-400)
[2025-03-14 15:32] LABS: Alanine Aminotransferase 17 IU/L (<35); Albumin 3.0 g/dL (3.5-5.0); Albumin Globulin Ratio 1.2 (1.0-2.8); Alkaline Phosphatase 73 U/L (38-126); Blood Urea Nitrogen 21 mg/dL (7-17); Calcium 8.8 mg/dL (8.4-10.2); Carbon Dioxide 27 mmol/L (22-32); Chloride 97 mmol/L (98-107); Estimated Glomerular Filt Rate 47 mL/min (>60); Globulin 2.6 g/dL (1.7-4.1); Glucose 98 mg/dL (70-99); HEMOLYSIS < 15 (0-50); Potassium 4.4 mmol/L (3.4-5.1); Sodium 132 mmol/L (137-145); Total Protein 5.6 g/dL (6.3-8.2)
== END ==
PROVIDERS: Family Provider Family Medicine; PCP Family Medicine; Referring Provider Student in an Organized Health Care Education/Training Program; Visit Provider Student in an Organized Health Care Education/Training Program
DX: J44.9 Chronic obstructive pulmonary disease, unspecified (principal); R94.4 Abnormal results of kidney function studies; R30.0 Dysuria
CPT/HCPCS: 36415; 80053; 82785; 85025; 86003; 87077; 87086; 87186

== ENCOUNTER 2025-05-26 14:30 | Outpatient (RCR) | payer MEDICARE, SELFPAY ==
[2025-05-08 14:33] VITALS: BMI 36.6
--- NOTE | 2025-05-21 12:12 | ST.OPIE ---
Visit Care Team Role Provider Type Shira Corbin DO Attending Provider Physician Family Provider Primary Care Provider Referring Provider Specialty: Medical Address: [address] [place] [address], [address], [place], [address] Email: [email or web address] Speech-Language Pathology Initial Evaluation WELT DRAWER Adult Cognitive Linguistic Eval Start: 05/20/25 11:25 Freq: Status: Active Protocol: Document 05/20/25 11:25 MA (Rec: 05/20/25 11:27 MA Desktop) Adult Cognitive Linguistic Evaluation Session Time Visit Start Time 10:45 Visit Stop Time 11:30 Total Visit Minutes 45 Visit Information Visit Number Initial Eval Plan of Care Dates 05/20/25-08/20/25 Insurance Medicare Information Referral Referring Provider Dr. Corbin Reason for Referral signs and symptoms of cognitive function awareness Setting Assessment Location Outpatient Care Visit Type Note Type Initial evaluation Next Note Type Next Note Type Treatment Note Patient Information Identification Type Name Patient History Pt is a 74 year old female seen this date for cognitive -linguistic evaluation at the referral of Dr. Corbin. Pt reports dementia runs in her family and her brother was just diagnosed with Frontotemporal dementia and she has noticed some memory issues herself and wanted to get evaluated. She reports she forgets common things when talking, such as what type of bread she uses for luxembourgish toast casserole. She reports this causes her a lot of frustration. She does not forget family names, to take medications, her appointments or how to complete every day tasks. She has noticed these forgetful moments have been occurring more. She reports her goal is to get her memory tested and learn ways to improve her memory. Hearing Hearing Level Normal Previous Therapy Previous Speech- No Language Therapy Subjective Patient Report Pt lives with her , who also accompanied her to evaluation. She utilizes a walker to walk. She reports she has a history of falls and has been in and out of physical therapy. Informal Assessment Receptive Language Yes Normal Expressive Language Yes Normal Pragmatic Language Yes Normal Speech Normal Yes Cognition Normal Yes Formal Assessment Standardized Test/ Cognitive Linguistic Quick Test (CLQT) Screener Type Administration Complete Results ST administered CLQT with Pt scoring a total score of 4 .0 indicating a severity range of WNL for her age. Subtests that were tested included: attention, memory, executive functions, language, visuospatial skills, and clock drawing. Pt exhibited strengths in memory recall , and generative naming and weaknesses in planning/ processing and executive functions, however still WFL. Findings/Results Language Function Within functional limits Cognitive Function Within functional limits Findings Pt presents with cognition and language WFL. However, Pt report some frustration with everyday life memory recall/naming difficulties. ST is warranted to educate Pt on internal and external memory strategies. Cognitive Communication Deficits Self-awareness of Predictive awareness (able to predict problem; impact Cognitive- of impairments) Communication Deficits Prognosis Prognosis Good Plan of Care Speech-Language Yes Treatment Frequency 1x f/u Patient/Caregiver Described results of evaluation,Patient expressed Education understanding of evaluation,Patient expressed agreement with goals and treatment plans,Family/caregivers expressed understanding of evaluation,Family/caregivers expressed agreement with goals and treatment plan, Patient requires further education/training,Family/ caregivers require further education/training Short Term Goals STG 1: The patient will demonstrate use of internal memory strategies (e.g., chunking, association, rehearsal, visual imagery) during structured recall tasks with minimal cues and 70% accuracy. STG 2: The patient will identify and utilize appropriate external memory aids (e.g., written lists, calendars, pillbox, environmental reminders) during functional tasks with minimal cueing in 70% of opportunities. Core Shaper Sides Goals LTG 1: The patient will improve overall cognitive- communication functioning by independently utilizing appropriate internal and external memory strategies to support daily activities and safety with 80% consistency, as measured across structured tasks and functional interactions.
--- NOTE | 2025-05-21 12:12 | ST.OPPOC ---
Physical, Occupational & Speech Therapy At [facility] Visit Care Team Role Provider Type Shira Corbin DO Attending Provider Physician Family Provider Primary Care Provider Referring Provider Address: [address] , [address], [place], [address] Speech Pathology Plan of Care Plan of Care Dates 05/20/25-08/20/[address] Corbin Patient History Pt is a 74 year old female seen this date for cognitive-linguistic evaluation at the referral of Dr. Corbin. Pt reports dementia runs in her family and her brother was just diagnosed with Frontotemporal dementia and she has noticed some memory issues herself and wanted to get evaluated. She reports she forgets common things when talking, such as what type of bread she uses for british toast casserole. She reports this causes her a lot of frustration. She does not forget family names, to take medications, her appointments or how to complete every day tasks. She has noticed these forgetful moments have been occurring more. She reports her goal is to get her memory tested and learn ways to improve her memory. Self-awareness of Cognitive- Predictive awareness (abl Communication Deficits Short Term Goals STG 1: The patient will demonstrate use of internal memory strategies (e.g., chunking, association, rehearsal, visual imagery) during structured recall tasks with minimal cues and 70 % accuracy. STG 2: The patient will identify and utilize appropriate external memory aids (e.g., written lists, calendars, pillbox, environmental reminders) during functional tasks with minimal cueing in 70% of opportunities. Cage Fighter Goals LTG 1: The patient will improve overall cognitive-communication functioning by independently utilizing appropriate internal and external memory strategies to support daily activities and safety with 80% consistency, as measured across structured tasks and functional interactions. Comment: Electronically Signed by: VITALIY Marrufo 05/21/25 1212 If you are in agreement with this Plan of Care, please return a signed and dated copy. I have reviewed this Plan of Care and certify that the skilled therapy services above are required to meet the patient?s needs. Physician Signature Date Printed Name and Credentials Clinical Instructor Signature Printed Name and Credentials
--- NOTE | 2025-05-26 15:13 | ST.OPTN ---
Visit Care Team Role Provider Type Shira Corbin DO Attending Provider Physician Family Provider Primary Care Provider Referring Provider Address: [address] [place] [address], [address], [place], [address] CARE TEAM ASSISTANT Treatment Note CARE TEAM ASSISTANT Treatment Note Start: 05/26/25 15:06 Freq: Status: Active Protocol: Document 05/26/25 15:06 MA (Rec: 05/26/25 15:12 MA Desktop) Speech Pathology Treatment Note Session Time Visit Start Time 14:30 Visit Stop Time 15:05 Total Visit Minutes 35 Visit Information Visit Number 2 Plan of Care Dates 05/20/25-08/20/25 Setting Treatment Setting Outpatient Care Next Note Type Next Note Type Treatment Note General Information Patient History Pt is a 74 year old female seen this date for cognitive -linguistic evaluation at the referral of Dr. Corbin. Pt reports dementia runs in her family and her brother was just diagnosed with Frontotemporal dementia and she has noticed some memory issues herself and wanted to get evaluated. She reports she forgets common things when talking, such as what type of bread she uses for romanian toast casserole. She reports this causes her a lot of frustration. She does not forget family names, to take medications, her appointments or how to complete every day tasks. She has noticed these forgetful moments have been occurring more. She reports her goal is to get her memory tested and learn ways to improve her memory. Subjective Identification Type Name Observations/Patient Pt arrived to therapy on time. She utilized a walker to Presentation transfer to therapy room. Pt drove her, however remained in waiting room. Objective Short Term Goals STG 1: The patient will demonstrate use of internal memory strategies (e.g., chunking, association, rehearsal, visual imagery) during structured recall tasks with minimal cues and 70% accuracy.- MET STG 2: The patient will identify and utilize appropriate external memory aids (e.g., written lists, calendars, pillbox, environmental reminders) during functional tasks with minimal cueing in 70% of opportunities.- MET Oceanographic Meteorologist Goals LTG 1: The patient will improve overall cognitive- communication functioning by independently utilizing appropriate internal and external memory strategies to support daily activities and safety with 80% consistency, as measured across structured tasks and functional interactions.- MET Treatment Activities ST reviewed and educated Pt on CLQT results. ST educated Pt on internal and external memory strategies, as well as word finding strategies. Assessment Patient Response to Excellent Treatment Rehab Potential Excellent Impairments Cognitive communication Identified Progress Towards Appropriate for Discharge Goals Assessment of ST reviewed CLQT results with Pt. Pt obtained a Improvement composite score of 4.0, indicating overall performance within normal limits. Pt reported occasional word- finding difficulties at home and intermittent memory recall issues, though she was unable to provide a specific example of a memory lapse. ST provided education on internal memory strategies ( association, visualization, repetition, chunking) and external memory strategies (use of a calendar, post-it notes, alarms, and phone reminders). Pt reported she uses a pillbox and multiple calendars to track appointments. Pt was able to demonstrate all strategies effectively, including word-finding strategies such as circumlocution with 100% accuracy. ST recommended discharge from skilled speech therapy at this time, with the option to return if new concerns arise and a new referral is obtained from Pt?s PCP. Pt verbalized understanding and agreement. Reviewed with Goals,Progress Being Made,Home Exercise Program Patient Patient/Caregiver Excellent Understanding Plan Frequency of No Further Therapy Treatment Therapy Discharge from Speech Therapy Recommendations
== END 2025-05-27 13:21 | disposition home or self-care (01) ==
LOC: SP 14:30
PROVIDERS: Family Provider Family Medicine; PCP Family Medicine; Referring Provider Family Medicine; Visit Provider Family Medicine
DX: R41.89 Other symptoms and signs involving cognitive functions and awareness (principal)
CPT/HCPCS: 92507; 92523